=== PATIENT | male | born 1940 | race Caucasian/White ===

== ENCOUNTER → 2017-01-21 | Outpatient (CLI) | payer MEDICARE, OTHER ==
[~2017-01-21] MED LIST: AC325T PO; ASPI-983 PO; ATOR40TA70 PO; AZIT-21 PO; Aspirin PO; Atorvastatin Calcium PO; BUDE10.2 IH; CLOP75TA28 PO; CLPD75T PO; CODE118S2 PO; CYAN10006 PO; ESCI10TA55 PO; FOLI0.4T2 PO; FURO20TA4 PO; GUAI177L2 PO; LISI5TAB14 PO; MAGN1TAB34 PO; MTP25TSR PO; NAPR220C PO; NAPR500T3 PO; NITR0.4T SL; PANT40TA3 PO; PRD20T PO; UMEC62.5 IH
--- NOTE | 2017-01-21 10:38 | Diagnostic Imaging Report ---
PROCEDURE: US right lower extremity venous. TECHNIQUE: Multiple real-time grayscale images were obtained over the right lower extremity in various projections. Additional duplex Doppler and color Doppler images were also obtained. INDICATION: Right leg pain and swelling. COMPARISON: None. TECHNIQUE: The right lower extremity deep venous system was interrogated from the common femoral vein through the popliteal vein. These images were assessed for grayscale appearance, color and spectral Doppler blood flow, compression, and augmentation. FINDINGS: There is no evidence of intraluminal filling defect. Normal compression and augmentation is noted throughout. Soft tissues are unremarkable. IMPRESSION: No sonographic evidence of deep venous thrombosis in the right lower extremity. Dictated by: Dictated on workstation # [id number]
== END ==
LOC: RAD 09:53
PROVIDERS: ATTEND Nurse Practitioner Family
DX: M79.604 Pain in right leg (principal); R22.41 Localized swelling, mass and lump, right lower limb

== ENCOUNTER → 2017-03-25 | Outpatient (CLI) | payer MEDICARE, OTHER ==
--- NOTE | 2017-03-25 13:54 | Diagnostic Imaging Report ---
Three views of the lumbar spine. INDICATION: Back pain. FINDINGS: The alignment of the lumbar spine is satisfactory. The vertebral body heights are preserved. Disc heights also appear preserved. There are sclerotic degenerative changes in the wpt-pe-xthyp lumbar spine facet joints. Minimal osteophyte formation at the L4-L5 and L3-L4 levels seen. There is question of minimal posterior osteophytes at the L4-L5 level. The symphysis pubis demonstrates degenerative sclerotic changes. Calcifications in the right flank are seen which could be vascular or may relate to kidney stones. IMPRESSION: Lower lumbar spine degenerative changes. Dictated by: Dictated on workstation # [id number]
== END ==
LOC: RAD 11:02
PROVIDERS: ATTEND Family Medicine
DX: M47.816 Spondylosis without myelopathy or radiculopathy, lumbar region (principal)
CPT/HCPCS: 72100

== ENCOUNTER 2017-05-08 07:24 | Emergency (ER) | payer MEDICARE, OTHER ==
[~2017-05-08] VITALS: Ht 175.3 cm; Wt 108.9 kg
--- NOTE | 2017-05-08 08:25 | ED Abdominal Pain ---
General Chief Complaint: Abdominal/GI Problems Stated Complaint: PAIN RIGHT SIDE LOWER BACK Nursing Triage Note: c/o pain to lateral right upper abdomen. Onset approx 1000 yesterday. Pt fell in the garden yesterday morning. Mild nausea present. Hx of CABG. Sepsis Screen: No Definite Risk Source of Information: Patient, Spouse Exam Limitations: No Limitations History of Present Illness Time Seen By Provider: 08:20 Initial Comments Patient presents to ER by private conveyance with chief complaint of a nagging aching right middle lower quadrant and right flank abdominal pain that does not radiate for the past 2 days is progressively gotten worse and is worse on sitting but better when he reclines or stands up. It is not colicky. It is constant. It is occasionally brought on with nausea but no vomiting. He has also been belching more. It is not related whether or not he eats or not however he says he's been eating a lot less because of the pain. He has no diarrhea or constipation. He had to balance yesterday were normal and formed. He has vomited. No rash fevers or chills. No shortness of breath or chest pain. He does have a history of CABG and is on Plavix and aspirin. He's had colonoscopy before but has not been told whether he had diverticulosis or not. He's never had a kidney stone before. No history of trauma. Allergies and Home Medications Allergies Coded Allergies: No Known Drug Allergies (Unverified , 09/24/11) Home Medications Aspirin 81 Mg Tablet.dr, 81 MG PO HS, (Reported) Atorvastatin Calcium 40 Mg Tablet, 40 MG PO HS, (Reported) Budesonide/Formoterol Fumarate 10.2 Gm Hfa.aer.ad, 2 PUFF IH HS, (Reported) Clopidogrel Bisulfate 75 Mg Tablet, 75 MG PO DAILY, (Reported) Cyanocobalamin (Vitamin B-12) 1,000 Mcg Tablet, 2,000 MCG PO DAILY, (Reported) TAKES 2 (1000MCG) TABLETS Escitalopram Oxalate 10 Mg Tablet, 10 MG PO DAILY, (Reported) Folic Acid 0.4 Mg Tablet, 0.4 MG PO DAILY, (Reported) Furosemide 20 Mg Tablet, 20 MG PO every other day, (Reported) Naproxen 500 Mg Tablet, 500 MG PO BID PRN for PAIN, (Reported) Pantoprazole Sodium 40 Mg Tablet.dr, 40 MG PO DAILY, (Reported) Umeclidinium [place] 62.5 Mcg Blst.w.dev, 1 PUFF IH DAILY, (Reported) Review of Systems Constitutional: No chills, No diaphoresis Respiratory: Denies Cough, Denies Shortness of Air Cardiovascular: Denies Chest Pain, Denies Lightheadedness, Denies Palpitations Gastrointestinal: See HPI, Abdominal Pain, Denies Blood Streaked Stools, Denies Constipated, Denies Diarrhea, Nausea, Denies Vomiting Genitourinary: Denies Burning, Denies Discharge, Frequency (and hesitancy), Flank Pain (right) Musculoskeletal: back pain (right flank), No joint pain Skin: No pruritus, No rash Psychiatric/Neurological: Denies Numbness, Denies Paresthesia Endocrine: Denies Increased Hunger, Denies Increased Thrist, Denies Increased Urine Hematologic/Lymphatic: Denies Easy Bleeding, Denies Easy Bruising Past Eodnkza-Euooig-Ylodpd Hx Patient Social History Alcohol Use: Occasionally Uses Alcohol Beverage of Choice: Beer Recreational Drug Use: No Recent Foreign Travel: No Contact w/Someone Who Travel: No Recent Infectious Disease Expo: No Immunizations Up To Date Tetanus Booster (TDap): Unknown Date of Pneumonia Vaccine: Mar 29, 2015 Surgeries Surgeries: CABG, Coronary Stent Cardiovascular Cardiac Disorders: Coronary Artery Disease, High Cholesterol Reproductive System Hx Reproductive Disorders: No HIV/AIDS: No Gastrointestinal Gastrointestinal Disorders: Gastroesophageal Reflux Musculoskeletal Musculoskeletal Disorders: Chronic Back Pain HEENT HEENT Disorders: Cataract Blood Transfusions Adverse Reaction to a Blood Tr: No Family Medical History Family Medial History: Abdominal aortic aneurysm 19 FATHER (79 YEARS OLD) Physical Exam Vital Signs VS - Last 72 Hours, by Label 05/08/17 07:52 Temp 96.7 Pulse 55 Resp 16 B/P (MAP) 149/69 Pulse Ox 98 O2 Delivery Room Air Capillary Refill : Less Than 3 Seconds General Appearance: WD/WN, mild distress HEENT: PERRL/EOMI, pharynx normal Neck: non-tender, supple, normal inspection Respiratory: lungs clear, normal breath sounds, no respiratory distress Cardiovascular: normal peripheral pulses, regular rate, rhythm, no edema Peripheral Pulses: 2+ Dorsalis Pedis (R), 2+ Left Dors-Pedis (L) Gastrointestinal: normal bowel sounds, soft, tenderness (right flank mildly tender to palpation) Extremities: non-tender, normal inspection, normal capillary refill Back: normal inspection, no CVA tenderness Neurologic/Psychiatric: alert, oriented x 3 Skin: normal color, warm/dry Progress/Results/Core Measures Results/Orders Lab Results Laboratory Tests Test 05/08/17 08:23 05/08/17 08:45 Range/Units Urine Color YELLOW Urine Clarity VERY CLOUDY H Urine pH 5 5-9 Urine Specific Ingram 1.020 1.016-1.022 Urine Protein 2+ H NEGATIVE Urine Glucose (UA) NEGATIVE NEGATIVE Urine Ketones NEGATIVE NEGATIVE Urine Nitrite NEGATIVE NEGATIVE Urine Bilirubin NEGATIVE NEGATIVE Urine Urobilinogen NORMAL NORMAL MG/DL Urine Leukocyte Esterase 2+ H NEGATIVE Urine RBC (Auto) 5+ H NEGATIVE Urine RBC >100 H /HPF Urine WBC 5-10 H /HPF Urine Crystals PRESENT H /LPF Urine Amorphous Sediment FEW KEVIN URATES H /LPF Urine Bacteria FEW H /HPF Urine Casts NONE /LPF Urine Mucus NEGATIVE /LPF Urine Culture Indicated YES White Blood Count 8.9 4.3-11.0 10^3/uL Red Blood Count 5.10 4.35-5.85 10^6/uL Hemoglobin 14.8 13.3-17.7 G/DL Hematocrit 44 40-54 % Mean Corpuscular Volume 86 80-99 FL Mean Corpuscular Hemoglobin 29 25-34 PG Mean Corpuscular Hemoglobin Concent 34 32-36 G/DL Red Cell Distribution Width 12.9 10.0-14.5 % Platelet Count 168 130-400 10^3/uL Mean Platelet Volume 10.8 H 7.4-10.4 FL Neutrophils (%) (Auto) 81 H 42-75 % Lymphocytes (%) (Auto) 11 L 12-44 % Monocytes (%) (Auto) 8 0-12 % Eosinophils (%) (Auto) 1 0-10 % Basophils (%) (Auto) 0 0-10 % Neutrophils # (Auto) 7.1 1.8-7.8 X 10^3 Lymphocytes # (Auto) 1.0 1.0-4.0 X 10^3 Monocytes # (Auto) 0.7 0.0-1.0 X 10^3 Eosinophils # (Auto) 0.0 0.0-0.3 10^3/uL Basophils # (Auto) 0.0 0.0-0.1 10^3/uL Sodium Level 140 135-145 MMOL/L Potassium Level 3.9 3.6-5.0 MMOL/L Chloride Level 107 98-107 MMOL/L Carbon Dioxide Level 23 21-32 MMOL/L Anion Gap 10 5-14 MMOL/L Blood Urea Nitrogen 30 H 7-18 MG/DL Creatinine 1.48 H 0.60-1.30 MG/DL Estimat Glomerular Filtration Rate 46 BUN/Creatinine Ratio 20 Glucose Level 126 H 70-105 MG/DL Calcium Level 9.2 8.5-10.1 MG/DL Magnesium Level 2.0 1.8-2.4 MG/DL Total Bilirubin 1.7 H 0.1-1.0 MG/DL Aspartate Amino Transf (AST/SGOT) 19 5-34 U/L Alanine Aminotransferase (ALT/SGPT) 20 0-55 U/L Alkaline Phosphatase 97 40-136 U/L Total Protein 7.1 6.4-8.2 GM/DL Albumin 4.1 3.2-4.5 GM/DL My Orders Orders - LUIS M DEE Ct Abdomen/Pelvis Wo (05/08/17 08:22) Cbc With Automated Diff (05/08/17 08:22) Comprehensive Metabolic Panel (05/08/17 08:22) Magnesium (05/08/17 08:22) Ua Culture If Indicated (05/08/17 08:22) Urine Culture (05/08/17 08:23) Vital Signs/I&O Vital Sign - Last 12Hours 05/08/17 07:52 Temp 96.7 Pulse 55 Resp 16 B/P (MAP) 149/69 Pulse Ox 98 O2 Delivery Room Air Blood Pressure Mean: 95 Diagnostic Imaging Diagonstic Imaging: CT Plain Films/CT/US/NM/MRI: abdomen, pelvis Comments NAME: [facility] REC#: [id number] PHYSICIAN: LUIS M DEE MD CC: MUKESH NUNEZ MD; LUIS M DEE Page 2 of 2 RADIOLOGY REPORT VIA [facility]. [place], [place] CC: MUKESH NUNEZ MD; LUIS M DEE Page 1 of 2 RADIOLOGY REPORT NAME: [facility] REC#: [id number] PT STATUS: REG ER : 1940 PHYSICIAN: LUIS M DEE MD ADMIT DATE: 05/08/17/ER Signed Date of Exam: 05/08/17 CT ABDOMEN/PELVIS WO INDICATION: Right-sided abdominal pain. TECHNIQUE: The CT of the abdomen and pelvis was obtained without IV contrast. COMPARISON: There is no prior study for comparison. FINDINGS: The visualized portions of the lung bases are clear. There are no pleural fluid collections. There is no free intraperitoneal air. The liver shows no focal lesion without contrast. There are gallstones in the gallbladder with mild gallbladder distention without significant gallbladder wall thickening. The spleen, adrenals, and pancreas are normal. The left kidney appears unremarkable. The right kidney shows some perinephric edema. There is a cyst in the midpole of the right kidney. There is a stone in the midpole of the right kidney as well in the calyceal region measuring about 5 mm. The right ureter is not appreciably dilated but there is some periureteric edema. There is a tiny calcification along the right posterolateral bladder wall but it is not clear if this has passed into the bladder or is right at the UVJ. This measures less than 2 mm. There are bilateral fat-containing inguinal hernias. IMPRESSION: On the right side, there is perinephric edema without significant hydronephrosis. There is a nonocclusive stone in the midpole of the right kidney. There is a tiny stone or calcification along the right posterolateral bladder wall; however, it is not clear if this is within the bladder or right at the UVJ. There is also a benign-appearing cyst in the right kidney. The left kidney appears unremarkable. There are gallstones in the gallbladder with mild gallbladder distention without wall thickening. Dictated by: Dictated on workstation # [id number] Dict: 05/08/17 1022 Trans: 05/08/17 1101 Interpreted by: MUKESH NUNEZ MD Electronically signed by: MUKESH NUNEZ MD 05/08/17 1101 Reviewed: Reviewed by Me Departure Impression Impression: Primary Impression: Kidney stone Disposition: 01 HOME, SELF-CARE Condition: Stable Departure-Patient Inst. Decision time for Depature: 11:17 Referrals: KASEY MCCLELLAN MD (PCP/Family) Primary Care Physician Patient Instructions: Kidney Stones (DC) Add. Discharge Instructions: Drink lots of fluids including caffeine. If you're having pain you can put a heating pad to the site and use the Percocet one tablet every 6 hours. If you' re on Percocet realizes cause constipation as well as drowsiness and increase her risk of falls so do not mix with alcohol. Take the antibiotic one tablet of Keflex twice a day until completion. Take Flomax every night until you've passed the stone. Strain your urine until you catch the stone or you're no longer having symptoms. If you feel nauseated you can take one tablet of Zofran and allowed to absorb under the tongue. All discharge instructions reviewed with patient and/or family. Voiced understanding. Scripts Oxycodone HCl/Acetaminophen (Percocet 10-325 mg Tablet) 1 Each Tablet 1 EACH PO Q6H Y for BREAKTHROUGH PAIN, #20 TAB 0 Refills Prov: LUIS M DEE 05/08/17 Cephalexin (Keflex) 500 Mg Capsule 500 MG PO BID for 7 Days, #14 CAP 0 Refills Prov: LUIS M DEE 05/08/17 Ondansetron (Zofran Odt) 4 Mg Tab.rapdis 4 MG PO Q4H Y for NAUSEA/VOMITING-1ST LINE for 7 Days, #14 TAB 0 Refills Prov: LUIS M DEE 05/08/17 Tamsulosin HCl (Flomax) 0.4 Mg Cap 0.4 MG PO HS, #7 CAP 0 Refills Prov: LUIS M DEE 05/08/17 Copy Copies To 1: KASEY MCCLELLAN MD, TITUS J May 08, 2017 08:25
[2017-05-08 08:31] LABS: BILIRUBIN,URINE NEGATIVE (NEGATIVE); KETONES,URINE NEGATIVE (NEGATIVE); LEUKOCYTE ESTERASE ,URINE 2+ (NEGATIVE); NITRITE,URINE NEGATIVE (NEGATIVE); PH,URINE 5 (5-9); PROTEIN,URINE 2+ (NEGATIVE); UROBILINOGEN,URINE NORMAL (NORMAL)
[2017-05-08 08:59] LABS: BASOPHILS % (AUTO) 0 % (0-10); EOSINOPHILS % (AUTO) 1 % (0-10); LYMPHOCYTES % (AUTO) 11 % (12-44); MEAN CORPUSCULAR HEMOGLOBIN 29 PG (25-34); MEAN CORPUSCULAR HGB CONC 34 G/DL (32-36); MEAN CORPUSCULAR VOLUME 86 FL (80-99); MEAN PLATELET VOLUME 10.8 FL (7.4-10.4); MONOCYTES # (AUTO) 0.7 X 10^3 (0.0-1.0); MONOCYTES % (AUTO) 8 % (0-12); NEUTROPHILS # (AUTO) 7.1 X 10^3 (1.8-7.8); NEUTROPHILS % (AUTO) 81 % (42-75); PLATELET COUNT 168 10^3/uL (130-400); RED CELL DISTRIBUTION WIDTH 12.9 % (10.0-14.5); WHITE BLOOD COUNT 8.9 10^3/uL (4.3-11.0)
[2017-05-08 09:18] LABS: ALBUMIN 4.1 GM/DL (3.2-4.5); BILIRUBIN,TOTAL 1.7 MG/DL (0.1-1.0); CALCIUM 9.2 MG/DL (8.5-10.1); CREATININE SERUM 1.48 MG/DL (0.60-1.30); POTASSIUM 3.9 MMOL/L (3.6-5.0); TOTAL PROTEIN 7.1 GM/DL (6.4-8.2)
--- NOTE | 2017-05-08 10:35 | Diagnostic Imaging Report ---
INDICATION: Right-sided abdominal pain. TECHNIQUE: The CT of the abdomen and pelvis was obtained without IV contrast. COMPARISON: There is no prior study for comparison. FINDINGS: The visualized portions of the lung bases are clear. There are no pleural fluid collections. There is no free intraperitoneal air. The liver shows no focal lesion without contrast. There are gallstones in the gallbladder with mild gallbladder distention without significant gallbladder wall thickening. The spleen, adrenals, and pancreas are normal. The left kidney appears unremarkable. The right kidney shows some perinephric edema. There is a cyst in the midpole of the right kidney. There is a stone in the midpole of the right kidney as well in the calyceal region measuring about 5 mm. The right ureter is not appreciably dilated but there is some periureteric edema. There is a tiny calcification along the right posterolateral bladder wall but it is not clear if this has passed into the bladder or is right at the UVJ. This measures less than 2 mm. There are bilateral fat-containing inguinal hernias. IMPRESSION: On the right side, there is perinephric edema without significant hydronephrosis. There is a nonocclusive stone in the midpole of the right kidney. There is a tiny stone or calcification along the right posterolateral bladder wall; however, it is not clear if this is within the bladder or right at the UVJ. There is also a benign-appearing cyst in the right kidney. The left kidney appears unremarkable. There are gallstones in the gallbladder with mild gallbladder distention without wall thickening. Dictated by: Dictated on workstation # [id number]
[2017-05-08] MEDS ORDERED: OXYC-202 PO (11:22)
[2017-05-08] MEDS ORDERED: CEPH-507 PO (11:22)
[2017-05-08] MEDS ORDERED: TAMS0.4C98 PO (11:22)
[2017-05-08] MEDS ORDERED: ONDA4TAB8 PO (11:22)
[2017-05-08 11:43] VITALS: BP 142/83
== END 2017-05-08 11:43 | disposition home or self-care (01) ==
LOC: EDUNIT# 07:24 → ER 07:26
DX: N20.0 Calculus of kidney (principal); K21.9 Gastro-esophageal reflux disease without esophagitis; E78.00 Pure hypercholesterolemia, unspecified; I25.10 Atherosclerotic heart disease of native coronary artery without angina pectoris; G89.29 Other chronic pain; M54.9 Dorsalgia, unspecified; Z95.5 Presence of coronary angioplasty implant and graft; Z95.1 Presence of aortocoronary bypass graft; Z79.82 Long term (current) use of aspirin
CPT/HCPCS: 36415; 74176; 80053; 81000; 83735; 85025; 87088

== ENCOUNTER → 2018-02-18 | Outpatient (CLI) | payer MEDICARE, OTHER ==
[~2018-02-18] VITALS: Ht 175.3 cm; Wt 109.3 kg
[~2018-02-18] MED LIST changes: +ASCO100025 PO; +B CO1TAB4 PO; +CATHETER FLUSH 10 ML SYR IV PRN; +CEPH-507 PO; +ESCI20TA45 PO; +METO-352 PO; +NAPR-915 PO; -NAPR500T3 PO; +ONDA4TAB8 PO; +OXYC-202 PO; +REGADENOSON 0.4 MG/5 ML SYR (LEXISCAN) IV ONE; +ROSU10TA26 PO; +TAMS0.4C98 PO
[2018-02-18 08:50] VITALS: BP 176/78
[2018-02-18 09:14] VITALS: BP 149/92
--- NOTE | 2018-02-18 15:29 | STRESS TEST ---
DATE OF SERVICE: 02/18/2018 RESTING AND POST REGADENOSON TECHNETIUM 99M TETROFOSMIN SPECT CT IMAGING ORDERING PHYSICIAN: Rita Ragsdale APRN. PRIMARY PHYSICIAN: Dr. Espinosa. OTHER PHYSICIAN: Dr. Connolly. CLINICAL DIAGNOSES: Coronary artery disease, cardiomyopathy. Baseline images were carried out after injection of 10.64 mCi of technetium-99m Tetrofosmin. This was followed by 0.4 mg regadenoson and 31.2 mCi technetium-99m Tetrofosmin for stress imaging. The electrocardiogram showed sinus rhythm at baseline. Isolated premature ventricular contractions were seen. Electrocardiogram did not change significantly with regadenoson infusion. He tolerated the procedure well and did not report any symptoms. Review of images at rest and following stress indicates a predominantly transient inferolateral perfusion defect. Gated images show normal global left ventricular systolic function and normal regional wall motion. Left ventricular ejection fraction is calculated to be 63%. Left ventricular end diastolic volume is 85 mL. TID is absent (1.08). CONCLUSIONS: 1. The study is indicative of a moderate amount of inferolateral ischemia. 2. Normal global left ventricular systolic function with normal regional wall motion. Left ventricular ejection fraction is calculated to be 63%. Job ID: [id number] DocumentID: [id number] Dictated Date: 02/18/2018 13:09:49 Button Station Worker Date: 02/18/2018 15:28:49 Dictated By: SAMIR CONNOLLY MD, MA, FACP, FACC,
== END ==
LOC: CARD 07:27
PROVIDERS: ATTEND Nurse Practitioner Family
DX: I25.10 Atherosclerotic heart disease of native coronary artery without angina pectoris (principal); I25.5 Ischemic cardiomyopathy
CPT/HCPCS: 78452; 93017

== ENCOUNTER 2018-02-25 08:47 | Day surgery (SDC) | payer MEDICARE, OTHER ==
[~2018-02-25] VITALS: Ht 175.3 cm; Wt 112.0 kg
[2018-02-25] VITALS (10 sets, daily range): BP systolic 119–179; BP diastolic 60–90
[~2018-02-25 08:47] MED LIST changes: -ASCO100025 PO; -B CO1TAB4 PO; -CATHETER FLUSH 10 ML SYR IV PRN; -ESCI20TA45 PO; -METO-352 PO; -REGADENOSON 0.4 MG/5 ML SYR (LEXISCAN) IV ONE; -ROSU10TA26 PO
--- OUTSIDE RECORDS SUMMARY | 2018-02-25 08:55 | XMS REPORT | Continuity of Care Document ---
Author Author [facility] Organization [facility] Address Unknown Phone Unavailable Allergies Active Description Code Type Severity Reaction Onset Reported/Identified Relationship to Patient Clinical Status Yes No Known Drug Allergies [id number] Drug Allergy Unknown N/A 09/24/2011 Medications There is no data. Problems Date Dx Coded Attending Type Code Diagnosis Diagnosed By 09/24/2011 Ot 211.4 BENIGN NEOPL RECTUM/ANUS 09/24/2011 Ot 562.10 DIVERTICULOSIS COLON (W/O MENT OF HEMORR 09/24/2011 Ot V76.51 SCREEN MAL NEOP-COLON 10/26/2011 Ot 079.99 VIRAL INFECTION NOS 10/26/2011 Ot 780.60 FEVER, UNSPECIFIED 03/21/2015 SAMIR CONNOLLY MD, FACC FACP CCDS Ot 272.4 HYPERLIPIDEMIA NEC/NOS 03/21/2015 SAMIR CONNOLLY MD, FACC FACP CCDS Ot 278.00 OBESITY, NOS 03/21/2015 SAMIR CONNOLLY MD, FACC FACP CCDS Ot 338.29 OTHER CHRONIC PAIN 03/21/2015 SAMIR CONNOLLY MD, FACC FACP CCDS Ot 414.01 CORONARY ATHEROSCLEROSIS OF [place] CORON 03/21/2015 SAMIR CONNOLLY MD, FACC FACP CCDS Ot 414.12 DISSECTION OF CORONARY ARTERY 03/21/2015 SAMIR CONNOLLY MD, FACC FACP CCDS Ot 414.2 CHRONIC TOTAL OCCLUSION OF CORONARY [place] 03/21/2015 SAMIR CONNOLLY MD, FACC FACP CCDS Ot 428.0 CONGESTIVE HEART FAILURE NOS 03/21/2015 SAMIR CONNOLLY MD, FACC FACP CCDS Ot 428.31 ACUTE DIASTOLIC HRT FAILURE 03/21/2015 SAMIR CONNOLLY MD, FACC FACP CCDS Ot 447.1 STRICTURE OF ARTERY 03/21/2015 SAMIR CONNOLLY MD, FACC FACP CCDS Ot 593.9 RENAL URETERAL DIS NOS 03/21/2015 SAMIR CONNOLLY MD, FACC FACP CCDS Ot 719.41 JOINT PAIN-SHLDER 03/21/2015 SAMIR CONNOLLY MD, FACC FACP CCDS Ot 724.5 BACKACHE NOS 03/21/2015 CATHLEEN WHITE FACC, SAMIR FACP CCDS Ot E944.4 ADV EFF DIURETICS NEC 03/21/2015 CATHLEEN WHITE FACC, SAMIR FACP CCDS Ot E947.8 ADV EFF MEDICINAL NEC 03/21/2015 CATHLEEN WHITE FACC, SAMIR FACP CCDS Ot V85.36 BODY MASS INDEX 36.0-36.9, ADULT 04/06/2015 TU CLAYTON MD Ot 786.05 04/06/2015 TU CLAYTON MD Ot 786.59 04/28/2015 TU CLAYTON MD Ot 786.05 04/28/2015 TU CLAYTON MD Ot 786.59 05/11/2015 DIMITRI WHITE, JOSE CARLOS [place] Ot 414.00 CORON ATHEROSCLER NOS TYPE VESSEL, NATIV 05/11/2015 JOSE CARLOS MOSLEY MD Ot 724.5 BACKACHE NOS 05/11/2015 JOSE CARLOS MOSLEY MD Ot 782.0 SKIN SENSATION DISTURB 05/11/2015 JOSE CARLOS MOSLEY MD Ot V45.81 AORTOCORONARY BYPASS 05/11/2015 JOSE CARLOS MOSLEY MD Ot V45.82 PERCUTANEOUS TRANSLUM CORON ANGIOPLASTY 05/17/2015 TU CLYATON MD Ot 786.05 05/17/2015 TU CLAYTON MD Ot 786.59 05/17/2015 CATHLEEN WHITE FACC, SAMIR ARAMBULAP CCDS Ot V45.81 05/17/2015 CATHLEEN WHITE FACC, SAMIR FACP CCDS Ot V57.89 06/01/2015 CATHLEEN WHITE FACC, SAMIR FACP CCDS Ot V45.81 06/01/2015 CATHLEEN WHITE FACC, SAMIR FACP CCDS Ot V57.89 06/03/2015 CATHLEEN WHITE FACC, SAMIR FACP CCDS Ot V45.81 06/03/2015 CATHLEEN WHITE FACC, SAMIR FACP CCDS Ot V57.89 06/08/2015 CATHLEEN WHITE FACC, SAMIR FACP CCDS Ot V45.81 AORTOCORONARY BYPASS 06/08/2015 CATHLEEN WHITE FACC, SAMIR ARAMBULAP CCDS Ot V57.89 REHABILITATION PROC NEC 06/11/2015 CATHLEEN MD FACC, ALI FACP CCDS Ot V45.81 06/11/2015 CATHLEEN WHITE FACC, ALI FACP CCDS Ot V57.89 06/14/2015 CATHLEEN WHITE FACC, ALI FACP CCDS Ot V45.81 06/14/2015 CATHLEEN WHITE FACC, ALI FACP CCDS Ot V57.89 06/14/2015 CATHLEEN WHITE FACC, ALI FACP CCDS Ot 272.4 06/14/2015 CATHLEEN WHITE FACC, ALI FACP CCDS Ot 278.00 06/14/2015 CATHLEEN WHITE FACC, ALI FACP CCDS Ot 414.00 06/14/2015 CATHLEEN WHITE FACC, ALI FACP CCDS Ot 414.8 06/14/2015 CATHLEEN WHITE FACC, ALI FACP CCDS Ot V45.81 06/14/2015 CATHLEEN WHITE FACC, ALI FACP CCDS Ot V57.89 06/30/2015 TU CLAYTON MD Ot 786.05 06/30/2015 TU CLAYTON MD Ot 786.59 08/01/2015 KASEY MCCLELLAN MD Ot M50.32 08/09/2015 TU CLAYTON MD Ot 786.05 08/09/2015 TU CLAYTON MD Ot 786.59 08/09/2015 CATHLEEN WHITE FACC, ALI FACP CCDS Ot 272.4 08/09/2015 CATHLEEN WHITE FACC, ALI FACP CCDS Ot 278.00 08/09/2015 CATHLEEN WHITE FACC, ALI FACP CCDS Ot 414.00 08/09/2015 CATHLEEN ARAMBULAC, ALI FACP CCDS Ot 414.8 08/09/2015 CATHLEEN WHITE FACC, ALI FACP CCDS Ot V45.81 08/09/2015 CATHLEEN WHITE FACC, ALI FACP CCDS Ot V57.89 08/09/2015 KASEY MCCLELLAN MD Ot M50.32 08/09/2015 CATHLEEN ARAMBULAC, ALI FACP CCDS Ot E66.9 OBESITY, UNSPECIFIED 08/09/2015 CATHLEEN ARAMBULAC, ALI FACP CCDS Ot I25.10 ATHSCL HEART DISEASE OF [place] CORONARY 08/09/2015 CATHLEEN ARAMBULAC, ALI FACP CCDS Ot I70.0 ATHEROSCLEROSIS OF [place] 08/09/2015 CATHLEEN WIHTE FACC, SAMIR FACP CCDS Ot R07.89 OTHER CHEST PAIN 08/09/2015 CATHLEEN WHITE FACC, SAMIR FACP CCDS Ot R53.83 OTHER FATIGUE 08/09/2015 CATHLEEN WHITE FACC, ALI FACP CCDS Ot Z68.34 BODY MASS INDEX (BMI) 34.0-34.9, ADULT 08/09/2015 CATHLEEN WHITE FACC, ALI FACP CCDS Ot Z79.02 PENITENTIARY (CURRENT) USE OF ANTITHROMBOTI 08/09/2015 CATHLEEN WHITE FACC, SAMIR FACP CCDS Ot Z79.899 OTHER CORRECTION OFFICER (CURRENT) DRUG THERAPY 08/09/2015 CATHLEEN WHITE FACC, SAMIR FACP CCDS Ot Z87.891 PERSONAL HISTORY OF NICOTINE DEPENDENCE 08/09/2015 CATHLEEN WHITE FACC, SAMIR FACP CCDS Ot Z95.1 PRESENCE OF AORTOCORONARY BYPASS GRAFT 08/09/2015 CATHLEEN WHITE FACC, SAMIR FACP CCDS Ot Z98.61 CORONARY ANGIOPLASTY STATUS 08/23/2015 SAMIR CONNOLLY MD, FACC FACP CCDS Ot V45.81 08/23/2015 SAMIR CONNOLLY MD, FACC FACP CCDS Ot V57.89 09/11/2015 SAMIR CONNOLLY MD, FACC FACP CCDS Ot Z48.812 ENCNTR FOR SURGICAL AFTCR FOLLOWING SURG 09/11/2015 CATHLEEN WHITE FACC ALI FACP CCDS Ot Z95.1 PRESENCE OF AORTOCORONARY BYPASS GRAFT 09/14/2015 CATHLEEN WHITE FACC, ALI FACP CCDS Ot Z48.812 09/14/2015 CATHLEEN WHITE FACC, ALI FACP CCDS Ot Z95.1 09/14/2015 CATHLEEN WHITE FACC, ALI FACP CCDS Ot Z48.812 09/14/2015 CATHLEEN WHITE FACC, ALI FACP CCDS Ot Z95.1 09/14/2015 CATHLEEN WHITE FACC, ALI FACP CCDS Ot Z48.812 09/14/2015 CATHLEEN WHITE FACC, ALI FACP CCDS Ot Z95.1 09/14/2015 CATHLEEN WHITE FACC, ALI FACP CCDS Ot Z48.812 09/14/2015 CATHLEEN WHITE FACC, ALI FACP CCDS Ot Z95.1 10/26/2015 CATHLEEN WHITE FAC, ALI FACP CCDS Ot Z48.812 ENCNTR FOR SURGICAL AFTCR FOLLOWING SURG 10/26/2015 CATHLEEN WHITE FAC, ALI FACP CCDS Ot Z95.1 PRESENCE OF AORTOCORONARY BYPASS GRAFT 12/28/2015 YAHIR WHITE, RAMOS S Ot K21.9 GASTRO-ESOPHAGEAL REFLUX DISEASE WITHOUT 12/28/2015 YAHIR WHITE, RAMOS S Ot R06.02 SHORTNESS OF BREATH 12/29/2015 YAHIR WHITE, RAMOS S Ot K21.9 GASTRO-ESOPHAGEAL REFLUX DISEASE WITHOUT 12/29/2015 YAHIR WHITE, RAMOS S Ot R06.02 SHORTNESS OF BREATH 01/02/2016 YAHIR WHITE, RAMOS S Ot K21.9 GASTRO-ESOPHAGEAL REFLUX DISEASE WITHOUT 01/02/2016 YAHIR WHITE, RAMOS S Ot R06.02 SHORTNESS OF BREATH 01/17/2016 YAHIR WHITE, RAMOS S Ot K21.9 GASTRO-ESOPHAGEAL REFLUX DISEASE WITHOUT 01/17/2016 YAHIR WHITE, RAMOS S Ot R06.02 SHORTNESS OF BREATH 01/17/2016 YAHIR WHITE, RAMOS S Ot K21.9 GASTRO-ESOPHAGEAL REFLUX DISEASE WITHOUT 01/17/2016 YAHIR WHITE, RAMOS S Ot R06.02 SHORTNESS OF BREATH 04/03/2016 NABEEL WHITE, ROSITA Ferris Ot K21.9 GASTRO-ESOPHAGEAL REFLUX DISEASE WITHOUT 04/03/2016 NABEEL WHITE, ROSITA Ferris Ot Z01.818 ENCOUNTER FOR OTHER PREPROCEDURAL EXAMIN 04/04/2016 ROSITA LEES MD Ot K21.9 GASTRO-ESOPHAGEAL REFLUX DISEASE WITHOUT 04/04/2016 NABEEL WHITE, ROSITA Ferris Ot Z01.818 ENCOUNTER FOR OTHER PREPROCEDURAL EXAMIN 04/09/2016 NABEEL WHITE, ROSITA Ferris Ot K22.2 ESOPHAGEAL OBSTRUCTION 04/10/2016 ROSITA LEES MD Ot K22.2 ESOPHAGEAL OBSTRUCTION 04/10/2016 ROSITA LEES MD Ot K22.2 ESOPHAGEAL OBSTRUCTION 08/13/2016 TU CLAYTON MD Ot 786.05 SHORTNESS OF BREATH 08/13/2016 TU CLAYTON MD Ot 786.59 CHEST PAIN NEC 08/13/2016 CATHLEEN WHITE FAC, ALI FACP CCDS Ot 272.4 HYPERLIPIDEMIA NEC/NOS 08/13/2016 CATHLEEN WHITE FACC, ALI FACP CCDS Ot 278.00 OBESITY, NOS 08/13/2016 CATHLEEN WHITE FACC, ALI FACP CCDS Ot 414.00 CORON ATHEROSCLER NOS TYPE VESSEL, NATIV 08/13/2016 CATHLEEN WHITE FACC, ALI FACP CCDS Ot 414.8 CHR ISCHEMIC HRT DIS NEC 08/13/2016 VY WHITE, KASEY Gonsalez Ot M50.32 OTHER CERVICAL DISC DEGENERATION, MID-CE 08/13/2016 RAMOS SINCLAIR MD S Ot K21.9 GASTRO-ESOPHAGEAL REFLUX DISEASE WITHOUT 08/13/2016 RAMOS SINCLAIR MD S Ot R06.02 SHORTNESS OF BREATH 08/13/2016 RAMOS SINCLAIR MD S Ot K21.9 GASTRO-ESOPHAGEAL REFLUX DISEASE WITHOUT 08/13/2016 RAMOS SINCLAIR MD S Ot R06.02 SHORTNESS OF BREATH 08/14/2016 CATHLEEN WHITE FACC, SAMIR FACP CCDS Ot E66.09 OTHER OBESITY DUE TO EXCESS CALORIES 08/14/2016 CATHLEEN WHITE FACC, ALI FACP CCDS Ot G47.33 OBSTRUCTIVE SLEEP APNEA (ADULT) (PEDIATR 08/14/2016 CATHLEEN WHITE FACC, ALI FACP CCDS Ot I25.10 ATHSCL HEART DISEASE OF [place] CORONARY 08/14/2016 CATHLEEN WHITE FACC, ALI FACP CCDS Ot I65.23 OCCLUSION AND STENOSIS OF [place] 08/14/2016 CATHLEEN WHITE FACC, ALI FACP CCDS Ot R06.02 SHORTNESS OF BREATH 08/14/2016 CATHLEEN WHITE FACC, ALI FACP CCDS Ot E66.09 OTHER OBESITY DUE TO EXCESS CALORIES 08/14/2016 CATHLEEN WHITE FACC, ALI FACP CCDS Ot G47.33 OBSTRUCTIVE SLEEP APNEA (ADULT) (PEDIATR 08/14/2016 CATHLEEN ARAMBULAC, ALI FACP CCDS Ot I25.10 ATHSCL HEART DISEASE OF [place] CORONARY 08/14/2016 CATHLEEN WHITE FACC, ALI FACP CCDS Ot I65.23 OCCLUSION AND STENOSIS OF [place] 08/14/2016 CATHLEEN WHITE FACC, ALI FACP CCDS Ot R06.02 SHORTNESS OF BREATH 09/06/2016 CATHLEEN WHITE FACC, ALI FACP CCDS Ot E66.09 OTHER OBESITY DUE TO EXCESS CALORIES 09/06/2016 CATHLEEN WHITE FACC, ALI FACP CCDS Ot G47.33 OBSTRUCTIVE SLEEP APNEA (ADULT) (PEDIATR 09/06/2016 CATHLEEN WHITE FACC, SAMIR [facility] CCDS Ot I25.10 ATHSCL HEART DISEASE OF [place] CORONARY 09/06/2016 CATHLEEN WHITE FACC, [facility] CCDS Ot I65.23 OCCLUSION AND STENOSIS OF [place] 09/06/2016 CATHLEEN WHITE FACC, SAMIR [facility] CCDS Ot R06.02 SHORTNESS OF BREATH 01/21/2017 SHEKHAR DAMICO SCROLL MACHINE OPERATOR Ot M79.604 PAIN IN RIGHT LEG 01/21/2017 SHEKHAR DAMICO SCROLL MACHINE OPERATOR Ot M79.604 PAIN IN RIGHT LEG 01/27/2017 SHEKHAR DAMICO SCROLL MACHINE OPERATOR Ot M79.604 PAIN IN RIGHT LEG 01/27/2017 SHEKHAR DAMICO SCROLL MACHINE OPERATOR Ot R22.41 LOCALIZED SWELLING, MASS AND LUMP, RIGHT 02/18/2017 SHEKHAR DAMICO SCROLL MACHINE OPERATOR Ot M79.604 PAIN IN RIGHT LEG 02/18/2017 SHEKHAR DAMICO SCROLL MACHINE OPERATOR Ot R22.41 LOCALIZED SWELLING, MASS AND LUMP, RIGHT 03/26/2017 KASEY MCCLELLAN MD Ot M47.816 SPONDYLOSIS W/O MYELOPATHY OR RADICULOPA 04/17/2017 KASEY MCCLELLAN MD Ot M47.816 SPONDYLOSIS W/O MYELOPATHY OR RADICULOPA 05/08/2017 LUIS M DEE MD Ot E78.00 PURE HYPERCHOLESTEROLEMIA, UNSPECIFIED 05/08/2017 LUIS M DEE MD Ot G89.29 OTHER CHRONIC PAIN 05/08/2017 LUIS M DEE MD Ot I25.10 ATHSCL HEART DISEASE OF [place] CORONARY 05/08/2017 LUIS M DEE MD Ot K21.9 GASTRO-ESOPHAGEAL REFLUX DISEASE WITHOUT 05/08/2017 LUIS M DEE MD Ot M54.5 LOW BACK PAIN 05/08/2017 LUIS M DEE MD Ot M54.9 DORSALGIA, UNSPECIFIED 05/08/2017 LUIS M DEE MD Ot N20.0 CALCULUS OF KIDNEY 05/08/2017 LUIS M DEE MD Ot Z79.82 CORRECTION OFFICER (CURRENT) USE OF ASPIRIN 05/08/2017 LUIS M DEE MD Ot Z95.1 PRESENCE OF AORTOCORONARY BYPASS GRAFT 05/08/2017 LUIS M DEE MD Ot Z95.5 PRESENCE OF CORONARY ANGIOPLASTY IMPLANT 05/10/2017 LUIS M DEE MD Ot E78.00 PURE HYPERCHOLESTEROLEMIA, UNSPECIFIED 05/10/2017 LUIS M DEE MD Ot G89.29 OTHER CHRONIC PAIN 05/10/2017 LUIS M DEE MD Ot I25.10 ATHSCL HEART DISEASE OF [place] CORONARY 05/10/2017 LUIS M DEE MD Ot K21.9 GASTRO-ESOPHAGEAL REFLUX DISEASE WITHOUT 05/10/2017 LUIS M DEE MD Ot M54.5 LOW BACK PAIN 05/10/2017 LUIS M DEE MD Ot M54.9 DORSALGIA, UNSPECIFIED 05/10/2017 LUIS M DEE MD Ot N20.0 CALCULUS OF KIDNEY 05/10/2017 LUIS M DEE MD Ot Z79.82 PENITENTIARY (CURRENT) USE OF ASPIRIN 05/10/2017 LUIS M DEE MD Ot Z95.1 PRESENCE OF AORTOCORONARY BYPASS GRAFT 05/10/2017 LUIS M DEE MD Ot Z95.5 PRESENCE OF CORONARY ANGIOPLASTY IMPLANT 02/13/2018 TU CLAYTON MD Ot 786.05 SHORTNESS OF BREATH 02/13/2018 TU CLAYTON MD Ot 786.59 CHEST PAIN NEC 02/13/2018 CATHLEEN WHITE FACC, ALI FACP CCDS Ot 272.4 HYPERLIPIDEMIA NEC/NOS 02/13/2018 CATHLEEN WHITE FACC, ALI FACP CCDS Ot 278.00 OBESITY, NOS 02/13/2018 CATHLEEN WHITE FACC, ALI FACP CCDS Ot 414.00 CORON ATHEROSCLER NOS TYPE VESSEL, NATIV 02/13/2018 CATHLEEN WHITE FACC, ALI FACP CCDS Ot 414.8 CHR ISCHEMIC HRT DIS NEC 02/13/2018 KASEY MCCLELLAN MD Ot M50.32 OTHER CERVICAL DISC DEGENERATION, MID-CE 02/13/2018 RAMOS SINCLAIR MD Ot K21.9 GASTRO-ESOPHAGEAL REFLUX DISEASE WITHOUT 02/13/2018 RAMOS SINCLAIR MD Ot R06.02 SHORTNESS OF BREATH 02/13/2018 RAMOS SINCLAIR MD Ot K21.9 GASTRO-ESOPHAGEAL REFLUX DISEASE WITHOUT 02/13/2018 YAHIR MD, RAMOS S Ot R06.02 SHORTNESS OF BREATH 02/13/2018 CATHLEEN WHITE FACC, SAMIR FACP CCDS Ot E66.09 OTHER OBESITY DUE TO EXCESS CALORIES 02/13/2018 CATHLEEN WHITE FACC, ALI FACP CCDS Ot G47.33 OBSTRUCTIVE SLEEP APNEA (ADULT) (PEDIATR 02/13/2018 CATHLEEN WHITE FACC, ALI FACP CCDS Ot I25.10 ATHSCL HEART DISEASE OF [place] CORONARY 02/13/2018 CATHLEEN WHITE FACC, ALI FACP CCDS Ot I65.23 OCCLUSION AND STENOSIS OF [place] 02/13/2018 CATHLEEN WHITE FACC, ALI FACP CCDS Ot R06.02 SHORTNESS OF BREATH 02/13/2018 SHEKHAR DAMICO SCROLL MACHINE OPERATOR Ot M79.604 PAIN IN RIGHT LEG 02/13/2018 SHEKHAR DAMICO SCROLL MACHINE OPERATOR Ot R22.41 LOCALIZED SWELLING, MASS AND LUMP, RIGHT 02/13/2018 VY WHITE, KASEY Gonsalez Ot M47.816 SPONDYLOSIS W/O MYELOPATHY OR RADICULOPA Procedures Code Description Performed By Performed On 00.41 PROCEDURE ON TWO VESSELS 03/19/2015 00.48 INSERTION OF FOUR OR MORE VASCULAR STENT 03/19/2015 00.66 PERCUTANEOUS TRANSLUMINAL CORONARY ANGIO 03/19/2015 36.06 CORONARY ARTERY STENT INSERTION NON-DRUG 03/19/2015 88.42 CONTRAST AORTOGRAM 03/19/2015 99.20 INJECT/INFUSE PLATELET INHIBITOR 03/19/2015 Results Test Result Range Whole blood basic metabolic panel - 08/13/16 07:51 Serum or plasma sodium measurement (moles/volume) 142 mmol/L 135-145 Serum or plasma potassium measurement (moles/volume) 4.6 mmol/L 3.6-5.0 Serum or plasma chloride measurement (moles/volume) 106 mmol/L 98-107 Carbon dioxide 27 mmol/L 21-32 Serum or plasma anion gap determination (moles/volume) 9 mmol/L 5-14 Serum or plasma urea nitrogen measurement (mass/volume) 19 mg/dL 7-18 Serum or plasma creatinine measurement (mass/volume) 1.39 mg/dL 0.60-1.30 Serum or plasma urea nitrogen/creatinine mass ratio 14 NRG Serum or plasma creatinine measurement with calculation of estimated glomerular filtration rate 50 NRG Serum or plasma glucose measurement (mass/volume) 120 mg/dL 70-105 Serum or plasma calcium measurement (mass/volume) 9.0 mg/dL 8.5-10.1 Complete urinalysis with reflex to culture - 05/08/17 08:23 Urine color determination YELLOW NRG Urine clarity determination VERY CLOUDY NRG Urine pH measurement by test strip 5 5-9 Specific gravity of urine by test strip 1.020 1.016- 1.022 Urine protein assay by test strip, semi-quantitative 2+ NEGATIVE Urine glucose detection by automated test strip NEGATIVE NEGATIVE Erythrocytes detection in urine sediment by light microscopy 5+ NEGATIVE Urine ketones detection by automated test strip NEGATIVE NEGATIVE Urine nitrite detection by test strip NEGATIVE NEGATIVE Urine total bilirubin detection by test strip NEGATIVE NEGATIVE Urine urobilinogen measurement by automated test strip (mass/volume) NORMAL NORMAL Urine leukocyte esterase detection by dipstick 2+ NEGATIVE Automated urine sediment erythrocyte count by microscopy (number/high power field) > [HPF] NRG Automated urine sediment leukocyte count by microscopy (number/high power field ) [HPF] NRG Bacteria detection in urine sediment by light microscopy FEW NRG Crystals detection in urine sediment by light microscopy PRESENT NRG Casts detection in urine sediment by light microscopy NONE NRG Mucus detection in urine sediment by light microscopy NEGATIVE NRG Complete urinalysis with reflex to culture YES NRG Amorphous sediment detection in urine sediment by light microscopy FEW KEVIN URATES NRG Bacterial urine culture - 05/08/17 08:23 URINE CULTURE RESULTS LOW COLONY COUNT NRG Complete blood count (CBC) with automated white blood cell (WBC) differential - 05/08/17 08:45 Blood leukocytes automated count (number/volume) 8.9 10*3/uL 4.3-11.0 Blood erythrocytes automated count (number/volume) 5.10 10*6/uL 4.35-5.85 Venous blood hemoglobin measurement (mass/volume) 14.8 g/dL 13.3-17.7 Blood hematocrit (volume fraction) 44 % 40-54 Automated erythrocyte mean corpuscular volume 86 [foz_us] 80-99 Automated erythrocyte mean corpuscular hemoglobin (mass per erythrocyte) 29 pg 25-34 Automated erythrocyte mean corpuscular hemoglobin concentration measurement ( mass/volume) 34 g/dL 32-36 Automated erythrocyte distribution width ratio 12.9 % 10.0-14.5 Automated blood platelet count (count/volume) 168 10*3/uL 130-400 Automated blood platelet mean volume measurement 10.8 [foz_us] 7.4-10.4 Automated blood neutrophils/100 leukocytes 81 % 42-75 Automated blood lymphocytes/100 leukocytes 11 % 12-44 Blood monocytes/100 leukocytes 8 % 0-12 Automated blood eosinophils/100 leukocytes 1 % 0-10 Automated blood basophils/100 leukocytes 0 % 0-10 Blood neutrophils automated count (number/volume) 7.1 10*3 1.8-7.8 Blood lymphocytes automated count (number/volume) 1.0 10*3 1.0-4.0 Blood monocytes automated count (number/volume) 0.7 10*3 0.0-1.0 Automated eosinophil count 0.0 10*3/uL 0.0-0.3 Automated blood basophil count (count/volume) 0.0 10*3/uL 0.0-0.1 Comprehensive metabolic panel - 05/08/17 08:45 Serum or plasma sodium measurement (moles/volume) 140 mmol/L 135-145 Serum or plasma potassium measurement (moles/volume) 3.9 mmol/L 3.6-5.0 Serum or plasma chloride measurement (moles/volume) 107 mmol/L 98-107 Carbon dioxide 23 mmol/L 21-32 Serum or plasma anion gap determination (moles/volume) 10 mmol/L 5-14 Serum or plasma urea nitrogen measurement (mass/volume) 30 mg/dL 7-18 Serum or plasma creatinine measurement (mass/volume) 1.48 mg/dL 0.60-1.30 Serum or plasma urea nitrogen/creatinine mass ratio 20 NRG Serum or plasma creatinine measurement with calculation of estimated glomerular filtration rate 46 NRG Serum or plasma glucose measurement (mass/volume) 126 mg/dL 70-105 Serum or plasma calcium measurement (mass/volume) 9.2 mg/dL 8.5-10.1 Serum or plasma total bilirubin measurement (mass/volume) 1.7 mg/dL 0.1-1.0 Serum or plasma alkaline phosphatase measurement (enzymatic activity/volume) 97 U/L 40-136 Serum or plasma aspartate aminotransferase measurement (enzymatic activity/ volume) 19 U/L 5-34 Serum or plasma alanine aminotransferase measurement (enzymatic activity/volume ) 20 U/L 0-55 Serum or plasma protein measurement (mass/volume) 7.1 g/dL 6.4-8.2 Serum or plasma albumin measurement (mass/volume) 4.1 g/dL 3.2-4.5 Magnesium - 05/08/17 08:45 Magnesium 2.0 mg/dL 1.8-2.4 Encounters ACCT No. Visit Date/Time Discharge Status Pt. Type Provider Facility Loc./Unit Complaint [id number] 02/18/2018 07:27:00 02/18/2018 23:59:59 CLS Outpatient JOI PALACIOS [facility] CARD CAD,CARDIOMYOPATHY, ISCHEMIC [id number] 05/08/2017 07:26:00 05/08/2017 11:43:00 DIS Emergency LUIZ WHITE, LUIS M Crenshaw [facility] ER PAIN RIGHT SIDE LOWER BACK [id number] 03/25/2017 11:02:00 03/25/2017 23:59:59 CLS Outpatient KASEY MCCLELLAN MD [facility] RAD BACK PAIN [id number] 01/21/2017 09:53:00 01/21/2017 23:59:59 CLS Outpatient SHEKHAR DAMICO [facility] RAD R LEG PAIN, SWELLING [id number] 08/13/2016 07:43:00 08/13/2016 23:59:59 CLS Outpatient CATHLEEN WHITE FACC, SAMIR STARKS CCDS [facility] RAD OBESITY,BENJAMIN, CAD,SOB [id number] 04/09/2016 08:34:00 04/09/2016 11:45:00 DIS Outpatient ROSITA LEES MD [facility] SDC REFLEX [id number] 04/03/2016 05:38:00 04/03/2016 09:54:00 DIS Outpatient ROSITA LEES MD [facility] PREOP REFLEX [id number] 12/28/2015 16:23:00 12/28/2015 23:59:59 CLS Outpatient RAMOS SINCLAIR MD [facility] RT SOA [id number] 12/27/2015 08:34:00 12/27/2015 23:59:59 CLS Outpatient RAMOS SINCLAIR MD [facility] RAD GERD [id number] 10/24/2015 12:01:00 10/26/2015 13:19:00 DIS Outpatient CATHLEEN WHITE FACC, ALI FACP CCDS [facility] CR STATUS POST ACB [id number] 08/31/2015 08:33:00 09/11/2015 00:01:00 DIS Outpatient CATHLEEN WHITE FACC, ALI FACP CCDS [facility] CR STATUS POST ACB [id number] 08/09/2015 07:30:00 08/09/2015 17:20:00 DIS Outpatient CATHLEEN WHITE FACC, ALI FACP CCDS [facility] CATH CAD,CHEST PAIN,HLP,CARDIO MYOPATHY [id number] 07/07/2015 07:26:00 07/07/2015 23:59:59 CLS Outpatient KASEY MCCLELLAN MD [facility] RAD NECK PAIN [id number] 06/08/2015 11:41:00 06/08/2015 00:01:00 DIS Outpatient CATHLEEN WHITE FACC, ALI FACP CCDS [facility] CR STATUS POST ACB [id number] 05/18/2015 10:01:00 05/18/2015 23:59:59 CLS Outpatient CATHLEEN WHITE FACC, ALI FACP CCDS [facility] CARD CAD,ISCHEMIC CARDIOMOPATHY [id number] 05/11/2015 16:31:00 05/11/2015 18:38:00 DIS Emergency JOSE CARLOS MOSLEY MD [facility] ER L ARM PAIN [id number] 03/18/2015 12:00:00 03/21/2015 15:04:00 DIS Inpatient CATHLEEN WHITE FACC, ALI FACP CCDS [facility] CSD ANGINA,CHF [id number] 03/16/2015 11:08:00 03/16/2015 23:59:59 CLS Outpatient TU CLAYTON MD [facility] RAD SOB,CHEST PRESSURE [id number] 10/26/2011 10:45:00 Document Registration [id number] 09/24/2011 07:53:00 Document Registration
--- OUTSIDE RECORDS SUMMARY | 2018-02-25 08:55 | XMS REPORT | CCD ---
Author Author [facility]osa Organization [facility] Address [address] [place] [address] Phone Care Team Providers Care Senior Web Analyst Name Role Phone PP Unavailable CCM Unavailable Summary Purpose Interface Exchange Insurance Providers Payer name Policy type / Coverage type Covered republican ID Effective Begin Date Effective End Date WPS Medicare Part B Medicare Part B [id number] Unknown Unknown Cigna Medicare Part B [id number] Unknown Unknown Family history Grandfather Diagnosis Age At Onset lung cancer Unknown Runs in the family Diagnosis Age At Onset Cancer Unknown Grandfather Diagnosis Age At Onset Cancer Unknown Social History Social History Element Codes Description Effective Dates Marital status Unknown Nitza 07/05/2015 Number of children Unknown 3 07/05/2015 Employment Unknown Retired 07/05/[address]: 1710178 Quit over 10 years ago 07/05/[address]: 179261 Currently drinks alcohol beer 07/05/2015 Allergies, Adverse Reactions, Alerts Allergies, Adverse Reactions, Alerts data not found Past Medical History Illness Codes Condition Status Onset Date Resolved Date Cervicalgia ICD-9: 723.1 ICD-10: M54.2 Active 10/07/2017 Unknown Essential (primary) hypertension ICD-9: 401.1 ICD-10: I10 Active 07/24/2016 Unknown Myalgia ICD-9: 729.1 ICD-10: M79.1 Active 10/07/2017 Unknown Generalized anxiety disorder ICD-9: 300.02 ICD-10: F41.1 Active 03/21/2016 Unknown Major depressive disorder, recurrent, mild ICD-9: 296.31 ICD-10: F33.0 Active 03/21/2016 Unknown Low back pain ICD-9: 724.2 ICD-10: M54.5 Active 03/19/2017 Unknown Mixed hyperlipidemia ICD-9: 272.2 ICD-10: E78.2 Active 07/24/2016 Unknown Contusion of right lower leg, initial encounter ICD-9: 924.5 ICD-10: S80.11XA Active 08/02/2016 Unknown Localized edema ICD-9 : 782.3 ICD-10: R60.0 Active 01/21/2017 Unknown Pain in right lower leg ICD-9: 729.5 ICD-10: M79.661 Active 01/21/2017 Unknown Major depressive disorder, recurrent, moderate ICD-9: 296.32 ICD-10: F33.1 Active 01/11/2016 Unknown Encounter for general adult medical examination without abnormal findings ICD-9: V70.9 ICD-10: Z00.00 Active 11/16/2016 Unknown Chronic obstructive pulmonary disease with (acute) exacerbation ICD-9: 491.21 ICD-10: J44.1 Active 07/24/2016 Unknown Acute laryngopharyngitis ICD-9: 465.0 ICD-10: J06.0 Active 09/16/2016 Unknown Other allergic rhinitis ICD-9: 477.8 ICD-10: J30.89 Active 09/16/2016 Unknown Acute recurrent maxillary sinusitis ICD-9: 461.0 ICD-10: J01.01 Active 07/24/2016 Unknown Gastro-esophageal reflux disease without esophagitis ICD-9: 530.81 ICD-10: K21.9 Active 03/21/2016 Unknown Coronary angioplasty status ICD-9: V45.82 ICD-10: Z98.61 Active 01/11/2016 Unknown Essential (primary) hypertension ICD-9: 401.9 ICD-10: I10 Active 01/11/2016 Unknown Hyperlipidemia, unspecified ICD-9: 272.4 ICD-10: E78.5 Active 01/11/2016 Unknown Hypertension Unknown Active 09/13/2015 Unknown Hyperlipidemia Unknown Active 07/05/2015 Unknown Osteoarthritis Unknown Active 07/05/2015 Unknown Personal history of other diseases of the circulatory system ICD-9: V12.59 ICD-10: Z86.79 Active 07/04/2015 Unknown Polyneuropathy, unspecified ICD-9: 356.9 ICD-10: G62.9 Active 07/04/2015 Unknown Unspecified osteoarthritis, unspecified site ICD-9: 715.90 ICD-10: M19.90 Active 07/04/2015 Unknown Problems Condition Codes Effective Dates Condition Status Cervicalgia ICD-9: 723.1 ICD-10: M54.2 10/07/2017 Active Essential (primary) hypertension ICD-9: 401.1 ICD-10: I10 07/24/2016 Active Myalgia ICD-9: 729.1 ICD-10: M79.1 10/07/2017 Active Generalized anxiety disorder ICD-9: 300.02 ICD-10: F41.1 03/21/2016 Active Major depressive disorder, recurrent, mild ICD-9: 296.31 ICD-10: F33.0 03/21/2016 Active Low back pain ICD-9: 724.2 ICD-10: M54.5 03/19/2017 Active Mixed hyperlipidemia ICD-9: 272.2 ICD-10: E78.2 07/24/2016 Active Contusion of right lower leg, initial encounter ICD-9: 924.5 ICD-10: S80.11XA 08/02/2016 Active Localized edema ICD-9 : 782.3 ICD-10: R60.0 01/21/2017 Active Pain in right lower leg ICD-9: 729.5 ICD-10: M79.661 01/21/2017 Active Major depressive disorder, recurrent, moderate ICD-9: 296.32 ICD-10: F33.1 01/11/2016 Active Encounter for general adult medical examination without abnormal findings ICD-9: V70.9 ICD-10: Z00.00 11/16/2016 Active Chronic obstructive pulmonary disease with (acute) exacerbation ICD-9: 491.21 ICD-10: J44.1 07/24/2016 Active Acute laryngopharyngitis ICD-9: 465.0 ICD-10: J06.0 09/16/2016 Active Other allergic rhinitis ICD-9: 477.8 ICD-10: J30.89 09/16/2016 Active Acute recurrent maxillary sinusitis ICD-9: 461.0 ICD-10: J01.01 07/24/2016 Active Gastro-esophageal reflux disease without esophagitis ICD-9: 530.81 ICD-10: K21.9 03/21/2016 Active Coronary angioplasty status ICD-9: V45.82 ICD-10: Z98.61 01/11/2016 Active Essential (primary) hypertension ICD-9: 401.9 ICD-10: I10 01/11/2016 Active Hyperlipidemia, unspecified ICD-9: 272.4 ICD-10: E78.5 01/11/2016 Active Hypertension Unknown 09/13/2015 Active Hyperlipidemia Unknown 07/05/2015 Active Osteoarthritis Unknown 07/05/2015 Active Personal history of other diseases of the circulatory system ICD-9: V12.59 ICD-10: Z86.79 07/04/2015 Active Polyneuropathy, unspecified ICD-9: 356.9 ICD-10: G62.9 07/04/2015 Active Unspecified osteoarthritis, unspecified site ICD-9: 715.90 ICD-10: M19.90 07/04/2015 Active Medications Medication Codes Instructions Start Date Stop Date Status Fill Instructions Crestor 10 mg tablet RxNorm: 811893 1 Tablet(s) PO every other day 10/07/2017 06/28/2019 Active naproxen 500 mg tablet RxNorm: 459441 TAKE ONE TABLET BY MOUTH TWICE DAILY NEEDED FOR PAIN 06/27/2017 12/23/2017 Active escitalopram 20 mg tablet RxNorm: 433001 1 Tablet(s) PO QPM 05/28/2018 Active pantoprazole 40 mg tablet,delayed release RxNorm: 763493 1 Tablet(s) PO BID 03/19/2017 05/07/2017 Inactive naproxen 500 mg tablet RxNorm: 097953 TAKE ONE TABLET BY MOUTH TWICE DAILY NEEDED FOR PAIN 02/11/2017 06/10/2017 Inactive naproxen 500 mg tablet RxNorm: 835684 TAKE ONE TABLET BY MOUTH TWICE DAILY NEEDED FOR PAIN 12/14/2016 02/10/2017 Inactive escitalopram 20 mg tablet RxNorm: 840693 1.5 Tablet(s) PO QPM 12/04/2016 06/02/2017 Inactive buspirone 5 mg tablet RxNorm: 053790 1 Tablet(s) PO BID 201612/03/2016 Inactive amoxicillin 500 mg capsule RxNorm: 582546 1 Capsule(s) PO TID 09/17/2016 09/26/2016 Inactive prednisone 20 mg tablet RxNorm: 784885 2 Tablet(s) PO daily 05/201709/21/2016 Inactive escitalopram 20 mg tablet RxNorm: 517048 1 Tablet(s) PO QPM 12/03/2016 Inactive naproxen 500 mg tablet RxNorm: 153464 TAKE ONE TABLET BY MOUTH TWICE DAILY NEEDED FOR PAIN 08/01/2016 11/28/2016 Inactive sulfamethoxazole 800 mg-trimethoprim 160 mg tablet RxNorm: 528545 1 Tablet(s) PO BID 07/25/2016 07/31/2016 Inactive Kenalog 40 mg/mL suspension for injection RxNorm: 4834341 Milliliter(s) Inj 07/25/2016 07/25/2016 Inactive Symbicort 80 mcg-4.5 mcg/actuation HFA aerosol inhaler RxNorm: 1599946 2 INH QHS 07/25/2016 09/11/2016 Inactive escitalopram 20 mg tablet RxNorm: 367078 1 Tablet(s) PO QPM 08/27/2016 Inactive alprazolam 0.5 mg disintegrating tablet RxNorm: 665356 1 Tablet(s) PO TID as needed anxiety 03/22/2016 11/13/2016 Inactive atorvastatin 20 mg tablet RxNorm: 772149 1 Tablet(s) PO daily 01/12/2016 10/06/2017 Inactive Lexapro 10 mg tablet RxNorm: 459874 1 Tablet(s) PO QPM 201503/21/2016 Inactive pantoprazole 40 mg tablet,delayed release RxNorm: 520285 1 Tablet(s) PO daily 10/13/2015 11/11/2015 Inactive pantoprazole 40 mg tablet,delayed release RxNorm: 130207 1 Tablet(s) PO BID 09/13/2015 10/12/2015 Inactive naproxen 500 mg tablet RxNorm: 894460 Tablet(s) PO BID as needed for pain 07/05/2015 07/31/2016 Inactive folic acid 400 mcg tablet RxNorm: 743047 1 Tablet(s) PO daily No Start Date Active Vitamin B12 500 mcg RxNorm: 2000 Microgram(s) PO daily No Start Date Active Tudorza Pressair 400 mcg/actuation breath activated RxNorm: 2968991 1 INH QAM No Start Date Active aspirin 81 mg capsule,delayed release RxNorm: 955762 1 Capsule(s) PO daily No Start Date Active Incruse Ellipta 62.5 mcg/actuation powder for inhalation RxNorm: 0386347 1 INH daily No Start Date Active clopidogrel 75 mg tablet RxNorm: 263328 1 Tablet(s) PO daily No Start Date Active Symbicort 80 mcg-4.5 mcg/actuation HFA aerosol inhaler RxNorm: 3958951 2 INH QHS No Start Date 07/24/2016 Inactive pantoprazole 40 mg tablet,delayed release RxNorm: 377087 1 Tablet(s) PO daily No Start Date 09/12/2015 Inactive atorvastatin 40 mg tablet RxNorm: 134528 1 Tablet(s) PO daily No Start Date 01/11/2016 Inactive furosemide 20 mg tablet RxNorm: 097601 1 Tablet(s) PO daily No Start Date 09/11/2016 Inactive naproxen 500 mg tablet RxNorm: 278291 Tablet(s) PO TID No Start Date 07/04/2015 Inactive Medication Administered Medication Codes Instructions Start Date Status Kenalog 40 mg/mL suspension for injection RxNorm: 3891007 Milliliter 07/25/2016 No longer Active Immunizations Vaccine Codes Date Status Pneumococcal CVX: 33 03/09/2015 completed Assessments Condition Codes Effective Dates Myalgia ICD-10: M79.1 ICD-9: 729.1 10/07/2017 Essential (primary) hypertension ICD-10: I10 ICD-9: 401.1 10/07/2017 Cervicalgia ICD-10: M54.2 ICD-9: 723.1 10/07/2017 Generalized anxiety disorder ICD-10: F41.1 ICD-9: 300.02 06/03/2017 Major depressive disorder, recurrent, mild ICD-10: F33.0 ICD-9: 296.31 06/03/2017 Mixed hyperlipidemia ICD-10: E78.2 ICD-9: 272.2 03/19/2017 Low back pain ICD-10: M54.5 ICD-9: 724.2 03/19/2017 Contusion of right lower leg, initial encounter ICD-10: S80.11XA ICD-9: 924.5 01/21/2017 Pain in right lower leg ICD-10: M79.661 ICD-9: 729.5 01/21/2017 Localized edema ICD-10: R60.0 ICD-9: 782.3 01/21/2017 Major depressive disorder, recurrent, moderate ICD-10: F33.1 ICD-9: 296.32 12/04/2016 Encounter for general adult medical examination without abnormal findings ICD-10: Z00.00 ICD-9: V70.9 11/16/2016 Chronic obstructive pulmonary disease with (acute) exacerbation ICD-10: J44.1 ICD-9: 491.21 11/14/2016 Other allergic rhinitis ICD-10: J30.89 ICD-9: 477.8 09/17/2016 Acute laryngopharyngitis ICD-10: J06.0 ICD-9: 465.0 09/17/2016 Acute recurrent maxillary sinusitis ICD-10: J01.01 ICD-9: 461.0 07/25/2016 Gastro-esophageal reflux disease without esophagitis ICD-10 : K21.9 ICD-9: 530.81 03/22/2016 Essential (primary) hypertension ICD-10: I10 ICD-9: 401.9 01/12/2016 Hyperlipidemia, unspecified ICD-10: E78.5 ICD-9: 272.4 01/12/2016 Coronary angioplasty status ICD-10: Z98.61 ICD-9: V45.82 01/12/2016 Unspecified osteoarthritis, unspecified site ICD-10: M19.90 ICD-9: 715.90 07/05/2015 Polyneuropathy, unspecified ICD-10: G62.9 ICD-9: 356.9 07/05/2015 Personal history of other diseases of the circulatory system ICD-10: Z86.79 ICD-9: V12.59 07/05/2015 Reason For Visit Reason For Visit Effective Dates Notes hypertension 10/07/2017 hypertension 06/03/2017 hypertension 03/19/2017 improved lower leg pain 01/21/2017 hypertension 12/04/2016 Annual Medicare Wellness Exam 11/16/2016 hypertension 11/14/2016 cough 09/17/2016 new lesion 08/03/2016 gastroesophageal reflux 07/25/2016 gastroesophageal reflux 03/22/2016 gastroesophageal reflux 01/12/2016 gastroesophageal reflux 10/13/2015 hyperlipidemia 09/13/2015 hyperlipidemia 07/05/2015 Results Observation Observation Code Item Item Code Result Date Tsh Ord6 hTSH II 1.54 uIU/mL 11/16/2016 Total Psa Ord10 PSA 1.92 ng/mL 11/16/2016 Cbc With Differential Ord2 WBC 4.80 K/ul 11/16/2016 Cbc With Differential Ord2 RBC 4.73 M/ul 11/16/2016 Cbc With Differential Ord2 HGB 14.3 g/dl 11/16/2016 Cbc With Differential Ord2 Neut% 57.5 % 11/16/2016 Cbc With Differential Ord2 HCT 42.5 % 11/16/2016 Cbc With Differential Ord2 Lymph% 30.4 % 11/16/2016 Cbc With Differential Ord2 MCV 89.9 fl 11/16/2016 Cbc With Differential Ord2 Henderson% 10.2 % 11/16/2016 Cbc With Differential Ord2 MCH 30.2 pg 11/16/2016 Cbc With Differential Ord2 Eos% 1.5 % 11/16/2016 Cbc With Differential Ord2 MCHC 33.6 pg 11/16/2016 Cbc With Differential Ord2 Baso% 0.4 % 11/16/2016 Cbc With Differential Ord2 PLT 150 K/ul 11/16/2016 Cbc With Differential Ord2 Neut ABS# 2.76 K/ul 11/16/2016 Cbc With Differential Ord2 RDW 13.5 % 11/16/2016 Cbc With Differential Ord2 Lymph ABS# 1.46 K/ul 11/16/2016 Cbc With Differential Ord2 Henderson ABS# 0.5 K/ul 11/16/2016 Cbc With Differential Ord2 Eos ABS# 0.1 K/ul 11/16/2016 Cbc With Differential Ord2 Baso ABS# 0.0 K/ul 11/16/2016 Comp Metabolic Irv122 NA 141 mEq/L 11/16/2016 Comp Metabolic Mlu957 K 4.2 mEq/L 11/16/2016 Comp Metabolic Tbb556 CL 106 mEq/L 11/16/2016 Comp Metabolic Mqh295 CO2 30.0 mEq/L 11/16/2016 Comp Metabolic Mkh779 ANION GAP 9 11/16/2016 Comp Metabolic Jsm451 GLUCOSE 118 mg/dL 11/16/2016 Comp Metabolic Njv196 Creat 1.2 mg/dL 11/16/2016 Comp Metabolic Gxn838 eGFR 61 ml/min/1.73m2 11/16/2016 Comp Metabolic Wna425 BUN 22 mg/dL 11/16/2016 Comp Metabolic Omh729 B/C Ratio 17.7 Ratio 11/16/2016 Comp Metabolic Yzi726 CALCIUM 9.2 mg/dL 11/16/2016 Comp Metabolic Mog908 ALK PHOS 91 U/L 11/16/2016 Comp Metabolic Iao979 AST(SGOT) 16 U/L 11/16/2016 Comp Metabolic Gtp534 ALT(SGPT) 16 U/L 11/16/2016 Comp Metabolic Mme477 BILI T 0.9 mg/dL 11/16/2016 Comp Metabolic Iad799 ALBUMIN 4.1 g/dL 11/16/2016 Comp Metabolic Lgq215 TPRO 6.4 g/dL 11/16/2016 Comp Metabolic Wds443 GLOB 2.3 g/dL 11/16/2016 Comp Metabolic Xkl351 A/G Ratio 1.8 Ratio 11/16/2016 Comp Metabolic Fkz118 Osmo 286 mOsmo 11/16/2016 Lipid Ord30 CHOL 142 mg/dL 11/16/2016 Lipid Ord30 HDL 33.0 mg/dl 11/16/2016 Lipid Ord30 TRIG 99 mg/dL 11/16/2016 Lipid Ord30 LDL 89 mg/dL 11/16/2016 Lipid Ord30 C/HDL 4.3 Ratio 11/16/2016 Magnesium Ord90 Mag 1.9 mg/dL 11/29/2015 Metabolic Ord15 NA 139 mEq/L 11/29/2015 Metabolic Ord15 K 4.2 mEq/L 11/29/2015 Metabolic Ord15 CL 105 mEq/L 11/29/2015 Metabolic Ord15 CO2 28.0 mEq/L 11/29/2015 Metabolic Ord15 GLUCOSE 120 mg/dL 11/29/2015 Metabolic Ord15 BUN 18 mg/dL 11/29/2015 Metabolic Ord15 Creat 1.2 mg/dL 11/29/2015 Metabolic Ord15 B/C Ratio 15.4 Ratio 11/29/2015 Metabolic Ord15 eGFR 65 ml/min/1.73m2 11/29/2015 Metabolic Ord15 Osmo 281 mOsmo 11/29/2015 Metabolic Ord15 ANION GAP 10 11/29/2015 Metabolic Ord15 CALCIUM 9.1 mg/dL 11/29/2015 Magnesium Ord90 Mag 1.8 mg/dL 08/01/2015 Comp Metabolic Ssq501 NA 138 mEq/L 08/01/2015 Comp Metabolic Reh857 K 4.2 mEq/L 08/01/2015 Comp Metabolic Xvu837 CL 104 mEq/L 08/01/2015 Comp Metabolic Irl840 CO2 27.0 mEq/L 08/01/2015 Comp Metabolic Zqr194 ANION GAP 11 08/01/2015 Comp Metabolic Dik649 GLUCOSE 118 mg/dL 08/01/2015 Comp Metabolic Iwy937 Creat 1.2 mg/dL 08/01/2015 Comp Metabolic Skw910 eGFR 66 ml/min/1.73m2 08/01/2015 Comp Metabolic Nri667 BUN 19 mg/dL 08/01/2015 Comp Metabolic Yaw873 B/C Ratio 16.4 Ratio 08/01/2015 Comp Metabolic Vnx921 CALCIUM 8.7 mg/dL 08/01/2015 Comp Metabolic Ifa715 ALK PHOS 85 U/L 08/01/2015 Comp Metabolic Jjo500 AST(SGOT) 16 U/L 08/01/2015 Comp Metabolic Nze438 ALT(SGPT) 20 U/L 08/01/2015 Comp Metabolic Qcf389 BILI T 0.7 mg/dL 08/01/2015 Comp Metabolic Smn057 ALBUMIN 3.9 g/dL 08/01/2015 Comp Metabolic Mts085 TPRO 6.2 g/dL 08/01/2015 Comp Metabolic Yhf208 GLOB 2.4 g/dL 08/01/2015 Comp Metabolic Zzj867 A/G Ratio 1.6 Ratio 08/01/2015 Comp Metabolic Iio137 Osmo 279 mOsmo 08/01/2015 Cbc With Differential Ord2 WBC 5.2 K/uL 08/01/2015 Cbc With Differential Ord2 LYM 1.8 K/uL 08/01/2015 Cbc With Differential Ord2 LYM% 34.5 % 08/01/2015 Cbc With Differential Ord2 NEUT/GRAN 3.2 K/uL 08/01/2015 Cbc With Differential Ord2 NEUT/GRAN % 60.9 % 08/01/2015 Cbc With Differential Ord2 MID 0.2 K/uL 08/01/2015 Cbc With Differential Ord2 MID% 4.6 % 08/01/2015 Cbc With Differential Ord2 RBC 5.08 M/uL 08/01/2015 Cbc With Differential Ord2 HGB 14.2 g/dL 08/01/2015 Cbc With Differential Ord2 HCT 45.1 % 08/01/2015 Cbc With Differential Ord2 MCV 89 fL 08/01/2015 Cbc With Differential Ord2 MCH 28 pg 08/01/2015 Cbc With Differential Ord2 MCHC 32 g/dL 08/01/2015 Cbc With Differential Ord2 PLT 174 K/uL 08/01/2015 Cbc With Differential Ord2 RDW 14.7 % 08/01/2015 Lipid Ord30 CHOL 188 mg/dL 08/01/2015 Lipid Ord30 HDL 39.0 mg/dl 08/01/2015 Lipid Ord30 TRIG 163 mg/dL 08/01/2015 Lipid Ord30 LDL 116 mg/dL 08/01/2015 Lipid Ord30 C/HDL 4.8 Ratio 08/01/2015 B Type Natriuretic Peptide Obp3237 B-METALIZER 13.10 pg/ml 2014 Tsh Ord6 hTSH II 1.79 uIU/mL 08/01/2015 Sed Rate Ord21 ESR 1 mm/hr 08/01/2015 Tsh Ord6 hTSH II 2.43 uIU/mL 07/07/2015 Folate Ord36 Folate 7.62 ng/mL 07/07/2015 B12 Bhk348 B12 228.00 pg/ml 07/07/2015 Review of Systems System Result Effective Dates Constitutional No recent illness 2017 Constitutional No chills 10/07/2017 Constitutional fatigue 10/07/2017 Constitutional No fever 10/07/2017 Constitutional No insomnia 10/07/2017 Constitutional No malaise 10/07/2017 Eyes No blindness 10/07/2017 Eyes No vision change 10/07/2017 Ears/Nose/Throat/Neck No dental pain Ears/Nose/Throat/Neck No dizziness 2017 Ears/Nose/Throat/Neck No dysphagia 2017 Ears/Nose/Throat/Neck No headache 2017 Ears/Nose/Throat/Neck No hearing loss Ears/Nose/Throat/Neck No nasal allergies 10/07/2017 Ears/Nose/Throat/Neck No sore throat Ears/Nose/Throat/Neck No postnasal drip 10/07/2017 Ears/Nose/Throat/Neck No sinus congestion 10/07/2017 Cardiovascular No chest pain/pressure Cardiovascular No dyspnea 10/07/2017 Cardiovascular No edema 10/07/2017 Cardiovascular exercise intolerance 10/07 Cardiovascular fatigue 10/07/2017 Cardiovascular No near-syncope/dizziness 10/07/2017 Respiratory No chest tightness 2017 Respiratory No cough 10/07/2017 Respiratory No dyspnea 10/07/2017 Respiratory No pedal edema 10/07/2017 Gastrointestinal No abdominal pain 2017 Gastrointestinal No constipation 2017 Gastrointestinal No diarrhea 10/07/2017 Gastrointestinal gastroesophageal reflux 10/07/2017 Gastrointestinal No nausea 10/07/2017 Gastrointestinal No vomiting 10/07/2017 Genitourinary/Nephrology No dysuria 10/07 Genitourinary/Nephrology No nocturia Genitourinary/Nephrology No urinary incontinence 10/07/2017 Musculoskeletal No stiffness 10/07/2017 Musculoskeletal No swelling 10/07/2017 Musculoskeletal back pain 10/07/2017 Musculoskeletal No muscle weakness 2017 Musculoskeletal myalgias 10/07/2017 Dermatologic No rash 10/07/2017 Dermatologic No sores 10/07/2017 Dermatologic No scar 10/07/2017 Neurologic No dizziness 10/07/2017 Neurologic No headache 10/07/2017 Neurologic No neck pain 10/07/2017 Neurologic No syncope 10/07/2017 Psychiatric anxiety 10/07/2017 Psychiatric depression 10/07/2017 Musculoskeletal neck pain 10/07/2017 Constitutional No recent illness 2016 Constitutional No chills 06/03/2017 Constitutional fatigue 06/03/2017 Constitutional No fever 06/03/2017 Constitutional No insomnia 06/03/2017 Constitutional No malaise 06/03/2017 Eyes No blindness 06/03/2017 Eyes No vision change 06/03/2017 Ears/Nose/Throat/Neck No dental pain Ears/Nose/Throat/Neck No dizziness 2016 Ears/Nose/Throat/Neck No dysphagia 2016 Ears/Nose/Throat/Neck No headache 2016 Ears/Nose/Throat/Neck No hearing loss Ears/Nose/Throat/Neck No nasal allergies 06/03/2017 Ears/Nose/Throat/Neck No sore throat Ears/Nose/Throat/Neck No postnasal drip 06/03/2017 Ears/Nose/Throat/Neck No sinus congestion 06/03/2017 Cardiovascular No chest pain/pressure Cardiovascular No dyspnea 06/03/2017 Cardiovascular No edema 06/03/2017 Cardiovascular exercise intolerance 06/03 Cardiovascular fatigue 06/03/2017 Cardiovascular No near-syncope/dizziness 06/03/2017 Respiratory No chest tightness 2016 Respiratory No cough 06/03/2017 Respiratory No dyspnea 06/03/2017 Respiratory No pedal edema 06/03/2017 Gastrointestinal No abdominal pain 2016 Gastrointestinal No constipation 2016 Gastrointestinal No diarrhea 06/03/2017 Gastrointestinal gastroesophageal reflux 06/03/2017 Gastrointestinal No nausea 06/03/2017 Gastrointestinal No vomiting 06/03/2017 Genitourinary/Nephrology No dysuria 06/03 Genitourinary/Nephrology No nocturia Genitourinary/Nephrology No urinary incontinence 06/03/2017 Musculoskeletal No stiffness 06/03/2017 Musculoskeletal No swelling 06/03/2017 Musculoskeletal No muscle weakness 2016 Musculoskeletal No myalgias 06/03/2017 Dermatologic No rash 06/03/2017 Dermatologic No sores 06/03/2017 Dermatologic No scar 06/03/2017 Neurologic No dizziness 06/03/2017 Neurologic No headache 06/03/2017 Neurologic No neck pain 06/03/2017 Neurologic No syncope 06/03/2017 Psychiatric anxiety 06/03/2017 Psychiatric depression 06/03/2017 Musculoskeletal back pain 06/03/2017 Constitutional No recent illness 2016 Constitutional No chills 03/19/2017 Constitutional fatigue 03/19/2017 Constitutional No fever 03/19/2017 Constitutional No insomnia 03/19/2017 Constitutional No malaise 03/19/2017 Eyes No blindness 03/19/2017 Eyes No vision change 03/19/2017 Ears/Nose/Throat/Neck No dental pain 07/2017 Ears/Nose/Throat/Neck No dizziness 2016 Ears/Nose/Throat/Neck No dysphagia 2016 Ears/Nose/Throat/Neck No headache 2016 Ears/Nose/Throat/Neck No hearing loss 07/2017 Ears/Nose/Throat/Neck No nasal allergies 03/19/2017 Ears/Nose/Throat/Neck No sore throat 07/2017 Ears/Nose/Throat/Neck No postnasal drip 03/19/2017 Ears/Nose/Throat/Neck No sinus congestion 03/19/2017 Cardiovascular No chest pain/pressure 07/2017 Cardiovascular No dyspnea 03/19/2017 Cardiovascular No edema 03/19/2017 Cardiovascular exercise intolerance 03/19 Cardiovascular fatigue 03/19/2017 Cardiovascular No near-syncope/dizziness 03/19/2017 Respiratory No chest tightness 2016 Respiratory No cough 03/19/2017 Respiratory No dyspnea 03/19/2017 Respiratory No pedal edema 03/19/2017 Gastrointestinal No abdominal pain 2016 Gastrointestinal No constipation 2016 Gastrointestinal No diarrhea 03/19/2017 Gastrointestinal gastroesophageal reflux 03/19/2017 Gastrointestinal No nausea 03/19/2017 Gastrointestinal No vomiting 03/19/2017 Genitourinary/Nephrology No dysuria 03/19 Genitourinary/Nephrology No nocturia 07/2017 Genitourinary/Nephrology No urinary incontinence 03/19/2017 Musculoskeletal No stiffness 03/19/2017 Musculoskeletal No swelling 03/19/2017 Musculoskeletal No muscle weakness 2016 Musculoskeletal No myalgias 03/19/2017 Dermatologic No rash 03/19/2017 Dermatologic No sores 03/19/2017 Dermatologic No scar 03/19/2017 Neurologic No dizziness 03/19/2017 Neurologic No headache 03/19/2017 Neurologic No neck pain 03/19/2017 Neurologic No syncope 03/19/2017 Psychiatric anxiety 03/19/2017 Psychiatric depression 03/19/2017 Musculoskeletal back pain 03/19/2017 Musculoskeletal joint complaint 2016 Constitutional No recent illness 2016 Constitutional No anorexia 01/21/2017 Constitutional No night sweats 2016 Constitutional No chills 01/21/2017 Constitutional No diaphoresis 01/21/2017 Constitutional No fatigue 01/21/2017 Constitutional No fever 01/21/2017 Constitutional No insomnia 01/21/2017 Constitutional No malaise 01/21/2017 Constitutional No weight loss 01/21/2017 Constitutional No weight gain 01/21/2017 Cardiovascular No chest pain/pressure Cardiovascular edema 01/21/2017 Respiratory dyspnea on exertion 2016 Gastrointestinal No abdominal pain 2016 Gastrointestinal No constipation 2016 Gastrointestinal No diarrhea 01/21/2017 Genitourinary/Nephrology No dysuria 01/21 Dermatologic ecchymosis 01/21/2017 Neurologic No alteration of consciousness 01/21/2017 Constitutional No recent illness 2016 Constitutional No chills 12/04/2016 Constitutional fatigue 12/04/2016 Constitutional No fever 12/04/2016 Constitutional No insomnia 12/04/2016 Constitutional No malaise 12/04/2016 Eyes No blindness 12/04/2016 Eyes No vision change 12/04/2016 Ears/Nose/Throat/Neck No dental pain Ears/Nose/Throat/Neck No dizziness 2016 Ears/Nose/Throat/Neck No dysphagia 2016 Ears/Nose/Throat/Neck No headache 2016 Ears/Nose/Throat/Neck No hearing loss Ears/Nose/Throat/Neck No nasal allergies 12/04/2016 Ears/Nose/Throat/Neck No sore throat Ears/Nose/Throat/Neck No postnasal drip 12/04/2016 Ears/Nose/Throat/Neck No sinus congestion 12/04/2016 Cardiovascular No chest pain/pressure Cardiovascular No dyspnea 12/04/2016 Cardiovascular No edema 12/04/2016 Cardiovascular exercise intolerance 12/04 Cardiovascular fatigue 12/04/2016 Cardiovascular No near-syncope/dizziness 12/04/2016 Respiratory No chest tightness 2016 Respiratory No cough 12/04/2016 Respiratory No dyspnea 12/04/2016 Respiratory No pedal edema 12/04/2016 Gastrointestinal No abdominal pain 2016 Gastrointestinal No constipation 2016 Gastrointestinal No diarrhea 12/04/2016 Gastrointestinal gastroesophageal reflux 12/04/2016 Gastrointestinal No nausea 12/04/2016 Gastrointestinal No vomiting 12/04/2016 Genitourinary/Nephrology No dysuria 12/04 Genitourinary/Nephrology No nocturia Genitourinary/Nephrology No urinary incontinence 12/04/2016 Musculoskeletal No stiffness 12/04/2016 Musculoskeletal No swelling 12/04/2016 Musculoskeletal No muscle weakness 2016 Musculoskeletal No myalgias 12/04/2016 Dermatologic No rash 12/04/2016 Dermatologic No sores 12/04/2016 Dermatologic No scar 12/04/2016 Neurologic No dizziness 12/04/2016 Neurologic No headache 12/04/2016 Neurologic No neck pain 12/04/2016 Neurologic No syncope 12/04/2016 Psychiatric anxiety 12/04/2016 Psychiatric depression 12/04/2016 Constitutional No recent illness 2016 Constitutional No chills 11/16/2016 Constitutional No diaphoresis 11/16/2016 Constitutional No fever 11/16/2016 Eyes No eye erythema 11/16/2016 Ears/Nose/Throat/Neck No nasal allergies 11/16/2016 Ears/Nose/Throat/Neck No nasal discharge 11/16/2016 Cardiovascular No chest pain/pressure 06/2017 Cardiovascular No dyspnea 11/16/2016 Respiratory No dyspnea 11/16/2016 Gastrointestinal No abdominal pain 2016 Gastrointestinal No constipation 2016 Gastrointestinal No diarrhea 11/16/2016 Gastrointestinal No nausea 11/16/2016 Gastrointestinal No vomiting 11/16/2016 Musculoskeletal No joint complaint 2016 Dermatologic No rash 11/16/2016 Neurologic No alteration of consciousness 11/16/2016 Neurologic No mental status change 2016 Constitutional No recent illness 2016 Constitutional No chills 11/14/2016 Constitutional fatigue 11/14/2016 Constitutional No fever 11/14/2016 Constitutional No insomnia 11/14/2016 Constitutional No malaise 11/14/2016 Eyes No blindness 11/14/2016 Eyes No vision change 11/14/2016 Ears/Nose/Throat/Neck No dental pain 04/2017 Ears/Nose/Throat/Neck No dizziness 2016 Ears/Nose/Throat/Neck No dysphagia 2016 Ears/Nose/Throat/Neck No headache 2016 Ears/Nose/Throat/Neck No hearing loss 04/2017 Ears/Nose/Throat/Neck No nasal allergies 11/14/2016 Ears/Nose/Throat/Neck No sore throat 04/2017 Ears/Nose/Throat/Neck No postnasal drip 11/14/2016 Ears/Nose/Throat/Neck No sinus congestion 11/14/2016 Cardiovascular No chest pain/pressure 04/2017 Cardiovascular No dyspnea 11/14/2016 Cardiovascular No edema 11/14/2016 Cardiovascular exercise intolerance 11/14 Cardiovascular fatigue 11/14/2016 Cardiovascular No near-syncope/dizziness 11/14/2016 Respiratory No chest tightness 2016 Respiratory No cough 11/14/2016 Respiratory No dyspnea 11/14/2016 Respiratory No pedal edema 11/14/2016 Gastrointestinal No abdominal pain 2016 Gastrointestinal No constipation 2016 Gastrointestinal No diarrhea 11/14/2016 Gastrointestinal gastroesophageal reflux 11/14/2016 Gastrointestinal No nausea 11/14/2016 Gastrointestinal No vomiting 11/14/2016 Genitourinary/Nephrology No dysuria 11/14 Genitourinary/Nephrology No nocturia 04/2017 Genitourinary/Nephrology No urinary incontinence 11/14/2016 Musculoskeletal No stiffness 11/14/2016 Musculoskeletal No swelling 11/14/2016 Musculoskeletal No muscle weakness 2016 Musculoskeletal No myalgias 11/14/2016 Dermatologic No rash 11/14/2016 Dermatologic No sores 11/14/2016 Dermatologic No scar 11/14/2016 Neurologic No dizziness 11/14/2016 Neurologic No headache 11/14/2016 Neurologic No neck pain 11/14/2016 Neurologic No syncope 11/14/2016 Psychiatric anxiety 11/14/2016 Psychiatric depression 11/14/2016 Constitutional recent illness 09/17/2016 Constitutional chills 09/17/2016 Constitutional No diaphoresis 09/17/2016 Constitutional fever 09/17/2016 Eyes No eye erythema 09/17/2016 Ears/Nose/Throat/Neck nasal allergies 05/2017 Ears/Nose/Throat/Neck nasal discharge 05/2017 Ears/Nose/Throat/Neck postnasal drip 05/2017 Ears/Nose/Throat/Neck sore throat 2016 Cardiovascular No chest pain/pressure 05/2017 Cardiovascular No dyspnea 09/17/2016 Respiratory chest congestion 09/17/2016 Respiratory cough 09/17/2016 Gastrointestinal No constipation 2016 Gastrointestinal No diarrhea 09/17/2016 Gastrointestinal No nausea 09/17/2016 Gastrointestinal No vomiting 09/17/2016 Dermatologic No rash 09/17/2016 Neurologic No alteration of consciousness 09/17/2016 Neurologic No mental status change 2016 Respiratory productive sputum 09/17/2016 Constitutional No recent illness 2015 Constitutional No chills 08/03/2016 Constitutional No fever 08/03/2016 Eyes No eye erythema 08/03/2016 Ears/Nose/Throat/Neck No nasal discharge 08/03/2016 Cardiovascular No chest pain/pressure Cardiovascular No dyspnea 08/03/2016 Respiratory No cough 08/03/2016 Respiratory No dyspnea 08/03/2016 Musculoskeletal joint complaint 2015 Neurologic No alteration of consciousness 08/03/2016 Neurologic No mental status change 2015 Dermatologic ecchymosis 08/03/2016 Constitutional No recent illness 2015 Constitutional No chills 07/25/2016 Constitutional fatigue 07/25/2016 Constitutional No fever 07/25/2016 Constitutional No insomnia 07/25/2016 Constitutional No malaise 07/25/2016 Eyes No blindness 07/25/2016 Eyes No vision change 07/25/2016 Ears/Nose/Throat/Neck No dental pain Ears/Nose/Throat/Neck No dizziness 2015 Ears/Nose/Throat/Neck No dysphagia 2015 Ears/Nose/Throat/Neck No headache 2015 Ears/Nose/Throat/Neck No hearing loss Ears/Nose/Throat/Neck No nasal allergies 07/25/2016 Ears/Nose/Throat/Neck No sore throat Ears/Nose/Throat/Neck No postnasal drip 07/25/2016 Ears/Nose/Throat/Neck No sinus congestion 07/25/2016 Cardiovascular No chest pain/pressure Cardiovascular No dyspnea 07/25/2016 Cardiovascular No edema 07/25/2016 Cardiovascular exercise intolerance 07/25 Cardiovascular fatigue 07/25/2016 Cardiovascular No near-syncope/dizziness 07/25/2016 Respiratory No chest tightness 2015 Respiratory No cough 07/25/2016 Respiratory No dyspnea 07/25/2016 Respiratory No pedal edema 07/25/2016 Gastrointestinal No abdominal pain 2015 Gastrointestinal No constipation 2015 Gastrointestinal No diarrhea 07/25/2016 Gastrointestinal gastroesophageal reflux 07/25/2016 Gastrointestinal No nausea 07/25/2016 Gastrointestinal No vomiting 07/25/2016 Genitourinary/Nephrology No dysuria 07/25 Genitourinary/Nephrology No nocturia Genitourinary/Nephrology No urinary incontinence 07/25/2016 Musculoskeletal No stiffness 07/25/2016 Musculoskeletal No swelling 07/25/2016 Musculoskeletal No muscle weakness 2015 Musculoskeletal No myalgias 07/25/2016 Dermatologic No rash 07/25/2016 Dermatologic No sores 07/25/2016 Dermatologic No scar 07/25/2016 Neurologic No dizziness 07/25/2016 Neurologic No headache 07/25/2016 Neurologic No neck pain 07/25/2016 Neurologic No syncope 07/25/2016 Psychiatric No anxiety 07/25/2016 Psychiatric depression 07/25/2016 Constitutional No recent illness 2015 Constitutional No chills 03/22/2016 Constitutional fatigue 03/22/2016 Constitutional No fever 03/22/2016 Constitutional No insomnia 03/22/2016 Constitutional No malaise 03/22/2016 Eyes No blindness 03/22/2016 Eyes No vision change 03/22/2016 Ears/Nose/Throat/Neck No dental pain Ears/Nose/Throat/Neck No dizziness 2015 Ears/Nose/Throat/Neck No dysphagia 2015 Ears/Nose/Throat/Neck No headache 2015 Ears/Nose/Throat/Neck No hearing loss Ears/Nose/Throat/Neck No nasal allergies 03/22/2016 Ears/Nose/Throat/Neck No sore throat Ears/Nose/Throat/Neck No postnasal drip 03/22/2016 Ears/Nose/Throat/Neck No sinus congestion 03/22/2016 Cardiovascular No chest pain/pressure Cardiovascular No dyspnea 03/22/2016 Cardiovascular No edema 03/22/2016 Cardiovascular exercise intolerance 03/22 Cardiovascular fatigue 03/22/2016 Cardiovascular No near-syncope/dizziness 03/22/2016 Respiratory No chest tightness 2015 Respiratory No cough 03/22/2016 Respiratory No dyspnea 03/22/2016 Respiratory No pedal edema 03/22/2016 Gastrointestinal No abdominal pain 2015 Gastrointestinal No constipation 2015 Gastrointestinal No diarrhea 03/22/2016 Gastrointestinal gastroesophageal reflux 03/22/2016 Gastrointestinal No nausea 03/22/2016 Gastrointestinal No vomiting 03/22/2016 Genitourinary/Nephrology No dysuria 03/22 Genitourinary/Nephrology No nocturia Genitourinary/Nephrology No urinary incontinence 03/22/2016 Musculoskeletal No stiffness 03/22/2016 Musculoskeletal No swelling 03/22/2016 Musculoskeletal No muscle weakness 2015 Musculoskeletal No myalgias 03/22/2016 Dermatologic No rash 03/22/2016 Dermatologic No sores 03/22/2016 Dermatologic No scar 03/22/2016 Neurologic No dizziness 03/22/2016 Neurologic No headache 03/22/2016 Neurologic No neck pain 03/22/2016 Neurologic No syncope 03/22/2016 Psychiatric No anxiety 03/22/2016 Psychiatric depression 03/22/2016 Constitutional No recent illness 2015 Constitutional No chills 01/12/2016 Constitutional fatigue 01/12/2016 Constitutional No fever 01/12/2016 Constitutional No insomnia 01/12/2016 Constitutional No malaise 01/12/2016 Eyes No blindness 01/12/2016 Eyes No vision change 01/12/2016 Ears/Nose/Throat/Neck No dental pain 01/2016 Ears/Nose/Throat/Neck No dizziness 2015 Ears/Nose/Throat/Neck No dysphagia 2015 Ears/Nose/Throat/Neck No headache 2015 Ears/Nose/Throat/Neck No hearing loss 01/2016 Ears/Nose/Throat/Neck No nasal allergies 01/12/2016 Ears/Nose/Throat/Neck No sore throat 01/2016 Ears/Nose/Throat/Neck No postnasal drip 01/12/2016 Ears/Nose/Throat/Neck No sinus congestion 01/12/2016 Cardiovascular No chest pain/pressure 01/2016 Cardiovascular No dyspnea 01/12/2016 Cardiovascular No edema 01/12/2016 Cardiovascular exercise intolerance 01/11 Cardiovascular fatigue 01/12/2016 Cardiovascular No near-syncope/dizziness 01/12/2016 Respiratory No chest tightness 2015 Respiratory No cough 01/12/2016 Respiratory No dyspnea 01/12/2016 Respiratory No pedal edema 01/12/2016 Gastrointestinal No abdominal pain 2015 Gastrointestinal No constipation 2015 Gastrointestinal No diarrhea 01/12/2016 Gastrointestinal gastroesophageal reflux 01/12/2016 Gastrointestinal No nausea 01/12/2016 Gastrointestinal No vomiting 01/12/2016 Genitourinary/Nephrology No dysuria 01/11 Genitourinary/Nephrology No nocturia 01/2016 Genitourinary/Nephrology No urinary incontinence 01/12/2016 Musculoskeletal No stiffness 01/12/2016 Musculoskeletal No swelling 01/12/2016 Musculoskeletal No muscle weakness 2015 Musculoskeletal No myalgias 01/12/2016 Dermatologic No rash 01/12/2016 Dermatologic No sores 01/12/2016 Dermatologic No scar 01/12/2016 Neurologic No dizziness 01/12/2016 Neurologic No headache 01/12/2016 Neurologic No neck pain 01/12/2016 Neurologic No syncope 01/12/2016 Psychiatric No anxiety 01/12/2016 Psychiatric depression 01/12/2016 Constitutional No recent illness 2015 Constitutional No chills 10/13/2015 Constitutional fatigue 10/13/2015 Constitutional No fever 10/13/2015 Constitutional No insomnia 10/13/2015 Constitutional No malaise 10/13/2015 Eyes No blindness 10/13/2015 Eyes No vision change 10/13/2015 Ears/Nose/Throat/Neck No dental pain 12/2015 Ears/Nose/Throat/Neck No dizziness 2015 Ears/Nose/Throat/Neck No dysphagia 2015 Ears/Nose/Throat/Neck No headache 2015 Ears/Nose/Throat/Neck No hearing loss 12/2015 Ears/Nose/Throat/Neck No nasal allergies 10/13/2015 Ears/Nose/Throat/Neck No sore throat 12/2015 Ears/Nose/Throat/Neck No postnasal drip 10/13/2015 Ears/Nose/Throat/Neck No sinus congestion 10/13/2015 Cardiovascular No chest pain/pressure 12/2015 Cardiovascular No dyspnea 10/13/2015 Cardiovascular No edema 10/13/2015 Cardiovascular exercise intolerance 10/13 Cardiovascular fatigue 10/13/2015 Cardiovascular No near-syncope/dizziness 10/13/2015 Respiratory No chest tightness 2015 Respiratory No cough 10/13/2015 Respiratory No dyspnea 10/13/2015 Respiratory No pedal edema 10/13/2015 Gastrointestinal No abdominal pain 2015 Gastrointestinal No constipation 2015 Gastrointestinal No diarrhea 10/13/2015 Gastrointestinal gastroesophageal reflux 10/13/2015 Gastrointestinal No nausea 10/13/2015 Gastrointestinal No vomiting 10/13/2015 Genitourinary/Nephrology No dysuria 10/13 Genitourinary/Nephrology No nocturia 12/2015 Genitourinary/Nephrology No urinary incontinence 10/13/2015 Musculoskeletal No stiffness 10/13/2015 Musculoskeletal No swelling 10/13/2015 Musculoskeletal No muscle weakness 2015 Musculoskeletal No myalgias 10/13/2015 Dermatologic No rash 10/13/2015 Dermatologic No sores 10/13/2015 Dermatologic No scar 10/13/2015 Neurologic No dizziness 10/13/2015 Neurologic No headache 10/13/2015 Neurologic No neck pain 10/13/2015 Neurologic No syncope 10/13/2015 Psychiatric No anxiety 10/13/2015 Psychiatric No depression 10/13/2015 Constitutional No recent illness 2015 Constitutional No chills 09/13/2015 Constitutional fatigue 09/13/2015 Constitutional No fever 09/13/2015 Constitutional No insomnia 09/13/2015 Constitutional No malaise 09/13/2015 Eyes No blindness 09/13/2015 Eyes No vision change 09/13/2015 Ears/Nose/Throat/Neck No dental pain 01/2016 Ears/Nose/Throat/Neck No dizziness 2015 Ears/Nose/Throat/Neck No dysphagia 2015 Ears/Nose/Throat/Neck No headache 2015 Ears/Nose/Throat/Neck No hearing loss 01/2016 Ears/Nose/Throat/Neck No nasal allergies 09/13/2015 Ears/Nose/Throat/Neck No sore throat 01/2016 Ears/Nose/Throat/Neck No postnasal drip 09/13/2015 Ears/Nose/Throat/Neck No sinus congestion 09/13/2015 Cardiovascular No chest pain/pressure 01/2016 Cardiovascular No dyspnea 09/13/2015 Cardiovascular No edema 09/13/2015 Cardiovascular exercise intolerance 09/13 Cardiovascular fatigue 09/13/2015 Cardiovascular No near-syncope/dizziness 09/13/2015 Respiratory No chest tightness 2015 Respiratory No cough 09/13/2015 Respiratory No dyspnea 09/13/2015 Respiratory No pedal edema 09/13/2015 Gastrointestinal No abdominal pain 2015 Gastrointestinal No constipation 2015 Gastrointestinal No diarrhea 09/13/2015 Gastrointestinal gastroesophageal reflux 09/13/2015 Gastrointestinal No nausea 09/13/2015 Gastrointestinal No vomiting 09/13/2015 Genitourinary/Nephrology No dysuria 09/13 Genitourinary/Nephrology No nocturia 01/2016 Genitourinary/Nephrology No urinary incontinence 09/13/2015 Musculoskeletal No stiffness 09/13/2015 Musculoskeletal No swelling 09/13/2015 Musculoskeletal No muscle weakness 2015 Musculoskeletal No myalgias 09/13/2015 Dermatologic No rash 09/13/2015 Dermatologic No sores 09/13/2015 Dermatologic No scar 09/13/2015 Neurologic No dizziness 09/13/2015 Neurologic No headache 09/13/2015 Neurologic No neck pain 09/13/2015 Neurologic No syncope 09/13/2015 Psychiatric No anxiety 09/13/2015 Psychiatric No depression 09/13/2015 Constitutional No recent illness 2014 Constitutional No chills 07/05/2015 Constitutional fatigue 07/05/2015 Constitutional No fever 07/05/2015 Constitutional No insomnia 07/05/2015 Constitutional No malaise 07/05/2015 Eyes No blindness 07/05/2015 Eyes No vision change 07/05/2015 Ears/Nose/Throat/Neck No dental pain Ears/Nose/Throat/Neck No dizziness 2014 Ears/Nose/Throat/Neck No dysphagia 2014 Ears/Nose/Throat/Neck No headache 2014 Ears/Nose/Throat/Neck No hearing loss Ears/Nose/Throat/Neck No nasal allergies 07/05/2015 Ears/Nose/Throat/Neck No sore throat Ears/Nose/Throat/Neck No postnasal drip 07/05/2015 Ears/Nose/Throat/Neck No sinus congestion 07/05/2015 Cardiovascular No chest pain/pressure Cardiovascular No dyspnea 07/05/2015 Cardiovascular No edema 07/05/2015 Cardiovascular No exercise intolerance Cardiovascular No fatigue 07/05/2015 Cardiovascular No near-syncope/dizziness 07/05/2015 Respiratory No chest tightness 2014 Respiratory No cough 07/05/2015 Respiratory No dyspnea 07/05/2015 Respiratory No pedal edema 07/05/2015 Gastrointestinal No abdominal pain 2014 Gastrointestinal No constipation 2014 Gastrointestinal No diarrhea 07/05/2015 Gastrointestinal No gastroesophageal reflux 07/05/2015 Gastrointestinal No nausea 07/05/2015 Gastrointestinal No vomiting 07/05/2015 Genitourinary/Nephrology No dysuria 07/05 Genitourinary/Nephrology No nocturia Genitourinary/Nephrology No urinary incontinence 07/05/2015 Musculoskeletal No stiffness 07/05/2015 Musculoskeletal No swelling 07/05/2015 Musculoskeletal No muscle weakness 2014 Musculoskeletal No myalgias 07/05/2015 Dermatologic No rash 07/05/2015 Dermatologic No sores 07/05/2015 Dermatologic No scar 07/05/2015 Neurologic No dizziness 07/05/2015 Neurologic No headache 07/05/2015 Neurologic No neck pain 07/05/2015 Neurologic No syncope 07/05/2015 Psychiatric No anxiety 07/05/2015 Psychiatric No depression 07/05/2015 Physical Exam Exam Name System Name Item Name Status Result Effective Dates Notes Full Exam - General 1994 Constitutional general appearance Development: well developed 10/07/2017 None Full Exam - General 1994 Constitutional general appearance Development: appears stated age 0110/07/2017 None Full Exam - General 1994 Constitutional general appearance Hygiene/Attention to Grooming: good hygiene 10/07/2017 None Full Exam - General 1994 Eyes conjunctiva /eyelids Overall: conjunctiva clear 10/07/2017 None Full Exam - General 1994 Eyes conjunctiva /eyelids Overall: cornea clear 10/07/2017 None Full Exam - General 1994 Eyes conjunctiva /eyelids Overall: eyelids normal 10/07/2017 None Full Exam - General 1994 Eyes pupils and irises Overall: pupils equal, round, reactive to light and accomodation 10/07/2017 None Full Exam - General 1994 Ears/Nose/Throat otoscopic exam Overall: external auditory canals clear 10/07/2017 None Full Exam - General 1994 Ears/Nose/Throat otoscopic exam Overall: tympanic membranes clear 10/07/2017 None Full Exam - General 1994 Ears/Nose/Throat lips/teeth/gingiva Overall: benign lips 10/07/2017 None Full Exam - General 1994 Ears/Nose/Throat lips/teeth/gingiva Overall: normal dentition 10/07/2017 None Full Exam - General 1994 Ears/Nose/Throat oral cavity/pharynx/larynx Overall: oral mucosa clear 10/07/2017 None Full Exam - General 1994 Ears/Nose/Throat oral cavity/pharynx/larynx Overall: oropharyngeal mucosa clear 10/07/2017 None Full Exam - General 1994 Ears/Nose/Throat oral cavity/pharynx/larynx Overall: hypopharynx benign 10/07/2017 None Full Exam - General 1994 Ears/Nose/Throat oral cavity/pharynx/larynx Overall: no masses 10/07/2017 None Full Exam - General 1994 Respiratory auscultation Overall: breath sounds clear bilaterally 10/07/2017 None Full Exam - General 1994 Respiratory respiratory effort/rhythm Overall: no retractions 10/07/2017 None Full Exam - General 1994 Respiratory respiratory effort/rhythm Overall: normal rate 10/07/2017 None Full Exam - General 1994 Cardiovascular extremities Overall: no clubbing 10/07/2017 None Full Exam - General 1994 Cardiovascular auscultation of heart Overall: regular rate 10/07/2017 None Full Exam - General 1994 Cardiovascular auscultation of heart Overall: normal heart sounds 10/07/2017 None Full Exam - General 1994 Abdomen abdominal exam Overall: no tenderness 10/07/2017 None Full Exam - General 1994 Abdomen abdominal exam Overall: normal bowel sounds 10/07/2017 None Full Exam - General 1994 Musculoskeletal spine, ribs and pelvis Overall: good posture 10/07/2017 None Full Exam - General 1994 Musculoskeletal head and neck Overall: head atraumatic 10/07/2017 None Full Exam - General 1994 Psychiatric orientation/consciousness Overall: oriented to person, place and time 10/07/2017 None Full Exam - General 1994 Psychiatric mood and affect Overall: normal mood and affect 10/07/2017 None Full Exam - General 1994 Musculoskeletal head and neck Cervical Spine: decreased flexion 10/07/2017 None Full Exam - General 1994 Musculoskeletal head and neck Cervical Spine: decreased extension 10/07/2017 None Full Exam - General 1994 Musculoskeletal head and neck Cervical Spine: decreased rotation 10/07/2017 None Full Exam - General 1994 Musculoskeletal head and neck Cervical Spine: decreased left lateral bending 10/07/2017 None Full Exam - General 1994 Musculoskeletal head and neck Cervical Spine: decreased right lateral bending 10/07/2017 None Full Exam - General 1994 Constitutional general appearance Development: well developed 06/03/2017 None Full Exam - General 1994 Constitutional general appearance Development: appears stated age 0906/03/2017 None Full Exam - General 1994 Constitutional general appearance Hygiene/Attention to Grooming: good hygiene 06/03/2017 None Full Exam - General 1994 Eyes conjunctiva /eyelids Overall: conjunctiva clear 06/03/2017 None Full Exam - General 1994 Eyes conjunctiva /eyelids Overall: cornea clear 06/03/2017 None Full Exam - General 1994 Eyes conjunctiva /eyelids Overall: eyelids normal 06/03/2017 None Full Exam - General 1994 Eyes pupils and irises Overall: pupils equal, round, reactive to light and accomodation 06/03/2017 None Full Exam - General 1994 Ears/Nose/Throat otoscopic exam Overall: external auditory canals clear 06/03/2017 None Full Exam - General 1994 Ears/Nose/Throat otoscopic exam Overall: tympanic membranes clear 06/03/2017 None Full Exam - General 1994 Ears/Nose/Throat lips/teeth/gingiva Overall: benign lips 06/03/2017 None Full Exam - General 1994 Ears/Nose/Throat lips/teeth/gingiva Overall: normal dentition 06/03/2017 None Full Exam - General 1994 Ears/Nose/Throat oral cavity/pharynx/larynx Overall: oral mucosa clear 06/03/2017 None Full Exam - General 1994 Ears/Nose/Throat oral cavity/pharynx/larynx Overall: oropharyngeal mucosa clear 06/03/2017 None Full Exam - General 1994 Ears/Nose/Throat oral cavity/pharynx/larynx Overall: hypopharynx benign 06/03/2017 None Full Exam - General 1994 Ears/Nose/Throat oral cavity/pharynx/larynx Overall: no masses 06/03/2017 None Full Exam - General 1994 Respiratory auscultation Overall: breath sounds clear bilaterally 06/03/2017 None Full Exam - General 1994 Respiratory respiratory effort/rhythm Overall: no retractions 06/03/2017 None Full Exam - General 1994 Respiratory respiratory effort/rhythm Overall: normal rate 06/03/2017 None Full Exam - General 1994 Cardiovascular extremities Overall: no clubbing 06/03/2017 None Full Exam - General 1994 Cardiovascular auscultation of heart Overall: regular rate 06/03/2017 None Full Exam - General 1994 Cardiovascular auscultation of heart Overall: normal heart sounds 06/03/2017 None Full Exam - General 1994 Abdomen abdominal exam Overall: no tenderness 06/03/2017 None Full Exam - General 1994 Abdomen abdominal exam Overall: normal bowel sounds 06/03/2017 None Full Exam - General 1994 Musculoskeletal spine, ribs and pelvis Overall: good posture 06/03/2017 None Full Exam - General 1994 Musculoskeletal head and neck Overall: head atraumatic 06/03/2017 None Full Exam - General 1994 Musculoskeletal head and neck Overall: cervical spine benign 06/03/2017 None Full Exam - General 1994 Neurologic deep tendon reflexes Overall: deep tendon reflexes intact 06/03/2017 None Full Exam - General 1994 Neurologic cranial nerves Overall: crainial nerves 2 - 12 grossly intact 06/03/2017 None Full Exam - General 1994 Psychiatric orientation/consciousness Overall: oriented to person, place and time 06/03/2017 None Full Exam - General 1994 Psychiatric mood and affect Overall: normal mood and affect 06/03/2017 None Full Exam - General 1994 Constitutional general appearance Development: well developed 03/19/2017 None Full Exam - General 1994 Constitutional general appearance Development: appears stated age 0703/19/2017 None Full Exam - General 1994 Constitutional general appearance Hygiene/Attention to Grooming: good hygiene 03/19/2017 None Full Exam - General 1994 Eyes conjunctiva /eyelids Overall: conjunctiva clear 03/19/2017 None Full Exam - General 1994 Eyes conjunctiva /eyelids Overall: cornea clear 03/19/2017 None Full Exam - General 1994 Eyes conjunctiva /eyelids Overall: eyelids normal 03/19/2017 None Full Exam - General 1994 Eyes pupils and irises Overall: pupils equal, round, reactive to light and accomodation 03/19/2017 None Full Exam - General 1994 Ears/Nose/Throat otoscopic exam Overall: external auditory canals clear 03/19/2017 None Full Exam - General 1994 Ears/Nose/Throat otoscopic exam Overall: tympanic membranes clear 03/19/2017 None Full Exam - General 1994 Ears/Nose/Throat lips/teeth/gingiva Overall: benign lips 03/19/2017 None Full Exam - General 1994 Ears/Nose/Throat lips/teeth/gingiva Overall: normal dentition 03/19/2017 None Full Exam - General 1994 Ears/Nose/Throat oral cavity/pharynx/larynx Overall: oral mucosa clear 03/19/2017 None Full Exam - General 1994 Ears/Nose/Throat oral cavity/pharynx/larynx Overall: oropharyngeal mucosa clear 03/19/2017 None Full Exam - General 1994 Ears/Nose/Throat oral cavity/pharynx/larynx Overall: hypopharynx benign 03/19/2017 None Full Exam - General 1994 Ears/Nose/Throat oral cavity/pharynx/larynx Overall: no masses 03/19/2017 None Full Exam - General 1994 Respiratory auscultation Overall: breath sounds clear bilaterally 03/19/2017 None Full Exam - General 1994 Respiratory respiratory effort/rhythm Overall: no retractions 03/19/2017 None Full Exam - General 1994 Respiratory respiratory effort/rhythm Overall: normal rate 03/19/2017 None Full Exam - General 1994 Cardiovascular extremities Overall: no clubbing 03/19/2017 None Full Exam - General 1994 Cardiovascular auscultation of heart Overall: regular rate 03/19/2017 None Full Exam - General 1994 Cardiovascular auscultation of heart Overall: normal heart sounds 03/19/2017 None Full Exam - General 1994 Abdomen abdominal exam Overall: no tenderness 03/19/2017 None Full Exam - General 1994 Abdomen abdominal exam Overall: normal bowel sounds 03/19/2017 None Full Exam - General 1994 Musculoskeletal spine, ribs and pelvis Overall: good posture 03/19/2017 None Full Exam - General 1994 Musculoskeletal head and neck Overall: head atraumatic 03/19/2017 None Full Exam - General 1994 Musculoskeletal head and neck Overall: cervical spine benign 03/19/2017 None Full Exam - General 1994 Neurologic deep tendon reflexes Overall: deep tendon reflexes intact 03/19/2017 None Full Exam - General 1994 Neurologic cranial nerves Overall: crainial nerves 2 - 12 grossly intact 03/19/2017 None Full Exam - General 1994 Psychiatric orientation/consciousness Overall: oriented to person, place and time 03/19/2017 None Full Exam - General 1994 Psychiatric mood and affect Overall: normal mood and affect 03/19/2017 None Full Exam - General 1994 Constitutional general appearance Overall: well developed 01/21/2017 None Full Exam - General 1994 Constitutional general appearance Overall: in no acute distress 01/21/2017 None Full Exam - General 1994 Constitutional general appearance Overall: well nourished 01/21/2017 None Full Exam - General 1994 Respiratory auscultation Overall: breath sounds clear bilaterally 01/21/2017 None Full Exam - General 1994 Respiratory respiratory effort/rhythm Overall: no retractions 01/21/2017 None Full Exam - General 1994 Respiratory respiratory effort/rhythm Overall: normal rate 01/21/2017 None Full Exam - General 1994 Cardiovascular auscultation of heart Overall: regular rate 01/21/2017 None Full Exam - General 1994 Cardiovascular auscultation of heart Overall: normal heart sounds 01/21/2017 None Full Exam - General 1994 Cardiovascular auscultation of heart Overall: no murmurs 01/21/2017 None Full Exam - General 1994 Cardiovascular extremities Edema present: pitting 01/21/2017 None Full Exam - General 1994 Cardiovascular extremities Edema present: severity 1+ - 4 +: 1-2+ 01/21/2017 R>L Full Exam - General 1994 Psychiatric orientation/consciousness Overall: oriented to person, place and time 01/21/2017 None Full Exam - General 1994 Neurologic cranial nerves Overall: crainial nerves 2 - 12 grossly intact 01/21/2017 None Full Exam - General 1994 Integument inspection of skin Location: right leg 01/21/2017 hematoma right anterior benites Full Exam - General 1994 Constitutional general appearance Development: well developed 12/04/2016 None Full Exam - General 1994 Constitutional general appearance Development: appears stated age 0312/04/2016 None Full Exam - General 1994 Constitutional general appearance Hygiene/Attention to Grooming: good hygiene 12/04/2016 None Full Exam - General 1994 Eyes conjunctiva /eyelids Overall: conjunctiva clear 12/04/2016 None Full Exam - General 1994 Eyes conjunctiva /eyelids Overall: cornea clear 12/04/2016 None Full Exam - General 1994 Eyes conjunctiva /eyelids Overall: eyelids normal 12/04/2016 None Full Exam - General 1994 Eyes pupils and irises Overall: pupils equal, round, reactive to light and accomodation 12/04/2016 None Full Exam - General 1994 Ears/Nose/Throat otoscopic exam Overall: external auditory canals clear 12/04/2016 None Full Exam - General 1994 Ears/Nose/Throat otoscopic exam Overall: tympanic membranes clear 12/04/2016 None Full Exam - General 1994 Ears/Nose/Throat lips/teeth/gingiva Overall: benign lips 12/04/2016 None Full Exam - General 1994 Ears/Nose/Throat lips/teeth/gingiva Overall: normal dentition 12/04/2016 None Full Exam - General 1995 Ears/Nose/Throat oral cavity/pharynx/larynx Overall: oral mucosa clear 12/04/2016 None Full Exam - General 1994 Ears/Nose/Throat oral cavity/pharynx/larynx Overall: oropharyngeal mucosa clear 12/04/2016 None Full Exam - General 1994 Ears/Nose/Throat oral cavity/pharynx/larynx Overall: hypopharynx benign 12/04/2016 None Full Exam - General 1994 Ears/Nose/Throat oral cavity/pharynx/larynx Overall: no masses 12/04/2016 None Full Exam - General 1994 Respiratory auscultation Overall: breath sounds clear bilaterally 12/04/2016 None Full Exam - General 1994 Respiratory respiratory effort/rhythm Overall: no retractions 12/04/2016 None Full Exam - General 1994 Respiratory respiratory effort/rhythm Overall: normal rate 12/04/2016 None Full Exam - General 1994 Cardiovascular extremities Overall: no clubbing 12/04/2016 None Full Exam - General 1994 Cardiovascular auscultation of heart Overall: regular rate 12/04/2016 None Full Exam - General 1994 Cardiovascular auscultation of heart Overall: normal heart sounds 12/04/2016 None Full Exam - General 1994 Abdomen abdominal exam Overall: no tenderness 12/04/2016 None Full Exam - General 1994 Abdomen abdominal exam Overall: normal bowel sounds 12/04/2016 None Full Exam - General 1994 Musculoskeletal spine, ribs and pelvis Overall: good posture 12/04/2016 None Full Exam - General 1994 Musculoskeletal head and neck Overall: head atraumatic 12/04/2016 None Full Exam - General 1994 Musculoskeletal head and neck Overall: cervical spine benign 12/04/2016 None Full Exam - General 1994 Psychiatric orientation/consciousness Overall: oriented to person, place and time 12/04/2016 None Full Exam - General 1994 Psychiatric mood and affect Overall: normal mood and affect 12/04/2016 None Full Exam - General 1994 Neurologic cranial nerves Overall: crainial nerves 2 - 12 grossly intact 12/04/2016 None Full Exam - General 1994 Neurologic deep tendon reflexes Overall: deep tendon reflexes intact 12/04/2016 None Full Exam - General 1994 Constitutional general appearance Overall: well developed 11/16/2016 None Full Exam - General 1994 Constitutional general appearance Overall: in no acute distress 11/16/2016 None Full Exam - General 1994 Constitutional general appearance Overall: well nourished 11/16/2016 None Full Exam - General 1994 Eyes conjunctiva /eyelids Overall: conjunctiva clear 11/16/2016 None Full Exam - General 1994 Eyes conjunctiva /eyelids Overall: eyelids normal 11/16/2016 None Full Exam - General 1994 Ears/Nose/Throat lips/teeth/gingiva Overall: benign lips 11/16/2016 None Full Exam - General 1994 Ears/Nose/Throat oral cavity/pharynx/larynx Overall: oral mucosa clear 11/16/2016 None Full Exam - General 1994 Respiratory auscultation Overall: breath sounds clear bilaterally 11/16/2016 None Full Exam - General 1994 Respiratory respiratory effort/rhythm Overall: no retractions 11/16/2016 None Full Exam - General 1994 Respiratory respiratory effort/rhythm Overall: normal rate 11/16/2016 None Full Exam - General 1994 Cardiovascular extremities Overall: no clubbing 11/16/2016 None Full Exam - General 1994 Cardiovascular auscultation of heart Overall: regular rate 11/16/2016 None Full Exam - General 1994 Cardiovascular auscultation of heart Overall: normal heart sounds 11/16/2016 None Full Exam - General 1994 Musculoskeletal head and neck Overall: head atraumatic 11/16/2016 None Full Exam - General 1994 Psychiatric orientation/consciousness Overall: oriented to person, place and time 11/16/2016 None Full Exam - General 1994 Psychiatric mood and affect Overall: normal mood and affect 11/16/2016 None Full Exam - General 1994 Psychiatric appearance Overall: well-groomed, good eye contact 11/16/2016 None Full Exam - General 1994 Constitutional general appearance Development: well developed 11/14/2016 None Full Exam - General 1994 Constitutional general appearance Development: appears stated age 0311/14/2016 None Full Exam - General 1994 Constitutional general appearance Hygiene/Attention to Grooming: good hygiene 11/14/2016 None Full Exam - General 1994 Eyes conjunctiva /eyelids Overall: conjunctiva clear 11/14/2016 None Full Exam - General 1994 Eyes conjunctiva /eyelids Overall: cornea clear 11/14/2016 None Full Exam - General 1994 Eyes conjunctiva /eyelids Overall: eyelids normal 11/14/2016 None Full Exam - General 1994 Eyes pupils and irises Overall: pupils equal, round, reactive to light and accomodation 11/14/2016 None Full Exam - General 1994 Ears/Nose/Throat otoscopic exam Overall: external auditory canals clear 11/14/2016 None Full Exam - General 1994 Ears/Nose/Throat otoscopic exam Overall: tympanic membranes clear 11/14/2016 None Full Exam - General 1994 Ears/Nose/Throat lips/teeth/gingiva Overall: benign lips 11/14/2016 None Full Exam - General 1994 Ears/Nose/Throat lips/teeth/gingiva Overall: normal dentition 11/14/2016 None Full Exam - General 1994 Ears/Nose/Throat oral cavity/pharynx/larynx Overall: oral mucosa clear 11/14/2016 None Full Exam - General 1994 Ears/Nose/Throat oral cavity/pharynx/larynx Overall: oropharyngeal mucosa clear 11/14/2016 None Full Exam - General 1994 Ears/Nose/Throat oral cavity/pharynx/larynx Overall: hypopharynx benign 11/14/2016 None Full Exam - General 1994 Ears/Nose/Throat oral cavity/pharynx/larynx Overall: no masses 11/14/2016 None Full Exam - General 1994 Respiratory auscultation Overall: breath sounds clear bilaterally 11/14/2016 None Full Exam - General 1994 Respiratory respiratory effort/rhythm Overall: no retractions 11/14/2016 None Full Exam - General 1994 Respiratory respiratory effort/rhythm Overall: normal rate 11/14/2016 None Full Exam - General 1994 Cardiovascular extremities Overall: no clubbing 11/14/2016 None Full Exam - General 1994 Cardiovascular auscultation of heart Overall: regular rate 11/14/2016 None Full Exam - General 1994 Cardiovascular auscultation of heart Overall: normal heart sounds 11/14/2016 None Full Exam - General 1994 Abdomen abdominal exam Overall: no tenderness 11/14/2016 None Full Exam - General 1994 Abdomen abdominal exam Overall: normal bowel sounds 11/14/2016 None Full Exam - General 1994 Musculoskeletal spine, ribs and pelvis Overall: good posture 11/14/2016 None Full Exam - General 1994 Musculoskeletal head and neck Overall: head atraumatic 11/14/2016 None Full Exam - General 1994 Musculoskeletal head and neck Overall: cervical spine benign 11/14/2016 None Full Exam - General 1994 Psychiatric orientation/consciousness Overall: oriented to person, place and time 11/14/2016 None Full Exam - General 1994 Psychiatric mood and affect Overall: normal mood and affect 11/14/2016 None Full Exam - ENT Constitutional general appearance Overall: well nourished 09/17/2016 None Full Exam - ENT Constitutional general appearance Overall: well developed 09/17/2016 None Full Exam - ENT Constitutional general appearance Overall: in no acute distress 09/17/2016 None Full Exam - ENT Ears/Nose/Throat otoscopic exam Overall: external auditory canals normal 09/17/2016 None Full Exam - ENT Ears/Nose/Throat otoscopic exam Left tympanic membrane: air -fluid level 09/17/2016 None Full Exam - ENT Ears/Nose/Throat otoscopic exam Right tympanic membrane: air-fluid level 09/17/2016 None Full Exam - ENT Ears/Nose/Throat lips/ teeth/gingiva Overall: benign lips 09/17/2016 None Full Exam - ENT Ears/Nose/Throat oropharynx Overall: oral mucosa clear 09/17/2016 None Full Exam - ENT Ears/Nose/Throat oropharynx Posterior Pharynx: clear post nasal drainage 09/17/2016 None Full Exam - ENT Ears/Nose/Throat oropharynx Posterior Pharynx: erythema 09/17/2016 None Full Exam - ENT Respiratory inspection Overall: no retractions 09/17/2016 None Full Exam - ENT Respiratory inspection Overall: normal rate 05/2017 None Full Exam - ENT Cardiovascular auscultation of heart Rate: normal rate 09/17/2016 None Full Exam - ENT Cardiovascular auscultation of heart Rhythm: regular rhythm 09/17/2016 None Full Exam - ENT Lymphatic palpation of lymph nodes Overall: anterior cervical chain benign 09/17/2016 None Full Exam - ENT Lymphatic palpation of lymph nodes Overall: posterior cervical chain benign 09/17/2016 None Full Exam - ENT Neurologic mood and affect Overall: normal mood 09/17/2016 None Full Exam - ENT Neurologic mood and affect Overall: normal affect 09/17/2016 None Full Exam - ENT Neurologic orientation Overall: oriented to person, place and time 09/17/2016 None Full Exam - ENT Respiratory auscultation Right lower lung field: expiratory wheezes 09/17/2016 None Full Exam - ENT Respiratory auscultation Left lower lung field: expiratory wheezes 09/17/2016 None Full Exam - Orthopedics Constitutional general appearance Overall: well nourished 08/03/2016 None Full Exam - Orthopedics Constitutional general appearance Overall: well developed 08/03/2016 None Full Exam - Orthopedics Constitutional general appearance Overall: in no acute distress 08/03/2016 None Full Exam - Orthopedics Eyes conjunctiva/ eyelids Overall: conjunctiva clear 08/03/2016 None Full Exam - Orthopedics Eyes conjunctiva/ eyelids Overall: eyelids normal 08/03/2016 None Full Exam - Orthopedics Ears/Nose/Throat lips/teeth/gingiva Overall: benign lips 08/03/2016 None Full Exam - Orthopedics Ears/Nose/Throat oral cavity/pharynx/larynx Overall: oral mucosa clear 08/03/2016 None Full Exam - Orthopedics Respiratory respiratory effort/rhythm Overall: no retractions 08/03/2016 None Full Exam - Orthopedics Respiratory respiratory effort/rhythm Overall: normal rate 08/03/2016 None Full Exam - Orthopedics Psychiatric orientation/consciousness Overall: oriented to person, place and time 08/03/2016 None Full Exam - Orthopedics Psychiatric mood and affect Overall: normal mood and affect 08/03/2016 None Full Exam - Orthopedics Psychiatric appearance Overall: well-groomed, good eye contact 08/03/2016 None Full Exam - Orthopedics MS: right lower extremity insp & palp - RLE Lower leg: swelling 08/03/2016 anterior - hematoma Full Exam - General 1994 Constitutional general appearance Development: well developed 07/25/2016 None Full Exam - General 1994 Constitutional general appearance Development: appears stated age 1107/25/2016 None Full Exam - General 1994 Constitutional general appearance Hygiene/Attention to Grooming: good hygiene 07/25/2016 None Full Exam - General 1994 Eyes conjunctiva /eyelids Overall: conjunctiva clear 07/25/2016 None Full Exam - General 1994 Eyes conjunctiva /eyelids Overall: cornea clear 07/25/2016 None Full Exam - General 1994 Eyes conjunctiva /eyelids Overall: eyelids normal 07/25/2016 None Full Exam - General 1994 Eyes pupils and irises Overall: pupils equal, round, reactive to light and accomodation 07/25/2016 None Full Exam - General 1994 Ears/Nose/Throat otoscopic exam Overall: external auditory canals clear 07/25/2016 None Full Exam - General 1994 Ears/Nose/Throat otoscopic exam Overall: tympanic membranes clear 07/25/2016 None Full Exam - General 1994 Ears/Nose/Throat lips/teeth/gingiva Overall: benign lips 07/25/2016 None Full Exam - General 1994 Ears/Nose/Throat lips/teeth/gingiva Overall: normal dentition 07/25/2016 None Full Exam - General 1994 Ears/Nose/Throat oral cavity/pharynx/larynx Overall: oral mucosa clear 07/25/2016 None Full Exam - General 1994 Ears/Nose/Throat oral cavity/pharynx/larynx Overall: oropharyngeal mucosa clear 07/25/2016 None Full Exam - General 1994 Ears/Nose/Throat oral cavity/pharynx/larynx Overall: hypopharynx benign 07/25/2016 None Full Exam - General 1994 Ears/Nose/Throat oral cavity/pharynx/larynx Overall: no masses 07/25/2016 None Full Exam - General 1994 Respiratory auscultation Overall: breath sounds clear bilaterally 07/25/2016 None Full Exam - General 1994 Respiratory respiratory effort/rhythm Overall: no retractions 07/25/2016 None Full Exam - General 1994 Respiratory respiratory effort/rhythm Overall: normal rate 07/25/2016 None Full Exam - General 1994 Cardiovascular extremities Overall: no clubbing 07/25/2016 None Full Exam - General 1994 Cardiovascular auscultation of heart Overall: regular rate 07/25/2016 None Full Exam - General 1994 Cardiovascular auscultation of heart Overall: normal heart sounds 07/25/2016 None Full Exam - General 1994 Abdomen abdominal exam Overall: no tenderness 07/25/2016 None Full Exam - General 1994 Abdomen abdominal exam Overall: normal bowel sounds 07/25/2016 None Full Exam - General 1994 Lymphatic neck nodes Overall: anterior cervical chain benign 07/25/2016 None Full Exam - General 1994 Lymphatic neck nodes Overall: posterior cervical chain benign 07/25/2016 None Full Exam - General 1994 Musculoskeletal spine, ribs and pelvis Overall: spine benign 07/25/2016 None Full Exam - General 1994 Musculoskeletal spine, ribs and pelvis Overall: sacroiliac joint benign 07/25/2016 None Full Exam - General 1994 Musculoskeletal spine, ribs and pelvis Overall: good posture 07/25/2016 None Full Exam - General 1994 Musculoskeletal head and neck Overall: head atraumatic 07/25/2016 None Full Exam - General 1994 Musculoskeletal head and neck Overall: cervical spine benign 07/25/2016 None Full Exam - General 1994 Integument inspection of skin Overall: few scattered moles, no gross abnormalities 07/25/2016 None Full Exam - General 1994 Neurologic deep tendon reflexes Overall: deep tendon reflexes intact 07/25/2016 None Full Exam - General 1994 Neurologic cranial nerves Overall: crainial nerves 2 - 12 grossly intact 07/25/2016 None Full Exam - General 1994 Psychiatric orientation/consciousness Overall: oriented to person, place and time 07/25/2016 None Full Exam - General 1994 Psychiatric mood and affect Overall: normal mood and affect 07/25/2016 None Full Exam - General 1994 Constitutional general appearance Development: well developed 03/22/2016 None Full Exam - General 1994 Constitutional general appearance Development: appears stated age 0703/22/2016 None Full Exam - General 1994 Constitutional general appearance Hygiene/Attention to Grooming: good hygiene 03/22/2016 None Full Exam - General 1994 Eyes conjunctiva /eyelids Overall: conjunctiva clear 03/22/2016 None Full Exam - General 1994 Eyes conjunctiva /eyelids Overall: cornea clear 03/22/2016 None Full Exam - General 1994 Eyes conjunctiva /eyelids Overall: eyelids normal 03/22/2016 None Full Exam - General 1994 Eyes pupils and irises Overall: pupils equal, round, reactive to light and accomodation 03/22/2016 None Full Exam - General 1994 Ears/Nose/Throat otoscopic exam Overall: external auditory canals clear 03/22/2016 None Full Exam - General 1994 Ears/Nose/Throat otoscopic exam Overall: tympanic membranes clear 03/22/2016 None Full Exam - General 1994 Ears/Nose/Throat lips/teeth/gingiva Overall: benign lips 03/22/2016 None Full Exam - General 1994 Ears/Nose/Throat lips/teeth/gingiva Overall: normal dentition 03/22/2016 None Full Exam - General 1994 Ears/Nose/Throat oral cavity/pharynx/larynx Overall: oral mucosa clear 03/22/2016 None Full Exam - General 1994 Ears/Nose/Throat oral cavity/pharynx/larynx Overall: oropharyngeal mucosa clear 03/22/2016 None Full Exam - General 1994 Ears/Nose/Throat oral cavity/pharynx/larynx Overall: hypopharynx benign 03/22/2016 None Full Exam - General 1994 Ears/Nose/Throat oral cavity/pharynx/larynx Overall: no masses 03/22/2016 None Full Exam - General 1994 Respiratory auscultation Overall: breath sounds clear bilaterally 03/22/2016 None Full Exam - General 1994 Respiratory respiratory effort/rhythm Overall: no retractions 03/22/2016 None Full Exam - General 1994 Respiratory respiratory effort/rhythm Overall: normal rate 03/22/2016 None Full Exam - General 1994 Cardiovascular extremities Overall: no clubbing 03/22/2016 None Full Exam - General 1994 Cardiovascular auscultation of heart Overall: regular rate 03/22/2016 None Full Exam - General 1994 Cardiovascular auscultation of heart Overall: normal heart sounds 03/22/2016 None Full Exam - General 1994 Abdomen abdominal exam Overall: no tenderness 03/22/2016 None Full Exam - General 1994 Abdomen abdominal exam Overall: normal bowel sounds 03/22/2016 None Full Exam - General 1994 Lymphatic neck nodes Overall: anterior cervical chain benign 03/22/2016 None Full Exam - General 1994 Lymphatic neck nodes Overall: posterior cervical chain benign 03/22/2016 None Full Exam - General 1994 Musculoskeletal spine, ribs and pelvis Overall: spine benign 03/22/2016 None Full Exam - General 1994 Musculoskeletal spine, ribs and pelvis Overall: sacroiliac joint benign 03/22/2016 None Full Exam - General 1994 Musculoskeletal spine, ribs and pelvis Overall: good posture 03/22/2016 None Full Exam - General 1994 Musculoskeletal head and neck Overall: head atraumatic 03/22/2016 None Full Exam - General 1994 Musculoskeletal head and neck Overall: cervical spine benign 03/22/2016 None Full Exam - General 1994 Integument inspection of skin Overall: few scattered moles, no gross abnormalities 03/22/2016 None Full Exam - General 1994 Neurologic deep tendon reflexes Overall: deep tendon reflexes intact 03/22/2016 None Full Exam - General 1994 Neurologic cranial nerves Overall: crainial nerves 2 - 12 grossly intact 03/22/2016 None Full Exam - General 1994 Psychiatric orientation/consciousness Overall: oriented to person, place and time 03/22/2016 None Full Exam - General 1994 Psychiatric mood and affect Overall: normal mood and affect 03/22/2016 None Full Exam - General 1994 Constitutional general appearance Development: well developed 01/12/2016 None Full Exam - General 1994 Constitutional general appearance Development: appears stated age 0501/12/2016 None Full Exam - General 1994 Constitutional general appearance Hygiene/Attention to Grooming: good hygiene 01/12/2016 None Full Exam - General 1994 Eyes conjunctiva /eyelids Overall: conjunctiva clear 01/12/2016 None Full Exam - General 1994 Eyes conjunctiva /eyelids Overall: cornea clear 01/12/2016 None Full Exam - General 1994 Eyes conjunctiva /eyelids Overall: eyelids normal 01/12/2016 None Full Exam - General 1994 Eyes pupils and irises Overall: pupils equal, round, reactive to light and accomodation 01/12/2016 None Full Exam - General 1994 Ears/Nose/Throat otoscopic exam Overall: external auditory canals clear 01/12/2016 None Full Exam - General 1994 Ears/Nose/Throat otoscopic exam Overall: tympanic membranes clear 01/12/2016 None Full Exam - General 1994 Ears/Nose/Throat lips/teeth/gingiva Overall: benign lips 01/12/2016 None Full Exam - General 1994 Ears/Nose/Throat lips/teeth/gingiva Overall: normal dentition 01/12/2016 None Full Exam - General 1994 Ears/Nose/Throat oral cavity/pharynx/larynx Overall: oral mucosa clear 01/12/2016 None Full Exam - General 1994 Ears/Nose/Throat oral cavity/pharynx/larynx Overall: oropharyngeal mucosa clear 01/12/2016 None Full Exam - General 1994 Ears/Nose/Throat oral cavity/pharynx/larynx Overall: hypopharynx benign 01/12/2016 None Full Exam - General 1994 Ears/Nose/Throat oral cavity/pharynx/larynx Overall: no masses 01/12/2016 None Full Exam - General 1994 Respiratory auscultation Overall: breath sounds clear bilaterally 01/12/2016 None Full Exam - General 1994 Respiratory respiratory effort/rhythm Overall: no retractions 01/12/2016 None Full Exam - General 1994 Respiratory respiratory effort/rhythm Overall: normal rate 01/12/2016 None Full Exam - General 1994 Cardiovascular extremities Overall: no clubbing 01/12/2016 None Full Exam - General 1994 Cardiovascular auscultation of heart Overall: regular rate 01/12/2016 None Full Exam - General 1994 Cardiovascular auscultation of heart Overall: normal heart sounds 01/12/2016 None Full Exam - General 1994 Abdomen abdominal exam Overall: no tenderness 01/12/2016 None Full Exam - General 1994 Abdomen abdominal exam Overall: normal bowel sounds 01/12/2016 None Full Exam - General 1994 Lymphatic neck nodes Overall: anterior cervical chain benign 01/12/2016 None Full Exam - General 1994 Lymphatic neck nodes Overall: posterior cervical chain benign 01/12/2016 None Full Exam - General 1994 Musculoskeletal spine, ribs and pelvis Overall: spine benign 01/12/2016 None Full Exam - General 1994 Musculoskeletal spine, ribs and pelvis Overall: sacroiliac joint benign 01/12/2016 None Full Exam - General 1994 Musculoskeletal spine, ribs and pelvis Overall: good posture 01/12/2016 None Full Exam - General 1994 Musculoskeletal head and neck Overall: head atraumatic 01/12/2016 None Full Exam - General 1994 Musculoskeletal head and neck Overall: cervical spine benign 01/12/2016 None Full Exam - General 1994 Integument inspection of skin Overall: few scattered moles, no gross abnormalities 01/12/2016 None Full Exam - General 1994 Neurologic deep tendon reflexes Overall: deep tendon reflexes intact 01/12/2016 None Full Exam - General 1994 Neurologic cranial nerves Overall: crainial nerves 2 - 12 grossly intact 01/12/2016 None Full Exam - General 1994 Psychiatric orientation/consciousness Overall: oriented to person, place and time 01/12/2016 None Full Exam - General 1994 Psychiatric mood and affect Overall: normal mood and affect 01/12/2016 None Full Exam - General 1994 Constitutional general appearance Development: well developed 10/13/2015 None Full Exam - General 1994 Constitutional general appearance Development: appears stated age 0210/13/2015 None Full Exam - General 1994 Constitutional general appearance Hygiene/Attention to Grooming: good hygiene 10/13/2015 None Full Exam - General 1994 Eyes conjunctiva /eyelids Overall: conjunctiva clear 10/13/2015 None Full Exam - General 1994 Eyes conjunctiva /eyelids Overall: cornea clear 10/13/2015 None Full Exam - General 1994 Eyes conjunctiva /eyelids Overall: eyelids normal 10/13/2015 None Full Exam - General 1994 Eyes pupils and irises Overall: pupils equal, round, reactive to light and accomodation 10/13/2015 None Full Exam - General 1994 Ears/Nose/Throat otoscopic exam Overall: external auditory canals clear 10/13/2015 None Full Exam - General 1994 Ears/Nose/Throat otoscopic exam Overall: tympanic membranes clear 10/13/2015 None Full Exam - General 1994 Ears/Nose/Throat lips/teeth/gingiva Overall: benign lips 10/13/2015 None Full Exam - General 1994 Ears/Nose/Throat lips/teeth/gingiva Overall: normal dentition 10/13/2015 None Full Exam - General 1994 Ears/Nose/Throat oral cavity/pharynx/larynx Overall: oral mucosa clear 10/13/2015 None Full Exam - General 1994 Ears/Nose/Throat oral cavity/pharynx/larynx Overall: oropharyngeal mucosa clear 10/13/2015 None Full Exam - General 1994 Ears/Nose/Throat oral cavity/pharynx/larynx Overall: hypopharynx benign 10/13/2015 None Full Exam - General 1994 Ears/Nose/Throat oral cavity/pharynx/larynx Overall: no masses 10/13/2015 None Full Exam - General 1994 Respiratory auscultation Overall: breath sounds clear bilaterally 10/13/2015 None Full Exam - General 1994 Respiratory respiratory effort/rhythm Overall: no retractions 10/13/2015 None Full Exam - General 1994 Respiratory respiratory effort/rhythm Overall: normal rate 10/13/2015 None Full Exam - General 1994 Cardiovascular extremities Overall: no clubbing 10/13/2015 None Full Exam - General 1994 Cardiovascular auscultation of heart Overall: regular rate 10/13/2015 None Full Exam - General 1994 Cardiovascular auscultation of heart Overall: normal heart sounds 10/13/2015 None Full Exam - General 1994 Abdomen abdominal exam Overall: no tenderness 10/13/2015 None Full Exam - General 1994 Abdomen abdominal exam Overall: normal bowel sounds 10/13/2015 None Full Exam - General 1994 Lymphatic neck nodes Overall: anterior cervical chain benign 10/13/2015 None Full Exam - General 1994 Lymphatic neck nodes Overall: posterior cervical chain benign 10/13/2015 None Full Exam - General 1994 Musculoskeletal spine, ribs and pelvis Overall: spine benign 10/13/2015 None Full Exam - General 1994 Musculoskeletal spine, ribs and pelvis Overall: sacroiliac joint benign 10/13/2015 None Full Exam - General 1994 Musculoskeletal spine, ribs and pelvis Overall: good posture 10/13/2015 None Full Exam - General 1994 Musculoskeletal head and neck Overall: head atraumatic 10/13/2015 None Full Exam - General 1994 Musculoskeletal head and neck Overall: cervical spine benign 10/13/2015 None Full Exam - General 1994 Integument inspection of skin Overall: few scattered moles, no gross abnormalities 10/13/2015 None Full Exam - General 1994 Neurologic deep tendon reflexes Overall: deep tendon reflexes intact 10/13/2015 None Full Exam - General 1994 Neurologic cranial nerves Overall: crainial nerves 2 - 12 grossly intact 10/13/2015 None Full Exam - General 1994 Psychiatric orientation/consciousness Overall: oriented to person, place and time 10/13/2015 None Full Exam - General 1994 Psychiatric mood and affect Overall: normal mood and affect 10/13/2015 None Full Exam - General 1994 Constitutional general appearance Development: well developed 09/13/2015 None Full Exam - General 1994 Constitutional general appearance Development: appears stated age 0109/13/2015 None Full Exam - General 1994 Constitutional general appearance Hygiene/Attention to Grooming: good hygiene 09/13/2015 None Full Exam - General 1994 Eyes conjunctiva /eyelids Overall: conjunctiva clear 09/13/2015 None Full Exam - General 1994 Eyes conjunctiva /eyelids Overall: cornea clear 09/13/2015 None Full Exam - General 1994 Eyes conjunctiva /eyelids Overall: eyelids normal 09/13/2015 None Full Exam - General 1994 Eyes pupils and irises Overall: pupils equal, round, reactive to light and accomodation 09/13/2015 None Full Exam - General 1994 Ears/Nose/Throat otoscopic exam Overall: external auditory canals clear 09/13/2015 None Full Exam - General 1994 Ears/Nose/Throat otoscopic exam Overall: tympanic membranes clear 09/13/2015 None Full Exam - General 1994 Ears/Nose/Throat lips/teeth/gingiva Overall: benign lips 09/13/2015 None Full Exam - General 1994 Ears/Nose/Throat lips/teeth/gingiva Overall: normal dentition 09/13/2015 None Full Exam - General 1994 Ears/Nose/Throat oral cavity/pharynx/larynx Overall: oral mucosa clear 09/13/2015 None Full Exam - General 1994 Ears/Nose/Throat oral cavity/pharynx/larynx Overall: oropharyngeal mucosa clear 09/13/2015 None Full Exam - General 1994 Ears/Nose/Throat oral cavity/pharynx/larynx Overall: hypopharynx benign 09/13/2015 None Full Exam - General 1994 Ears/Nose/Throat oral cavity/pharynx/larynx Overall: no masses 09/13/2015 None Full Exam - General 1994 Respiratory auscultation Overall: breath sounds clear bilaterally 09/13/2015 None Full Exam - General 1994 Respiratory respiratory effort/rhythm Overall: no retractions 09/13/2015 None Full Exam - General 1994 Respiratory respiratory effort/rhythm Overall: normal rate 09/13/2015 None Full Exam - General 1994 Cardiovascular extremities Overall: no clubbing 09/13/2015 None Full Exam - General 1994 Cardiovascular auscultation of heart Overall: regular rate 09/13/2015 None Full Exam - General 1994 Cardiovascular auscultation of heart Overall: normal heart sounds 09/13/2015 None Full Exam - General 1994 Abdomen abdominal exam Overall: no tenderness 09/13/2015 None Full Exam - General 1994 Abdomen abdominal exam Overall: normal bowel sounds 09/13/2015 None Full Exam - General 1994 Lymphatic neck nodes Overall: anterior cervical chain benign 09/13/2015 None Full Exam - General 1994 Lymphatic neck nodes Overall: posterior cervical chain benign 09/13/2015 None Full Exam - General 1994 Musculoskeletal spine, ribs and pelvis Overall: spine benign 09/13/2015 None Full Exam - General 1994 Musculoskeletal spine, ribs and pelvis Overall: sacroiliac joint benign 09/13/2015 None Full Exam - General 1994 Musculoskeletal spine, ribs and pelvis Overall: good posture 09/13/2015 None Full Exam - General 1994 Musculoskeletal head and neck Overall: head atraumatic 09/13/2015 None Full Exam - General 1994 Musculoskeletal head and neck Overall: cervical spine benign 09/13/2015 None Full Exam - General 1994 Integument inspection of skin Overall: few scattered moles, no gross abnormalities 09/13/2015 None Full Exam - General 1994 Neurologic deep tendon reflexes Overall: deep tendon reflexes intact 09/13/2015 None Full Exam - General 1994 Neurologic cranial nerves Overall: crainial nerves 2 - 12 grossly intact 09/13/2015 None Full Exam - General 1994 Psychiatric orientation/consciousness Overall: oriented to person, place and time 09/13/2015 None Full Exam - General 1994 Psychiatric mood and affect Overall: normal mood and affect 09/13/2015 None Full Exam - General 1994 Constitutional general appearance Development: well developed 07/05/2015 None Full Exam - General 1994 Constitutional general appearance Development: appears stated age 1007/05/2015 None Full Exam - General 1994 Constitutional general appearance Hygiene/Attention to Grooming: good hygiene 07/05/2015 None Full Exam - General 1994 Eyes conjunctiva /eyelids Overall: conjunctiva clear 07/05/2015 None Full Exam - General 1994 Eyes conjunctiva /eyelids Overall: cornea clear 07/05/2015 None Full Exam - General 1994 Eyes conjunctiva /eyelids Overall: eyelids normal 07/05/2015 None Full Exam - General 1994 Eyes pupils and irises Overall: pupils equal, round, reactive to light and accomodation 07/05/2015 None Full Exam - General 1994 Ears/Nose/Throat otoscopic exam Overall: external auditory canals clear 07/05/2015 None Full Exam - General 1994 Ears/Nose/Throat otoscopic exam Overall: tympanic membranes clear 07/05/2015 None Full Exam - General 1994 Ears/Nose/Throat lips/teeth/gingiva Overall: benign lips 07/05/2015 None Full Exam - General 1994 Ears/Nose/Throat lips/teeth/gingiva Overall: normal dentition 07/05/2015 None Full Exam - General 1994 Ears/Nose/Throat oral cavity/pharynx/larynx Overall: oral mucosa clear 07/05/2015 None Full Exam - General 1994 Ears/Nose/Throat oral cavity/pharynx/larynx Overall: oropharyngeal mucosa clear 07/05/2015 None Full Exam - General 1994 Ears/Nose/Throat oral cavity/pharynx/larynx Overall: hypopharynx benign 07/05/2015 None Full Exam - General 1994 Ears/Nose/Throat oral cavity/pharynx/larynx Overall: no masses 07/05/2015 None Full Exam - General 1994 Respiratory auscultation Overall: breath sounds clear bilaterally 07/05/2015 None Full Exam - General 1994 Respiratory respiratory effort/rhythm Overall: no retractions 07/05/2015 None Full Exam - General 1994 Respiratory respiratory effort/rhythm Overall: normal rate 07/05/2015 None Full Exam - General 1994 Cardiovascular extremities Overall: no clubbing 07/05/2015 None Full Exam - General 1994 Cardiovascular auscultation of heart Overall: regular rate 07/05/2015 None Full Exam - General 1994 Cardiovascular auscultation of heart Overall: normal heart sounds 07/05/2015 None Full Exam - General 1994 Abdomen abdominal exam Overall: no tenderness 07/05/2015 None Full Exam - General 1994 Abdomen abdominal exam Overall: normal bowel sounds 07/05/2015 None Full Exam - General 1994 Lymphatic neck nodes Overall: anterior cervical chain benign 07/05/2015 None Full Exam - General 1994 Lymphatic neck nodes Overall: posterior cervical chain benign 07/05/2015 None Full Exam - General 1994 Musculoskeletal spine, ribs and pelvis Overall: spine benign 07/05/2015 None Full Exam - General 1994 Musculoskeletal spine, ribs and pelvis Overall: sacroiliac joint benign 07/05/2015 None Full Exam - General 1994 Musculoskeletal spine, ribs and pelvis Overall: good posture 07/05/2015 None Full Exam - General 1994 Musculoskeletal head and neck Overall: head atraumatic 07/05/2015 None Full Exam - General 1994 Musculoskeletal head and neck Overall: cervical spine benign 07/05/2015 None Full Exam - General 1994 Integument inspection of skin Overall: few scattered moles, no gross abnormalities 07/05/2015 None Full Exam - General 1994 Neurologic deep tendon reflexes Overall: deep tendon reflexes intact 07/05/2015 None Full Exam - General 1994 Neurologic cranial nerves Overall: crainial nerves 2 - 12 grossly intact 07/05/2015 None Full Exam - General 1994 Psychiatric orientation/consciousness Overall: oriented to person, place and time 07/05/2015 None Full Exam - General 1994 Psychiatric mood and affect Overall: normal mood and affect 07/05/2015 None Procedures Procedure Codes Date PPPS, SUBSEQ VISIT CPT -4: G0439 11/16/2016 THER/PROPH/DIAG INJ SC/IM CPT-4: 00818 07/25/2016 TRIAMCINOLONE ACET INJ NOS CPT-4: J3301 07/25/2016 Vital Signs Date Vital 10/07/2017 Blood Pressure 1: 150/70 Code : 8480-6 BMI: 39.5 Code : 80838-5 Heart Rate 1 : 65 bpm Height: 5'7" SpO2: 97% Weight: 252 lbs 06/03/2017 Blood Pressure 1: 140/70 Code : 8480-6 BMI: 37.9 Code : 81223-5 Heart Rate 1 : 66 bpm Height: 5'7" SpO2: 96% Weight: 242 lbs 03/19/2017 Blood Pressure 1: 136/82 Code : 8480-6 BMI: 38.8 Code : 42301-4 Heart Rate 1 : 58 bpm Height: 5'7" SpO2: 94% Weight: 247 lbs 8 oz 01/21/2017 Blood Pressure 1: 136/74 Code : 8480-6 BMI: 39.1 Code : 97883-4 Heart Rate 1 : 58 bpm Height: 5'7" SpO2: 97% Weight: 249 lbs 8 oz 12/04/2016 Blood Pressure 1: 136/72 Code : 8480-6 Heart Rate 1: 55 bpm Height: 5'7" SpO2: 99% Weight: 11/16/2016 Blood Pressure 1: 124/76 Code : 8480-6 BMI: 39.2 Code : 18262-5 Heart Rate 1 : 62 bpm Height: 5'7" SpO2: 96% Waist Measure (cm): 104 cm Weight: 250 lbs 11/14/2016 Blood Pressure 1: 152/60 Code : 8480-6 BMI: 39.8 Code : 56465-3 Heart Rate 1 : 63 bpm Height: 5'7" SpO2: 94% Weight: 254 lbs 09/17/2016 Blood Pressure 1: 138/70 Code : 8480-6 BMI: 40.3 Code : 37045-0 Heart Rate 1 : 60 bpm Height: 5'7" SpO2: 96% Weight: 257 lbs 08/03/2016 Blood Pressure 1: 148/78 Code : 8480-6 BMI: 39.9 Code : 90444-1 Heart Rate 1 : 50 bpm Height: 5'7" SpO2: 97% Weight: 255 lbs 07/25/2016 Blood Pressure 1: 130/68 Code : 8480-6 BMI: 39.9 Code : 73205-9 Heart Rate 1 : 61 bpm Height: 5'7" SpO2: 95% Weight: 255 lbs 03/22/2016 Blood Pressure 1: 136/76 Code : 8480-6 BMI: 39.0 Code : 37753-8 Heart Rate 1 : 60 bpm Height: 5'7" SpO2: 98% Weight: 249 lbs 01/12/2016 Blood Pressure 1: 146/76 Code : 8480-6 BMI: 37.8 Code : 85955-8 Heart Rate 1 : 59 bpm Height: 5'7" SpO2: 98% Weight: 241 lbs 8 oz 10/13/2015 Blood Pressure 1: 136/72 Code : 8480-6 BMI: 37.6 Code : 52083-2 Heart Rate 1 : 70 bpm Height: 5'7" SpO2: 99% Weight: 240 lbs 09/13/2015 Blood Pressure 1: 140/80 Code : 8480-6 BMI: 37.2 Code : 89962-8 Heart Rate 1 : 64 bpm Height: 5'7" SpO2: 97% Weight: 237 lbs 8 oz 07/05/2015 Blood Pressure 1: 130/70 Code : 8480-6 Blood Pressure 1: 170/84 Code: 8480-6 BMI: 35.9 Code: 17702-6 Heart Rate 1: 67 bpm Height: 5'7" SpO2: 95% Weight: 229 lbs Functional Status No Functional Status data History of Present Illness Symptom Name Status Result Effective Date Notes hypertension Quality primary hypertension 10/07/2017 None hypertension Onset and Resolution ongoing 10/07/2017 None hypertension Onset of Symptom during adulthood 10/07/2017 None hypertension Pertinent Findings Denies dizziness 10/07/2017 None hypertension Pertinent Findings dyspnea 10/07/2017 "some" hypertension Pertinent Findings edema 10/07/2017 if he sits in a chair for too long hypertension Blood Pressure Values patient checking blood pressure at home - did not bring in readings 10/07/2017 -Checks occasionally anxiety Onset and Resolution ongoing 10/07/2017 None anxiety Alleviating Factors medication 10/07/2017 None anxiety Quality chronic 10/07/2017 None hypertension Onset and Resolution ongoing 06/03/2017 None hypertension Onset of Symptom during adulthood 06/03/2017 None hypertension Blood Pressure Values not checking blood pressure at home 06/03/2017 None hypertension Alleviating Factors medication 06/03/2017 None hypertension Pertinent Findings anxiety 06/03/2017 None hypertension Pertinent Findings Denies dizziness 06/03/2017 None hypertension Pertinent Findings Denies dyspnea 06/03/2017 None hypertension Pertinent Findings edema 06/03/2017 if he sits in a chair for too long chest pain/pressure Location in the epigastric area 06/03/2017 None chest pain/pressure Location in the substernal area 06/03/2017 None chest pain/pressure Pertinent Findings anxiety 06/03/2017 None chest pain/pressure Pertinent Findings Denies confusion 06/03/2017 None chest pain/pressure Pertinent Findings Denies dyspnea 06/03/2017 None chest pain/pressure Pertinent Findings Denies lightheadedness 06/03/2017 None hypertension Quality primary hypertension 06/03/2017 None chest pain/pressure Quality pressure 06/03/2017 None chest pain/pressure Quality intermittent 06/03/2017 None hypertension Onset and Resolution ongoing 03/19/2017 None hypertension Onset of Symptom during adulthood 03/19/2017 None hypertension Blood Pressure Values not checking blood pressure at home 03/19/2017 None hypertension Alleviating Factors medication 03/19/2017 None hypertension Pertinent Findings anxiety 03/19/2017 None hypertension Pertinent Findings dizziness 03/19/2017 -mild hypertension Pertinent Findings dyspnea 03/19/2017 -mild hypertension Pertinent Findings edema 03/19/2017 None anxiety Quality intermittent 03/19/2017 None anxiety Onset and Resolution ongoing 03/19/2017 None anxiety Onset of Symptom months ago 03/19/2017 None anxiety Pertinent Findings nightmares 03/19/2017 None chest pain/pressure Location in the substernal area 03/19/2017 None chest pain/pressure Location in the epigastric area 03/19/2017 None chest pain/pressure Quality acute 03/19/2017 None chest pain/pressure Pertinent Findings Denies lightheadedness 03/19/2017 None chest pain/pressure Pertinent Findings anxiety 03/19/2017 None chest pain/pressure Pertinent Findings Denies confusion 03/19/2017 None chest pain/pressure Pertinent Findings Denies dyspnea 03/19/2017 None lower leg pain Location on the right 01/21/2017 None lower leg pain Quality numbness 01/21/2017 None lower leg pain Quality tingling 01/21/2017 None lower leg pain Pertinent Findings numbness 01/21/2017 None lower leg pain Pertinent Findings redness 01/21/2017 None lower leg pain Pertinent Findings stiffness 01/21/2017 None lower leg pain Pertinent Findings swelling 01/21/2017 None lower leg pain Pertinent Findings tingling 01/21/2017 None lower leg pain Pertinent Findings warmth 01/21/2017 None lower leg pain Significant Medical Conditions prior injury 01/21/2017 None lower leg pain Mechanism of injury direct trauma 01/21/2017 None lower leg pain Alleviating Factors elevation 01/21/2017 None lower leg pain Alleviating Factors ice compression 01/21/2017 None lower leg pain Alleviating Factors non weight bearing 01/21/2017 None lower leg pain Alleviating Factors rest 01/21/2017 None lower leg pain Significant Medications NSAID's 01/21/2017 None lower leg pain Onset and Resolution sudden in onset 01/21/2017 None edema Onset and Resolution sudden in onset 01/21/2017 None edema Onset of Symptom 1 weeks ago 01/21/2017 None edema Limitation on Activities does not limit activities 01/21/2017 None edema Pertinent Findings limb pain / tenderness 01/21/2017 None edema Pertinent Findings limb redness 01/21/2017 None edema Location on the right leg 01/21/2017 None edema Quality acute None edema Quality constant 01/21/2017 None edema Quality pitting 01/21/2017 None edema Quality painful 01/21/2017 None edema Exacerbating Factors standing 01/21/2017 None edema Exacerbating Factors activity 01/21/2017 None edema Alleviating Factors rest 01/21/2017 None edema Alleviating Factors recumbency 01/21/2017 None lower leg pain Onset of Symptom 8 days ago 01/21/2017 hit right benites on a trailer 8 days ago hypertension Onset and Resolution ongoing 12/04/2016 None hypertension Onset of Symptom during adulthood 12/04/2016 None hypertension Blood Pressure Values not checking blood pressure at home 12/04/2016 None hypertension Pertinent Findings anxiety 12/04/2016 None hypertension Pertinent Findings dizziness 12/04/2016 -mild hypertension Pertinent Findings dyspnea 12/04/2016 -mild hypertension Pertinent Findings edema 12/04/2016 None anxiety Quality intermittent 12/04/2016 None anxiety Onset and Resolution ongoing 12/04/2016 None anxiety Onset of Symptom months ago 12/04/2016 None anxiety Pertinent Findings nightmares 12/04/2016 None hypertension Alleviating Factors medication 12/04/2016 None Annual Medicare Wellness Exam Alcohol Use drinks 1 drinks per day 11/16/2016 None Annual Medicare Wellness Exam Aspirin Use yes 11/16/2016 None Annual Medicare Wellness Exam Blood Glucose (self reported) don't know 11/16/2016 None Annual Medicare Wellness Exam Blood Pressure (self reported ) borderline (120/80 - 139/89) 11/16/2016 None Annual Medicare Wellness Exam Cholesterol (self reported) don't know 11/16/2016 None Annual Medicare Wellness Exam Depression (last 6 months) some of the time 11/16/2016 None Annual Medicare Wellness Exam Depression or Hopelessness almost never 11/16/2016 None Annual Medicare Wellness Exam Describe Your Health excellent 11/16/2016 None Annual Medicare Wellness Exam Exercise Habits does not exercise 11/16/2016 None Annual Medicare Wellness Exam Handling Stress has problems coping 11/16/2016 None Annual Medicare Wellness Exam Hemaglobin A-1C (self reported ) don't know 11/16/2016 None Annual Medicare Wellness Exam Hours of Sleep 8 11/16/2016 None Annual Medicare Wellness Exam Interaction with Friends yes 11/16/2016 None Annual Medicare Wellness Exam Interests & Pleasure almost all of the time 11/16/2016 None Annual Medicare Wellness Exam Life Satisfaction very satisfied 11/16/2016 None Annual Medicare Wellness Exam Motor Vehicle Safety always fastens seat belt: y 11/16/2016 None Annual Medicare Wellness Exam Motor Vehicle Safety drives after drinking: nn 11/16/2016 None Annual Medicare Wellness Exam Motor Vehicle Safety rides with someone who has been drinking: _ 2016 None Annual Medicare Wellness Exam Nutrition servings of fried food / high fat foods per day: 1 2016 None Annual Medicare Wellness Exam Nutrition servings of high fiber / whole grain per day: 2 11/16/2016 None Annual Medicare Wellness Exam Nutrition servings of vegetables / fruit per day: 4 11/16/2016 None Annual Medicare Wellness Exam Smoking and Tobacco Use non smoker 11/16/2016 None Annual Medicare Wellness Exam Social & Emotional Support always 11/16/2016 None Annual Medicare Wellness Exam Stress daily 11/16/2016 None Annual Medicare Wellness Exam Sun Exposure protects skin when outdoors: n 11/16/2016 None hypertension Onset and Resolution ongoing 11/14/2016 None hypertension Onset of Symptom during adulthood 11/14/2016 None hypertension Blood Pressure Values not checking blood pressure at home 11/14/2016 None hypertension Pertinent Findings anxiety 11/14/2016 None hypertension Pertinent Findings Denies dizziness 11/14/2016 None hypertension Pertinent Findings Denies dyspnea 11/14/2016 None hypertension Pertinent Findings edema 11/14/2016 None hyperlipidemia Onset and Resolution ongoing 11/14/2016 None hyperlipidemia Onset of Symptom during adulthood 11/14/2016 None hyperlipidemia Alleviating Factors medication 11/14/2016 None hyperlipidemia Exacerbating Factors diet 11/14/2016 None anxiety Quality intermittent 11/14/2016 None anxiety Onset and Resolution ongoing 11/14/2016 None anxiety Onset of Symptom months ago 11/14/2016 None anxiety Alleviating Factors medication 11/14/2016 None anxiety Pertinent Findings nightmares 11/14/2016 None cough Location in the lung 09/17/2016 None cough Quality acute None cough Quality productive 09/17/2016 None cough Pertinent Findings Denies dyspnea 09/17/2016 None sore throat Location diffusely 09/17/2016 None sore throat Quality acute 09/17/2016 None sore throat Onset and Resolution sudden in onset 09/17/2016 None sore throat Pertinent Findings Denies fever 09/17/2016 None chest congestion Quality acute 09/17/2016 None chest congestion Pertinent Findings Denies dyspnea 09/17/2016 None chest congestion Pertinent Findings chills 09/17/2016 None chest congestion Pertinent Findings cough 09/17/2016 None new lesion Location-Major on the legs 08/03/2016 None new lesion Location-Extremities on the right leg 08/03/2016 None new lesion Quality constant 08/03/2016 None new lesion Color red 08/03/2016 None new lesion Onset and Resolution sudden in onset 08/03/2016 None new lesion Onset of Symptom 2 weeks ago 08/03/2016 None gastroesophageal reflux Onset and Resolution ongoing 07/25/2016 None gastroesophageal reflux Onset of Symptom months ago 07/25/2016 None gastroesophageal reflux Frequency of Episodes most meals 07/25/2016 None gastroesophageal reflux Alleviating Factors position change 07/25/2016 None gastroesophageal reflux Alleviating Factors medication 07/25/2016 None gastroesophageal reflux Exacerbating Factors eating 07/25/2016 None chest pain/pressure Radiating the right arm 07/25/2016 tingling sensation chest pain/pressure Radiating the left arm 07/25/2016 tingling sensation- more so on this side chest pain/pressure Quality intermittent 07/25/2016 None chest pain/pressure Onset and Resolution ongoing 07/25/2016 None chest pain/pressure Onset of Symptom months ago 07/25/2016 since May chest pain/pressure Pertinent Findings cough 07/25/2016 None chest pain/pressure Pertinent Findings Denies dyspnea 07/25/2016 None chest pain/pressure Pertinent Findings Denies palpitations 07/25/2016 None hypertension Onset and Resolution ongoing 07/25/2016 None hypertension Onset of Symptom during adulthood 07/25/2016 None hypertension Blood Pressure Values not checking blood pressure at home 07/25/2016 None hypertension Pertinent Findings anxiety 07/25/2016 None hypertension Pertinent Findings Denies dizziness 07/25/2016 None hypertension Pertinent Findings Denies dyspnea 07/25/2016 None hypertension Pertinent Findings edema 07/25/2016 None hyperlipidemia Onset and Resolution gradual in onset 07/25/2016 None hyperlipidemia Onset and Resolution ongoing 07/25/2016 None hyperlipidemia Onset of Symptom during adulthood 07/25/2016 None hyperlipidemia Alleviating Factors medication 07/25/2016 None hyperlipidemia Exacerbating Factors diet 07/25/2016 None anxiety Quality intermittent 07/25/2016 None anxiety Onset and Resolution ongoing 07/25/2016 None anxiety Onset of Symptom months ago 07/25/2016 None anxiety Alleviating Factors medication 07/25/2016 None anxiety Pertinent Findings nightmares 07/25/2016 None sinus congestion Onset and Resolution ongoing 07/25/2016 None gastroesophageal reflux Onset and Resolution ongoing 03/22/2016 None gastroesophageal reflux Onset of Symptom months ago 03/22/2016 None gastroesophageal reflux Alleviating Factors position change 03/22/2016 None gastroesophageal reflux Alleviating Factors medication 03/22/2016 None gastroesophageal reflux Exacerbating Factors eating 03/22/2016 None chest pain/pressure Radiating the right arm 03/22/2016 tingling sensation chest pain/pressure Radiating the left arm 03/22/2016 tingling sensation- more so on this side chest pain/pressure Quality intermittent 03/22/2016 None chest pain/pressure Quality pressure 03/22/2016 None chest pain/pressure Onset and Resolution ongoing 03/22/2016 None chest pain/pressure Onset of Symptom months ago 03/22/2016 since May chest pain/pressure Pertinent Findings cough 03/22/2016 None chest pain/pressure Pertinent Findings dyspnea 03/22/2016 None chest pain/pressure Pertinent Findings Denies palpitations 03/22/2016 None hypertension Onset and Resolution ongoing 03/22/2016 None hypertension Onset of Symptom during adulthood 03/22/2016 None hypertension Blood Pressure Values not checking blood pressure at home 03/22/2016 None hypertension Alleviating Factors medication 03/22/2016 None hypertension Pertinent Findings dyspnea 03/22/2016 intermittent hypertension Pertinent Findings Denies dizziness 03/22/2016 None hypertension Pertinent Findings edema 03/22/2016 None hypertension Pertinent Findings anxiety 03/22/2016 None hyperlipidemia Onset and Resolution gradual in onset 03/22/2016 None hyperlipidemia Onset and Resolution ongoing 03/22/2016 None hyperlipidemia Onset of Symptom during adulthood 03/22/2016 None hyperlipidemia Alleviating Factors medication 03/22/2016 None hyperlipidemia Exacerbating Factors diet 03/22/2016 None gastroesophageal reflux Frequency of Episodes most meals 03/22/2016 None gastroesophageal reflux Onset and Resolution ongoing 01/12/2016 None gastroesophageal reflux Onset of Symptom _ months ago 01/12/2016 None gastroesophageal reflux Frequency of Episodes every meal 01/12/2016 None gastroesophageal reflux Alleviating Factors position change 01/12/2016 None gastroesophageal reflux Alleviating Factors medication 01/12/2016 None gastroesophageal reflux Exacerbating Factors eating 01/12/2016 None chest pain/pressure Radiating the right arm 01/12/2016 tingling sensation chest pain/pressure Radiating the left arm 01/12/2016 tingling sensation- more so on this side chest pain/pressure Quality intermittent 01/12/2016 None chest pain/pressure Quality pressure 01/12/2016 None chest pain/pressure Onset and Resolution ongoing 01/12/2016 None chest pain/pressure Onset of Symptom _ months ago 01/12/2016 since May chest pain/pressure Pertinent Findings cough 01/12/2016 None chest pain/pressure Pertinent Findings Denies dyspnea 01/12/2016 None chest pain/pressure Pertinent Findings Denies palpitations 01/12/2016 None cough Quality intermittent 01/12/2016 None cough Onset and Resolution ongoing 01/12/2016 None cough Triggers meals 01/12/2016 None cough Pertinent Findings chest discomfort 01/12/2016 pressure cough Pertinent Findings Denies heartburn 01/12/2016 None gastroesophageal reflux Onset and Resolution ongoing 10/13/2015 None gastroesophageal reflux Onset of Symptom _ months ago 10/13/2015 None gastroesophageal reflux Frequency of Episodes every meal 10/13/2015 None gastroesophageal reflux Alleviating Factors position change 10/13/2015 None gastroesophageal reflux Alleviating Factors medication 10/13/2015 None gastroesophageal reflux Exacerbating Factors eating 10/13/2015 None chest pain/pressure Quality intermittent 10/13/2015 None chest pain/pressure Quality pressure 10/13/2015 None chest pain/pressure Radiating the left arm 10/13/2015 tingling sensation- more so on this side chest pain/pressure Radiating the right arm 10/13/2015 tingling sensation chest pain/pressure Onset and Resolution ongoing 10/13/2015 None chest pain/pressure Onset of Symptom _ months ago 10/13/2015 since May chest pain/pressure Pertinent Findings Denies palpitations 10/13/2015 None chest pain/pressure Pertinent Findings cough 10/13/2015 None chest pain/pressure Pertinent Findings Denies dyspnea 10/13/2015 None cough Quality intermittent 10/13/2015 None cough Onset and Resolution ongoing 10/13/2015 None cough Pertinent Findings chest discomfort 10/13/2015 pressure cough Pertinent Findings Denies heartburn 10/13/2015 None cough Triggers meals 10/13/2015 None hyperlipidemia Onset and Resolution ongoing 09/13/2015 None hyperlipidemia Alleviating Factors medication 09/13/2015 None hyperlipidemia Significant Family History hyperlipidemia 09/13/2015 None hyperlipidemia Exacerbating Factors diet 09/13/2015 None gastroesophageal reflux Onset and Resolution ongoing 09/13/2015 None gastroesophageal reflux Onset of Symptom _ months ago 09/13/2015 None gastroesophageal reflux Frequency of Episodes every meal 09/13/2015 None gastroesophageal reflux Exacerbating Factors eating 09/13/2015 None gastroesophageal reflux Alleviating Factors position change 09/13/2015 None gastroesophageal reflux Alleviating Factors medication 09/13/2015 None hyperlipidemia Onset and Resolution ongoing 07/05/2015 None hyperlipidemia Triggers no known associated factors 07/05/2015 None hyperlipidemia Alleviating Factors medication 07/05/2015 None hyperlipidemia Exacerbating Factors medication 07/05/2015 None hyperlipidemia Significant Family History hyperlipidemia 07/05/2015 None Advance Directives No Advance Directive data Encounters Encounter Performer Location Codes Date [id number]) [id number] EST. PATIENT, LEVEL IV Diagnosis: Essential (primary) hypertension[ICD10: I10] Diagnosis: Cervicalgia[ICD10: M54.2] Diagnosis: Myalgia[ICD10: M79.1] Kathy Espinosa MD, [facility] CPT-4: 13573 10/07/2017 ([id number]) 43680 EST. PATIENT, LEVEL IV Diagnosis: Essential (primary) hypertension[ICD10: I10] Diagnosis: Major depressive disorder, recurrent, mild[ICD10: F33.0] Diagnosis: Generalized anxiety disorder[ICD10: F41.1] Kathy Espinosa MD, [facility] CPT-4: 24925 06/03/2017 ([id number]) 87250 EST. PATIENT, LEVEL IV Diagnosis: Essential (primary) hypertension[ICD10: I10] Diagnosis: Mixed hyperlipidemia[ICD10: E78.2] Diagnosis: Low back pain[ICD10: M54.5] Kathy Espinosa MD, [facility] CPT- 4: 39309 03/19/2017 [id number]) 04670 EST. PATIENT, LEVEL III Diagnosis: Pain in right lower leg[ICD10: M79.661] Diagnosis: Localized edema[ICD10: R60.0] Diagnosis: Contusion of right lower leg, initial encounter[ICD10: S80.11XA] Amanda Espinosa MD, [facility] CPT-4: 28782 01/21/2017 ([id number]) 67201 EST. PATIENT, LEVEL IV Diagnosis: Mixed hyperlipidemia[ICD10: E78.2] Diagnosis: Major depressive disorder, recurrent, moderate[ICD10: F33.1] Kathy Espinosa MD, [facility] CPT-4: 96503 12/04/2016 ([id number]) 08816 EST. 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 PATIENT, LEVEL III Diagnosis: Acute laryngopharyngitis[ICD10: J06.0] Diagnosis: Other allergic rhinitis[ICD10: J30.89] Alba Espinosa MD, [facility] CPT-4: 14249 09/17/2016 56382 EST. PATIENT, LEVEL III Diagnosis: Contusion of right lower leg, initial encounter[ICD10: S80.11XA] Alba Espinosa MD, [facility] CPT-4: 58482 08/03/2016 ([id number]) 74287 EST. PATIENT, LEVEL IV Diagnosis: Essential (primary) hypertension[ICD10: I10] Diagnosis: Mixed hyperlipidemia[ICD10: E78.2] Diagnosis: Acute recurrent maxillary sinusitis[ICD10: J01.01] Diagnosis: Chronic obstructive pulmonary disease with (acute) exacerbation[ICD10 : J44.1] Kathy Espinosa MD, [facility] CPT-4: 20417 2015 ([id number]) 25208 EST. PATIENT, LEVEL IV Diagnosis: Essential (primary) hypertension[ICD10: I10] Diagnosis: Gastro-esophageal reflux disease without esophagitis[ICD10: K21.9] Diagnosis: Generalized anxiety disorder[ICD10: F41.1] Diagnosis: Major depressive disorder, recurrent, mild[ICD10: F33.0] Kathy Espinosa MD [facility] CPT-4: 18845 03/22/2016 ([id number]) 97756 EST. PATIENT, LEVEL IV Diagnosis: Essential (primary) hypertension[ICD10: I10] Diagnosis: Coronary angioplasty status[ICD10: Z98.61] Diagnosis: Hyperlipidemia, unspecified[ICD10: E78.5] Diagnosis: Major depressive disorder, recurrent, moderate[ICD10: F33.1] Kathy Espinosa MD, [facility] CPT-4: 47703 01/12/2016 ([id number]) 80473 EST. PATIENT, LEVEL IV Diagnosis: Essential (primary) hypertension[ICD10: I10] Diagnosis: Gastro-esophageal reflux disease without esophagitis[ICD10: K21.9] [facility] CPT-4: 39569 10/13/2015 ([id number]) 26871 EST. PATIENT, LEVEL IV Diagnosis: Gastro-esophageal reflux disease without esophagitis[ICD10: K21.9] Diagnosis: Essential (primary) hypertension[ICD10: I10] Diagnosis: Coronary angioplasty status[ICD10: Z98.61] [facility] CPT-4: 41527 09/13/2015 ([id number]) OFFICE VISIT, NEW - LEVEL 4 Diagnosis: Hyperlipidemia, unspecified[ICD10: E78.5] Diagnosis: Personal history of other diseases of the circulatory system[ICD10: Z86.79] Diagnosis: Unspecified osteoarthritis, unspecified site[ICD10: M19.90] Diagnosis: Polyneuropathy, unspecified[ICD10: G62.9] [facility] CPT-4: 96020 07/05/2015 Plan of Care Planned Activity Notes Codes Status Date Visit Plan: Hypertension - well controlled - continue with current medications, continue with no added salt diet. Pt has been encouraged to exercise daily. The pt has been advised to call the office if there are any acute concerns about change in blood pressure readings at home. Cervicalgia - continue with stretching of neck at home. Myalgias - lipitor causing pain - stop the lipitor start on crestor after two weeks. 10/07/2017 Patient Education: Patient Medication Summary Completed 10/07/2017 Visit Plan: Hypertension - well controlled - continue with current medications, continue with no added salt diet. Pt has been encouraged to exercise daily. The pt has been advised to call the office if there are any acute concerns about change in blood pressure readings at home. Chronic Anxiety/ Depression - - recommended pt to restart on Lexapro 20mg at bedtime. Pt does not take the flu shots 06/03/2017 Appointment: Kathy Espinosa WPtel: [address] [place], [place] [id number] (15 min) Moderate 06/03/2017 Patient Education: Patient Medication Summary Completed 06/03/2017 Patient Education: Obesity Completed 06/03/2017 Appointment: [phone] [facility] (15 min) Moderate 05/22/2017 Visit Plan: Hypertension - well controlled - continue with current medications, continue with no added salt diet. Pt has been encouraged to exercise daily. The pt has been advised to call the office if there are any acute concerns about change in blood pressure readings at home. Hyperlipidemia - pt has been counseled about appropriate diet, exercise, and need for low fat food choices. I have discussed the need for the patient to take medications as prescribed. If the patient has negative side effects from the medication, they are to CALL the office and not abruptly discontinue the medication without discussion with a practitioner in the office. We will check labs in 3-6 months for follow up on the patient's chronic medical problem and to assure normal liver response to medications. Low back pain - check xray of back 03/19/2017 Appointment: [facility]el[facility] [phone] [facility] (15 min) Moderate 03/19/2017 Patient Education: Patient Medication Summary Completed 03/19/2017 Patient Education: Obesity Completed 03/19/2017 Visit Plan: Contusion-right lower leg-improving but pain and swelling in right lower extremity has worsened-will obtain venous doppler to r/o DVT-continues ice, elevation, anti inflammatories as directed. Instructed patient and his we will call them with the results of the venous doppler. 01/21/2017 Appointment: [facility] [phone] [id number] [place] (15 min) Moderate 01/21/2017 Patient Education: Patient Medication Summary Completed 01/21/2017 Patient Education: Obesity Completed 01/21/2017 Visit Plan: Hyperlipidemia - pt has been counseled about appropriate diet, exercise, and need for low fat food choices. I have discussed the need for the patient to take medications as prescribed. If the patient has negative side effects from the medication, they are to CALL the office and not abruptly discontinue the medication without discussion with a practitioner in the office. We will check labs in 3-6 months for follow up on the patient's chronic medical problem and to assure normal liver response to medications. Arthritis- occasionally uncontrolled symptoms- recommend pt to take antiinflammatory as directed for pain control. Use tylenol for break through pain symptoms. Chronic Depression and anxiety - the pt has symptoms of chronic anxiety and depression that have been fairly well controlled since the last office visit. The pt has expected periods of exacerbation with abatement of the symptoms with change in situational exposure. No change in current medications. 12/04/2016 Appointment: FranciscaKathy WPtel: [phone] [facility] (15 min) Moderate 12/04/2016 Patient Education: Patient Medication Summary Completed 12/04/2016 Visit Plan: Medicare Exam - today we discussed the patients past history, immunizations, preventative exams/evaluations - colonoscopy, fecal occult blood testing, routine labs for renal function, glucose, cholesterol, osteoporosis evaluations, cardiovascular testing and cancer screenings. We have also discussed mental health and the signs/symptoms of depression. The patient was advised of home safety evaluations and the need to make sure that as the aging process continues, we need to be aware of different ways to make the home a safer place to reside. The patient has also been counseled that exercise is necessary - and of utmost importance as we age to help decrease fall risk and to maintain independece in the home. Today we discussed the need for the patient to create paperwork for Advanced directives as well as for the patient to provide this office with a copy of her DOPA paperwork for health care surrogate. 11/16/2016 Appointment: Alba Fajardo WPtel: [phone] [facility] [facility] - Annual Wellness Visit 11/16/2016 Patient Education: Patient Medication Summary Completed 11/16/2016 Visit Plan: Anxiety - the patient has uncontrolled anxiety and will benefit from an SSRI on a daily basis to attempt control of the symptoms of anxiety (tachycardia, overwhelming sensations, stress, insomnia, etc ). I also believe that the patient will benefit from very low dose of prn benzodiazepine. Pt is aware of the risks and benefits of treatment with the above medications. start on buspirone - 5mg one pill twice daily. call the office on SATURDAY to let us know if the medication is helping with your anxiety. Hypertension - uncontrolled - the patient's medications have been modified as documented in the visit note. The patient has been counseled to cut back on salt in diet for a no added salt diet, low fat diet, start an exercise program with low weight bearing exercises and higher aerobic activity for heart health. The patient is to check blood pressure readings as an outpatient and either fax , call, or email the readings to the office next week for practitioner to review. The pt is to call for acute concerns. 11/14/2016 Appointment: Kathy Espinosa WPtel: [phone] [facility] (15 min) Moderate 11/14/2016 Patient Education: Patient Medication Summary Completed 11/14/2016 Patient Education: Obesity Completed 11/14/2016 Appointment: Kathy Espinosa WPtel: [phone] [facility] (15 min) Moderate 10/24/2016 Visit Plan: URI - Pt advised to increase fluids, vitamin C. Discussed natural and expected course of this diagnosis and need to alert me if symptoms do not follow expected course, or if any worse. RX sent to patient' s pharmacy. Allergies - chronic - recommended pt to use allergy medication as prescribed. Pt has been counseled as to the appropriate use of the medication. Pt to call if allergy symptoms are not controlled with the medication. If using nasal spray, instructions as follows: Nasal spray- use twice daily, one spray per nostril twice daily, after 30 minutes, rinse out nose with saline spray.. Use opposite hand per nostril to spray in the nasal steroid allergy spray. 09/17/2016 Patient Education: Patient Medication Summary Completed 09/17/2016 Patient Education: Obesity Completed 09/17/2016 Visit Plan: Hematoma, right lower leg, anterior - Pt is to monitor symptoms if they change or worsen pt is to notify clinic. Notify clinic with any redness, streaking, warmth, edema, shortness of breath or pain. 08/03/2016 Appointment: Amanda Romero WPtel: [phone] [phone] [place] (15 min) Moderate 08/03/2016 Patient Education: Patient Medication Summary Completed 08/03/2016 Patient Education: Obesity Completed 08/03/2016 Visit Plan: Hypertension - well controlled - continue with current medications, continue with no added salt diet. Pt has been encouraged to exercise daily. The pt has been advised to call the office if there are any acute concerns about change in blood pressure readings at home. COPD EXACERBATION - COPD is a chronic problem for this patient, however, the pt is experiencing an acute exacerbation of the COPD. Pt is to receive appropriate treatment as an out patient, but the pt is aware that if symptoms worsen or do not improve, to call [facility] for instructions, or go to the EMERGENCY ROOM if the symptoms are beyond acute control with rescue medications. We have reviewed chronic treatment strategy, symptom control, and plans for acute exacerbations. No changes today to the current treatment plan as the patient is stable, monitor for acute changes. Sinusitis - Pt has acute infection - pain in face, maxillary region, Pt informed to use decongestant, RX given to patient, sinus rinses also recommended. Call if symptoms do not show improvement. 07/25/2016 Appointment: Kathy Espinosa WPtel: [address] [place], [place] [id number] (15 min) Moderate 07/25/2016 Patient Education: Patient Medication Summary Completed 07/25/2016 Patient Education: Obesity Completed 07/25/2016 Visit Plan: Hypertension - well controlled - continue with current medications, continue with no added salt diet. Pt has been encouraged to exercise daily. The pt has been advised to call the office if there are any acute concerns about change in blood pressure readings at home. Esophageal Reflux - the patient has been counseled against excessive intake of caffeine, spicy foods, peppermint, and cinnamon - all of which can exacerbate esophageal reflux. The patient is to take medications as prescribed and call the office if the symptoms are not improving. Chronic Depression and anxiety - the pt has symptoms of chronic anxiety and depression that have been fairly well controlled since the last office visit. The pt has expected periods of exacerbation with abatement of the symptoms with change in situational exposure. No change in current medications. 03/22/2016 Patient Education: Patient Medication Summary Completed 03/22/2016 Patient Education: Obesity Completed 03/22/2016 Visit Plan: Hypertension - well controlled - continue with current medications, continue with no added salt diet. Pt has been encouraged to exercise daily. The pt has been advised to call the office if there are any acute concerns about change in blood pressure readings at home. Hyperlipidemia - pt has been counseled about appropriate diet, exercise, and need for low fat food choices. I have discussed the need for the patient to take medications as prescribed. If the patient has negative side effects from the medication, they are to CALL the office and not abruptly discontinue the medication without discussion with a practitioner in the office. We will check labs in 3-6 months for follow up on the patient's chronic medical problem and to assure normal liver response to medications. Chronic Depression and anxiety - the pt has symptoms of chronic anxiety and depression that have been fairly well controlled since the last office visit. The pt has expected periods of exacerbation with abatement of the symptoms with change in situational exposure. No change in current medications. 01/12/2016 Appointment: Kathy Espinosa WPtel: [facility]3 [facility] (15 min) Moderate 01/12/2016 Patient Education: Patient Medication Summary Completed 01/12/2016 Patient Education: Obesity Completed 01/12/2016 Patient Education: Hypertension Completed 01/12/2016 Appointment: Kathy Espinosa WPtel: [facility]5 [facility] (15 min) Moderate 12/01/2015 Visit Plan: Hypertension - well controlled - continue with current medications, continue with no added salt diet. Pt has been encouraged to exercise daily. The pt has been advised to call the office if there are any acute concerns about change in blood pressure readings at home. Esophageal Reflux - the patient has been counseled against excessive intake of caffeine, spicy foods, peppermint, and cinnamon - all of which can exacerbate esophageal reflux. The patient is to take medications as prescribed and call the office if the symptoms are not improving. 10/13/2015 Appointment: Kathy Espinosa WPtel: [facility]7 [id number] (15 min) Moderate 10/13/2015 Patient Education: Patient Medication Summary Completed 10/13/2015 Patient Education: Hypertension Completed 10/13/2015 Visit Plan: Hypertension - well controlled - continue with current medications, continue with no added salt diet. Pt has been encouraged to exercise daily. The pt has been advised to call the office if there are any acute concerns about change in blood pressure readings at home. Esophageal Reflux - the patient has been counseled against excessive intake of caffeine, spicy foods, peppermint, and cinnamon - all of which can exacerbate esophageal reflux. The patient is to take medications as prescribed and call the office if the symptoms are not improving. INCREASE THE PANTOPRAZOLE TO 40MG TWICE DAILY 09/13/2015 Appointment: Kathy Espinosa WPtel: [facility]1 [facility]66[facility] (15 min) Moderate 09/13/2015 Patient Education: Patient Medication Summary Completed 09/13/2015 Patient Education: Hypertension Completed 09/13/2015 Appointment: Kathy Espinosa WPtel: [facility]0 [facility]66[facility] (15 min) Moderate 08/09/2015 Visit Plan: Hyperlipidemia - pt has been counseled about appropriate diet, exercise, and need for low fat food choices. I have discussed the need for the patient to take medications as prescribed. If the patient has negative side effects from the medication, they are to CALL the office and not abruptly discontinue the medication without discussion with a practitioner in the office. We will check labs in 3-6 months for follow up on the patient's chronic medical problem and to assure normal liver response to medications. Arthritis- occasionally uncontrolled symptoms- recommend pt to take antiinflammatory as directed for pain control. Use tylenol for break through pain symptoms. CAD - continue with ASA, plavix and lipitor. 07/05/2015 Appointment: Kathy Espinosa WPtel: [facility]6 [facility] New Patient 07/05/2015 Patient Education: Patient Medication Summary Completed 07/05/2015 Referral: Heber Almanza Referral Appointment Requested Referral: Heber Almanza Pt's informed that referral paperwork sent. If they do not hear anything back by next Mon/Tues to let me know. Completed Instructions Comment INCREASE THE PANTOPRAZOLE TO 40MG TWICE DAILY . Hypertension - well controlled - continue with current medications, continue with no added salt diet. Pt has been encouraged to exercise daily. The pt has been advised to call the office if there are any acute concerns about change in blood pressure readings at home. Esophageal Reflux - the patient has been counseled against excessive intake of caffeine, spicy foods, peppermint, and cinnamon - all of which can exacerbate esophageal reflux. The patient is to take medications as prescribed and call the office if the symptoms are not improving. INCREASE THE PANTOPRAZOLE TO 40MG TWICE DAILY - books about weight loss - "the wild diet" - author - makayla marks - and "grain brain" - author - Dr. Niko Márquez . Hypertension - well controlled - continue with current medications, continue with no added salt diet. Pt has been encouraged to exercise daily. The pt has been advised to call the office if there are any acute concerns about change in blood pressure readings at home. Hyperlipidemia - pt has been counseled about appropriate diet, exercise, and need for low fat food choices. I have discussed the need for the patient to take medications as prescribed. If the patient has negative side effects from the medication, they are to CALL the office and not abruptly discontinue the medication without discussion with a practitioner in the office. We will check labs in 3-6 months for follow up on the patient's chronic medical problem and to assure normal liver response to medications. Low back pain - check xray of back probiotics - Culturelle, norton colon mitch, or generic . URI - Pt advised to increase fluids, vitamin C. Discussed natural and expected course of this diagnosis and need to alert me if symptoms do not follow expected course, or if any worse. RX sent to patient's pharmacy. Allergies - chronic - recommended pt to use allergy medication as prescribed. Pt has been counseled as to the appropriate use of the medication. Pt to call if allergy symptoms are not controlled with the medication. If using nasal spray, instructions as follows: Nasal spray- use twice daily, one spray per nostril twice daily, after 30 minutes, rinse out nose with saline spray.. Use opposite hand per nostril to spray in the nasal steroid allergy spray. we will send a referral to [facility]'s for physical therapy for your neck . Hypertension - well controlled - continue with current medications, continue with no added salt diet. Pt has been encouraged to exercise daily. The pt has been advised to call the office if there are any acute concerns about change in blood pressure readings at home. Chronic Anxiety/Depression - - recommended pt to restart on Lexapro 20mg at bedtime. Pt does not take the flu shots decrease the pantoprazole to one time daily at night take gas-ex 30 minutes before meals and bedtime. . Hypertension - well controlled - continue with current medications, continue with no added salt diet. Pt has been encouraged to exercise daily. The pt has been advised to call the office if there are any acute concerns about change in blood pressure readings at home. Esophageal Reflux - the patient has been counseled against excessive intake of caffeine, spicy foods, peppermint, and cinnamon - all of which can exacerbate esophageal reflux. The patient is to take medications as prescribed and call the office if the symptoms are not improving. start on buspirone - 5mg one pill twice daily. call the office on SATURDAY to let us know if the medication is helping with your anxiety. . Anxiety - the patient has uncontrolled anxiety and will benefit from an SSRI on a daily basis to attempt control of the symptoms of anxiety (tachycardia, overwhelming sensations, stress, insomnia, etc). I also believe that the patient will benefit from very low dose of prn benzodiazepine. Pt is aware of the risks and benefits of treatment with the above medications. start on buspirone - 5mg one pill twice daily. call the office on SATURDAY to let us know if the medication is helping with your anxiety. Hypertension - uncontrolled - the patient's medications have been modified as documented in the visit note. The patient has been counseled to cut back on salt in diet for a no added salt diet, low fat diet, start an exercise program with low weight bearing exercises and higher aerobic activity for heart health. The patient is to check blood pressure readings as an outpatient and either fax , call, or email the readings to the office next week for practitioner to review. The pt is to call for acute concerns. . Hyperlipidemia - pt has been counseled about appropriate diet, exercise, and need for low fat food choices. I have discussed the need for the patient to take medications as prescribed. If the patient has negative side effects from the medication, they are to CALL the office and not abruptly discontinue the medication without discussion with a practitioner in the office. We will check labs in 3-6 months for follow up on the patient's chronic medical problem and to assure normal liver response to medications. Arthritis- occasionally uncontrolled symptoms- recommend pt to take antiinflammatory as directed for pain control. Use tylenol for break through pain symptoms. Chronic Depression and anxiety - the pt has symptoms of chronic anxiety and depression that have been fairly well controlled since the last office visit. The pt has expected periods of exacerbation with abatement of the symptoms with change in situational exposure. No change in current medications. . Medicare Exam - today we discussed the patients past history, immunizations, preventative exams/evaluations - colonoscopy, fecal occult blood testing, routine labs for renal function, glucose, cholesterol, osteoporosis evaluations, cardiovascular testing and cancer screenings. We have also discussed mental health and the signs/symptoms of depression. The patient was advised of home safety evaluations and the need to make sure that as the aging process continues, we need to be aware of different ways to make the home a safer place to reside. The patient has also been counseled that exercise is necessary - and of utmost importance as we age to help decrease fall risk and to maintain independece in the home. Today we discussed the need for the patient to create paperwork for Advanced directives as well as for the patient to provide this office with a copy of her DOPA paperwork for health care surrogate. . Hypertension - well controlled - continue with current medications, continue with no added salt diet. Pt has been encouraged to exercise daily. The pt has been advised to call the office if there are any acute concerns about change in blood pressure readings at home. COPD EXACERBATION - COPD is a chronic problem for this patient, however, the pt is experiencing an acute exacerbation of the COPD. Pt is to receive appropriate treatment as an out patient, but the pt is aware that if symptoms worsen or do not improve, to call [facility] for instructions, or go to the EMERGENCY ROOM if the symptoms are beyond acute control with rescue medications. We have reviewed chronic treatment strategy, symptom control, and plans for acute exacerbations. No changes today to the current treatment plan as the patient is stable, monitor for acute changes. Sinusitis - Pt has acute infection - pain in face, maxillary region, Pt informed to use decongestant, RX given to patient, sinus rinses also recommended. Call if symptoms do not show improvement. we will check a vitamin b12 level to see if there is any evidence of vitamin b deficiency that is causing nerve pain. we will also check a chest xray . Hyperlipidemia - pt has been counseled about appropriate diet, exercise, and need for low fat food choices. I have discussed the need for the patient to take medications as prescribed. If the patient has negative side effects from the medication, they are to CALL the office and not abruptly discontinue the medication without discussion with a practitioner in the office. We will check labs in 3-6 months for follow up on the patient's chronic medical problem and to assure normal liver response to medications. Arthritis- occasionally uncontrolled symptoms- recommend pt to take antiinflammatory as directed for pain control. Use tylenol for break through pain symptoms. CAD - continue with ASA, plavix and lipitor. venous doppler right lower extremity . Contusion-right lower leg-improving but pain and swelling in right lower extremity has worsened-will obtain venous doppler to r/o DVT-continues ice, elevation, anti inflammatories as directed. Instructed patient and his we will call them with the results of the venous doppler. Qunol - or co-enzyme q10 - -take one pill daily with cholesterol medication. Stop lipitor Wait 14 days before starting the new cholesterol medication - CRESTOR - . Hypertension - well controlled - continue with current medications, continue with no added salt diet. Pt has been encouraged to exercise daily. The pt has been advised to call the office if there are any acute concerns about change in blood pressure readings at home. Cervicalgia - continue with stretching of neck at home. Myalgias - lipitor causing pain - stop the lipitor start on crestor after two weeks. . Hypertension - well controlled - continue with current medications, continue with no added salt diet. Pt has been encouraged to exercise daily. The pt has been advised to call the office if there are any acute concerns about change in blood pressure readings at home. Hyperlipidemia - pt has been counseled about appropriate diet, exercise, and need for low fat food choices. I have discussed the need for the patient to take medications as prescribed. If the patient has negative side effects from the medication, they are to CALL the office and not abruptly discontinue the medication without discussion with a practitioner in the office. We will check labs in 3-6 months for follow up on the patient's chronic medical problem and to assure normal liver response to medications. Chronic Depression and anxiety - the pt has symptoms of chronic anxiety and depression that have been fairly well controlled since the last office visit. The pt has expected periods of exacerbation with abatement of the symptoms with change in situational exposure. No change in current medications. . Hypertension - well controlled - continue with current medications, continue with no added salt diet. Pt has been encouraged to exercise daily. The pt has been advised to call the office if there are any acute concerns about change in blood pressure readings at home. Esophageal Reflux - the patient has been counseled against excessive intake of caffeine, spicy foods, peppermint, and cinnamon - all of which can exacerbate esophageal reflux. The patient is to take medications as prescribed and call the office if the symptoms are not improving. Chronic Depression and anxiety - the pt has symptoms of chronic anxiety and depression that have been fairly well controlled since the last office visit. The pt has expected periods of exacerbation with abatement of the symptoms with change in situational exposure. No change in current medications. . Hematoma, right lower leg, anterior - Pt is to monitor symptoms if they change or worsen pt is to notify clinic. Notify clinic with any redness, streaking, warmth, edema, shortness of breath or pain.
[2018-02-25] MEDS ORDERED: LIDOCAINE 1% INJ 20 ML 20 ML VIAL ONE (09:00)
[2018-02-25] MEDS ORDERED: HEParin (CATH LAB) 2,000 ML IV ONE (09:00)
[2018-02-25] MEDS ORDERED: NS IV 1000 ML 1,000 ML ONE (09:00)
[2018-02-25] MEDS ORDERED: NS IV 1000 ML 1,000 ML IV SCH ×2 (09:15→14:11)
[2018-02-25 09:27] LABS: HEMOGLOBIN 14.6 G/DL (13.3-17.7); MEAN PLATELET VOLUME 10.7 FL (7.4-10.4); RED BLOOD COUNT 4.95 10^6/uL (4.35-5.85); RED CELL DISTRIBUTION WIDTH 13.3 % (10.0-14.5); WHITE BLOOD COUNT 4.9 10^3/uL (4.3-11.0)
[2018-02-25] MEDS ORDERED: ESCI20TA45 PO (09:45)
[2018-02-25] MEDS ORDERED: ASCO100025 PO (09:45)
[2018-02-25] MEDS ORDERED: B CO1TAB4 PO (09:45)
[2018-02-25] MEDS ORDERED: ROSU10TA26 PO (09:45)
[2018-02-25 09:49] LABS: PROTHROMBIN TIME PATIENT 13.3 SEC (12.2-14.7)
[2018-02-25 09:55] LABS: ALANINE AMINOTRANSFERASE 21 U/L (0-55); ALBUMIN 4.1 GM/DL (3.2-4.5); ALKALINE PHOSPHATASE 80 U/L (40-136); BILIRUBIN,TOTAL 0.8 MG/DL (0.1-1.0); BUN/CREATININE RATIO 21; CALCIUM 9.2 MG/DL (8.5-10.1); CARBON DIOXIDE 25 MMOL/L (21-32); CHLORIDE 109 MMOL/L (98-107); CHOLESTEROL 158 MG/DL (< 200); CREATININE SERUM 1.11 MG/DL (0.60-1.30); GFR ESTIMATED > 60; GLUCOSE 124 MG/DL (70-105); HDL CHOLESTEROL 40 MG/DL (40-60); POTASSIUM 4.3 MMOL/L (3.6-5.0); SODIUM 142 MMOL/L (135-145); TOTAL PROTEIN 6.9 GM/DL (6.4-8.2); TRIGLYCERIDES 131 MG/DL (<150); VLDL CHOLESTEROL 26 MG/DL (5-40)
[2018-02-25] MEDS ORDERED: fentaNYL INJECTION 100 MCG/2 ML AMP ONE (12:29)
[2018-02-25] MEDS ORDERED: diphenhydrAMINE 50 MG/ML INJ (BENADRYL) ONE (12:29)
[2018-02-25] MEDS ORDERED: MIDAZOLAM 5 MG/5 ML (VERSED) VIAL ONE (12:29)
--- NOTE | 2018-02-25 12:36 | Cardiac Procedure Note-CS/ASA ---
Pre-Procedure Note Pre-Op Procedure Note H&P Reviewed The H&P was reviewed, patient examined and no changes noted. Date H&P Reviewed: Feb 25, 2018 Time H&P Reviewed: 12:35 Conscious Sedation Pre-Proced Time Reviewed: 12:35 ASA Class: 3 Airway Mallampati Classification: ([place] appropriate class) I. II. III, IV Lungs Heart ASA score ASA 1: a normal healthy patient ASA 2: a patient with a mild systemic disease (mid diabetes, controlled hypertension, obesity ASA 3: a patient with a severe systemic disease that limits activity (angina , COPD, prior Myocardial infarction) ASA 4: a patient with an incapacitating disease that is a constant threat to life (CHF, renal failure) ASA 5: a moribund patient not expected to survive 24 hrs. (ruptured aneurysm) ASA 6: a declared brain patient whose organs are being harvested. For emergent operations, add the letter E after the classification Grade 3 Sedation Plan: Analgesia, Amnesia, Plan communicated to team members, Discussed options with patient/fam, Discussed risks with patient/fam Note The patient is an appropriate candidate to undergo the planned procedure, sedation, and anesthesia. The patient immediately re-assessed prior to indication. SAMIR CONNOLLY MD FACP FACC CCDS Feb 25, 2018 12:36
[2018-02-25] MEDS ORDERED: PATIENT MAY USE OWN MEDS, ALL PO SCH (14:15)
[2018-02-25] MEDS ORDERED: METO-352 PO (14:20)
--- NOTE | 2018-02-25 14:21 | Discharge Inst-Cardiology ---
Discharge Inst-Cardiac Discharge Medications New Medications: Metoprolol Succinate (Toprol Xl) 50 Mg Tab.er.24h 50 MG PO DAILY, #90 TAB 3 Refills Continued Medications: Ascorbic Acid (Vitamin C) 1,000 Mg Tablet.er 1000 MG PO DAILY, TAB Aspirin (Aspirin EC) 81 Mg Tablet.dr 81 MG PO HS B Complex with Vitamin C (B-Complex with Vitamin C) 1 Each Tablet 1 EACH PO DAILY, TAB Clopidogrel Bisulfate (Clopidogrel) 75 Mg Tablet 75 MG PO DAILY Escitalopram Oxalate (Escitalopram Oxalate) 20 Mg Tablet 30 MG PO HS, TAB TAKE 1 AND 1/2 (20MG) TABLETS AT BEDTIME FOR A TOTAL OF 30MG Folic Acid (Folic Acid) 0.4 Mg Tablet 0.4 MG PO DAILY Pantoprazole Sodium (Pantoprazole Sodium) 40 Mg Tablet.dr 40 MG PO DAILY Rosuvastatin Calcium (Rosuvastatin Calcium) 10 Mg Tablet 10 MG PO EVERY OTHER DAY, TAB Discontinued Medications: Naproxen (Naproxen) 500 Mg Tablet 500 MG PO BID PRN for PAIN SAMIR CONNOLLY MD FACP FACC CCDS Feb 25, 2018 14:21
--- NOTE | 2018-02-25 14:22 | Discharge Inst-Post CATH ---
Discharge Inst-CATH Post Cardiac Cath D/C Inst Follow Up/Plan F/u with Dr Romero in 1-2 weeks CARDIAC CATH DISCHARGE INSTRUCTIONS *Hold Metformin for 48 hours post heart cath. ACTIVITY * Go Home directly and rest. * Limit activity of the leg (or wrist if it was used) for 7 days including aerobics, swimming, jogging, bicycling, etc. * Restrict stair-climbing for 7 days if possible, if not, climb up with your non -cath leg, then bring together on the same step. * Avoid lifting, pushing, pulling or excessive movement of the affected extremity for 7 days. * Customary sexual activity may be resumed after 2 days-use caution not to use a position that strains or causes pain to the affected extremity. * No driving for 24 hours. * NO SMOKING. * Avoid straining for bowel movements for 7 days. * Gentle walking on level ground is allowed. * Returning to work will depend on the type of procedure and the results. Your doctor will discuss this with you. CALL YOUR DOCTOR FOR ANY OF THE FOLLOWING: *If bleeding from the puncture site occurs- Apply gentle pressure to site with clean cloth and call your doctor or EMS. * If a knot or lump forms under the skin, increases in size, or causes pain. * If bruising appears to be worsening or moving further down your leg instead of disappearing. * Temperature above 101 F. CARE OF YOUR GROIN INCISION; * Bruising or purple discoloration of the skin near the puncture site is common. * You may shower only, no bathtub bathing for 5 days. Be careful to avoid slipping as your leg may feel stiff. * If a closure device was used on your femoral artery, please see the attached guide regarding care of the device and your leg. * REMOVE the dressing from your groin the next day after your procedure in the shower. CARE OF YOUR WRIST INCISION; * Bruising or purple discoloration of the skin near the puncture site is common. * You may shower. * DO NOT submerge wrist. * Remove dressing in 24 hours. SAMIR ROMERO MD [facility] CCDS Feb 25, 2018 14:22
[2018-02-25] MEDS ORDERED: meTOproloL SUCCINATE 50 MG (TOPROL XL) TAB PO SCH (14:30)
--- NOTE | 2018-02-25 19:14 | CARDIAC CATHETERIZATION ---
DATE OF SERVICE: 02/25/2018 The patient is a 77-year-old gentleman who is known to have coronary artery disease. 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 A recent myocardial perfusion imaging study was indicative of inferolateral ischemia and cardiac catheterization was carried out today after having obtained an informed consent. PROCEDURE: He was brought to the cardiac catheterization laboratory in a fasting state. Right groin was prepared and draped in the usual sterile fashion. Lidocaine 1% used for local anesthesia. Modified Seldinger technique was used to advance a 5-Algerian sheath in the right femoral artery. A 5-Algerian JL4 catheter was used for left coronary angiography. 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 A 5-Algerian JR4 catheter was used for angiography of the aortocoronary grafts, as well. We used a 5-Algerian pigtail catheter to carry out left heart catheterization, left ventricular angiography. The pigtail catheter was pulled back to the aortic root and aortic root angiography was performed. Angiography of the right femoral artery was carried through the sheath. Mynx was used to achieve hemostasis. He tolerated the procedure well. HEMODYNAMICS: Left ventricular end-diastolic pressure following coronary angiography was 18 mmHg. There was no significant pressure gradient on pullback across the aortic valve. Ascending aortic pressure was 141/69 with a mean of 97 mmHg. LEFT VENTRICULAR ANGIOGRAPHY: Left ventricular angiography was carried out in the right anterior oblique projection. Global left ventricular systolic function is normal. No regional wall motion abnormality was seen in this view. Left ventricular ejection fraction is approximately 60-65%. There does not appear to be significant mitral regurgitation. CORONARY ANGIOGRAPHY: A single left coronary artery is seen which is the left anterior descending artery. In the mid vessel, there is approximately 40% stenosis that also involves the origin of the second diagonal branch. 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 This artery is occluded in its ostial/proximal portion. The right coronary artery is occluded in its mid portion. SAPHENOUS VEIN GRAFT ANGIOGRAPHY: The most caudal graft is a saphenous vein graft to a diagonal branch of the left anterior descending artery. This is patent and free of significant disease. The more cephalic grafts are aortocoronary grafts to the right coronary artery. One graft is stated to be sequential to the distal left circumflex artery and to the distal posterolateral branch of the right coronary artery. This graft is patent with a good runoff, but the limb to the left circumflex artery appears occluded because flow is not seen in the distal left circumflex artery. Retrograde to the insertion of this graft in RCA posterolateral, there is considerable disease in the distal right coronary artery, but this does not appear amenable to percutaneous intervention because the vessels are tortuous and are of a small caliber. The other aortocoronary graft is to the posterior descending branch of right coronary artery. This was also patent with good flow. Again, retrograde to the insertion of this graft, the right coronary artery does exhibit considerable disease, but does not appear amenable to intervention because of small vessel caliber and tortuosity. CONCLUSIONS: 1. 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 The right coronary artery is occluded in its mid portion. The left anterior descending artery has moderate mid vessel disease. 2. Patent saphenous vein graft to a high diagonal branch of the left anterior descending artery. 3. Patent saphenous vein graft to the posterior descending branch of the right coronary artery. 4. Sequential saphenous vein graft that appears occluded to the distal left circumflex, but is patent to the distal posterolateral branch of the right coronary artery. 5. Well preserved global left ventricular systolic function with ejection fraction 60-65%. 6. Mild to moderate elevation of left ventricular end-diastolic pressure. 7. No significant mitral regurgitation. DISCUSSION AND RECOMMENDATIONS: Based on the results of the study, it appears appropriate to continue a conservative approach with focus on risk factor modification. Outpatient followup is advised. Job ID: [id number] DocumentID: [id number] Dictated Date: 02/25/2018 13:48:16 Television News Reporter Date: 02/25/2018 19:13:29 Dictated By: SAMIR CONNOLLY MD, MA, FACP, FACC, MTDD
== END 2018-02-25 17:50 | disposition home or self-care (01) ==
LOC: CATH 08:47 → SURG 14:04 → CATH 17:50
PROVIDERS: ATTEND Internal Medicine Cardiovascular Disease
DX: I25.10 Atherosclerotic heart disease of native coronary artery without angina pectoris (principal); I25.5 Ischemic cardiomyopathy; E78.5 Hyperlipidemia, unspecified; R73.01 Impaired fasting glucose; K21.9 Gastro-esophageal reflux disease without esophagitis; G47.33 Obstructive sleep apnea (adult) (pediatric); E66.9 Obesity, unspecified; Z68.36 Body mass index [BMI] 36.0-36.9, adult; Z79.02 Long term (current) use of antithrombotics/antiplatelets; Z79.82 Long term (current) use of aspirin; Z79.899 Other long term (current) drug therapy; Z95.1 Presence of aortocoronary bypass graft; Z95.5 Presence of coronary angioplasty implant and graft; Z87.891 Personal history of nicotine dependence
CPT/HCPCS: 36415; 80053; 80061; 85027; 85610; 85730; 87081; 93459

== ENCOUNTER → 2018-09-22 | Outpatient (CLI) | payer MEDICARE, OTHER ==
[~2018-09-22] MED LIST changes: +ASCO100025 PO; +B CO1TAB4 PO; +ESCI20TA45 PO; +METO-352 PO; -OXYC-202 PO; +OXYC1TAB12 PO; +ROSU10TA27 PO
--- NOTE | 2018-09-22 13:01 | Diagnostic Imaging Report ---
CLINICAL INDICATION: Patient with cervical spine stenosis or repair. Patient has left arm pain with tingling. EXAM: Axial CT scan of the cervical spine performed without IV contrast. Sagittal and coronal reformatted images are created. COMPARISON: CT angiogram of the neck dated 08/13/2016. FINDINGS: There are interval postop changes to the cervical spine with placement of C5 through C7 anterior cervical disc fusion with interbody metallic spacers. There is associated streak artifact and patient body habitus, which slightly limits evaluation of anatomical detail. There is no significant lucency adjacent to the hardware or hardware complication. There appears to be some degree of intervertebral bony development at the C6-C7 level and posteriorly involving the C5-C6 level. Again seen straightening of the cervical spine posture. C1-C2: There is slight progression of hypertrophic spurs involving the atlantoodontoid interval anteriorly. There is no significant central canal narrowing. C2-C3: Again seen left-sided uncinate spurs and moderate left facet arthropathy/hypertrophy which causes [id number] left neural foramen narrowing, which is stable. There is no significant right neural foramen narrowing or central canal narrowing. There is mild right facet arthropathy. C3-C4: There is interval development of a 2 mm of grade 1 anterolisthesis of C3 on C4. There is ikjqckuc-gk-mlohau left facet arthropathy and vipz-kk-cduhzmsz right facet arthropathy which has progressed. There is at least moderate left neural foramen narrowing and mild right neural foramen narrowing which has progressed. C4-C5: Again seen moderate right facet arthropathy/hypertrophy with stable moderate right neural foramen narrowing. There is no significant central canal or left neural foramen narrowing. C5-C6: There is interval correction of the previously seen diffuse disc bulge with improved intervertebral disc height. There are persistent hypertrophic bilateral uncinate spurs and posterior spurs. There is stable mild central canal narrowing, mild left neural foramen narrowing and moderate right neural foramen narrowing. C6-C7: There is interval correction of previously seen diffuse disc bulge with improved intervertebral disc height. There is persistent small bilateral uncinate spurs and posterior vertebral body spurs. There is no significant central canal narrowing. There is stable mild right neural foramen narrowing and no significant left neural foramen narrowing. There is no significant central canal narrowing. C7-T1: Unremarkable. IMPRESSION: 1: There is no interval acute cervical spine fracture. 2: There is interval postop changes with C5 through C7 anterior cervical disc fusion with no gross hardware complications. 3: There is interval development of grade 1 anterolisthesis of C2 on C3 with progression of bilateral facet arthropathy. There is now moderate- to-severe left neural foramen narrowing which has progressed. Dictated by: Dictated on workstation # [id number]
== END ==
LOC: RAD 11:36
PROVIDERS: ATTEND Orthopaedic Surgery Orthopaedic Surgery of the Spine
DX: M48.02 Spinal stenosis, cervical region (principal); M43.12 Spondylolisthesis, cervical region; M46.82 Other specified inflammatory spondylopathies, cervical region; M54.12 Radiculopathy, cervical region; Z98.1 Arthrodesis status
CPT/HCPCS: 72125

== ENCOUNTER → 2019-08-25 | Outpatient (CLI) | payer MEDICARE, OTHER ==
[~2019-08-25] MED LIST changes: +CYAN-41 PO; -CYAN10006 PO; -ROSU10TA27 PO; +ROSU10TA28 PO
--- NOTE | 2019-08-25 15:10 | Diagnostic Imaging Report ---
INDICATION: Cough and dyspnea. TIME OF EXAM: 2:22 p.m. COMPARISON: Correlation is made with prior chest from 05/11/2015. FINDINGS: Changes of median sternotomy and CABG are noted. Heart size is normal. Lungs are clear. The pulmonary vascularity is normal. No infiltrate, effusion, or pneumothorax is detected. There are postop changes in the lower cervical spine. IMPRESSION: No acute cardiopulmonary process is identified. Dictated by: Dictated on workstation # [id number]
== END ==
LOC: RAD 14:07
PROVIDERS: ATTEND Nurse Practitioner Family
DX: R05 Cough (principal); R06.00 Dyspnea, unspecified; Z98.890 Other specified postprocedural states
CPT/HCPCS: 71046

== ENCOUNTER 2020-04-12 20:11 | Emergency (ER) | payer MEDICARE, OTHER ==
[~2020-04-12] VITALS: Ht 69 cm; Wt 116.0 kg
[~2020-04-12 20:11] MED LIST changes: -TAMS0.4C98 PO; +TMSL.4C PO
[2020-04-12] MEDS ORDERED: NITROGLYCERIN 0.4 MG SL TABS BTL 25'S SL PRN (20:30)
[2020-04-12] MEDS ORDERED: ASPIRIN 81 MG CHEW (CHILDREN'S ASA) PO ONE (20:30)
[2020-04-12 20:33] LABS: BASOPHILS % (AUTO) 0 % (0-10); EOSINOPHILS # (AUTO) 0.1 10^3/uL (0.0-0.3); EOSINOPHILS % (AUTO) 2 % (0-10); HEMATOCRIT 46 % (40-54); HEMOGLOBIN 15.2 G/DL (13.3-17.7); LYMPHOCYTES # (AUTO) 2.1 X 10^3 (1.0-4.0); LYMPHOCYTES % (AUTO) 34 % (12-44); MEAN CORPUSCULAR HEMOGLOBIN 29 PG (25-34); MEAN CORPUSCULAR HGB CONC 33 G/DL (32-36); MEAN CORPUSCULAR VOLUME 87 FL (80-99); MEAN PLATELET VOLUME 11.3 FL (7.4-10.4); MONOCYTES # (AUTO) 0.5 X 10^3 (0.0-1.0); MONOCYTES % (AUTO) 8 % (0-12); NEUTROPHILS # (AUTO) 3.5 X 10^3 (1.8-7.8); NEUTROPHILS % (AUTO) 57 % (42-75); PLATELET COUNT 179 10^3/uL (130-400); RED CELL DISTRIBUTION WIDTH 13.6 % (10.0-14.5); WHITE BLOOD COUNT 6.1 10^3/uL (4.3-11.0)
--- NOTE | 2020-04-12 20:49 | NUR ---
pt was in excruciating pain while sitting up in be. He was holding his chest and unable to lift his legs up on the bed. Once we got the patient lying supine on the bed and he relaxed he states his pain is nearly gone. Pt refused nitro at this time.
[2020-04-12 20:51] LABS: INR 0.9 (0.8-1.4); PROTHROMBIN TIME PATIENT 12.5 SEC (12.2-14.7)
[2020-04-12 20:58] LABS: ALANINE AMINOTRANSFERASE 22 U/L (0-55); ALBUMIN 4.4 GM/DL (3.2-4.5); ALKALINE PHOSPHATASE 100 U/L (40-136); AMYLASE 56 U/L (25-125); BILIRUBIN,TOTAL 0.9 MG/DL (0.1-1.0); BUN/CREATININE RATIO 13; CALCIUM 9.3 MG/DL (8.5-10.1); CARBON DIOXIDE 23 MMOL/L (21-32); CHLORIDE 107 MMOL/L (98-107); CREATINE KINASE 156 U/L (30-200); GFR ESTIMATED 49; GLUCOSE 129 MG/DL (70-105); LIPASE 33 U/L (8-78); POTASSIUM 4.2 MMOL/L (3.6-5.0); SODIUM 143 MMOL/L (135-145); TOTAL PROTEIN 7.6 GM/DL (6.4-8.2)
[2020-04-12] MEDS ORDERED: NS IV 1000 ML 1,000 ML IV SCH (20:59)
[2020-04-12 21:05] LABS: CREATINE KINASE MB 2.1 NG/ML (<6.6)
[2020-04-12] MEDS ORDERED: HOLD METFORMIN - RECEIVED CONTRAST 20 ML VIAL IV SCH (21:15)
[2020-04-12] MEDS ORDERED: NS 100 ML (IVPB) BAG IV ONE (21:15)
[2020-04-12] MEDS ORDERED: IOHEXOL 350 MG/ML 100 ML (OMNIPAQUE 350) VIAL IV ONE (21:15)
--- NOTE | 2020-04-12 21:16 | Diagnostic Imaging Report ---
INDICATION: Chest pain Frontal chest obtained at 08:41 p.m. and compared to 08/25/2019. There is cardiomegaly and poststernotomy change. There is no focal infiltrate or pneumothorax or pleural fluid. IMPRESSION: Cardiomegaly with no acute process in the chest. Evidence of previous sternotomy. Dictated by: Dictated on workstation # [id number]
--- NOTE | 2020-04-12 21:54 | Diagnostic Imaging Report ---
INDICATION: Fall with chest and abdominal pain TECHNIQUE: Multiple contiguous axial images were obtained through the chest, abdomen, and pelvis after the administration of intravenous contrast. Auto Exposure Controls were utilized during the CT exam to meet ALARA standards for radiation dose reduction. CT chest findings: Patient has had previous sternotomy. The heart is mildly enlarged. There is no mediastinal hematoma or mass. There is no adenopathy in the rupinder. Axillary regions show no adenopathy. There is no pleural or pericardial fluid. There is no pneumothorax. There is some minimal dependent atelectatic change in the left lung base. There is no pulmonary parenchymal consolidation or focal mass. There are chronic changes throughout the thoracic spine with no overt acute bone abnormality. CT abdomen and pelvis findings: The liver shows mild diffuse low-density change compatible with fatty infiltration. There are numerous gallstones in contracted gallbladder. There is no biliary dilatation. The spleen, adrenals, and pancreas appear normal. Kidneys bilaterally show no hydronephrosis. There are benign-appearing cysts in the right kidney. There is no retroperitoneal mass or adenopathy. There is no ascites or hemoperitoneum. There are uncomplicated sigmoid diverticuli. There is no pelvic mass. There is no overt acute bony abnormality in the pelvis. There are diffuse degenerative findings in the lumbar spine. IMPRESSION: CT chest demonstrates evidence of previous sternotomy with cardiomegaly and no acute process in the chest. CT abdomen and pelvis demonstrates mild fatty infiltration of the liver. There are benign-appearing cysts in the right kidney. There are multiple gallstones in contracted gallbladder. There is no acute traumatic abnormality. There are degenerative findings in the thoracolumbar spine. Dictated by: Dictated on workstation # [id number]
--- OUTSIDE RECORDS SUMMARY | 2020-04-12 22:06 | XMS REPORT | CCD ---
Author Author Joaquín Espinosa Organization [facility] Address [address] [place] [address] Phone Care Team Providers Care Tree Topper Name Role Phone PP Unavailable CCM Unavailable Summary Purpose Interface Exchange Insurance Providers Payer name Policy type / Coverage type Covered republican ID Effective Begin Date Effective End Date WPS Medicare Part B Medicare Part B [id number] Unknown Cigna Medicare Part B 36 [id number] Unknown Family history Grandfather Diagnosis Age At Onset lung cancer Unknown Runs in the family Diagnosis Age At Onset Cancer Unknown Grandfather Diagnosis Age At Onset Cancer Unknown Social History Social History Element Codes Description Effective Dates Marital status Unknown M arried Nitza 07/05/2015 Number of children Unknown 3 07/05/2015 Employment Unknown Retir ed 07/05/[address]: 0074682 Quit over 10 years ago 07/05/[address]: 769258 Currently drinks alcohol beer 07/05/2015 Allergies, Adverse Reactions, Alerts Substance Reaction Codes Entered Date Inactivated Date Status * NO KNOWN DRUG MEIR RGIES Unknown 07/05/2015 No Inactive Date Active Past Medical History Illness Codes Condition Status Onset Date Resolved Date Essential (primary) hypertension ICD-9: 401.1 ICD-10: I10 Active 07/24/2016 Unknown Generalized anxiety disorder ICD-9: 300.02 ICD-10: F41.1 Active 03/21/2016 Unknown Mixed hyperlipidemia ICD-9: 272.2 ICD-10: E78.2 Active 07/24/2016 Unknown Gastro-esophageal re flux disease without esophagitis ICD-9: 530.81 ICD-10: K21.9 Active 03/21/2016 Unknown Impaired fasting glu cose ICD-9: 790.21 ICD-10: R73.01 Active 11/20/2017 Unknown Acute upper respirat ory infection, unspecified ICD-9: 465.9 ICD-10: J06.9 Active 10/03/2018 Unknown Cough ICD-9: 786.2 ICD-10: R05 Active 10/03/2018 Unknown Acute recurrent maxi llary sinusitis ICD-9: 461.0 ICD-10: J01.01 Active 07/24/2016 Unknown Other allergic rhinitis ICD-9: 477.8 ICD-10: J30.89 Active 09/16/2016 Unknown Allergic contact silvia matitis due to plants, except food ICD-9: 692.6 ICD-10: L23.7 Active 06/16/2018 Unknown Other pruritus ICD-9: 698.8 ICD-10: L29.8 Active 06/16/2018 Unknown Allergic dermatitis of left upper eyelid ICD-9: 373.32 ICD-10: H01.114 Active 04/24/2018 Unknown Allergic rhinitis du e to pollen ICD-9: 477.9 ICD-10: J30.1 Active 04/24/2018 Unknown Encounter for genera l adult medical examination without abnormal findings ICD-9: V70.9 ICD-10: Z00.00 Active 11/16/2016 Unknown Actinic keratosis ICD-9: 702.0 ICD-10: L57.0 Active 11/04/2017 Unknown Cervicalgia ICD-9: 723.1 ICD-10: M54.2 Active 10/07/2017 Unknown Myalgia ICD-9: 729.1 ICD-10: M79.1 Active 10/07/2017 Unknown Major depressive dis order, recurrent, mild ICD-9: 296.31 ICD-10: F33.0 Active 03/21/2016 Unknown Low back pain ICD-9: 724.2 ICD-10: M54.5 Active 03/19/2017 Unknown Contusion of right l ower leg, initial encounter ICD-9: 924.5 ICD-10: S80.11XA Active 08/02/2016 Unknown Localized edema ICD-9: 782.3 ICD-10: R60.0 Active 01/21/2017 Unknown Pain in right lower leg ICD-9: 729.5 ICD-10: M79.661 Active 01/21/2017 Unknown Major depressive dis order, recurrent, moderate ICD-9: 296.32 ICD-10: F33.1 Active 01/11/2016 Unknown Chronic obstructive pulmonary disease with (acute) exacerbation ICD-9: 491.21 ICD-10: J44.1 Active 07/24/2016 Unknown Acute laryngopharyng itis ICD-9: 465.0 ICD-10: J06.0 Active 09/16/2016 Unknown Coronary angioplasty status ICD-9: V45.82 ICD-10: Z98.61 Active 01/11/2016 Unknown Essential (primary) hypertension ICD-9: 401.9 ICD-10: I10 Active 01/11/2016 Unknown Hyperlipidemia, unsp ecified ICD-9: 272.4 ICD-10: E78.5 Active 01/11/2016 Unknown Hypertension Unknown Active 09/13/2015 Unknow n Hyperlipidemia Unknown Active 07/05/2015 Unknow n Osteoarthritis Unknown Active 07/05/2015 Unknow n Personal history of other diseases of the circulatory system ICD-9: V12.59 ICD-10: Z86.79 Active 07/04/2015 Unknown Polyneuropathy, unsp ecified ICD-9: 356.9 ICD-10: G62.9 Active 07/04/2015 Unknown Unspecified osteoart hritis, unspecified site ICD-9: 715.90 ICD-10: M19.90 Active 07/04/2015 Unknown Problems Condition Codes Effectiv e Dates Condition Status Essential (primary) hypertension ICD-9: 401.1 ICD-10: I10 07/24/2016 Active Generalized anxiety disorder ICD-9: 300.02 ICD-10: F41.1 03/21/2016 Active Mixed hyperlipidemia ICD-9: 272.2 ICD-10: E78.2 07/24/2016 Active Gastro-esophageal re flux disease without esophagitis ICD-9: 530.81 ICD-10: K21.9 03/21/2016 Active Impaired fasting glu cose ICD-9: 790.21 ICD-10: R73.01 11/20/2017 Active Acute upper respirat ory infection, unspecified ICD-9: 465.9 ICD-10: J06.9 10/03/2018 Active Cough ICD-9: 786.2 ICD-10: R05 10/03/2018 Active Acute recurrent maxi llary sinusitis ICD-9: 461.0 ICD-10: J01.01 07/24/2016 Active Other allergic rhinitis ICD-9: 477.8 ICD-10: J30.89 09/16/2016 Active Allergic contact silvia matitis due to plants, except food ICD-9: 692.6 ICD-10: L23.7 06/16/2018 Active Other pruritus ICD-9: 698.8 ICD-10: L29.8 06/16/2018 Active Allergic dermatitis of left upper eyelid ICD-9: 373.32 ICD-10: H01.114 04/24/2018 Active Allergic rhinitis du e to pollen ICD-9: 477.9 ICD-10: J30.1 04/24/2018 Active Encounter for genera l adult medical examination without abnormal findings ICD-9: V70.9 ICD-10: Z00.00 11/16/2016 Active Actinic keratosis ICD-9: 702.0 ICD-10: L57.0 11/04/2017 Active Cervicalgia ICD-9: 723.1 ICD-10: M54.2 10/07/2017 Active Myalgia ICD-9: 729.1 ICD-10: M79.1 10/07/2017 Active Major depressive dis order, recurrent, mild ICD-9: 296.31 ICD-10: F33.0 03/21/2016 Active Low back pain ICD-9: 724.2 ICD-10: M54.5 03/19/2017 Active Contusion of right l ower leg, initial encounter ICD-9: 924.5 ICD-10: S80.11XA 08/02/2016 Active Localized edema ICD-9: 782.3 ICD-10: R60.0 01/21/2017 Active Pain in right lower leg ICD-9: 729.5 ICD-10: M79.661 01/21/2017 Active Major depressive dis order, recurrent, moderate ICD-9: 296.32 ICD-10: F33.1 01/11/2016 Active Chronic obstructive pulmonary disease with (acute) exacerbation ICD-9: 491.21 ICD-10: J44.1 07/24/2016 Active Acute laryngopharyng itis ICD-9: 465.0 ICD-10: J06.0 09/16/2016 Active Coronary angioplasty status ICD-9: V45.82 ICD-10: Z98.61 01/11/2016 Active Essential (primary) hypertension ICD-9: 401.9 ICD-10: I10 01/11/2016 Active Hyperlipidemia, unsp ecified ICD-9: 272.4 ICD-10: E78.5 01/11/2016 Active Hypertension Unknown 09/13/2015 Active Hyperlipidemia Unknown 07/05/2015 Active Osteoarthritis Unknown 07/05/2015 Active Personal history of other diseases of the circulatory system ICD-9: V12.59 ICD-10: Z86.79 07/04/2015 Active Polyneuropathy, unsp ecified ICD-9: 356.9 ICD-10: G62.9 07/04/2015 Active Unspecified osteoart hritis, unspecified site ICD-9: 715.90 ICD-10: M19.90 07/04/2015 Active Medications Medication Codes Instruc tions Start Date Stop Date Sta tus Fill Instructions naproxen 500 mg tablet RxNorm: 110776 Tablet(s) 1 TABLET(S) BID NEEDED FOR PAIN 05/28/2019 09/24/2019 Ac tive potassium chloride E R 10 mEq tablet,extended release RxNorm: 055728 1 TABLET(S) PO DAILY NEEDED 04/30/2019 06/28/2019 Active furosemide 20 mg tablet RxNorm: 721653 1 TABLET(S) PO DAILY NEEDED 04/30/2019 06/28/2019 Ac tive furosemide 20 mg tablet RxNorm: 666384 1 TABLET(S) PO DAILY NEEDED 03/19/2019 04/27/2019 In active potassium chloride E R 10 mEq tablet,extended release RxNorm: 837651 1 TABLET(S) PO DAILY NEEDED 03/19/2019 04/27/2019 Inactive escitalopram 20 mg t ablet RxNorm: 130594 TABLET(S) TAKE ONE & ONE-HALF TABLETS BY MOUTH IN THE EVENING 03/16/2019 No Stop Date Active furosemide 20 mg tablet RxNorm: 424237 1 TABLET(S) PO DAILY NEEDED 02/27/2019 03/18/2019 In active Patient requests 90 days supply potassium chloride E R 10 mEq tablet,extended release RxNorm: 567828 1 TABLET(S) PO DAILY NEEDED 02/27/2019 06/26/2019 Active Patient requests 90 days s upply potassium chloride E R 10 mEq tablet,extended release RxNorm: 131836 1 Tablet(s) PO daily as needed 02/27/2019 02/26/2019 Inactive furosemide 20 mg tablet RxNorm: 518771 1 Tablet(s) PO daily as needed 02/27/2019 02/26/2019 In active potassium chloride E R 10 mEq tablet,extended release RxNorm: 579856 1 Tablet(s) PO daily as needed 02/27/2019 02/26/2019 Inactive naproxen 500 mg tablet RxNorm: 393006 1 TABLET(S) BID NEEDED FOR PAIN 01/26/2019 05/27/2019 In active Crestor 10 mg tablet RxNorm: 890511 1 Tablet(s) PO every other day 11/03/2018 01/26/2020 Ac tive Zithromax Z-Ralph 250 mg tablet RxNorm: 376593 1 Tablet(s) PO UD 10/13/2018 10/12/2018 Inactive Zithromax Z-Ralhp 250 mg tablet RxNorm: 166592 1 Tablet(s) PO UD 10/13/2018 10/17/2018 Inactive escitalopram 20 mg t ablet RxNorm: 040813 Tablet(s) TAKE ONE & ONE-HALF TABLETS BY MOUTH IN THE EVENING 10/07/2018 03/15/2019 Inactive Keflex 500 mg capsule RxNorm: 409210 1 Capsule(s) PO TID 10/03/2018 10/09/2018 Inactive Kenalog 40 mg/mL jenni pension for injection RxNorm: 6651878 Milliliter(s) Inj 10/03/2018 10/03/2018 In active pantoprazole 40 mg t ablet,delayed release RxNorm: 620605 1 Tablet(s) BID 09/24/2018 12/17/2019 Ac tive naproxen 500 mg tablet RxNorm: 472688 1 Tablet(s) BID as needed for pain 09/24/2018 01/25/2019 In active Kenalog 40 mg/mL jenni pension for injection RxNorm: 5416564 1 Milliliter(s) Inj 08/25/2018 08/25/2018 In active pantoprazole 40 mg t ablet,delayed release RxNorm: 537081 TAKE 1 TABLET BY MOUT H TWICE DAILY 06/24/2018 09/23/2018 Inactive betamethasone diprop ionate 0.05 % topical cream RxNorm: 935918 1 Application TOP BID as needed 06/16/2018 No Stop Date Active prednisone 20 mg tablet RxNorm: 958319 2 Tablet(s) PO daily 06/16/2018 06/20/2018 Inactive Kenalog 40 mg/mL jenni pension for injection RxNorm: 1134851 1 Milliliter(s) Inj 06/16/2018 06/16/2018 In active naproxen 500 mg tablet RxNorm: 106974 TAKE 1 TABLET BY MOUTH TWICE DAILY NE EDED FOR PAIN 05/13/2018 09/23/2018 Inactive naproxen 500 mg tablet RxNorm: 969227 TAKE ONE TABLET BY MOUTH TWICE DAILY NEEDED FOR PAIN 01/07/2018 05/12/2018 Inactive escitalopram 20 mg t ablet RxNorm: 453221 TAKE ONE & ONE-HALF T ABLETS BY MOUTH IN THE EVENING 12/16/2017 10/06/2018 Inactive pantoprazole 40 mg t ablet,delayed release RxNorm: 246419 1 Tablet(s) PO BID 11/21/2017 03/20/2018 In active Crestor 10 mg tablet RxNorm: 858359 1 Tablet(s) PO every other day 10/07/2017 11/02/2018 In active naproxen 500 mg tablet RxNorm: 898476 TAKE ONE TABLET BY MOUTH TWICE DAILY NEEDED FOR PAIN 06/27/2017 12/23/2017 Inactive escitalopram 20 mg t ablet RxNorm: 108040 1 Tablet(s) PO QPM 06/03/2017 05/28/2018 Inactive pantoprazole 40 mg t ablet,delayed release RxNorm: 227461 1 Tablet(s) PO BID 03/19/2017 05/07/2017 In active naproxen 500 mg tablet RxNorm: 615196 TAKE ONE TABLET BY MOUTH TWICE DAILY NEEDED FOR PAIN 02/11/2017 06/10/2017 Inactive naproxen 500 mg tablet RxNorm: 934592 TAKE ONE TABLET BY MOUTH TWICE DAILY NEEDED FOR PAIN 12/14/2016 02/10/2017 Inactive escitalopram 20 mg t ablet RxNorm: 429353 1.5 Tablet(s) PO QPM 12/04/2016 06/02/2017 Inactive buspirone 5 mg tablet RxNorm: 547691 1 Tablet(s) PO BID 11/14/2016 12/03/2016 Inactive amoxicillin 500 mg c apsule RxNorm: 213182 1 Capsule(s) PO TID 09/17/2016 09/26/2016 Inactive prednisone 20 mg tablet RxNorm: 737134 2 Tablet(s) PO daily 09/17/2016 09/21/2016 Inactive escitalopram 20 mg t ablet RxNorm: 090692 1 Tablet(s) PO QPM 08/28/2016 12/03/2016 Inactive naproxen 500 mg tablet RxNorm: 309896 TAKE ONE TABLET BY MOUTH TWICE DAILY NEEDED FOR PAIN 08/01/2016 11/28/2016 Inactive sulfamethoxazole 800 mg-trimethoprim 160 mg tablet RxNorm: 122291 1 Tablet(s) PO BID 07/25/2016 07/31/2016 Inactive Kenalog 40 mg/mL jenni pension for injection RxNorm: 7216517 Milliliter(s) Inj 07/25/2016 07/25/2016 In active Symbicort 80 mcg-4.5 mcg/actuation HFA aerosol inhaler RxNorm: 8772190 2 INH QHS 07/25/2016 09/11/2016 In active escitalopram 20 mg t ablet RxNorm: 120997 1 Tablet(s) PO QPM 03/22/2016 08/27/2016 Inactive alprazolam 0.5 mg di sintegrating tablet RxNorm: 556165 1 Tablet(s) PO TID as needed anxiety 03/22/2016 11/13/2016 Inactive atorvastatin 20 mg t ablet RxNorm: 366126 1 Tablet(s) PO daily 01/12/2016 10/06/2017 Inactive Lexapro 10 mg tablet RxNorm: 559315 1 Tablet(s) PO QPM 01/12/2016 03/21/2016 Inactive pantoprazole 40 mg t ablet,delayed release RxNorm: 052954 1 Tablet(s) PO daily 10/13/2015 11/11/2015 In active pantoprazole 40 mg t ablet,delayed release RxNorm: 722967 1 Tablet(s) PO BID 09/13/2015 10/12/2015 In active naproxen 500 mg tablet RxNorm: 200876 Tablet(s) PO BID as needed for pain 07/05/2015 07/31/2016 In active folic acid 400 mcg t ablet RxNorm: 037176 1 Tablet(s) PO daily No Start Date Active Vitamin B12 500 mcg RxNorm: 2000 Microgram(s) PO daily No Start Date Active Toprol XL 50 mg tabl et,extended release RxNorm: 985267 1 Tablet(s) PO daily No Start Date Active Tudorza Pressair 400 mcg/actuation breath activated RxNorm: 5104343 1 INH QAM No Start Date Active aspirin 81 mg capsul e,delayed release RxNorm: 414662 1 Capsule(s) PO daily No Start Date Active Incruse Ellipta 62.5 mcg/actuation powder for inhalation RxNorm: 5915542 1 INH daily No Start Date Active clopidogrel 75 mg ta blet RxNorm: 476882 1 Tablet(s) PO daily No Start Date Active Symbicort 80 mcg-4.5 mcg/actuation HFA aerosol inhaler RxNorm: 1035361 2 INH QHS No Start Date 07/24/2016 Inactive pantoprazole 40 mg t ablet,delayed release RxNorm: 814988 1 Tablet(s) PO daily No Start Date 09/12/2015 Inactive atorvastatin 40 mg t ablet RxNorm: 055185 1 Tablet(s) PO daily No Start Date 01/11/2016 Inactive furosemide 20 mg tablet RxNorm: 620571 1 Tablet(s) PO daily No Start Date 09/11/2016 Inactive naproxen 500 mg tablet RxNorm: 273642 Tablet(s) PO TID No Start Date 07/04/2015 Inactive Medication Administered Medication Codes Instruc tions Start Date Status Kenalog 40 mg/mL suspension for injection RxNorm: 0309156 Milliliter 10/03/2018 No longer Active Kenalog 40 mg/mL suspension for injection RxNorm: 6687202 1Milliliter 08/25/2018 N o longer Active Kenalog 40 mg/mL suspension for injection RxNorm: 2728981 1Milliliter 06/16/2018 N o longer Active Kenalog 40 mg/mL suspension for injection RxNorm: 8745153 Milliliter 07/25/2016 No longer Active Immunizations Vaccine Codes Date Status Pneumococcal CVX: 33 09/2014 completed Assessments Condition Codes Effectiv e Dates Generalized anxiety disorder ICD-10: F41.1 ICD-9: 300.02 05/14/2019 Essential (primary) hypertension ICD -10: I10 ICD-9: 401.1 05/14/2019 Mixed hyperlipidemia ICD-10: E78.2 ICD-9: 272.2 05/14/2019 Gastro-esophageal reflux disease without esophagitis ICD-10: K21.9 ICD-9: 530.81 02/23/2019 Impaired fasting glucose ICD-10: R73 .01 ICD-9: 790.21 02/23/2019 Cough ICD-10: R05 ICD-9: 786.2 10/03/2018 Acute upper respiratory infection, unspecified ICD-10: J06.9 ICD-9: 465.9 10/03/2018 Other allergic rhinitis ICD-10: J30. 89 ICD-9: 477.8 08/25/2018 Other pruritus ICD-10: L29.8 ICD-9: 698.8 06/16/2018 Allergic contact dermatitis due to plants, except food ICD-10: L23.7 ICD-9: 692.6 06/16/2018 Allergic rhinitis due to pollen ICD- 10: J30.1 ICD-9: 477.9 04/24/2018 Allergic dermatitis of left upper eyelid ICD-10: H01.114 ICD-9: 373.32 04/24/2018 Encounter for general adult medical exam ination without abnormal findings ICD-10: Z00.00 ICD-9: V70.9 11/19/2017 Actinic keratosis ICD-10: L57.0 ICD-9: 702.0 11/04/2017 Myalgia ICD-10: M79.1 ICD-9: 729.1 10/07/2017 Cervicalgia ICD-10: M54.2 ICD-9: 723.1 10/07/2017 Major depressive disorder, recurrent, mild ICD-10: F33.0 ICD-9: 296.31 06/03/2017 Low back pain ICD-10: M54.5 ICD-9: 724.2 03/19/2017 Contusion of right lower leg, initial encounter ICD-10: S80.11XA ICD-9: 924.5 01/21/2017 Pain in right lower leg ICD-10: M79. 661 ICD-9: 729.5 01/21/2017 Localized edema ICD-10: R60.0 ICD-9: 782.3 01/21/2017 Major depressive disorder, recurrent, moderate ICD-10: F33.1 ICD-9: 296.32 12/04/2016 Chronic obstructive pulmonary disease wi th (acute) exacerbation ICD-10: J44.1 ICD-9: 491.21 11/14/2016 Acute laryngopharyngitis ICD-10: J06 .0 ICD-9: 465.0 09/17/2016 Acute recurrent maxillary sinusitis ICD-10: J01.01 ICD-9: 461.0 07/25/2016 Essential (primary) hypertension ICD -10: I10 ICD-9: 401.9 01/12/2016 Hyperlipidemia, unspecified ICD-10: E78.5 ICD-9: 272.4 01/12/2016 Coronary angioplasty status ICD-10: Z98.61 ICD-9: V45.82 01/12/2016 Unspecified osteoarthritis, unspecified site ICD-10: M19.90 ICD-9: 715.90 07/05/2015 Polyneuropathy, unspecified ICD-10: G62.9 ICD-9: 356.9 07/05/2015 Personal history of other diseases of the circulatory system ICD-10: Z86.79 ICD-9: V12.59 07/05/2015 Reason For Visit Reason For Visit Effective Dates Notes hypertension 05/14/2019 hypertension 02/23/2019 sinus congestion 10/03/2018 hypertension 08/25/2018 rash 06/16/2018 neck pain 04/24/2018 Annual Medicare Wellness Exam 11/19/2017 hypertension 11/04/2017 hypertension 10/07/2017 hypertension 06/03/2017 hypertension 03/19/2017 improved lower leg pain 01/21/2017 hypertension 12/04/2016 Annual Medicare Wellness Exam 11/16/2016 hypertension 11/14/2016 cough 09/17/2016 new lesion 08/03/2016 gastroesophageal reflux 07/25/2016 gastroesophageal reflux 03/22/2016 gastroesophageal reflux 01/12/2016 gastroesophageal reflux 10/13/2015 hyperlipidemia 09/13/2015 hyperlipidemia 07/05/2015 Results Observation Observation Code Item Item Code Result Date Cbc With Differential Ord2 WBC 4.91 K/ul 02/23/2019 Cbc With Differential Ord2 RBC 4.94 M/ul 02/23/2019 Cbc With Differential Ord2 HGB 14.5 g/dl 02/23/2019 Cbc With Differential Ord2 HCT 43.8 % 02/23/2019 Cbc With Differential Ord2 Neut% 65.0 % 02/23/2019 Cbc With Differential Ord2 MCV 88.7 fl 02/23/2019 Cbc With Differential Ord2 Lymph% 26.9 % 02/23/2019 Cbc With Differential Ord2 [place]% 6.9 % 02/23/2019 Cbc With Differential Ord2 MCH 29.4 pg 02/23/2019 Cbc With Differential Ord2 Eos% 0.8 % 02/23/2019 Cbc With Differential Ord2 MCHC 33.1 pg 02/23/2019 Cbc With Differential Ord2 Baso% 0.4 % 02/23/2019 Cbc With Differential Ord2 PLT 159 K/ul 02/23/2019 Cbc With Differential Ord2 Neut ABS# 3.19 K/ul 02/23/2019 Cbc With Differential Ord2 RDW 13.2 % 02/23/2019 Cbc With Differential Ord2 Lymph ABS# 1.32 K/ul 02/23/2019 Cbc With Differential Ord2 [place] ABS# 0.3 K/ul 02/23/2019 Cbc With Differential Ord2 Eos ABS# 0.0 K/ul 02/23/2019 Cbc With Differential Ord2 Baso ABS# 0.0 K/ul 02/23/2019 %Hba1C Fdr418 % HbA1c 59471-0 6.1 % 02/23/2019 %Hba1C Cmc415 Gluc Ave 128 mg/dL 02/23/2019 Lipid Ord30 CHOL 129 mg/dL 02/23/2019 Lipid Ord30 HDL 36.0 mg/dl 02/23/2019 Lipid Ord30 TRIG 133 mg/dL 02/23/2019 Lipid Ord30 LDL 66 mg/dL 02/23/2019 Lipid Ord30 C/HDL 3.6 Ratio 02/23/2019 Comp Metabolic Cwx286 NA 140 mEq/L 02/23/2019 Comp Metabolic Dxi046 K 4.3 mEq/L 02/23/2019 Comp Metabolic Gfs241 CL 104 mEq/L 02/23/2019 Comp Metabolic Oei567 CO2 28.0 mEq/L 02/23/2019 Comp Metabolic Dnq459 AN ION GAP 12 02/23/2019 Comp Metabolic Ahr476 GL UCOSE 115 mg/dL 02/23/2019 Comp Metabolic Bjh908 Cr eat 1.2 mg/dL 02/23/2019 Comp Metabolic Lpb365 eG FR 62 ml/min/1.73m2 02/23 Comp Metabolic Iva846 BUN 17 mg/dL 02/23/2019 Comp Metabolic Xui282 B/ C Ratio 14.0 Ratio 02/23/2019 Comp Metabolic Owo006 CA LCIUM 9.2 mg/dL 02/23/2019 Comp Metabolic Unk197 AL K PHOS 80 U/L 02/23/2019 Comp Metabolic Ebq844 T(SGOT) 16 U/L 02/23/2019 Comp Metabolic Roo895 AL T(SGPT) 15 U/L 02/23/2019 Comp Metabolic Vxy327 BI LI T 1.0 mg/dL 02/23/2019 Comp Metabolic Zvn147 AL BUMIN 4.1 g/dL 02/23/2019 Comp Metabolic Mpu472 TP RO 6.5 g/dL 02/23/2019 Comp Metabolic Qls763 GL OB 2.4 g/dL 02/23/2019 Comp Metabolic Gac510 A/ G Ratio 1.7 Ratio 02/23/2019 Comp Metabolic Yku387 Os mo 282 mOsmo 02/23/2019 Total Psa Ord10 PSA 1.86 ng/mL 02/23/2019 Tsh Ord6 TSH (3rd IS) 1.68 uIU/mL 02/23/2019 Lipid Ord30 CHOL 144 mg/dL 08/20/2018 Lipid Ord30 HDL 40.0 mg/dl 08/20/2018 Lipid Ord30 TRIG 120 mg/dL 08/20/2018 Lipid Ord30 LDL 80 mg/dL 08/20/2018 Lipid Ord30 C/HDL 3.6 Ratio 08/20/2018 Cbc With Differential Ord2 WBC 4.85 K/ul 08/20/2018 Cbc With Differential Ord2 RBC 4.89 M/ul 08/20/2018 Cbc With Differential Ord2 HGB 14.7 g/dl 08/20/2018 Cbc With Differential Ord2 HCT 43.6 % 08/20/2018 Cbc With Differential Ord2 Neut% 60.6 % 08/20/2018 Cbc With Differential Ord2 MCV 89.2 fl 08/20/2018 Cbc With Differential Ord2 Lymph% 29.1 % 08/20/2018 Cbc With Differential Ord2 MCH 30.1 pg 08/20/2018 Cbc With Differential Ord2 [place]% 8.0 % 08/20/2018 Cbc With Differential Ord2 MCHC 33.7 pg 08/20/2018 Cbc With Differential Ord2 Eos% 1.9 % 08/20/2018 Cbc With Differential Ord2 PLT 159 K/ul 08/20/2018 Cbc With Differential Ord2 Baso% 0.4 % 08/20/2018 Cbc With Differential Ord2 RDW 13.0 % 08/20/2018 Cbc With Differential Ord2 Neut ABS# 2.94 K/ul 08/20/2018 Cbc With Differential Ord2 Lymph ABS# 1.41 K/ul 08/20/2018 Cbc With Differential Ord2 [place] ABS# 0.4 K/ul 08/20/2018 Cbc With Differential Ord2 Eos ABS# 0.1 K/ul 08/20/2018 Cbc With Differential Ord2 Baso ABS# 0.0 K/ul 08/20/2018 Tsh Ord6 TSH (3rd IS) 2.07 uIU/mL 08/20/2018 %Hba1C Vpr642 % HbA1c 56911-5 6.0 % 08/20/2018 %Hba1C Mmf035 Gluc Ave 126 mg/dL 08/20/2018 Comp Metabolic Bne836 NA 142 mEq/L 08/20/2018 Comp Metabolic Ngr511 K 4.2 mEq/L 08/20/2018 Comp Metabolic Pvq889 CL 105 mEq/L 08/20/2018 Comp Metabolic Opl160 CO2 30.0 mEq/L 08/20/2018 Comp Metabolic Qjs983 AN ION GAP 11 08/20/2018 Comp Metabolic Fud844 GL UCOSE 132 mg/dL 08/20/2018 Comp Metabolic Jlt388 Cr eat 1.3 mg/dL 08/20/2018 Comp Metabolic Ugi210 eG FR 58 ml/min/1.73m2 08/20 Comp Metabolic Eba526 BUN 19 mg/dL 08/20/2018 Comp Metabolic Ilw693 B/ C Ratio 14.8 Ratio 08/20/2018 Comp Metabolic Bbh373 CA LCIUM 9.2 mg/dL 08/20/2018 Comp Metabolic Jxt406 AL K PHOS 72 U/L 08/20/2018 Comp Metabolic Rzx007 T(SGOT) 21 U/L 08/20/2018 Comp Metabolic Kxl908 AL T(SGPT) 20 U/L 08/20/2018 Comp Metabolic Faz204 BI LI T 1.1 mg/dL 08/20/2018 Comp Metabolic Hbs001 AL BUMIN 4.3 g/dL 08/20/2018 Comp Metabolic Hmn806 TP RO 6.6 g/dL 08/20/2018 Comp Metabolic Ujt251 GL OB 2.3 g/dL 08/20/2018 Comp Metabolic Tlp975 A/ G Ratio 1.9 Ratio 08/20/2018 Comp Metabolic Dno682 Os mo 287 mOsmo 08/20/2018 %Hba1C Yov922 % HbA1c 46833-8 5.9 % 11/20/2017 %Hba1C Jof053 Gluc Ave 123 mg/dL 11/20/2017 B12 Auo964 B12 1130.00 pg/ml 11/19/2017 Total Psa Ord10 PSA 2.89 ng/mL 11/19/2017 Tsh Ord6 TSH (3rd IS) 1.60 uIU/mL 11/19/2017 Lipid Ord30 CHOL 176 mg/dL 11/19/2017 Lipid Ord30 HDL 39.0 mg/dl 11/19/2017 Lipid Ord30 TRIG 184 mg/dL 11/19/2017 Lipid Ord30 LDL 100 mg/dL 11/19/2017 Lipid Ord30 C/HDL 4.5 Ratio 11/19/2017 Cbc With Differential Ord2 WBC 4.91 K/ul 11/19/2017 Cbc With Differential Ord2 RBC 5.14 M/ul 11/19/2017 Cbc With Differential Ord2 HGB 15.0 g/dl 11/19/2017 Cbc With Differential Ord2 HCT 44.6 % 11/19/2017 Cbc With Differential Ord2 Neut% 62.3 % 11/19/2017 Cbc With Differential Ord2 MCV 86.8 fl 11/19/2017 Cbc With Differential Ord2 Lymph% 27.9 % 11/19/2017 Cbc With Differential Ord2 MCH 29.2 pg 11/19/2017 Cbc With Differential Ord2 [place]% 8.6 % 11/19/2017 Cbc With Differential Ord2 MCHC 33.6 pg 11/19/2017 Cbc With Differential Ord2 Eos% 0.8 % 11/19/2017 Cbc With Differential Ord2 PLT 159 K/ul 11/19/2017 Cbc With Differential Ord2 Baso% 0.4 % 11/19/2017 Cbc With Differential Ord2 RDW 13.3 % 11/19/2017 Cbc With Differential Ord2 Neut ABS# 3.06 K/ul 11/19/2017 Cbc With Differential Ord2 Lymph ABS# 1.37 K/ul 11/19/2017 Cbc With Differential Ord2 [place] ABS# 0.4 K/ul 11/19/2017 Cbc With Differential Ord2 Eos ABS# 0.0 K/ul 11/19/2017 Cbc With Differential Ord2 Baso ABS# 0.0 K/ul 11/19/2017 Comp Metabolic Zop251 NA 142 mEq/L 11/19/2017 Comp Metabolic Jwr259 K 4.3 mEq/L 11/19/2017 Comp Metabolic Axg462 CL 104 mEq/L 11/19/2017 Comp Metabolic Pio933 CO2 29.0 mEq/L 11/19/2017 Comp Metabolic Pma145 AN ION GAP 13 11/19/2017 Comp Metabolic Tee120 GL UCOSE 132 mg/dL 11/19/2017 Comp Metabolic Aye075 Cr eat 1.2 mg/dL 11/19/2017 Comp Metabolic Hvn182 eG FR 63 ml/min/1.73m2 11/19 Comp Metabolic Mia788 BUN 20 mg/dL 11/19/2017 Comp Metabolic Sch709 B/ C Ratio 16.8 Ratio 11/19/2017 Comp Metabolic Hwi427 CA LCIUM 9.3 mg/dL 11/19/2017 Comp Metabolic Tik234 AL K PHOS 74 U/L 11/19/2017 Comp Metabolic Xjd522 T(SGOT) 15 U/L 11/19/2017 Comp Metabolic Svg547 AL T(SGPT) 15 U/L 11/19/2017 Comp Metabolic Xcc691 BI LI T 0.9 mg/dL 11/19/2017 Comp Metabolic Ipl879 AL BUMIN 4.3 g/dL 11/19/2017 Comp Metabolic Fke018 TP RO 6.6 g/dL 11/19/2017 Comp Metabolic Qux261 GL OB 2.3 g/dL 11/19/2017 Comp Metabolic Mag948 A/ G Ratio 1.9 Ratio 11/19/2017 Comp Metabolic Rye910 Os mo 288 mOsmo 11/19/2017 Tsh Ord6 hTSH II 1.54 uIU/mL 11/16/2016 Total Psa Ord10 PSA 1.92 ng/mL 11/16/2016 Cbc With Differential Ord2 WBC 4.80 K/ul 11/16/2016 Cbc With Differential Ord2 RBC 4.73 M/ul 11/16/2016 Cbc With Differential Ord2 HGB 14.3 g/dl 11/16/2016 Cbc With Differential Ord2 HCT 42.5 % 11/16/2016 Cbc With Differential Ord2 Neut% 57.5 % 11/16/2016 Cbc With Differential Ord2 Lymph% 30.4 % 11/16/2016 Cbc With Differential Ord2 MCV 89.9 fl 11/16/2016 Cbc With Differential Ord2 MCH 30.2 pg 11/16/2016 Cbc With Differential Ord2 [place]% 10.2 % 11/16/2016 Cbc With Differential Ord2 MCHC 33.6 pg 11/16/2016 Cbc With Differential Ord2 Eos% 1.5 % 11/16/2016 Cbc With Differential Ord2 PLT 150 K/ul 11/16/2016 Cbc With Differential Ord2 Baso% 0.4 % 11/16/2016 Cbc With Differential Ord2 RDW 13.5 % 11/16/2016 Cbc With Differential Ord2 Neut ABS# 2.76 K/ul 11/16/2016 Cbc With Differential Ord2 Lymph ABS# 1.46 K/ul 11/16/2016 Cbc With Differential Ord2 [place] ABS# 0.5 K/ul 11/16/2016 Cbc With Differential Ord2 Eos ABS# 0.1 K/ul 11/16/2016 Cbc With Differential Ord2 Baso ABS# 0.0 K/ul 11/16/2016 Comp Metabolic Hac858 NA 141 mEq/L 11/16/2016 Comp Metabolic Xjv979 K 4.2 mEq/L 11/16/2016 Comp Metabolic Wxa363 CL 106 mEq/L 11/16/2016 Comp Metabolic Qgr484 CO2 30.0 mEq/L 11/16/2016 Comp Metabolic Zsv480 AN ION GAP 9 11/16/2016 Comp Metabolic Ldt026 GL UCOSE 118 mg/dL 11/16/2016 Comp Metabolic Mjw715 Cr eat 1.2 mg/dL 11/16/2016 Comp Metabolic Cit983 eG FR 61 ml/min/1.73m2 11/16 Comp Metabolic Buy042 BUN 22 mg/dL 11/16/2016 Comp Metabolic Ggt129 B/ C Ratio 17.7 Ratio 11/16/2016 Comp Metabolic Xos422 CA LCIUM 9.2 mg/dL 11/16/2016 Comp Metabolic Bnu413 AL K PHOS 91 U/L 11/16/2016 Comp Metabolic Ggg723 T(SGOT) 16 U/L 11/16/2016 Comp Metabolic Vva302 AL T(SGPT) 16 U/L 11/16/2016 Comp Metabolic Ais665 BI LI T 0.9 mg/dL 11/16/2016 Comp Metabolic Tmw847 AL BUMIN 4.1 g/dL 11/16/2016 Comp Metabolic Mqt185 TP RO 6.4 g/dL 11/16/2016 Comp Metabolic Cil392 GL OB 2.3 g/dL 11/16/2016 Comp Metabolic Zym793 A/ G Ratio 1.8 Ratio 11/16/2016 Comp Metabolic Vgf822 Os mo 286 mOsmo 11/16/2016 Lipid Ord30 CHOL 142 [...] 11/29/2015 Magnesium Ord90 Mag 1.8 mg/dL 08/01/2015 B Type Natriuretic Peptide Mjr7231 B-ON [employer] PERSONALITY 13.10 pg/ml 08/01/2015 Lipid Ord30 CHOL 188 mg/dL 08/01/2015 Lipid Ord30 HDL 39.0 mg/dl 08/01/2015 Lipid Ord30 TRIG 163 mg/dL 08/01/2015 Lipid Ord30 LDL 116 mg/dL 08/01/2015 Lipid Ord30 C/HDL 4.8 Ratio 08/01/2015 Cbc With Differential Ord2 WBC 5.2 [...] With Differential Ord2 RDW 14.7 % 08/01/2015 Comp Metabolic Cud278 NA 138 mEq/L 08/01/2015 Comp Metabolic Bvo973 K 4.2 mEq/L 08/01/2015 Comp Metabolic Ipr586 CL 104 mEq/L 08/01/2015 Comp Metabolic Psa214 CO2 27.0 mEq/L 08/01/2015 Comp Metabolic Lyh304 AN ION GAP 11 08/01/2015 Comp Metabolic Stv078 GL UCOSE 118 mg/dL 08/01/2015 Comp Metabolic Spr124 Cr eat 1.2 mg/dL 08/01/2015 Comp Metabolic Eip190 eG FR 66 ml/min/1.73m2 08/01 Comp Metabolic Gmj942 BUN 19 mg/dL 08/01/2015 Comp Metabolic Rwv006 B/ C Ratio 16.4 Ratio 08/01/2015 Comp Metabolic Ooz356 CA LCIUM 8.7 mg/dL 08/01/2015 Comp Metabolic Oqp904 AL K PHOS 85 U/L 08/01/2015 Comp Metabolic Jzq667 T(SGOT) 16 U/L 08/01/2015 Comp Metabolic Opq211 AL T(SGPT) 20 U/L 08/01/2015 Comp Metabolic Fku141 BI LI T 0.7 mg/dL 08/01/2015 Comp Metabolic Zbp943 AL BUMIN 3.9 g/dL 08/01/2015 Comp Metabolic Lvn399 TP RO 6.2 g/dL 08/01/2015 Comp Metabolic Lqx972 GL OB 2.4 g/dL 08/01/2015 Comp Metabolic Fzo664 A/ G Ratio 1.6 Ratio 08/01/2015 Comp Metabolic Xci776 Os mo 279 mOsmo 08/01/2015 Tsh Ord6 hTSH II 1.79 uIU/mL 08/01/2015 Sed Rate Ord21 ESR 1 mm/hr 08/01/2015 Tsh Ord6 hTSH II 2.43 uIU/mL 07/07/2015 Folate Ord36 Folate 7.62 ng/mL 07/07/2015 B12 Ltx427 B12 228.00 pg/ml 07/07/2015 Review of Systems System Result Effective Dates Constitutional No recent illness 05/14/2019 Constitutional No chills 05/14/2019 Constitutional fatigue 0 05/14/2019 Constitutional No fever 05/14/2019 Constitutional No insomnia 05/14/2019 Constitutional No malaise 05/14/2019 Eyes No blindness 2018 Eyes No eye discharge Eyes No eye erythema 01/2019 Eyes No eye pain 019 Eyes No eye tearing 01/2019 Eyes No eye trauma 05/14 Eyes eyelid edema 2018 Eyes eyelid erythema 01/2019 Eyes No vision change Ears/Nose/Throat/Neck No dental pain 05/14/2019 Ears/Nose/Throat/Neck No dizziness 05/14/2019 Ears/Nose/Throat/Neck No dysphagia 05/14/2019 Ears/Nose/Throat/Neck No headache 05/14/2019 Ears/Nose/Throat/Neck No hearing loss 05/14/2019 Ears/Nose/Throat/Neck No nasal allergies 05/14/2019 Ears/Nose/Throat/Neck No sore throat 05/14/2019 Ears/Nose/Throat/Neck No postnasal drip 05/14/2019 Ears/Nose/Throat/Neck No sinus congestion 05/14/2019 Cardiovascular No dyspnea 05/14/2019 Cardiovascular No edema 05/14/2019 Cardiovascular exercise intolerance 05/14/2019 Cardiovascular fatigue 0 05/14/2019 Cardiovascular No near-syncope/dizziness 05/14/2019 Respiratory No chest tightness 05/14/2019 Respiratory No cough 01/2019 Respiratory No dyspnea 0 05/14/2019 Respiratory No pedal edema 05/14/2019 Gastrointestinal No abdominal pain 05/14/2019 Gastrointestinal No constipation 05/14/2019 Gastrointestinal No diarrhea 05/14/2019 Gastrointestinal gastroesophageal reflux 05/14/2019 Gastrointestinal No nausea 05/14/2019 Gastrointestinal No vomiting 05/14/2019 Musculoskeletal No stiffness 05/14/2019 Musculoskeletal No swelling 05/14/2019 Musculoskeletal back pain 05/14/2019 Musculoskeletal No muscle weakness 05/14/2019 Musculoskeletal No myalgias 05/14/2019 Dermatologic No rash 01/2019 Dermatologic No sores Neurologic No dizziness 05/14/2019 Neurologic No headache 0 05/14/2019 Neurologic No neck pain 05/14/2019 Neurologic No syncope Psychiatric anxiety 09/0 01/2019 Psychiatric depression 0 05/14/2019 Constitutional recent illness 02/23/2019 Constitutional No chills 02/23/2019 Constitutional fatigue 0 02/23/2019 Constitutional No fever 02/23/2019 Constitutional No insomnia 02/23/2019 Constitutional No malaise 02/23/2019 Eyes No blindness 2018 Eyes No vision change Ears/Nose/Throat/Neck No dental pain 02/23/2019 Ears/Nose/Throat/Neck No dizziness 02/23/2019 Ears/Nose/Throat/Neck No dysphagia 02/23/2019 Ears/Nose/Throat/Neck No headache 02/23/2019 Ears/Nose/Throat/Neck No hearing loss 02/23/2019 Ears/Nose/Throat/Neck nasal allergies 02/23/2019 Ears/Nose/Throat/Neck nasal discharge 02/23/2019 Ears/Nose/Throat/Neck No sore throat 02/23/2019 Ears/Nose/Throat/Neck postnasal drip 02/23/2019 Ears/Nose/Throat/Neck sinus congestion 02/23/2019 Cardiovascular No chest pain/pressure 02/23/2019 Cardiovascular No dyspnea 02/23/2019 Cardiovascular No edema 02/23/2019 Cardiovascular exercise intolerance 02/23/2019 Cardiovascular fatigue 0 02/23/2019 Cardiovascular No near-syncope/dizziness 02/23/2019 Respiratory No chest tightness 02/23/2019 Respiratory No cough Respiratory dyspnea 02/07 Respiratory No pedal edema 02/23/2019 Gastrointestinal No abdominal pain 02/23/2019 Gastrointestinal No constipation 02/23/2019 Gastrointestinal No diarrhea 02/23/2019 Gastrointestinal gastroesophageal reflux 02/23/2019 Gastrointestinal No nausea 02/23/2019 Gastrointestinal No vomiting 02/23/2019 Genitourinary/Nephrology No dysuria 02/23/2019 Genitourinary/Nephrology No nocturia 02/23/2019 Genitourinary/Nephrology No urinary incontinence 02/23/2019 Musculoskeletal No stiffness 02/23/2019 Musculoskeletal No swelling 02/23/2019 Musculoskeletal back pain 02/23/2019 Musculoskeletal No muscle weakness 02/23/2019 Musculoskeletal No myalgias 02/23/2019 Dermatologic No rash Dermatologic sores 02/23 Neurologic No dizziness 02/23/2019 Neurologic No headache 0 02/23/2019 Neurologic No neck pain 02/23/2019 Neurologic No syncope Psychiatric anxiety 02/07 Psychiatric depression 0 02/23/2019 Respiratory dyspnea on exertion 02/23/2019 Constitutional recent illness 10/03/2018 Constitutional No anorexia 10/03/2018 Constitutional No night sweats 10/03/2018 Constitutional No chills 10/03/2018 Constitutional No diaphoresis 10/03/2018 Constitutional No fatigue 10/03/2018 Constitutional No fever 10/03/2018 Constitutional No insomnia 10/03/2018 Constitutional No malaise 10/03/2018 Constitutional No weight loss 10/03/2018 Constitutional No weight gain 10/03/2018 Eyes No eye erythema Eyes No eye discharge Ears/Nose/Throat/Neck No dizziness 10/03/2018 Ears/Nose/Throat/Neck No headache 10/03/2018 Ears/Nose/Throat/Neck nasal allergies 10/03/2018 Ears/Nose/Throat/Neck nasal discharge 10/03/2018 Ears/Nose/Throat/Neck otalgia 10/03/2018 Ears/Nose/Throat/Neck sinus congestion 10/03/2018 Ears/Nose/Throat/Neck sore throat 10/03/2018 Cardiovascular No chest pain/pressure 10/03/2018 Cardiovascular No dyspnea 10/03/2018 Cardiovascular No edema 10/03/2018 Respiratory productive sputum 10/03/2018 Respiratory cough 2018 Gastrointestinal No vomiting 10/03/2018 Gastrointestinal No nausea 10/03/2018 Gastrointestinal No diarrhea 10/03/2018 Genitourinary/Nephrology No dysuria 10/03/2018 Musculoskeletal No joint complaint 10/03/2018 Dermatologic No rash Dermatologic No sores Neurologic No alteration of consciousness 10/03/2018 Constitutional recent illness 08/25/2018 Constitutional No chills 08/25/2018 Constitutional fatigue 1 10/26/2017 Constitutional No fever 08/25/2018 Constitutional No insomnia 08/25/2018 Constitutional No malaise 08/25/2018 Eyes No blindness 2017 Eyes No vision change Ears/Nose/Throat/Neck No dental pain 08/25/2018 Ears/Nose/Throat/Neck No dizziness 08/25/2018 Ears/Nose/Throat/Neck No dysphagia 08/25/2018 Ears/Nose/Throat/Neck No headache 08/25/2018 Ears/Nose/Throat/Neck No hearing loss 08/25/2018 Ears/Nose/Throat/Neck nasal allergies 08/25/2018 Ears/Nose/Throat/Neck No sore throat 08/25/2018 Ears/Nose/Throat/Neck postnasal drip 08/25/2018 Ears/Nose/Throat/Neck sinus congestion 08/25/2018 Cardiovascular No chest pain/pressure 08/25/2018 Cardiovascular No dyspnea 08/25/2018 Cardiovascular No edema 08/25/2018 Cardiovascular exercise intolerance 08/25/2018 Cardiovascular fatigue 1 10/26/2017 Cardiovascular No near-syncope/dizziness 08/25/2018 Respiratory No chest tightness 08/25/2018 Respiratory No cough Respiratory No dyspnea 1 10/26/2017 Respiratory No pedal edema 08/25/2018 Gastrointestinal No abdominal pain 08/25/2018 Gastrointestinal No constipation 08/25/2018 Gastrointestinal No diarrhea 08/25/2018 Gastrointestinal gastroesophageal reflux 08/25/2018 Gastrointestinal No nausea 08/25/2018 Gastrointestinal No vomiting 08/25/2018 Genitourinary/Nephrology No dysuria 08/25/2018 Genitourinary/Nephrology No nocturia 08/25/2018 Genitourinary/Nephrology No urinary incontinence 08/25/2018 Musculoskeletal No stiffness 08/25/2018 Musculoskeletal No swelling 08/25/2018 Musculoskeletal back pain 08/25/2018 Musculoskeletal No muscle weakness 08/25/2018 Musculoskeletal No myalgias 08/25/2018 Dermatologic No rash Dermatologic sores 08/25 Neurologic No dizziness 08/25/2018 Neurologic No headache 1 10/26/2017 Neurologic No neck pain 08/25/2018 Neurologic No syncope Psychiatric anxiety 08/09 Psychiatric depression 1 10/26/2017 Ears/Nose/Throat/Neck nasal discharge 08/25/2018 Constitutional No recent illness 06/16/2018 Constitutional No fever 06/16/2018 Eyes No eye erythema 04/2018 Ears/Nose/Throat/Neck No nasal discharge 06/16/2018 Cardiovascular No chest pain/pressure 06/16/2018 Respiratory No cough 04/2018 Cardiovascular No dyspnea 06/16/2018 Dermatologic rash 2017 Neurologic No alteration of consciousness 06/16/2018 Neurologic No mental status change 06/16/2018 Constitutional No recent illness 04/24/2018 Constitutional No chills 04/24/2018 Constitutional fatigue 0 04/24/2018 Constitutional No fever 04/24/2018 Constitutional No insomnia 04/24/2018 Constitutional No malaise 04/24/2018 Eyes No blindness 2017 Eyes No vision change Ears/Nose/Throat/Neck No dental pain 04/24/2018 Ears/Nose/Throat/Neck No dizziness 04/24/2018 Ears/Nose/Throat/Neck No dysphagia 04/24/2018 Ears/Nose/Throat/Neck No headache 04/24/2018 Ears/Nose/Throat/Neck No hearing loss 04/24/2018 Ears/Nose/Throat/Neck No nasal allergies 04/24/2018 Ears/Nose/Throat/Neck No sore throat 04/24/2018 Ears/Nose/Throat/Neck No postnasal drip 04/24/2018 Ears/Nose/Throat/Neck No sinus congestion 04/24/2018 Cardiovascular No chest pain/pressure 04/24/2018 Cardiovascular No dyspnea 04/24/2018 Cardiovascular No edema 04/24/2018 Cardiovascular exercise intolerance 04/24/2018 Cardiovascular fatigue 0 04/24/2018 Cardiovascular No near-syncope/dizziness 04/24/2018 Respiratory No chest tightness 04/24/2018 Respiratory No cough Respiratory No dyspnea 0 04/24/2018 Respiratory No pedal edema 04/24/2018 Gastrointestinal No abdominal pain 04/24/2018 Gastrointestinal No constipation 04/24/2018 Gastrointestinal No diarrhea 04/24/2018 Gastrointestinal gastroesophageal reflux 04/24/2018 Gastrointestinal No nausea 04/24/2018 Gastrointestinal No vomiting 04/24/2018 Musculoskeletal No stiffness 04/24/2018 Musculoskeletal No swelling 04/24/2018 Musculoskeletal back pain 04/24/2018 Musculoskeletal No muscle weakness 04/24/2018 Musculoskeletal No myalgias 04/24/2018 Dermatologic No rash Dermatologic No sores Neurologic No dizziness 04/24/2018 Neurologic No headache 0 04/24/2018 Neurologic No neck pain 04/24/2018 Neurologic No syncope Psychiatric anxiety 04/09 Psychiatric depression 0 04/24/2018 Eyes eyelid erythema Eyes No eye discharge Eyes No eye erythema Eyes No eye pain 018 Eyes No eye tearing 04/09 Eyes No eye trauma 04/24 Eyes eyelid edema 2017 Constitutional No recent illness 11/19/2017 Constitutional No chills 11/19/2017 Constitutional No diaphoresis 11/19/2017 Constitutional No fever 11/19/2017 Eyes No blindness 2017 Ears/Nose/Throat/Neck No nasal allergies 11/19/2017 Ears/Nose/Throat/Neck No nasal discharge 11/19/2017 Cardiovascular chest pain/pressure 11/19/2017 Cardiovascular dyspnea 0 11/19/2017 Respiratory No dyspnea 0 11/19/2017 Gastrointestinal No abdominal pain 11/19/2017 Gastrointestinal No constipation 11/19/2017 Gastrointestinal No diarrhea 11/19/2017 Gastrointestinal No nausea 11/19/2017 Gastrointestinal No vomiting 11/19/2017 Musculoskeletal joint complaint 11/19/2017 Dermatologic No rash Neurologic No alteration of consciousness 11/19/2017 Neurologic No mental status change 11/19/2017 Constitutional No anorexia 11/19/2017 Constitutional No night sweats 11/19/2017 Constitutional fatigue 0 11/19/2017 Constitutional No insomnia 11/19/2017 Constitutional No malaise 11/19/2017 Constitutional weight loss 11/19/2017 Ears/Nose/Throat/Neck No dizziness 11/19/2017 Ears/Nose/Throat/Neck No headache 11/19/2017 Psychiatric depression 0 11/19/2017 Psychiatric anxiety 11/07 Genitourinary/Nephrology No dysuria 11/19/2017 Musculoskeletal myalgias 11/19/2017 Constitutional No recent illness 11/04/2017 Constitutional No chills 11/04/2017 Constitutional fatigue 0 11/04/2017 Constitutional No fever 11/04/2017 Constitutional No insomnia 11/04/2017 Constitutional No malaise 11/04/2017 Eyes No blindness 2017 Eyes No vision change Ears/Nose/Throat/Neck No dental pain 11/04/2017 Ears/Nose/Throat/Neck No dizziness 11/04/2017 Ears/Nose/Throat/Neck No dysphagia 11/04/2017 Ears/Nose/Throat/Neck No headache 11/04/2017 Ears/Nose/Throat/Neck No hearing loss 11/04/2017 Ears/Nose/Throat/Neck No nasal allergies 11/04/2017 Ears/Nose/Throat/Neck No sore throat 11/04/2017 Ears/Nose/Throat/Neck No postnasal drip 11/04/2017 Ears/Nose/Throat/Neck No sinus congestion 11/04/2017 Cardiovascular No chest pain/pressure 11/04/2017 Cardiovascular No dyspnea 11/04/2017 Cardiovascular No edema 11/04/2017 Cardiovascular exercise intolerance 11/04/2017 Cardiovascular fatigue 0 11/04/2017 Cardiovascular No near-syncope/dizziness 11/04/2017 Respiratory No chest tightness 11/04/2017 Respiratory No cough Respiratory No dyspnea 0 11/04/2017 Respiratory No pedal edema 11/04/2017 Gastrointestinal No abdominal pain 11/04/2017 Gastrointestinal No constipation 11/04/2017 Gastrointestinal No diarrhea 11/04/2017 Gastrointestinal gastroesophageal reflux 11/04/2017 Gastrointestinal No nausea 11/04/2017 Gastrointestinal No vomiting 11/04/2017 Genitourinary/Nephrology No dysuria 11/04/2017 Genitourinary/Nephrology No nocturia 11/04/2017 Genitourinary/Nephrology No urinary incontinence 11/04/2017 Musculoskeletal No stiffness 11/04/2017 Musculoskeletal No swelling 11/04/2017 Musculoskeletal back pain 11/04/2017 Musculoskeletal No muscle weakness 11/04/2017 Musculoskeletal No myalgias 11/04/2017 Dermatologic No rash Dermatologic sores 11/04 Neurologic No dizziness 11/04/2017 Neurologic No headache 0 11/04/2017 Neurologic No neck pain 11/04/2017 Neurologic No syncope Psychiatric anxiety 10/11 Psychiatric depression 0 11/04/2017 Constitutional No recent illness 10/07/2017 Constitutional No chills 10/07/2017 Constitutional fatigue 0 10/07/2017 Constitutional No fever 10/07/2017 Constitutional No insomnia 10/07/2017 Constitutional No malaise 10/07/2017 Eyes No blindness 2017 Eyes No vision change Ears/Nose/Throat/Neck No dental pain 10/07/2017 Ears/Nose/Throat/Neck No dizziness 10/07/2017 Ears/Nose/Throat/Neck No dysphagia 10/07/2017 Ears/Nose/Throat/Neck No headache 10/07/2017 Ears/Nose/Throat/Neck No hearing loss 10/07/2017 Ears/Nose/Throat/Neck No nasal allergies 10/07/2017 Ears/Nose/Throat/Neck No sore throat 10/07/2017 Ears/Nose/Throat/Neck No postnasal drip 10/07/2017 Ears/Nose/Throat/Neck No sinus congestion 10/07/2017 Cardiovascular No chest pain/pressure 10/07/2017 Cardiovascular No dyspnea 10/07/2017 Cardiovascular No edema 10/07/2017 Cardiovascular exercise intolerance 10/07/2017 Cardiovascular fatigue 0 10/07/2017 Cardiovascular No near-syncope/dizziness 10/07/2017 Respiratory No chest tightness 10/07/2017 Respiratory No cough Respiratory No dyspnea 0 10/07/2017 Respiratory No pedal edema 10/07/2017 Gastrointestinal No abdominal pain 10/07/2017 Gastrointestinal No constipation 10/07/2017 Gastrointestinal No diarrhea 10/07/2017 Gastrointestinal gastroesophageal reflux 10/07/2017 Gastrointestinal No nausea 10/07/2017 Gastrointestinal No vomiting 10/07/2017 Genitourinary/Nephrology No dysuria 10/07/2017 Genitourinary/Nephrology No nocturia 10/07/2017 Genitourinary/Nephrology No urinary incontinence 10/07/2017 Musculoskeletal No stiffness 10/07/2017 Musculoskeletal No swelling 10/07/2017 Musculoskeletal back pain 10/07/2017 Musculoskeletal No muscle weakness 10/07/2017 Musculoskeletal myalgias 10/07/2017 Dermatologic No rash Dermatologic No sores Dermatologic No scar Neurologic No dizziness 10/07/2017 Neurologic No headache 0 10/07/2017 Neurologic No neck pain 10/07/2017 Neurologic No syncope Psychiatric anxiety 09/10 Psychiatric depression 0 10/07/2017 Musculoskeletal neck pain 10/07/2017 Constitutional No recent illness 06/03/2017 Constitutional No chills 06/03/2017 Constitutional fatigue 0 06/03/2017 Constitutional No fever 06/03/2017 Constitutional No insomnia 06/03/2017 Constitutional No malaise 06/03/2017 Eyes No blindness 2016 Eyes No vision change Ears/Nose/Throat/Neck No dental pain 06/03/2017 Ears/Nose/Throat/Neck No dizziness 06/03/2017 Ears/Nose/Throat/Neck No dysphagia 06/03/2017 Ears/Nose/Throat/Neck No headache 06/03/2017 Ears/Nose/Throat/Neck No hearing loss 06/03/2017 Ears/Nose/Throat/Neck No nasal allergies 06/03/2017 Ears/Nose/Throat/Neck No sore throat 06/03/2017 Ears/Nose/Throat/Neck No postnasal drip 06/03/2017 Ears/Nose/Throat/Neck No sinus congestion 06/03/2017 Cardiovascular No chest pain/pressure 06/03/2017 Cardiovascular No dyspnea 06/03/2017 Cardiovascular No edema 06/03/2017 Cardiovascular exercise intolerance 06/03/2017 Cardiovascular fatigue 0 06/03/2017 Cardiovascular No near-syncope/dizziness 06/03/2017 Respiratory No chest tightness 06/03/2017 Respiratory No cough Respiratory No dyspnea 0 06/03/2017 Respiratory No pedal edema 06/03/2017 Gastrointestinal No abdominal pain 06/03/2017 Gastrointestinal No constipation 06/03/2017 Gastrointestinal No diarrhea 06/03/2017 Gastrointestinal gastroesophageal reflux 06/03/2017 Gastrointestinal No nausea 06/03/2017 Gastrointestinal No vomiting 06/03/2017 Genitourinary/Nephrology No dysuria 06/03/2017 Genitourinary/Nephrology No nocturia 06/03/2017 Genitourinary/Nephrology No urinary incontinence 06/03/2017 Musculoskeletal No stiffness 06/03/2017 Musculoskeletal No swelling 06/03/2017 Musculoskeletal No muscle weakness 06/03/2017 Musculoskeletal No myalgias 06/03/2017 Dermatologic No rash Dermatologic No sores Dermatologic No scar Neurologic No dizziness 06/03/2017 Neurologic No headache 0 06/03/2017 Neurologic No neck pain 06/03/2017 Neurologic No syncope Psychiatric anxiety 05/11 Psychiatric depression 0 06/03/2017 Musculoskeletal back pain 06/03/2017 Constitutional No recent illness 03/19/2017 Constitutional No chills 03/19/2017 Constitutional fatigue 0 03/19/2017 Constitutional No fever 03/19/2017 Constitutional No insomnia 03/19/2017 Constitutional No malaise 03/19/2017 Eyes No blindness 2016 Eyes No vision change Ears/Nose/Throat/Neck No dental pain 03/19/2017 Ears/Nose/Throat/Neck No dizziness 03/19/2017 Ears/Nose/Throat/Neck No dysphagia 03/19/2017 Ears/Nose/Throat/Neck No headache 03/19/2017 Ears/Nose/Throat/Neck No hearing loss 03/19/2017 Ears/Nose/Throat/Neck No nasal allergies 03/19/2017 Ears/Nose/Throat/Neck No sore throat 03/19/2017 Ears/Nose/Throat/Neck No postnasal drip 03/19/2017 Ears/Nose/Throat/Neck No sinus congestion 03/19/2017 Cardiovascular No chest pain/pressure 03/19/2017 Cardiovascular No dyspnea 03/19/2017 Cardiovascular No edema 03/19/2017 Cardiovascular exercise intolerance 03/19/2017 Cardiovascular fatigue 0 03/19/2017 Cardiovascular No near-syncope/dizziness 03/19/2017 Respiratory No chest tightness 03/19/2017 Respiratory No cough 07/2017 Respiratory No dyspnea 0 03/19/2017 Respiratory No pedal edema 03/19/2017 Gastrointestinal No abdominal pain 03/19/2017 Gastrointestinal No constipation 03/19/2017 Gastrointestinal No diarrhea 03/19/2017 Gastrointestinal gastroesophageal reflux 03/19/2017 Gastrointestinal No nausea 03/19/2017 Gastrointestinal No vomiting 03/19/2017 Genitourinary/Nephrology No dysuria 03/19/2017 Genitourinary/Nephrology No nocturia 03/19/2017 Genitourinary/Nephrology No urinary incontinence 03/19/2017 Musculoskeletal No stiffness 03/19/2017 Musculoskeletal No swelling 03/19/2017 Musculoskeletal No muscle weakness 03/19/2017 Musculoskeletal No myalgias 03/19/2017 Dermatologic No rash 07/2017 Dermatologic No sores Dermatologic No scar 07/2017 Neurologic No dizziness 03/19/2017 Neurologic No headache 0 03/19/2017 Neurologic No neck pain 03/19/2017 Neurologic No syncope Psychiatric anxiety 03/09 Psychiatric depression 0 03/19/2017 Musculoskeletal back pain 03/19/2017 Musculoskeletal joint complaint 01/21/2017 Constitutional No recent illness 01/21/2017 Constitutional No anorexia 01/21/2017 Constitutional No night sweats 01/21/2017 Constitutional No chills 01/21/2017 Constitutional No diaphoresis 01/21/2017 Constitutional No fatigue 01/21/2017 Constitutional No fever 01/21/2017 Constitutional No insomnia 01/21/2017 Constitutional No malaise 01/21/2017 Constitutional No weight loss 01/21/2017 Constitutional No weight gain 01/21/2017 Cardiovascular No chest pain/pressure 01/21/2017 Cardiovascular edema Respiratory dyspnea on exertion 01/21/2017 Gastrointestinal No abdominal pain 01/21/2017 Gastrointestinal No constipation 01/21/2017 Gastrointestinal No diarrhea 01/21/2017 Genitourinary/Nephrology No dysuria 01/21/2017 Dermatologic ecchymosis 01/21/2017 Neurologic No alteration of consciousness 01/21/2017 Constitutional No recent illness 12/04/2016 Constitutional No chills 12/04/2016 Constitutional fatigue 0 12/04/2016 Constitutional No fever 12/04/2016 Constitutional No insomnia 12/04/2016 Constitutional No malaise 12/04/2016 Eyes No blindness 2016 Eyes No vision change Ears/Nose/Throat/Neck No dental pain 12/04/2016 Ears/Nose/Throat/Neck No dizziness 12/04/2016 Ears/Nose/Throat/Neck No dysphagia 12/04/2016 Ears/Nose/Throat/Neck No headache 12/04/2016 Ears/Nose/Throat/Neck No hearing loss 12/04/2016 Ears/Nose/Throat/Neck No nasal allergies 12/04/2016 Ears/Nose/Throat/Neck No sore throat 12/04/2016 Ears/Nose/Throat/Neck No postnasal drip 12/04/2016 Ears/Nose/Throat/Neck No sinus congestion 12/04/2016 Cardiovascular No chest pain/pressure 12/04/2016 Cardiovascular No dyspnea 12/04/2016 Cardiovascular No edema 12/04/2016 Cardiovascular exercise intolerance 12/04/2016 Cardiovascular fatigue 0 12/04/2016 Cardiovascular No near-syncope/dizziness 12/04/2016 Respiratory No chest tightness 12/04/2016 Respiratory No cough Respiratory No dyspnea 0 12/04/2016 Respiratory No pedal edema 12/04/2016 Gastrointestinal No abdominal pain 12/04/2016 Gastrointestinal No constipation 12/04/2016 Gastrointestinal No diarrhea 12/04/2016 Gastrointestinal gastroesophageal reflux 12/04/2016 Gastrointestinal No nausea 12/04/2016 Gastrointestinal No vomiting 12/04/2016 Genitourinary/Nephrology No dysuria 12/04/2016 Genitourinary/Nephrology No nocturia 12/04/2016 Genitourinary/Nephrology No urinary incontinence 12/04/2016 Musculoskeletal No stiffness 12/04/2016 Musculoskeletal No swelling 12/04/2016 Musculoskeletal No muscle weakness 12/04/2016 Musculoskeletal No myalgias 12/04/2016 Dermatologic No rash Dermatologic No sores Dermatologic No scar Neurologic No dizziness 12/04/2016 Neurologic No headache 0 12/04/2016 Neurologic No neck pain 12/04/2016 Neurologic No syncope Psychiatric anxiety 11/08 Psychiatric depression 0 12/04/2016 Constitutional No recent illness 11/16/2016 Constitutional No chills 11/16/2016 Constitutional No diaphoresis 11/16/2016 Constitutional No fever 11/16/2016 Eyes No eye erythema 06/2017 Ears/Nose/Throat/Neck No nasal allergies 11/16/2016 Ears/Nose/Throat/Neck No nasal discharge 11/16/2016 Cardiovascular No chest pain/pressure 11/16/2016 Cardiovascular No dyspnea 11/16/2016 Respiratory No dyspnea 0 11/16/2016 Gastrointestinal No abdominal pain 11/16/2016 Gastrointestinal No constipation 11/16/2016 Gastrointestinal No diarrhea 11/16/2016 Gastrointestinal No nausea 11/16/2016 Gastrointestinal No vomiting 11/16/2016 Musculoskeletal No joint complaint 11/16/2016 Dermatologic No rash 06/2017 Neurologic No alteration of consciousness 11/16/2016 Neurologic No mental status change 11/16/2016 Constitutional No recent illness 11/14/2016 Constitutional No chills 11/14/2016 Constitutional fatigue 0 11/14/2016 Constitutional No fever 11/14/2016 Constitutional No insomnia 11/14/2016 Constitutional No malaise 11/14/2016 Eyes No blindness 2016 Eyes No vision change Ears/Nose/Throat/Neck No dental pain 11/14/2016 Ears/Nose/Throat/Neck No dizziness 11/14/2016 Ears/Nose/Throat/Neck No dysphagia 11/14/2016 Ears/Nose/Throat/Neck No headache 11/14/2016 Ears/Nose/Throat/Neck No hearing loss 11/14/2016 Ears/Nose/Throat/Neck No nasal allergies 11/14/2016 Ears/Nose/Throat/Neck No sore throat 11/14/2016 Ears/Nose/Throat/Neck No postnasal drip 11/14/2016 Ears/Nose/Throat/Neck No sinus congestion 11/14/2016 Cardiovascular No chest pain/pressure 11/14/2016 Cardiovascular No dyspnea 11/14/2016 Cardiovascular No edema 11/14/2016 Cardiovascular exercise intolerance 11/14/2016 Cardiovascular fatigue 0 11/14/2016 Cardiovascular No near-syncope/dizziness 11/14/2016 Respiratory No chest tightness 11/14/2016 Respiratory No cough 04/2017 Respiratory No dyspnea 0 11/14/2016 Respiratory No pedal edema 11/14/2016 Gastrointestinal No abdominal pain 11/14/2016 Gastrointestinal No constipation 11/14/2016 Gastrointestinal No diarrhea 11/14/2016 Gastrointestinal gastroesophageal reflux 11/14/2016 Gastrointestinal No nausea 11/14/2016 Gastrointestinal No vomiting 11/14/2016 Genitourinary/Nephrology No dysuria 11/14/2016 Genitourinary/Nephrology No nocturia 11/14/2016 Genitourinary/Nephrology No urinary incontinence 11/14/2016 Musculoskeletal No stiffness 11/14/2016 Musculoskeletal No swelling 11/14/2016 Musculoskeletal No muscle weakness 11/14/2016 Musculoskeletal No myalgias 11/14/2016 Dermatologic No rash 04/2017 Dermatologic No sores Dermatologic No scar 04/2017 Neurologic No dizziness 11/14/2016 Neurologic No headache 0 11/14/2016 Neurologic No neck pain 11/14/2016 Neurologic No syncope Psychiatric anxiety 03/04/2017 Psychiatric depression 0 11/14/2016 Constitutional recent illness 09/17/2016 Constitutional chills Constitutional No diaphoresis 09/17/2016 Constitutional fever 05/2017 Eyes No eye erythema 05/2017 Ears/Nose/Throat/Neck nasal allergies 09/17/2016 Ears/Nose/Throat/Neck nasal discharge 09/17/2016 Ears/Nose/Throat/Neck postnasal drip 09/17/2016 Ears/Nose/Throat/Neck sore throat 09/17/2016 Cardiovascular No chest pain/pressure 09/17/2016 Cardiovascular No dyspnea 09/17/2016 Respiratory chest congestion 09/17/2016 Respiratory cough 2016 Gastrointestinal No constipation 09/17/2016 Gastrointestinal No diarrhea 09/17/2016 Gastrointestinal No nausea 09/17/2016 Gastrointestinal No vomiting 09/17/2016 Dermatologic No rash 05/2017 Neurologic No alteration of consciousness 09/17/2016 Neurologic No mental status change 09/17/2016 Respiratory productive sputum 09/17/2016 Constitutional No recent illness 08/03/2016 Constitutional No chills 08/03/2016 Constitutional No fever 08/03/2016 Eyes No eye erythema Ears/Nose/Throat/Neck No nasal discharge 08/03/2016 Cardiovascular No chest pain/pressure 08/03/2016 Cardiovascular No dyspnea 08/03/2016 Respiratory No cough Respiratory No dyspnea 1 10/03/2015 Musculoskeletal joint complaint 08/03/2016 Neurologic No alteration of consciousness 08/03/2016 Neurologic No mental status change 08/03/2016 Dermatologic ecchymosis 08/03/2016 Constitutional No recent illness 07/25/2016 Constitutional No chills 07/25/2016 Constitutional fatigue 1 09/24/2015 Constitutional No fever 07/25/2016 Constitutional No insomnia 07/25/2016 Constitutional No malaise 07/25/2016 Eyes No blindness 2015 Eyes No vision change Ears/Nose/Throat/Neck No dental pain 07/25/2016 Ears/Nose/Throat/Neck No dizziness 07/25/2016 Ears/Nose/Throat/Neck No dysphagia 07/25/2016 Ears/Nose/Throat/Neck No headache 07/25/2016 Ears/Nose/Throat/Neck No hearing loss 07/25/2016 Ears/Nose/Throat/Neck No nasal allergies 07/25/2016 Ears/Nose/Throat/Neck No sore throat 07/25/2016 Ears/Nose/Throat/Neck No postnasal drip 07/25/2016 Ears/Nose/Throat/Neck No sinus congestion 07/25/2016 Cardiovascular No chest pain/pressure 07/25/2016 Cardiovascular No dyspnea 07/25/2016 Cardiovascular No edema 07/25/2016 Cardiovascular exercise intolerance 07/25/2016 Cardiovascular fatigue 1 09/24/2015 Cardiovascular No near-syncope/dizziness 07/25/2016 Respiratory No chest tightness 07/25/2016 Respiratory No cough Respiratory No dyspnea 1 09/24/2015 Respiratory No pedal edema 07/25/2016 Gastrointestinal No abdominal pain 07/25/2016 Gastrointestinal No constipation 07/25/2016 Gastrointestinal No diarrhea 07/25/2016 Gastrointestinal gastroesophageal reflux 07/25/2016 Gastrointestinal No nausea 07/25/2016 Gastrointestinal No vomiting 07/25/2016 Genitourinary/Nephrology No dysuria 07/25/2016 Genitourinary/Nephrology No nocturia 07/25/2016 Genitourinary/Nephrology No urinary incontinence 07/25/2016 Musculoskeletal No stiffness 07/25/2016 Musculoskeletal No swelling 07/25/2016 Musculoskeletal No muscle weakness 07/25/2016 Musculoskeletal No myalgias 07/25/2016 Dermatologic No rash Dermatologic No sores Dermatologic No scar Neurologic No dizziness 07/25/2016 Neurologic No headache 1 09/24/2015 Neurologic No neck pain 07/25/2016 Neurologic No syncope Psychiatric No anxiety 1 09/24/2015 Psychiatric depression 1 09/24/2015 Constitutional No recent illness 03/22/2016 Constitutional No chills 03/22/2016 Constitutional fatigue 0 03/22/2016 Constitutional No fever 03/22/2016 Constitutional No insomnia 03/22/2016 Constitutional No malaise 03/22/2016 Eyes No blindness 2015 Eyes No vision change Ears/Nose/Throat/Neck No dental pain 03/22/2016 Ears/Nose/Throat/Neck No dizziness 03/22/2016 Ears/Nose/Throat/Neck No dysphagia 03/22/2016 Ears/Nose/Throat/Neck No headache 03/22/2016 Ears/Nose/Throat/Neck No hearing loss 03/22/2016 Ears/Nose/Throat/Neck No nasal allergies 03/22/2016 Ears/Nose/Throat/Neck No sore throat 03/22/2016 Ears/Nose/Throat/Neck No postnasal drip 03/22/2016 Ears/Nose/Throat/Neck No sinus congestion 03/22/2016 Cardiovascular No chest pain/pressure 03/22/2016 Cardiovascular No dyspnea 03/22/2016 Cardiovascular No edema 03/22/2016 Cardiovascular exercise intolerance 03/22/2016 Cardiovascular fatigue 0 03/22/2016 Cardiovascular No near-syncope/dizziness 03/22/2016 Respiratory No chest tightness 03/22/2016 Respiratory No cough Respiratory No dyspnea 0 03/22/2016 Respiratory No pedal edema 03/22/2016 Gastrointestinal No abdominal pain 03/22/2016 Gastrointestinal No constipation 03/22/2016 Gastrointestinal No diarrhea 03/22/2016 Gastrointestinal gastroesophageal reflux 03/22/2016 Gastrointestinal No nausea 03/22/2016 Gastrointestinal No vomiting 03/22/2016 Genitourinary/Nephrology No dysuria 03/22/2016 Genitourinary/Nephrology No nocturia 03/22/2016 Genitourinary/Nephrology No urinary incontinence 03/22/2016 Musculoskeletal No stiffness 03/22/2016 Musculoskeletal No swelling 03/22/2016 Musculoskeletal No muscle weakness 03/22/2016 Musculoskeletal No myalgias 03/22/2016 Dermatologic No rash Dermatologic No sores Dermatologic No scar Neurologic No dizziness 03/22/2016 Neurologic No headache 0 03/22/2016 Neurologic No neck pain 03/22/2016 Neurologic No syncope Psychiatric No anxiety 0 03/22/2016 Psychiatric depression 0 03/22/2016 Constitutional No recent illness 01/12/2016 Constitutional No chills 01/12/2016 Constitutional fatigue 0 01/12/2016 Constitutional No fever 01/12/2016 Constitutional No insomnia 01/12/2016 Constitutional No malaise 01/12/2016 Eyes No blindness 2015 Eyes No vision change Ears/Nose/Throat/Neck No dental pain 01/12/2016 Ears/Nose/Throat/Neck No dizziness 01/12/2016 Ears/Nose/Throat/Neck No dysphagia 01/12/2016 Ears/Nose/Throat/Neck No headache 01/12/2016 Ears/Nose/Throat/Neck No hearing loss 01/12/2016 Ears/Nose/Throat/Neck No nasal allergies 01/12/2016 Ears/Nose/Throat/Neck No sore throat 01/12/2016 Ears/Nose/Throat/Neck No postnasal drip 01/12/2016 Ears/Nose/Throat/Neck No sinus congestion 01/12/2016 Cardiovascular No chest pain/pressure 01/12/2016 Cardiovascular No dyspnea 01/12/2016 Cardiovascular No edema 01/12/2016 Cardiovascular exercise intolerance 01/12/2016 Cardiovascular fatigue 0 01/12/2016 Cardiovascular No near-syncope/dizziness 01/12/2016 Respiratory No chest tightness 01/12/2016 Respiratory No cough 01/2016 Respiratory No dyspnea 0 01/12/2016 Respiratory No pedal edema 01/12/2016 Gastrointestinal No abdominal pain 01/12/2016 Gastrointestinal No constipation 01/12/2016 Gastrointestinal No diarrhea 01/12/2016 Gastrointestinal gastroesophageal reflux 01/12/2016 Gastrointestinal No nausea 01/12/2016 Gastrointestinal No vomiting 01/12/2016 Genitourinary/Nephrology No dysuria 01/12/2016 Genitourinary/Nephrology No nocturia 01/12/2016 Genitourinary/Nephrology No urinary incontinence 01/12/2016 Musculoskeletal No stiffness 01/12/2016 Musculoskeletal No swelling 01/12/2016 Musculoskeletal No muscle weakness 01/12/2016 Musculoskeletal No myalgias 01/12/2016 Dermatologic No rash 01/2016 Dermatologic No sores Dermatologic No scar 01/2016 Neurologic No dizziness 01/12/2016 Neurologic No headache 0 01/12/2016 Neurologic No neck pain 01/12/2016 Neurologic No syncope Psychiatric No anxiety 0 01/12/2016 Psychiatric depression 0 01/12/2016 Constitutional No recent illness 10/13/2015 Constitutional No chills 10/13/2015 Constitutional fatigue 0 10/13/2015 Constitutional No fever 10/13/2015 Constitutional No insomnia 10/13/2015 Constitutional No malaise 10/13/2015 Eyes No blindness 2015 Eyes No vision change Ears/Nose/Throat/Neck No dental pain 10/13/2015 Ears/Nose/Throat/Neck No dizziness 10/13/2015 Ears/Nose/Throat/Neck No dysphagia 10/13/2015 Ears/Nose/Throat/Neck No headache 10/13/2015 Ears/Nose/Throat/Neck No hearing loss 10/13/2015 Ears/Nose/Throat/Neck No nasal allergies 10/13/2015 Ears/Nose/Throat/Neck No sore throat 10/13/2015 Ears/Nose/Throat/Neck No postnasal drip 10/13/2015 Ears/Nose/Throat/Neck No sinus congestion 10/13/2015 Cardiovascular No chest pain/pressure 10/13/2015 Cardiovascular No dyspnea 10/13/2015 Cardiovascular No edema 10/13/2015 Cardiovascular exercise intolerance 10/13/2015 Cardiovascular fatigue 0 10/13/2015 Cardiovascular No near-syncope/dizziness 10/13/2015 Respiratory No chest tightness 10/13/2015 Respiratory No cough 12/2015 Respiratory No dyspnea 0 10/13/2015 Respiratory No pedal edema 10/13/2015 Gastrointestinal No abdominal pain 10/13/2015 Gastrointestinal No constipation 10/13/2015 Gastrointestinal No diarrhea 10/13/2015 Gastrointestinal gastroesophageal reflux 10/13/2015 Gastrointestinal No nausea 10/13/2015 Gastrointestinal No vomiting 10/13/2015 Genitourinary/Nephrology No dysuria 10/13/2015 Genitourinary/Nephrology No nocturia 10/13/2015 Genitourinary/Nephrology No urinary incontinence 10/13/2015 Musculoskeletal No stiffness 10/13/2015 Musculoskeletal No swelling 10/13/2015 Musculoskeletal No muscle weakness 10/13/2015 Musculoskeletal No myalgias 10/13/2015 Dermatologic No rash 12/2015 Dermatologic No sores Dermatologic No scar 12/2015 Neurologic No dizziness 10/13/2015 Neurologic No headache 0 10/13/2015 Neurologic No neck pain 10/13/2015 Neurologic No syncope Psychiatric No anxiety 0 10/13/2015 Psychiatric No depression 10/13/2015 Constitutional No recent illness 09/13/2015 Constitutional No chills 09/13/2015 Constitutional fatigue 0 09/13/2015 Constitutional No fever 09/13/2015 Constitutional No insomnia 09/13/2015 Constitutional No malaise 09/13/2015 Eyes No blindness 2015 Eyes No vision change Ears/Nose/Throat/Neck No dental pain 09/13/2015 Ears/Nose/Throat/Neck No dizziness 09/13/2015 Ears/Nose/Throat/Neck No dysphagia 09/13/2015 Ears/Nose/Throat/Neck No headache 09/13/2015 Ears/Nose/Throat/Neck No hearing loss 09/13/2015 Ears/Nose/Throat/Neck No nasal allergies 09/13/2015 Ears/Nose/Throat/Neck No sore throat 09/13/2015 Ears/Nose/Throat/Neck No postnasal drip 09/13/2015 Ears/Nose/Throat/Neck No sinus congestion 09/13/2015 Cardiovascular No chest pain/pressure 09/13/2015 Cardiovascular No dyspnea 09/13/2015 Cardiovascular No edema 09/13/2015 Cardiovascular exercise intolerance 09/13/2015 Cardiovascular fatigue 0 09/13/2015 Cardiovascular No near-syncope/dizziness 09/13/2015 Respiratory No chest tightness 09/13/2015 Respiratory No cough 01/2016 Respiratory No dyspnea 0 09/13/2015 Respiratory No pedal edema 09/13/2015 Gastrointestinal No abdominal pain 09/13/2015 Gastrointestinal No constipation 09/13/2015 Gastrointestinal No diarrhea 09/13/2015 Gastrointestinal gastroesophageal reflux 09/13/2015 Gastrointestinal No nausea 09/13/2015 Gastrointestinal No vomiting 09/13/2015 Genitourinary/Nephrology No dysuria 09/13/2015 Genitourinary/Nephrology No nocturia 09/13/2015 Genitourinary/Nephrology No urinary incontinence 09/13/2015 Musculoskeletal No stiffness 09/13/2015 Musculoskeletal No swelling 09/13/2015 Musculoskeletal No muscle weakness 09/13/2015 Musculoskeletal No myalgias 09/13/2015 Dermatologic No rash 01/2016 Dermatologic No sores Dermatologic No scar 01/2016 Neurologic No dizziness 09/13/2015 Neurologic No headache 0 09/13/2015 Neurologic No neck pain 09/13/2015 Neurologic No syncope Psychiatric No anxiety 0 09/13/2015 Psychiatric No depression 09/13/2015 Constitutional No recent illness 07/05/2015 Constitutional No chills 07/05/2015 Constitutional fatigue 1 Constitutional No fever 07/05/2015 Constitutional No insomnia 07/05/2015 Constitutional No malaise 07/05/2015 Eyes No blindness 2014 Eyes No vision change Ears/Nose/Throat/Neck No dental pain 07/05/2015 Ears/Nose/Throat/Neck No dizziness 07/05/2015 Ears/Nose/Throat/Neck No dysphagia 07/05/2015 Ears/Nose/Throat/Neck No headache 07/05/2015 Ears/Nose/Throat/Neck No hearing loss 07/05/2015 Ears/Nose/Throat/Neck No nasal allergies 07/05/2015 Ears/Nose/Throat/Neck No sore throat 07/05/2015 Ears/Nose/Throat/Neck No postnasal drip 07/05/2015 Ears/Nose/Throat/Neck No sinus congestion 07/05/2015 Cardiovascular No chest pain/pressure 07/05/2015 Cardiovascular No dyspnea 07/05/2015 Cardiovascular No edema 07/05/2015 Cardiovascular No exercise intolerance 07/05/2015 Cardiovascular No fatigue 07/05/2015 Cardiovascular No near-syncope/dizziness 07/05/2015 Respiratory No chest tightness 07/05/2015 Respiratory No cough Respiratory No dyspnea 1 Respiratory No pedal edema 07/05/2015 Gastrointestinal No abdominal pain 07/05/2015 Gastrointestinal No constipation 07/05/2015 Gastrointestinal No diarrhea 07/05/2015 Gastrointestinal No gastroesophageal reflu x 07/05/2015 Gastrointestinal No nausea 07/05/2015 Gastrointestinal No vomiting 07/05/2015 Genitourinary/Nephrology No dysuria 07/05/2015 Genitourinary/Nephrology No nocturia 07/05/2015 Genitourinary/Nephrology No urinary incontinence 07/05/2015 Musculoskeletal No stiffness 07/05/2015 Musculoskeletal No swelling 07/05/2015 Musculoskeletal No muscle weakness 07/05/2015 Musculoskeletal No myalgias 07/05/2015 Dermatologic No rash Dermatologic No sores Dermatologic No scar Neurologic No dizziness 07/05/2015 Neurologic No headache 1 Neurologic No neck pain 07/05/2015 Neurologic No syncope Psychiatric No anxiety 1 Psychiatric No depression 07/05/2015 Physical Exam Exam Name System Name It em Name Status Result Effective Dates Notes Full Exam - General 1994 Constitutional general appearance Development: well developed 05/14/2019 None Full Exam - General 1994 Constitutional general appearance Development: appears stated age 0905/14/2019 None Full Exam - General 1994 Constitutional general appearance Hygiene/Attention to Grooming: good hygiene 05/14/2019 None Full Exam - General 1994 Eyes conjunctiva/eyelids Overall: conjunctiva clear 05/14/2019 None Full Exam - General 1994 Eyes conjunctiva/eyelids Overall: cornea clear 05/14/2019 None Full Exam - General 1994 Eyes conjunctiva/eyelids Eyelid: rash 05/14/2019 None Full Exam - General 1994 Eyes conjunctiva/eyelids Eyelid: erythema 05/14/2019 None Full Exam - General 1994 Eyes pupils and irises Overall: pupils equal, round, reactive to light and accomodation 05/14/2019 None Full Exam - General 1994 Ears/Nose/Throat otoscopic exam Overall: external auditory canals clear 05/14/2019 None Full Exam - General 1995 Ears/Nose/Throat otoscopic exam Overall: tympanic membranes clear 05/14/2019 None Full Exam - General 1995 Ears/Nose/Throat lips/teeth/gingiva Overall: benign lips 05/14/2019 None Full Exam - General 1995 Ears/Nose/Throat lips/teeth/gingiva Overall: normal dentition 05/14/2019 None Full Exam - General 1995 Ears/Nose/Throat oral cavity/pharynx/larynx Overall: oral mucosa clear 05/14/2019 None Full Exam - General 1994 Ears/Nose/Throat oral cavity/pharynx/larynx Overall: oropharyngeal mucosa clear 05/14/2019 None Full Exam - General 1995 Ears/Nose/Throat oral cavity/pharynx/larynx Overall: hypopharynx benign 05/14/2019 None Full Exam - General 1994 Ears/Nose/Throat oral cavity/pharynx/larynx Overall: no masses 05/14/2019 None Full Exam - General 1994 Respiratory auscultation Overall: breath sounds clear bilaterally 05/14/2019 None Full Exam - General 1994 Respiratory respiratory effort/rhythm Overall: no retractions 05/14/2019 None Full Exam - General 1994 Respiratory respiratory effort/rhythm Overall: normal rate 05/14/2019 None Full Exam - General 1994 Cardiovascular extremities Overall: no clubbing 05/14/2019 None Full Exam - General 1994 Cardiovascular auscultation of heart Overall: regular rate 05/14/2019 None Full Exam - General 1994 Cardiovascular auscultation of heart Overall: normal heart sounds 05/14/2019 None Full Exam - General 1994 Abdomen abdominal exam Overall: no tenderness 05/14/2019 None Full Exam - General 1994 Abdomen abdominal exam Overall: normal bowel sounds 05/14/2019 None Full Exam - General 1994 Musculoskeletal spine, ribs and pelvis Overall: good posture 05/14/2019 None Full Exam - General 1994 Musculoskeletal head and neck Overall: head atraumatic 05/14/2019 None Full Exam - General 1994 Musculoskeletal head and neck Overall: cervical spine benign 05/14/2019 None Full Exam - General 1994 Neurologic cranial nerves Overall: crainial nerves 2 - 12 grossly intact 05/14/2019 None Full Exam - General 1994 Psychiatric orientation/consciousness Overall: oriented to person, place and time 05/14/2019 None Full Exam - General 1994 Psychiatric mood and affect Overall: normal mood and affect 05/14/2019 None Full Exam - General 1994 Constitutional general appearance Development: well developed 02/23/2019 None Full Exam - General 1994 Constitutional general appearance Development: appears stated age 0602/23/2019 None Full Exam - General 1994 Constitutional general appearance Hygiene/Attention to Grooming: good hygiene 02/23/2019 None Full Exam - General 1994 Eyes conjunctiva/eyelids Overall: conjunctiva clear 02/23/2019 None Full Exam - General 1994 Eyes conjunctiva/eyelids Overall: cornea clear 02/23/2019 None Full Exam - General 1994 Eyes conjunctiva/eyelids Overall: eyelids normal 02/23/2019 None Full Exam - General 1994 Eyes pupils and irises Overall: pupils equal, round, reactive to light and accomodation 02/23/2019 None Full Exam - General 1994 Ears/Nose/Throat otoscopic exam Overall: external auditory canals clear 02/23/2019 None Full Exam - General 1994 Ears/Nose/Throat otoscopic exam Overall: tympanic membranes clear 02/23/2019 None Full Exam - General 1995 Ears/Nose/Throat lips/teeth/gingiva Overall: benign lips 02/23/2019 None Full Exam - General 1995 Ears/Nose/Throat lips/teeth/gingiva Overall: normal dentition 02/23/2019 None Full Exam - General 1994 Ears/Nose/Throat oral cavity/pharynx/larynx Overall: oral mucosa clear 02/23/2019 None Full Exam - General 1994 Ears/Nose/Throat oral cavity/pharynx/larynx Overall: oropharyngeal mucosa clear 02/23/2019 None Full Exam - General 1994 Ears/Nose/Throat oral cavity/pharynx/larynx Overall: hypopharynx benign 02/23/2019 None Full Exam - General 1994 Ears/Nose/Throat oral cavity/pharynx/larynx Overall: no masses 02/23/2019 None Full Exam - General 1994 Respiratory auscultation Overall: breath sounds clear bilaterally 02/23/2019 None Full Exam - General 1994 Respiratory respiratory effort/rhythm Overall: no retractions 02/23/2019 None Full Exam - General 1994 Respiratory respiratory effort/rhythm Overall: normal rate 02/23/2019 None Full Exam - General 1994 Cardiovascular extremities Overall: no clubbing 02/23/2019 None Full Exam - General 1994 Cardiovascular auscultation of heart Overall: regular rate 02/23/2019 None Full Exam - General 1994 Cardiovascular auscultation of heart Overall: normal heart sounds 02/23/2019 None Full Exam - General 1994 Abdomen abdominal exam Overall: no tenderness 02/23/2019 None Full Exam - General 1994 Abdomen abdominal exam Overall: normal bowel sounds 02/23/2019 None Full Exam - General 1994 Musculoskeletal spine, ribs and pelvis Overall: good posture 02/23/2019 None Full Exam - General 1994 Musculoskeletal head and neck Overall: head atraumatic 02/23/2019 None Full Exam - General 1994 Musculoskeletal head and neck Overall: cervical spine benign 02/23/2019 None Full Exam - General 1994 Integument inspection of skin Location: face 02/23/2019 on 3 on left spiritism, 2 on right spiritism and 1 each on dorsum of hands bilaterally Full Exam - General 1994 Neurologic deep tendon reflexes Overall: deep tendon reflexes intact 02/23/2019 None Full Exam - General 1994 Neurologic cranial nerves Overall: crainial nerves 2 - 12 grossly intact 02/23/2019 None Full Exam - General 1994 Psychiatric orientation/consciousness Overall: oriented to person, place and time 02/23/2019 None Full Exam - General 1994 Psychiatric mood and affect Overall: normal mood and affect 02/23/2019 None Full Exam - General 1994 Constitutional general appearance Development: well developed 10/03/2018 None Full Exam - General 1994 Constitutional general appearance Development: appears stated age 0110/03/2018 None Full Exam - General 1994 Constitutional general appearance Hygiene/Attention to Grooming: good hygiene 10/03/2018 None Full Exam - General 1994 Eyes conjunctiva/eyelids Overall: conjunctiva clear 10/03/2018 None Full Exam - General 1994 Eyes conjunctiva/eyelids Overall: cornea clear 10/03/2018 None Full Exam - General 1994 Eyes conjunctiva/eyelids Overall: eyelids normal 10/03/2018 None Full Exam - General 1994 Eyes pupils and irises Overall: pupils equal, round, reactive to light and accomodation 10/03/2018 None Full Exam - General 1994 Ears/Nose/Throat otoscopic exam Overall: external auditory canals clear 10/03/2018 None Full Exam - General 1994 Ears/Nose/Throat otoscopic exam Overall: tympanic membranes clear 10/03/2018 None Full Exam - General 1994 Ears/Nose/Throat lips/teeth/gingiva Overall: benign lips 10/03/2018 None Full Exam - General 1994 Ears/Nose/Throat lips/teeth/gingiva Overall: normal dentition 10/03/2018 None Full Exam - General 1994 Ears/Nose/Throat oral cavity/pharynx/larynx Overall: oral mucosa clear 10/03/2018 None Full Exam - General 1995 Ears/Nose/Throat oral cavity/pharynx/larynx Overall: oropharyngeal mucosa clear 10/03/2018 None Full Exam - General 1994 Ears/Nose/Throat oral cavity/pharynx/larynx Overall: hypopharynx benign 10/03/2018 None Full Exam - General 1994 Ears/Nose/Throat oral cavity/pharynx/larynx Overall: no masses 10/03/2018 None Full Exam - General 1994 Respiratory auscultation Overall: breath sounds clear bilaterally 10/03/2018 None Full Exam - General 1994 Respiratory respiratory effort/rhythm Overall: no retractions 10/03/2018 None Full Exam - General 1994 Respiratory respiratory effort/rhythm Overall: normal rate 10/03/2018 None Full Exam - General 1994 Cardiovascular extremities Overall: no clubbing 10/03/2018 None Full Exam - General 1994 Cardiovascular auscultation of heart Overall: regular rate 10/03/2018 None Full Exam - General 1994 Cardiovascular auscultation of heart Overall: normal heart sounds 10/03/2018 None Full Exam - General 1994 Abdomen abdominal exam Overall: no tenderness 10/03/2018 None Full Exam - General 1994 Abdomen abdominal exam Overall: normal bowel sounds 10/03/2018 None Full Exam - General 1994 Musculoskeletal spine, ribs and pelvis Overall: good posture 10/03/2018 None Full Exam - General 1994 Musculoskeletal head and neck Overall: head atraumatic 10/03/2018 None Full Exam - General 1994 Musculoskeletal head and neck Overall: cervical spine benign 10/03/2018 None Full Exam - General 1994 Neurologic deep tendon reflexes Overall: deep tendon reflexes intact 10/03/2018 None Full Exam - General 1994 Neurologic cranial nerves Overall: crainial nerves 2 - 12 grossly intact 10/03/2018 None Full Exam - General 1994 Psychiatric orientation/consciousness Overall: oriented to person, place and time 10/03/2018 None Full Exam - General 1994 Psychiatric mood and affect Overall: normal mood and affect 10/03/2018 None Full Exam - General 1994 Constitutional general appearance Development: well developed 08/25/2018 None Full Exam - General 1994 Constitutional general appearance Development: appears stated age 1208/25/2018 None Full Exam - General 1994 Constitutional general appearance Hygiene/Attention to Grooming: good hygiene 08/25/2018 None Full Exam - General 1994 Eyes conjunctiva/eyelids Overall: conjunctiva clear 08/25/2018 None Full Exam - General 1994 Eyes conjunctiva/eyelids Overall: cornea clear 08/25/2018 None Full Exam - General 1994 Eyes conjunctiva/eyelids Overall: eyelids normal 08/25/2018 None Full Exam - General 1994 Eyes pupils and irises Overall: pupils equal, round, reactive to light and accomodation 08/25/2018 None Full Exam - General 1994 Ears/Nose/Throat otoscopic exam Overall: external auditory canals clear 08/25/2018 None Full Exam - General 1994 Ears/Nose/Throat otoscopic exam Overall: tympanic membranes clear 08/25/2018 None Full Exam - General 1994 Ears/Nose/Throat lips/teeth/gingiva Overall: benign lips 08/25/2018 None Full Exam - General 1994 Ears/Nose/Throat lips/teeth/gingiva Overall: normal dentition 08/25/2018 None Full Exam - General 1994 Ears/Nose/Throat oral cavity/pharynx/larynx Overall: oral mucosa clear 08/25/2018 None Full Exam - General 1994 Ears/Nose/Throat oral cavity/pharynx/larynx Overall: oropharyngeal mucosa clear 08/25/2018 None Full Exam - General 1994 Ears/Nose/Throat oral cavity/pharynx/larynx Overall: hypopharynx benign 08/25/2018 None Full Exam - General 1994 Ears/Nose/Throat oral cavity/pharynx/larynx Overall: no masses 08/25/2018 None Full Exam - General 1994 Respiratory auscultation Overall: breath sounds clear bilaterally 08/25/2018 None Full Exam - General 1994 Respiratory respiratory effort/rhythm Overall: no retractions 08/25/2018 None Full Exam - General 1994 Respiratory respiratory effort/rhythm Overall: normal rate 08/25/2018 None Full Exam - General 1994 Cardiovascular extremities Overall: no clubbing 08/25/2018 None Full Exam - General 1994 Cardiovascular auscultation of heart Overall: regular rate 08/25/2018 None Full Exam - General 1994 Cardiovascular auscultation of heart Overall: normal heart sounds 08/25/2018 None Full Exam - General 1994 Abdomen abdominal exam Overall: no tenderness 08/25/2018 None Full Exam - General 1994 Abdomen abdominal exam Overall: normal bowel sounds 08/25/2018 None Full Exam - General 1994 Musculoskeletal spine, ribs and pelvis Overall: good posture 08/25/2018 None Full Exam - General 1994 Musculoskeletal head and neck Overall: head atraumatic 08/25/2018 None Full Exam - General 1994 Musculoskeletal head and neck Overall: cervical spine benign 08/25/2018 None Full Exam - General 1994 Integument inspection of skin Location: face 08/25/2018 on 3 on left spiritism, 2 on right spiritism and 1 each on dorsum of hands bilaterally Full Exam - General 1994 Neurologic deep tendon reflexes Overall: deep tendon reflexes intact 08/25/2018 None Full Exam - General 1994 Neurologic cranial nerves Overall: crainial nerves 2 - 12 grossly intact 08/25/2018 None Full Exam - General 1994 Psychiatric orientation/consciousness Overall: oriented to person, place and time 08/25/2018 None Full Exam - General 1994 Psychiatric mood and affect Overall: normal mood and affect 08/25/2018 None Full Exam - Dermatology Constitutional general appearance Overall: well nourished 06/16/2018 None Full Exam - Dermatology Constitutional general appearance Overall: in no acute distress 06/16/2018 None Full Exam - Dermatology Constitutional general appearance Overall: well developed 06/16/2018 None Full Exam - Dermatology Eyes conjunctiva/eyelids Overall: clear conjunctiva bilaterally 06/16/2018 None Full Exam - Dermatology Eyes conjunctiva/eyelids Overall: clear corneas 06/16/2018 None Full Exam - Dermatology Eyes conjunctiva/eyelids Overall: normal eyelids 06/16/2018 None Full Exam - Dermatology Ears/Nose/Throat lips/teeth/gingiva Overall: benign lips 06/16/2018 None Full Exam - Dermatology Respiratory respiratory effort/rhythm Overall: normal rate 06/16/2018 None Full Exam - Dermatology Respiratory respiratory effort/rhythm Overall: no retractions 06/16/2018 None Full Exam - Dermatology Musculoskeletal gait and station Overall: normal gait 06/16/2018 None Full Exam - Dermatology Musculoskeletal gait and station Overall: normal station 06/16/2018 None Full Exam - Dermatology Musculoskeletal head and neck Overall: head atraumatic 06/16/2018 None Full Exam - Dermatology Integument insp & palp - left upper extremity Lesion: vesicle 06/16/2018 None Full Exam - Dermatology Integument insp & palp - left upper extremity Location: on the forearm 06/16/2018 None Full Exam - Dermatology Integument insp & palp - left upper extremity Location: in the antecubital fossa 06/16/2018 None Full Exam - Dermatology Integument insp & palp - left upper extremity Color: erythematous 06/16/2018 None Full Exam - Dermatology Integument insp & palp - right upper extremity Lesion: vesicle 06/16/2018 None Full Exam - Dermatology Integument insp & palp - right upper extremity Location: on the forearm 06/16/2018 None Full Exam - Dermatology Integument insp & palp - right upper extremity Location: in the antecubital fossa 06/16/2018 None Full Exam - Dermatology Integument insp & palp - right upper extremity Color: erythematous 06/16/2018 None Full Exam - Dermatology Psychiatric orientation Overall: oriented to person, place and time 06/16/2018 None Full Exam - Dermatology Psychiatric mood and affect Overall: normal mood and affect 06/16/2018 None Full Exam - General 1994 Constitutional general appearance Development: well developed 04/24/2018 None Full Exam - General 1994 Constitutional general appearance Development: appears stated age 0804/24/2018 None Full Exam - General 1994 Constitutional general appearance Hygiene/Attention to Grooming: good hygiene 04/24/2018 None Full Exam - General 1994 Eyes conjunctiva/eyelids Overall: conjunctiva clear 04/24/2018 None Full Exam - General 1994 Eyes conjunctiva/eyelids Overall: cornea clear 04/24/2018 None Full Exam - General 1994 Eyes pupils and irises Overall: pupils equal, round, reactive to light and accomodation 04/24/2018 None Full Exam - General 1994 Ears/Nose/Throat otoscopic exam Overall: external auditory canals clear 04/24/2018 None Full Exam - General 1994 Ears/Nose/Throat otoscopic exam Overall: tympanic membranes clear 04/24/2018 None Full Exam - General 1994 Ears/Nose/Throat lips/teeth/gingiva Overall: benign lips 04/24/2018 None Full Exam - General 1994 Ears/Nose/Throat lips/teeth/gingiva Overall: normal dentition 04/24/2018 None Full Exam - General 1994 Ears/Nose/Throat oral cavity/pharynx/larynx Overall: oral mucosa clear 04/24/2018 None Full Exam - General 1994 Ears/Nose/Throat oral cavity/pharynx/larynx Overall: oropharyngeal mucosa clear 04/24/2018 None Full Exam - General 1994 Ears/Nose/Throat oral cavity/pharynx/larynx Overall: hypopharynx benign 04/24/2018 None Full Exam - General 1994 Ears/Nose/Throat oral cavity/pharynx/larynx Overall: no masses 04/24/2018 None Full Exam - General 1994 Respiratory auscultation Overall: breath sounds clear bilaterally 04/24/2018 None Full Exam - General 1994 Respiratory respiratory effort/rhythm Overall: no retractions 04/24/2018 None Full Exam - General 1994 Respiratory respiratory effort/rhythm Overall: normal rate 04/24/2018 None Full Exam - General 1994 Cardiovascular extremities Overall: no clubbing 04/24/2018 None Full Exam - General 1994 Cardiovascular auscultation of heart Overall: regular rate 04/24/2018 None Full Exam - General 1994 Cardiovascular auscultation of heart Overall: normal heart sounds 04/24/2018 None Full Exam - General 1994 Abdomen abdominal exam Overall: no tenderness 04/24/2018 None Full Exam - General 1994 Abdomen abdominal exam Overall: normal bowel sounds 04/24/2018 None Full Exam - General 1994 Musculoskeletal spine, ribs and pelvis Overall: good posture 04/24/2018 None Full Exam - General 1994 Musculoskeletal head and neck Overall: head atraumatic 04/24/2018 None Full Exam - General 1994 Musculoskeletal head and neck Overall: cervical spine benign 04/24/2018 None Full Exam - General 1994 Neurologic cranial nerves Overall: crainial nerves 2 - 12 grossly intact 04/24/2018 None Full Exam - General 1994 Psychiatric orientation/consciousness Overall: oriented to person, place and time 04/24/2018 None Full Exam - General 1994 Psychiatric mood and affect Overall: normal mood and affect 04/24/2018 None Full Exam - General 1994 Eyes conjunctiva/eyelids Eyelid: rash 04/24/2018 None Full Exam - General 1994 Eyes conjunctiva/eyelids Eyelid: erythema 04/24/2018 None Full Exam - General 1994 Constitutional general appearance Development: well developed 11/19/2017 None Full Exam - General 1994 Constitutional general appearance Development: appears stated age 0311/19/2017 None Full Exam - General 1994 Constitutional general appearance Hygiene/Attention to Grooming: good hygiene 11/19/2017 None Full Exam - General 1994 Eyes conjunctiva/eyelids Overall: conjunctiva clear 11/19/2017 None Full Exam - General 1994 Eyes conjunctiva/eyelids Overall: cornea clear 11/19/2017 None Full Exam - General 1994 Eyes conjunctiva/eyelids Overall: eyelids normal 11/19/2017 None Full Exam - General 1994 Eyes pupils and irises Overall: pupils equal, round, reactive to light and accomodation 11/19/2017 None Full Exam - General 1994 Ears/Nose/Throat otoscopic exam Overall: external auditory canals clear 11/19/2017 None Full Exam - General 1994 Ears/Nose/Throat otoscopic exam Overall: tympanic membranes clear 11/19/2017 None Full Exam - General 1994 Ears/Nose/Throat lips/teeth/gingiva Overall: benign lips 11/19/2017 None Full Exam - General 1994 Ears/Nose/Throat lips/teeth/gingiva Overall: normal dentition 11/19/2017 None Full Exam - General 1994 Ears/Nose/Throat oral cavity/pharynx/larynx Overall: oral mucosa clear 11/19/2017 None Full Exam - General 1994 Ears/Nose/Throat oral cavity/pharynx/larynx Overall: oropharyngeal mucosa clear 11/19/2017 None Full Exam - General 1994 Ears/Nose/Throat oral cavity/pharynx/larynx Overall: hypopharynx benign 11/19/2017 None Full Exam - General 1994 Ears/Nose/Throat oral cavity/pharynx/larynx Overall: no masses 11/19/2017 None Full Exam - General 1994 Respiratory auscultation Overall: breath sounds clear bilaterally 11/19/2017 None Full Exam - General 1994 Respiratory respiratory effort/rhythm Overall: no retractions 11/19/2017 None Full Exam - General 1994 Respiratory respiratory effort/rhythm Overall: normal rate 11/19/2017 None Full Exam - General 1994 Cardiovascular extremities Overall: no clubbing 11/19/2017 None Full Exam - General 1994 Cardiovascular auscultation of heart Overall: regular rate 11/19/2017 None Full Exam - General 1994 Cardiovascular auscultation of heart Overall: normal heart sounds 11/19/2017 None Full Exam - General 1994 Abdomen abdominal exam Overall: no tenderness 11/19/2017 None Full Exam - General 1994 Abdomen abdominal exam Overall: normal bowel sounds 11/19/2017 None Full Exam - General 1994 Musculoskeletal spine, ribs and pelvis Overall: good posture 11/19/2017 None Full Exam - General 1994 Musculoskeletal head and neck Overall: head atraumatic 11/19/2017 None Full Exam - General 1994 Musculoskeletal head and neck Overall: cervical spine benign 11/19/2017 None Full Exam - General 1994 Neurologic deep tendon reflexes Overall: deep tendon reflexes intact 11/19/2017 None Full Exam - General 1994 Neurologic cranial nerves Overall: crainial nerves 2 - 12 grossly intact 11/19/2017 None Full Exam - General 1994 Psychiatric orientation/consciousness Overall: oriented to person, place and time 11/19/2017 None Full Exam - General 1994 Psychiatric mood and affect Overall: normal mood and affect 11/19/2017 None Full Exam - General 1994 Constitutional general appearance Development: well developed 11/04/2017 None Full Exam - General 1994 Constitutional general appearance Development: appears stated age 0211/04/2017 None Full Exam - General 1994 Constitutional general appearance Hygiene/Attention to Grooming: good hygiene 11/04/2017 None Full Exam - General 1994 Eyes conjunctiva/eyelids Overall: conjunctiva clear 11/04/2017 None Full Exam - General 1994 Eyes conjunctiva/eyelids Overall: cornea clear 11/04/2017 None Full Exam - General 1994 Eyes conjunctiva/eyelids Overall: eyelids normal 11/04/2017 None Full Exam - General 1994 Eyes pupils and irises Overall: pupils equal, round, reactive to light and accomodation 11/04/2017 None Full Exam - General 1994 Ears/Nose/Throat otoscopic exam Overall: external auditory canals clear 11/04/2017 None Full Exam - General 1994 Ears/Nose/Throat otoscopic exam Overall: tympanic membranes clear 11/04/2017 None Full Exam - General 1994 Ears/Nose/Throat lips/teeth/gingiva Overall: benign lips 11/04/2017 None Full Exam - General 1994 Ears/Nose/Throat lips/teeth/gingiva Overall: normal dentition 11/04/2017 None Full Exam - General 1994 Ears/Nose/Throat oral cavity/pharynx/larynx Overall: oral mucosa clear 11/04/2017 None Full Exam - General 1994 Ears/Nose/Throat oral cavity/pharynx/larynx Overall: oropharyngeal mucosa clear 11/04/2017 None Full Exam - General 1995 Ears/Nose/Throat oral cavity/pharynx/larynx Overall: hypopharynx benign 11/04/2017 None Full Exam - General 1994 Ears/Nose/Throat oral cavity/pharynx/larynx Overall: no masses 11/04/2017 None Full Exam - General 1994 Respiratory auscultation Overall: breath sounds clear bilaterally 11/04/2017 None Full Exam - General 1994 Respiratory respiratory effort/rhythm Overall: no retractions 11/04/2017 None Full Exam - General 1994 Respiratory respiratory effort/rhythm Overall: normal rate 11/04/2017 None Full Exam - General 1994 Cardiovascular extremities Overall: no clubbing 11/04/2017 None Full Exam - General 1994 Cardiovascular auscultation of heart Overall: regular rate 11/04/2017 None Full Exam - General 1994 Cardiovascular auscultation of heart Overall: normal heart sounds 11/04/2017 None Full Exam - General 1994 Abdomen abdominal exam Overall: no tenderness 11/04/2017 None Full Exam - General 1994 Abdomen abdominal exam Overall: normal bowel sounds 11/04/2017 None Full Exam - General 1994 Musculoskeletal spine, ribs and pelvis Overall: good posture 11/04/2017 None Full Exam - General 1994 Musculoskeletal head and neck Overall: head atraumatic 11/04/2017 None Full Exam - General 1994 Musculoskeletal head and neck Overall: cervical spine benign 11/04/2017 None Full Exam - General 1994 Neurologic deep tendon reflexes Overall: deep tendon reflexes intact 11/04/2017 None Full Exam - General 1994 Neurologic cranial nerves Overall: crainial nerves 2 - 12 grossly intact 11/04/2017 None Full Exam - General 1994 Psychiatric orientation/consciousness Overall: oriented to person, place and time 11/04/2017 None Full Exam - General 1994 Psychiatric mood and affect Overall: normal mood and affect 11/04/2017 None Full Exam - General 1994 Integument inspection of skin Location: face 11/04/2017 on 3 on left spiritism, 2 on right spiritism and 1 each on dorsum of hands bilaterally Full Exam - General 1994 Constitutional general appearance Development: well developed 10/07/2017 None Full Exam - General 1994 Constitutional general appearance Development: appears stated age 0110/07/2017 None Full Exam - General 1994 Constitutional general appearance Hygiene/Attention to Grooming: good hygiene 10/07/2017 None Full Exam - General 1994 Eyes conjunctiva/eyelids Overall: conjunctiva clear 10/07/2017 None Full Exam - General 1994 Eyes conjunctiva/eyelids Overall: cornea clear 10/07/2017 None Full Exam - General 1994 Eyes conjunctiva/eyelids Overall: eyelids normal 10/07/2017 None Full Exam [...] None Full Exam - General 1994 Eyes conjunctiva/eyelids Overall: conjunctiva clear 06/03/2017 None Full Exam - General 1994 Eyes conjunctiva/eyelids Overall: cornea clear 06/03/2017 None Full Exam - General 1994 Eyes conjunctiva/eyelids Overall: eyelids normal 06/03/2017 None Full Exam [...] None Full Exam - General 1994 Eyes conjunctiva/eyelids Overall: conjunctiva clear 03/19/2017 None Full Exam - General 1994 Eyes conjunctiva/eyelids Overall: cornea clear 03/19/2017 None Full Exam - General 1994 Eyes conjunctiva/eyelids Overall: eyelids normal 03/19/2017 None Full Exam [...] Cardiovascular extremities Edema present: severity 1+ - 4+: 1-2+ 01/21/2017 R>L Full Exam - General 1994 Psychiatric orientation/consciousness Overall: oriented to person, place and time 01/21/2017 None Full Exam - General 1994 Neurologic cranial nerves Overall: crainial nerves 2 - 12 grossly intact 01/21/2017 None Full Exam - General 1994 Integument inspection of skin Location: right leg 01/21/2017 hematoma right anterior s hin Full Exam - General 1994 Constitutional general appearance Development: well developed 12/04/2016 None Full Exam - General 1994 Constitutional general appearance Development: appears stated age 0312/04/2016 None Full Exam - General 1994 Constitutional general appearance Hygiene/Attention to Grooming: good hygiene 12/04/2016 None Full Exam - General 1994 Eyes conjunctiva/eyelids Overall: conjunctiva clear 12/04/2016 None Full Exam - General 1994 Eyes conjunctiva/eyelids Overall: cornea clear 12/04/2016 None Full Exam - General 1994 Eyes conjunctiva/eyelids Overall: eyelids normal 12/04/2016 None Full Exam [...] dentition 12/04/2016 None Full Exam - General 1994 [...] None Full Exam - General 1994 Eyes conjunctiva/eyelids Overall: conjunctiva clear 11/16/2016 None Full Exam - General 1994 Eyes conjunctiva/eyelids Overall: eyelids normal 11/16/2016 None Full Exam [...] None Full Exam - General 1994 Eyes conjunctiva/eyelids Overall: conjunctiva clear 11/14/2016 None Full Exam - General 1994 Eyes conjunctiva/eyelids Overall: cornea clear 11/14/2016 None Full Exam - General 1994 Eyes conjunctiva/eyelids Overall: eyelids normal 11/14/2016 None Full Exam [...] ENT Ears/Nose/Throat otoscopic exam Left tympanic membrane: air-fluid le jeanne 09/17/2016 None Full Exam - ENT Ears/Nose/Throat otoscopic exam Right tympanic membrane: air-fluid level 09/17/2016 None Full Exam - ENT Ears/Nose/Throat lips/teeth/gingiva Overall: benign lips 09/17/2016 None Full Exam [...] Neurologic orientation Overall: oriented to person, place a nd time 09/17/2016 None Full Exam - ENT Respiratory auscultation Right lower lung field: expiratory w heezes 09/17/2016 None Full Exam - ENT Respiratory auscultation Left lower lung field: expiratory wh eezes 09/17/2016 None Full Exam - Orthopedics Constitutional general appearance Overall: well nourished 08/03/2016 None Full Exam - Orthopedics Constitutional general appearance Overall: well developed 08/03/2016 None Full Exam - Orthopedics Constitutional general appearance Overall: in no acute distress 08/03/2016 None Full Exam - Orthopedics Eyes conjunctiva/eyelids Overall: conjunctiva clear 08/03/2016 None Full Exam - Orthopedics Eyes conjunctiva/eyelids Overall: eyelids normal 08/03/2016 None Full Exam [...] None Full Exam - Orthopedics MS: right lo wer extremity insp & palp - RLE Lower leg: swelling 08/03/2016 anterior - hematoma Full Exam - General 1994 Constitutional general appearance Development: well developed 07/25/2016 None Full Exam - General 1994 Constitutional general appearance Development: appears stated age 1107/25/2016 None Full Exam - General 1994 Constitutional general appearance Hygiene/Attention to Grooming: good hygiene 07/25/2016 None Full Exam - General 1994 Eyes conjunctiva/eyelids Overall: conjunctiva clear 07/25/2016 None Full Exam - General 1994 Eyes conjunctiva/eyelids Overall: cornea clear 07/25/2016 None Full Exam - General 1994 Eyes conjunctiva/eyelids Overall: eyelids normal 07/25/2016 None Full Exam [...] None Full Exam - General 1994 Eyes conjunctiva/eyelids Overall: conjunctiva clear 03/22/2016 None Full Exam - General 1994 Eyes conjunctiva/eyelids Overall: cornea clear 03/22/2016 None Full Exam - General 1994 Eyes conjunctiva/eyelids Overall: eyelids normal 03/22/2016 None Full Exam [...] None Full Exam - General 1994 Eyes conjunctiva/eyelids Overall: conjunctiva clear 01/12/2016 None Full Exam - General 1994 Eyes conjunctiva/eyelids Overall: cornea clear 01/12/2016 None Full Exam - General 1994 Eyes conjunctiva/eyelids Overall: eyelids normal 01/12/2016 None Full Exam [...] None Full Exam - General 1994 Eyes conjunctiva/eyelids Overall: conjunctiva clear 10/13/2015 None Full Exam - General 1994 Eyes conjunctiva/eyelids Overall: cornea clear 10/13/2015 None Full Exam - General 1994 Eyes conjunctiva/eyelids Overall: eyelids normal 10/13/2015 None Full Exam [...] None Full Exam - General 1994 Eyes conjunctiva/eyelids Overall: conjunctiva clear 09/13/2015 None Full Exam - General 1994 Eyes conjunctiva/eyelids Overall: cornea clear 09/13/2015 None Full Exam - General 1994 Eyes conjunctiva/eyelids Overall: eyelids normal 09/13/2015 None Full Exam [...] None Full Exam - General 1994 Eyes conjunctiva/eyelids Overall: conjunctiva clear 07/05/2015 None Full Exam - General 1994 Eyes conjunctiva/eyelids Overall: cornea clear 07/05/2015 None Full Exam - General 1994 Eyes conjunctiva/eyelids Overall: eyelids normal 07/05/2015 None Full Exam [...] affect 07/05/2015 None Procedures Procedure Codes Date TRIAMCINOLONE ACET I [place] NOS CPT-4: J3301 10/03/2018 TRIAMCINOLONE ACET I [place] NOS CPT-4: J3301 08/25/2018 THER/PROPH/DIAG INJ SC/IM CPT-4: 43572 06/16/2018 TRIAMCINOLONE ACET I [place] NOS CPT-4: J3301 06/16/2018 PPPS, SUBSEQ VISIT CPT- 4: G0439 11/19/2017 DESTRUCT PREMALG LESION CPT-4: 99509 11/04/2017 DESTRUCT PREMALG LES 2-14 CPT-4: 76292 11/04/2017 PPPS, SUBSEQ VISIT CPT- 4: G0439 11/16/2016 THER/PROPH/DIAG INJ SC/IM CPT-4: 13094 07/25/2016 TRIAMCINOLONE ACET I [place] NOS CPT-4: J3301 07/25/2016 Vital Signs Date Vital 05/14/2019 Blood Pressure 1: 132/68 Code: 8480-6 BMI: 39.6 Code: 35833-4 Heart Rate 1: 53 bpm Height: 5'7" SpO2: 95% Weight: 253 lbs 02/23/2019 Blood Pressure 1: 164/72 Code: 8480-6 BMI: 41.0 Code: 44650-5 Heart Rate 1: 46 bpm Height: 5'7" SpO2: 95% Weight: 262 lbs 10/03/2018 Blood Pressure 1: 134/74 Code: 8480-6 BMI: 40.1 Code: 50584-3 Heart Rate 1: 55 bpm Height: 5'7" SpO2: 97% Temperature: 36.7 (C ) / 98.1 (F) Weight: 256 lbs 08/25/2018 Blood Pressure 1: 128/68 Code: 8480-6 BMI: 39.8 Code: 56899-9 Heart Rate 1: 55 bpm Height: 5'7" SpO2: 97% Weight: 254 lbs 06/16/2018 Blood Pressure 1: 120/67 Code: 8480-6 BMI: 40.1 Code: 87640-7 Heart Rate 1: 83 bpm Height: 5'7" SpO2: 95% Weight: 256 lbs 04/24/2018 Blood Pressure 1: 134/76 Code: 8480-6 BMI: 39.3 Code: 97819-5 Heart Rate 1: 55 bpm Height: 5'7" SpO2: 95% Weight: 251 lbs 11/19/2017 Blood Pressure 1: 130/62 Code: 8480-6 BMI: 38.1 Code: 65463-4 Heart Rate 1: 73 bpm Height: 5'7" SpO2: 93% Waist Measure (cm): 99 cm Weight: 243 lbs 11/04/2017 Blood Pressure 1: 136/68 Code: 8480-6 BMI: 38.2 Code: 28670-6 Heart Rate 1: 61 bpm Height: 5'7" SpO2: 98% Weight: 244 lbs 10/07/2017 Blood Pressure 1: 150/70 Code: 8480-6 BMI: 39.5 Code: 67297-0 Heart Rate 1: 65 bpm Height: 5'7" SpO2: 97% Weight: 252 lbs 06/03/2017 Blood Pressure 1: 140/70 Code: 8480-6 BMI: 37.9 Code: 20204-2 Heart Rate 1: 66 bpm Height: 5'7" SpO2: 96% Weight: 242 lbs 03/19/2017 Blood Pressure 1: 136/82 Code: 8480-6 BMI: 38.8 Code: 67859-5 Heart Rate 1: 58 bpm Height: 5'7" SpO2: 94% Weight: 247 lbs 8 oz 01/21/2017 Blood Pressure 1: 136/74 Code: 8480-6 BMI: 39.1 Code: 77072-8 Heart Rate 1: 58 bpm Height: 5'7" SpO2: 97% Weight: 249 lbs 8 oz 12/04/2016 Blood Pressure 1: 136/72 Code: 8480-6 Heart Rate 1: 55 bpm Height: 5'7" SpO2: 99% Weight: 11/16/2016 Blood Pressure 1: 124/76 Code: 8480-6 BMI: 39.2 Code: 43633-8 Heart Rate 1: 62 bpm Height: 5'7" SpO2: 96% Waist Measure (cm): 104 cm Weight: 250 lbs 11/14/2016 Blood Pressure 1: 152/60 Code: 8480-6 BMI: 39.8 Code: 60461-3 Heart Rate 1: 63 bpm Height: 5'7" SpO2: 94% Weight: 254 lbs 09/17/2016 Blood Pressure 1: 138/70 Code: 8480-6 BMI: 40.3 Code: 96466-3 Heart Rate 1: 60 bpm Height: 5'7" SpO2: 96% Weight: 257 lbs 08/03/2016 Blood Pressure 1: 148/78 Code: 8480-6 BMI: 39.9 Code: 01017-9 Heart Rate 1: 50 bpm Height: 5'7" SpO2: 97% Weight: 255 lbs 07/25/2016 Blood Pressure 1: 130/68 Code: 8480-6 BMI: 39.9 Code: 62480-4 Heart Rate 1: 61 bpm Height: 5'7" SpO2: 95% Weight: 255 lbs 03/22/2016 Blood Pressure 1: 136/76 Code: 8480-6 BMI: 39.0 Code: 80458-6 Heart Rate 1: 60 bpm Height: 5'7" SpO2: 98% Weight: 249 lbs 01/12/2016 Blood Pressure 1: 146/76 Code: 8480-6 BMI: 37.8 Code: 75585-5 Heart Rate 1: 59 bpm Height: 5'7" SpO2: 98% Weight: 241 lbs 8 oz 10/13/2015 Blood Pressure 1: 136/72 Code: 8480-6 BMI: 37.6 Code: 79504-1 Heart Rate 1: 70 bpm Height: 5'7" SpO2: 99% Weight: 240 lbs 09/13/2015 Blood Pressure 1: 140/80 Code: 8480-6 BMI: 37.2 Code: 62041-3 Heart Rate 1: 64 bpm Height: 5'7" SpO2: 97% Weight: 237 lbs 8 oz 07/05/2015 Blood Pressure 1: 170/84 Code: 8480-6 Blood Pressure 1: 130/70 Code: 8480-6 BMI: 35.9 Code: 12216-3 Heart Rate 1: 67 bpm Height: 5'7" SpO2: 95% Weight: 229 lbs Functional Status No Functional Status data History of Present Illness Symptom Name Status Resu lt Effective Date Notes Quality chronic 05/14/2019 None Quality primary hypert ension 05/14/2019 None Onset and Resolution o ngoing 05/14/2019 None Onset of Symptom durin g adulthood 05/14/2019 None Blood Pressure Values patient checking blood pressure at home - did not bring in readings 05/14/2019 -Checks occasionally Alleviating Factors De nies medication 05/14/2019 None Pertinent Findings Den ies dizziness 05/14/2019 None Pertinent Findings dys pnea 05/14/2019 with activity Pertinent Findings edema 05/14/2019 if he sits for too long Onset and Resolution g radual in onset 05/14/2019 None Onset of Symptom durin g adulthood 05/14/2019 None Significant Medications statin 05/14/2019 None Alleviating Factors me dication 05/14/2019 None Exacerbating Factors d iet 05/14/2019 None Pertinent Findings obe sity 05/14/2019 None Quality chronic 05/14/2019 None Quality chronic 02/23/2019 None Quality primary hypert ension 02/23/2019 None Onset and Resolution o ngoing 02/23/2019 None Onset of Symptom durin g adulthood 02/23/2019 None Blood Pressure Values patient checking blood pressure at home - did not bring in readings 02/23/2019 -Checks occasionally Pertinent Findings Den ies dizziness 02/23/2019 None Pertinent Findings dys pnea 02/23/2019 with activity Pertinent Findings edema 02/23/2019 if he sits for too long Onset and Resolution g radual in onset 02/23/2019 None Onset of Symptom durin g adulthood 02/23/2019 None Alleviating Factors me dication 02/23/2019 None Exacerbating Factors d iet 02/23/2019 None Significant Medications statin 02/23/2019 None Quality intermittent 02/23/2019 None Quality chest tightness 02/23/2019 None Quality breathlessness 02/23/2019 None Onset and Resolution o ngoing 02/23/2019 None Frequency of Episodes increasing 02/23/2019 None Alleviating Factors rest 02/23/2019 None Exacerbating Factors e xertion 02/23/2019 None Pertinent Findings obe sity 02/23/2019 None Quality chronic 02/23/2019 None Alleviating Factors De nies medication 02/23/2019 None Onset and Resolution s udden in onset 10/03/2018 None Onset of Symptom 3 day s ago 10/03/2018 None Pertinent Findings cough 10/03/2018 None Pertinent Findings dec reased energy level 10/03/2018 None Quality fullness 10/03/2018 None Quality pressure 10/03/2018 None Location Denies diffus solomon 10/03/2018 None Quality aching 10/03/2018 None Quality scratchy 10/03/2018 None Onset and Resolution s udden in onset 10/03/2018 None Onset of Symptom Denie s 3 days ago 10/03/2018 None Severity mild 10/03/2018 None Frequency of Episodes increasing 10/03/2018 None Significant Medical Conditions allergic rhinitis 10/03/2018 None Triggers allergens 10/03/2018 None Location on both sides 10/03/2018 None Quality primary hypert ension 08/25/2018 None Onset and Resolution o ngoing 08/25/2018 None Onset of Symptom durin g adulthood 08/25/2018 None Blood Pressure Values patient checking blood pressure at home - did not bring in readings 08/25/2018 -Checks occasionally Pertinent Findings diz ziness 08/25/2018 "minimal if any" Pertinent Findings dys pnea 08/25/2018 after he eats Pertinent Findings edema 08/25/2018 if he sits in a chair for too long Quality chronic 08/25/2018 None Quality stable 08/25/2018 None rash Location-Major on t he upper body 06/16/2018 None rash Color red 06/16/2018 None rash Onset and Resolution sudden in onset 06/16/2018 None rash Onset of Symptom 5 days ago 06/16/2018 None rash Pertinent Findings itching 06/16/2018 None neck pain Location in th e cervical spine 04/24/2018 None neck pain Quality interm ittent 04/24/2018 None neck pain Onset and Resolution gradual in onset 04/24/2018 None neck pain Pertinent Findings Denies cough 04/24/2018 None neck pain Pertinent Findings Denies weakness 04/24/2018 None neck pain Onset and Resolution resolved 04/24/2018 None eyelid edema Location on the right eyelid 04/24/2018 None eyelid edema Quality int ermittent 04/24/2018 None eyelid edema Onset and Resolution sudden in onset 04/24/2018 None eyelid edema Onset of Symptom 1 weeks ago 04/24/2018 None eyelid edema Pertinent Findings Denies fever 04/24/2018 None eyelid edema Pertinent Findings eye swelling 04/24/2018 None eyelid edema Pertinent Findings eye discharge 04/24/2018 None Annual Medicare Wellness Exam Alcohol Use drinks 2 days per week 11/19/2017 None Annual Medicare Wellness Exam Alcohol Use drinks 2 drinks per day 11/19/2017 None Annual Medicare Wellness Exam Aspirin Use yes 11/19/2017 None Annual Medicare Wellness Exam Blood Glucose (self reported) don't know 11/19/2017 No ne Annual Medicare Wellness Exam Blood Pressure (self reported) borderline (120/80 - 139/89) 018 None Annual Medicare Wellness Exam Choles terol (self reported) desireable (below 200) 11/19/2017 None Annual Medicare Wellness Exam Depres krystle (last 6 months) some of the time 11/19/2017 None Annual Medicare Wellness Exam Depres krystle or Hopelessness almost never 11/19/2017 None Annual Medicare Wellness Exam Descri be Your Health very good 11/19/2017 Non e Annual Medicare Wellness Exam Exerci se Habits does not exercise 11/19/2017 None Annual Medicare Wellness Exam Jamie velasquez Stress usually neha effectively 11/19/2017 None Annual Medicare Wellness Exam Hemagl obin A-1C (self reported) don't know 11/19/2017 No ne Annual Medicare Wellness Exam Hours of Sleep 8 11/19/2017 None Annual Medicare Wellness Exam Intera ction with Friends yes 11/19/2017 None Annual Medicare Wellness Exam Intere sts & Pleasure some of the time 11/19/2017 None Annual Medicare Wellness Exam Life S atisfaction very satisfied 11/19/2017 None Annual Medicare Wellness Exam Motor Vehicle Safety always fastens seat belt: y 11/20/19 18 None Annual Medicare Wellness Exam Motor Vehicle Safety drives after drinking: n 11/19/2017 None Annual Medicare Wellness Exam Motor Vehicle Safety rides with someone who has been drinking: n 11/19/2017 None Annual Medicare Wellness Exam Nutrition servings of fried food / high fat foods per day: 0 11/19/2017 None Annual Medicare Wellness Exam Nutrition servings of high fiber / whole grain per day: 2 11/19/2017 None Annual Medicare Wellness Exam Nutrition servings of vegetables / fruit per day: 4 11/19/2017 None Annual Medicare Wellness Exam Smokin g and Tobacco Use non smoker 11/19/2017 No ne Annual Medicare Wellness Exam Social & Emotional Support always 11/19/2017 None Annual Medicare Wellness Exam Stress some of the time 11/19/2017 None Annual Medicare Wellness Exam Sun Exposure protects skin when outdoors: y 11/19/2017 None hypertension Quality richard nina hypertension 11/04/2017 None hypertension Onset and Resolution ongoing 11/04/2017 None hypertension Onset of Symptom during adulthood 11/04/2017 None hypertension Blood Pressure Values patient checking blood pressure at home - did not bring in readings 11/04/2017 -Checks occasionally hypertension Pertinent Findings Denies dizziness 11/04/2017 None hypertension Pertinent Findings dyspnea 11/04/2017 "some" hypertension Pertinent Findings edema 11/04/2017 if he sits in a chair for too long myalgias Location diffus solomon 11/04/2017 on the left side myalgias Quality aching 11/04/2017 None myalgias Quality improvi ng 11/04/2017 None myalgias Onset and Resolution ongoing 11/04/2017 None myalgias Exacerbating Factors medication 11/04/2017 None skin lesion Location on the forehead 11/04/2017 None skin lesion Quality scab bed 11/04/2017 None skin lesion Onset and Resolution ongoing 11/04/2017 None hypertension Quality richard wood hypertension 10/07/2017 None hypertension Onset and Resolution [...] Findings Denies lightheadedness 06/03/2017 None hypertension Quality richard wood hypertension 06/03/2017 None chest pain/pressure Quality pressure [...] Pertinent Findings edema 03/19/2017 None anxiety Quality intermit tent 03/19/2017 None anxiety Onset and Resolution ongoing [...] right 01/21/2017 None lower leg pain Quality n umbness 01/21/2017 None lower leg pain Quality t ingling 01/21/2017 None lower leg pain Pertinent Findings numbness 01/21/2017 None lower leg pain Pertinent Findings redness 01/21/2017 None lower leg pain Pertinent Findings stiffness 01/21/2017 None lower leg pain Pertinent Findings swelling 01/21/2017 None lower leg pain Pertinent Findings tingling 01/21/2017 None lower leg pain Pertinent Findings warmth 01/21/2017 None lower leg pain Significant Medical C onditions prior injury 01/21/2017 None lower leg pain [...] redness 01/21/2017 None edema Location on the ri ght leg 01/21/2017 None edema Quality acute 01/21/2017 None edema Quality constant 01/21/2017 None edema Quality pitting 01/21/2017 None edema Quality painful 01/21/2017 None edema Exacerbating Factors standing 01/21/2017 None edema Exacerbating Factors activity 01/21/2017 None edema Alleviating Factors rest 01/21/2017 None edema Alleviating Factors recumbency 01/21/2017 None lower leg pain Onset of Symptom 8 days ago 01/21/2017 hit right benites on a trail er 8 days ago hypertension Onset and Resolution ongoing 12/04/2016 None hypertension Onset of Symptom during adulthood 12/04/2016 None hypertension Blood Pressure Values not checking blood pressure at home 12/04/2016 None hypertension Pertinent Findings anxiety 12/04/2016 None hypertension Pertinent Findings dizziness 12/04/2016 -mild hypertension Pertinent Findings dyspnea 12/04/2016 -mild hypertension Pertinent Findings edema 12/04/2016 None anxiety Quality intermit tent 12/04/2016 None anxiety Onset and Resolution ongoing 12/04/2016 None anxiety Onset of Symptom months ago 12/04/2016 None anxiety Pertinent Findings nightmares 12/04/2016 None hypertension Alleviating Factors medication 12/04/2016 None Annual Medicare Wellness Exam Alcohol Use drinks 1 drinks per day 11/16/2016 None Annual Medicare Wellness Exam Aspirin Use yes 11/16/2016 None Annual Medicare Wellness Exam Blood Glucose (self reported) don't know 11/16/2016 No ne Annual Medicare Wellness Exam Blood Pressure (self reported) borderline (120/80 - 139/89) 017 None Annual Medicare Wellness Exam Choles terol (self reported) don't know 11/16/2016 No ne Annual Medicare Wellness Exam Depres krystle (last 6 months) some of the time 11/16/2016 None Annual Medicare Wellness Exam Depres krystle or Hopelessness almost never 11/16/2016 None Annual Medicare Wellness Exam Descri be Your Health excellent 11/16/2016 Non e Annual Medicare Wellness Exam Exerci se Habits does not exercise 11/16/2016 None Annual Medicare Wellness Exam Handli ng Stress has problems coping 11/16/2016 None Annual Medicare Wellness Exam Hemagl obin A-1C (self reported) don't know 11/16/2016 No ne Annual Medicare Wellness Exam Hours of Sleep 8 11/16/2016 None Annual Medicare Wellness Exam Intera ction with Friends yes 11/16/2016 None Annual Medicare Wellness Exam Intere sts & Pleasure almost all of the time 11/16/2016 None Annual Medicare Wellness Exam Life S atisfaction very satisfied 11/16/2016 None Annual Medicare Wellness Exam Motor Vehicle Safety always fastens seat belt: y 11/17/19 17 None Annual Medicare Wellness Exam Motor Vehicle Safety drives after drinking: nn 11/16/2016 None Annual Medicare Wellness Exam Motor Vehicle Safety rides with someone who has been drinking: _ 11/16/2016 None Annual Medicare Wellness Exam Nutrition servings of fried food / high fat foods per day: 1 11/16/2016 None Annual Medicare Wellness Exam Nutrition servings of high fiber / whole grain per day: 2 11/16/2016 None Annual Medicare Wellness Exam Nutrition servings of vegetables / fruit per day: 4 11/16/2016 None Annual Medicare Wellness Exam Smokin g and Tobacco Use non smoker 11/16/2016 No ne Annual Medicare Wellness Exam Social & Emotional [...] Exacerbating Factors diet 11/14/2016 None anxiety Quality intermit tent 11/14/2016 None anxiety Onset and Resolution ongoing 11/14/2016 None anxiety Onset of Symptom months ago 11/14/2016 None anxiety Alleviating Factors medication 11/14/2016 None anxiety Pertinent Findings nightmares 11/14/2016 None cough Location in the alcira ng 09/17/2016 None cough Quality acute 09/17/2016 None cough Quality productive 09/17/2016 None cough Pertinent Findings Denies dyspnea 09/17/2016 None sore throat Location dif fusely 09/17/2016 None sore throat Quality acute 09/17/2016 [...] right leg 08/03/2016 None new lesion Quality const ant 08/03/2016 None new lesion Color red 08/03/2016 None new lesion Onset and Resolution sudden in onset 08/03/2016 None new lesion Onset of Symptom 2 weeks ago 08/03/2016 None gastroesophageal reflux Onset and Re solution ongoing 07/25/2016 None gastroesophageal reflux Onset of Symptom months ago 07/25/2016 None gastroesophageal reflux Frequency of Episodes most meals 07/25/2016 No ne gastroesophageal reflux Alleviating Factor s position change 07/25/2016 None gastroesophageal reflux Alleviating Factor s medication 07/25/2016 None gastroesophageal reflux Exacerbating Factors eating 07/25/2016 None chest pain/pressure Radiating the right arm 07/25/2016 tingling sensation chest pain/pressure Radiating the left arm 07/25/2016 tingling sensation- more so on this side chest pain/pressure Quality intermittent 07/25/2016 None chest pain/pressure Onset and Resolution ongoing 07/25/2016 None chest pain/pressure Onset of Symptom months ago 07/25/2016 since chest pain/pressure Pertinent Findings cough 07/25/2016 None [...] Exacerbating Factors diet 07/25/2016 None anxiety Quality intermit tent 07/25/2016 None anxiety Onset and Resolution ongoing 07/25/2016 None anxiety Onset of Symptom months ago 07/25/2016 None anxiety Alleviating Factors medication 07/25/2016 None anxiety Pertinent Findings nightmares 07/25/2016 None sinus congestion Onset and Resolution ongoing 07/25/2016 None gastroesophageal reflux Onset and Re solution ongoing 03/22/2016 None gastroesophageal reflux Onset of Symptom months ago 03/22/2016 None gastroesophageal reflux Alleviating Factor s position change 03/22/2016 None gastroesophageal reflux Alleviating Factor s medication 03/22/2016 None gastroesophageal reflux Exacerbating Factors eating 03/22/2016 None chest pain/pressure Radiating the right arm 03/22/2016 tingling sensation chest pain/pressure Radiating the left arm 03/22/2016 tingling sensation- more so on this side chest pain/pressure Quality intermittent 03/22/2016 None chest pain/pressure Quality pressure 03/22/2016 None chest pain/pressure Onset and Resolution ongoing 03/22/2016 None chest pain/pressure Onset of Symptom months ago 03/22/2016 since chest pain/pressure Pertinent Findings cough 03/22/2016 None [...] reflux Frequency of Episodes most meals 03/22/2016 No ne gastroesophageal reflux Onset and Re solution ongoing 01/12/2016 None gastroesophageal reflux Onset of Symptom _ months ago 01/12/2016 None gastroesophageal reflux Frequency of Episodes every meal 01/12/2016 No ne gastroesophageal reflux Alleviating Factor s position change 01/12/2016 None gastroesophageal reflux Alleviating Factor s medication 01/12/2016 None gastroesophageal reflux Exacerbating Factors eating 01/12/2016 None chest pain/pressure Radiating the right arm 01/12/2016 tingling sensation chest pain/pressure Radiating the left arm 01/12/2016 tingling sensation- more so on this side chest pain/pressure Quality intermittent 01/12/2016 None chest pain/pressure Quality pressure 01/12/2016 None chest pain/pressure Onset and Resolution ongoing 01/12/2016 None chest pain/pressure Onset of Symptom _ months ago 01/12/2016 since chest pain/pressure Pertinent Findings cough 01/12/2016 None chest pain/pressure Pertinent Findings Denies dyspnea 01/12/2016 None chest pain/pressure Pertinent Findings Denies palpitations 01/12/2016 None cough Quality intermitte nt 01/12/2016 None cough Onset and Resolution ongoing 01/12/2016 None cough Triggers meals 01/12/2016 None cough Pertinent Findings chest discomfort 01/12/2016 pressure cough Pertinent Findings Denies heartburn 01/12/2016 None gastroesophageal reflux Onset and Re solution ongoing 10/13/2015 None gastroesophageal reflux Onset of Symptom _ months ago 10/13/2015 None gastroesophageal reflux Frequency of Episodes every meal 10/13/2015 No ne gastroesophageal reflux Alleviating Factor s position change 10/13/2015 None gastroesophageal reflux Alleviating Factor s medication 10/13/2015 None gastroesophageal reflux Exacerbating Factors eating 10/13/2015 None chest pain/pressure Quality intermittent 10/13/2015 None chest pain/pressure Quality pressure 10/13/2015 None chest pain/pressure Radiating the left arm 10/13/2015 tingling sensation- more so on this side chest pain/pressure Radiating the right arm 10/13/2015 tingling sensation chest pain/pressure Onset and Resolution ongoing 10/13/2015 None chest pain/pressure Onset of Symptom _ months ago 10/13/2015 since chest pain/pressure Pertinent Findings Denies palpitations 10/13/2015 None chest pain/pressure Pertinent Findings cough 10/13/2015 None chest pain/pressure Pertinent Findings Denies dyspnea 10/13/2015 None cough Quality intermitte nt 10/13/2015 None cough Onset and Resolution ongoing 10/13/2015 None cough Pertinent Findings chest discomfort 10/13/2015 pressure cough Pertinent Findings Denies heartburn 10/13/2015 None cough Triggers meals 10/13/2015 None hyperlipidemia Onset and Resolution ongoing 09/13/2015 None hyperlipidemia Alleviating Factors medication 09/13/2015 None hyperlipidemia Significant Family History hyperlipidemia 09/13/2015 None hyperlipidemia Exacerbating Factors diet 09/13/2015 None gastroesophageal reflux Onset and Re solution ongoing 09/13/2015 None gastroesophageal reflux Onset of Symptom _ months ago 09/13/2015 None gastroesophageal reflux Frequency of Episodes every meal 09/13/2015 No ne gastroesophageal reflux Exacerbating Factors eating 09/13/2015 None gastroesophageal reflux Alleviating Factor s position change 09/13/2015 None gastroesophageal reflux Alleviating Factor s medication 09/13/2015 None hyperlipidemia Onset and Resolution ongoing 07/05/2015 None hyperlipidemia Triggers no known associated factors 07/05/2015 None hyperlipidemia Alleviating Factors medication 07/05/2015 None hyperlipidemia Exacerbating Factors medication 07/05/2015 None hyperlipidemia Significant Family History hyperlipidemia 07/05/2015 None Advance Directives No Advance Directive data Encounters Encounter Performer Loca tion Codes Date ([id number]) [id number] EST. P ATIENT, LEVEL IV Diagnosis: Essential (primary) hypertension[ICD10: I10] Diagnosis: Mixed hyperlipidemia[ICD10: E78.2] Diagnosis: Generalized anxiety disorder[ICD10: F41.1] Kathy Espinosa MD, [facility] CPT-4: 04202 05/14/2019 ([id number]) [id number] EST. P ATIENT, LEVEL IV Diagnosis: Essential (primary) hypertension[ICD10: I10] Diagnosis: Gastro-esophageal reflux disease without esophagitis[ICD10: K21.9] Diagnosis: Mixed hyperlipidemia[ICD10: E78.2] Diagnosis: Impaired fasting glucose[ICD10: R73.01] Kathy Espinosa MD, [facility] CPT-4: 29182 02/23/2019 ([id number]) 52129 EST. P ATIENT, LEVEL III Diagnosis: Cough[ICD10: R05] Diagnosis: Acute upper respiratory infection, unspecified[ICD10: J06.9] Amanda Espinosa MD, [facility] CPT-4: 75575 10/03/2018 ([id number]) 09237 EST. P ATIENT, LEVEL IV Diagnosis: Essential (primary) hypertension[ICD10: I10] Diagnosis: Mixed hyperlipidemia[ICD10: E78.2] Diagnosis: Other allergic rhinitis[ICD10: J30.89] Kathy Espinosa MD, [facility] CPT-4: 67276 08/25/2018 [id number] EST. PATIENT, LEVEL III Diagnosis: Other pruritus[ICD10: L29.8] Diagnosis: Allergic contact dermatitis due to plants, except food[ICD10: L23.7] Alba Espinosa MD, [facility] CPT-4: 48400 06/16/2018 ([id number]) 29487 EST. P ATIENT, LEVEL IV Diagnosis: Essential (primary) hypertension[ICD10: I10] Diagnosis: Allergic dermatitis of left upper eyelid[ICD10: H01.114] Diagnosis: Allergic rhinitis due to pollen[ICD10: J30.1] Kathy Espinosa MD, [facility] CPT-4: 49347 04/24/2018 ([id number]) [id number] EST. P ATIENT, LEVEL IV Diagnosis: Essential (primary) hypertension[ICD10: I10] Diagnosis: Mixed hyperlipidemia[ICD10: E78.2] Diagnosis: Actinic keratosis[ICD10: L57.0] Kathy Espinosa MD, [facility] CPT-4: 09226 11/04/2017 ([id number]) 03021 EST. P ATIENT, LEVEL IV Diagnosis: Essential (primary) hypertension[ICD10: I10] Diagnosis: Cervicalgia[ICD10: M54.2] Diagnosis: Myalgia[ICD10: M79.1] Kathy Espinosa MD, [facility] CPT-4: 92991 10/07/2017 ([id number]) 55895 EST. P ATIENT, LEVEL IV Diagnosis: Essential (primary) hypertension[ICD10: I10] Diagnosis: Major depressive disorder, recurrent, mild[ICD10: F33.0] Diagnosis: Generalized anxiety disorder[ICD10: F41.1] Kathy Espinosa MD, [facility] CPT-4: 01757 06/03/2017 ([id number]) 79350 EST. P ATIENT, LEVEL IV Diagnosis: Essential (primary) hypertension[ICD10: I10] Diagnosis: Mixed hyperlipidemia[ICD10: E78.2] Diagnosis: Low back pain[ICD10: M54.5] Kathy Espinosa MD, [facility] CPT-4: 68272 03/19/2017 ([id number]) 11378 EST. P ATIENT, LEVEL III Diagnosis: Pain in right lower leg[ICD10: M79.661] Diagnosis: Localized edema[ICD10: R60.0] Diagnosis: Contusion of right lower leg, initial encounter[ICD10: S80.11XA] Amanda Espinosa MD, [facility] CPT-4: 06382 01/21/2017 ([id number]) 72293 EST. P ATIENT, LEVEL IV Diagnosis: Mixed hyperlipidemia[ICD10: E78.2] Diagnosis: Major depressive disorder, recurrent, moderate[ICD10: F33.1] Kathy Espinosa MD, [facility] CPT-4: 90156 12/04/2016 ([id number]) 45017 EST. P ATIENT, LEVEL IV Diagnosis: Mixed hyperlipidemia[ICD10: E78.2] Diagnosis: Major depressive disorder, recurrent, mild[ICD10: F33.0] Diagnosis: Generalized anxiety disorder[ICD10: F41.1] Diagnosis: Essential (primary) hypertension[ICD10: I10] Diagnosis: Chronic obstructive pulmonary disease with (acute) exacerbation[ICD10: J44.1] Kathy Espinosa MD, [facility] CPT-4: 20594 11/14/2016 17110 EST. PATIENT, LEVEL III Diagnosis: Acute laryngopharyngitis[ICD10: J06.0] Diagnosis: Other allergic rhinitis[ICD10: J30.89] Alba Espinosa MD, [facility] CPT-4: 38531 09/17/2016 28041 EST. PATIENT, LEVEL III Diagnosis: Contusion of right lower leg, initial encounter[ICD10: S80.11XA] Alba Espinosa MD, [facility] CPT-4: 51631 08/03/2016 ([id number]) 92132 EST. P ATIENT, LEVEL IV Diagnosis: Essential (primary) hypertension[ICD10: I10] Diagnosis: Mixed hyperlipidemia[ICD10: E78.2] Diagnosis: Acute recurrent maxillary sinusitis[ICD10: J01.01] Diagnosis: Chronic obstructive pulmonary disease with (acute) exacerbation[ICD10: J44.1] Kathy Espinosa MD, [facility] CPT-4: 42568 07/25/2016 ([id number]) 71711 EST. P ATIENT, LEVEL IV Diagnosis: Essential (primary) hypertension[ICD10: I10] Diagnosis: Gastro-esophageal reflux disease without esophagitis[ICD10: K21.9] Diagnosis: Generalized anxiety disorder[ICD10: F41.1] Diagnosis: Major depressive disorder, recurrent, mild[ICD10: F33.0] Kathy Espinosa MD, [facility] CPT-4: 22908 03/22/2016 ([id number]) 72342 EST. P ATIENT, LEVEL IV Diagnosis: Essential (primary) hypertension[ICD10: I10] Diagnosis: Coronary angioplasty status[ICD10: Z98.61] Diagnosis: Hyperlipidemia, unspecified[ICD10: E78.5] Diagnosis: Major depressive disorder, recurrent, moderate[ICD10: F33.1] Kathy Espinosa MD, [facility] CPT-4: 45960 01/12/2016 ([id number]) 16327 EST. P ATIENT, LEVEL IV Diagnosis: Essential (primary) hypertension[ICD10: I10] Diagnosis: Gastro-esophageal reflux disease without esophagitis[ICD10: K21.9] Kathy Espinosa MD, [facility] CPT-4: 67029 10/13/2015 ([id number]) 26294 EST. P ATIENT, LEVEL IV Diagnosis: Gastro-esophageal reflux disease without esophagitis[ICD10: K21.9] Diagnosis: Essential (primary) hypertension[ICD10: I10] Diagnosis: Coronary angioplasty status[ICD10: Z98.61] Kathy Espinosa MD, C CPT-4: 27965 09/13/2015 ([id number]) OFFICE VISI T, NEW - LEVEL 4 Diagnosis: Hyperlipidemia, unspecified[ICD10: E78.5] Diagnosis: Personal history of other diseases of the circulatory system[ICD10: Z86.79] Diagnosis: Unspecified osteoarthritis, unspecified site[ICD10: M19.90] Diagnosis: Polyneuropathy, unspecified[ICD10: G62.9] Kathy Espinoas MD, C CPT-4: 30224 07/05/2015 Plan of Care Planned Activity Notes C odes Status Date Visit Plan: Hypertension - well con trolled - continue with current medications, continue with [...] situational exposure. No change in current medications. 05/14/2019 Appointment: Kathy Espinosa WPtel: [phone] [facility] (15 min) Moderate 05/14/2019 Patient Education: Patient Medication Summary Completed 05/14/2019 Patient Education: Cholesterol Management Completed 05/14/2019 Appointment: Kathy Espinosa WPtel: [phone] [facility] (15 min) Moderate 04/27/2019 Visit Plan: Hypertension - well con trolled - continue with current medications, continue with [...] to assure normal liver response to medications. Esophageal Reflux - the patient has been counseled against excessive intake of caffeine, spicy foods, peppermint, and cinnamon - all of which can exacerbate esophageal reflux. The patient is to take medications as prescribed and call the office if the symptoms are not improving. Dyspnea on exertion - due to obesity and exercise intolerance due to lack of activity - start walking or riding your bike at least 1 mile a day - break it up into two 1/2 mile walks/rides. 02/23/2019 Appointment: Kathy Espinosa WPtel: [phone] [facility]66[facility] (15 min) Moderate 02/23/2019 Patient Education: Patient Medication Summary Completed 02/23/2019 Patient Education: Cholesterol Management Completed 02/23/2019 Appointment: Amanda Romero WPtel: [facility]1 [phone] (15 min) Moderate 02/06/2019 Visit Plan: URI - Pt advised to inc rease fluids, vitamin C. Discussed natural and expected course of this diagnosis and need to alert me if symptoms do not follow expected course, or if any worse. RX sent to patient's pharmacy. 10/03/2018 Appointment: Amanda Romero WPtel: [facility]7 [phone] (30 min) Complex 10/03/2018 Patient Education: Patient Medication Summary Completed 10/03/2018 Visit Plan: Hypertension - well con trolled - continue with current medications, continue with no added salt diet. Pt has been encouraged to exercise daily. The pt has been advised to call the office if there are any acute concerns about change in blood pressure readings at home. cut the metoprolol xl (toprol xl) pill in half and take half of a pill daily. Hyperlipidemia - pt has been counseled about [...] to assure normal liver response to medications. Seasonal allergies - flonase Nasal spray- use twice daily, one spray per nostril twice daily, after 30 minutes, rinse out nose with saline spray.. Use opposite hand per nostril to spray in the nasal steroid allergy spray. restart the mucinex dm for the drainage and cough Kenalog injection given today in clinic 08/25/2018 Appointment: Kathy Espinosa WPtel: [phone] [place] [phone] (15 min) Moderate 08/25/2018 Patient Education: Patient Medication Summary Completed 08/25/2018 Patient Education: Cholesterol Management Completed 08/25/2018 Patient Education: Patient Medication Summary Completed 08/19/2018 Visit Plan: Rash vs Poison Ashley - pt is to use topical treatments as directed. Pt is cleanse clothing in hot water with soap, and call if symptoms do not improve or if they worsen. 06/16/2018 Appointment: Alba Fajardo WPtel: [facility]5 [facility] (15 min) Moderate 06/16/2018 Patient Education: Patient Medication Summary Completed 06/16/2018 Patient Education: Poison Ashley Completed 06/16/2018 Appointment: Amanda Romero WPtel: [phone] [phone] [place] (15 min) Moderate 05/23/2018 Appointment: Kathy Espinosa WPtel: [facility] [place] (15 min) Moderate 05/15/2018 Visit Plan: Hypertension - well con trolled - continue with current medications, continue with no added salt diet. Pt has been encouraged to exercise daily. The pt has been advised to call the office if there are any acute concerns about change in blood pressure readings at home. Eye allergy - milagros 180mg daily x 2 weeks zatador eye drops - use twice daily. if no improvement in a week - call the office if the swelling or itching acutely worsens - call the office 04/24/2018 Appointment: Kathy Espinosa WPtel: [facility] [place] (15 min) Moderate 04/24/2018 Patient Education: Patient Medication Summary Completed 04/24/2018 Appointment: Kathy Espinosa WPtel: [phone] [place] (15 min) Moderate 02/25/2018 Appointment: Kathy Espinosa WPtel: [facility]5 [facility] [place] (15 min) Moderate 02/20/2018 Appointment: Kathy Espinosa [facility]Ptel: [phone] (15 min) Moderate 02/13/2018 Patient Education: Patient Medication Summary Completed 11/20/2017 Visit Plan: Medicare Exam - today w e discussed the patients past history, immunizations, preventative [...] her DOPA paperwork for health care surrogate. 11/19/2017 Visit Plan: Medicare Exam - today w e discussed the patients past history, immunizations, preventative [...] her DOPA paperwork for health care surrogate. 11/19/2017 Appointment: [phone] [facility] - Annual Wellness Visit 11/19/2017 Patient Education: Patient Medication Summary Completed 11/19/2017 Visit Plan: Hypertension - well con trolled - continue with current medications, continue with [...] to assure normal liver response to medications. Actinic keratosis - cryotherapy bilateral hands, forehead/face - one lesion each hand and on spiritism x 3 lesions and 2 lesions right spiritism 11/04/2017 Appointment: Kathy Espinosa WPtel: [phone] [facility] (15 min) Moderate 11/04/2017 Patient Education: Patient Medication Summary Completed 11/04/2017 Visit Plan: Hypertension - well con trolled - continue with current medications, continue with [...] start on crestor after two weeks. 10/07/2017 Appointment: Kathy Espinosa WPtel: [phone] [facility] (15 min) Moderate 10/07/2017 Patient Education: Patient Medication Summary Completed 10/07/2017 Visit Plan: Hypertension - well con trolled - continue with current medications, continue with [...] flu shots 06/03/2017 Appointment: Kathy Espinosa WPtel: [phone] [facility] (15 min) Moderate 06/03/2017 Patient Education: Patient Medication Summary Completed 06/03/2017 Patient Education: Obesity Completed 06/03/2017 Appointment: Kathy Espinosa WPtel: [facility]5 [facility] (15 min) Moderate 05/22/2017 Visit Plan: Hypertension - well michelle akins - continue with current medications, continue with [...] of back 03/19/2017 Appointment: Kathy Espinosa WPtel: [facility]3 [facility] (15 min) Moderate 03/19/2017 Patient Education: Patient Medication Summary Completed 03/19/2017 Patient Education: Obesity Completed 03/19/2017 Visit Plan: Contusion-right lower l eg-improving but pain and swelling in right lower extremity has worsened-will obtain venous doppler to r/o DVT-continues ice, elevation, anti inflammatories as directed. Instructed patient and his we will call them with the results of the venous doppler. 01/21/2017 Appointment: Amanda Romero [facility]Ptel: [phone] [place] (15 min) Moderate 01/21/2017 Patient Education: [...] No change in current medications. 12/04/2016 Appointment: Kathy Espinosa WPtel: [phone] (15 min) Moderate 12/04/2016 Patient Education: Patient Medication Summary Completed 12/04/2016 Visit Plan: Medicare Exam - today w e discussed the patients past history, immunizations, preventative [...] care surrogate. 11/16/2016 Appointment: Alba Fajardo [facility]Ptel: [phone] [facility] [facility] - Annual Wellness Visit 11/16/2016 Patient Education: Patient Medication Summary Completed 11/16/2016 Visit Plan: Anxiety - the patient h as uncontrolled anxiety and will benefit from an SSRI on a daily basis to attempt control of the symptoms of anxiety (tachycardia, overwhelming sensations, stress, insomnia, et c). I also believe that the patient will [...] pressure readings as an outpatient and either fax, call, or email the readings to the office next week for practitioner to review. The pt is to call for acute concerns. 11/14/2016 Appointment: Kathy Espinosa WPtel: [phone] [facility] [place] (15 min) Moderate 11/14/2016 Patient Education: Patient Medication Summary Completed 11/14/2016 Patient Education: Obesity Completed 11/14/2016 Appointment: Kathy Espinosa WPtel: [phone] [facility] [place] (15 min) Moderate 10/24/2016 Visit Plan: URI - Pt advised to inc rease fluids, vitamin C. Discussed natural and expected [...] Completed 09/17/2016 Visit Plan: Hematoma, right lower l eg, anterior - Pt is to monitor symptoms if they change or worsen pt is to notify clinic. Notify clinic with any redness, streaking, warmth, edema, shortness of breath or pain. 08/03/2016 Appointment: Amanda Romero WPtel: [phone] [phone] [place] (15 min) Moderate 08/03/2016 Patient Education: Patient Medication Summary Completed 08/03/2016 Patient Education: Obesity Completed 08/03/2016 Visit Plan: Hypertension - well con trolled - continue with current medications, continue with [...] show improvement. 07/25/2016 Appointment: Kathy Espinosa WPtel: [address] [place], [place] [address] (15 min) Moderate 07/25/2016 Patient Education: Patient Medication Summary Completed 07/25/2016 Patient Education: Obesity Completed 07/25/2016 Visit Plan: Hypertension - well con trolled - continue with current medications, continue with [...] Completed 03/22/2016 Visit Plan: Hypertension - well con trolled - continue with current medications, continue with [...] current medications. 01/12/2016 Appointment: Kathy Espinosa WPtel: [facility] [address] (15 min) Moderate 01/12/2016 Patient Education: Patient Medication Summary Completed 01/12/2016 Patient Education: Obesity Completed 01/12/2016 Patient Education: Hypertension Completed 01/12/2016 Appointment: Kathy Espinosa WPtel: [facility]3 [facility]6[address] (15 min) Moderate 12/01/2015 Visit Plan: Hypertension - well con emilied - continue with current medications, continue with [...] not improving. 10/13/2015 Appointment: Kathy Espinosa WPtel: [facility]0 [facility]6[address] (15 min) Moderate 10/13/2015 Patient Education: Patient Medication Summary Completed 10/13/2015 Patient Education: Hypertension Completed 10/13/2015 Visit Plan: Hypertension - well con trolled - continue with current medications, continue with [...] TWICE DAILY 09/13/2015 Appointment: Kathy Espinosa WPtel: [facility]7 [facility] (15 min) Moderate 09/13/2015 Patient Education: Patient Medication Summary Completed 09/13/2015 Patient Education: Hypertension Completed 09/13/2015 Appointment: Kathy Espinosa WPtel: [facility]3 [facility] (15 min) Moderate 08/09/2015 Visit Plan: Hyperlipidemia [...] and lipitor. 07/05/2015 Appointment: Kathy Espinosa WPtel: [facility] New Patient 07/05/2015 Patient Education: Patient Medication Summary Completed 07/05/2015 Referral: Heber Almanza Referral Appointment Requested Referral: Heber Almanza Pt's informed that referral paperwork sent. If they do not hear anything back by next Mon/Tues to let me know. Completed Instructions Comment INCREASE THE PANTOPR AZOLE TO 40MG TWICE DAILY . Hypertension - well controlled - alexander nue with current medications, continue with no added [...] INCREASE THE PANTOPRAZOLE TO 40MG TWICE DAILY cut the metoprolol x l (toprol xl) pill in half and take half of a pill daily. flonase Nasal spray- use twice daily, one spray per nostril twice daily, after 30 minutes, rinse out nose with saline spray.. Use opposite hand per nostril to spray in the nasal steroid allergy spray. restart the mucinex dm for the drainage and cough . Hypertension - well controlled - alexander nue with current medications, continue with no added salt diet. Pt has been encouraged to exercise daily. The pt has been advised to call the office if there are any acute concerns about change in blood pressure readings at home. cut the metoprolol xl (toprol xl) pill in half and take half of a pill daily. Hyperlipidemia - pt has been counseled about [...] to assure normal liver response to medications. Seasonal allergies - flonase Nasal spray- use twice daily, one spray per nostril twice daily, after 30 minutes, rinse out nose with saline spray.. Use opposite hand per nostril to spray in the nasal steroid allergy spray. restart the mucinex dm for the drainage and cough Kenalog injection given today in clinic - books about weigh t loss - "the wild diet" - author - makayla marks - and "grain brain" - author - Dr. Niko Márquez . Hypertension - well controlled - alexander nue with current medications, continue with no added [...] - check xray of back probiotics - Culture lle, [employer] mitch, or generic . URI - Pt advised to increase fluids, v itamin C. Discussed natural and expected course of [...] spray in the nasal steroid allergy spray. steroid shot today steroid pills that you can start tomorrow if you need it - if it is better then you dont have to start them betamethasone cream as needed for itching - do not use on face. . Rash vs Poison Ashley - pt is to use topi ofelia treatments as directed. Pt is cleanse clothing in hot water with soap, and call if symptoms do not improve or if they worsen. restart riding your bike once the temperature is consistently below 78F. Hypertension - well controlled - continue with [...] situational exposure. No change in current medications. we will send a refer ral to [facility] for physical therapy for your neck . Hypertension - well controlled - alexander nue with current medications, continue with no added salt diet. Pt has been encouraged to exercise daily. The pt has been advised to call the office if there are any acute concerns about change in blood pressure readings at home. Chronic Anxiety/Depression - - recommended pt to restart on Lexapro 20mg at bedtime. Pt does not take the flu shots decrease the pantopr azole to one time daily at night take gas-ex 30 minutes before meals and bedtime. . Hypertension - well controlled - alexander nue with current medications, continue with no added [...] if the symptoms are not improving. start walking or rid ing your bike at least 1 mile a day - break it up into two 1/2 mile walks/rides. . Hypertension - well controlled - alexander nue with current medications, continue with no added [...] to assure normal liver response to medications. Esophageal Reflux - the patient has been counseled against excessive intake of caffeine, spicy foods, peppermint, and cinnamon - all of which can exacerbate esophageal reflux. The patient is to take medications as prescribed and call the office if the symptoms are not improving. Dyspnea on exertion - due to obesity and exercise intolerance due to lack of activity - start walking or riding your bike at least 1 mile a day - break it up into two 1/2 mile walks/rides. start on buspirone - 5mg one pill [...] pressure readings as an outpatient and either fax, call, or email the readings to the [...] situational exposure. No change in current medications. kenalog continue flonase twice daily . URI - Pt advised to increase fluids, v itamin C. Discussed natural and expected course of this diagnosis and need to alert me if symptoms do not follow expected course, or if any worse. RX sent to patient's pharmacy. . Medicare Exam - to day we discussed the patients past history, immunizations, [...] for health care surrogate. . Hypertension - wel l controlled - continue with current medications, continue [...] not show improvement. we will check a danielle min b12 level to see if there is any evidence of vitamin b deficiency that is causing nerve pain. we will also check a chest xray . Hyperlipidemia - pt has been counsele d about appropriate diet, exercise, and need for [...] right lower extremity . Contusion-right lower leg-improving bu t pain and swelling in right lower extremity [...] - . Hypertension - well controlled - alexander nue with current medications, continue with no added [...] start on crestor after two weeks. . Medicare Exam - to day we discussed the patients past history, immunizations, [...] DOPA paperwork for health care surrogate. . Medicare Exam - to day we discussed the patients past history, immunizations, [...] for health care surrogate. . Hypertension - wel l controlled - continue with current medications, continue [...] change in current medications. . Hypertension - wel l controlled - continue with current medications, continue [...] change in current medications. . Hematoma, right lo wer leg, anterior - Pt is to monitor symptoms if they change or worsen pt is to notify clinic. Notify clinic with any redness, streaking, warmth, edema, shortness of breath or pain. milagros 180mg daily x 2 weeks zatador eye drops - use twice daily. if no improvement in a week - call the office if the swelling or itching acutely worsens - call the office . Hypertension - well controlled - alexander nue with current medications, continue with no added salt diet. Pt has been encouraged to exercise daily. The pt has been advised to call the office if there are any acute concerns about change in blood pressure readings at home. Eye allergy - milagros 180mg daily x 2 weeks zatador eye drops - use twice daily. if no improvement in a week - call the office if the swelling or itching acutely worsens - call the office . Hypertension - wel l controlled - continue with current medications, continue [...] to assure normal liver response to medications. Actinic keratosis - cryotherapy bilateral hands, forehead/face - one lesion each hand and on spiritism x 3 lesions and 2 lesions right spiritism
--- OUTSIDE RECORDS SUMMARY | 2020-04-12 22:08 | XMS REPORT | CCD ---
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 Name Role Phone PP Unavailable CCM Unavailable Summary Purpose Interface Exchange Insurance Providers Payer name Policy type / Coverage type Covered democrat ID Effective Begin Date Effective End Date WPS Medicare Part B Medicare Part B [id number] Unknown Cigna Medicare Part B 36 [id number] Unknown Family history Grandfather Diagnosis Age At Onset lung cancer Unknown Runs in the family Diagnosis Age At Onset Cancer Unknown Grandfather Diagnosis Age At Onset Cancer Unknown Social History Social History Element Codes Description Effective Dates Marital status Unknown M arried Nitza 07/05/2015 Number of children Unknown 3 07/05/2015 Employment Unknown Retir ed 07/05/[address]: 6603028 Quit over 10 years ago 07/05/[address]: 272539 Currently drinks alcohol beer 07/05/2015 Allergies, Adverse [...] Date Stop Date Sta tus Fill Instructions potassium chloride E R 10 mEq tablet,extended release RxNorm: 051142 1 TABLET(S) PO DAILY NEEDED 04/30/2019 06/28/2019 Active furosemide 20 mg tablet RxNorm: 073696 1 TABLET(S) PO DAILY NEEDED 04/30/2019 06/28/2019 Ac tive furosemide 20 mg tablet RxNorm: 780529 1 TABLET(S) PO DAILY NEEDED 03/19/2019 04/27/2019 In active potassium chloride E R 10 mEq tablet,extended release RxNorm: 786688 1 TABLET(S) PO DAILY NEEDED 03/19/2019 04/27/2019 Inactive escitalopram 20 mg t ablet RxNorm: 133881 TABLET(S) TAKE ONE & ONE-HALF TABLETS BY MOUTH IN THE EVENING 03/16/2019 No Stop Date Active furosemide 20 mg tablet RxNorm: 829340 1 TABLET(S) PO DAILY NEEDED 02/27/2019 03/18/2019 In active Patient requests 90 days supply potassium chloride E R 10 mEq tablet,extended release RxNorm: 569011 1 TABLET(S) PO DAILY NEEDED 02/27/2019 06/26/2019 Active Patient requests 90 days s upply potassium chloride E R 10 mEq tablet,extended release RxNorm: 698489 1 Tablet(s) PO daily as needed 02/27/2019 02/26/2019 Inactive furosemide 20 mg tablet RxNorm: 644500 1 Tablet(s) PO daily as needed 02/27/2019 02/26/2019 In active potassium chloride E R 10 mEq tablet,extended release RxNorm: 725312 1 Tablet(s) PO daily as needed 02/27/2019 02/26/2019 Inactive naproxen 500 mg tablet RxNorm: 586004 1 TABLET(S) BID NEEDED FOR PAIN 01/26/2019 07/24/2019 Ac tive Crestor 10 mg tablet RxNorm: 683407 1 Tablet(s) PO every other day 11/03/2018 01/26/2020 Ac tive Zithromax Z-Ralph 250 mg tablet RxNorm: 185764 1 Tablet(s) PO UD 10/13/2018 10/12/2018 Inactive Zithromax Z-Ralph 250 mg tablet RxNorm: 897283 1 Tablet(s) PO UD 10/13/2018 10/17/2018 Inactive escitalopram 20 mg t ablet RxNorm: 291859 Tablet(s) TAKE ONE & ONE-HALF TABLETS BY MOUTH IN THE EVENING 10/07/2018 03/15/2019 Inactive Keflex 500 mg capsule RxNorm: 266262 1 Capsule(s) PO TID 10/03/2018 10/09/2018 Inactive Kenalog 40 mg/mL jenni pension for injection RxNorm: 1088400 Milliliter(s) Inj 10/03/2018 10/03/2018 In active pantoprazole 40 mg t ablet,delayed release RxNorm: 736040 1 Tablet(s) BID 09/24/2018 12/17/2019 Ac tive naproxen 500 mg tablet RxNorm: 211555 1 Tablet(s) BID as needed for pain 09/24/2018 01/25/2019 In active Kenalog 40 mg/mL jenni pension for injection RxNorm: 4696322 1 Milliliter(s) Inj 08/25/2018 08/25/2018 In active pantoprazole 40 mg t ablet,delayed release RxNorm: 159420 TAKE 1 TABLET BY MOUT H TWICE DAILY 06/24/2018 09/23/2018 Inactive betamethasone diprop ionate 0.05 % topical cream RxNorm: 926281 1 Application TOP BID as needed 06/16/2018 No Stop Date Active prednisone 20 mg tablet RxNorm: 292729 2 Tablet(s) PO daily 06/16/2018 06/20/2018 Inactive Kenalog 40 mg/mL jenni pension for injection RxNorm: 4437923 1 Milliliter(s) Inj 06/16/2018 06/16/2018 In active naproxen 500 mg tablet RxNorm: 052841 TAKE 1 TABLET BY MOUTH TWICE DAILY NE EDED FOR PAIN 05/13/2018 09/23/2018 Inactive naproxen 500 mg tablet RxNorm: 552815 TAKE ONE TABLET BY MOUTH TWICE DAILY NEEDED FOR PAIN 01/07/2018 05/12/2018 Inactive escitalopram 20 mg t ablet RxNorm: 549524 TAKE ONE & ONE-HALF T ABLETS BY MOUTH IN THE EVENING 12/16/2017 10/06/2018 Inactive pantoprazole 40 mg t ablet,delayed release RxNorm: 415919 1 Tablet(s) PO BID 11/21/2017 03/20/2018 In active Crestor 10 mg tablet RxNorm: 399392 1 Tablet(s) PO every other day 10/07/2017 11/02/2018 In active naproxen 500 mg tablet RxNorm: 491978 TAKE ONE TABLET BY MOUTH TWICE DAILY NEEDED FOR PAIN 06/27/2017 12/23/2017 Inactive escitalopram 20 mg t ablet RxNorm: 117244 1 Tablet(s) PO QPM 06/03/2017 05/28/2018 Inactive pantoprazole 40 mg t ablet,delayed release RxNorm: 347966 1 Tablet(s) PO BID 03/19/2017 05/07/2017 In active naproxen 500 mg tablet RxNorm: 268988 TAKE ONE TABLET BY MOUTH TWICE DAILY NEEDED FOR PAIN 02/11/2017 06/10/2017 Inactive naproxen 500 mg tablet RxNorm: 794730 TAKE ONE TABLET BY MOUTH TWICE DAILY NEEDED FOR PAIN 12/14/2016 02/10/2017 Inactive escitalopram 20 mg t ablet RxNorm: 567952 1.5 Tablet(s) PO QPM 12/04/2016 06/02/2017 Inactive buspirone 5 mg tablet RxNorm: 401151 1 Tablet(s) PO BID 11/14/2016 12/03/2016 Inactive amoxicillin 500 mg c apsule RxNorm: 026081 1 Capsule(s) PO TID 09/17/2016 09/26/2016 Inactive prednisone 20 mg tablet RxNorm: 562409 2 Tablet(s) PO daily 09/17/2016 09/21/2016 Inactive escitalopram 20 mg t ablet RxNorm: 465148 1 Tablet(s) PO QPM 08/28/2016 12/03/2016 Inactive naproxen 500 mg tablet RxNorm: 029187 TAKE ONE TABLET BY MOUTH TWICE DAILY NEEDED FOR PAIN 08/01/2016 11/28/2016 Inactive sulfamethoxazole 800 mg-trimethoprim 160 mg tablet RxNorm: 155990 1 Tablet(s) PO BID 07/25/2016 07/31/2016 Inactive Kenalog 40 mg/mL jenni pension for injection RxNorm: 3616007 Milliliter(s) Inj 07/25/2016 07/25/2016 In active Symbicort 80 mcg-4.5 mcg/actuation HFA aerosol inhaler RxNorm: 0592413 2 INH QHS 07/25/2016 09/11/2016 In active escitalopram 20 mg t ablet RxNorm: 556794 1 Tablet(s) PO QPM 03/22/2016 08/27/2016 Inactive alprazolam 0.5 mg di sintegrating tablet RxNorm: 775490 1 Tablet(s) PO TID as needed anxiety 03/22/2016 11/13/2016 Inactive atorvastatin 20 mg t ablet RxNorm: 478143 1 Tablet(s) PO daily 01/12/2016 10/06/2017 Inactive Lexapro 10 mg tablet RxNorm: 122688 1 Tablet(s) PO QPM 01/12/2016 03/21/2016 Inactive pantoprazole 40 mg t ablet,delayed release RxNorm: 537777 1 Tablet(s) PO daily 10/13/2015 11/11/2015 In active pantoprazole 40 mg t ablet,delayed release RxNorm: 467910 1 Tablet(s) PO BID 09/13/2015 10/12/2015 In active naproxen 500 mg tablet RxNorm: 282764 Tablet(s) PO BID as needed for pain 07/05/2015 07/31/2016 In active folic acid 400 mcg t ablet RxNorm: 864111 1 Tablet(s) PO daily No Start Date Active Vitamin B12 500 mcg RxNorm: 2000 Microgram(s) PO daily No Start Date Active Toprol XL 50 mg tabl et,extended release RxNorm: 568195 1 Tablet(s) PO daily No Start Date Active Tudorza Pressair 400 mcg/actuation breath activated RxNorm: 5682198 1 INH QAM No Start Date Active aspirin 81 mg capsul e,delayed release RxNorm: 178095 1 Capsule(s) PO daily No Start Date Active Incruse Ellipta 62.5 mcg/actuation powder for inhalation RxNorm: 7532519 1 INH daily No Start Date Active clopidogrel 75 mg ta blet RxNorm: 704667 1 Tablet(s) PO daily No Start Date Active Symbicort 80 mcg-4.5 mcg/actuation HFA aerosol inhaler RxNorm: 3874691 2 INH QHS No Start Date 07/24/2016 Inactive pantoprazole 40 mg t ablet,delayed release RxNorm: 346937 1 Tablet(s) PO daily No Start Date 09/12/2015 Inactive atorvastatin 40 mg t ablet RxNorm: 047354 1 Tablet(s) PO daily No Start Date 01/11/2016 Inactive furosemide 20 mg tablet RxNorm: 197626 1 Tablet(s) PO daily No Start Date 09/11/2016 Inactive naproxen 500 mg tablet RxNorm: 536319 Tablet(s) PO TID No Start Date 07/04/2015 Inactive Medication Administered Medication Codes Instruc tions Start Date Status Kenalog 40 mg/mL suspension for injection RxNorm: 2255059 Milliliter 10/03/2018 No longer Active Kenalog 40 mg/mL suspension for injection RxNorm: 4544903 1Milliliter 08/25/2018 N o longer Active Kenalog 40 mg/mL suspension for injection RxNorm: 7831271 1Milliliter 06/16/2018 N o longer Active Kenalog 40 mg/mL suspension for injection RxNorm: 5968899 Milliliter 07/25/2016 No longer Active Immunizations Vaccine [...] 26.9 % 02/23/2019 Cbc With Differential Ord2 [place]% 6.9 % 02/23/2019 Cbc With Differential Ord2 [...] 1.32 K/ul 02/23/2019 Cbc With Differential Ord2 [place] ABS# 0.3 K/ul 02/23/2019 Cbc With Differential Ord2 Eos ABS# 0.0 K/ul 02/23/2019 Cbc With Differential Ord2 Baso ABS# 0.0 K/ul 02/23/2019 %Hba1C Vbb834 % HbA1c 19059-2 6.1 % 02/23/2019 %Hba1C Ruh496 Gluc Ave 128 mg/dL 02/23/2019 Lipid Ord30 CHOL 129 mg/dL 02/23/2019 Lipid Ord30 HDL 36.0 mg/dl 02/23/2019 Lipid Ord30 TRIG 133 mg/dL 02/23/2019 Lipid Ord30 LDL 66 mg/dL 02/23/2019 Lipid Ord30 C/HDL 3.6 Ratio 02/23/2019 Comp Metabolic Vta954 NA 140 mEq/L 02/23/2019 Comp Metabolic Vja745 K 4.3 mEq/L 02/23/2019 Comp Metabolic Ppo943 CL 104 mEq/L 02/23/2019 Comp Metabolic Hfq711 CO2 28.0 mEq/L 02/23/2019 Comp Metabolic Szx990 AN ION GAP 12 02/23/2019 Comp Metabolic Krl567 GL UCOSE 115 mg/dL 02/23/2019 Comp Metabolic Nvu313 Cr eat 1.2 mg/dL 02/23/2019 Comp Metabolic Whj262 eG FR 62 ml/min/1.73m2 02/23 Comp Metabolic Lcg469 BUN 17 mg/dL 02/23/2019 Comp Metabolic Xxt187 B/ C Ratio 14.0 Ratio 02/23/2019 Comp Metabolic Liv998 CA LCIUM 9.2 mg/dL 02/23/2019 Comp Metabolic Ufb367 AL K PHOS 80 U/L 02/23/2019 Comp Metabolic Xio957 T(SGOT) 16 U/L 02/23/2019 Comp Metabolic Kyg087 AL T(SGPT) 15 U/L 02/23/2019 Comp Metabolic Daj106 BI LI T 1.0 mg/dL 02/23/2019 Comp Metabolic Rtc971 AL BUMIN 4.1 g/dL 02/23/2019 Comp Metabolic Ehl647 TP RO 6.5 g/dL 02/23/2019 Comp Metabolic Wie875 GL OB 2.4 g/dL 02/23/2019 Comp Metabolic Vou408 A/ G Ratio 1.7 Ratio 02/23/2019 Comp Metabolic Ffm272 Os mo 282 mOsmo 02/23/2019 Total Psa [...] 30.1 pg 08/20/2018 Cbc With Differential Ord2 [place]% 8.0 % 08/20/2018 Cbc With Differential Ord2 [...] 1.41 K/ul 08/20/2018 Cbc With Differential Ord2 [place] ABS# 0.4 K/ul 08/20/2018 Cbc With Differential Ord2 Eos ABS# 0.1 K/ul 08/20/2018 Cbc With Differential Ord2 Baso ABS# 0.0 K/ul 08/20/2018 Tsh Ord6 TSH (3rd IS) 2.07 uIU/mL 08/20/2018 %Hba1C Wbj452 % HbA1c 09161-4 6.0 % 08/20/2018 %Hba1C Fzt323 Gluc Ave 126 mg/dL 08/20/2018 Comp Metabolic Kix598 NA 142 mEq/L 08/20/2018 Comp Metabolic Jiq039 K 4.2 mEq/L 08/20/2018 Comp Metabolic Hfj555 CL 105 mEq/L 08/20/2018 Comp Metabolic Srr271 CO2 30.0 mEq/L 08/20/2018 Comp Metabolic Nve508 AN ION GAP 11 08/20/2018 Comp Metabolic Yab450 GL UCOSE 132 mg/dL 08/20/2018 Comp Metabolic Rxr725 Cr eat 1.3 mg/dL 08/20/2018 Comp Metabolic Apw454 eG FR 58 ml/min/1.73m2 08/20 Comp Metabolic Gfp005 BUN 19 mg/dL 08/20/2018 Comp Metabolic Trs476 B/ C Ratio 14.8 Ratio 08/20/2018 Comp Metabolic Hpc606 CA LCIUM 9.2 mg/dL 08/20/2018 Comp Metabolic Vfa008 AL K PHOS 72 U/L 08/20/2018 Comp Metabolic Juq561 T(SGOT) 21 U/L 08/20/2018 Comp Metabolic Rxz234 AL T(SGPT) 20 U/L 08/20/2018 Comp Metabolic Ypo061 BI LI T 1.1 mg/dL 08/20/2018 Comp Metabolic Tmt944 AL BUMIN 4.3 g/dL 08/20/2018 Comp Metabolic Pql296 TP RO 6.6 g/dL 08/20/2018 Comp Metabolic Uja624 GL OB 2.3 g/dL 08/20/2018 Comp Metabolic Nkn022 A/ G Ratio 1.9 Ratio 08/20/2018 Comp Metabolic Ukb848 Os mo 287 mOsmo 08/20/2018 %Hba1C Uzr198 % HbA1c 02366-7 5.9 % 11/20/2017 %Hba1C Lbq800 Gluc Ave 123 mg/dL 11/20/2017 B12 Tro000 B12 1130.00 pg/ml 11/19/2017 Total Psa Ord10 [...] 29.2 pg 11/19/2017 Cbc With Differential Ord2 [place]% 8.6 % 11/19/2017 Cbc With Differential Ord2 [...] 1.37 K/ul 11/19/2017 Cbc With Differential Ord2 [place] ABS# 0.4 K/ul 11/19/2017 Cbc With Differential Ord2 Eos ABS# 0.0 K/ul 11/19/2017 Cbc With Differential Ord2 Baso ABS# 0.0 K/ul 11/19/2017 Comp Metabolic Ccn923 NA 142 mEq/L 11/19/2017 Comp Metabolic Rha256 K 4.3 mEq/L 11/19/2017 Comp Metabolic Ngp981 CL 104 mEq/L 11/19/2017 Comp Metabolic Cic791 CO2 29.0 mEq/L 11/19/2017 Comp Metabolic Jrw027 AN ION GAP 13 11/19/2017 Comp Metabolic Szv246 GL UCOSE 132 mg/dL 11/19/2017 Comp Metabolic Pwi302 Cr eat 1.2 mg/dL 11/19/2017 Comp Metabolic Daz273 eG FR 63 ml/min/1.73m2 11/19 Comp Metabolic Ncy329 BUN 20 mg/dL 11/19/2017 Comp Metabolic Sjt230 B/ C Ratio 16.8 Ratio 11/19/2017 Comp Metabolic Vrx167 CA LCIUM 9.3 mg/dL 11/19/2017 Comp Metabolic Lze539 AL K PHOS 74 U/L 11/19/2017 Comp Metabolic Itn722 T(SGOT) 15 U/L 11/19/2017 Comp Metabolic Civ955 AL T(SGPT) 15 U/L 11/19/2017 Comp Metabolic Ert214 BI LI T 0.9 mg/dL 11/19/2017 Comp Metabolic Vyw814 AL BUMIN 4.3 g/dL 11/19/2017 Comp Metabolic Pyv421 TP RO 6.6 g/dL 11/19/2017 Comp Metabolic Aza506 GL OB 2.3 g/dL 11/19/2017 Comp Metabolic Yyi902 A/ G Ratio 1.9 Ratio 11/19/2017 Comp Metabolic Dft959 Os mo 288 mOsmo 11/19/2017 Tsh Ord6 hTSH II 1.54 uIU/mL 11/16/2016 Total Psa Ord10 PSA 1.92 ng/mL 11/16/2016 Cbc With Differential Ord2 WBC 4.80 K/ul 11/16/2016 Cbc With Differential Ord2 RBC 4.73 M/ul 11/16/2016 Cbc With Differential Ord2 HGB 14.3 g/dl 11/16/2016 Cbc With Differential Ord2 HCT 42.5 % 11/16/2016 Cbc With Differential Ord2 Neut% 57.5 % 11/16/2016 Cbc With Differential Ord2 MCV 89.9 fl 11/16/2016 Cbc With Differential Ord2 Lymph% 30.4 % 11/16/2016 Cbc With Differential Ord2 MCH 30.2 pg 11/16/2016 Cbc With Differential Ord2 [place]% 10.2 % 11/16/2016 Cbc With Differential Ord2 [...] 1.46 K/ul 11/16/2016 Cbc With Differential Ord2 [place] ABS# 0.5 K/ul 11/16/2016 Cbc With Differential Ord2 Eos ABS# 0.1 K/ul 11/16/2016 Cbc With Differential Ord2 Baso ABS# 0.0 K/ul 11/16/2016 Comp Metabolic Gxk543 NA 141 mEq/L 11/16/2016 Comp Metabolic Wjy244 K 4.2 mEq/L 11/16/2016 Comp Metabolic Ipv760 CL 106 mEq/L 11/16/2016 Comp Metabolic Wjy791 CO2 30.0 mEq/L 11/16/2016 Comp Metabolic Bpc626 AN ION GAP 9 11/16/2016 Comp Metabolic Sjv084 GL UCOSE 118 mg/dL 11/16/2016 Comp Metabolic Tyn157 Cr eat 1.2 mg/dL 11/16/2016 Comp Metabolic Wqf176 eG FR 61 ml/min/1.73m2 11/16 Comp Metabolic Mgq215 BUN 22 mg/dL 11/16/2016 Comp Metabolic Lwq025 B/ C Ratio 17.7 Ratio 11/16/2016 Comp Metabolic Ywy139 CA LCIUM 9.2 mg/dL 11/16/2016 Comp Metabolic Ihc026 AL K PHOS 91 U/L 11/16/2016 Comp Metabolic Wsy520 T(SGOT) 16 U/L 11/16/2016 Comp Metabolic Coj539 AL T(SGPT) 16 U/L 11/16/2016 Comp Metabolic Mrh489 BI LI T 0.9 mg/dL 11/16/2016 Comp Metabolic Xxj879 AL BUMIN 4.1 g/dL 11/16/2016 Comp Metabolic Dbh320 TP RO 6.4 g/dL 11/16/2016 Comp Metabolic Uvx716 GL OB 2.3 g/dL 11/16/2016 Comp Metabolic Qiy616 A/ G Ratio 1.8 Ratio 11/16/2016 Comp Metabolic Wvo028 Os mo 286 mOsmo 11/16/2016 Lipid Ord30 [...] 1.8 mg/dL 08/01/2015 B Type Natriuretic Peptide Ely8351 B-DISTRICT ADMINISTRATOR 13.10 pg/ml 08/01/2015 Lipid Ord30 CHOL 188 [...] Ord2 RDW 14.7 % 08/01/2015 Comp Metabolic Dys938 NA 138 mEq/L 08/01/2015 Comp Metabolic Oqk332 K 4.2 mEq/L 08/01/2015 Comp Metabolic Mca474 CL 104 mEq/L 08/01/2015 Comp Metabolic Wnw672 CO2 27.0 mEq/L 08/01/2015 Comp Metabolic Nwf401 AN ION GAP 11 08/01/2015 Comp Metabolic Nwq115 GL UCOSE 118 mg/dL 08/01/2015 Comp Metabolic Qvs218 Cr eat 1.2 mg/dL 08/01/2015 Comp Metabolic Qak858 eG FR 66 ml/min/1.73m2 08/01 Comp Metabolic Kmg759 BUN 19 mg/dL 08/01/2015 Comp Metabolic Zag861 B/ C Ratio 16.4 Ratio 08/01/2015 Comp Metabolic Alh518 CA LCIUM 8.7 mg/dL 08/01/2015 Comp Metabolic Vos125 AL K PHOS 85 U/L 08/01/2015 Comp Metabolic Nic932 T(SGOT) 16 U/L 08/01/2015 Comp Metabolic Gkd407 AL T(SGPT) 20 U/L 08/01/2015 Comp Metabolic Pyj517 BI LI T 0.7 mg/dL 08/01/2015 Comp Metabolic Lnu678 AL BUMIN 3.9 g/dL 08/01/2015 Comp Metabolic Srg089 TP RO 6.2 g/dL 08/01/2015 Comp Metabolic Okn037 GL OB 2.4 g/dL 08/01/2015 Comp Metabolic Cer977 A/ G Ratio 1.6 Ratio 08/01/2015 Comp Metabolic Rcm943 Os mo 279 mOsmo 08/01/2015 Tsh Ord6 hTSH II 1.79 uIU/mL 08/01/2015 Sed Rate Ord21 ESR 1 mm/hr 08/01/2015 Tsh Ord6 hTSH II 2.43 uIU/mL 07/07/2015 Folate Ord36 Folate 7.62 ng/mL 07/07/2015 B12 Dkj947 B12 228.00 pg/ml 07/07/2015 Review of Systems [...] pain 05/14/2019 Neurologic No syncope Psychiatric anxiety 0901/2019 Psychiatric depression 0 05/14/2019 Constitutional recent illness [...] pain 11/14/2016 Neurologic No syncope Psychiatric anxiety 03/0 04/2017 Psychiatric depression 0 11/14/2016 Constitutional recent illness [...] General 1994 Ears/Nose/Throat lips/teeth/gingiva Overall: benign lips 05/14/2019 None Full Exam - General 1995 Ears/Nose/Throat lips/teeth/gingiva Overall: normal dentition 05/14/2019 None Full Exam - General 1995 Ears/Nose/Throat oral cavity/pharynx/larynx Overall: oral mucosa clear 05/14/2019 None Full Exam - General 1995 Ears/Nose/Throat oral cavity/pharynx/larynx Overall: oropharyngeal mucosa clear 05/14/2019 None Full Exam - General 1994 Ears/Nose/Throat oral cavity/pharynx/larynx Overall: hypopharynx benign 05/14/2019 [...] General 1994 Ears/Nose/Throat lips/teeth/gingiva Overall: benign lips 02/23/2019 None Full Exam - General 1994 Ears/Nose/Throat lips/teeth/gingiva Overall: normal dentition 02/23/2019 None [...] Location: face 02/23/2019 on 3 on left faith, 2 on right faith and 1 each on dorsum of hands [...] Location: face 08/25/2018 on 3 on left faith, 2 on right faith and 1 each on dorsum of hands bilaterally Full Exam - General 1994 Neurologic deep tendon reflexes Overall: deep tendon reflexes intact 08/25/2018 None Full Exam - General 1994 Neurologic cranial nerves Overall: crainial nerves 2 - 12 grossly intact 08/25/2018 None Full Exam - General 1994 Psychiatric orientation/consciousness Overall: oriented to person, place and time 08/25/2018 None Full Exam - General [facility] Psychiatric mood and affect Overall: normal mood [...] 1994 Ears/Nose/Throat oral cavity/pharynx/larynx Overall: hypopharynx benign 11/04/2017 [...] Location: face 11/04/2017 on 3 on left faith, 2 on right faith and 1 each on dorsum of hands [...] clear 10/07/2017 None Full Exam - General 1995 Ears/Nose/Throat oral cavity/pharynx/larynx Overall: hypopharynx benign 10/07/2017 [...] CPT-4: J3301 08/25/2018 THER/PROPH/DIAG INJ SC/IM CPT-4: 40549 06/16/2018 TRIAMCINOLONE ACET I [place] NOS CPT-4: J3301 06/16/2018 PPPS, SUBSEQ VISIT CPT- 4: G0439 11/19/2017 DESTRUCT PREMALG LESION CPT-4: 73325 11/04/2017 DESTRUCT PREMALG LES 2-14 CPT-4: 96439 11/04/2017 PPPS, SUBSEQ VISIT CPT- 4: G0439 11/16/2016 THER/PROPH/DIAG INJ SC/IM CPT-4: 82996 07/25/2016 TRIAMCINOLONE ACET I [place] NOS CPT-4: J3301 07/25/2016 Vital Signs Date Vital 05/14/2019 Blood Pressure 1: 132/68 Code: 8480-6 BMI: 39.6 Code: 39370-6 Heart Rate 1: 53 bpm Height: 5'7" SpO2: 95% Weight: 253 lbs 02/23/2019 Blood Pressure 1: 164/72 Code: 8480-6 BMI: 41.0 Code: 44508-2 Heart Rate 1: 46 bpm Height: 5'7" SpO2: 95% Weight: 262 lbs 10/03/2018 Blood Pressure 1: 134/74 Code: 8480-6 BMI: 40.1 Code: 28176-5 Heart Rate 1: 55 bpm Height: 5'7" SpO2: 97% Temperature: 36.7 (C ) / 98.1 (F) Weight: 256 lbs 08/25/2018 Blood Pressure 1: 128/68 Code: 8480-6 BMI: 39.8 Code: 99859-8 Heart Rate 1: 55 bpm Height: 5'7" SpO2: 97% Weight: 254 lbs 06/16/2018 Blood Pressure 1: 120/67 Code: 8480-6 BMI: 40.1 Code: 35083-9 Heart Rate 1: 83 bpm Height: 5'7" SpO2: 95% Weight: 256 lbs 04/24/2018 Blood Pressure 1: 134/76 Code: 8480-6 BMI: 39.3 Code: 53736-7 Heart Rate 1: 55 bpm Height: 5'7" SpO2: 95% Weight: 251 lbs 11/19/2017 Blood Pressure 1: 130/62 Code: 8480-6 BMI: 38.1 Code: 31624-9 Heart Rate 1: 73 bpm Height: 5'7" SpO2: 93% Waist Measure (cm): 99 cm Weight: 243 lbs 11/04/2017 Blood Pressure 1: 136/68 Code: 8480-6 BMI: 38.2 Code: 23522-9 Heart Rate 1: 61 bpm Height: 5'7" SpO2: 98% Weight: 244 lbs 10/07/2017 Blood Pressure 1: 150/70 Code: 8480-6 BMI: 39.5 Code: 74474-4 Heart Rate 1: 65 bpm Height: 5'7" SpO2: 97% Weight: 252 lbs 06/03/2017 Blood Pressure 1: 140/70 Code: 8480-6 BMI: 37.9 Code: 67274-9 Heart Rate 1: 66 bpm Height: 5'7" SpO2: 96% Weight: 242 lbs 03/19/2017 Blood Pressure 1: 136/82 Code: 8480-6 BMI: 38.8 Code: 93873-4 Heart Rate 1: 58 bpm Height: 5'7" SpO2: 94% Weight: 247 lbs 8 oz 01/21/2017 Blood Pressure 1: 136/74 Code: 8480-6 BMI: 39.1 Code: 78369-6 Heart Rate 1: 58 bpm Height: 5'7" SpO2: 97% Weight: 249 lbs 8 oz 12/04/2016 Blood Pressure 1: 136/72 Code: 8480-6 Heart Rate 1: 55 bpm Height: 5'7" SpO2: 99% Weight: 11/16/2016 Blood Pressure 1: 124/76 Code: 8480-6 BMI: 39.2 Code: 91099-9 Heart Rate 1: 62 bpm Height: 5'7" SpO2: 96% Waist Measure (cm): 104 cm Weight: 250 lbs 11/14/2016 Blood Pressure 1: 152/60 Code: 8480-6 BMI: 39.8 Code: 10161-1 Heart Rate 1: 63 bpm Height: 5'7" SpO2: 94% Weight: 254 lbs 09/17/2016 Blood Pressure 1: 138/70 Code: 8480-6 BMI: 40.3 Code: 10381-1 Heart Rate 1: 60 bpm Height: 5'7" SpO2: 96% Weight: 257 lbs 08/03/2016 Blood Pressure 1: 148/78 Code: 8480-6 BMI: 39.9 Code: 23760-9 Heart Rate 1: 50 bpm Height: 5'7" SpO2: 97% Weight: 255 lbs 07/25/2016 Blood Pressure 1: 130/68 Code: 8480-6 BMI: 39.9 Code: 61323-4 Heart Rate 1: 61 bpm Height: 5'7" SpO2: 95% Weight: 255 lbs 03/22/2016 Blood Pressure 1: 136/76 Code: 8480-6 BMI: 39.0 Code: 77730-8 Heart Rate 1: 60 bpm Height: 5'7" SpO2: 98% Weight: 249 lbs 01/12/2016 Blood Pressure 1: 146/76 Code: 8480-6 BMI: 37.8 Code: 03014-5 Heart Rate 1: 59 bpm Height: 5'7" SpO2: 98% Weight: 241 lbs 8 oz 10/13/2015 Blood Pressure 1: 136/72 Code: 8480-6 BMI: 37.6 Code: 06496-0 Heart Rate 1: 70 bpm Height: 5'7" SpO2: 99% Weight: 240 lbs 09/13/2015 Blood Pressure 1: 140/80 Code: 8480-6 BMI: 37.2 Code: 08667-6 Heart Rate 1: 64 bpm Height: 5'7" SpO2: 97% Weight: 237 lbs 8 oz 07/05/2015 Blood Pressure 1: 170/84 Code: 8480-6 Blood Pressure 1: 130/70 Code: 8480-6 BMI: 35.9 Code: 35204-1 Heart Rate 1: 67 bpm Height: 5'7" [...] exercise 11/19/2017 None Annual Medicare Wellness Exam Handli ng Stress usually neha effectively 11/19/2017 None Annual [...] 11/16/2016 None Annual Medicare Wellness Exam Handli ron Stress has problems coping 11/16/2016 None Annual [...] Encounters Encounter Performer Loca tion Codes Date () [id number] EST. P ATIENT, LEVEL IV Diagnosis: Essential (primary) hypertension[ICD10: I10] Diagnosis: Mixed hyperlipidemia[ICD10: E78.2] Diagnosis: Generalized anxiety disorder[ICD10: F41.1] Kathy Espinosa MD, [facility] CPT-4: 73177 05/14/2019 ([id number]) [id number] EST. P ATIENT, LEVEL IV Diagnosis: Essential (primary) hypertension[ICD10: I10] Diagnosis: Gastro-esophageal reflux disease without esophagitis[ICD10: K21.9] Diagnosis: Mixed hyperlipidemia[ICD10: E78.2] Diagnosis: Impaired fasting glucose[ICD10: R73.01] Kathy Espinosa MD, [facility] CPT-4: 81582 02/23/2019 ([id number]) [id number] EST. P ATIENT, LEVEL III Diagnosis: Cough[ICD10: R05] Diagnosis: Acute upper respiratory infection, unspecified[ICD10: J06.9] Amanda Espinosa MD, [facility] CPT-4: 33859 10/03/2018 ([id number]) 45975 EST. P ATIENT, LEVEL IV Diagnosis: Essential (primary) hypertension[ICD10: I10] Diagnosis: Mixed hyperlipidemia[ICD10: E78.2] Diagnosis: Other allergic rhinitis[ICD10: J30.89] Kathy Espinosa MD, [facility] CPT-4: 75260 08/25/2018 [id number] EST. PATIENT, LEVEL III Diagnosis: Other pruritus[ICD10: L29.8] Diagnosis: Allergic contact dermatitis due to plants, except food[ICD10: L23.7] Alba Espinosa MD, [facility] CPT-4: 70302 06/16/2018 ([id number]) 40053 EST. P ATIENT, LEVEL IV Diagnosis: Essential (primary) hypertension[ICD10: I10] Diagnosis: Allergic dermatitis of left upper eyelid[ICD10: H01.114] Diagnosis: Allergic rhinitis due to pollen[ICD10: J30.1] Kathy Espinosa MD, [facility] CPT-4: 08689 04/24/2018 ([id number]) [id number] EST. P ATIENT, LEVEL IV Diagnosis: Essential (primary) hypertension[ICD10: I10] Diagnosis: Mixed hyperlipidemia[ICD10: E78.2] Diagnosis: Actinic keratosis[ICD10: L57.0] Kathy Espinosa MD, [facility] CPT-4: 43164 11/04/2017 ([id number]) 44113 EST. P ATIENT, LEVEL IV Diagnosis: Essential (primary) hypertension[ICD10: I10] Diagnosis: Cervicalgia[ICD10: M54.2] Diagnosis: Myalgia[ICD10: M79.1] Kathy Espinosa MD, [facility] CPT-4: 92051 10/07/2017 ([id number]) 47032 EST. P ATIENT, LEVEL IV Diagnosis: Essential (primary) hypertension[ICD10: I10] Diagnosis: Major depressive disorder, recurrent, mild[ICD10: F33.0] Diagnosis: Generalized anxiety disorder[ICD10: F41.1] Kathy Espinosa MD, [facility] CPT-4: 83086 06/03/2017 ([id number]) 22336 EST. P ATIENT, LEVEL IV Diagnosis: Essential (primary) hypertension[ICD10: I10] Diagnosis: Mixed hyperlipidemia[ICD10: E78.2] Diagnosis: Low back pain[ICD10: M54.5] Kathy Espinosa MD, [facility] CPT-4: 17212 03/19/2017 ([id number]) 43024 EST. P ATIENT, LEVEL III Diagnosis: Pain in right lower leg[ICD10: M79.661] Diagnosis: Localized edema[ICD10: R60.0] Diagnosis: Contusion of right lower leg, initial encounter[ICD10: S80.11XA] Amanda Espinosa MD, [facility] CPT-4: 62976 01/21/2017 ([id number]) 51804 EST. P ATIENT, LEVEL IV Diagnosis: Mixed hyperlipidemia[ICD10: E78.2] Diagnosis: Major depressive disorder, recurrent, moderate[ICD10: F33.1] Kathy Espinosa MD, [facility] CPT-4: 86122 12/04/2016 ([id number]) 35483 EST. P ATIENT, LEVEL IV Diagnosis: Mixed hyperlipidemia[ICD10: E78.2] Diagnosis: Major depressive disorder, recurrent, mild[ICD10: F33.0] Diagnosis: Generalized anxiety disorder[ICD10: F41.1] Diagnosis: Essential (primary) hypertension[ICD10: I10] Diagnosis: Chronic obstructive pulmonary disease with (acute) exacerbation[ICD10: J44.1] Kathy Espinosa MD, [facility] CPT-4: 48015 11/14/2016 82839 EST. PATIENT, LEVEL III Diagnosis: Acute laryngopharyngitis[ICD10: J06.0] Diagnosis: Other allergic rhinitis[ICD10: J30.89] Alba Espinosa MD, [facility] CPT-4: 72293 09/17/2016 58786 EST. PATIENT, LEVEL III Diagnosis: Contusion of right lower leg, initial encounter[ICD10: S80.11XA] Alba Espinosa MD, [facility] CPT-4: 89724 08/03/2016 ([id number]) 25574 EST. P ATIENT, LEVEL IV Diagnosis: Essential (primary) hypertension[ICD10: I10] Diagnosis: Mixed hyperlipidemia[ICD10: E78.2] Diagnosis: Acute recurrent maxillary sinusitis[ICD10: J01.01] Diagnosis: Chronic obstructive pulmonary disease with (acute) exacerbation[ICD10: J44.1] Kathy Espinosa MD, [facility] CPT-4: 86315 07/25/2016 ([id number]) 85981 EST. P ATIENT, LEVEL IV Diagnosis: Essential (primary) hypertension[ICD10: I10] Diagnosis: Gastro-esophageal reflux disease without esophagitis[ICD10: K21.9] Diagnosis: Generalized anxiety disorder[ICD10: F41.1] Diagnosis: Major depressive disorder, recurrent, mild[ICD10: F33.0] Kathy Espinosa MD, [facility] CPT-4: 03026 03/22/2016 ([id number]) 43748 EST. P ATIENT, LEVEL IV Diagnosis: Essential (primary) hypertension[ICD10: I10] Diagnosis: Coronary angioplasty status[ICD10: Z98.61] Diagnosis: Hyperlipidemia, unspecified[ICD10: E78.5] Diagnosis: Major depressive disorder, recurrent, moderate[ICD10: F33.1] Kathy Espinosa MD, [facility] CPT-4: 56125 01/12/2016 ([id number]) 50090 EST. P ATIENT, LEVEL IV Diagnosis: Essential (primary) hypertension[ICD10: I10] Diagnosis: Gastro-esophageal reflux disease without esophagitis[ICD10: K21.9] Kathy Espinosa MD, [facility] CPT-4: 97154 10/13/2015 ([id number]) 65202 EST. P ATIENT, LEVEL IV Diagnosis: Gastro-esophageal reflux disease without esophagitis[ICD10: K21.9] Diagnosis: Essential (primary) hypertension[ICD10: I10] Diagnosis: Coronary angioplasty status[ICD10: Z98.61] Kathy Espinosa MD, C CPT-4: 52246 09/13/2015 ([id number]) OFFICE [facility], [facility] - LEVEL 4 Diagnosis: Hyperlipidemia, unspecified[ICD10: E78.5] Diagnosis: Personal history of other diseases of the circulatory system[ICD10: Z86.79] Diagnosis: Unspecified osteoarthritis, unspecified site[ICD10: M19.90] Diagnosis: Polyneuropathy, unspecified[ICD10: G62.9] Kathy Espinosa MD, C CPT-4: 38562 07/05/2015 Plan of Care Planned Activity Notes [...] exposure. No change in current medications. 05/14/2019 Patient Education: Patient Medication Summary Completed 05/14/2019 Patient Education: Cholesterol Management Completed 05/14/2019 Appointment: Kathy Espinosa WPtel: [facility]5 [facility]66[facility] (15 min) Moderate 04/27/2019 Visit Plan: Hypertension [...] mile walks/rides. 02/23/2019 Appointment: Kathy Espinosa WPtel: [facility]1 [facility] (15 min) Moderate 02/23/2019 Patient Education: Patient Medication Summary Completed 02/23/2019 Patient Education: Cholesterol Management Completed 02/23/2019 Appointment: Amanda Romero WPtel: [phone] [phone] (15 min) Moderate 02/06/2019 Visit Plan: URI - Pt advised to inc rease fluids, vitamin C. Discussed natural and expected course of this diagnosis and need to alert me if symptoms do not follow expected course, or if any worse. RX sent to patient's pharmacy. 10/03/2018 Appointment: Amanda Romero WPtel: [phone] [phone] (30 min) Complex 10/03/2018 Patient Education: Patient [...] clinic 08/25/2018 Appointment: Kathy Espinosa WPtel: [phone] [facility] (15 min) Moderate 08/25/2018 Patient Education: Patient [...] they worsen. 06/16/2018 Appointment: Alba Fajardo WPtel: [facility]5 [facility] (15 min) Moderate 06/16/2018 Patient Education: Patient Medication Summary Completed 06/16/2018 Patient Education: Poison Ashley Completed 06/16/2018 Appointment: Amanda Romero WPtel: [address] [place], [place] [phone] [place] (15 min) Moderate 05/23/2018 Appointment: Kathy Espinosa WPtel: [address] [place], [place] [phone] (15 min) Moderate 05/15/2018 Visit Plan: Hypertension [...] the office 04/24/2018 Appointment: Kathy Espinosa WPtel: [address] [place], [place] [phone] (15 min) Moderate 04/24/2018 Patient Education: Patient Medication Summary Completed 04/24/2018 Appointment: Kathy Espinosa WPtel: [address] [place], [place] [phone] [place] (15 min) Moderate 02/25/2018 Appointment: Kathy Espinosa WPtel: [address] [place], [place] [phone] (15 min) Moderate 02/20/2018 Appointment: Kathy Espinosa WPtel: [address] [place], [place] [phone] (15 min) Moderate 02/13/2018 Patient Education: Patient Medication Summary Completed 11/20/2017 Visit Plan: Medicare Exam - today w bar discussed the patients past history, immunizations, preventative [...] care surrogate. 11/19/2017 Appointment: Amanda Romero WPtel: [phone] [facility] - Annual Wellness Visit 11/19/2017 Patient Education: [...] - one lesion each hand and on faith x 3 lesions and 2 lesions right faith 11/04/2017 Appointment: Kathy Espinosa WPtel: [facility] [place] (15 min) Moderate 11/04/2017 Patient Education: Patient [...] two weeks. 10/07/2017 Appointment: Kathy Espinosa WPtel: [facility] [place] (15 min) Moderate 10/07/2017 Patient Education: Patient [...] flu shots 06/03/2017 Appointment: Kathy Espinosa WPtel: [facility] [place] (15 min) Moderate 06/03/2017 Patient Education: Patient Medication Summary Completed 06/03/2017 Patient Education: Obesity Completed 06/03/2017 Appointment: [facility]Ptel[phone] [place] (15 min) Moderate 05/22/2017 Visit Plan: Hypertension - well con trolled [...] of back 03/19/2017 Appointment: Kathy Espinosa WPtel: [phone] [facility] [place] (15 min) Moderate 03/19/2017 Patient Education: Patient [...] venous doppler. 01/21/2017 Appointment: Amanda Romero [facility]Ptel: [phone] [place] (15 min) Moderate 01/21/2017 Patient Education: [...] current medications. 12/04/2016 Appointment: Kathy Espinosa WPtel: [phone] [facility] (15 min) Moderate 12/04/2016 Patient Education: [...] care surrogate. 11/16/2016 Appointment: Alba Fajardo WPtel: [phone] [facility] - Annual Wellness Visit 11/16/2016 Patient Education: [...] acute concerns. 11/14/2016 Appointment: Kathy Espinosa WPtel: [phone] [facility] [place] (15 min) Moderate 11/14/2016 Patient Education: Patient Medication Summary Completed 11/14/2016 Patient Education: Obesity Completed 11/14/2016 Appointment: Kathy Espinosa WPtel: [phone] [facility] [place] (15 min) Moderate 10/24/2016 Visit [...] pain. 08/03/2016 Appointment: Amanda Romero WPtel: [phone] [place] (15 min) Moderate 08/03/2016 Patient Education: [...] show improvement. 07/25/2016 Appointment: Kathy Espinosa WPtel: [address] [place], [place] [address] (15 min) Moderate 07/25/2016 Patient Education: Patient [...] current medications. 01/12/2016 Appointment: Kathy Espinosa WPtel: [phone] [facility]66[facility] (15 min) Moderate 01/12/2016 Patient Education: Patient Medication Summary Completed 01/12/2016 Patient Education: Obesity Completed 01/12/2016 Patient Education: Hypertension Completed 01/12/2016 Appointment: Kathy Espinosa WPtel: [phone] [facility]6[address] (15 min) Moderate 12/01/2015 Visit Plan: Hypertension - well con trolled [...] not improving. 10/13/2015 Appointment: Kathy Espinosa WPtel: [facility] (15 min) Moderate 10/13/2015 Patient Education: [...] TWICE DAILY 09/13/2015 Appointment: Kathy Espinosa WPtel: [address] [place] [address] (15 min) Moderate 09/13/2015 Patient Education: Patient Medication Summary Completed 09/13/2015 Patient Education: Hypertension Completed 09/13/2015 Appointment: Kathy Espinosa WPtel: [address] [place] [address] (15 min) Moderate 08/09/2015 Visit Plan: Hyperlipidemia [...] and lipitor. 07/05/2015 Appointment: Kathy Espinosa WPtel: [address] [place] [address] New Patient 07/05/2015 Patient Education: Patient Medication [...] of back probiotics - Culture lle, norton colon mitch, or generic . URI [...] will send a refer ral to [facility] for physical therapy for your neck . [...] - one lesion each hand and on faith x 3 lesions and 2 lesions right faith
[2020-04-12] MEDS ORDERED: TRAM-42 PO (22:10)
[2020-04-12] MEDS ORDERED: MELO15TA14 PO (22:10)
--- NOTE | 2020-04-12 22:10 | ED Chest Pain ---
General Chief Complaint: Chest Pain Stated Complaint: CHEST PAIN Nursing Triage Note: pt states he fell two days ago and is very sore from the fall. He has been very sore. Tonight he sneezed and he felt something pop midsternal and feels severe midsternal CP. Denies all other symptoms Nursing Sepsis Screen: No Definite Risk Allergies and Home Medications Allergies Coded Allergies: atorvastatin (Verified Allergy, Unknown, 02/25/18) Home Medications Ascorbic Acid 1,000 Mg Tablet.er, 1,000 MG PO DAILY, (Reported) Aspirin 81 Mg Tablet.dr, 81 MG PO HS, (Reported) B Complex with Vitamin C 1 Each Tablet, 1 EACH PO DAILY, (Reported) Clopidogrel Bisulfate 75 Mg Tablet, 75 MG PO DAILY, (Reported) Escitalopram Oxalate 20 Mg Tablet, 30 MG PO HS, (Reported) TAKE 1 AND 1/2 (20MG) TABLETS AT BEDTIME FOR A TOTAL OF 30MG Folic Acid 0.4 Mg Tablet, 0.4 MG PO DAILY, (Reported) Metoprolol Succinate 50 Mg Tab.er.24h, 50 MG PO DAILY Prescribed by: SAMIR CONNOLLY on 02/25/18 1420 Pantoprazole Sodium 40 Mg Tablet.dr, 40 MG PO DAILY, (Reported) Rosuvastatin Calcium 10 Mg Tablet, 10 MG PO EVERY OTHER DAY, (Reported) Past Iaulwyo-Duoyeu-Nxeqdo Hx Patient Social History Alcohol Beverage of Choice: Beer Type Used: Cigarettes Former Smoker, Quit: Feb 25, 1998 Recent Foreign Travel: No Contact w/Someone Who Travel: No Recent Infectious Disease Expo: No Immunizations Up To Date Tetanus Booster (TDap): Unknown Date of Pneumonia Vaccine: Mar 29, 2015 Past Medical History Surgeries: Yes (ROTATOR CUFF CALLY. CALLY. KNEE SCOPES, quad bypass) CABG, Coronary Stent, Orthopedic Respiratory: No Cardiac: Yes (quad bypass-03/16/15) Coronary Artery Disease, High Cholesterol Neurological: No Reproductive Disorders: No HIV/AIDS: No Gastrointestinal: Yes Gastroesophageal Reflux Musculoskeletal: Yes (CALLY. ROTATOR CUFF SURGERY. knees scoped .) Chronic Back Pain Endocrine: No Cataract Cancer: No Psychosocial: No Integumentary: No Blood Disorders: No Adverse Reaction/Blood Tranf: No Family Medical History Abdominal aortic aneurysm 19 FATHER (79 YEARS OLD) Physical Exam Vital Signs Vital Signs - First Documented 04/12/20 20:17 Temp 37.6 Pulse 58 Resp 24 B/P (MAP) 148/66 (93) Pulse Ox 97 O2 Delivery Room Air Capillary Refill : Less Than 3 Seconds Height, Weight, BMI Height: 5'9.00" Weight: 247lbs. 0.0oz. 112.541352ar; 243.00 BMI Method:Stated Progress/Results/Core Measures Results/Orders Lab Results Laboratory Tests Test 04/12/20 20:20 Range/Units White Blood Count 6.1 4.3-11.0 10^3/uL Red Blood Count 5.31 4.35-5.85 10^6/uL Hemoglobin 15.2 13.3-17.7 G/DL Hematocrit 46 40-54 % Mean Corpuscular Volume 87 80-99 FL Mean Corpuscular Hemoglobin 29 25-34 PG Mean Corpuscular Hemoglobin Concent 33 32-36 G/DL Red Cell Distribution Width 13.6 10.0-14.5 % Platelet Count 179 130-400 10^3/uL Mean Platelet Volume 11.3 H 7.4-10.4 FL Neutrophils (%) (Auto) 57 42-75 % Lymphocytes (%) (Auto) 34 12-44 % Monocytes (%) (Auto) 8 0-12 % Eosinophils (%) (Auto) 2 0-10 % Basophils (%) (Auto) 0 0-10 % Neutrophils # (Auto) 3.5 1.8-7.8 X 10^3 Lymphocytes # (Auto) 2.1 1.0-4.0 X 10^3 Monocytes # (Auto) 0.5 0.0-1.0 X 10^3 Eosinophils # (Auto) 0.1 0.0-0.3 10^3/uL Basophils # (Auto) 0.0 0.0-0.1 10^3/uL Prothrombin Time 12.5 12.2-14.7 SEC INR Comment 0.9 0.8-1.4 Activated Partial Thromboplast Time 26 24-35 SEC Sodium Level 143 135-145 MMOL/L Potassium Level 4.2 3.6-5.0 MMOL/L Chloride Level 107 98-107 MMOL/L Carbon Dioxide Level 23 21-32 MMOL/L Anion Gap 13 5-14 MMOL/L Blood Urea Nitrogen 18 7-18 MG/DL Creatinine 1.40 H 0.60-1.30 MG/DL Estimat Glomerular Filtration Rate 49 BUN/Creatinine Ratio 13 Glucose Level 129 H 70-105 MG/DL Calcium Level 9.3 8.5-10.1 MG/DL Corrected Calcium 9.0 8.5-10.1 MG/DL Magnesium Level 2.0 1.6-2.4 MG/DL Total Bilirubin 0.9 0.1-1.0 MG/DL Aspartate Amino Transf (AST/SGOT) 18 5-34 U/L Alanine Aminotransferase (ALT/SGPT) 22 0-55 U/L Alkaline Phosphatase 100 40-136 U/L Total Creatine Kinase 156 30-200 U/L Creatine Kinase MB 2.1 <6.6 NG/ML Myoglobin 84.4 10.0-92.0 NG/ML Troponin I < 0.028 <0.028 NG/ML B-Type Natriuretic Peptide 68.2 <100.0 PG/ML Total Protein 7.6 6.4-8.2 GM/DL Albumin 4.4 3.2-4.5 GM/DL Amylase Level 56 25-125 U/L Lipase 33 8-78 U/L My Orders Orders - MODESTO BENDER DO Cbc With Automated Diff (04/12/20 20:20) Magnesium (04/12/20 20:20) Chest 1 View, Ap/Pa Only (04/12/20 20:20) Ekg Tracing (04/12/20 20:20) Comprehensive Metabolic Panel (04/12/20 20:20) Myoglobin Serum (04/12/20 20:20) Protime With Inr (04/12/20 20:20) Partial Thromboplastin Time (04/12/20 20:20) O2 (04/12/20 20:20) Monitor-Rhythm Ecg Trace Only (04/12/20 20:20) Ed Iv/Invasive Line Start (04/12/20 20:20) Creatine Kinase (04/12/20 20:20) Creatine Kinase Mb (04/12/20 20:20) Lipase (04/12/20 20:20) Amylase (04/12/20 20:20) BNP (04/12/20 20:20) Nitroglycerin 0.4 Mg Btl 25's (Nitrostat (04/12/20 20:30) Aspirin Chewable Tablet (Baby Aspirin Ch (04/12/20 20:30) Troponin I (04/12/20 20:20) Ed Iv/Invasive Line Start (04/12/20 20:59) Ns Iv 1000 Ml (Sodium Chloride 0.9%) (04/12/20 20:59) Ct Chest/Abdomen/Pelvis W (04/12/20 20:59) Iohexol Injection (Omnipaque 350 Mg/Ml 1 (04/12/20 21:15) Received Contrast (Hold Metformin- Contr (04/12/20 21:15) Ns (Ivpb) (Sodium Chloride 0.9% Ivpb Bag (04/12/20 21:15) Ketorolac Injection (Toradol Injection) (04/12/20 22:15) Medications Given in ED Current Medications Medications Dose Ordered Sig/Trinity Route Start Time Stop Time Status Last Admin Dose Admin Aspirin 324 mg ONCE ONCE PO 04/12/20 20:30 04/12/20 20:31 DC 04/12/20 20:38 324 MG Vital Signs/I&O 04/12/20 20:17 Temp 37.6 Pulse 58 Resp 24 B/P (MAP) 148/66 (93) Pulse Ox 97 O2 Delivery Room Air Blood Pressure Mean: 93 Departure Impression Primary Impression: Chest wall pain Additional Impressions: Chest wall contusion Status post fall Disposition: 01 HOME, SELF-CARE Condition: Stable Departure-Patient Inst. Referrals: KASEY MCCLELLAN MD (PCP/Family) Primary Care Physician Patient Instructions: Blunt Chest Trauma (DC) Add. Discharge Instructions: HOME, REST SLOW POSITION CHANGES FOLLOW UP WITH YOUR DR IN 4-5 DAYS IF NO BETTER, RETURN TO WORSE All discharge instructions reviewed with patient and/or family. Voiced understanding. Scripts Tramadol HCl (Ultram) 50 Mg Tablet 50 MG PO Q4H for Pain, #20 TAB Prov: YULIA,MODESTO K DO 04/12/20 Meloxicam (Mobic) 15 Mg Tablet 15 MG PO DAILY, #10 TAB Prov: YULIA,MODESTO K DO 04/12/20 YULIA,MODESTO K DO Apr 12, 2020 22:10
--- OUTSIDE RECORDS SUMMARY | 2020-04-12 22:10 | XMS REPORT | CCD ---
Author Author Joaquín Espinosa Organization [facility] Address [address] [place] [address] Phone Care Team Providers Care Cafeteria Manager Name Role Phone PP Unavailable CCM Unavailable Summary Purpose Interface Exchange Insurance Providers Payer name Policy type / Coverage type Covered democrat ID Effective Begin Date Effective End Date WPS Medicare Part B Medicare Part B [id number] Unknown Cigna Medicare Part B 36 [id number] Unknown Family history Grandfather Diagnosis Age At Onset lung cancer Unknown Runs in the family Diagnosis Age At Onset Cancer Unknown Grandfather Diagnosis Age At Onset Cancer Unknown Social History Social History Element Codes Description Effective Dates Marital status Unknown M arried Nitza 07/05/2015 Number of children Unknown 3 07/05/2015 Employment Unknown Retir ed 07/05/[address]: 0853308 Quit over 10 years ago 07/05/[address]: 889011 Currently drinks alcohol beer 07/05/2015 Allergies, Adverse Reactions, Alerts Substance Reaction Codes Entered Date Inactivated Date Status * NO KNOWN DRUG MEIR RGIES Unknown 07/05/2015 No Inactive Date Active Past Medical History Illness Codes Condition Status Onset Date Resolved Date Essential (primary) hypertension ICD-9: 401.1 ICD-10: I10 Active 07/24/2016 Unknown Gastro-esophageal re flux disease without esophagitis ICD-9: 530.81 ICD-10: K21.9 Active 03/21/2016 Unknown Impaired fasting glu cose ICD-9: 790.21 ICD-10: R73.01 Active 11/20/2017 Unknown Mixed hyperlipidemia ICD-9: 272.2 ICD-10: E78.2 Active 07/24/2016 Unknown Acute upper respirat ory infection, unspecified [...] ICD-10: J30.1 Active 04/24/2018 Unknown Encounter for [facility] adult medical examination without abnormal findings ICD-9: V70.9 ICD-10: Z00.00 Active 11/16/2016 Unknown Actinic keratosis ICD-9: 702.0 ICD-10: L57.0 Active 11/04/2017 Unknown Cervicalgia ICD-9: 723.1 ICD-10: M54.2 Active 10/07/2017 Unknown Myalgia ICD-9: 729.1 ICD-10: M79.1 Active 10/07/2017 Unknown Generalized anxiety disorder ICD-9: 300.02 ICD-10: F41.1 Active 03/21/2016 Unknown Major depressive dis order, recurrent, mild [...] hypertension ICD-9: 401.1 ICD-10: I10 07/24/2016 Active Gastro-esophageal re flux disease without esophagitis ICD-9: 530.81 ICD-10: K21.9 03/21/2016 Active Impaired fasting glu cose ICD-9: 790.21 ICD-10: R73.01 11/20/2017 Active Mixed hyperlipidemia ICD-9: 272.2 ICD-10: E78.2 07/24/2016 Active Acute upper respirat ory infection, unspecified [...] 300.02 ICD-10: F41.1 03/21/2016 Active Major depressive dis order, recurrent, mild [...] E R 10 mEq tablet,extended release RxNorm: 543966 1 TABLET(S) PO DAILY NEEDED 04/30/2019 06/28/2019 Active furosemide 20 mg tablet RxNorm: 078226 1 TABLET(S) PO DAILY NEEDED 04/30/2019 06/28/2019 Ac tive furosemide 20 mg tablet RxNorm: 513657 1 TABLET(S) PO DAILY NEEDED 03/19/2019 04/27/2019 In active potassium chloride E R 10 mEq tablet,extended release RxNorm: 125775 1 TABLET(S) PO DAILY NEEDED 03/19/2019 04/27/2019 Inactive escitalopram 20 mg t ablet RxNorm: 457007 TABLET(S) TAKE ONE & ONE-HALF TABLETS BY MOUTH IN THE EVENING 03/16/2019 No Stop Date Active furosemide 20 mg tablet RxNorm: 110803 1 TABLET(S) PO DAILY NEEDED 02/27/2019 03/18/2019 In active Patient requests 90 days supply potassium chloride E R 10 mEq tablet,extended release RxNorm: 920345 1 TABLET(S) PO DAILY NEEDED 02/27/2019 06/26/2019 Active Patient requests 90 days s upply potassium chloride E R 10 mEq tablet,extended release RxNorm: 877144 1 Tablet(s) PO daily as needed 02/27/2019 02/26/2019 Inactive furosemide 20 mg tablet RxNorm: 302187 1 Tablet(s) PO daily as needed 02/27/2019 02/26/2019 In active potassium chloride E R 10 mEq tablet,extended release RxNorm: 164843 1 Tablet(s) PO daily as needed 02/27/2019 02/26/2019 Inactive naproxen 500 mg tablet RxNorm: 663648 1 TABLET(S) BID NEEDED FOR PAIN 01/26/2019 07/24/2019 Ac tive Crestor 10 mg tablet RxNorm: 456534 1 Tablet(s) PO every other day 11/03/2018 01/26/2020 Ac tive Zithromax Z-Ralph 250 mg tablet RxNorm: 948600 1 Tablet(s) PO UD 10/13/2018 10/12/2018 Inactive Zithromax Z-Ralph 250 mg tablet RxNorm: 233675 1 Tablet(s) PO UD 10/13/2018 10/17/2018 Inactive escitalopram 20 mg t ablet RxNorm: 972459 Tablet(s) TAKE ONE & ONE-HALF TABLETS BY MOUTH IN THE EVENING 10/07/2018 03/15/2019 Inactive Keflex 500 mg capsule RxNorm: 721333 1 Capsule(s) PO TID 10/03/2018 10/09/2018 Inactive Kenalog 40 mg/mL jenni pension for injection RxNorm: 8704802 Milliliter(s) Inj 10/03/2018 10/03/2018 In active pantoprazole 40 mg t ablet,delayed release RxNorm: 202692 1 Tablet(s) BID 09/24/2018 12/17/2019 Ac tive naproxen 500 mg tablet RxNorm: 642079 1 Tablet(s) BID as needed for pain 09/24/2018 01/25/2019 In active Kenalog 40 mg/mL jenni pension for injection RxNorm: 6165650 1 Milliliter(s) Inj 08/25/2018 08/25/2018 In active pantoprazole 40 mg t ablet,delayed release RxNorm: 284868 TAKE 1 TABLET BY MOUT H TWICE DAILY 06/24/2018 09/23/2018 Inactive betamethasone diprop ionate 0.05 % topical cream RxNorm: 596888 1 Application TOP BID as needed 06/16/2018 No Stop Date Active prednisone 20 mg tablet RxNorm: 269966 2 Tablet(s) PO daily 06/16/2018 06/20/2018 Inactive Kenalog 40 mg/mL jenni pension for injection RxNorm: 6282162 1 Milliliter(s) Inj 06/16/2018 06/16/2018 In active naproxen 500 mg tablet RxNorm: 431701 TAKE 1 TABLET BY MOUTH TWICE DAILY NE EDED FOR PAIN 05/13/2018 09/23/2018 Inactive naproxen 500 mg tablet RxNorm: 729090 TAKE ONE TABLET BY MOUTH TWICE DAILY NEEDED FOR PAIN 01/07/2018 05/12/2018 Inactive escitalopram 20 mg t ablet RxNorm: 692678 TAKE ONE & ONE-HALF T ABLETS BY MOUTH IN THE EVENING 12/16/2017 10/06/2018 Inactive pantoprazole 40 mg t ablet,delayed release RxNorm: 075400 1 Tablet(s) PO BID 11/21/2017 03/20/2018 In active Crestor 10 mg tablet RxNorm: 718856 1 Tablet(s) PO every other day 10/07/2017 11/02/2018 In active naproxen 500 mg tablet RxNorm: 359436 TAKE ONE TABLET BY MOUTH TWICE DAILY NEEDED FOR PAIN 06/27/2017 12/23/2017 Inactive escitalopram 20 mg t ablet RxNorm: 417083 1 Tablet(s) PO QPM 06/03/2017 05/28/2018 Inactive pantoprazole 40 mg t ablet,delayed release RxNorm: 777512 1 Tablet(s) PO BID 03/19/2017 05/07/2017 In active naproxen 500 mg tablet RxNorm: 342349 TAKE ONE TABLET BY MOUTH TWICE DAILY NEEDED FOR PAIN 02/11/2017 06/10/2017 Inactive naproxen 500 mg tablet RxNorm: 209336 TAKE ONE TABLET BY MOUTH TWICE DAILY NEEDED FOR PAIN 12/14/2016 02/10/2017 Inactive escitalopram 20 mg t ablet RxNorm: 846274 1.5 Tablet(s) PO QPM 12/04/2016 06/02/2017 Inactive buspirone 5 mg tablet RxNorm: 785002 1 Tablet(s) PO BID 11/14/2016 12/03/2016 Inactive amoxicillin 500 mg c apsule RxNorm: 124219 1 Capsule(s) PO TID 09/17/2016 09/26/2016 Inactive prednisone 20 mg tablet RxNorm: 137786 2 Tablet(s) PO daily 09/17/2016 09/21/2016 Inactive escitalopram 20 mg t ablet RxNorm: 014556 1 Tablet(s) PO QPM 08/28/2016 12/03/2016 Inactive naproxen 500 mg tablet RxNorm: 698812 TAKE ONE TABLET BY MOUTH TWICE DAILY NEEDED FOR PAIN 08/01/2016 11/28/2016 Inactive sulfamethoxazole 800 mg-trimethoprim 160 mg tablet RxNorm: 850161 1 Tablet(s) PO BID 07/25/2016 07/31/2016 Inactive Kenalog 40 mg/mL jenni pension for injection RxNorm: 9163718 Milliliter(s) Inj 07/25/2016 07/25/2016 In active Symbicort 80 mcg-4.5 mcg/actuation HFA aerosol inhaler RxNorm: 8316690 2 INH QHS 07/25/2016 09/11/2016 In active escitalopram 20 mg t ablet RxNorm: 370106 1 Tablet(s) PO QPM 03/22/2016 08/27/2016 Inactive alprazolam 0.5 mg di sintegrating tablet RxNorm: 773249 1 Tablet(s) PO TID as needed anxiety 03/22/2016 11/13/2016 Inactive atorvastatin 20 mg t ablet RxNorm: 856215 1 Tablet(s) PO daily 01/12/2016 10/06/2017 Inactive Lexapro 10 mg tablet RxNorm: 404386 1 Tablet(s) PO QPM 01/12/2016 03/21/2016 Inactive pantoprazole 40 mg t ablet,delayed release RxNorm: 886034 1 Tablet(s) PO daily 10/13/2015 11/11/2015 In active pantoprazole 40 mg t ablet,delayed release RxNorm: 173246 1 Tablet(s) PO BID 09/13/2015 10/12/2015 In active naproxen 500 mg tablet RxNorm: 965307 Tablet(s) PO BID as needed for pain 07/05/2015 07/31/2016 In active folic acid 400 mcg t ablet RxNorm: 424751 1 Tablet(s) PO daily No Start Date Active Vitamin B12 500 mcg RxNorm: 2000 Microgram(s) PO daily No Start Date Active Toprol XL 50 mg tabl et,extended release RxNorm: 360283 1 Tablet(s) PO daily No Start Date Active Tudorza Pressair 400 mcg/actuation breath activated RxNorm: 4244426 1 INH QAM No Start Date Active aspirin 81 mg capsul e,delayed release RxNorm: 015973 1 Capsule(s) PO daily No Start Date Active Incruse Ellipta 62.5 mcg/actuation powder for inhalation RxNorm: 3324636 1 INH daily No Start Date Active clopidogrel 75 mg ta blet RxNorm: 986887 1 Tablet(s) PO daily No Start Date Active Symbicort 80 mcg-4.5 mcg/actuation HFA aerosol inhaler RxNorm: 5377908 2 INH QHS No Start Date 07/24/2016 Inactive pantoprazole 40 mg t ablet,delayed release RxNorm: 856855 1 Tablet(s) PO daily No Start Date 09/12/2015 Inactive atorvastatin 40 mg t ablet RxNorm: 308743 1 Tablet(s) PO daily No Start Date 01/11/2016 Inactive furosemide 20 mg tablet RxNorm: 445325 1 Tablet(s) PO daily No Start Date 09/11/2016 Inactive naproxen 500 mg tablet RxNorm: 087985 Tablet(s) PO TID No Start Date 07/04/2015 Inactive Medication Administered Medication Codes Instruc tions Start Date Status Kenalog 40 mg/mL suspension for injection RxNorm: 1301147 Milliliter 10/03/2018 No longer Active Kenalog 40 mg/mL suspension for injection RxNorm: 8350274 1Milliliter 08/25/2018 N o longer Active Kenalog 40 mg/mL suspension for injection RxNorm: 8926366 1Milliliter 06/16/2018 N o longer Active Kenalog 40 mg/mL suspension for injection RxNorm: 1030651 Milliliter 07/25/2016 No longer Active Immunizations Vaccine Codes Date Status Pneumococcal CVX: 33 09/2014 completed Assessments Condition Codes Effectiv e Dates Gastro-esophageal reflux disease without esophagitis ICD-10: K21.9 ICD-9: 530.81 02/23/2019 Essential (primary) hypertension ICD -10: I10 ICD-9: 401.1 02/23/2019 Mixed hyperlipidemia ICD-10: E78.2 ICD-9: 272.2 02/23/2019 Impaired fasting glucose ICD-10: R73 .01 [...] Reason For Visit Effective Dates Notes hypertension 02/23/2019 sinus congestion 10/03/2018 hypertension 08/25/2018 [...] 26.9 % 02/23/2019 Cbc With Differential Ord2 [place]% 6.9 % 02/23/2019 Cbc With Differential Ord2 [...] 1.32 K/ul 02/23/2019 Cbc With Differential Ord2 [place] ABS# 0.3 K/ul 02/23/2019 Cbc With Differential Ord2 Eos ABS# 0.0 K/ul 02/23/2019 Cbc With Differential Ord2 Baso ABS# 0.0 K/ul 02/23/2019 %Hba1C Pkf107 % HbA1c 03061-2 6.1 % 02/23/2019 %Hba1C Pfp822 Gluc Ave 128 mg/dL 02/23/2019 Lipid Ord30 CHOL 129 mg/dL 02/23/2019 Lipid Ord30 HDL 36.0 mg/dl 02/23/2019 Lipid Ord30 TRIG 133 mg/dL 02/23/2019 Lipid Ord30 LDL 66 mg/dL 02/23/2019 Lipid Ord30 C/HDL 3.6 Ratio 02/23/2019 Comp Metabolic Fxj516 NA 140 mEq/L 02/23/2019 Comp Metabolic Udm265 K 4.3 mEq/L 02/23/2019 Comp Metabolic Qat355 CL 104 mEq/L 02/23/2019 Comp Metabolic Ers458 CO2 28.0 mEq/L 02/23/2019 Comp Metabolic Tww352 AN ION GAP 12 02/23/2019 Comp Metabolic Pnz860 GL UCOSE 115 mg/dL 02/23/2019 Comp Metabolic Yen713 Cr eat 1.2 mg/dL 02/23/2019 Comp Metabolic Ytl014 eG FR 62 ml/min/1.73m2 02/23 Comp Metabolic Iio309 BUN 17 mg/dL 02/23/2019 Comp Metabolic Evw296 B/ C Ratio 14.0 Ratio 02/23/2019 Comp Metabolic Xbh267 CA LCIUM 9.2 mg/dL 02/23/2019 Comp Metabolic Brc698 AL K PHOS 80 U/L 02/23/2019 Comp Metabolic Rdy621 T(SGOT) 16 U/L 02/23/2019 Comp Metabolic Mio445 AL T(SGPT) 15 U/L 02/23/2019 Comp Metabolic Bcf799 BI LI T 1.0 mg/dL 02/23/2019 Comp Metabolic Xwa804 AL BUMIN 4.1 g/dL 02/23/2019 Comp Metabolic Yyv033 TP RO 6.5 g/dL 02/23/2019 Comp Metabolic Mul651 GL OB 2.4 g/dL 02/23/2019 Comp Metabolic Vph672 A/ G Ratio 1.7 Ratio 02/23/2019 Comp Metabolic Kio623 Os mo 282 mOsmo 02/23/2019 Total Psa [...] 30.1 pg 08/20/2018 Cbc With Differential Ord2 [place]% 8.0 % 08/20/2018 Cbc With Differential Ord2 [...] 1.41 K/ul 08/20/2018 Cbc With Differential Ord2 [place] ABS# 0.4 K/ul 08/20/2018 Cbc With Differential Ord2 Eos ABS# 0.1 K/ul 08/20/2018 Cbc With Differential Ord2 Baso ABS# 0.0 K/ul 08/20/2018 Tsh Ord6 TSH (3rd IS) 2.07 uIU/mL 08/20/2018 %Hba1C Esm687 % HbA1c 78011-8 6.0 % 08/20/2018 %Hba1C Oza883 Gluc Ave 126 mg/dL 08/20/2018 Comp Metabolic Ndr805 NA 142 mEq/L 08/20/2018 Comp Metabolic Icd864 K 4.2 mEq/L 08/20/2018 Comp Metabolic Iab641 CL 105 mEq/L 08/20/2018 Comp Metabolic Ndc464 CO2 30.0 mEq/L 08/20/2018 Comp Metabolic Ifz957 AN ION GAP 11 08/20/2018 Comp Metabolic Jth273 GL UCOSE 132 mg/dL 08/20/2018 Comp Metabolic Utw983 Cr eat 1.3 mg/dL 08/20/2018 Comp Metabolic Njs008 eG FR 58 ml/min/1.73m2 08/20 Comp Metabolic Hkj052 BUN 19 mg/dL 08/20/2018 Comp Metabolic Kad255 B/ C Ratio 14.8 Ratio 08/20/2018 Comp Metabolic Ogc279 CA LCIUM 9.2 mg/dL 08/20/2018 Comp Metabolic Vdw362 AL K PHOS 72 U/L 08/20/2018 Comp Metabolic Ufb150 T(SGOT) 21 U/L 08/20/2018 Comp Metabolic Uhl185 AL T(SGPT) 20 U/L 08/20/2018 Comp Metabolic Dst946 BI LI T 1.1 mg/dL 08/20/2018 Comp Metabolic Wxp241 AL BUMIN 4.3 g/dL 08/20/2018 Comp Metabolic Nas610 TP RO 6.6 g/dL 08/20/2018 Comp Metabolic Bmx676 GL OB 2.3 g/dL 08/20/2018 Comp Metabolic Fgz347 A/ G Ratio 1.9 Ratio 08/20/2018 Comp Metabolic Jfo393 Os mo 287 mOsmo 08/20/2018 %Hba1C Omi890 % HbA1c 13719-3 5.9 % 11/20/2017 %Hba1C Nfk331 Gluc Ave 123 mg/dL 11/20/2017 B12 Wzm298 B12 1130.00 pg/ml 11/19/2017 Total Psa Ord10 [...] 29.2 pg 11/19/2017 Cbc With Differential Ord2 [place]% 8.6 % 11/19/2017 Cbc With Differential Ord2 [...] 1.37 K/ul 11/19/2017 Cbc With Differential Ord2 [place] ABS# 0.4 K/ul 11/19/2017 Cbc With Differential Ord2 Eos ABS# 0.0 K/ul 11/19/2017 Cbc With Differential Ord2 Baso ABS# 0.0 K/ul 11/19/2017 Comp Metabolic Qko160 NA 142 mEq/L 11/19/2017 Comp Metabolic Sav781 K 4.3 mEq/L 11/19/2017 Comp Metabolic Xxl801 CL 104 mEq/L 11/19/2017 Comp Metabolic Qaw904 CO2 29.0 mEq/L 11/19/2017 Comp Metabolic Pcl689 AN ION GAP 13 11/19/2017 Comp Metabolic Ltz807 GL UCOSE 132 mg/dL 11/19/2017 Comp Metabolic Axs597 Cr eat 1.2 mg/dL 11/19/2017 Comp Metabolic Rkt546 eG FR 63 ml/min/1.73m2 11/19 Comp Metabolic Rxw798 BUN 20 mg/dL 11/19/2017 Comp Metabolic Knr869 B/ C Ratio 16.8 Ratio 11/19/2017 Comp Metabolic Trq844 CA LCIUM 9.3 mg/dL 11/19/2017 Comp Metabolic Egc900 AL K PHOS 74 U/L 11/19/2017 Comp Metabolic Vew534 T(SGOT) 15 U/L 11/19/2017 Comp Metabolic Hfs085 AL T(SGPT) 15 U/L 11/19/2017 Comp Metabolic Abm172 BI LI T 0.9 mg/dL 11/19/2017 Comp Metabolic Qas545 AL BUMIN 4.3 g/dL 11/19/2017 Comp Metabolic Lvt171 TP RO 6.6 g/dL 11/19/2017 Comp Metabolic Yzo385 GL OB 2.3 g/dL 11/19/2017 Comp Metabolic Tzz819 A/ G Ratio 1.9 Ratio 11/19/2017 Comp Metabolic Uur954 Os mo 288 mOsmo 11/19/2017 Tsh Ord6 [...] 30.2 pg 11/16/2016 Cbc With Differential Ord2 [place]% 10.2 % 11/16/2016 Cbc With Differential Ord2 [...] 1.46 K/ul 11/16/2016 Cbc With Differential Ord2 [place] ABS# 0.5 K/ul 11/16/2016 Cbc With Differential Ord2 Eos ABS# 0.1 K/ul 11/16/2016 Cbc With Differential Ord2 Baso ABS# 0.0 K/ul 11/16/2016 Comp Metabolic Qjs862 NA 141 mEq/L 11/16/2016 Comp Metabolic Lig634 K 4.2 mEq/L 11/16/2016 Comp Metabolic Xgp585 CL 106 mEq/L 11/16/2016 Comp Metabolic Jod341 CO2 30.0 mEq/L 11/16/2016 Comp Metabolic Guk910 AN ION GAP 9 11/16/2016 Comp Metabolic Cik465 GL UCOSE 118 mg/dL 11/16/2016 Comp Metabolic Wyb107 Cr eat 1.2 mg/dL 11/16/2016 Comp Metabolic Scz679 eG FR 61 ml/min/1.73m2 11/16 Comp Metabolic Boh571 BUN 22 mg/dL 11/16/2016 Comp Metabolic Gsv486 B/ C Ratio 17.7 Ratio 11/16/2016 Comp Metabolic Cxx566 CA LCIUM 9.2 mg/dL 11/16/2016 Comp Metabolic Chi136 AL K PHOS 91 U/L 11/16/2016 Comp Metabolic Wvf860 T(SGOT) 16 U/L 11/16/2016 Comp Metabolic Qjn769 AL T(SGPT) 16 U/L 11/16/2016 Comp Metabolic Puy119 BI LI T 0.9 mg/dL 11/16/2016 Comp Metabolic Dms849 AL BUMIN 4.1 g/dL 11/16/2016 Comp Metabolic Vfr033 TP RO 6.4 g/dL 11/16/2016 Comp Metabolic Sha877 GL OB 2.3 g/dL 11/16/2016 Comp Metabolic Uqe096 A/ G Ratio 1.8 Ratio 11/16/2016 Comp Metabolic Esd867 Os mo 286 mOsmo 11/16/2016 Lipid Ord30 [...] 1.8 mg/dL 08/01/2015 B Type Natriuretic Peptide Nxb2767 B-DIGITAL SOLUTION ARCHITECT 13.10 pg/ml 08/01/2015 Lipid Ord30 CHOL 188 [...] Ord2 RDW 14.7 % 08/01/2015 Comp Metabolic Iva564 NA 138 mEq/L 08/01/2015 Comp Metabolic Gyk493 K 4.2 mEq/L 08/01/2015 Comp Metabolic Cst373 CL 104 mEq/L 08/01/2015 Comp Metabolic Enc087 CO2 27.0 mEq/L 08/01/2015 Comp Metabolic Lnv910 AN ION GAP 11 08/01/2015 Comp Metabolic Crh734 GL UCOSE 118 mg/dL 08/01/2015 Comp Metabolic Jsi114 Cr eat 1.2 mg/dL 08/01/2015 Comp Metabolic Tmu245 eG FR 66 ml/min/1.73m2 08/01 Comp Metabolic Iqz088 BUN 19 mg/dL 08/01/2015 Comp Metabolic Exy768 B/ C Ratio 16.4 Ratio 08/01/2015 Comp Metabolic Wlo436 CA LCIUM 8.7 mg/dL 08/01/2015 Comp Metabolic Oil733 AL K PHOS 85 U/L 08/01/2015 Comp Metabolic Ynx405 T(SGOT) 16 U/L 08/01/2015 Comp Metabolic Xsn341 AL T(SGPT) 20 U/L 08/01/2015 Comp Metabolic Zri326 BI LI T 0.7 mg/dL 08/01/2015 Comp Metabolic Mxb341 AL BUMIN 3.9 g/dL 08/01/2015 Comp Metabolic Nqc573 TP RO 6.2 g/dL 08/01/2015 Comp Metabolic Ipt048 GL OB 2.4 g/dL 08/01/2015 Comp Metabolic Qcp905 A/ G Ratio 1.6 Ratio 08/01/2015 Comp Metabolic Gqw848 Os mo 279 mOsmo 08/01/2015 Tsh Ord6 hTSH II 1.79 uIU/mL 08/01/2015 Sed Rate Ord21 ESR 1 mm/hr 08/01/2015 Tsh Ord6 hTSH II 2.43 uIU/mL 07/07/2015 Folate Ord36 Folate 7.62 ng/mL 07/07/2015 B12 Lap251 B12 228.00 pg/ml 07/07/2015 Review of Systems System Result Effective Dates Constitutional recent illness 02/23/2019 Constitutional No chills [...] pain 11/14/2016 Neurologic No syncope Psychiatric anxiety 04/2017 Psychiatric depression 0 11/14/2016 Constitutional recent [...] Location: face 02/23/2019 on 3 on left gnosticism, 2 on right gnosticism and 1 each on dorsum of hands [...] Location: face 08/25/2018 on 3 on left gnosticism, 2 on right gnosticism and 1 each on dorsum of hands [...] lips 11/04/2017 None Full Exam - General 1995 Ears/Nose/Throat lips/teeth/gingiva Overall: normal dentition 11/04/2017 None Full Exam - General 1995 [...] Location: face 11/04/2017 on 3 on left gnosticism, 2 on right gnosticism and 1 each on dorsum of hands [...] clear 12/04/2016 None Full Exam - General 1995 Ears/Nose/Throat lips/teeth/gingiva Overall: benign lips 12/04/2016 None [...] lips 11/14/2016 None Full Exam - General 1995 Ears/Nose/Throat lips/teeth/gingiva Overall: normal dentition 11/14/2016 None [...] CPT-4: J3301 08/25/2018 THER/PROPH/DIAG INJ SC/IM CPT-4: 56026 06/16/2018 TRIAMCINOLONE ACET I [place] NOS CPT-4: J3301 06/16/2018 PPPS, SUBSEQ VISIT CPT- 4: G0439 11/19/2017 DESTRUCT PREMALG LESION CPT-4: 16306 11/04/2017 DESTRUCT PREMALG LES 2-14 CPT-4: 30182 11/04/2017 PPPS, SUBSEQ VISIT CPT- 4: G0439 11/16/2016 THER/PROPH/DIAG INJ SC/IM CPT-4: 88837 07/25/2016 TRIAMCINOLONE ACET I [place] NOS CPT-4: J3301 07/25/2016 Vital Signs Date Vital 02/23/2019 Blood Pressure 1: 164/72 Code: 8480-6 BMI: 41.0 Code: 31567-2 Heart Rate 1: 46 bpm Height: 5'7" SpO2: 95% Weight: 262 lbs 10/03/2018 Blood Pressure 1: 134/74 Code: 8480-6 BMI: 40.1 Code: 35837-8 Heart Rate 1: 55 bpm Height: 5'7" SpO2: 97% Temperature: 36.7 (C ) / 98.1 (F) Weight: 256 lbs 08/25/2018 Blood Pressure 1: 128/68 Code: 8480-6 BMI: 39.8 Code: 90313-7 Heart Rate 1: 55 bpm Height: 5'7" SpO2: 97% Weight: 254 lbs 06/16/2018 Blood Pressure 1: 120/67 Code: 8480-6 BMI: 40.1 Code: 38882-2 Heart Rate 1: 83 bpm Height: 5'7" SpO2: 95% Weight: 256 lbs 04/24/2018 Blood Pressure 1: 134/76 Code: 8480-6 BMI: 39.3 Code: 73494-3 Heart Rate 1: 55 bpm Height: 5'7" SpO2: 95% Weight: 251 lbs 11/19/2017 Blood Pressure 1: 130/62 Code: 8480-6 BMI: 38.1 Code: 67501-7 Heart Rate 1: 73 bpm Height: 5'7" SpO2: 93% Waist Measure (cm): 99 cm Weight: 243 lbs 11/04/2017 Blood Pressure 1: 136/68 Code: 8480-6 BMI: 38.2 Code: 93991-2 Heart Rate 1: 61 bpm Height: 5'7" SpO2: 98% Weight: 244 lbs 10/07/2017 Blood Pressure 1: 150/70 Code: 8480-6 BMI: 39.5 Code: 42335-3 Heart Rate 1: 65 bpm Height: 5'7" SpO2: 97% Weight: 252 lbs 06/03/2017 Blood Pressure 1: 140/70 Code: 8480-6 BMI: 37.9 Code: 09510-9 Heart Rate 1: 66 bpm Height: 5'7" SpO2: 96% Weight: 242 lbs 03/19/2017 Blood Pressure 1: 136/82 Code: 8480-6 BMI: 38.8 Code: 70238-8 Heart Rate 1: 58 bpm Height: 5'7" SpO2: 94% Weight: 247 lbs 8 oz 01/21/2017 Blood Pressure 1: 136/74 Code: 8480-6 BMI: 39.1 Code: 03920-7 Heart Rate 1: 58 bpm Height: 5'7" SpO2: 97% Weight: 249 lbs 8 oz 12/04/2016 Blood Pressure 1: 136/72 Code: 8480-6 Heart Rate 1: 55 bpm Height: 5'7" SpO2: 99% Weight: 11/16/2016 Blood Pressure 1: 124/76 Code: 8480-6 BMI: 39.2 Code: 44239-9 Heart Rate 1: 62 bpm Height: 5'7" SpO2: 96% Waist Measure (cm): 104 cm Weight: 250 lbs 11/14/2016 Blood Pressure 1: 152/60 Code: 8480-6 BMI: 39.8 Code: 18224-1 Heart Rate 1: 63 bpm Height: 5'7" SpO2: 94% Weight: 254 lbs 09/17/2016 Blood Pressure 1: 138/70 Code: 8480-6 BMI: 40.3 Code: 83349-6 Heart Rate 1: 60 bpm Height: 5'7" SpO2: 96% Weight: 257 lbs 08/03/2016 Blood Pressure 1: 148/78 Code: 8480-6 BMI: 39.9 Code: 39716-9 Heart Rate 1: 50 bpm Height: 5'7" SpO2: 97% Weight: 255 lbs 07/25/2016 Blood Pressure 1: 130/68 Code: 8480-6 BMI: 39.9 Code: 26412-1 Heart Rate 1: 61 bpm Height: 5'7" SpO2: 95% Weight: 255 lbs 03/22/2016 Blood Pressure 1: 136/76 Code: 8480-6 BMI: 39.0 Code: 15252-4 Heart Rate 1: 60 bpm Height: 5'7" SpO2: 98% Weight: 249 lbs 01/12/2016 Blood Pressure 1: 146/76 Code: 8480-6 BMI: 37.8 Code: 60809-4 Heart Rate 1: 59 bpm Height: 5'7" SpO2: 98% Weight: 241 lbs 8 oz 10/13/2015 Blood Pressure 1: 136/72 Code: 8480-6 BMI: 37.6 Code: 45640-2 Heart Rate 1: 70 bpm Height: 5'7" SpO2: 99% Weight: 240 lbs 09/13/2015 Blood Pressure 1: 140/80 Code: 8480-6 BMI: 37.2 Code: 94695-4 Heart Rate 1: 64 bpm Height: 5'7" SpO2: 97% Weight: 237 lbs 8 oz 07/05/2015 Blood Pressure 1: 170/84 Code: 8480-6 Blood Pressure 1: 130/70 Code: 8480-6 BMI: 35.9 Code: 12970-3 Heart Rate 1: 67 bpm Height: 5'7" SpO2: 95% Weight: 229 lbs Functional Status No Functional Status data History of Present Illness Symptom Name Status Resu lt Effective Date Notes Quality chronic 02/23/2019 None Quality primary hypert [...] 11/19/2017 None Annual Medicare Wellness Exam Jamie ng Stress usually neha effectively 11/19/2017 None [...] Encounters Encounter Performer Loca tion Codes Date ([id number]) [id number] EST. P ATIENT, LEVEL IV Diagnosis: Essential (primary) hypertension[ICD10: I10] Diagnosis: Gastro-esophageal reflux disease without esophagitis[ICD10: K21.9] Diagnosis: Mixed hyperlipidemia[ICD10: E78.2] Diagnosis: Impaired fasting glucose[ICD10: R73.01] Kathy Espinosa MD, [facility] CPT-4: 73748 02/23/2019 ([id number]) [id number] EST. P ATIENT, LEVEL III Diagnosis: Cough[ICD10: R05] Diagnosis: Acute upper respiratory infection, unspecified[ICD10: J06.9] Amanda Espinosa MD, [facility] CPT-4: 88244 10/03/2018 ([id number]) [id number] EST. P ATIENT, LEVEL IV Diagnosis: Essential (primary) hypertension[ICD10: I10] Diagnosis: Mixed hyperlipidemia[ICD10: E78.2] Diagnosis: Other allergic rhinitis[ICD10: J30.89] Kathy Espinosa MD, [facility] CPT-4: 89614 08/25/2018 [id number] EST. PATIENT, LEVEL III Diagnosis: Other pruritus[ICD10: L29.8] Diagnosis: Allergic contact dermatitis due to plants, except food[ICD10: L23.7] Alba Espinosa MD, [facility] CPT-4: 09597 06/16/2018 ([id number]) [id number] EST. P ATIENT, LEVEL IV Diagnosis: Essential (primary) hypertension[ICD10: I10] Diagnosis: Allergic dermatitis of left upper eyelid[ICD10: H01.114] Diagnosis: Allergic rhinitis due to pollen[ICD10: J30.1] Kathy Espinosa MD, [facility] CPT-4: 60038 04/24/2018 ([id number]) [id number] EST. P ATIENT, LEVEL IV Diagnosis: Essential (primary) hypertension[ICD10: I10] Diagnosis: Mixed hyperlipidemia[ICD10: E78.2] Diagnosis: Actinic keratosis[ICD10: L57.0] Kathy Espinosa MD, [facility] CPT-4: 10053 11/04/2017 ([id number]) [id number] EST. P ATIENT, LEVEL IV Diagnosis: Essential (primary) hypertension[ICD10: I10] Diagnosis: Cervicalgia[ICD10: M54.2] Diagnosis: Myalgia[ICD10: M79.1] Kathy Espinosa MD, [facility] CPT-4: [address] 10/07/2017 ([id number]) 06747 EST. P ATIENT, LEVEL IV Diagnosis: Essential (primary) hypertension[ICD10: I10] Diagnosis: Major depressive disorder, recurrent, mild[ICD10: F33.0] Diagnosis: Generalized anxiety disorder[ICD10: F41.1] Kathy Espinosa MD, [facility] CPT-4: 40820 06/03/2017 ([id number]) 50505 EST. P ATIENT, LEVEL IV Diagnosis: Essential (primary) hypertension[ICD10: I10] Diagnosis: Mixed hyperlipidemia[ICD10: E78.2] Diagnosis: Low back pain[ICD10: M54.5] Kathy Espinosa MD, [facility] CPT-4: 79332 03/19/2017 ([id number]) 82968 EST. P ATIENT, LEVEL III Diagnosis: Pain in right lower leg[ICD10: M79.661] Diagnosis: Localized edema[ICD10: R60.0] Diagnosis: Contusion of right lower leg, initial encounter[ICD10: S80.11XA] Amanda Espinosa MD, [facility] CPT-4: 92450 01/21/2017 ([id number]) 70087 EST. P ATIENT, LEVEL IV Diagnosis: Mixed hyperlipidemia[ICD10: E78.2] Diagnosis: Major depressive disorder, recurrent, moderate[ICD10: F33.1] Kathy Espinosa MD, [facility] CPT-4: 28488 12/04/2016 ([id number]) 54948 EST. P ATIENT, LEVEL IV Diagnosis: Mixed hyperlipidemia[ICD10: E78.2] Diagnosis: Major depressive disorder, recurrent, mild[ICD10: F33.0] Diagnosis: Generalized anxiety disorder[ICD10: F41.1] Diagnosis: Essential (primary) hypertension[ICD10: I10] Diagnosis: Chronic obstructive pulmonary disease with (acute) exacerbation[ICD10: J44.1] Kathy Espinosa MD, [facility] CPT-4: 28315 11/14/2016 41961 EST. PATIENT, LEVEL III Diagnosis: Acute laryngopharyngitis[ICD10: J06.0] Diagnosis: Other allergic rhinitis[ICD10: J30.89] Alba Espinosa MD, [facility] CPT-4: 51851 09/17/2016 29764 EST. PATIENT, LEVEL III Diagnosis: Contusion of right lower leg, initial encounter[ICD10: S80.11XA] Alba Espinosa MD, [facility] CPT-4: 08205 08/03/2016 ([id number]) 02056 EST. P ATIENT, LEVEL IV Diagnosis: Essential (primary) hypertension[ICD10: I10] Diagnosis: Mixed hyperlipidemia[ICD10: E78.2] Diagnosis: Acute recurrent maxillary sinusitis[ICD10: J01.01] Diagnosis: Chronic obstructive pulmonary disease with (acute) exacerbation[ICD10: J44.1] Kathy Espinosa MD, [facility] CPT-4: 25854 07/25/2016 ([id number]) 26742 EST. P ATIENT, LEVEL IV Diagnosis: Essential (primary) hypertension[ICD10: I10] Diagnosis: Gastro-esophageal reflux disease without esophagitis[ICD10: K21.9] Diagnosis: Generalized anxiety disorder[ICD10: F41.1] Diagnosis: Major depressive disorder, recurrent, mild[ICD10: F33.0] Kathy Espinosa MD, [facility] CPT-4: 73587 03/22/2016 ([id number]) 25216 EST. P ATIENT, LEVEL IV Diagnosis: Essential (primary) hypertension[ICD10: I10] Diagnosis: Coronary angioplasty status[ICD10: Z98.61] Diagnosis: Hyperlipidemia, unspecified[ICD10: E78.5] Diagnosis: Major depressive disorder, recurrent, moderate[ICD10: F33.1] Kathy Espinosa MD, [facility] CPT-4: 77732 01/12/2016 ([id number]) 96290 EST. P ATIENT, LEVEL IV Diagnosis: Essential (primary) hypertension[ICD10: I10] Diagnosis: Gastro-esophageal reflux disease without esophagitis[ICD10: K21.9] Kathy Espinosa MD, [facility] CPT-4: 30598 10/13/2015 ([id number]) 29536 EST. P ATIENT, LEVEL IV Diagnosis: Gastro-esophageal reflux disease without esophagitis[ICD10: K21.9] Diagnosis: Essential (primary) hypertension[ICD10: I10] Diagnosis: Coronary angioplasty status[ICD10: Z98.61] Kathy Espinosa MD, C CPT-4: 69038 09/13/2015 ([id number]) [facility] - LEVEL 4 Diagnosis: Hyperlipidemia, unspecified[ICD10: E78.5] Diagnosis: Personal history of other diseases of the circulatory system[ICD10: Z86.79] Diagnosis: Unspecified osteoarthritis, unspecified site[ICD10: M19.90] Diagnosis: Polyneuropathy, unspecified[ICD10: G62.9] Kathy Espinosa MD, C CPT-4: 27461 07/05/2015 Plan of Care Planned Activity Notes C odes Status Date Appointment: Kathy Espinosa WPtel: [address] [place], [place] [id number] (15 min) Moderate 04/27/2019 Visit Plan: Hypertension [...] mile walks/rides. 02/23/2019 Appointment: Kathy Espinosa WPtel: [facility] (15 min) Moderate 02/23/2019 Patient Education: Patient Medication Summary Completed 02/23/2019 Patient Education: Cholesterol Management Completed 02/23/2019 Appointment: Amanda Romero WPtel: [address] [place], [place] [phone] (15 min) Moderate 02/06/2019 Visit Plan: URI - Pt advised to inc rease fluids, vitamin C. Discussed natural and expected course of this diagnosis and need to alert me if symptoms do not follow expected course, or if any worse. RX sent to patient's pharmacy. 10/03/2018 Appointment: Amanda Romero WPtel: [facility]5 [phone] (30 min) Complex 10/03/2018 Patient Education: [...] in clinic 08/25/2018 Appointment: Kathy Espinosa WPtel: [facility]8 [facility] (15 min) Moderate 08/25/2018 Patient Education: Patient [...] they worsen. 06/16/2018 Appointment: Alba Fajardo WPtel: [facility]3 [facility] (15 min) Moderate 06/16/2018 Patient Education: Patient Medication Summary Completed 06/16/2018 Patient Education: Poison Ashley Completed 06/16/2018 Appointment: Amanda Romero WPtel: [facility]0 [phone] [place] (15 min) Moderate 05/23/2018 Appointment: Kathy Espinosa WPtel: [facility]7 [facility] (15 min) Moderate 05/15/2018 Visit Plan: Hypertension [...] the office 04/24/2018 Appointment: [phone] [facility] [place] (15 min) Moderate 04/24/2018 Patient Education: Patient Medication Summary Completed 04/24/2018 Appointment: [facility] [phone] [facility] [place] (15 min) Moderate 02/25/2018 Appointment: [facility] [phone] [facility] [place] (15 min) Moderate 02/20/2018 Appointment: [facility] [phone] [facility] [place] (15 min) Moderate 02/13/2018 Patient Education: Patient [...] care surrogate. 11/19/2017 Appointment: Amanda [phone] [facility] - Annual Wellness Visit 11/19/2017 Patient Education: [...] - one lesion each hand and on gnosticism x 3 lesions and 2 lesions right gnosticism 11/04/2017 Appointment: Kathy [facility]spinosa [facility]Ptel[facility] [phone] [facility] (15 min) Moderate 11/04/2017 Patient Education: Patient [...] weeks. 10/07/2017 Appointment: [facility]el[facility] [phone] [facility] (15 min) Moderate 10/07/2017 Patient Education: Patient [...] flu shots 06/03/2017 Appointment: Kathy Espinosa WPtel: [phone] [facility] (15 min) Moderate 06/03/2017 Patient Education: Patient Medication Summary Completed 06/03/2017 Patient Education: Obesity Completed 06/03/2017 Appointment: Kathy Espinosa WPtel: [phone] [facility] (15 min) Moderate 05/22/2017 Visit Plan: Hypertension [...] of back 03/19/2017 Appointment: Kathy Espinosa WPtel: [phone] [facility] [place] (15 min) Moderate 03/19/2017 Patient Education: [...] doppler. 01/21/2017 Appointment: Amanda Romero [facility]Ptel[phone] (15 min) Moderate 01/21/2017 Patient Education: Patient [...] current medications. 12/04/2016 Appointment: [facility]el[facility] [phone] [facility] [place] (15 min) Moderate 12/04/2016 Patient Education: Patient [...] surrogate. 11/16/2016 Appointment: Alba Fajardo [facility]Ptel: [phone] [facility] [facility] - Annual Wellness Visit 11/16/2016 Patient [...] acute concerns. 11/14/2016 Appointment: Kathy Espinosa WPtel: [facility]5 [facility] (15 min) Moderate 11/14/2016 Patient Education: Patient Medication Summary Completed 11/14/2016 Patient Education: Obesity Completed 11/14/2016 Appointment: Kathy Espinosa WPtel: [facility]5 [facility] (15 min) Moderate 10/24/2016 Visit Plan: URI [...] or pain. 08/03/2016 Appointment: Amanda Romero WPtel: [address] [phone] (15 min) Moderate 08/03/2016 Patient Education: Patient [...] show improvement. 07/25/2016 Appointment: Kathy Espinosa WPtel: [phone] [facility] (15 min) Moderate 07/25/2016 Patient Education: Patient [...] current medications. 01/12/2016 Appointment: Kathy Espinosa WPtel: [address] [place], [place] [phone] (15 min) Moderate 01/12/2016 Patient Education: Patient Medication Summary Completed 01/12/2016 Patient Education: Obesity Completed 01/12/2016 Patient Education: Hypertension Completed 01/12/2016 Appointment: Kathy Espinosa WPtel: [address] [place], [place] [phone] (15 min) Moderate 12/01/2015 Visit Plan: Hypertension [...] not improving. 10/13/2015 Appointment: Kathy Espinosa WPtel: [facility]5 [facility] (15 min) Moderate 10/13/2015 [...] TWICE DAILY 09/13/2015 Appointment: Kathy Espinosa WPtel: [facility]5 [facility] (15 min) Moderate 09/13/2015 Patient Education: Patient Medication Summary Completed 09/13/2015 Patient Education: Hypertension Completed 09/13/2015 Appointment: Kathy Espinosa WPtel: [facility]5 [facility] (15 min) Moderate 08/09/2015 Visit Plan: Hyperlipidemia [...] and lipitor. 07/05/2015 Appointment: Kathy Espinosa WPtel: [facility]5 [facility] [place] New Patient 07/05/2015 Patient Education: Patient Medication Summary Completed 07/05/2015 Referral: Heber Almanza Referral Appointment Requested Referral: Heber Almanza Pt's informed that referral paperwork sent. If they do not hear anything back by next Mon/Tu to let me know. Completed Instructions Comment steroid shot today steroid pills that you [...] do not improve or if they worsen. . Medicare Exam - to day we [...] her DOPA paperwork for health care surrogate. milagros 180mg daily x 2 weeks zatador [...] in current medications. . Medicare Exam - to day we [...] her DOPA paperwork for health care surrogate. Qunol - or co-enzyme q10 - -take [...] lipitor start on crestor after two weeks. venous doppler right lower extremity . Contusion-right lower leg-improving bu t pain and swelling in right lower extremity has worsened-will obtain venous doppler to r/o DVT-continues ice, elevation, anti inflammatories as directed. Instructed patient and his we will call them with the results of the venous doppler. we will check a danielle min b12 [...] - continue with ASA, plavix and lipitor. . Hypertension - wel l controlled - [...] Call if symptoms do not show improvement. kenalog continue flonase twice daily . URI - Pt advised to increase fluids, v itamin C. Discussed natural and expected course of this diagnosis and need to alert me if symptoms do not follow expected course, or if any worse. RX sent to patient's pharmacy. . Hyperlipidemia - pt has been counseled [...] situational exposure. No change in current medications. start on buspirone - 5mg one [...] pt is to call for acute concerns. start walking or rid ing your bike [...] it up into two 1/2 mile walks/rides. decrease the pantopr azole to one time [...] office if the symptoms are not improving. we will send a refer ral to [facility] for physical therapy for your neck . [...] Pt does not take the flu shots probiotics - Culture lle, norton colon mitch, [...] spray in the nasal steroid allergy spray. - books about weigh t loss - [...] back pain - check xray of back cut the metoprolol x l (toprol xl) [...] cough Kenalog injection given today in clinic INCREASE THE PANTOPR AZOLE TO 40MG TWICE [...] TO 40MG TWICE DAILY . Hypertension - wel l controlled - [...] - one lesion each hand and on gnosticism x 3 lesions and 2 lesions right gnosticism . Hematoma, right lo wer leg, anterior - Pt is to monitor symptoms if they change or worsen pt is to notify clinic. Notify clinic with any redness, streaking, warmth, edema, shortness of breath or pain.
--- OUTSIDE RECORDS SUMMARY | 2020-04-12 22:12 | XMS REPORT | CCD ---
Author Author Joaquín Espinosa Organization [facility] Address [address] [place] [address] Phone Care Team Providers Care Scowman Name Role Phone PP Unavailable CCM Unavailable Summary Purpose Interface Exchange Insurance Providers Payer name Policy type / Coverage type Covered green party ID Effective Begin Date Effective End Date WPS Medicare Part B Medicare Part B [id number] Unknown Cigna Medicare Part B 36 [id number] Unknown Family history Grandfather Diagnosis Age At Onset lung cancer Unknown Runs in the family Diagnosis Age At Onset Cancer Unknown Grandfather Diagnosis Age At Onset Cancer Unknown Social History Social History Element Codes Description Effective Dates Marital status Unknown M arried Nitza 07/05/2015 Number of children Unknown 3 07/05/2015 Employment Unknown Retir ed 07/05/[address]: 8700045 Quit over 10 years ago 07/05/[address]: 915592 Currently drinks alcohol beer 07/05/2015 Allergies, Adverse [...] ICD-10: J30.1 Active 04/24/2018 Unknown Encounter for [facility] adult medical examination without abnormal findings ICD-9: [...] Date Stop Date Sta tus Fill Instructions escitalopram 20 mg t ablet RxNorm: 801004 TABLET(S) TAKE ONE & ONE-HALF TABLETS BY MOUTH IN THE EVENING 03/16/2019 No Stop Date Active furosemide 20 mg tablet RxNorm: 379606 1 TABLET(S) PO DAILY NEEDED 02/27/2019 03/18/2019 Ac tive Patient requests 90 days supply potassium chloride E R 10 mEq tablet,extended release RxNorm: 752907 1 TABLET(S) PO DAILY NEEDED 02/27/2019 06/26/2019 Active Patient requests 90 days s upply potassium chloride E R 10 mEq tablet,extended release RxNorm: 634256 1 Tablet(s) PO daily as needed 02/27/2019 02/26/2019 Inactive furosemide 20 mg tablet RxNorm: 122732 1 Tablet(s) PO daily as needed 02/27/2019 02/26/2019 In active potassium chloride E R 10 mEq tablet,extended release RxNorm: 113887 1 Tablet(s) PO daily as needed 02/27/2019 02/26/2019 Inactive naproxen 500 mg tablet RxNorm: 018532 1 TABLET(S) BID NEEDED FOR PAIN 01/26/2019 07/24/2019 Ac tive Crestor 10 mg tablet RxNorm: 126823 1 Tablet(s) PO every other day 11/03/2018 01/26/2020 Ac tive Zithromax Z-Ralph 250 mg tablet RxNorm: 804152 1 Tablet(s) PO UD 10/13/2018 10/12/2018 Inactive Zithromax Z-Ralph 250 mg tablet RxNorm: 580191 1 Tablet(s) PO UD 10/13/2018 10/17/2018 Inactive escitalopram 20 mg t ablet RxNorm: 361472 Tablet(s) TAKE ONE & ONE-HALF TABLETS BY MOUTH IN THE EVENING 10/07/2018 03/15/2019 Inactive Keflex 500 mg capsule RxNorm: 569457 1 Capsule(s) PO TID 10/03/2018 10/09/2018 Inactive Kenalog 40 mg/mL jenni pension for injection RxNorm: 4493464 Milliliter(s) Inj 10/03/2018 10/03/2018 In active pantoprazole 40 mg t ablet,delayed release RxNorm: 848085 1 Tablet(s) BID 09/24/2018 12/17/2019 Ac tive naproxen 500 mg tablet RxNorm: 455771 1 Tablet(s) BID as needed for pain 09/24/2018 01/25/2019 In active Kenalog 40 mg/mL jenni pension for injection RxNorm: 5415190 1 Milliliter(s) Inj 08/25/2018 08/25/2018 In active pantoprazole 40 mg t ablet,delayed release RxNorm: 326292 TAKE 1 TABLET BY MOUT H TWICE DAILY 06/24/2018 09/23/2018 Inactive betamethasone diprop ionate 0.05 % topical cream RxNorm: 539133 1 Application TOP BID as needed 06/16/2018 No Stop Date Active prednisone 20 mg tablet RxNorm: 677368 2 Tablet(s) PO daily 06/16/2018 06/20/2018 Inactive Kenalog 40 mg/mL jenni pension for injection RxNorm: 7507072 1 Milliliter(s) Inj 06/16/2018 06/16/2018 In active naproxen 500 mg tablet RxNorm: 484594 TAKE 1 TABLET BY MOUTH TWICE DAILY NE EDED FOR PAIN 05/13/2018 09/23/2018 Inactive naproxen 500 mg tablet RxNorm: 490454 TAKE ONE TABLET BY MOUTH TWICE DAILY NEEDED FOR PAIN 01/07/2018 05/12/2018 Inactive escitalopram 20 mg t ablet RxNorm: 439279 TAKE ONE & ONE-HALF T ABLETS BY MOUTH IN THE EVENING 12/16/2017 10/06/2018 Inactive pantoprazole 40 mg t ablet,delayed release RxNorm: 475145 1 Tablet(s) PO BID 11/21/2017 03/20/2018 In active Crestor 10 mg tablet RxNorm: 331385 1 Tablet(s) PO every other day 10/07/2017 11/02/2018 In active naproxen 500 mg tablet RxNorm: 296211 TAKE ONE TABLET BY MOUTH TWICE DAILY NEEDED FOR PAIN 06/27/2017 12/23/2017 Inactive escitalopram 20 mg t ablet RxNorm: 943798 1 Tablet(s) PO QPM 06/03/2017 05/28/2018 Inactive pantoprazole 40 mg t ablet,delayed release RxNorm: 368695 1 Tablet(s) PO BID 03/19/2017 05/07/2017 In active naproxen 500 mg tablet RxNorm: 912348 TAKE ONE TABLET BY MOUTH TWICE DAILY NEEDED FOR PAIN 02/11/2017 06/10/2017 Inactive naproxen 500 mg tablet RxNorm: 049361 TAKE ONE TABLET BY MOUTH TWICE DAILY NEEDED FOR PAIN 12/14/2016 02/10/2017 Inactive escitalopram 20 mg t ablet RxNorm: 868558 1.5 Tablet(s) PO QPM 12/04/2016 06/02/2017 Inactive buspirone 5 mg tablet RxNorm: 401570 1 Tablet(s) PO BID 11/14/2016 12/03/2016 Inactive amoxicillin 500 mg c apsule RxNorm: 098988 1 Capsule(s) PO TID 09/17/2016 09/26/2016 Inactive prednisone 20 mg tablet RxNorm: 533123 2 Tablet(s) PO daily 09/17/2016 09/21/2016 Inactive escitalopram 20 mg t ablet RxNorm: 959626 1 Tablet(s) PO QPM 08/28/2016 12/03/2016 Inactive naproxen 500 mg tablet RxNorm: 408228 TAKE ONE TABLET BY MOUTH TWICE DAILY NEEDED FOR PAIN 08/01/2016 11/28/2016 Inactive sulfamethoxazole 800 mg-trimethoprim 160 mg tablet RxNorm: 719493 1 Tablet(s) PO BID 07/25/2016 07/31/2016 Inactive Kenalog 40 mg/mL jenni pension for injection RxNorm: 1781667 Milliliter(s) Inj 07/25/2016 07/25/2016 In active Symbicort 80 mcg-4.5 mcg/actuation HFA aerosol inhaler RxNorm: 5580833 2 INH QHS 07/25/2016 09/11/2016 In active escitalopram 20 mg t ablet RxNorm: 160155 1 Tablet(s) PO QPM 03/22/2016 08/27/2016 Inactive alprazolam 0.5 mg di sintegrating tablet RxNorm: 177966 1 Tablet(s) PO TID as needed anxiety 03/22/2016 11/13/2016 Inactive atorvastatin 20 mg t ablet RxNorm: 572247 1 Tablet(s) PO daily 01/12/2016 10/06/2017 Inactive Lexapro 10 mg tablet RxNorm: 975092 1 Tablet(s) PO QPM 01/12/2016 03/21/2016 Inactive pantoprazole 40 mg t ablet,delayed release RxNorm: 433324 1 Tablet(s) PO daily 10/13/2015 11/11/2015 In active pantoprazole 40 mg t ablet,delayed release RxNorm: 884639 1 Tablet(s) PO BID 09/13/2015 10/12/2015 In active naproxen 500 mg tablet RxNorm: 741450 Tablet(s) PO BID as needed for pain 07/05/2015 07/31/2016 In active folic acid 400 mcg t ablet RxNorm: 790414 1 Tablet(s) PO daily No Start Date Active Vitamin B12 500 mcg RxNorm: 2000 Microgram(s) PO daily No Start Date Active Toprol XL 50 mg tabl et,extended release RxNorm: 246108 1 Tablet(s) PO daily No Start Date Active Tudorza Pressair 400 mcg/actuation breath activated RxNorm: 7640849 1 INH QAM No Start Date Active aspirin 81 mg capsul e,delayed release RxNorm: 716866 1 Capsule(s) PO daily No Start Date Active Incruse Ellipta 62.5 mcg/actuation powder for inhalation RxNorm: 4135953 1 INH daily No Start Date Active clopidogrel 75 mg ta blet RxNorm: 131753 1 Tablet(s) PO daily No Start Date Active Symbicort 80 mcg-4.5 mcg/actuation HFA aerosol inhaler RxNorm: 5230522 2 INH QHS No Start Date 07/24/2016 Inactive pantoprazole 40 mg t ablet,delayed release RxNorm: 051975 1 Tablet(s) PO daily No Start Date 09/12/2015 Inactive atorvastatin 40 mg t ablet RxNorm: 559010 1 Tablet(s) PO daily No Start Date 01/11/2016 Inactive furosemide 20 mg tablet RxNorm: 326345 1 Tablet(s) PO daily No Start Date 09/11/2016 Inactive naproxen 500 mg tablet RxNorm: 526908 Tablet(s) PO TID No Start Date 07/04/2015 Inactive Medication Administered Medication Codes Instruc tions Start Date Status Kenalog 40 mg/mL suspension for injection RxNorm: 4193160 Milliliter 10/03/2018 No longer Active Kenalog 40 mg/mL suspension for injection RxNorm: 7960325 1Milliliter 08/25/2018 N o longer Active Kenalog 40 mg/mL suspension for injection RxNorm: 5234165 1Milliliter 06/16/2018 N o longer Active Kenalog 40 mg/mL suspension for injection RxNorm: 5264916 Milliliter 07/25/2016 No longer Active Immunizations Vaccine Codes Date Status Pneumococcal CVX: 33 09/2014 completed Assessments Condition Codes Effectiv e Dates Impaired fasting glucose ICD-10: R73 .01 ICD-9: 790.21 02/23/2019 Mixed hyperlipidemia ICD-10: E78.2 ICD-9: 272.2 02/23/2019 Essential (primary) hypertension ICD -10: I10 ICD-9: 401.1 02/23/2019 Gastro-esophageal reflux disease without esophagitis ICD-10: K21.9 ICD-9: 530.81 02/23/2019 Acute upper respiratory infection, unspecified ICD-10: J06.9 ICD-9: 465.9 10/03/2018 Cough ICD-10: R05 ICD-9: 786.2 10/03/2018 Other allergic rhinitis ICD-10: J30. 89 [...] recurrent, mild ICD-10: F33.0 ICD-9: 296.31 06/03/2017 Generalized anxiety disorder ICD-10: F41.1 ICD-9: 300.02 06/03/2017 Low back pain ICD-10: M54.5 ICD-9: 724.2 03/19/2017 Localized edema ICD-10: R60.0 ICD-9: 782.3 01/21/2017 Contusion of right lower leg, initial encounter ICD-10: S80.11XA ICD-9: 924.5 01/21/2017 Pain in right lower leg ICD-10: M79. 661 ICD-9: 729.5 01/21/2017 Major depressive disorder, recurrent, moderate ICD-10: [...] 26.9 % 02/23/2019 Cbc With Differential Ord2 Lyon% 6.9 % 02/23/2019 Cbc With Differential Ord2 [...] 1.32 K/ul 02/23/2019 Cbc With Differential Ord2 Lyon ABS# 0.3 K/ul 02/23/2019 Cbc With Differential Ord2 Eos ABS# 0.0 K/ul 02/23/2019 Cbc With Differential Ord2 Baso ABS# 0.0 K/ul 02/23/2019 %Hba1C Rjg890 % HbA1c 30046-6 6.1 % 02/23/2019 %Hba1C Quj120 Gluc Ave 128 mg/dL 02/23/2019 Lipid Ord30 CHOL 129 mg/dL 02/23/2019 Lipid Ord30 HDL 36.0 mg/dl 02/23/2019 Lipid Ord30 TRIG 133 mg/dL 02/23/2019 Lipid Ord30 LDL 66 mg/dL 02/23/2019 Lipid Ord30 C/HDL 3.6 Ratio 02/23/2019 Comp Metabolic Eru837 NA 140 mEq/L 02/23/2019 Comp Metabolic Bdv965 K 4.3 mEq/L 02/23/2019 Comp Metabolic Kpg550 CL 104 mEq/L 02/23/2019 Comp Metabolic Bew620 CO2 28.0 mEq/L 02/23/2019 Comp Metabolic Jwm769 AN ION GAP 12 02/23/2019 Comp Metabolic Scb472 GL UCOSE 115 mg/dL 02/23/2019 Comp Metabolic Kmz832 Cr eat 1.2 mg/dL 02/23/2019 Comp Metabolic Fjf945 eG FR 62 ml/min/1.73m2 02/23 Comp Metabolic Zen924 BUN 17 mg/dL 02/23/2019 Comp Metabolic Jpg676 B/ C Ratio 14.0 Ratio 02/23/2019 Comp Metabolic Igz514 CA LCIUM 9.2 mg/dL 02/23/2019 Comp Metabolic Ljx734 AL K PHOS 80 U/L 02/23/2019 Comp Metabolic Jfg182 T(SGOT) 16 U/L 02/23/2019 Comp Metabolic Vjs132 AL T(SGPT) 15 U/L 02/23/2019 Comp Metabolic Jki814 BI LI T 1.0 mg/dL 02/23/2019 Comp Metabolic Aiu112 AL BUMIN 4.1 g/dL 02/23/2019 Comp Metabolic Pok422 TP RO 6.5 g/dL 02/23/2019 Comp Metabolic Wib498 GL OB 2.4 g/dL 02/23/2019 Comp Metabolic Vgk266 A/ G Ratio 1.7 Ratio 02/23/2019 Comp Metabolic Jtv350 Os mo 282 mOsmo 02/23/2019 Total Psa [...] 30.1 pg 08/20/2018 Cbc With Differential Ord2 Lyon% 8.0 % 08/20/2018 Cbc With Differential Ord2 [...] 1.41 K/ul 08/20/2018 Cbc With Differential Ord2 Lyon ABS# 0.4 K/ul 08/20/2018 Cbc With Differential Ord2 Eos ABS# 0.1 K/ul 08/20/2018 Cbc With Differential Ord2 Baso ABS# 0.0 K/ul 08/20/2018 Tsh Ord6 TSH (3rd IS) 2.07 uIU/mL 08/20/2018 %Hba1C Hmy924 % HbA1c 43301-7 6.0 % 08/20/2018 %Hba1C Onu711 Gluc Ave 126 mg/dL 08/20/2018 Comp Metabolic Baa465 NA 142 mEq/L 08/20/2018 Comp Metabolic Grf308 K 4.2 mEq/L 08/20/2018 Comp Metabolic Low799 CL 105 mEq/L 08/20/2018 Comp Metabolic Mng454 CO2 30.0 mEq/L 08/20/2018 Comp Metabolic Yvc057 AN ION GAP 11 08/20/2018 Comp Metabolic Zzm256 GL UCOSE 132 mg/dL 08/20/2018 Comp Metabolic Vfg164 Cr eat 1.3 mg/dL 08/20/2018 Comp Metabolic Myt040 eG FR 58 ml/min/1.73m2 08/20 Comp Metabolic Tea222 BUN 19 mg/dL 08/20/2018 Comp Metabolic Nhg467 B/ C Ratio 14.8 Ratio 08/20/2018 Comp Metabolic Buq922 CA LCIUM 9.2 mg/dL 08/20/2018 Comp Metabolic Ila687 AL K PHOS 72 U/L 08/20/2018 Comp Metabolic Mem567 T(SGOT) 21 U/L 08/20/2018 Comp Metabolic Fyy573 AL T(SGPT) 20 U/L 08/20/2018 Comp Metabolic Lpg302 BI LI T 1.1 mg/dL 08/20/2018 Comp Metabolic Riu077 AL BUMIN 4.3 g/dL 08/20/2018 Comp Metabolic Wro018 TP RO 6.6 g/dL 08/20/2018 Comp Metabolic Kbg386 GL OB 2.3 g/dL 08/20/2018 Comp Metabolic Hbo187 A/ G Ratio 1.9 Ratio 08/20/2018 Comp Metabolic Ujf367 Os mo 287 mOsmo 08/20/2018 %Hba1C Mxw979 % HbA1c 78118-8 5.9 % 11/20/2017 %Hba1C Ixt193 Gluc Ave 123 mg/dL 11/20/2017 B12 Chg588 B12 1130.00 pg/ml 11/19/2017 Total Psa Ord10 [...] 29.2 pg 11/19/2017 Cbc With Differential Ord2 Lyon% 8.6 % 11/19/2017 Cbc With Differential Ord2 MCHC 33.6 pg 11/19/2017 Cbc With Differential Ord2 Eos% 0.8 % 11/19/2017 Cbc With Differential Ord2 Baso% 0.4 % 11/19/2017 Cbc With Differential Ord2 PLT 159 K/ul 11/19/2017 Cbc With Differential Ord2 RDW 13.3 % 11/19/2017 Cbc With Differential Ord2 Neut ABS# 3.06 K/ul 11/19/2017 Cbc With Differential Ord2 Lymph ABS# 1.37 K/ul 11/19/2017 Cbc With Differential Ord2 Lyon ABS# 0.4 K/ul 11/19/2017 Cbc With Differential Ord2 Eos ABS# 0.0 K/ul 11/19/2017 Cbc With Differential Ord2 Baso ABS# 0.0 K/ul 11/19/2017 Comp Metabolic Cer737 NA 142 mEq/L 11/19/2017 Comp Metabolic Mnt494 K 4.3 mEq/L 11/19/2017 Comp Metabolic Kyl702 CL 104 mEq/L 11/19/2017 Comp Metabolic Nhr097 CO2 29.0 mEq/L 11/19/2017 Comp Metabolic Waq397 AN ION GAP 13 11/19/2017 Comp Metabolic Csp837 GL UCOSE 132 mg/dL 11/19/2017 Comp Metabolic Doa319 Cr eat 1.2 mg/dL 11/19/2017 Comp Metabolic Vvn015 eG FR 63 ml/min/1.73m2 11/19 Comp Metabolic Hmm440 BUN 20 mg/dL 11/19/2017 Comp Metabolic Qrb336 B/ C Ratio 16.8 Ratio 11/19/2017 Comp Metabolic Vta444 CA LCIUM 9.3 mg/dL 11/19/2017 Comp Metabolic Txg855 AL K PHOS 74 U/L 11/19/2017 Comp Metabolic Rns760 T(SGOT) 15 U/L 11/19/2017 Comp Metabolic Tuw279 AL T(SGPT) 15 U/L 11/19/2017 Comp Metabolic Bpw653 BI LI T 0.9 mg/dL 11/19/2017 Comp Metabolic Cie443 AL BUMIN 4.3 g/dL 11/19/2017 Comp Metabolic Mjp601 TP RO 6.6 g/dL 11/19/2017 Comp Metabolic Bmr308 GL OB 2.3 g/dL 11/19/2017 Comp Metabolic Ozt375 A/ G Ratio 1.9 Ratio 11/19/2017 Comp Metabolic Kwm662 Os mo 288 mOsmo 11/19/2017 Tsh Ord6 [...] 30.2 pg 11/16/2016 Cbc With Differential Ord2 Lyon% 10.2 % 11/16/2016 Cbc With Differential Ord2 Eos% 1.5 % 11/16/2016 Cbc With Differential Ord2 MCHC 33.6 pg 11/16/2016 Cbc With Differential Ord2 PLT 150 K/ul 11/16/2016 Cbc With Differential Ord2 Baso% 0.4 % 11/16/2016 Cbc With Differential Ord2 Neut ABS# 2.76 K/ul 11/16/2016 Cbc With Differential Ord2 RDW 13.5 % 11/16/2016 Cbc With Differential Ord2 Lymph ABS# 1.46 K/ul 11/16/2016 Cbc With Differential Ord2 Lyon ABS# 0.5 K/ul 11/16/2016 Cbc With Differential Ord2 Eos ABS# 0.1 K/ul 11/16/2016 Cbc With Differential Ord2 Baso ABS# 0.0 K/ul 11/16/2016 Comp Metabolic Oep540 NA 141 mEq/L 11/16/2016 Comp Metabolic Zfn083 K 4.2 mEq/L 11/16/2016 Comp Metabolic Yiv382 CL 106 mEq/L 11/16/2016 Comp Metabolic Xpz897 CO2 30.0 mEq/L 11/16/2016 Comp Metabolic Bwg687 AN ION GAP 9 11/16/2016 Comp Metabolic Dzo640 GL UCOSE 118 mg/dL 11/16/2016 Comp Metabolic Qqj940 Cr eat 1.2 mg/dL 11/16/2016 Comp Metabolic Ita924 eG FR 61 ml/min/1.73m2 11/16 Comp Metabolic Cij263 BUN 22 mg/dL 11/16/2016 Comp Metabolic Pse910 B/ C Ratio 17.7 Ratio 11/16/2016 Comp Metabolic Atj721 CA LCIUM 9.2 mg/dL 11/16/2016 Comp Metabolic Jee816 AL K PHOS 91 U/L 11/16/2016 Comp Metabolic Xkq852 T(SGOT) 16 U/L 11/16/2016 Comp Metabolic Xgw729 AL T(SGPT) 16 U/L 11/16/2016 Comp Metabolic Cnh464 BI LI T 0.9 mg/dL 11/16/2016 Comp Metabolic Zft728 AL BUMIN 4.1 g/dL 11/16/2016 Comp Metabolic Tpk895 TP RO 6.4 g/dL 11/16/2016 Comp Metabolic Ftj698 GL OB 2.3 g/dL 11/16/2016 Comp Metabolic Wqi631 A/ G Ratio 1.8 Ratio 11/16/2016 Comp Metabolic Vuf238 Os mo 286 mOsmo 11/16/2016 Lipid Ord30 [...] 1.8 mg/dL 08/01/2015 B Type Natriuretic Peptide Eoh9875 B-[employer] 13.10 pg/ml 08/01/2015 Lipid Ord30 CHOL 188 [...] Ord2 RDW 14.7 % 08/01/2015 Comp Metabolic Spe742 NA 138 mEq/L 08/01/2015 Comp Metabolic Eyt407 K 4.2 mEq/L 08/01/2015 Comp Metabolic Xhb541 CL 104 mEq/L 08/01/2015 Comp Metabolic Tkm958 CO2 27.0 mEq/L 08/01/2015 Comp Metabolic Ztg636 AN ION GAP 11 08/01/2015 Comp Metabolic Upy534 GL UCOSE 118 mg/dL 08/01/2015 Comp Metabolic Fdw093 Cr eat 1.2 mg/dL 08/01/2015 Comp Metabolic Ndh821 eG FR 66 ml/min/1.73m2 08/01 Comp Metabolic Ouf305 BUN 19 mg/dL 08/01/2015 Comp Metabolic Vri440 B/ C Ratio 16.4 Ratio 08/01/2015 Comp Metabolic Szi621 CA LCIUM 8.7 mg/dL 08/01/2015 Comp Metabolic Cql389 AL K PHOS 85 U/L 08/01/2015 Comp Metabolic Zbr006 T(SGOT) 16 U/L 08/01/2015 Comp Metabolic Qgv078 AL T(SGPT) 20 U/L 08/01/2015 Comp Metabolic Jcp458 BI LI T 0.7 mg/dL 08/01/2015 Comp Metabolic Awi160 AL BUMIN 3.9 g/dL 08/01/2015 Comp Metabolic Ple695 TP RO 6.2 g/dL 08/01/2015 Comp Metabolic Cpp158 GL OB 2.4 g/dL 08/01/2015 Comp Metabolic Zzz457 A/ G Ratio 1.6 Ratio 08/01/2015 Comp Metabolic Peq021 Os mo 279 mOsmo 08/01/2015 Tsh Ord6 hTSH II 1.79 uIU/mL 08/01/2015 Sed Rate Ord21 ESR 1 mm/hr 08/01/2015 Tsh Ord6 hTSH II 2.43 uIU/mL 07/07/2015 Folate Ord36 Folate 7.62 ng/mL 07/07/2015 B12 Srw639 B12 228.00 pg/ml 07/07/2015 Review of Systems [...] Location: face 02/23/2019 on 3 on left islam, 2 on right islam and 1 each on dorsum of hands [...] Location: face 08/25/2018 on 3 on left islam, 2 on right islam and 1 each on dorsum of hands [...] Location: face 11/04/2017 on 3 on left islam, 2 on right islam and 1 each on dorsum of hands [...] CPT-4: J3301 08/25/2018 THER/PROPH/DIAG INJ SC/IM CPT-4: 53399 06/16/2018 TRIAMCINOLONE ACET I [place] NOS CPT-4: J3301 06/16/2018 PPPS, SUBSEQ VISIT CPT- 4: G0439 11/19/2017 DESTRUCT PREMALG LESION CPT-4: 13496 11/04/2017 DESTRUCT PREMALG LES 2-14 CPT-4: 70260 11/04/2017 PPPS, SUBSEQ VISIT CPT- 4: G0439 11/16/2016 THER/PROPH/DIAG INJ SC/IM CPT-4: 03160 07/25/2016 TRIAMCINOLONE ACET I [place] NOS CPT-4: J3301 07/25/2016 Vital Signs Date Vital 02/23/2019 Blood Pressure 1: 164/72 Code: 8480-6 BMI: 41.0 Code: 18165-7 Heart Rate 1: 46 bpm Height: 5'7" SpO2: 95% Weight: 262 lbs 10/03/2018 Blood Pressure 1: 134/74 Code: 8480-6 BMI: 40.1 Code: 74970-1 Heart Rate 1: 55 bpm Height: 5'7" SpO2: 97% Temperature: 36.7 (C ) / 98.1 (F) Weight: 256 lbs 08/25/2018 Blood Pressure 1: 128/68 Code: 8480-6 BMI: 39.8 Code: 22018-5 Heart Rate 1: 55 bpm Height: 5'7" SpO2: 97% Weight: 254 lbs 06/16/2018 Blood Pressure 1: 120/67 Code: 8480-6 BMI: 40.1 Code: 96639-2 Heart Rate 1: 83 bpm Height: 5'7" SpO2: 95% Weight: 256 lbs 04/24/2018 Blood Pressure 1: 134/76 Code: 8480-6 BMI: 39.3 Code: 62672-7 Heart Rate 1: 55 bpm Height: 5'7" SpO2: 95% Weight: 251 lbs 11/19/2017 Blood Pressure 1: 130/62 Code: 8480-6 BMI: 38.1 Code: 62851-8 Heart Rate 1: 73 bpm Height: 5'7" SpO2: 93% Waist Measure (cm): 99 cm Weight: 243 lbs 11/04/2017 Blood Pressure 1: 136/68 Code: 8480-6 BMI: 38.2 Code: 88049-6 Heart Rate 1: 61 bpm Height: 5'7" SpO2: 98% Weight: 244 lbs 10/07/2017 Blood Pressure 1: 150/70 Code: 8480-6 BMI: 39.5 Code: 14816-8 Heart Rate 1: 65 bpm Height: 5'7" SpO2: 97% Weight: 252 lbs 06/03/2017 Blood Pressure 1: 140/70 Code: 8480-6 BMI: 37.9 Code: 13657-8 Heart Rate 1: 66 bpm Height: 5'7" SpO2: 96% Weight: 242 lbs 03/19/2017 Blood Pressure 1: 136/82 Code: 8480-6 BMI: 38.8 Code: 74725-9 Heart Rate 1: 58 bpm Height: 5'7" SpO2: 94% Weight: 247 lbs 8 oz 01/21/2017 Blood Pressure 1: 136/74 Code: 8480-6 BMI: 39.1 Code: 19490-1 Heart Rate 1: 58 bpm Height: 5'7" SpO2: 97% Weight: 249 lbs 8 oz 12/04/2016 Blood Pressure 1: 136/72 Code: 8480-6 Heart Rate 1: 55 bpm Height: 5'7" SpO2: 99% Weight: 11/16/2016 Blood Pressure 1: 124/76 Code: 8480-6 BMI: 39.2 Code: 00811-2 Heart Rate 1: 62 bpm Height: 5'7" SpO2: 96% Waist Measure (cm): 104 cm Weight: 250 lbs 11/14/2016 Blood Pressure 1: 152/60 Code: 8480-6 BMI: 39.8 Code: 98277-6 Heart Rate 1: 63 bpm Height: 5'7" SpO2: 94% Weight: 254 lbs 09/17/2016 Blood Pressure 1: 138/70 Code: 8480-6 BMI: 40.3 Code: 43717-4 Heart Rate 1: 60 bpm Height: 5'7" SpO2: 96% Weight: 257 lbs 08/03/2016 Blood Pressure 1: 148/78 Code: 8480-6 BMI: 39.9 Code: 33992-9 Heart Rate 1: 50 bpm Height: 5'7" SpO2: 97% Weight: 255 lbs 07/25/2016 Blood Pressure 1: 130/68 Code: 8480-6 BMI: 39.9 Code: 79110-6 Heart Rate 1: 61 bpm Height: 5'7" SpO2: 95% Weight: 255 lbs 03/22/2016 Blood Pressure 1: 136/76 Code: 8480-6 BMI: 39.0 Code: 67414-0 Heart Rate 1: 60 bpm Height: 5'7" SpO2: 98% Weight: 249 lbs 01/12/2016 Blood Pressure 1: 146/76 Code: 8480-6 BMI: 37.8 Code: 44794-2 Heart Rate 1: 59 bpm Height: 5'7" SpO2: 98% Weight: 241 lbs 8 oz 10/13/2015 Blood Pressure 1: 136/72 Code: 8480-6 BMI: 37.6 Code: 32052-9 Heart Rate 1: 70 bpm Height: 5'7" SpO2: 99% Weight: 240 lbs 09/13/2015 Blood Pressure 1: 140/80 Code: 8480-6 BMI: 37.2 Code: 04105-0 Heart Rate 1: 64 bpm Height: 5'7" SpO2: 97% Weight: 237 lbs 8 oz 07/05/2015 Blood Pressure 1: 170/84 Code: 8480-6 Blood Pressure 1: 130/70 Code: 8480-6 BMI: 35.9 Code: 05642-4 Heart Rate 1: 67 bpm Height: 5'7" [...] outdoors: y 11/19/2017 None hypertension Quality richard wood hypertension 11/04/2017 None hypertension Onset and Resolution [...] Denies lightheadedness 06/03/2017 None hypertension Quality richard nina hypertension 06/03/2017 None chest pain/pressure Quality pressure [...] Encounters Encounter Performer Loca tion Codes Date ([id number]) [id number] EST. P ATIENT, LEVEL IV Diagnosis: Essential (primary) hypertension[ICD10: I10] Diagnosis: Gastro-esophageal reflux disease without esophagitis[ICD10: K21.9] Diagnosis: Mixed hyperlipidemia[ICD10: E78.2] Diagnosis: Impaired fasting glucose[ICD10: R73.01] Kathy Espinosa MD, [facility] CPT-4: 29952 02/23/2019 ([id number]) [id number] EST. P ATIENT, LEVEL III Diagnosis: Cough[ICD10: R05] Diagnosis: Acute upper respiratory infection, unspecified[ICD10: J06.9] Amanda Espinosa MD, [facility] CPT-4: 79169 10/03/2018 ([id number]) 85042 EST. P ATIENT, LEVEL IV Diagnosis: Essential (primary) hypertension[ICD10: I10] Diagnosis: Mixed hyperlipidemia[ICD10: E78.2] Diagnosis: Other allergic rhinitis[ICD10: J30.89] Kathy Espinosa MD, [facility] CPT-4: 16930 08/25/2018 [id number] EST. PATIENT, LEVEL III Diagnosis: Other pruritus[ICD10: L29.8] Diagnosis: Allergic contact dermatitis due to plants, except food[ICD10: L23.7] Alba Espinosa MD, [facility] CPT-4: 49895 06/16/2018 ([id number]) [id number] EST. P ATIENT, LEVEL IV Diagnosis: Essential (primary) hypertension[ICD10: I10] Diagnosis: Allergic dermatitis of left upper eyelid[ICD10: H01.114] Diagnosis: Allergic rhinitis due to pollen[ICD10: J30.1] Kathy Espinosa MD, [facility] CPT-4: 43829 04/24/2018 ([id number]) 95501 EST. P ATIENT, LEVEL IV Diagnosis: Essential (primary) hypertension[ICD10: I10] Diagnosis: Mixed hyperlipidemia[ICD10: E78.2] Diagnosis: Actinic keratosis[ICD10: L57.0] Kathy Espinosa MD, [facility] CPT-4: 30077 11/04/2017 ([id number]) 19406 EST. P ATIENT, LEVEL IV Diagnosis: Essential (primary) hypertension[ICD10: I10] Diagnosis: Cervicalgia[ICD10: M54.2] Diagnosis: Myalgia[ICD10: M79.1] Kathy Espinosa MD, [facility] CPT-4: 30194 10/07/2017 ([id number]) 97446 EST. P ATIENT, LEVEL IV Diagnosis: Essential (primary) hypertension[ICD10: I10] Diagnosis: Major depressive disorder, recurrent, mild[ICD10: F33.0] Diagnosis: Generalized anxiety disorder[ICD10: F41.1] Kathy Espinosa MD, [facility] CPT-4: 42422 06/03/2017 ([id number]) 67437 EST. P ATIENT, LEVEL IV Diagnosis: Essential (primary) hypertension[ICD10: I10] Diagnosis: Mixed hyperlipidemia[ICD10: E78.2] Diagnosis: Low back pain[ICD10: M54.5] Kathy Espinosa MD, [facility] CPT-4: 85869 03/19/2017 ([id number]) 88774 EST. P ATIENT, LEVEL III Diagnosis: Pain in right lower leg[ICD10: M79.661] Diagnosis: Localized edema[ICD10: R60.0] Diagnosis: Contusion of right lower leg, initial encounter[ICD10: S80.11XA] Amanda Espinosa MD, [facility] CPT-4: 22202 01/21/2017 ([id number]) 46760 EST. P ATIENT, LEVEL IV Diagnosis: Mixed hyperlipidemia[ICD10: E78.2] Diagnosis: Major depressive disorder, recurrent, moderate[ICD10: F33.1] Kathy Espinosa MD, [facility] CPT-4: 15741 12/04/2016 ([id number]) 78370 EST. P ATIENT, LEVEL IV Diagnosis: Mixed hyperlipidemia[ICD10: E78.2] Diagnosis: Major depressive disorder, recurrent, mild[ICD10: F33.0] Diagnosis: Generalized anxiety disorder[ICD10: F41.1] Diagnosis: Essential (primary) hypertension[ICD10: I10] Diagnosis: Chronic obstructive pulmonary disease with (acute) exacerbation[ICD10: J44.1] Kathy Espinosa MD, [facility] CPT-4: 02826 11/14/2016 91660 EST. PATIENT, LEVEL III Diagnosis: Acute laryngopharyngitis[ICD10: J06.0] Diagnosis: Other allergic rhinitis[ICD10: J30.89] Alba Espinosa MD, [facility] CPT-4: 06211 09/17/2016 79073 EST. PATIENT, LEVEL III Diagnosis: Contusion of right lower leg, initial encounter[ICD10: S80.11XA] Alba Espinosa MD, [facility] CPT-4: 72363 08/03/2016 ([id number]) 64434 EST. P ATIENT, LEVEL IV Diagnosis: Essential (primary) hypertension[ICD10: I10] Diagnosis: Mixed hyperlipidemia[ICD10: E78.2] Diagnosis: Acute recurrent maxillary sinusitis[ICD10: J01.01] Diagnosis: Chronic obstructive pulmonary disease with (acute) exacerbation[ICD10: J44.1] Kathy Espinosa MD, [facility] CPT-4: 60495 07/25/2016 ([id number]) 82350 EST. P ATIENT, LEVEL IV Diagnosis: Essential (primary) hypertension[ICD10: I10] Diagnosis: Gastro-esophageal reflux disease without esophagitis[ICD10: K21.9] Diagnosis: Generalized anxiety disorder[ICD10: F41.1] Diagnosis: Major depressive disorder, recurrent, mild[ICD10: F33.0] Kathy Espinosa MD, [facility] CPT-4: 14666 03/22/2016 ([id number]) 72588 EST. P ATIENT, LEVEL IV Diagnosis: Essential (primary) hypertension[ICD10: I10] Diagnosis: Coronary angioplasty status[ICD10: Z98.61] Diagnosis: Hyperlipidemia, unspecified[ICD10: E78.5] Diagnosis: Major depressive disorder, recurrent, moderate[ICD10: F33.1] Kathy Espinosa MD, [facility] CPT-4: 01169 01/12/2016 ([id number]) 22463 EST. P ATIENT, LEVEL IV Diagnosis: Essential (primary) hypertension[ICD10: I10] Diagnosis: Gastro-esophageal reflux disease without esophagitis[ICD10: K21.9] Kathy Espinosa MD, [facility] CPT-4: 69960 10/13/2015 ([id number]) 66026 EST. [facility]: Gastro-esophageal reflux disease without esophagitis[ICD10: K21.9] Diagnosis: Essential (primary) hypertension[ICD10: I10] Diagnosis: Coronary angioplasty status[ICD10: Z98.61] Kathy Espinosa MD, [facility] CPT-4: 04073 09/13/2015 ([id number]) OFFICE VISI T, NEW - LEVEL 4 Diagnosis: Hyperlipidemia, unspecified[ICD10: E78.5] Diagnosis: Personal history of other diseases of the circulatory system[ICD10: Z86.79] Diagnosis: Unspecified osteoarthritis, unspecified site[ICD10: M19.90] Diagnosis: Polyneuropathy, unspecified[ICD10: G62.9] Kathy Espinosa MD, [facility] CPT-4: 96896 07/05/2015 Plan of Care Planned Activity Notes [...] mile walks/rides. 02/23/2019 Appointment: Kathy Espinosa WPtel: [address] [place], [place] [phone] (15 min) Moderate 02/23/2019 Patient Education: Patient Medication Summary Completed 02/23/2019 Patient Education: Cholesterol Management Completed 02/23/2019 Appointment: Amanda Romero WPtel: [phone] [phone] (15 min) Moderate 02/06/2019 Visit Plan: URI - Pt advised to inc rease fluids, vitamin C. Discussed natural and expected course of this diagnosis and need to alert me if symptoms do not follow expected course, or if any worse. RX sent to patient's pharmacy. 10/03/2018 Appointment: Amanda Romero WPtel: [phone] [phone] (30 min) Complex 10/03/2018 Patient Education: Patient [...] clinic 08/25/2018 Appointment: Kathy Espinosa WPtel: [phone] [facility] (15 min) Moderate 08/25/2018 Patient Education: [...] they worsen. 06/16/2018 Appointment[phone] [facility] ([facility] min) Moderate 06/16/2018 Patient Education: Patient Medication Summary Completed 06/16/2018 Patient Education: Poison Ashley Completed 06/16/2018 Appointment: Amanda Romero WPtel: [phone] [phone] [place] (15 min) Moderate 05/23/2018 Appointment: Kathy Espinosa WPtel: [phone] [facility] [place] (15 min) Moderate 05/15/2018 Visit Plan: [...] office 04/24/2018 Appointment: [phone] [facility] [place] (15 min) Moderate 04/24/2018 Patient Education: Patient Medication Summary Completed 04/24/2018 Appointment: [facility]el[phone] [facility] [place] (15 min) Moderate 02/25/2018 Appointment: Kathy Espinosa WPtel: [phone] [facility] [place] (15 min) Moderate 02/20/2018 Appointment: Kathy Espinosa WPtel: [phone] [facility] [place] (15 min) Moderate 02/13/2018 Patient Education: [...] care surrogate. 11/19/2017 Appointment: Amanda Romero WPtel: [address] [place], [place] [phone] [facility] - Annual Wellness Visit 11/19/2017 [...] - one lesion each hand and on islam x 3 lesions and 2 lesions right islam 11/04/2017 Appointment: Kathy Espinosa WPtel: [facility] (15 min) Moderate 11/04/2017 Patient Education: [...] two weeks. 10/07/2017 Appointment: Kathy Espinosa WPtel: [address] [place], [place] [phone] (15 min) Moderate 10/07/2017 Patient Education: Patient [...] flu shots 06/03/2017 Appointment: Kathy Espinosa WPtel: [facility] [place] (15 min) Moderate 06/03/2017 Patient Education: Patient Medication Summary Completed 06/03/2017 Patient Education: Obesity Completed 06/03/2017 Appointment: Kathy Espinosa WPtel: [facility] (15 min) Moderate 05/22/2017 Visit Plan: [...] of back 03/19/2017 Appointment: Kathy Espinosa WPtel: [phone] [facility] (15 min) Moderate 03/19/2017 Patient Education: [...] venous doppler. 01/21/2017 Appointment: Amanda Romero WPtel: [phone] [phone] [place] (15 min) Moderate 01/21/2017 Patient Education: [...] No change in current medications. 12/04/2016 [place] [phone] [facility] (15 min) Moderate 12/04/2016 Patient Education: [...] surrogate. 11/16/2016 Appointment: Alba Fajardo [facility]Ptel[phone] [facility] [facility] - Annual Wellness Visit 11/16/2016 [...] concerns. 11/14/2016 Appointment: Kathy Espinosa WPtel: [phone] [facility] (15 min) Moderate 11/14/2016 Patient Education: Patient Medication Summary Completed 11/14/2016 Patient Education: Obesity Completed 11/14/2016 Appointment: Kathy Espinosa WPtel: [phone] [facility] (15 min) Moderate 10/24/2016 Visit Plan: URI [...] pain. 08/03/2016 Appointment: Amanda Romero WPtel: [phone] [phone] [place] (15 min) Moderate 08/03/2016 Patient Education: [...] show improvement. 07/25/2016 Appointment: Kathy Espinosa WPtel: [address] [place], [place] [address] (15 min) Moderate 07/25/2016 Patient Education: Patient [...] current medications. 01/12/2016 Appointment: Kathy Espinosa WPtel: [facility] [address] (15 min) Moderate 01/12/2016 Patient Education: Patient Medication Summary Completed 01/12/2016 Patient Education: Obesity Completed 01/12/2016 Patient Education: Hypertension Completed 01/12/2016 Appointment: Kathy Espinosa WPtel: [facility] [address] (15 min) Moderate 12/01/2015 Visit Plan: Hypertension [...] not improving. 10/13/2015 Appointment: Kathy Espinosa WPtel: [facility] [address] (15 min) Moderate 10/13/2015 Patient Education: Patient [...] TWICE DAILY 09/13/2015 Appointment: Kathy Espinosa WPtel: [facility] (15 min) Moderate 09/13/2015 Patient Education: Patient Medication Summary Completed 09/13/2015 Patient Education: Hypertension Completed 09/13/2015 Appointment: Kathy Espinosa WPtel: [facility] (15 min) Moderate 08/09/2015 Visit Plan: [...] and lipitor. 07/05/2015 Appointment: Kathy Espinosa WPtel: [facility] New Patient 07/05/2015 Patient Education: Patient Medication Summary Completed 07/05/2015 Referral: Heber Almanza Referral Appointment Requested Referral: Heber Almanza Pt's informed that referral paperwork sent. If they do not hear anything back by next Mon/Tues to let me know. Completed Instructions Comment . Hypertension - wel l controlled - [...] Call if symptoms do not show improvement. . Medicare Exam - to day we [...] her DOPA paperwork for health care surrogate. kenalog continue flonase twice daily . URI [...] we will send a refer ral to [facility] for physical therapy for your neck [...] Pt does not take the flu shots steroid shot today steroid pills that you [...] do not improve or if they worsen. probiotics - Culture lle, norton colon mitch, [...] continue with ASA, plavix and lipitor. . Hematoma, right lo wer leg, anterior [...] - one lesion each hand and on islam x 3 lesions and 2 lesions right islam
[2020-04-12] MEDS ORDERED: RX-TRAMADOL 50 MG (ULTRAM) TAB PPK#4 PO STA (22:14)
--- OUTSIDE RECORDS SUMMARY | 2020-04-12 22:14 | XMS REPORT | CCD ---
Author Author Joaquín Espinosa Organization [facility] Address [address] [place] [address] Phone Care Team Providers Care Pre Press Proofer Name Role Phone PP Unavailable CCM Unavailable Summary Purpose Interface Exchange Insurance Providers Payer name Policy type / Coverage type Covered alliance party ID Effective Begin Date Effective End Date WPS Medicare Part B Medicare Part B [id number] Unknown Cigna Medicare Part B [id number] Unknown Family history Grandfather Diagnosis Age At Onset lung cancer Unknown Runs in the family Diagnosis Age At Onset Cancer Unknown Grandfather Diagnosis Age At Onset Cancer Unknown Social History Social History Element Codes Description Effective Dates Marital status Unknown M arried Nitza 07/05/2015 Number of children Unknown 3 07/05/2015 Employment Unknown Retir ed 07/05/[address]: 1588182 Quit over 10 years ago 07/05/[address]: 728127 Currently drinks alcohol beer 07/05/2015 Allergies, Adverse [...] ICD-10: J30.1 Active 04/24/2018 Unknown Encounter for [facility] adult medical examination without abnormal findings ICD-9: [...] Date Stop Date Sta tus Fill Instructions furosemide 20 mg tablet RxNorm: 566544 1 TABLET(S) PO DAILY NEEDED 02/27/2019 03/18/2019 Ac tive Patient requests 90 days supply potassium chloride E R 10 mEq tablet,extended release RxNorm: 350131 1 TABLET(S) PO DAILY NEEDED 02/27/2019 06/26/2019 Active Patient requests 90 days s upply potassium chloride E R 10 mEq tablet,extended release RxNorm: 280304 1 Tablet(s) PO daily as needed 02/27/2019 02/26/2019 Inactive furosemide 20 mg tablet RxNorm: 973538 1 Tablet(s) PO daily as needed 02/27/2019 02/26/2019 In active potassium chloride E R 10 mEq tablet,extended release RxNorm: 617386 1 Tablet(s) PO daily as needed 02/27/2019 02/26/2019 Inactive naproxen 500 mg tablet RxNorm: 561416 1 TABLET(S) BID NEEDED FOR PAIN 01/26/2019 07/24/2019 Ac tive Crestor 10 mg tablet RxNorm: 048744 1 Tablet(s) PO every other day 11/03/2018 01/26/2020 Ac tive Zithromax Z-Ralph 250 mg tablet RxNorm: 755063 1 Tablet(s) PO UD 10/13/2018 10/12/2018 Inactive Zithromax Z-Ralph 250 mg tablet RxNorm: 438652 1 Tablet(s) PO UD 10/13/2018 10/17/2018 Inactive escitalopram 20 mg t ablet RxNorm: 334188 Tablet(s) TAKE ONE & ONE-HALF TABLETS BY MOUTH IN THE EVENING 10/07/2018 No Stop Date Active Keflex 500 mg capsule RxNorm: 932047 1 Capsule(s) PO TID 10/03/2018 10/09/2018 Inactive Kenalog 40 mg/mL jenni pension for injection RxNorm: 5129527 Milliliter(s) Inj 10/03/2018 10/03/2018 In active pantoprazole 40 mg t ablet,delayed release RxNorm: 762504 1 Tablet(s) BID 09/24/2018 12/17/2019 Ac tive naproxen 500 mg tablet RxNorm: 898613 1 Tablet(s) BID as needed for pain 09/24/2018 01/25/2019 In active Kenalog 40 mg/mL jenni pension for injection RxNorm: 6628883 1 Milliliter(s) Inj 08/25/2018 08/25/2018 In active pantoprazole 40 mg t ablet,delayed release RxNorm: 674912 TAKE 1 TABLET BY MOUT H TWICE DAILY 06/24/2018 09/23/2018 Inactive betamethasone diprop ionate 0.05 % topical cream RxNorm: 647951 1 Application TOP BID as needed 06/16/2018 No Stop Date Active prednisone 20 mg tablet RxNorm: 312069 2 Tablet(s) PO daily 06/16/2018 06/20/2018 Inactive Kenalog 40 mg/mL jenni pension for injection RxNorm: 8309954 1 Milliliter(s) Inj 06/16/2018 06/16/2018 In active naproxen 500 mg tablet RxNorm: 624884 TAKE 1 TABLET BY MOUTH TWICE DAILY NE EDED FOR PAIN 05/13/2018 09/23/2018 Inactive naproxen 500 mg tablet RxNorm: 438388 TAKE ONE TABLET BY MOUTH TWICE DAILY NEEDED FOR PAIN 01/07/2018 05/12/2018 Inactive escitalopram 20 mg t ablet RxNorm: 282669 TAKE ONE & ONE-HALF T ABLETS BY MOUTH IN THE EVENING 12/16/2017 10/06/2018 Inactive pantoprazole 40 mg t ablet,delayed release RxNorm: 180280 1 Tablet(s) PO BID 11/21/2017 03/20/2018 In active Crestor 10 mg tablet RxNorm: 426731 1 Tablet(s) PO every other day 10/07/2017 11/02/2018 In active naproxen 500 mg tablet RxNorm: 026902 TAKE ONE TABLET BY MOUTH TWICE DAILY NEEDED FOR PAIN 06/27/2017 12/23/2017 Inactive escitalopram 20 mg t ablet RxNorm: 903773 1 Tablet(s) PO QPM 06/03/2017 05/28/2018 Inactive pantoprazole 40 mg t ablet,delayed release RxNorm: 868668 1 Tablet(s) PO BID 03/19/2017 05/07/2017 In active naproxen 500 mg tablet RxNorm: 348879 TAKE ONE TABLET BY MOUTH TWICE DAILY NEEDED FOR PAIN 02/11/2017 06/10/2017 Inactive naproxen 500 mg tablet RxNorm: 401327 TAKE ONE TABLET BY MOUTH TWICE DAILY NEEDED FOR PAIN 12/14/2016 02/10/2017 Inactive escitalopram 20 mg t ablet RxNorm: 410960 1.5 Tablet(s) PO QPM 12/04/2016 06/02/2017 Inactive buspirone 5 mg tablet RxNorm: 536492 1 Tablet(s) PO BID 11/14/2016 12/03/2016 Inactive amoxicillin 500 mg c apsule RxNorm: 477759 1 Capsule(s) PO TID 09/17/2016 09/26/2016 Inactive prednisone 20 mg tablet RxNorm: 787970 2 Tablet(s) PO daily 09/17/2016 09/21/2016 Inactive escitalopram 20 mg t ablet RxNorm: 162366 1 Tablet(s) PO QPM 08/28/2016 12/03/2016 Inactive naproxen 500 mg tablet RxNorm: 169074 TAKE ONE TABLET BY MOUTH TWICE DAILY NEEDED FOR PAIN 08/01/2016 11/28/2016 Inactive sulfamethoxazole 800 mg-trimethoprim 160 mg tablet RxNorm: 933647 1 Tablet(s) PO BID 07/25/2016 07/31/2016 Inactive Kenalog 40 mg/mL jenni pension for injection RxNorm: 9334641 Milliliter(s) Inj 07/25/2016 07/25/2016 In active Symbicort 80 mcg-4.5 mcg/actuation HFA aerosol inhaler RxNorm: 3744121 2 INH QHS 07/25/2016 09/11/2016 In active escitalopram 20 mg t ablet RxNorm: 877268 1 Tablet(s) PO QPM 03/22/2016 08/27/2016 Inactive alprazolam 0.5 mg di sintegrating tablet RxNorm: 070860 1 Tablet(s) PO TID as needed anxiety 03/22/2016 11/13/2016 Inactive atorvastatin 20 mg t ablet RxNorm: 592935 1 Tablet(s) PO daily 01/12/2016 10/06/2017 Inactive Lexapro 10 mg tablet RxNorm: 684655 1 Tablet(s) PO QPM 01/12/2016 03/21/2016 Inactive pantoprazole 40 mg t ablet,delayed release RxNorm: 199957 1 Tablet(s) PO daily 10/13/2015 11/11/2015 In active pantoprazole 40 mg t ablet,delayed release RxNorm: 796515 1 Tablet(s) PO BID 09/13/2015 10/12/2015 In active naproxen 500 mg tablet RxNorm: 274514 Tablet(s) PO BID as needed for pain 07/05/2015 07/31/2016 In active folic acid 400 mcg t ablet RxNorm: 823728 1 Tablet(s) PO daily No Start Date Active Vitamin B12 500 mcg RxNorm: 2000 Microgram(s) PO daily No Start Date Active Toprol XL 50 mg tabl et,extended release RxNorm: 986631 1 Tablet(s) PO daily No Start Date Active Tudorza Pressair 400 mcg/actuation breath activated RxNorm: 7029643 1 INH QAM No Start Date Active aspirin 81 mg capsul e,delayed release RxNorm: 453209 1 Capsule(s) PO daily No Start Date Active Incruse Ellipta 62.5 mcg/actuation powder for inhalation RxNorm: 1355938 1 INH daily No Start Date Active clopidogrel 75 mg ta blet RxNorm: 142146 1 Tablet(s) PO daily No Start Date Active Symbicort 80 mcg-4.5 mcg/actuation HFA aerosol inhaler RxNorm: 5676619 2 INH QHS No Start Date 07/24/2016 Inactive pantoprazole 40 mg t ablet,delayed release RxNorm: 317122 1 Tablet(s) PO daily No Start Date 09/12/2015 Inactive atorvastatin 40 mg t ablet RxNorm: 285670 1 Tablet(s) PO daily No Start Date 01/11/2016 Inactive furosemide 20 mg tablet RxNorm: 646510 1 Tablet(s) PO daily No Start Date 09/11/2016 Inactive naproxen 500 mg tablet RxNorm: 420707 Tablet(s) PO TID No Start Date 07/04/2015 Inactive Medication Administered Medication Codes Instruc tions Start Date Status Kenalog 40 mg/mL suspension for injection RxNorm: 7976309 Milliliter 10/03/2018 No longer Active Kenalog 40 mg/mL suspension for injection RxNorm: 9589199 1Milliliter 08/25/2018 N o longer Active Kenalog 40 mg/mL suspension for injection RxNorm: 2550854 1Milliliter 06/16/2018 N o longer Active Kenalog 40 mg/mL suspension for injection RxNorm: 5878883 Milliliter 07/25/2016 No longer Active Immunizations Vaccine [...] 26.9 % 02/23/2019 Cbc With Differential Ord2 MCH 29.4 pg 02/23/2019 Cbc With Differential Ord2 Ellis% 6.9 % 02/23/2019 Cbc With Differential Ord2 MCHC 33.1 pg 02/23/2019 Cbc With Differential Ord2 Eos% 0.8 % 02/23/2019 Cbc With Differential Ord2 PLT 159 K/ul 02/23/2019 Cbc With Differential Ord2 Baso% 0.4 % 02/23/2019 Cbc With Differential Ord2 RDW 13.2 % 02/23/2019 Cbc With Differential Ord2 Neut ABS# 3.19 K/ul 02/23/2019 Cbc With Differential Ord2 Lymph ABS# 1.32 K/ul 02/23/2019 Cbc With Differential Ord2 Ellis ABS# 0.3 K/ul 02/23/2019 Cbc With Differential Ord2 Eos ABS# 0.0 K/ul 02/23/2019 Cbc With Differential Ord2 Baso ABS# 0.0 K/ul 02/23/2019 %Hba1C Cjc407 % HbA1c 87950-2 6.1 % 02/23/2019 %Hba1C Uka908 Gluc Ave 128 mg/dL 02/23/2019 Lipid Ord30 CHOL 129 mg/dL 02/23/2019 Lipid Ord30 HDL 36.0 mg/dl 02/23/2019 Lipid Ord30 TRIG 133 mg/dL 02/23/2019 Lipid Ord30 LDL 66 mg/dL 02/23/2019 Lipid Ord30 C/HDL 3.6 Ratio 02/23/2019 Comp Metabolic Alz413 NA 140 mEq/L 02/23/2019 Comp Metabolic Kgv100 K 4.3 mEq/L 02/23/2019 Comp Metabolic Bvq771 CL 104 mEq/L 02/23/2019 Comp Metabolic Dnk356 CO2 28.0 mEq/L 02/23/2019 Comp Metabolic Oyv191 AN ION GAP 12 02/23/2019 Comp Metabolic Opq641 GL UCOSE 115 mg/dL 02/23/2019 Comp Metabolic Mvp795 Cr eat 1.2 mg/dL 02/23/2019 Comp Metabolic Kwv241 eG FR 62 ml/min/1.73m2 02/23 Comp Metabolic Kld875 BUN 17 mg/dL 02/23/2019 Comp Metabolic Iol293 B/ C Ratio 14.0 Ratio 02/23/2019 Comp Metabolic Xxj884 CA LCIUM 9.2 mg/dL 02/23/2019 Comp Metabolic Igd324 AL K PHOS 80 U/L 02/23/2019 Comp Metabolic Dcd900 T(SGOT) 16 U/L 02/23/2019 Comp Metabolic Uzd586 AL T(SGPT) 15 U/L 02/23/2019 Comp Metabolic Kvv315 BI LI T 1.0 mg/dL 02/23/2019 Comp Metabolic Kpo292 AL BUMIN 4.1 g/dL 02/23/2019 Comp Metabolic Xzo730 TP RO 6.5 g/dL 02/23/2019 Comp Metabolic Mjl378 GL OB 2.4 g/dL 02/23/2019 Comp Metabolic Xti701 A/ G Ratio 1.7 Ratio 02/23/2019 Comp Metabolic Uvp778 Os mo 282 mOsmo 02/23/2019 Total Psa [...] 30.1 pg 08/20/2018 Cbc With Differential Ord2 Ellis% 8.0 % 08/20/2018 Cbc With Differential Ord2 [...] 1.41 K/ul 08/20/2018 Cbc With Differential Ord2 Ellis ABS# 0.4 K/ul 08/20/2018 Cbc With Differential Ord2 Eos ABS# 0.1 K/ul 08/20/2018 Cbc With Differential Ord2 Baso ABS# 0.0 K/ul 08/20/2018 Tsh Ord6 TSH (3rd IS) 2.07 uIU/mL 08/20/2018 %Hba1C Kpy665 % HbA1c 20937-1 6.0 % 08/20/2018 %Hba1C Zbs551 Gluc Ave 126 mg/dL 08/20/2018 Comp Metabolic Rld153 NA 142 mEq/L 08/20/2018 Comp Metabolic Veo040 K 4.2 mEq/L 08/20/2018 Comp Metabolic Qmf910 CL 105 mEq/L 08/20/2018 Comp Metabolic Fuu567 CO2 30.0 mEq/L 08/20/2018 Comp Metabolic Eii305 AN ION GAP 11 08/20/2018 Comp Metabolic Stc601 GL UCOSE 132 mg/dL 08/20/2018 Comp Metabolic Nia550 Cr eat 1.3 mg/dL 08/20/2018 Comp Metabolic Zqg856 eG FR 58 ml/min/1.73m2 08/20 Comp Metabolic Dke378 BUN 19 mg/dL 08/20/2018 Comp Metabolic Zbv023 B/ C Ratio 14.8 Ratio 08/20/2018 Comp Metabolic Oep510 CA LCIUM 9.2 mg/dL 08/20/2018 Comp Metabolic Dak257 AL K PHOS 72 U/L 08/20/2018 Comp Metabolic Asd650 T(SGOT) 21 U/L 08/20/2018 Comp Metabolic Fev175 AL T(SGPT) 20 U/L 08/20/2018 Comp Metabolic Fjs313 BI LI T 1.1 mg/dL 08/20/2018 Comp Metabolic Tqa904 AL BUMIN 4.3 g/dL 08/20/2018 Comp Metabolic Beg289 TP RO 6.6 g/dL 08/20/2018 Comp Metabolic Flv235 GL OB 2.3 g/dL 08/20/2018 Comp Metabolic Lea359 A/ G Ratio 1.9 Ratio 08/20/2018 Comp Metabolic Ydr996 Os mo 287 mOsmo 08/20/2018 %Hba1C Zrm731 % HbA1c 79669-5 5.9 % 11/20/2017 %Hba1C Euf719 Gluc Ave 123 mg/dL 11/20/2017 B12 Cyu263 B12 1130.00 pg/ml 11/19/2017 Total Psa Ord10 [...] 29.2 pg 11/19/2017 Cbc With Differential Ord2 Ellis% 8.6 % 11/19/2017 Cbc With Differential Ord2 [...] 1.37 K/ul 11/19/2017 Cbc With Differential Ord2 Ellis ABS# 0.4 K/ul 11/19/2017 Cbc With Differential Ord2 Eos ABS# 0.0 K/ul 11/19/2017 Cbc With Differential Ord2 Baso ABS# 0.0 K/ul 11/19/2017 Comp Metabolic Seb093 NA 142 mEq/L 11/19/2017 Comp Metabolic Kgc938 K 4.3 mEq/L 11/19/2017 Comp Metabolic Zqv802 CL 104 mEq/L 11/19/2017 Comp Metabolic Juf936 CO2 29.0 mEq/L 11/19/2017 Comp Metabolic Osw993 AN ION GAP 13 11/19/2017 Comp Metabolic Hpj321 GL UCOSE 132 mg/dL 11/19/2017 Comp Metabolic Rkk078 Cr eat 1.2 mg/dL 11/19/2017 Comp Metabolic Bcf323 eG FR 63 ml/min/1.73m2 11/19 Comp Metabolic Fxh721 BUN 20 mg/dL 11/19/2017 Comp Metabolic Bjr740 B/ C Ratio 16.8 Ratio 11/19/2017 Comp Metabolic Ldw647 CA LCIUM 9.3 mg/dL 11/19/2017 Comp Metabolic Url830 AL K PHOS 74 U/L 11/19/2017 Comp Metabolic Zjk526 T(SGOT) 15 U/L 11/19/2017 Comp Metabolic Xtx399 AL T(SGPT) 15 U/L 11/19/2017 Comp Metabolic Zhu608 BI LI T 0.9 mg/dL 11/19/2017 Comp Metabolic Egd941 AL BUMIN 4.3 g/dL 11/19/2017 Comp Metabolic Cgr039 TP RO 6.6 g/dL 11/19/2017 Comp Metabolic Fbq394 GL OB 2.3 g/dL 11/19/2017 Comp Metabolic Ilp953 A/ G Ratio 1.9 Ratio 11/19/2017 Comp Metabolic Wta019 Os mo 288 mOsmo 11/19/2017 Tsh Ord6 [...] 30.2 pg 11/16/2016 Cbc With Differential Ord2 Ellis% 10.2 % 11/16/2016 Cbc With Differential Ord2 [...] 1.46 K/ul 11/16/2016 Cbc With Differential Ord2 Ellis ABS# 0.5 K/ul 11/16/2016 Cbc With Differential Ord2 Eos ABS# 0.1 K/ul 11/16/2016 Cbc With Differential Ord2 Baso ABS# 0.0 K/ul 11/16/2016 Comp Metabolic Kyx145 NA 141 mEq/L 11/16/2016 Comp Metabolic Ooy488 K 4.2 mEq/L 11/16/2016 Comp Metabolic Kst594 CL 106 mEq/L 11/16/2016 Comp Metabolic Qxl318 CO2 30.0 mEq/L 11/16/2016 Comp Metabolic Umv849 AN ION GAP 9 11/16/2016 Comp Metabolic Utq224 GL UCOSE 118 mg/dL 11/16/2016 Comp Metabolic Gzp896 Cr eat 1.2 mg/dL 11/16/2016 Comp Metabolic Nja023 eG FR 61 ml/min/1.73m2 11/16 Comp Metabolic Bkc861 BUN 22 mg/dL 11/16/2016 Comp Metabolic Ysi867 B/ C Ratio 17.7 Ratio 11/16/2016 Comp Metabolic Uvw539 CA LCIUM 9.2 mg/dL 11/16/2016 Comp Metabolic Lfo176 AL K PHOS 91 U/L 11/16/2016 Comp Metabolic Zwf380 T(SGOT) 16 U/L 11/16/2016 Comp Metabolic Pea278 AL T(SGPT) 16 U/L 11/16/2016 Comp Metabolic Vdx693 BI LI T 0.9 mg/dL 11/16/2016 Comp Metabolic Bym233 AL BUMIN 4.1 g/dL 11/16/2016 Comp Metabolic Cfa573 TP RO 6.4 g/dL 11/16/2016 Comp Metabolic Lrb081 GL OB 2.3 g/dL 11/16/2016 Comp Metabolic Exl605 A/ G Ratio 1.8 Ratio 11/16/2016 Comp Metabolic Xnb116 Os mo 286 mOsmo 11/16/2016 Lipid Ord30 [...] 1.8 mg/dL 08/01/2015 B Type Natriuretic Peptide Cqd0131 B-PIANO MAKER 13.10 pg/ml 08/01/2015 Lipid Ord30 CHOL 188 [...] Ord2 RDW 14.7 % 08/01/2015 Comp Metabolic Rkj555 NA 138 mEq/L 08/01/2015 Comp Metabolic Wmx533 K 4.2 mEq/L 08/01/2015 Comp Metabolic Tih110 CL 104 mEq/L 08/01/2015 Comp Metabolic Xqp113 CO2 27.0 mEq/L 08/01/2015 Comp Metabolic Tlq350 AN ION GAP 11 08/01/2015 Comp Metabolic Pih446 GL UCOSE 118 mg/dL 08/01/2015 Comp Metabolic Pcy070 Cr eat 1.2 mg/dL 08/01/2015 Comp Metabolic Zxg044 eG FR 66 ml/min/1.73m2 08/01 Comp Metabolic Mhh630 BUN 19 mg/dL 08/01/2015 Comp Metabolic Yqs776 B/ C Ratio 16.4 Ratio 08/01/2015 Comp Metabolic Eqg444 CA LCIUM 8.7 mg/dL 08/01/2015 Comp Metabolic Hpu072 AL K PHOS 85 U/L 08/01/2015 Comp Metabolic Sjt647 T(SGOT) 16 U/L 08/01/2015 Comp Metabolic Qfd811 AL T(SGPT) 20 U/L 08/01/2015 Comp Metabolic Nzz157 BI LI T 0.7 mg/dL 08/01/2015 Comp Metabolic Bwi236 AL BUMIN 3.9 g/dL 08/01/2015 Comp Metabolic Uyy095 TP RO 6.2 g/dL 08/01/2015 Comp Metabolic Rkw848 GL OB 2.4 g/dL 08/01/2015 Comp Metabolic Fox771 A/ G Ratio 1.6 Ratio 08/01/2015 Comp Metabolic Qja211 Os mo 279 mOsmo 08/01/2015 Tsh Ord6 hTSH II 1.79 uIU/mL 08/01/2015 Sed Rate Ord21 ESR 1 mm/hr 08/01/2015 Tsh Ord6 hTSH II 2.43 uIU/mL 07/07/2015 Folate Ord36 Folate 7.62 ng/mL 07/07/2015 B12 Rcl998 B12 228.00 pg/ml 07/07/2015 Review of Systems [...] Location: face 02/23/2019 on 3 on left hindu, 2 on right hindu and 1 each on dorsum of hands [...] Location: face 08/25/2018 on 3 on left hindu, 2 on right hindu and 1 each on dorsum of hands [...] Location: face 11/04/2017 on 3 on left hindu, 2 on right hindu and 1 each on dorsum of hands [...] CPT-4: J3301 08/25/2018 THER/PROPH/DIAG INJ SC/IM CPT-4: 76915 06/16/2018 TRIAMCINOLONE ACET I [place] NOS CPT-4: J3301 06/16/2018 PPPS, SUBSEQ VISIT CPT- 4: G0439 11/19/2017 DESTRUCT PREMALG LESION CPT-4: 73494 11/04/2017 DESTRUCT PREMALG LES 2-14 CPT-4: 57024 11/04/2017 PPPS, SUBSEQ VISIT CPT- 4: G0439 11/16/2016 THER/PROPH/DIAG INJ SC/IM CPT-4: 41321 07/25/2016 TRIAMCINOLONE ACET I [place] NOS CPT-4: J3301 07/25/2016 Vital Signs Date Vital 02/23/2019 Blood Pressure 1: 164/72 Code: 8480-6 BMI: 41.0 Code: 84882-0 Heart Rate 1: 46 bpm Height: 5'7" SpO2: 95% Weight: 262 lbs 10/03/2018 Blood Pressure 1: 134/74 Code: 8480-6 BMI: 40.1 Code: 07870-1 Heart Rate 1: 55 bpm Height: 5'7" SpO2: 97% Temperature: 36.7 (C ) / 98.1 (F) Weight: 256 lbs 08/25/2018 Blood Pressure 1: 128/68 Code: 8480-6 BMI: 39.8 Code: 04221-0 Heart Rate 1: 55 bpm Height: 5'7" SpO2: 97% Weight: 254 lbs 06/16/2018 Blood Pressure 1: 120/67 Code: 8480-6 BMI: 40.1 Code: 23502-0 Heart Rate 1: 83 bpm Height: 5'7" SpO2: 95% Weight: 256 lbs 04/24/2018 Blood Pressure 1: 134/76 Code: 8480-6 BMI: 39.3 Code: 02267-3 Heart Rate 1: 55 bpm Height: 5'7" SpO2: 95% Weight: 251 lbs 11/19/2017 Blood Pressure 1: 130/62 Code: 8480-6 BMI: 38.1 Code: 29434-2 Heart Rate 1: 73 bpm Height: 5'7" SpO2: 93% Waist Measure (cm): 99 cm Weight: 243 lbs 11/04/2017 Blood Pressure 1: 136/68 Code: 8480-6 BMI: 38.2 Code: 36136-8 Heart Rate 1: 61 bpm Height: 5'7" SpO2: 98% Weight: 244 lbs 10/07/2017 Blood Pressure 1: 150/70 Code: 8480-6 BMI: 39.5 Code: 77656-8 Heart Rate 1: 65 bpm Height: 5'7" SpO2: 97% Weight: 252 lbs 06/03/2017 Blood Pressure 1: 140/70 Code: 8480-6 BMI: 37.9 Code: 48682-4 Heart Rate 1: 66 bpm Height: 5'7" SpO2: 96% Weight: 242 lbs 03/19/2017 Blood Pressure 1: 136/82 Code: 8480-6 BMI: 38.8 Code: 85960-3 Heart Rate 1: 58 bpm Height: 5'7" SpO2: 94% Weight: 247 lbs 8 oz 01/21/2017 Blood Pressure 1: 136/74 Code: 8480-6 BMI: 39.1 Code: 61703-7 Heart Rate 1: 58 bpm Height: 5'7" SpO2: 97% Weight: 249 lbs 8 oz 12/04/2016 Blood Pressure 1: 136/72 Code: 8480-6 Heart Rate 1: 55 bpm Height: 5'7" SpO2: 99% Weight: 11/16/2016 Blood Pressure 1: 124/76 Code: 8480-6 BMI: 39.2 Code: 62968-1 Heart Rate 1: 62 bpm Height: 5'7" SpO2: 96% Waist Measure (cm): 104 cm Weight: 250 lbs 11/14/2016 Blood Pressure 1: 152/60 Code: 8480-6 BMI: 39.8 Code: 13612-2 Heart Rate 1: 63 bpm Height: 5'7" SpO2: 94% Weight: 254 lbs 09/17/2016 Blood Pressure 1: 138/70 Code: 8480-6 BMI: 40.3 Code: 48536-2 Heart Rate 1: 60 bpm Height: 5'7" SpO2: 96% Weight: 257 lbs 08/03/2016 Blood Pressure 1: 148/78 Code: 8480-6 BMI: 39.9 Code: 20193-8 Heart Rate 1: 50 bpm Height: 5'7" SpO2: 97% Weight: 255 lbs 07/25/2016 Blood Pressure 1: 130/68 Code: 8480-6 BMI: 39.9 Code: 88397-5 Heart Rate 1: 61 bpm Height: 5'7" SpO2: 95% Weight: 255 lbs 03/22/2016 Blood Pressure 1: 136/76 Code: 8480-6 BMI: 39.0 Code: 91320-3 Heart Rate 1: 60 bpm Height: 5'7" SpO2: 98% Weight: 249 lbs 01/12/2016 Blood Pressure 1: 146/76 Code: 8480-6 BMI: 37.8 Code: 57493-9 Heart Rate 1: 59 bpm Height: 5'7" SpO2: 98% Weight: 241 lbs 8 oz 10/13/2015 Blood Pressure 1: 136/72 Code: 8480-6 BMI: 37.6 Code: 19736-7 Heart Rate 1: 70 bpm Height: 5'7" SpO2: 99% Weight: 240 lbs 09/13/2015 Blood Pressure 1: 140/80 Code: 8480-6 BMI: 37.2 Code: 58596-0 Heart Rate 1: 64 bpm Height: 5'7" SpO2: 97% Weight: 237 lbs 8 oz 07/05/2015 Blood Pressure 1: 170/84 Code: 8480-6 Blood Pressure 1: 130/70 Code: 8480-6 BMI: 35.9 Code: 01222-4 Heart Rate 1: 67 bpm Height: 5'7" [...] Encounters Encounter Performer Loca tion Codes Date ([id number]) [id number] EST. [facility] Diagnosis: Essential (primary) hypertension[ICD10: I10] Diagnosis: Gastro-esophageal reflux disease without esophagitis[ICD10: K21.9] Diagnosis: Mixed hyperlipidemia[ICD10: E78.2] Diagnosis: Impaired fasting glucose[ICD10: R73.01] Kathy Espinosa MD, [facility] CPT-4: 47541 02/23/2019 ([id number]) 93790 EST. P ATIENT, LEVEL III Diagnosis: Cough[ICD10: R05] Diagnosis: Acute upper respiratory infection, unspecified[ICD10: J06.9] Amanda Espinosa MD, [facility] CPT-4: 15800 10/03/2018 ([id number]) 34529 EST. P ATIENT, LEVEL IV Diagnosis: Essential (primary) hypertension[ICD10: I10] Diagnosis: Mixed hyperlipidemia[ICD10: E78.2] Diagnosis: Other allergic rhinitis[ICD10: J30.89] Kathy Espinosa MD, [facility] CPT-4: 67513 08/25/2018 [id number] EST. PATIENT, LEVEL III Diagnosis: Other pruritus[ICD10: L29.8] Diagnosis: Allergic contact dermatitis due to plants, except food[ICD10: L23.7] Alba Espinosa MD, [facility] CPT-4: 20577 06/16/2018 ([id number]) 06326 EST. P ATIENT, LEVEL IV Diagnosis: Essential (primary) hypertension[ICD10: I10] Diagnosis: Allergic dermatitis of left upper eyelid[ICD10: H01.114] Diagnosis: Allergic rhinitis due to pollen[ICD10: J30.1] Kathy Espinosa MD, [facility] CPT-4: 08350 04/24/2018 ([id number]) [id number] EST. P ATIENT, LEVEL IV Diagnosis: Essential (primary) hypertension[ICD10: I10] Diagnosis: Mixed hyperlipidemia[ICD10: E78.2] Diagnosis: Actinic keratosis[ICD10: L57.0] Kathy Espinosa MD, [facility] CPT-4: 75587 11/04/2017 ([id number]) 85060 EST. P ATIENT, LEVEL IV Diagnosis: Essential (primary) hypertension[ICD10: I10] Diagnosis: Cervicalgia[ICD10: M54.2] Diagnosis: Myalgia[ICD10: M79.1] Kathy Espinosa MD, [facility] CPT-4: 06418 10/07/2017 ([id number]) 52105 EST. P ATIENT, LEVEL IV Diagnosis: Essential (primary) hypertension[ICD10: I10] Diagnosis: Major depressive disorder, recurrent, mild[ICD10: F33.0] Diagnosis: Generalized anxiety disorder[ICD10: F41.1] Kathy Espinosa MD, [facility] CPT-4: 62801 06/03/2017 ([id number]) 61603 EST. P ATIENT, LEVEL IV Diagnosis: Essential (primary) hypertension[ICD10: I10] Diagnosis: Mixed hyperlipidemia[ICD10: E78.2] Diagnosis: Low back pain[ICD10: M54.5] Kathy Espinosa MD, [facility] CPT-4: 79750 03/19/2017 ([id number]) 44720 EST. P ATIENT, LEVEL III Diagnosis: Pain in right lower leg[ICD10: M79.661] Diagnosis: Localized edema[ICD10: R60.0] Diagnosis: Contusion of right lower leg, initial encounter[ICD10: S80.11XA] Amanda Espinosa MD, [facility] CPT-4: 64591 01/21/2017 ([id number]) 75986 EST. P ATIENT, LEVEL IV Diagnosis: Mixed hyperlipidemia[ICD10: E78.2] Diagnosis: Major depressive disorder, recurrent, moderate[ICD10: F33.1] Kathy Espinosa MD, [facility] CPT-4: 47576 12/04/2016 ([id number]) 08385 EST. P ATIENT, LEVEL IV Diagnosis: Mixed hyperlipidemia[ICD10: E78.2] Diagnosis: Major depressive disorder, recurrent, mild[ICD10: F33.0] Diagnosis: Generalized anxiety disorder[ICD10: F41.1] Diagnosis: Essential (primary) hypertension[ICD10: I10] Diagnosis: Chronic obstructive pulmonary disease with (acute) exacerbation[ICD10: J44.1] Kathy Espinosa MD, [facility] CPT-4: 45067 11/14/2016 [id number] EST. PATIENT, LEVEL III Diagnosis: Acute laryngopharyngitis[ICD10: J06.0] Diagnosis: Other allergic rhinitis[ICD10: J30.89] Alba Espinosa MD, [facility] CPT-4: 72611 09/17/2016 [id number] EST. PATIENT, LEVEL III Diagnosis: Contusion of right lower leg, initial encounter[ICD10: S80.11XA] Alba Espinosa MD, [facility] CPT-4: 68887 08/03/2016 ([id number]) [id number] EST. P ATIENT, LEVEL IV Diagnosis: Essential (primary) hypertension[ICD10: I10] Diagnosis: Mixed hyperlipidemia[ICD10: E78.2] Diagnosis: Acute recurrent maxillary sinusitis[ICD10: J01.01] Diagnosis: Chronic obstructive pulmonary disease with (acute) exacerbation[ICD10: J44.1] Kathy Espinosa MD, [facility] CPT-4: 47195 07/25/2016 ([id number]) [id number] EST. P ATIENT, LEVEL IV Diagnosis: Essential (primary) hypertension[ICD10: I10] Diagnosis: Gastro-esophageal reflux disease without esophagitis[ICD10: K21.9] Diagnosis: Generalized anxiety disorder[ICD10: F41.1] Diagnosis: Major depressive disorder, recurrent, mild[ICD10: F33.0] Kathy Espinosa MD, [facility] CPT-4: 46485 03/22/2016 ([id number]) [id number] EST. P ATIENT, LEVEL IV Diagnosis: Essential (primary) hypertension[ICD10: I10] Diagnosis: Coronary angioplasty status[ICD10: Z98.61] Diagnosis: Hyperlipidemia, unspecified[ICD10: E78.5] Diagnosis: Major depressive disorder, recurrent, moderate[ICD10: F33.1] Kathy Espinosa MD, [facility] CPT-4: 53343 01/12/2016 ([id number]) [id number] EST. P ATIENT, LEVEL IV Diagnosis: Essential (primary) hypertension[ICD10: I10] Diagnosis: Gastro-esophageal reflux disease without esophagitis[ICD10: K21.9] Kathy Espinosa MD, [facility] CPT-4: 14883 10/13/2015 ([id number]) [id number] EST. P ATIENT, LEVEL IV Diagnosis: Gastro-esophageal reflux disease without esophagitis[ICD10: K21.9] Diagnosis: Essential (primary) hypertension[ICD10: I10] Diagnosis: Coronary angioplasty status[ICD10: Z98.61] Kathy Espinosa MD, LL C CPT-4: 52082 09/13/2015 ([id number]) OFFICE STE[place] [facility] LEVEL 4 Diagnosis: Hyperlipidemia, unspecified[ICD10: E78.5] Diagnosis: Personal history of other diseases of the circulatory system[ICD10: Z86.79] Diagnosis: Unspecified osteoarthritis, unspecified site[ICD10: M19.90] Diagnosis: Polyneuropathy, unspecified[ICD10: G62.9] Kathy Espinosa MD, CONNIE C CPT-4: 49223 07/05/2015 Plan of Care Planned Activity Notes [...] mile walks/rides. 02/23/2019 Appointment: Kathy Espinosa WPtel: [phone] [facility] (15 min) Moderate 02/23/2019 Patient Education: Patient Medication Summary Completed 02/23/2019 Patient Education: Cholesterol Management Completed 02/23/2019 Appointment: Amanda Romero WPtel: [phone] [phone] (15 min) Moderate 02/06/2019 Visit Plan: URI - Pt advised to inc rease fluids, vitamin C. Discussed natural and expected course of this diagnosis and need to alert me if symptoms do not follow expected course, or if any worse. RX sent to patient's pharmacy. 10/03/2018 Appointment: Amanda Romero WPtel: [phone] [phone] (30 min) Complex 10/03/2018 Patient Education: Patient [...] clinic 08/25/2018 Appointment: Kathy Espinosa WPtel: [phone] [facility] (15 min) Moderate 08/25/2018 Patient Education: Patient [...] they worsen. 06/16/2018 Appointment: Alba Fajardo WPtel: [facility]5 [facility] (15 min) Moderate 06/16/2018 Patient Education: Patient Medication Summary Completed 06/16/2018 Patient Education: Poison Ashley Completed 06/16/2018 Appointment: Amanda Romero WPtel: [address] [place], [place] [phone] [place] (15 min) Moderate 05/23/2018 Appointment: Kathy Espinosa WPtel: [address] [place], [place] [phone] (15 min) Moderate 05/15/2018 Visit Plan: Hypertension [...] the office 04/24/2018 Appointment: Kathy Espinosa WPtel: [address] [place], [place] [phone] (15 min) Moderate 04/24/2018 Patient Education: Patient Medication Summary Completed 04/24/2018 Appointment: Kathy Espinosa WPtel: [address] [place], [place] [phone] [place] (15 min) Moderate 02/25/2018 Appointment: Kathy Espinosa WPtel: [address] [place], [place] [phone] (15 min) Moderate 02/20/2018 Appointment: Kathy Espinosa WPtel: [address] [place], [place] [phone] (15 min) Moderate 02/13/2018 Patient Education: Patient [...] care surrogate. 11/19/2017 Appointment: Amanda Romero WPtel: [facility] [phone] [facility] - Annual Wellness Visit 11/19/2017 Patient [...] - one lesion each hand and on hindu x 3 lesions and 2 lesions right hindu 11/04/2017 Appointment: Kathy Espinosa WPtel[facility] [place] (15 min) Moderate 11/04/2017 Patient [...] two weeks. 10/07/2017 Appointment: Kathy Espinosa WPtel: [facility] [place] (15 min) Moderate 10/07/2017 Patient [...] flu shots 06/03/2017 Appointment: Kathy Espinosa WPtel: [facility] [place] (15 min) Moderate 06/03/2017 Patient Education: Patient Medication Summary Completed 06/03/2017 Patient Education: Obesity Completed 06/03/2017 Appointment: [phone] [place] (15 min) Moderate 05/22/2017 Visit [...] of back 03/19/2017 Appointment: Kathy Espinosa WPtel: [phone] [facility] [place] (15 min) Moderate 03/19/2017 Patient Education: [...] doppler. 01/21/2017 Appointment: Amanda Romero [facility]Ptel[phone] [phone] [place] (15 min) Moderate 01/21/2017 Patient Education: [...] medications. 12/04/2016 Appointment: Kathy Espinosa WPtel: [phone] [phone] (15 min) Moderate 12/04/2016 Patient Education: Patient [...] surrogate. 11/16/2016 Appointment: Alba Fajardo WPtel: [phone] [place] [facility] - Annual Wellness Visit 11/16/2016 Patient [...] acute concerns. 11/14/2016 Appointment: Kathy Espinosa WPtel: [phone] [facility] [place] (15 min) Moderate 11/14/2016 Patient Education: Patient Medication Summary Completed 11/14/2016 Patient Education: Obesity Completed 11/14/2016 Appointment: Kathy Espinosa WPtel: [phone] [facility] [place] (15 min) Moderate 10/24/2016 Visit Plan: [...] 08/03/2016 Appointment: Amanda Romero [facility]Ptel: [phone] [phone] [place] (15 min) Moderate 08/03/2016 Patient Education: [...] show improvement. 07/25/2016 Appointment: Kathy Espinosa WPtel: [address] [place], [place] [phone] (15 min) Moderate 07/25/2016 Patient Education: Patient [...] medications. 01/12/2016 Appointment: Kathy Espinosa WPtel: [phone] [facility]66[facility] (15 min) Moderate 01/12/2016 Patient Education: Patient Medication Summary Completed 01/12/2016 Patient Education: Obesity Completed 01/12/2016 Patient Education: Hypertension Completed 01/12/2016 Appointment: Kathy Espinosa WPtel: [phone] [facility] (15 min) Moderate 12/01/2015 Visit [...] not improving. 10/13/2015 Appointment: Kathy Espinosa WPtel: [facility] (15 min) Moderate 10/13/2015 Patient Education: Patient [...] TWICE DAILY 09/13/2015 Appointment: Kathy Espinosa WPtel: [address] [place] [phone] (15 min) Moderate 09/13/2015 Patient Education: Patient Medication Summary Completed 09/13/2015 Patient Education: Hypertension Completed 09/13/2015 Appointment: Kathy Espinosa WPtel: [address] [place] [address] (15 min) Moderate 08/09/2015 Visit Plan: Hyperlipidemia [...] and lipitor. 07/05/2015 Appointment: Kathy Espinosa WPtel: [address] [place] [address] New Patient 07/05/2015 Patient Education: Patient Medication [...] check xray of back probiotics - Culture sheba, errol carrillo mitch, or generic . URI - Pt [...] do not improve or if they worsen. we will send a refer ral to [facility] for physical therapy for your neck . [...] - one lesion each hand and on hindu x 3 lesions and 2 lesions right hindu
[2020-04-12] MEDS ORDERED: KETOROLAC 30 MG/ML VIAL IVP ONE (22:15)
--- OUTSIDE RECORDS SUMMARY | 2020-04-12 22:16 | XMS REPORT | CCD ---
Author Author Joaquín Espinosa Organization [facility] Address [address] [place] [address] Phone Care Team Providers Care Customs Agent Name Role Phone PP Unavailable CCM Unavailable Summary Purpose Interface Exchange Insurance Providers Payer name Policy type / Coverage type Covered alliance party ID Effective Begin Date Effective End Date WPS Medicare Part B Medicare Part B [id number] Unknown Cigna Medicare Part B 36 [id number] Unknown Family history Grandfather Diagnosis Age At Onset lung cancer Unknown Runs in the family Diagnosis Age At Onset Cancer Unknown Grandfather Diagnosis Age At Onset Cancer Unknown Social History Social History Element Codes Description Effective Dates Marital status Unknown M arried Nitza 07/05/2015 Number of children Unknown 3 07/05/2015 Employment Unknown Retir ed 07/05/[address]: 8515334 Quit over 10 years ago 07/05/[address]: 165684 Currently drinks alcohol beer 07/05/2015 Allergies, Adverse [...] ICD-10: J30.1 Active 04/24/2018 Unknown Encounter for [facility] adult medical examination without abnormal findings [...] E R 10 mEq tablet,extended release RxNorm: 805935 1 Tablet(s) PO daily as needed 02/27/2019 03/18/2019 Active furosemide 20 mg tablet RxNorm: 386514 1 Tablet(s) PO daily as needed 02/27/2019 03/18/2019 Ac tive potassium chloride E R 10 mEq tablet,extended release RxNorm: 347538 1 Tablet(s) PO daily as needed 02/27/2019 02/26/2019 Inactive naproxen 500 mg tablet RxNorm: 579773 1 TABLET(S) BID NEEDED FOR PAIN 01/26/2019 07/24/2019 Ac tive Crestor 10 mg tablet RxNorm: 274341 1 Tablet(s) PO every other day 11/03/2018 01/26/2020 Ac tive Zithromax Z-Ralph 250 mg tablet RxNorm: 501578 1 Tablet(s) PO UD 10/13/2018 10/12/2018 Inactive Zithromax Z-Ralph 250 mg tablet RxNorm: 698284 1 Tablet(s) PO UD 10/13/2018 10/17/2018 Inactive escitalopram 20 mg t ablet RxNorm: 525483 Tablet(s) TAKE ONE & ONE-HALF TABLETS BY MOUTH IN THE EVENING 10/07/2018 No Stop Date Active Keflex 500 mg capsule RxNorm: 212070 1 Capsule(s) PO TID 10/03/2018 10/09/2018 Inactive Kenalog 40 mg/mL jenni pension for injection RxNorm: 5474615 Milliliter(s) Inj 10/03/2018 10/03/2018 In active pantoprazole 40 mg t ablet,delayed release RxNorm: 567234 1 Tablet(s) BID 09/24/2018 12/17/2019 Ac tive naproxen 500 mg tablet RxNorm: 273102 1 Tablet(s) BID as needed for pain 09/24/2018 01/25/2019 In active Kenalog 40 mg/mL jenni pension for injection RxNorm: 1253503 1 Milliliter(s) Inj 08/25/2018 08/25/2018 In active pantoprazole 40 mg t ablet,delayed release RxNorm: 844717 TAKE 1 TABLET BY MOUT H TWICE DAILY 06/24/2018 09/23/2018 Inactive betamethasone diprop ionate 0.05 % topical cream RxNorm: 625506 1 Application TOP BID as needed 06/16/2018 No Stop Date Active prednisone 20 mg tablet RxNorm: 663206 2 Tablet(s) PO daily 06/16/2018 06/20/2018 Inactive Kenalog 40 mg/mL jenni pension for injection RxNorm: 4498613 1 Milliliter(s) Inj 06/16/2018 06/16/2018 In active naproxen 500 mg tablet RxNorm: 375197 TAKE 1 TABLET BY MOUTH TWICE DAILY NE EDED FOR PAIN 05/13/2018 09/23/2018 Inactive naproxen 500 mg tablet RxNorm: 170310 TAKE ONE TABLET BY MOUTH TWICE DAILY NEEDED FOR PAIN 01/07/2018 05/12/2018 Inactive escitalopram 20 mg t ablet RxNorm: 599895 TAKE ONE & ONE-HALF T ABLETS BY MOUTH IN THE EVENING 12/16/2017 10/06/2018 Inactive pantoprazole 40 mg t ablet,delayed release RxNorm: 913997 1 Tablet(s) PO BID 11/21/2017 03/20/2018 In active Crestor 10 mg tablet RxNorm: 809085 1 Tablet(s) PO every other day 10/07/2017 11/02/2018 In active naproxen 500 mg tablet RxNorm: 649052 TAKE ONE TABLET BY MOUTH TWICE DAILY NEEDED FOR PAIN 06/27/2017 12/23/2017 Inactive escitalopram 20 mg t ablet RxNorm: 778199 1 Tablet(s) PO QPM 06/03/2017 05/28/2018 Inactive pantoprazole 40 mg t ablet,delayed release RxNorm: 741312 1 Tablet(s) PO BID 03/19/2017 05/07/2017 In active naproxen 500 mg tablet RxNorm: 188080 TAKE ONE TABLET BY MOUTH TWICE DAILY NEEDED FOR PAIN 02/11/2017 06/10/2017 Inactive naproxen 500 mg tablet RxNorm: 439528 TAKE ONE TABLET BY MOUTH TWICE DAILY NEEDED FOR PAIN 12/14/2016 02/10/2017 Inactive escitalopram 20 mg t ablet RxNorm: 963475 1.5 Tablet(s) PO QPM 12/04/2016 06/02/2017 Inactive buspirone 5 mg tablet RxNorm: 906497 1 Tablet(s) PO BID 11/14/2016 12/03/2016 Inactive amoxicillin 500 mg c apsule RxNorm: 022368 1 Capsule(s) PO TID 09/17/2016 09/26/2016 Inactive prednisone 20 mg tablet RxNorm: 472782 2 Tablet(s) PO daily 09/17/2016 09/21/2016 Inactive escitalopram 20 mg t ablet RxNorm: 347145 1 Tablet(s) PO QPM 08/28/2016 12/03/2016 Inactive naproxen 500 mg tablet RxNorm: 080682 TAKE ONE TABLET BY MOUTH TWICE DAILY NEEDED FOR PAIN 08/01/2016 11/28/2016 Inactive sulfamethoxazole 800 mg-trimethoprim 160 mg tablet RxNorm: 055202 1 Tablet(s) PO BID 07/25/2016 07/31/2016 Inactive Kenalog 40 mg/mL jenni pension for injection RxNorm: 6231402 Milliliter(s) Inj 07/25/2016 07/25/2016 In active Symbicort 80 mcg-4.5 mcg/actuation HFA aerosol inhaler RxNorm: 2985207 2 INH QHS 07/25/2016 09/11/2016 In active escitalopram 20 mg t ablet RxNorm: 303855 1 Tablet(s) PO QPM 03/22/2016 08/27/2016 Inactive alprazolam 0.5 mg di sintegrating tablet RxNorm: 588931 1 Tablet(s) PO TID as needed anxiety 03/22/2016 11/13/2016 Inactive atorvastatin 20 mg t ablet RxNorm: 658261 1 Tablet(s) PO daily 01/12/2016 10/06/2017 Inactive Lexapro 10 mg tablet RxNorm: 058705 1 Tablet(s) PO QPM 01/12/2016 03/21/2016 Inactive pantoprazole 40 mg t ablet,delayed release RxNorm: 962588 1 Tablet(s) PO daily 10/13/2015 11/11/2015 In active pantoprazole 40 mg t ablet,delayed release RxNorm: 741718 1 Tablet(s) PO BID 09/13/2015 10/12/2015 In active naproxen 500 mg tablet RxNorm: 789867 Tablet(s) PO BID as needed for pain 07/05/2015 07/31/2016 In active folic acid 400 mcg t ablet RxNorm: 847265 1 Tablet(s) PO daily No Start Date Active Vitamin B12 500 mcg RxNorm: 2000 Microgram(s) PO daily No Start Date Active Toprol XL 50 mg tabl et,extended release RxNorm: 319718 1 Tablet(s) PO daily No Start Date Active Tudorza Pressair 400 mcg/actuation breath activated RxNorm: 2876564 1 INH QAM No Start Date Active aspirin 81 mg capsul e,delayed release RxNorm: 250768 1 Capsule(s) PO daily No Start Date Active Incruse Ellipta 62.5 mcg/actuation powder for inhalation RxNorm: 7151234 1 INH daily No Start Date Active clopidogrel 75 mg ta blet RxNorm: 439032 1 Tablet(s) PO daily No Start Date Active Symbicort 80 mcg-4.5 mcg/actuation HFA aerosol inhaler RxNorm: 4306649 2 INH QHS No Start Date 07/24/2016 Inactive pantoprazole 40 mg t ablet,delayed release RxNorm: 776449 1 Tablet(s) PO daily No Start Date 09/12/2015 Inactive atorvastatin 40 mg t ablet RxNorm: 354955 1 Tablet(s) PO daily No Start Date 01/11/2016 Inactive furosemide 20 mg tablet RxNorm: 801383 1 Tablet(s) PO daily No Start Date 09/11/2016 Inactive naproxen 500 mg tablet RxNorm: 391969 Tablet(s) PO TID No Start Date 07/04/2015 Inactive Medication Administered Medication Codes Instruc tions Start Date Status Kenalog 40 mg/mL suspension for injection RxNorm: 4851199 Milliliter 10/03/2018 No longer Active Kenalog 40 mg/mL suspension for injection RxNorm: 6485144 1Milliliter 08/25/2018 N o longer Active Kenalog 40 mg/mL suspension for injection RxNorm: 0958635 1Milliliter 06/16/2018 N o longer Active Kenalog 40 mg/mL suspension for injection RxNorm: 5513168 Milliliter 07/25/2016 No longer Active Immunizations Vaccine [...] 29.4 pg 02/23/2019 Cbc With Differential Ord2 Knox% 6.9 % 02/23/2019 Cbc With Differential Ord2 [...] 1.32 K/ul 02/23/2019 Cbc With Differential Ord2 Knox ABS# 0.3 K/ul 02/23/2019 Cbc With Differential Ord2 Eos ABS# 0.0 K/ul 02/23/2019 Cbc With Differential Ord2 Baso ABS# 0.0 K/ul 02/23/2019 %Hba1C Ggm882 % HbA1c 99216-6 6.1 % 02/23/2019 %Hba1C Wsu076 Gluc Ave 128 mg/dL 02/23/2019 Lipid Ord30 CHOL 129 mg/dL 02/23/2019 Lipid Ord30 HDL 36.0 mg/dl 02/23/2019 Lipid Ord30 TRIG 133 mg/dL 02/23/2019 Lipid Ord30 LDL 66 mg/dL 02/23/2019 Lipid Ord30 C/HDL 3.6 Ratio 02/23/2019 Comp Metabolic Jdk923 NA 140 mEq/L 02/23/2019 Comp Metabolic Kle547 K 4.3 mEq/L 02/23/2019 Comp Metabolic Rmv791 CL 104 mEq/L 02/23/2019 Comp Metabolic Oez309 CO2 28.0 mEq/L 02/23/2019 Comp Metabolic Yqu438 AN ION GAP 12 02/23/2019 Comp Metabolic Dgn551 GL UCOSE 115 mg/dL 02/23/2019 Comp Metabolic Sbt841 Cr eat 1.2 mg/dL 02/23/2019 Comp Metabolic Iar845 eG FR 62 ml/min/1.73m2 02/23 Comp Metabolic Xlg195 BUN 17 mg/dL 02/23/2019 Comp Metabolic Mrt721 B/ C Ratio 14.0 Ratio 02/23/2019 Comp Metabolic Xey947 CA LCIUM 9.2 mg/dL 02/23/2019 Comp Metabolic Oex932 AL K PHOS 80 U/L 02/23/2019 Comp Metabolic Qzs457 T(SGOT) 16 U/L 02/23/2019 Comp Metabolic Vcb192 AL T(SGPT) 15 U/L 02/23/2019 Comp Metabolic Awo987 BI LI T 1.0 mg/dL 02/23/2019 Comp Metabolic Cxq825 AL BUMIN 4.1 g/dL 02/23/2019 Comp Metabolic Aev717 TP RO 6.5 g/dL 02/23/2019 Comp Metabolic Yay025 GL OB 2.4 g/dL 02/23/2019 Comp Metabolic Rnn131 A/ G Ratio 1.7 Ratio 02/23/2019 Comp Metabolic Jbv609 Os mo 282 mOsmo 02/23/2019 Total Psa [...] 30.1 pg 08/20/2018 Cbc With Differential Ord2 Knox% 8.0 % 08/20/2018 Cbc With Differential Ord2 [...] 1.41 K/ul 08/20/2018 Cbc With Differential Ord2 Knox ABS# 0.4 K/ul 08/20/2018 Cbc With Differential Ord2 Eos ABS# 0.1 K/ul 08/20/2018 Cbc With Differential Ord2 Baso ABS# 0.0 K/ul 08/20/2018 Tsh Ord6 TSH (3rd IS) 2.07 uIU/mL 08/20/2018 %Hba1C Djr910 % HbA1c 73834-9 6.0 % 08/20/2018 %Hba1C Rrg956 Gluc Ave 126 mg/dL 08/20/2018 Comp Metabolic Hka633 NA 142 mEq/L 08/20/2018 Comp Metabolic Gqe379 K 4.2 mEq/L 08/20/2018 Comp Metabolic Ztz986 CL 105 mEq/L 08/20/2018 Comp Metabolic Ydd917 CO2 30.0 mEq/L 08/20/2018 Comp Metabolic Ovy965 AN ION GAP 11 08/20/2018 Comp Metabolic Nhi748 GL UCOSE 132 mg/dL 08/20/2018 Comp Metabolic Ujt155 Cr eat 1.3 mg/dL 08/20/2018 Comp Metabolic Cgc590 eG FR 58 ml/min/1.73m2 08/20 Comp Metabolic Vcl146 BUN 19 mg/dL 08/20/2018 Comp Metabolic Vlv586 B/ C Ratio 14.8 Ratio 08/20/2018 Comp Metabolic Tdj833 CA LCIUM 9.2 mg/dL 08/20/2018 Comp Metabolic Whd431 AL K PHOS 72 U/L 08/20/2018 Comp Metabolic Gof933 T(SGOT) 21 U/L 08/20/2018 Comp Metabolic Ltk192 AL T(SGPT) 20 U/L 08/20/2018 Comp Metabolic Vqv158 BI LI T 1.1 mg/dL 08/20/2018 Comp Metabolic Bwb528 AL BUMIN 4.3 g/dL 08/20/2018 Comp Metabolic Srb561 TP RO 6.6 g/dL 08/20/2018 Comp Metabolic Akv813 GL OB 2.3 g/dL 08/20/2018 Comp Metabolic Fxq828 A/ G Ratio 1.9 Ratio 08/20/2018 Comp Metabolic Ieb195 Os mo 287 mOsmo 08/20/2018 %Hba1C Dov988 % HbA1c 81019-8 5.9 % 11/20/2017 %Hba1C Kmu918 Gluc Ave 123 mg/dL 11/20/2017 B12 Nvt808 B12 1130.00 pg/ml 11/19/2017 Total Psa Ord10 [...] 29.2 pg 11/19/2017 Cbc With Differential Ord2 Knox% 8.6 % 11/19/2017 Cbc With Differential Ord2 [...] 1.37 K/ul 11/19/2017 Cbc With Differential Ord2 Knox ABS# 0.4 K/ul 11/19/2017 Cbc With Differential Ord2 Eos ABS# 0.0 K/ul 11/19/2017 Cbc With Differential Ord2 Baso ABS# 0.0 K/ul 11/19/2017 Comp Metabolic Hsh515 NA 142 mEq/L 11/19/2017 Comp Metabolic Mnl804 K 4.3 mEq/L 11/19/2017 Comp Metabolic Hrf143 CL 104 mEq/L 11/19/2017 Comp Metabolic Ufc429 CO2 29.0 mEq/L 11/19/2017 Comp Metabolic Ocv361 AN ION GAP 13 11/19/2017 Comp Metabolic Eqg020 GL UCOSE 132 mg/dL 11/19/2017 Comp Metabolic Ukx231 Cr eat 1.2 mg/dL 11/19/2017 Comp Metabolic Fuq054 eG FR 63 ml/min/1.73m2 11/19 Comp Metabolic Sed982 BUN 20 mg/dL 11/19/2017 Comp Metabolic Hus228 B/ C Ratio 16.8 Ratio 11/19/2017 Comp Metabolic Gew348 CA LCIUM 9.3 mg/dL 11/19/2017 Comp Metabolic Yig273 AL K PHOS 74 U/L 11/19/2017 Comp Metabolic Iab418 T(SGOT) 15 U/L 11/19/2017 Comp Metabolic Tfm772 AL T(SGPT) 15 U/L 11/19/2017 Comp Metabolic Fzb635 BI LI T 0.9 mg/dL 11/19/2017 Comp Metabolic Ioi762 AL BUMIN 4.3 g/dL 11/19/2017 Comp Metabolic Iwf014 TP RO 6.6 g/dL 11/19/2017 Comp Metabolic Xrt157 GL OB 2.3 g/dL 11/19/2017 Comp Metabolic Wjt121 A/ G Ratio 1.9 Ratio 11/19/2017 Comp Metabolic Pzy055 Os mo 288 mOsmo 11/19/2017 Tsh Ord6 [...] 30.2 pg 11/16/2016 Cbc With Differential Ord2 Knox% 10.2 % 11/16/2016 Cbc With Differential Ord2 [...] 1.46 K/ul 11/16/2016 Cbc With Differential Ord2 Knox ABS# 0.5 K/ul 11/16/2016 Cbc With Differential Ord2 Eos ABS# 0.1 K/ul 11/16/2016 Cbc With Differential Ord2 Baso ABS# 0.0 K/ul 11/16/2016 Comp Metabolic Vpm394 NA 141 mEq/L 11/16/2016 Comp Metabolic Czu000 K 4.2 mEq/L 11/16/2016 Comp Metabolic Nwv908 CL 106 mEq/L 11/16/2016 Comp Metabolic Pce700 CO2 30.0 mEq/L 11/16/2016 Comp Metabolic Crp661 AN ION GAP 9 11/16/2016 Comp Metabolic Ezn760 GL UCOSE 118 mg/dL 11/16/2016 Comp Metabolic Tea719 Cr eat 1.2 mg/dL 11/16/2016 Comp Metabolic Ffi524 eG FR 61 ml/min/1.73m2 11/16 Comp Metabolic Wct771 BUN 22 mg/dL 11/16/2016 Comp Metabolic Qiw184 B/ C Ratio 17.7 Ratio 11/16/2016 Comp Metabolic Zxe107 CA LCIUM 9.2 mg/dL 11/16/2016 Comp Metabolic Ikr135 AL K PHOS 91 U/L 11/16/2016 Comp Metabolic Ayf614 T(SGOT) 16 U/L 11/16/2016 Comp Metabolic Bgv325 AL T(SGPT) 16 U/L 11/16/2016 Comp Metabolic Qeg672 BI LI T 0.9 mg/dL 11/16/2016 Comp Metabolic Pzy280 AL BUMIN 4.1 g/dL 11/16/2016 Comp Metabolic Txx323 TP RO 6.4 g/dL 11/16/2016 Comp Metabolic Pcf869 GL OB 2.3 g/dL 11/16/2016 Comp Metabolic Xkq011 A/ G Ratio 1.8 Ratio 11/16/2016 Comp Metabolic Qfr798 Os mo 286 mOsmo 11/16/2016 Lipid Ord30 [...] 1.8 mg/dL 08/01/2015 B Type Natriuretic Peptide Qmg6515 B-[employer] 13.10 pg/ml 08/01/2015 Lipid Ord30 CHOL 188 [...] Ord2 RDW 14.7 % 08/01/2015 Comp Metabolic Pdl651 NA 138 mEq/L 08/01/2015 Comp Metabolic Pqm867 K 4.2 mEq/L 08/01/2015 Comp Metabolic Vcj122 CL 104 mEq/L 08/01/2015 Comp Metabolic Zdy941 CO2 27.0 mEq/L 08/01/2015 Comp Metabolic Knh331 AN ION GAP 11 08/01/2015 Comp Metabolic Zst826 GL UCOSE 118 mg/dL 08/01/2015 Comp Metabolic Qjt846 Cr eat 1.2 mg/dL 08/01/2015 Comp Metabolic Ybu479 eG FR 66 ml/min/1.73m2 08/01 Comp Metabolic Oso120 BUN 19 mg/dL 08/01/2015 Comp Metabolic Kgi115 B/ C Ratio 16.4 Ratio 08/01/2015 Comp Metabolic Qny557 CA LCIUM 8.7 mg/dL 08/01/2015 Comp Metabolic Bvk606 AL K PHOS 85 U/L 08/01/2015 Comp Metabolic Yhk475 T(SGOT) 16 U/L 08/01/2015 Comp Metabolic Sus971 AL T(SGPT) 20 U/L 08/01/2015 Comp Metabolic Akh979 BI LI T 0.7 mg/dL 08/01/2015 Comp Metabolic Kyx738 AL BUMIN 3.9 g/dL 08/01/2015 Comp Metabolic Kfx232 TP RO 6.2 g/dL 08/01/2015 Comp Metabolic Qsv447 GL OB 2.4 g/dL 08/01/2015 Comp Metabolic Vil838 A/ G Ratio 1.6 Ratio 08/01/2015 Comp Metabolic Hhr766 Os mo 279 mOsmo 08/01/2015 Tsh Ord6 hTSH II 1.79 uIU/mL 08/01/2015 Sed Rate Ord21 ESR 1 mm/hr 08/01/2015 Tsh Ord6 hTSH II 2.43 uIU/mL 07/07/2015 Folate Ord36 Folate 7.62 ng/mL 07/07/2015 B12 Ldo539 B12 228.00 pg/ml 07/07/2015 Review of Systems [...] tightness 02/23/2019 Respiratory No cough Respiratory dyspnea /03/2019 Respiratory No pedal edema 02/23/2019 Gastrointestinal No [...] Location: face 02/23/2019 on 3 on left sabianist, 2 on right sabianist and 1 each on dorsum of hands [...] Location: face 08/25/2018 on 3 on left sabianist, 2 on right sabianist and 1 each on dorsum of hands [...] General 1995 Ears/Nose/Throat lips/teeth/gingiva Overall: benign lips 11/04/2017 None [...] Location: face 11/04/2017 on 3 on left sabianist, 2 on right sabianist and 1 each on dorsum of hands [...] CPT-4: J3301 08/25/2018 THER/PROPH/DIAG INJ SC/IM CPT-4: 12569 06/16/2018 TRIAMCINOLONE ACET I [place] NOS CPT-4: J3301 06/16/2018 PPPS, SUBSEQ VISIT CPT- 4: G0439 11/19/2017 DESTRUCT PREMALG LESION CPT-4: 36857 11/04/2017 DESTRUCT PREMALG LES 2-14 CPT-4: 63782 11/04/2017 PPPS, SUBSEQ VISIT CPT- 4: G0439 11/16/2016 THER/PROPH/DIAG INJ SC/IM CPT-4: 03299 07/25/2016 TRIAMCINOLONE ACET I [place] NOS CPT-4: J3301 07/25/2016 Vital Signs Date Vital 02/23/2019 Blood Pressure 1: 164/72 Code: 8480-6 BMI: 41.0 Code: 16933-0 Heart Rate 1: 46 bpm Height: 5'7" SpO2: 95% Weight: 262 lbs 10/03/2018 Blood Pressure 1: 134/74 Code: 8480-6 BMI: 40.1 Code: 62513-5 Heart Rate 1: 55 bpm Height: 5'7" SpO2: 97% Temperature: 36.7 (C ) / 98.1 (F) Weight: 256 lbs 08/25/2018 Blood Pressure 1: 128/68 Code: 8480-6 BMI: 39.8 Code: 88406-1 Heart Rate 1: 55 bpm Height: 5'7" SpO2: 97% Weight: 254 lbs 06/16/2018 Blood Pressure 1: 120/67 Code: 8480-6 BMI: 40.1 Code: 63247-5 Heart Rate 1: 83 bpm Height: 5'7" SpO2: 95% Weight: 256 lbs 04/24/2018 Blood Pressure 1: 134/76 Code: 8480-6 BMI: 39.3 Code: 34301-8 Heart Rate 1: 55 bpm Height: 5'7" SpO2: 95% Weight: 251 lbs 11/19/2017 Blood Pressure 1: 130/62 Code: 8480-6 BMI: 38.1 Code: 06321-9 Heart Rate 1: 73 bpm Height: 5'7" SpO2: 93% Waist Measure (cm): 99 cm Weight: 243 lbs 11/04/2017 Blood Pressure 1: 136/68 Code: 8480-6 BMI: 38.2 Code: 07040-0 Heart Rate 1: 61 bpm Height: 5'7" SpO2: 98% Weight: 244 lbs 10/07/2017 Blood Pressure 1: 150/70 Code: 8480-6 BMI: 39.5 Code: 73100-8 Heart Rate 1: 65 bpm Height: 5'7" SpO2: 97% Weight: 252 lbs 06/03/2017 Blood Pressure 1: 140/70 Code: 8480-6 BMI: 37.9 Code: 75397-7 Heart Rate 1: 66 bpm Height: 5'7" SpO2: 96% Weight: 242 lbs 03/19/2017 Blood Pressure 1: 136/82 Code: 8480-6 BMI: 38.8 Code: 77493-7 Heart Rate 1: 58 bpm Height: 5'7" SpO2: 94% Weight: 247 lbs 8 oz 01/21/2017 Blood Pressure 1: 136/74 Code: 8480-6 BMI: 39.1 Code: 72559-8 Heart Rate 1: 58 bpm Height: 5'7" SpO2: 97% Weight: 249 lbs 8 oz 12/04/2016 Blood Pressure 1: 136/72 Code: 8480-6 Heart Rate 1: 55 bpm Height: 5'7" SpO2: 99% Weight: 11/16/2016 Blood Pressure 1: 124/76 Code: 8480-6 BMI: 39.2 Code: 28156-3 Heart Rate 1: 62 bpm Height: 5'7" SpO2: 96% Waist Measure (cm): 104 cm Weight: 250 lbs 11/14/2016 Blood Pressure 1: 152/60 Code: 8480-6 BMI: 39.8 Code: 04211-6 Heart Rate 1: 63 bpm Height: 5'7" SpO2: 94% Weight: 254 lbs 09/17/2016 Blood Pressure 1: 138/70 Code: 8480-6 BMI: 40.3 Code: 84726-1 Heart Rate 1: 60 bpm Height: 5'7" SpO2: 96% Weight: 257 lbs 08/03/2016 Blood Pressure 1: 148/78 Code: 8480-6 BMI: 39.9 Code: 80965-9 Heart Rate 1: 50 bpm Height: 5'7" SpO2: 97% Weight: 255 lbs 07/25/2016 Blood Pressure 1: 130/68 Code: 8480-6 BMI: 39.9 Code: 94087-4 Heart Rate 1: 61 bpm Height: 5'7" SpO2: 95% Weight: 255 lbs 03/22/2016 Blood Pressure 1: 136/76 Code: 8480-6 BMI: 39.0 Code: 65828-1 Heart Rate 1: 60 bpm Height: 5'7" SpO2: 98% Weight: 249 lbs 01/12/2016 Blood Pressure 1: 146/76 Code: 8480-6 BMI: 37.8 Code: 77083-9 Heart Rate 1: 59 bpm Height: 5'7" SpO2: 98% Weight: 241 lbs 8 oz 10/13/2015 Blood Pressure 1: 136/72 Code: 8480-6 BMI: 37.6 Code: 73973-4 Heart Rate 1: 70 bpm Height: 5'7" SpO2: 99% Weight: 240 lbs 09/13/2015 Blood Pressure 1: 140/80 Code: 8480-6 BMI: 37.2 Code: 97032-2 Heart Rate 1: 64 bpm Height: 5'7" SpO2: 97% Weight: 237 lbs 8 oz 07/05/2015 Blood Pressure 1: 170/84 Code: 8480-6 Blood Pressure 1: 130/70 Code: 8480-6 BMI: 35.9 Code: 87412-8 Heart Rate 1: 67 bpm Height: 5'7" [...] No ne Annual Medicare Wellness Exam Depres rkystle (last 6 months) some of the time 11/16/2016 None Annual Medicare Wellness Exam Depres krystle or Hopelessness almost never 11/16/2016 None Annual Medicare Wellness Exam Descri be Your Health excellent 11/16/2016 Non e Annual Medicare Wellness Exam Exerci se Habits does not exercise 11/16/2016 None Annual Medicare Wellness Exam Jamie velasquez Stress has problems coping 11/16/2016 None Annual [...] Encounters Encounter Performer Loca tion Codes Date ([id number]) [id number] EST. P ATIENT, LEVEL IV Diagnosis: Essential (primary) hypertension[ICD10: I10] Diagnosis: Gastro-esophageal reflux disease without esophagitis[ICD10: K21.9] Diagnosis: Mixed hyperlipidemia[ICD10: E78.2] Diagnosis: Impaired fasting glucose[ICD10: R73.01] [facility] CPT-4: 40548 02/23/2019 ([id number]) 16357 EST. P ATIENT, LEVEL III Diagnosis: Cough[ICD10: R05] Diagnosis: Acute upper respiratory infection, unspecified[ICD10: J06.9] Amanda Espinosa MD, [facility] CPT-4: 22235 10/03/2018 ([id number]) 94661 EST. P ATIENT, LEVEL IV Diagnosis: Essential (primary) hypertension[ICD10: I10] Diagnosis: Mixed hyperlipidemia[ICD10: E78.2] Diagnosis: Other allergic rhinitis[ICD10: J30.89] Kathy [facility] MD, [facility] CPT-4: 26950 08/25/2018 [id number] EST. PATIENT, LEVEL III Diagnosis: Other pruritus[ICD10: L29.8] Diagnosis: Allergic contact dermatitis due to plants, except food[ICD10: L23.7] Alba Espinosa MD, [facility] CPT-4: 66788 06/16/2018 ([id number]) 70822 EST. P ATIENT, LEVEL IV Diagnosis: Essential (primary) hypertension[ICD10: I10] Diagnosis: Allergic dermatitis of left upper eyelid[ICD10: H01.114] Diagnosis: Allergic rhinitis due to pollen[ICD10: J30.1] [facility] CPT-4: 26545 04/24/2018 ([id number]) 04295 EST. P ATIENT, LEVEL IV Diagnosis: Essential (primary) hypertension[ICD10: I10] Diagnosis: Mixed hyperlipidemia[ICD10: E78.2] Diagnosis: Actinic keratosis[ICD10: L57.0] Kathy [facility]osa MD, [facility] CPT-4: 75184 11/04/2017 ([id number]) 59788 EST. P ATIENT, LEVEL IV Diagnosis: Essential (primary) hypertension[ICD10: I10] Diagnosis: Cervicalgia[ICD10: M54.2] Diagnosis: Myalgia[ICD10: M79.1] Kathy Espinosa MD, [facility] CPT-4: 06900 10/07/2017 ([id number]) 82529 EST. P ATIENT, LEVEL IV Diagnosis: Essential (primary) hypertension[ICD10: I10] Diagnosis: Major depressive disorder, recurrent, mild[ICD10: F33.0] Diagnosis: Generalized anxiety disorder[ICD10: F41.1] [facility] CPT-4: 99435 06/03/2017 ([id number]) 18797 EST. P ATIENT, LEVEL IV Diagnosis: Essential (primary) hypertension[ICD10: I10] Diagnosis: Mixed hyperlipidemia[ICD10: E78.2] Diagnosis: Low back pain[ICD10: M54.5] Kathy Espinosa MD, [facility] CPT-4: 20521 03/19/2017 ([id number]) 50138 EST. P ATIENT, LEVEL III Diagnosis: Pain in right lower leg[ICD10: M79.661] Diagnosis: Localized edema[ICD10: R60.0] Diagnosis: Contusion of right lower leg, initial encounter[ICD10: S80.11XA] Amanda Espinosa MD, [facility] CPT-4: 98549 01/21/2017 ([id number]) 30615 EST. P ATIENT, LEVEL IV Diagnosis: Mixed hyperlipidemia[ICD10: E78.2] Diagnosis: Major depressive disorder, recurrent, moderate[ICD10: F33.1] Kathy [facility] MD, [facility] CPT-4: 65164 12/04/2016 ([id number]) 33106 EST. P ATIENT, LEVEL IV Diagnosis: Mixed hyperlipidemia[ICD10: E78.2] Diagnosis: Major depressive disorder, recurrent, mild[ICD10: F33.0] Diagnosis: Generalized anxiety disorder[ICD10: F41.1] Diagnosis: Essential (primary) hypertension[ICD10: I10] Diagnosis: Chronic obstructive pulmonary disease with (acute) exacerbation[ICD10: J44.1] Kathy [facility]osa MD, [facility] CPT-4: 85828 11/14/2016 [id number] EST. PATIENT, LEVEL III Diagnosis: Acute laryngopharyngitis[ICD10: J06.0] Diagnosis: Other allergic rhinitis[ICD10: J30.89] Alba Espinosa MD, [facility] CPT-4: 48094 09/17/2016 [id number] EST. PATIENT, LEVEL III Diagnosis: Contusion of right lower leg, initial encounter[ICD10: S80.11XA] Alba Espinosa MD, [facility] CPT-4: 44844 08/03/2016 ([id number]) 80546 EST. P ATIENT, LEVEL IV Diagnosis: Essential (primary) hypertension[ICD10: I10] Diagnosis: Mixed hyperlipidemia[ICD10: E78.2] Diagnosis: Acute recurrent maxillary sinusitis[ICD10: J01.01] Diagnosis: Chronic obstructive pulmonary disease with (acute) exacerbation[ICD10: J44.1] Kathy Espinosa MD, [facility] CPT-4: 23844 07/25/2016 ([id number]) 42939 EST. P ATIENT, LEVEL IV Diagnosis: Essential (primary) hypertension[ICD10: I10] Diagnosis: Gastro-esophageal reflux disease without esophagitis[ICD10: K21.9] Diagnosis: Generalized anxiety disorder[ICD10: F41.1] Diagnosis: Major depressive disorder, recurrent, mild[ICD10: F33.0] Kathy Espinosa MD, [facility] CPT-4: 21833 03/22/2016 ([id number]) [id number] EST. P ATIENT, LEVEL IV Diagnosis: Essential (primary) hypertension[ICD10: I10] Diagnosis: Coronary angioplasty status[ICD10: Z98.61] Diagnosis: Hyperlipidemia, unspecified[ICD10: E78.5] Diagnosis: Major depressive disorder, recurrent, moderate[ICD10: F33.1] Kathy Esipnosa MD, [facility] CPT-4: 32191 01/12/2016 ([id number]) 28393 EST. P ATIENT, LEVEL IV Diagnosis: Essential (primary) hypertension[ICD10: I10] Diagnosis: Gastro-esophageal reflux disease without esophagitis[ICD10: K21.9] Kathy Espinosa MD, [facility] CPT-4: 16160 10/13/2015 ([id number]) 68965 EST. P ATIENT, LEVEL IV Diagnosis: Gastro-esophageal reflux disease without esophagitis[ICD10: K21.9] Diagnosis: Essential (primary) hypertension[ICD10: I10] Diagnosis: Coronary angioplasty status[ICD10: Z98.61] Kathy Espinosa MD, [facility] CPT-4: 26949 09/13/2015 ([id number]) [facility] , [facility] - LEVEL 4 Diagnosis: Hyperlipidemia, unspecified[ICD10: E78.5] Diagnosis: Personal history of other diseases of the circulatory system[ICD10: Z86.79] Diagnosis: Unspecified osteoarthritis, unspecified site[ICD10: M19.90] Diagnosis: Polyneuropathy, unspecified[ICD10: G62.9] Kathy Espinosa MD, C CPT-4: 46542 07/05/2015 Plan of Care Planned Activity Notes [...] walks/rides. 02/23/2019 Appointment: [phone] [facility] [place] (15 min) Moderate 02/23/2019 Patient Education: Patient Medication Summary Completed 02/23/2019 Patient Education: Cholesterol Management Completed 02/23/2019 Appointment: [phone] [place] (15 min) Moderate 02/06/2019 Visit Plan: URI - Pt advised to inc rease fluids, vitamin C. Discussed natural and expected course of this diagnosis and need to alert me if symptoms do not follow expected course, or if any worse. RX sent to patient's pharmacy. 10/03/2018 Appointment: Amanda Romerol: [facility]9 [phone] (30 min) Complex 10/03/2018 Patient Education: Patient Medication Summary Completed 10/03/2018 Visit Plan: Hypertension - nehal akins - continue with current medications, continue [...] clinic 08/25/2018 Appointment: Kathy Espinosa WPtel: [phone] [facility] (15 min) Moderate 08/25/2018 Patient Education: Patient [...] worsen. 06/16/2018 Appointment: Alba Fajardo WPtel: [phone] [phone] (15 min) Moderate 06/16/2018 Patient Education: Patient Medication Summary Completed 06/16/2018 Patient Education: Poison Ashley Completed 06/16/2018 Appointment: Amanda Romero WPtel: [phone] [phone] [place] (15 min) Moderate 05/23/2018 Appointment: Kathy Espinosa WPtel: [phone] [facility] [place] (15 min) Moderate 05/15/2018 Visit Plan: [...] office 04/24/2018 Appointment: Kathy Espinosa WPtel: [phone] [phone] [place] (15 min) Moderate 04/24/2018 Patient Education: Patient Medication Summary Completed 04/24/2018 Appointment: Kathy Espinosa WPtel: [phone] [phone] [place] (15 min) Moderate 02/25/2018 Appointment: Kathy Espinosa WPtel: [facility]5 [facility] [place] (15 min) Moderate 02/20/2018 Appointment: Kathy Espinosa WPtel: [facility]5 [facility] [place] (15 min) Moderate 02/13/2018 Patient Education: [...] care surrogate. 11/19/2017 Appointment: Amanda Romero WPtel: [address] [place], [place] [phone] [facility] - Annual Wellness Visit 11/19/2017 Patient Education: Patient Medication Summary Completed 11/19/2017 Visit Plan: Hypertension - well con emilied [...] - one lesion each hand and on sabianist x 3 lesions and 2 lesions right sabianist 11/04/2017 Appointment: Kathy Espinosa WPtel: [facility]5 [facility] (15 min) Moderate 11/04/2017 Patient Education: Patient [...] two weeks. 10/07/2017 Appointment: Kathy Espinosa WPtel: [address] [place], [place] [phone] (15 min) Moderate 10/07/2017 Patient Education: Patient [...] flu shots 06/03/2017 Appointment: Kathy Espinosa WPtel: [address] [place], [place] [phone] (15 min) Moderate 06/03/2017 Patient Education: Patient Medication Summary Completed 06/03/2017 Patient Education: Obesity Completed 06/03/2017 Appointment: Kathy Espinosa WPtel: [facility] (15 min) Moderate 05/22/2017 Visit Plan: Hypertension [...] back 03/19/2017 Appointment: Kathy Espinosa WPtel: [phone] [phone] [place] (15 min) Moderate 03/19/2017 Patient Education: [...] doppler. 01/21/2017 Appointment: Amanda [facility]ero [facility]Ptel: [phone] [place] (15 min) Moderate 01/21/2017 Patient Education: [...] medications. 12/04/2016 Appointment: [facility]el[phone] [facility] [place] (15 min) Moderate 12/04/2016 Patient [...] [facility] [facility] - Annual Wellness Visit 11/16/2016 Patient [...] concerns. 11/14/2016 Appointment: [facility]Ptel[facility] [phone] [facility] (15 min) Moderate 11/14/2016 Patient Education: Patient Medication Summary Completed 11/14/2016 Patient Education: Obesity Completed 11/14/2016 Appointment: Kathy Espinosa WPtel: [phone] [phone] (15 min) Moderate 10/24/2016 Visit Plan: URI [...] or pain. 08/03/2016 Appointment: Amanda Romero WPtel: [phone] [phone] (15 min) Moderate 08/03/2016 Patient Education: Patient [...] symptoms do not show improvement. 07/25/2016 Appointment: FranciscaKathy WPtel: [facility] (15 min) Moderate 07/25/2016 Patient Education: Patient [...] current medications. 01/12/2016 Appointment: Kathy Espinosa WPtel: [phone] [phone] (15 min) Moderate 01/12/2016 Patient Education: Patient Medication Summary Completed 01/12/2016 Patient Education: Obesity Completed 01/12/2016 Patient Education: Hypertension Completed 01/12/2016 Appointment: Kathy Espinosa WPtel: [facility]0 [phone] (15 min) Moderate 12/01/2015 Visit Plan: Hypertension [...] improving. 10/13/2015 Appointment: Kathy Espinosa WPtel: [facility]4 [phone] (15 min) Moderate 10/13/2015 Patient Education: Patient [...] TWICE DAILY 09/13/2015 Appointment: Kathy Espinosa WPtel: [phone] [phone] [place] (15 min) Moderate 09/13/2015 Patient Education: Patient Medication Summary Completed 09/13/2015 Patient Education: Hypertension Completed 09/13/2015 Appointment: Kathy Espinosa WPtel: [address] (15 min) Moderate 08/09/2015 Visit Plan: Hyperlipidemia [...] and lipitor. 07/05/2015 Appointment: Kathy Espinosa WPtel: [phone] [facility] New Patient 07/05/2015 Patient Education: Patient Medication [...] we will send a refer ral to [facility] for physical therapy for your neck [...] - one lesion each hand and on sabianist x 3 lesions and 2 lesions right sabianist
--- OUTSIDE RECORDS SUMMARY | 2020-04-12 22:18 | XMS REPORT | CCD ---
Author Author Joaquín Espinosa Organization [facility] Address [address] [place] [address] Phone Care Team Providers Care Contract Specialist Name Role Phone PP Unavailable CCM Unavailable Summary Purpose Interface Exchange Insurance Providers Payer name Policy type / Coverage type Covered democrat ID Effective Begin Date Effective End Date WPS Medicare Part B Medicare Part B [id number] Unknown Cigna Medicare Part B 36 [id number] Unknown Family history Grandfather Diagnosis Age At Onset lung cancer Unknown Runs in the family Diagnosis Age At Onset Cancer Unknown Grandfather Diagnosis Age At Onset Cancer Unknown Social History Social History Element Codes Description Effective Dates Marital status Unknown M arried Nitza 07/05/2015 Number of children Unknown 3 07/05/2015 Employment Unknown Retir ed 07/05/[address]: 0890186 Quit over 10 years ago 07/05/[address]: 714789 Currently drinks alcohol beer 07/05/2015 Allergies, Adverse [...] ICD-10: J30.1 Active 04/24/2018 Unknown Encounter for [facility] adult medical examination without abnormal findings [...] Fill Instructions naproxen 500 mg tablet RxNorm: 865071 1 TABLET(S) BID NEEDED FOR PAIN 01/26/2019 07/24/2019 Ac tive Crestor 10 mg tablet RxNorm: 394139 1 Tablet(s) PO every other day 11/03/2018 01/26/2020 Ac tive Zithromax Z-Ralph 250 mg tablet RxNorm: 143098 1 Tablet(s) PO UD 10/13/2018 10/12/2018 Inactive Zithromax Z-Ralph 250 mg tablet RxNorm: 444582 1 Tablet(s) PO UD 10/13/2018 10/17/2018 Inactive escitalopram 20 mg t ablet RxNorm: 658966 Tablet(s) TAKE ONE & ONE-HALF TABLETS BY MOUTH IN THE EVENING 10/07/2018 No Stop Date Active Keflex 500 mg capsule RxNorm: 038421 1 Capsule(s) PO TID 10/03/2018 10/09/2018 Inactive Kenalog 40 mg/mL jenni pension for injection RxNorm: 2483845 Milliliter(s) Inj 10/03/2018 10/03/2018 In active pantoprazole 40 mg t ablet,delayed release RxNorm: 539154 1 Tablet(s) BID 09/24/2018 12/17/2019 Ac tive naproxen 500 mg tablet RxNorm: 403742 1 Tablet(s) BID as needed for pain 09/24/2018 01/25/2019 In active Kenalog 40 mg/mL jenni pension for injection RxNorm: 9965432 1 Milliliter(s) Inj 08/25/2018 08/25/2018 In active pantoprazole 40 mg t ablet,delayed release RxNorm: 640251 TAKE 1 TABLET BY MOUT H TWICE DAILY 06/24/2018 09/23/2018 Inactive betamethasone diprop ionate 0.05 % topical cream RxNorm: 302500 1 Application TOP BID as needed 06/16/2018 No Stop Date Active prednisone 20 mg tablet RxNorm: 078184 2 Tablet(s) PO daily 06/16/2018 06/20/2018 Inactive Kenalog 40 mg/mL jenni pension for injection RxNorm: 3077519 1 Milliliter(s) Inj 06/16/2018 06/16/2018 In active naproxen 500 mg tablet RxNorm: 377739 TAKE 1 TABLET BY MOUTH TWICE DAILY NE EDED FOR PAIN 05/13/2018 09/23/2018 Inactive naproxen 500 mg tablet RxNorm: 761488 TAKE ONE TABLET BY MOUTH TWICE DAILY NEEDED FOR PAIN 01/07/2018 05/12/2018 Inactive escitalopram 20 mg t ablet RxNorm: 050079 TAKE ONE & ONE-HALF T ABLETS BY MOUTH IN THE EVENING 12/16/2017 10/06/2018 Inactive pantoprazole 40 mg t ablet,delayed release RxNorm: 583146 1 Tablet(s) PO BID 11/21/2017 03/20/2018 In active Crestor 10 mg tablet RxNorm: 664973 1 Tablet(s) PO every other day 10/07/2017 11/02/2018 In active naproxen 500 mg tablet RxNorm: 760601 TAKE ONE TABLET BY MOUTH TWICE DAILY NEEDED FOR PAIN 06/27/2017 12/23/2017 Inactive escitalopram 20 mg t ablet RxNorm: 116603 1 Tablet(s) PO QPM 06/03/2017 05/28/2018 Inactive pantoprazole 40 mg t ablet,delayed release RxNorm: 559866 1 Tablet(s) PO BID 03/19/2017 05/07/2017 In active naproxen 500 mg tablet RxNorm: 908179 TAKE ONE TABLET BY MOUTH TWICE DAILY NEEDED FOR PAIN 02/11/2017 06/10/2017 Inactive naproxen 500 mg tablet RxNorm: 994245 TAKE ONE TABLET BY MOUTH TWICE DAILY NEEDED FOR PAIN 12/14/2016 02/10/2017 Inactive escitalopram 20 mg t ablet RxNorm: 264604 1.5 Tablet(s) PO QPM 12/04/2016 06/02/2017 Inactive buspirone 5 mg tablet RxNorm: 300090 1 Tablet(s) PO BID 11/14/2016 12/03/2016 Inactive amoxicillin 500 mg c apsule RxNorm: 403338 1 Capsule(s) PO TID 09/17/2016 09/26/2016 Inactive prednisone 20 mg tablet RxNorm: 440155 2 Tablet(s) PO daily 09/17/2016 09/21/2016 Inactive escitalopram 20 mg t ablet RxNorm: 890141 1 Tablet(s) PO QPM 08/28/2016 12/03/2016 Inactive naproxen 500 mg tablet RxNorm: 244201 TAKE ONE TABLET BY MOUTH TWICE DAILY NEEDED FOR PAIN 08/01/2016 11/28/2016 Inactive sulfamethoxazole 800 mg-trimethoprim 160 mg tablet RxNorm: 973480 1 Tablet(s) PO BID 07/25/2016 07/31/2016 Inactive Kenalog 40 mg/mL jenni pension for injection RxNorm: 1977519 Milliliter(s) Inj 07/25/2016 07/25/2016 In active Symbicort 80 mcg-4.5 mcg/actuation HFA aerosol inhaler RxNorm: 1546649 2 INH QHS 07/25/2016 09/11/2016 In active escitalopram 20 mg t ablet RxNorm: 070859 1 Tablet(s) PO QPM 03/22/2016 08/27/2016 Inactive alprazolam 0.5 mg di sintegrating tablet RxNorm: 651815 1 Tablet(s) PO TID as needed anxiety 03/22/2016 11/13/2016 Inactive atorvastatin 20 mg t ablet RxNorm: 524842 1 Tablet(s) PO daily 01/12/2016 10/06/2017 Inactive Lexapro 10 mg tablet RxNorm: 746507 1 Tablet(s) PO QPM 01/12/2016 03/21/2016 Inactive pantoprazole 40 mg t ablet,delayed release RxNorm: 609727 1 Tablet(s) PO daily 10/13/2015 11/11/2015 In active pantoprazole 40 mg t ablet,delayed release RxNorm: 494297 1 Tablet(s) PO BID 09/13/2015 10/12/2015 In active naproxen 500 mg tablet RxNorm: 846716 Tablet(s) PO BID as needed for pain 07/05/2015 07/31/2016 In active folic acid 400 mcg t ablet RxNorm: 024299 1 Tablet(s) PO daily No Start Date Active Vitamin B12 500 mcg RxNorm: 2000 Microgram(s) PO daily No Start Date Active Toprol XL 50 mg tabl et,extended release RxNorm: 210265 1 Tablet(s) PO daily No Start Date Active Tudorza Pressair 400 mcg/actuation breath activated RxNorm: 5029543 1 INH QAM No Start Date Active aspirin 81 mg capsul e,delayed release RxNorm: 299430 1 Capsule(s) PO daily No Start Date Active Incruse Ellipta 62.5 mcg/actuation powder for inhalation RxNorm: 7860194 1 INH daily No Start Date Active clopidogrel 75 mg ta blet RxNorm: 002010 1 Tablet(s) PO daily No Start Date Active Symbicort 80 mcg-4.5 mcg/actuation HFA aerosol inhaler RxNorm: 7561155 2 INH QHS No Start Date 07/24/2016 Inactive pantoprazole 40 mg t ablet,delayed release RxNorm: 091936 1 Tablet(s) PO daily No Start Date 09/12/2015 Inactive atorvastatin 40 mg t ablet RxNorm: 851078 1 Tablet(s) PO daily No Start Date 01/11/2016 Inactive furosemide 20 mg tablet RxNorm: 419134 1 Tablet(s) PO daily No Start Date 09/11/2016 Inactive naproxen 500 mg tablet RxNorm: 917181 Tablet(s) PO TID No Start Date 07/04/2015 Inactive Medication Administered Medication Codes Instruc tions Start Date Status Kenalog 40 mg/mL suspension for injection RxNorm: 5698832 Milliliter 10/03/2018 No longer Active Kenalog 40 mg/mL suspension for injection RxNorm: 1167243 1Milliliter 08/25/2018 N o longer Active Kenalog 40 mg/mL suspension for injection RxNorm: 1839234 1Milliliter 06/16/2018 N o longer Active Kenalog 40 mg/mL suspension for injection RxNorm: 6733189 Milliliter 07/25/2016 No longer Active Immunizations Vaccine [...] 29.4 pg 02/23/2019 Cbc With Differential Ord2 [place]% 6.9 % 02/23/2019 Cbc With Differential Ord2 [...] 1.32 K/ul 02/23/2019 Cbc With Differential Ord2 [place] ABS# 0.3 K/ul 02/23/2019 Cbc With Differential Ord2 Eos ABS# 0.0 K/ul 02/23/2019 Cbc With Differential Ord2 Baso ABS# 0.0 K/ul 02/23/2019 %Hba1C Svn319 % HbA1c 22019-3 6.1 % 02/23/2019 %Hba1C Tqk787 Gluc Ave 128 mg/dL 02/23/2019 Lipid Ord30 CHOL 129 mg/dL 02/23/2019 Lipid Ord30 HDL 36.0 mg/dl 02/23/2019 Lipid Ord30 TRIG 133 mg/dL 02/23/2019 Lipid Ord30 LDL 66 mg/dL 02/23/2019 Lipid Ord30 C/HDL 3.6 Ratio 02/23/2019 Comp Metabolic Dfg834 NA 140 mEq/L 02/23/2019 Comp Metabolic Bdp581 K 4.3 mEq/L 02/23/2019 Comp Metabolic Qis741 CL 104 mEq/L 02/23/2019 Comp Metabolic Ixh659 CO2 28.0 mEq/L 02/23/2019 Comp Metabolic Gyf381 AN ION GAP 12 02/23/2019 Comp Metabolic Lco666 GL UCOSE 115 mg/dL 02/23/2019 Comp Metabolic Sts548 Cr eat 1.2 mg/dL 02/23/2019 Comp Metabolic Sai212 eG FR 62 ml/min/1.73m2 02/23 Comp Metabolic Jfu213 BUN 17 mg/dL 02/23/2019 Comp Metabolic Qnp661 B/ C Ratio 14.0 Ratio 02/23/2019 Comp Metabolic Kvh860 CA LCIUM 9.2 mg/dL 02/23/2019 Comp Metabolic Kxb284 AL K PHOS 80 U/L 02/23/2019 Comp Metabolic Kab434 T(SGOT) 16 U/L 02/23/2019 Comp Metabolic Hml428 AL T(SGPT) 15 U/L 02/23/2019 Comp Metabolic Vfx327 BI LI T 1.0 mg/dL 02/23/2019 Comp Metabolic Apl261 AL BUMIN 4.1 g/dL 02/23/2019 Comp Metabolic Jom765 TP RO 6.5 g/dL 02/23/2019 Comp Metabolic Mef066 GL OB 2.4 g/dL 02/23/2019 Comp Metabolic Zia524 A/ G Ratio 1.7 Ratio 02/23/2019 Comp Metabolic Rmr536 Os mo 282 mOsmo 02/23/2019 Total Psa [...] 30.1 pg 08/20/2018 Cbc With Differential Ord2 [place]% 8.0 % 08/20/2018 Cbc With Differential Ord2 [...] 1.41 K/ul 08/20/2018 Cbc With Differential Ord2 [place] ABS# 0.4 K/ul 08/20/2018 Cbc With Differential Ord2 Eos ABS# 0.1 K/ul 08/20/2018 Cbc With Differential Ord2 Baso ABS# 0.0 K/ul 08/20/2018 Tsh Ord6 TSH (3rd IS) 2.07 uIU/mL 08/20/2018 %Hba1C Uhw001 % HbA1c 15790-1 6.0 % 08/20/2018 %Hba1C Kwy127 Gluc Ave 126 mg/dL 08/20/2018 Comp Metabolic Dfi979 NA 142 mEq/L 08/20/2018 Comp Metabolic Imv928 K 4.2 mEq/L 08/20/2018 Comp Metabolic Dqa948 CL 105 mEq/L 08/20/2018 Comp Metabolic Iyl370 CO2 30.0 mEq/L 08/20/2018 Comp Metabolic Pzq003 AN ION GAP 11 08/20/2018 Comp Metabolic Gyz047 GL UCOSE 132 mg/dL 08/20/2018 Comp Metabolic Rmj771 Cr eat 1.3 mg/dL 08/20/2018 Comp Metabolic Fmk345 eG FR 58 ml/min/1.73m2 08/20 Comp Metabolic Rqz932 BUN 19 mg/dL 08/20/2018 Comp Metabolic Fxs868 B/ C Ratio 14.8 Ratio 08/20/2018 Comp Metabolic Yrn609 CA LCIUM 9.2 mg/dL 08/20/2018 Comp Metabolic Uio945 AL K PHOS 72 U/L 08/20/2018 Comp Metabolic Wqa213 T(SGOT) 21 U/L 08/20/2018 Comp Metabolic Jrp457 AL T(SGPT) 20 U/L 08/20/2018 Comp Metabolic Lkl790 BI LI T 1.1 mg/dL 08/20/2018 Comp Metabolic Gpi295 AL BUMIN 4.3 g/dL 08/20/2018 Comp Metabolic Dfs362 TP RO 6.6 g/dL 08/20/2018 Comp Metabolic Qhp588 GL OB 2.3 g/dL 08/20/2018 Comp Metabolic Odt770 A/ G Ratio 1.9 Ratio 08/20/2018 Comp Metabolic Azm857 Os mo 287 mOsmo 08/20/2018 %Hba1C Bmh958 % HbA1c 14072-3 5.9 % 11/20/2017 %Hba1C Rrj062 Gluc Ave 123 mg/dL 11/20/2017 B12 Zcy325 B12 1130.00 pg/ml 11/19/2017 Total Psa Ord10 [...] 29.2 pg 11/19/2017 Cbc With Differential Ord2 [place]% 8.6 % 11/19/2017 Cbc With Differential Ord2 [...] 1.37 K/ul 11/19/2017 Cbc With Differential Ord2 [place] ABS# 0.4 K/ul 11/19/2017 Cbc With Differential Ord2 Eos ABS# 0.0 K/ul 11/19/2017 Cbc With Differential Ord2 Baso ABS# 0.0 K/ul 11/19/2017 Comp Metabolic Wvj828 NA 142 mEq/L 11/19/2017 Comp Metabolic Oqk479 K 4.3 mEq/L 11/19/2017 Comp Metabolic Nle222 CL 104 mEq/L 11/19/2017 Comp Metabolic Fhl515 CO2 29.0 mEq/L 11/19/2017 Comp Metabolic Ixo773 AN ION GAP 13 11/19/2017 Comp Metabolic Gca119 GL UCOSE 132 mg/dL 11/19/2017 Comp Metabolic Wca041 Cr eat 1.2 mg/dL 11/19/2017 Comp Metabolic Yos274 eG FR 63 ml/min/1.73m2 11/19 Comp Metabolic Wui770 BUN 20 mg/dL 11/19/2017 Comp Metabolic Nwq659 B/ C Ratio 16.8 Ratio 11/19/2017 Comp Metabolic Qum237 CA LCIUM 9.3 mg/dL 11/19/2017 Comp Metabolic Mkw106 AL K PHOS 74 U/L 11/19/2017 Comp Metabolic Rsf983 T(SGOT) 15 U/L 11/19/2017 Comp Metabolic Scp096 AL T(SGPT) 15 U/L 11/19/2017 Comp Metabolic Iwr195 BI LI T 0.9 mg/dL 11/19/2017 Comp Metabolic Rni294 AL BUMIN 4.3 g/dL 11/19/2017 Comp Metabolic Egf224 TP RO 6.6 g/dL 11/19/2017 Comp Metabolic Ije017 GL OB 2.3 g/dL 11/19/2017 Comp Metabolic Kcq004 A/ G Ratio 1.9 Ratio 11/19/2017 Comp Metabolic Qcx514 Os mo 288 mOsmo 11/19/2017 Tsh Ord6 [...] 30.2 pg 11/16/2016 Cbc With Differential Ord2 [place]% 10.2 % 11/16/2016 Cbc With Differential Ord2 [...] 1.46 K/ul 11/16/2016 Cbc With Differential Ord2 [place] ABS# 0.5 K/ul 11/16/2016 Cbc With Differential Ord2 Eos ABS# 0.1 K/ul 11/16/2016 Cbc With Differential Ord2 Baso ABS# 0.0 K/ul 11/16/2016 Comp Metabolic Szc193 NA 141 mEq/L 11/16/2016 Comp Metabolic Oxn189 K 4.2 mEq/L 11/16/2016 Comp Metabolic Zda566 CL 106 mEq/L 11/16/2016 Comp Metabolic Odp748 CO2 30.0 mEq/L 11/16/2016 Comp Metabolic Evc108 AN ION GAP 9 11/16/2016 Comp Metabolic Ogg382 GL UCOSE 118 mg/dL 11/16/2016 Comp Metabolic Ihf698 Cr eat 1.2 mg/dL 11/16/2016 Comp Metabolic Btv884 eG FR 61 ml/min/1.73m2 11/16 Comp Metabolic Pws418 BUN 22 mg/dL 11/16/2016 Comp Metabolic Niw461 B/ C Ratio 17.7 Ratio 11/16/2016 Comp Metabolic Yrd580 CA LCIUM 9.2 mg/dL 11/16/2016 Comp Metabolic Zgf291 AL K PHOS 91 U/L 11/16/2016 Comp Metabolic Hbq341 T(SGOT) 16 U/L 11/16/2016 Comp Metabolic Utu053 AL T(SGPT) 16 U/L 11/16/2016 Comp Metabolic Pam211 BI LI T 0.9 mg/dL 11/16/2016 Comp Metabolic Sgq988 AL BUMIN 4.1 g/dL 11/16/2016 Comp Metabolic Kqa169 TP RO 6.4 g/dL 11/16/2016 Comp Metabolic Mci281 GL OB 2.3 g/dL 11/16/2016 Comp Metabolic Fqt757 A/ G Ratio 1.8 Ratio 11/16/2016 Comp Metabolic Cin134 Os mo 286 mOsmo 11/16/2016 Lipid Ord30 [...] 1.8 mg/dL 08/01/2015 B Type Natriuretic Peptide Nin4944 B-LABOR AND DELIVERY NURSE 13.10 pg/ml 08/01/2015 Lipid Ord30 CHOL 188 [...] Ord2 RDW 14.7 % 08/01/2015 Comp Metabolic Bhs038 NA 138 mEq/L 08/01/2015 Comp Metabolic Hfl273 K 4.2 mEq/L 08/01/2015 Comp Metabolic Nfv345 CL 104 mEq/L 08/01/2015 Comp Metabolic Owa003 CO2 27.0 mEq/L 08/01/2015 Comp Metabolic Usq195 AN ION GAP 11 08/01/2015 Comp Metabolic Rku859 GL UCOSE 118 mg/dL 08/01/2015 Comp Metabolic Cga232 Cr eat 1.2 mg/dL 08/01/2015 Comp Metabolic Sqg934 eG FR 66 ml/min/1.73m2 08/01 Comp Metabolic Mvk465 BUN 19 mg/dL 08/01/2015 Comp Metabolic Ioi686 B/ C Ratio 16.4 Ratio 08/01/2015 Comp Metabolic Ava105 CA LCIUM 8.7 mg/dL 08/01/2015 Comp Metabolic Tkm782 AL K PHOS 85 U/L 08/01/2015 Comp Metabolic Bft797 T(SGOT) 16 U/L 08/01/2015 Comp Metabolic Rhq327 AL T(SGPT) 20 U/L 08/01/2015 Comp Metabolic Wrg708 BI LI T 0.7 mg/dL 08/01/2015 Comp Metabolic Qry005 AL BUMIN 3.9 g/dL 08/01/2015 Comp Metabolic Uby711 TP RO 6.2 g/dL 08/01/2015 Comp Metabolic Tmb477 GL OB 2.4 g/dL 08/01/2015 Comp Metabolic Mzx446 A/ G Ratio 1.6 Ratio 08/01/2015 Comp Metabolic Lir381 Os mo 279 mOsmo 08/01/2015 Tsh Ord6 hTSH II 1.79 uIU/mL 08/01/2015 Sed Rate Ord21 ESR 1 mm/hr 08/01/2015 Tsh Ord6 hTSH II 2.43 uIU/mL 07/07/2015 Folate Ord36 Folate 7.62 ng/mL 07/07/2015 B12 Aub779 B12 228.00 pg/ml 07/07/2015 Review of Systems [...] Location: face 02/23/2019 on 3 on left baptist, 2 on right baptist and 1 each on dorsum of hands [...] Location: face 08/25/2018 on 3 on left baptist, 2 on right baptist and 1 each on dorsum of hands [...] Location: face 11/04/2017 on 3 on left baptist, 2 on right baptist and 1 each on dorsum of hands [...] CPT-4: J3301 08/25/2018 THER/PROPH/DIAG INJ SC/IM CPT-4: 32501 06/16/2018 TRIAMCINOLONE ACET I [place] NOS CPT-4: J3301 06/16/2018 PPPS, SUBSEQ VISIT CPT- 4: G0439 11/19/2017 DESTRUCT PREMALG LESION CPT-4: 28771 11/04/2017 DESTRUCT PREMALG LES 2-14 CPT-4: 03291 11/04/2017 PPPS, SUBSEQ VISIT CPT- 4: G0439 11/16/2016 THER/PROPH/DIAG INJ SC/IM CPT-4: 08096 07/25/2016 TRIAMCINOLONE ACET I [place] NOS CPT-4: J3301 07/25/2016 Vital Signs Date Vital 02/23/2019 Blood Pressure 1: 164/72 Code: 8480-6 BMI: 41.0 Code: 26855-2 Heart Rate 1: 46 bpm Height: 5'7" SpO2: 95% Weight: 262 lbs 10/03/2018 Blood Pressure 1: 134/74 Code: 8480-6 BMI: 40.1 Code: 62248-7 Heart Rate 1: 55 bpm Height: 5'7" SpO2: 97% Temperature: 36.7 (C ) / 98.1 (F) Weight: 256 lbs 08/25/2018 Blood Pressure 1: 128/68 Code: 8480-6 BMI: 39.8 Code: 91666-5 Heart Rate 1: 55 bpm Height: 5'7" SpO2: 97% Weight: 254 lbs 06/16/2018 Blood Pressure 1: 120/67 Code: 8480-6 BMI: 40.1 Code: 35623-2 Heart Rate 1: 83 bpm Height: 5'7" SpO2: 95% Weight: 256 lbs 04/24/2018 Blood Pressure 1: 134/76 Code: 8480-6 BMI: 39.3 Code: 81817-4 Heart Rate 1: 55 bpm Height: 5'7" SpO2: 95% Weight: 251 lbs 11/19/2017 Blood Pressure 1: 130/62 Code: 8480-6 BMI: 38.1 Code: 67300-6 Heart Rate 1: 73 bpm Height: 5'7" SpO2: 93% Waist Measure (cm): 99 cm Weight: 243 lbs 11/04/2017 Blood Pressure 1: 136/68 Code: 8480-6 BMI: 38.2 Code: 85012-1 Heart Rate 1: 61 bpm Height: 5'7" SpO2: 98% Weight: 244 lbs 10/07/2017 Blood Pressure 1: 150/70 Code: 8480-6 BMI: 39.5 Code: 30236-4 Heart Rate 1: 65 bpm Height: 5'7" SpO2: 97% Weight: 252 lbs 06/03/2017 Blood Pressure 1: 140/70 Code: 8480-6 BMI: 37.9 Code: 91774-8 Heart Rate 1: 66 bpm Height: 5'7" SpO2: 96% Weight: 242 lbs 03/19/2017 Blood Pressure 1: 136/82 Code: 8480-6 BMI: 38.8 Code: 52639-8 Heart Rate 1: 58 bpm Height: 5'7" SpO2: 94% Weight: 247 lbs 8 oz 01/21/2017 Blood Pressure 1: 136/74 Code: 8480-6 BMI: 39.1 Code: 54849-4 Heart Rate 1: 58 bpm Height: 5'7" SpO2: 97% Weight: 249 lbs 8 oz 12/04/2016 Blood Pressure 1: 136/72 Code: 8480-6 Heart Rate 1: 55 bpm Height: 5'7" SpO2: 99% Weight: 11/16/2016 Blood Pressure 1: 124/76 Code: 8480-6 BMI: 39.2 Code: 90582-6 Heart Rate 1: 62 bpm Height: 5'7" SpO2: 96% Waist Measure (cm): 104 cm Weight: 250 lbs 11/14/2016 Blood Pressure 1: 152/60 Code: 8480-6 BMI: 39.8 Code: 29748-2 Heart Rate 1: 63 bpm Height: 5'7" SpO2: 94% Weight: 254 lbs 09/17/2016 Blood Pressure 1: 138/70 Code: 8480-6 BMI: 40.3 Code: 61349-0 Heart Rate 1: 60 bpm Height: 5'7" SpO2: 96% Weight: 257 lbs 08/03/2016 Blood Pressure 1: 148/78 Code: 8480-6 BMI: 39.9 Code: 11170-4 Heart Rate 1: 50 bpm Height: 5'7" SpO2: 97% Weight: 255 lbs 07/25/2016 Blood Pressure 1: 130/68 Code: 8480-6 BMI: 39.9 Code: 50971-5 Heart Rate 1: 61 bpm Height: 5'7" SpO2: 95% Weight: 255 lbs 03/22/2016 Blood Pressure 1: 136/76 Code: 8480-6 BMI: 39.0 Code: 42156-4 Heart Rate 1: 60 bpm Height: 5'7" SpO2: 98% Weight: 249 lbs 01/12/2016 Blood Pressure 1: 146/76 Code: 8480-6 BMI: 37.8 Code: 01515-9 Heart Rate 1: 59 bpm Height: 5'7" SpO2: 98% Weight: 241 lbs 8 oz 10/13/2015 Blood Pressure 1: 136/72 Code: 8480-6 BMI: 37.6 Code: 85180-1 Heart Rate 1: 70 bpm Height: 5'7" SpO2: 99% Weight: 240 lbs 09/13/2015 Blood Pressure 1: 140/80 Code: 8480-6 BMI: 37.2 Code: 72441-0 Heart Rate 1: 64 bpm Height: 5'7" SpO2: 97% Weight: 237 lbs 8 oz 07/05/2015 Blood Pressure 1: 170/84 Code: 8480-6 Blood Pressure 1: 130/70 Code: 8480-6 BMI: 35.9 Code: 40814-2 Heart Rate 1: 67 bpm Height: 5'7" [...] Encounters Encounter Performer Loca tion Codes Date ([id number]) 85540 EST. P ATIENT, LEVEL IV Diagnosis: Essential (primary) hypertension[ICD10: I10] Diagnosis: Gastro-esophageal reflux disease without esophagitis[ICD10: K21.9] Diagnosis: Mixed hyperlipidemia[ICD10: E78.2] Diagnosis: Impaired fasting glucose[ICD10: R73.01] Kathy sEpinosa MD, [facility] CPT-4: 14353 02/23/2019 ([phone] [id number] EST. P ATIENT, LEVEL III Diagnosis: Cough[ICD10: R05] Diagnosis: Acute upper respiratory infection, unspecified[ICD10: J06.9] [facility] CPT-4: 56198 10/03/2018 [id number] [id number] EST. P ATIENT, LEVEL IV Diagnosis: Essential (primary) hypertension[ICD10: I10] Diagnosis: Mixed hyperlipidemia[ICD10: E78.2] Diagnosis: Other allergic rhinitis[ICD10: J30.89] [facility]: 30008 08/25/2018 98432 EST. PATIENT, LEVEL III Diagnosis: Other pruritus[ICD10: L29.8] Diagnosis: Allergic contact dermatitis due to plants, except food[ICD10: L23.7] Alba Espinosa MD, [facility] CPT-4: 68687 06/16/2018 ([id number]) 52179 EST. P ATIENT, LEVEL IV Diagnosis: Essential (primary) hypertension[ICD10: I10] Diagnosis: Allergic dermatitis of left upper eyelid[ICD10: H01.114] Diagnosis: Allergic rhinitis due to pollen[ICD10: J30.1] Kathy Espinosa MD, [facility] CPT-4: 13384 04/24/2018 ([id number]) 20954 EST. P ATIENT, LEVEL IV Diagnosis: Essential (primary) hypertension[ICD10: I10] Diagnosis: Mixed hyperlipidemia[ICD10: E78.2] Diagnosis: Actinic keratosis[ICD10: L57.0] Kathy Espinosa MD, [facility] CPT-4: 16043 11/04/2017 ([id number]) 75009 EST. P ATIENT, LEVEL IV Diagnosis: Essential (primary) hypertension[ICD10: I10] Diagnosis: Cervicalgia[ICD10: M54.2] Diagnosis: Myalgia[ICD10: M79.1] Kathy Espinosa MD, [facility] CPT-4: 55789 10/07/2017 ([id number]) 96878 EST. P ATIENT, LEVEL IV Diagnosis: Essential (primary) hypertension[ICD10: I10] Diagnosis: Major depressive disorder, recurrent, mild[ICD10: F33.0] Diagnosis: Generalized anxiety disorder[ICD10: F41.1] Kathy Espinosa MD, [facility] CPT-4: 08266 06/03/2017 ([id number]) 95252 EST. P ATIENT, LEVEL IV Diagnosis: Essential (primary) hypertension[ICD10: I10] Diagnosis: Mixed hyperlipidemia[ICD10: E78.2] Diagnosis: Low back pain[ICD10: M54.5] Kathy Espinosa MD, [facility] CPT-4: 51889 03/19/2017 ([id number]) 84599 EST. P ATIENT, LEVEL III Diagnosis: Pain in right lower leg[ICD10: M79.661] Diagnosis: Localized edema[ICD10: R60.0] Diagnosis: Contusion of right lower leg, initial encounter[ICD10: S80.11XA] Amanda Espinosa MD, [facility] CPT-4: 82862 01/21/2017 ([id number]) 85705 EST. P ATIENT, LEVEL IV Diagnosis: Mixed hyperlipidemia[ICD10: E78.2] Diagnosis: Major depressive disorder, recurrent, moderate[ICD10: F33.1] Kathy Espinosa MD, [facility] CPT-4: 80334 12/04/2016 ([id number]) 76688 EST. P ATIENT, LEVEL IV Diagnosis: Mixed hyperlipidemia[ICD10: E78.2] Diagnosis: Major depressive disorder, recurrent, mild[ICD10: F33.0] Diagnosis: Generalized anxiety disorder[ICD10: F41.1] Diagnosis: Essential (primary) hypertension[ICD10: I10] Diagnosis: Chronic obstructive pulmonary disease with (acute) exacerbation[ICD10: J44.1] Kahty Espinosa MD, [facility] CPT-4: 76813 11/14/2016 [id number] EST. PATIENT, LEVEL III Diagnosis: Acute laryngopharyngitis[ICD10: J06.0] Diagnosis: Other allergic rhinitis[ICD10: J30.89] Alba Espinosa MD, [facility] CPT-4: 72474 09/17/2016 15098 EST. PATIENT, LEVEL III Diagnosis: Contusion of right lower leg, initial encounter[ICD10: S80.11XA] Alba Espinosa MD, [facility] CPT-4: 86706 08/03/2016 ([id number]) 06739 EST. P ATIENT, LEVEL IV Diagnosis: Essential (primary) hypertension[ICD10: I10] Diagnosis: Mixed hyperlipidemia[ICD10: E78.2] Diagnosis: Acute recurrent maxillary sinusitis[ICD10: J01.01] Diagnosis: Chronic obstructive pulmonary disease with (acute) exacerbation[ICD10: J44.1] Kathy Espinosa MD, [facility] CPT-4: 16037 07/25/2016 ([id number]) 89642 EST. P ATIENT, LEVEL IV Diagnosis: Essential (primary) hypertension[ICD10: I10] Diagnosis: Gastro-esophageal reflux disease without esophagitis[ICD10: K21.9] Diagnosis: Generalized anxiety disorder[ICD10: F41.1] Diagnosis: Major depressive disorder, recurrent, mild[ICD10: F33.0] Kathy Espinosa MD, C CPT-4: 38579 03/22/2016 ([id number]) [id number] EST. P ATIENT, LEVEL IV Diagnosis: Essential (primary) hypertension[ICD10: I10] Diagnosis: Coronary angioplasty status[ICD10: Z98.61] Diagnosis: Hyperlipidemia, unspecified[ICD10: E78.5] Diagnosis: Major depressive disorder, recurrent, moderate[ICD10: F33.1] Kathy Espinosa MD, [facility] CPT-4: 63722 01/12/2016 ([id number]) [id number] EST. P ATIENT, LEVEL IV Diagnosis: Essential (primary) hypertension[ICD10: I10] Diagnosis: Gastro-esophageal reflux disease without esophagitis[ICD10: K21.9] Kathy Espinosa MD, [facility] CPT-4: 36184 10/13/2015 ([id number]) [id number] EST. P ATIENT, LEVEL IV Diagnosis: Gastro-esophageal reflux disease without esophagitis[ICD10: K21.9] Diagnosis: Essential (primary) hypertension[ICD10: I10] Diagnosis: Coronary angioplasty status[ICD10: Z98.61] Kathy Espinosa MD, C CPT-4: 52696 09/13/2015 ([id number]) OFFICE VISI T, [facility] - LEVEL 4 Diagnosis: Hyperlipidemia, unspecified[ICD10: E78.5] Diagnosis: Personal history of other diseases of the circulatory system[ICD10: Z86.79] Diagnosis: Unspecified osteoarthritis, unspecified site[ICD10: M19.90] Diagnosis: Polyneuropathy, unspecified[ICD10: G62.9] Kathy Espinosa MD, C CPT-4: 77884 07/05/2015 Plan of Care Planned Activity Notes [...] up into two 1/2 mile walks/rides. 02/23/2019 Patient Education: Patient Medication Summary Completed 02/23/2019 Patient Education: Cholesterol Management Completed 02/23/2019 Appointment: Amanda Romero WPtel: [address] [place] [address] (15 min) Moderate 02/06/2019 Visit Plan: URI - Pt advised to inc rease fluids, vitamin C. Discussed natural and expected course of this diagnosis and need to alert me if symptoms do not follow expected course, or if any worse. RX sent to patient's pharmacy. 10/03/2018 Appointment: Amanda Romero WPtel: [phone] (30 min) Complex 10/03/2018 Patient Education: [...] in clinic 08/25/2018 Appointment: Kathy Espinosa WPtel: [facility] (15 min) Moderate 08/25/2018 Patient Education: [...] they worsen. 06/16/2018 Appointment: Alba Fajardo WPtel: [facility] (15 min) Moderate 06/16/2018 Patient Education: Patient Medication Summary Completed 06/16/2018 Patient Education: Poison Ashley Completed 06/16/2018 Appointment: Amanda Romero WPtel: [phone] (15 min) Moderate 05/23/2018 Appointment: Kathy Espinosa WPtel: [facility] (15 min) Moderate 05/15/2018 Visit Plan: Hypertension [...] office 04/24/2018 Appointment: Kathy Espinosa WPtel: [phone] [facility] [place] (15 min) Moderate 04/24/2018 Patient Education: Patient Medication Summary Completed 04/24/2018 App[phone] [place] (15 min) Moderate 02/25/2018 Appointment: Kathy Espinosa WPtel: [phone] [facility] [place] (15 min) Moderate 02/20/2018 Appointment: Kathy Espinosa WPtel: [phone] [facility] [place] (15 min) Moderate 02/13/2018 Patient Education: [...] surrogate. 11/19/2017 Appointment: [phone] [facility] - Annual Wellness Visit [...] - one lesion each hand and on [facility] x 3 lesions and 2 lesions right [facility] 11/04/2017 App[facility]ment: [phone] ([facility] min) Moderate 11/04/2017 Patient [...] weeks. 10/07/2017 Appointment: [phone] (15 min) Moderate 10/07/2017 Patient [...] shots 06/03/2017 Appointment: Kathy Espinosa WPtel: [phone] [facility] (15 min) Moderate 06/03/2017 Patient Education: Patient Medication Summary Completed 06/03/2017 Patient Education: Obesity Completed 06/03/2017 Appointment: Kathy Espinosa WPtel: [phone] [facility] (15 min) Moderate 05/22/2017 Visit Plan: Hypertension [...] back 03/19/2017 Appointment: [phone] (15 min) Moderate 03/19/2017 Patient Education: Patient [...] venous doppler. 01/21/2017 Appointment: Amanda Romero WPtel: [phone] [phone] [place] (15 min) Moderate 01/21/2017 Patient Education: [...] current medications. 12/04/2016 Appointment: [phone] [place] (15 min) Moderate 12/04/2016 [...] care surrogate. 11/16/2016 Appointment: Alba Fajardo WPtel: [phone] [facility] - Annual Wellness Visit [...] acute concerns. 11/14/2016 Appointment: Kathy Espinosa WPtel: [facility] (15 min) Moderate 11/14/2016 Patient Education: Patient Medication Summary Completed 11/14/2016 Patient Education: Obesity Completed 11/14/2016 Appointment: Kathy Espinosa WPtel: [address] [place], [place] [phone] (15 min) Moderate 10/24/2016 Visit Plan: URI [...] pain. 08/03/2016 Appointment: Amanda Romero WPtel: [phone] [phone] (15 min) Moderate 08/03/2016 Patient Education: Patient [...] show improvement. 07/25/2016 Appointment: Kathy Espinosa [facility]Ptel[facility] ([facility] min) Moderate 07/25/2016 Patient Education: [...] medications. 01/12/2016 Appointment: [phone] [place] (15 min) Moderate 01/12/2016 Patient Education: Patient Medication Summary Completed 01/12/2016 Patient Education: Obesity Completed 01/12/2016 Patient Education: Hypertension Completed 01/12/2016 Appointment: [phone] [place] (15 min) Moderate 12/01/2015 Visit Plan: Hypertension - well con marthalled - continue with current medications, continue with [...] symptoms are not improving. 10/13/2015 Appointment: Kathy sEpinosa WPtel: [address] [place], [place] [phone] (15 min) Moderate 10/13/2015 Patient [...] TWICE DAILY 09/13/2015 Appointment: Kathy Espinosa WPtel: [address] [place], [place] [phone] (15 min) Moderate 09/13/2015 Patient Education: Patient Medication Summary Completed 09/13/2015 Patient Education: Hypertension Completed 09/13/2015 Appointment: Kathy Espinosa WPtel: [address] [place], [place] [phone] (15 min) Moderate 08/09/2015 Visit Plan: Hyperlipidemia [...] and lipitor. 07/05/2015 Appointment: [phone] [facility] [place] New Patient 07/05/2015 Patient [...] we will send a refer ral to [place] for physical therapy for your neck . [...] - one lesion each hand and on [facility] x 3 lesions and 2 lesions right [facility]
--- OUTSIDE RECORDS SUMMARY | 2020-04-12 22:19 | XMS REPORT | CCD ---
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 Name Role Phone PP Unavailable CCM Unavailable Summary Purpose Interface Exchange Insurance Providers Payer name Policy type / Coverage type Covered libertarian ID Effective Begin Date Effective End Date WPS Medicare Part B Medicare Part B [id number] Unknown Cigna Medicare Part B 36 [id number] Unknown Family history Grandfather Diagnosis Age At Onset lung cancer Unknown Runs in the family Diagnosis Age At Onset Cancer Unknown Grandfather Diagnosis Age At Onset Cancer Unknown Social History Social History Element Codes Description Effective Dates Marital status Unknown M arried Nitza 07/05/2015 Number of children Unknown 3 07/05/2015 Employment Unknown Retir ed 07/05/[address]: 6937005 Quit over 10 years ago 07/05/[address]: 219112 Currently drinks alcohol beer 07/05/2015 Allergies, Adverse Reactions, Alerts Substance Reaction Codes Entered Date Inactivated Date Status * NO KNOWN DRUG MEIR RGIES Unknown 07/05/2015 No Inactive Date Active Past Medical History Illness Codes Condition Status Onset Date Resolved Date Acute upper respirat ory infection, unspecified ICD-9: 465.9 ICD-10: J06.9 Active 10/03/2018 Unknown Cough ICD-9: 786.2 ICD-10: R05 Active 10/03/2018 Unknown Acute recurrent maxi llary sinusitis ICD-9: 461.0 ICD-10: J01.01 Active 07/24/2016 Unknown Essential (primary) hypertension ICD-9: 401.1 ICD-10: I10 Active 07/24/2016 Unknown Mixed hyperlipidemia ICD-9: 272.2 ICD-10: E78.2 Active 07/24/2016 Unknown Other allergic rhinitis ICD-9: 477.8 ICD-10: J30.89 Active 09/16/2016 Unknown Impaired fasting glu cose ICD-9: 790.21 ICD-10: R73.01 Active 11/20/2017 Unknown Allergic contact silvia matitis due to [...] ICD-9: 465.0 ICD-10: J06.0 Active 09/16/2016 Unknown Gastro-esophageal re flux disease without esophagitis [...] Condition Codes Effectiv e Dates Condition Status Acute upper respirat ory infection, unspecified ICD-9: 465.9 ICD-10: J06.9 10/03/2018 Active Cough ICD-9: 786.2 ICD-10: R05 10/03/2018 Active Acute recurrent maxi llary sinusitis ICD-9: 461.0 ICD-10: J01.01 07/24/2016 Active Essential (primary) hypertension ICD-9: 401.1 ICD-10: I10 07/24/2016 Active Mixed hyperlipidemia ICD-9: 272.2 ICD-10: E78.2 07/24/2016 Active Other allergic rhinitis ICD-9: 477.8 ICD-10: J30.89 09/16/2016 Active Impaired fasting glu cose ICD-9: 790.21 ICD-10: R73.01 11/20/2017 Active Allergic contact silvia matitis due to [...] itis ICD-9: 465.0 ICD-10: J06.0 09/16/2016 Active Gastro-esophageal re flux disease without esophagitis [...] Fill Instructions naproxen 500 mg tablet RxNorm: 028108 1 TABLET(S) BID NEEDED FOR PAIN 01/26/2019 07/24/2019 Ac tive Crestor 10 mg tablet RxNorm: 683991 1 Tablet(s) PO every other day 11/03/2018 01/26/2020 Ac tive Zithromax Z-Ralph 250 mg tablet RxNorm: 657040 1 Tablet(s) PO UD 10/13/2018 10/12/2018 Inactive Zithromax Z-Ralph 250 mg tablet RxNorm: 010085 1 Tablet(s) PO UD 10/13/2018 10/17/2018 Inactive escitalopram 20 mg t ablet RxNorm: 769974 Tablet(s) TAKE ONE & ONE-HALF TABLETS BY MOUTH IN THE EVENING 10/07/2018 No Stop Date Active Keflex 500 mg capsule RxNorm: 445850 1 Capsule(s) PO TID 10/03/2018 10/09/2018 Inactive Kenalog 40 mg/mL jenni pension for injection RxNorm: 6422927 Milliliter(s) Inj 10/03/2018 10/03/2018 In active pantoprazole 40 mg t ablet,delayed release RxNorm: 922943 1 Tablet(s) BID 09/24/2018 12/17/2019 Ac tive naproxen 500 mg tablet RxNorm: 142796 1 Tablet(s) BID as needed for pain 09/24/2018 01/25/2019 In active Kenalog 40 mg/mL jenni pension for injection RxNorm: 2916484 1 Milliliter(s) Inj 08/25/2018 08/25/2018 In active pantoprazole 40 mg t ablet,delayed release RxNorm: 057275 TAKE 1 TABLET BY MOUT H TWICE DAILY 06/24/2018 09/23/2018 Inactive betamethasone diprop ionate 0.05 % topical cream RxNorm: 141576 1 Application TOP BID as needed 06/16/2018 No Stop Date Active prednisone 20 mg tablet RxNorm: 594751 2 Tablet(s) PO daily 06/16/2018 06/20/2018 Inactive Kenalog 40 mg/mL jenni pension for injection RxNorm: 9418905 1 Milliliter(s) Inj 06/16/2018 06/16/2018 In active naproxen 500 mg tablet RxNorm: 206076 TAKE 1 TABLET BY MOUTH TWICE DAILY NE EDED FOR PAIN 05/13/2018 09/23/2018 Inactive naproxen 500 mg tablet RxNorm: 049843 TAKE ONE TABLET BY MOUTH TWICE DAILY NEEDED FOR PAIN 01/07/2018 05/12/2018 Inactive escitalopram 20 mg t ablet RxNorm: 640660 TAKE ONE & ONE-HALF T ABLETS BY MOUTH IN THE EVENING 12/16/2017 10/06/2018 Inactive pantoprazole 40 mg t ablet,delayed release RxNorm: 676590 1 Tablet(s) PO BID 11/21/2017 03/20/2018 In active Crestor 10 mg tablet RxNorm: 738412 1 Tablet(s) PO every other day 10/07/2017 11/02/2018 In active naproxen 500 mg tablet RxNorm: 192318 TAKE ONE TABLET BY MOUTH TWICE DAILY NEEDED FOR PAIN 06/27/2017 12/23/2017 Inactive escitalopram 20 mg t ablet RxNorm: 023332 1 Tablet(s) PO QPM 06/03/2017 05/28/2018 Inactive pantoprazole 40 mg t ablet,delayed release RxNorm: 616056 1 Tablet(s) PO BID 03/19/2017 05/07/2017 In active naproxen 500 mg tablet RxNorm: 227233 TAKE ONE TABLET BY MOUTH TWICE DAILY NEEDED FOR PAIN 02/11/2017 06/10/2017 Inactive naproxen 500 mg tablet RxNorm: 181878 TAKE ONE TABLET BY MOUTH TWICE DAILY NEEDED FOR PAIN 12/14/2016 02/10/2017 Inactive escitalopram 20 mg t ablet RxNorm: 059920 1.5 Tablet(s) PO QPM 12/04/2016 06/02/2017 Inactive buspirone 5 mg tablet RxNorm: 464161 1 Tablet(s) PO BID 11/14/2016 12/03/2016 Inactive amoxicillin 500 mg c apsule RxNorm: 709729 1 Capsule(s) PO TID 09/17/2016 09/26/2016 Inactive prednisone 20 mg tablet RxNorm: 723283 2 Tablet(s) PO daily 09/17/2016 09/21/2016 Inactive escitalopram 20 mg t ablet RxNorm: 984345 1 Tablet(s) PO QPM 08/28/2016 12/03/2016 Inactive naproxen 500 mg tablet RxNorm: 020815 TAKE ONE TABLET BY MOUTH TWICE DAILY NEEDED FOR PAIN 08/01/2016 11/28/2016 Inactive sulfamethoxazole 800 mg-trimethoprim 160 mg tablet RxNorm: 800756 1 Tablet(s) PO BID 07/25/2016 07/31/2016 Inactive Kenalog 40 mg/mL jenni pension for injection RxNorm: 5382070 Milliliter(s) Inj 07/25/2016 07/25/2016 In active Symbicort 80 mcg-4.5 mcg/actuation HFA aerosol inhaler RxNorm: 9715318 2 INH QHS 07/25/2016 09/11/2016 In active escitalopram 20 mg t ablet RxNorm: 820691 1 Tablet(s) PO QPM 03/22/2016 08/27/2016 Inactive alprazolam 0.5 mg di sintegrating tablet RxNorm: 515104 1 Tablet(s) PO TID as needed anxiety 03/22/2016 11/13/2016 Inactive atorvastatin 20 mg t ablet RxNorm: 876070 1 Tablet(s) PO daily 01/12/2016 10/06/2017 Inactive Lexapro 10 mg tablet RxNorm: 791627 1 Tablet(s) PO QPM 01/12/2016 03/21/2016 Inactive pantoprazole 40 mg t ablet,delayed release RxNorm: 444366 1 Tablet(s) PO daily 10/13/2015 11/11/2015 In active pantoprazole 40 mg t ablet,delayed release RxNorm: 229051 1 Tablet(s) PO BID 09/13/2015 10/12/2015 In active naproxen 500 mg tablet RxNorm: 086198 Tablet(s) PO BID as needed for pain 07/05/2015 07/31/2016 In active folic acid 400 mcg t ablet RxNorm: 824929 1 Tablet(s) PO daily No Start Date Active Vitamin B12 500 mcg RxNorm: 2000 Microgram(s) PO daily No Start Date Active Toprol XL 50 mg tabl et,extended release RxNorm: 925921 1 Tablet(s) PO daily No Start Date Active Tudorza Pressair 400 mcg/actuation breath activated RxNorm: 6192741 1 INH QAM No Start Date Active aspirin 81 mg capsul e,delayed release RxNorm: 431628 1 Capsule(s) PO daily No Start Date Active Incruse Ellipta 62.5 mcg/actuation powder for inhalation RxNorm: 5651112 1 INH daily No Start Date Active clopidogrel 75 mg ta blet RxNorm: 271435 1 Tablet(s) PO daily No Start Date Active Symbicort 80 mcg-4.5 mcg/actuation HFA aerosol inhaler RxNorm: 0264609 2 INH QHS No Start Date 07/24/2016 Inactive pantoprazole 40 mg t ablet,delayed release RxNorm: 213131 1 Tablet(s) PO daily No Start Date 09/12/2015 Inactive atorvastatin 40 mg t ablet RxNorm: 270236 1 Tablet(s) PO daily No Start Date 01/11/2016 Inactive furosemide 20 mg tablet RxNorm: 316713 1 Tablet(s) PO daily No Start Date 09/11/2016 Inactive naproxen 500 mg tablet RxNorm: 168788 Tablet(s) PO TID No Start Date 07/04/2015 Inactive Medication Administered Medication Codes Instruc tions Start Date Status Kenalog 40 mg/mL suspension for injection RxNorm: 7842263 Milliliter 10/03/2018 No longer Active Kenalog 40 mg/mL suspension for injection RxNorm: 0065093 1Milliliter 08/25/2018 N o longer Active Kenalog 40 mg/mL suspension for injection RxNorm: 4134463 1Milliliter 06/16/2018 N o longer Active Kenalog 40 mg/mL suspension for injection RxNorm: 6787050 Milliliter 07/25/2016 No longer Active Immunizations Vaccine Codes Date Status Pneumococcal CVX: 33 09/2014 completed Assessments Condition Codes Effectiv e Dates Cough ICD-10: R05 ICD-9: 786.2 10/03/2018 Acute upper respiratory infection, unspecified ICD-10: J06.9 ICD-9: 465.9 10/03/2018 Essential (primary) hypertension ICD -10: I10 ICD-9: 401.1 08/25/2018 Mixed hyperlipidemia ICD-10: E78.2 ICD-9: 272.2 08/25/2018 Other allergic rhinitis ICD-10: J30. 89 ICD-9: 477.8 08/25/2018 Impaired fasting glucose ICD-10: R73 .01 ICD-9: 790.21 08/19/2018 Other pruritus ICD-10: L29.8 ICD-9: 698.8 06/16/2018 [...] 461.0 07/25/2016 Gastro-esophageal reflux disease without esophagitis ICD-10: K21.9 ICD-9: 530.81 03/22/2016 Essential (primary) hypertension ICD -10: I10 ICD-9: 401.9 01/12/2016 Hyperlipidemia, unspecified ICD-10: E78.5 ICD-9: 272.4 01/12/2016 Coronary angioplasty status ICD-10: Z98.61 ICD-9: V45.82 01/12/2016 Unspecified osteoarthritis, unspecified site ICD-10: M19.90 ICD-9: 715.90 07/05/2015 Polyneuropathy, unspecified ICD-10: G62.9 ICD-9: 356.9 07/05/2015 Personal history of other diseases of the circulatory system ICD-10: Z86.79 ICD-9: V12.59 07/05/2015 Reason For Visit Reason For Visit Effective Dates Notes sinus congestion 10/03/2018 hypertension 08/25/2018 rash 06/16/2018 [...] Observation Code Item Item Code Result Date Lipid Ord30 CHOL 144 mg/dL 08/20/2018 Lipid [...] 30.1 pg 08/20/2018 Cbc With Differential Ord2 [place]% 8.0 % 08/20/2018 Cbc With Differential Ord2 [...] 1.41 K/ul 08/20/2018 Cbc With Differential Ord2 [place] ABS# 0.4 K/ul 08/20/2018 Cbc With Differential Ord2 Eos ABS# 0.1 K/ul 08/20/2018 Cbc With Differential Ord2 Baso ABS# 0.0 K/ul 08/20/2018 Tsh Ord6 TSH (3rd IS) 2.07 uIU/mL 08/20/2018 %Hba1C Ltt070 % HbA1c 18182-9 6.0 % 08/20/2018 %Hba1C Pxm119 Gluc Ave 126 mg/dL 08/20/2018 Comp Metabolic Mkn412 NA 142 mEq/L 08/20/2018 Comp Metabolic Leg548 K 4.2 mEq/L 08/20/2018 Comp Metabolic Xrf950 CL 105 mEq/L 08/20/2018 Comp Metabolic Uqt263 CO2 30.0 mEq/L 08/20/2018 Comp Metabolic Gru647 AN ION GAP 11 08/20/2018 Comp Metabolic Hzf895 GL UCOSE 132 mg/dL 08/20/2018 Comp Metabolic Jez661 Cr eat 1.3 mg/dL 08/20/2018 Comp Metabolic Cgq397 eG FR 58 ml/min/1.73m2 08/20 Comp Metabolic Nqk105 BUN 19 mg/dL 08/20/2018 Comp Metabolic Iql792 B/ C Ratio 14.8 Ratio 08/20/2018 Comp Metabolic Otq521 CA LCIUM 9.2 mg/dL 08/20/2018 Comp Metabolic Lfb460 AL K PHOS 72 U/L 08/20/2018 Comp Metabolic Krp566 T(SGOT) 21 U/L 08/20/2018 Comp Metabolic Bqe488 AL T(SGPT) 20 U/L 08/20/2018 Comp Metabolic Wby028 BI LI T 1.1 mg/dL 08/20/2018 Comp Metabolic Grk338 AL BUMIN 4.3 g/dL 08/20/2018 Comp Metabolic Zfp118 TP RO 6.6 g/dL 08/20/2018 Comp Metabolic Mmy148 GL OB 2.3 g/dL 08/20/2018 Comp Metabolic Ocv653 A/ G Ratio 1.9 Ratio 08/20/2018 Comp Metabolic Zan753 Os mo 287 mOsmo 08/20/2018 %Hba1C Mky485 % HbA1c 41971-6 5.9 % 11/20/2017 %Hba1C Qcx561 Gluc Ave 123 mg/dL 11/20/2017 B12 Uvd760 B12 1130.00 pg/ml 11/19/2017 Total Psa Ord10 [...] 29.2 pg 11/19/2017 Cbc With Differential Ord2 [place]% 8.6 % 11/19/2017 Cbc With Differential Ord2 [...] 1.37 K/ul 11/19/2017 Cbc With Differential Ord2 [place] ABS# 0.4 K/ul 11/19/2017 Cbc With Differential Ord2 Eos ABS# 0.0 K/ul 11/19/2017 Cbc With Differential Ord2 Baso ABS# 0.0 K/ul 11/19/2017 Comp Metabolic Vzb363 NA 142 mEq/L 11/19/2017 Comp Metabolic Gxh687 K 4.3 mEq/L 11/19/2017 Comp Metabolic Izn133 CL 104 mEq/L 11/19/2017 Comp Metabolic Wqn982 CO2 29.0 mEq/L 11/19/2017 Comp Metabolic Uqd121 AN ION GAP 13 11/19/2017 Comp Metabolic Tqw601 GL UCOSE 132 mg/dL 11/19/2017 Comp Metabolic Ryd434 Cr eat 1.2 mg/dL 11/19/2017 Comp Metabolic Lvt355 eG FR 63 ml/min/1.73m2 11/19 Comp Metabolic Ifl677 BUN 20 mg/dL 11/19/2017 Comp Metabolic Tbo002 B/ C Ratio 16.8 Ratio 11/19/2017 Comp Metabolic Wrs684 CA LCIUM 9.3 mg/dL 11/19/2017 Comp Metabolic Eod707 AL K PHOS 74 U/L 11/19/2017 Comp Metabolic Ttg674 T(SGOT) 15 U/L 11/19/2017 Comp Metabolic Jjr556 AL T(SGPT) 15 U/L 11/19/2017 Comp Metabolic Jvn530 BI LI T 0.9 mg/dL 11/19/2017 Comp Metabolic Aym394 AL BUMIN 4.3 g/dL 11/19/2017 Comp Metabolic Qhg798 TP RO 6.6 g/dL 11/19/2017 Comp Metabolic Bhq139 GL OB 2.3 g/dL 11/19/2017 Comp Metabolic Yoo599 A/ G Ratio 1.9 Ratio 11/19/2017 Comp Metabolic Dei896 Os mo 288 mOsmo 11/19/2017 Tsh Ord6 [...] 30.2 pg 11/16/2016 Cbc With Differential Ord2 [place]% 10.2 % 11/16/2016 Cbc With Differential Ord2 [...] 1.46 K/ul 11/16/2016 Cbc With Differential Ord2 [place] ABS# 0.5 K/ul 11/16/2016 Cbc With Differential Ord2 Eos ABS# 0.1 K/ul 11/16/2016 Cbc With Differential Ord2 Baso ABS# 0.0 K/ul 11/16/2016 Comp Metabolic Gqg932 NA 141 mEq/L 11/16/2016 Comp Metabolic Igk334 K 4.2 mEq/L 11/16/2016 Comp Metabolic Fen143 CL 106 mEq/L 11/16/2016 Comp Metabolic Vba894 CO2 30.0 mEq/L 11/16/2016 Comp Metabolic Ywu199 AN ION GAP 9 11/16/2016 Comp Metabolic Gvw553 GL UCOSE 118 mg/dL 11/16/2016 Comp Metabolic Cfu581 Cr eat 1.2 mg/dL 11/16/2016 Comp Metabolic Nqs002 eG FR 61 ml/min/1.73m2 11/16 Comp Metabolic Qkw564 BUN 22 mg/dL 11/16/2016 Comp Metabolic Klg440 B/ C Ratio 17.7 Ratio 11/16/2016 Comp Metabolic Elj201 CA LCIUM 9.2 mg/dL 11/16/2016 Comp Metabolic Baj503 AL K PHOS 91 U/L 11/16/2016 Comp Metabolic Flo700 T(SGOT) 16 U/L 11/16/2016 Comp Metabolic Oxa958 AL T(SGPT) 16 U/L 11/16/2016 Comp Metabolic Alm426 BI LI T 0.9 mg/dL 11/16/2016 Comp Metabolic Cch137 AL BUMIN 4.1 g/dL 11/16/2016 Comp Metabolic Pwn583 TP RO 6.4 g/dL 11/16/2016 Comp Metabolic Epn989 GL OB 2.3 g/dL 11/16/2016 Comp Metabolic Ixs562 A/ G Ratio 1.8 Ratio 11/16/2016 Comp Metabolic Pup519 Os mo 286 mOsmo 11/16/2016 Lipid Ord30 [...] 1.8 mg/dL 08/01/2015 B Type Natriuretic Peptide Pyg3978 B-[employer]IDE [employer] 13.10 pg/ml 08/01/2015 Lipid Ord30 CHOL 188 [...] Ord2 RDW 14.7 % 08/01/2015 Comp Metabolic Eyf363 NA 138 mEq/L 08/01/2015 Comp Metabolic Nsa156 K 4.2 mEq/L 08/01/2015 Comp Metabolic Pyc505 CL 104 mEq/L 08/01/2015 Comp Metabolic Cvt778 CO2 27.0 mEq/L 08/01/2015 Comp Metabolic Nxf053 AN ION GAP 11 08/01/2015 Comp Metabolic Tsn839 GL UCOSE 118 mg/dL 08/01/2015 Comp Metabolic Zzo137 Cr eat 1.2 mg/dL 08/01/2015 Comp Metabolic Cyx192 eG FR 66 ml/min/1.73m2 08/01 Comp Metabolic Rsj597 BUN 19 mg/dL 08/01/2015 Comp Metabolic Tqr238 B/ C Ratio 16.4 Ratio 08/01/2015 Comp Metabolic Kcu693 CA LCIUM 8.7 mg/dL 08/01/2015 Comp Metabolic Wgr710 AL K PHOS 85 U/L 08/01/2015 Comp Metabolic Uog078 T(SGOT) 16 U/L 08/01/2015 Comp Metabolic Ucr668 AL T(SGPT) 20 U/L 08/01/2015 Comp Metabolic Kiu796 BI LI T 0.7 mg/dL 08/01/2015 Comp Metabolic Meq868 AL BUMIN 3.9 g/dL 08/01/2015 Comp Metabolic Nns068 TP RO 6.2 g/dL 08/01/2015 Comp Metabolic Kkf376 GL OB 2.4 g/dL 08/01/2015 Comp Metabolic Dym346 A/ G Ratio 1.6 Ratio 08/01/2015 Comp Metabolic Mrw676 Os mo 279 mOsmo 08/01/2015 Tsh Ord6 hTSH II 1.79 uIU/mL 08/01/2015 Sed Rate Ord21 ESR 1 mm/hr 08/01/2015 Tsh Ord6 hTSH II 2.43 uIU/mL 07/07/2015 Folate Ord36 Folate 7.62 ng/mL 07/07/2015 B12 Qql515 B12 228.00 pg/ml 07/07/2015 Review of Systems System Result Effective Dates Constitutional recent illness 10/03/2018 Constitutional No anorexia [...] Location: face 08/25/2018 on 3 on left mu-ism, 2 on right mu-ism and 1 each on dorsum of hands [...] Location: face 11/04/2017 on 3 on left mu-ism, 2 on right mu-ism and 1 each on dorsum of hands [...] lips 12/04/2016 None Full Exam - General 1995 Ears/Nose/Throat lips/teeth/gingiva Overall: normal dentition 12/04/2016 None [...] CPT-4: J3301 08/25/2018 THER/PROPH/DIAG INJ SC/IM CPT-4: 30737 06/16/2018 TRIAMCINOLONE ACET I [place] NOS CPT-4: J3301 06/16/2018 PPPS, SUBSEQ VISIT CPT- 4: G0439 11/19/2017 DESTRUCT PREMALG LESION CPT-4: 64266 11/04/2017 DESTRUCT PREMALG LES 2-14 CPT-4: 93992 11/04/2017 PPPS, SUBSEQ VISIT CPT- 4: G0439 11/16/2016 THER/PROPH/DIAG INJ SC/IM CPT-4: 03543 07/25/2016 TRIAMCINOLONE ACET I [place] NOS CPT-4: J3301 07/25/2016 Vital Signs Date Vital 10/03/2018 Blood Pressure 1: 134/74 Code: 8480-6 BMI: 40.1 Code: 51099-8 Heart Rate 1: 55 bpm Height: 5'7" SpO2: 97% Temperature: 36.7 (C ) / 98.1 (F) Weight: 256 lbs 08/25/2018 Blood Pressure 1: 128/68 Code: 8480-6 BMI: 39.8 Code: 40096-4 Heart Rate 1: 55 bpm Height: 5'7" SpO2: 97% Weight: 254 lbs 06/16/2018 Blood Pressure 1: 120/67 Code: 8480-6 BMI: 40.1 Code: 52961-5 Heart Rate 1: 83 bpm Height: 5'7" SpO2: 95% Weight: 256 lbs 04/24/2018 Blood Pressure 1: 134/76 Code: 8480-6 BMI: 39.3 Code: 19605-5 Heart Rate 1: 55 bpm Height: 5'7" SpO2: 95% Weight: 251 lbs 11/19/2017 Blood Pressure 1: 130/62 Code: 8480-6 BMI: 38.1 Code: 35130-7 Heart Rate 1: 73 bpm Height: 5'7" SpO2: 93% Waist Measure (cm): 99 cm Weight: 243 lbs 11/04/2017 Blood Pressure 1: 136/68 Code: 8480-6 BMI: 38.2 Code: 55257-1 Heart Rate 1: 61 bpm Height: 5'7" SpO2: 98% Weight: 244 lbs 10/07/2017 Blood Pressure 1: 150/70 Code: 8480-6 BMI: 39.5 Code: 88826-1 Heart Rate 1: 65 bpm Height: 5'7" SpO2: 97% Weight: 252 lbs 06/03/2017 Blood Pressure 1: 140/70 Code: 8480-6 BMI: 37.9 Code: 93756-9 Heart Rate 1: 66 bpm Height: 5'7" SpO2: 96% Weight: 242 lbs 03/19/2017 Blood Pressure 1: 136/82 Code: 8480-6 BMI: 38.8 Code: 10904-0 Heart Rate 1: 58 bpm Height: 5'7" SpO2: 94% Weight: 247 lbs 8 oz 01/21/2017 Blood Pressure 1: 136/74 Code: 8480-6 BMI: 39.1 Code: 52122-0 Heart Rate 1: 58 bpm Height: 5'7" SpO2: 97% Weight: 249 lbs 8 oz 12/04/2016 Blood Pressure 1: 136/72 Code: 8480-6 Heart Rate 1: 55 bpm Height: 5'7" SpO2: 99% Weight: 11/16/2016 Blood Pressure 1: 124/76 Code: 8480-6 BMI: 39.2 Code: 96482-6 Heart Rate 1: 62 bpm Height: 5'7" SpO2: 96% Waist Measure (cm): 104 cm Weight: 250 lbs 11/14/2016 Blood Pressure 1: 152/60 Code: 8480-6 BMI: 39.8 Code: 13915-8 Heart Rate 1: 63 bpm Height: 5'7" SpO2: 94% Weight: 254 lbs 09/17/2016 Blood Pressure 1: 138/70 Code: 8480-6 BMI: 40.3 Code: 08501-9 Heart Rate 1: 60 bpm Height: 5'7" SpO2: 96% Weight: 257 lbs 08/03/2016 Blood Pressure 1: 148/78 Code: 8480-6 BMI: 39.9 Code: 76887-8 Heart Rate 1: 50 bpm Height: 5'7" SpO2: 97% Weight: 255 lbs 07/25/2016 Blood Pressure 1: 130/68 Code: 8480-6 BMI: 39.9 Code: 14359-3 Heart Rate 1: 61 bpm Height: 5'7" SpO2: 95% Weight: 255 lbs 03/22/2016 Blood Pressure 1: 136/76 Code: 8480-6 BMI: 39.0 Code: 83922-9 Heart Rate 1: 60 bpm Height: 5'7" SpO2: 98% Weight: 249 lbs 01/12/2016 Blood Pressure 1: 146/76 Code: 8480-6 BMI: 37.8 Code: 04769-2 Heart Rate 1: 59 bpm Height: 5'7" SpO2: 98% Weight: 241 lbs 8 oz 10/13/2015 Blood Pressure 1: 136/72 Code: 8480-6 BMI: 37.6 Code: 09850-4 Heart Rate 1: 70 bpm Height: 5'7" SpO2: 99% Weight: 240 lbs 09/13/2015 Blood Pressure 1: 140/80 Code: 8480-6 BMI: 37.2 Code: 26940-2 Heart Rate 1: 64 bpm Height: 5'7" SpO2: 97% Weight: 237 lbs 8 oz 07/05/2015 Blood Pressure 1: 170/84 Code: 8480-6 Blood Pressure 1: 130/70 Code: 8480-6 BMI: 35.9 Code: 68083-4 Heart Rate 1: 67 bpm Height: 5'7" SpO2: 95% Weight: 229 lbs Functional Status No Functional Status data History of Present Illness Symptom Name Status Resu lt Effective Date Notes Onset and Resolution s udden in onset [...] exercise 11/16/2016 None Annual Medicare Wellness Exam Handmildred ng Stress has problems coping 11/16/2016 None [...] nightmares 11/14/2016 None cough Location in the lacira ng 09/17/2016 None cough Quality acute 09/17/2016 [...] Encounters Encounter Performer Loca tion Codes Date ([id number]) [id number] EST. P ATIENT, LEVEL III Diagnosis: Cough[ICD10: R05] Diagnosis: Acute upper respiratory infection, unspecified[ICD10: J06.9] Amanda Espinosa MD, [facility] CPT-4: 75465 10/03/2018 ([id number]) 18949 EST. P ATIENT, LEVEL IV Diagnosis: Essential (primary) hypertension[ICD10: I10] Diagnosis: Mixed hyperlipidemia[ICD10: E78.2] Diagnosis: Other allergic rhinitis[ICD10: J30.89] Kathy Espinosa MD, [facility] CPT-4: 28693 08/25/2018 [id number] EST. PATIENT, LEVEL III Diagnosis: Other pruritus[ICD10: L29.8] Diagnosis: Allergic contact dermatitis due to plants, except food[ICD10: L23.7] Alba Espinosa MD, [facility] CPT-4: 62466 06/16/2018 ([id number]) 91788 EST. P ATIENT, LEVEL IV Diagnosis: Essential (primary) hypertension[ICD10: I10] Diagnosis: Allergic dermatitis of left upper eyelid[ICD10: H01.114] Diagnosis: Allergic rhinitis due to pollen[ICD10: J30.1] Kathy Espinosa MD, [facility] CPT-4: 80211 04/24/2018 ([id number]) 17077 EST. P ATIENT, LEVEL IV Diagnosis: Essential (primary) hypertension[ICD10: I10] Diagnosis: Mixed hyperlipidemia[ICD10: E78.2] Diagnosis: Actinic keratosis[ICD10: L57.0] Kathy Espinosa MD, [facility] CPT-4: 21697 11/04/2017 ([id number]) 50376 EST. P ATIENT, LEVEL IV Diagnosis: Essential (primary) hypertension[ICD10: I10] Diagnosis: Cervicalgia[ICD10: M54.2] Diagnosis: Myalgia[ICD10: M79.1] Kathy Espinosa MD, [facility] CPT-4: 31044 10/07/2017 ([id number]) 31140 EST. P ATIENT, LEVEL IV Diagnosis: Essential (primary) hypertension[ICD10: I10] Diagnosis: Major depressive disorder, recurrent, mild[ICD10: F33.0] Diagnosis: Generalized anxiety disorder[ICD10: F41.1] Kathy Espinosa MD, [facility] CPT-4: 91197 06/03/2017 ([id number]) 48390 EST. P ATIENT, LEVEL IV Diagnosis: Essential (primary) hypertension[ICD10: I10] Diagnosis: Mixed hyperlipidemia[ICD10: E78.2] Diagnosis: Low back pain[ICD10: M54.5] Kathy Espinosa MD, [facility] CPT-4: 91127 03/19/2017 ([id number]) 27080 EST. P ATIENT, LEVEL III Diagnosis: Pain in right lower leg[ICD10: M79.661] Diagnosis: Localized edema[ICD10: R60.0] Diagnosis: Contusion of right lower leg, initial encounter[ICD10: S80.11XA] Amanda Espinosa MD, [facility] CPT-4: 35290 01/21/2017 ([id number]) 30598 EST. P ATIENT, LEVEL IV Diagnosis: Mixed hyperlipidemia[ICD10: E78.2] Diagnosis: Major depressive disorder, recurrent, moderate[ICD10: F33.1] Kathy Espinosa MD, [facility] CPT-4: 59525 12/04/2016 ([id number]) 04167 EST. P ATIENT, LEVEL IV Diagnosis: Mixed hyperlipidemia[ICD10: E78.2] Diagnosis: Major depressive disorder, recurrent, mild[ICD10: F33.0] Diagnosis: Generalized anxiety disorder[ICD10: F41.1] Diagnosis: Essential (primary) hypertension[ICD10: I10] Diagnosis: Chronic obstructive pulmonary disease with (acute) exacerbation[ICD10: J44.1] Kathy Espinosa MD, [facility] CPT-4: 10411 11/14/2016 [id number] EST. PATIENT, LEVEL III Diagnosis: Acute laryngopharyngitis[ICD10: J06.0] Diagnosis: Other allergic rhinitis[ICD10: J30.89] Alba Espinosa MD, [facility] CPT-4: 71655 09/17/2016 06554 EST. PATIENT, LEVEL III Diagnosis: Contusion of right lower leg, initial encounter[ICD10: S80.11XA] Alba Espinosa MD, [facility] CPT-4: 26393 08/03/2016 ([id number]) [id number] EST. P ATIENT, LEVEL IV Diagnosis: Essential (primary) hypertension[ICD10: I10] Diagnosis: Mixed hyperlipidemia[ICD10: E78.2] Diagnosis: Acute recurrent maxillary sinusitis[ICD10: J01.01] Diagnosis: Chronic obstructive pulmonary disease with (acute) exacerbation[ICD10: J44.1] Kathy Espinosa MD, [facility] CPT-4: 91068 07/25/2016 ([id number]) 69552 EST. P ATIENT, LEVEL IV Diagnosis: Essential (primary) hypertension[ICD10: I10] Diagnosis: Gastro-esophageal reflux disease without esophagitis[ICD10: K21.9] Diagnosis: Generalized anxiety disorder[ICD10: F41.1] Diagnosis: Major depressive disorder, recurrent, mild[ICD10: F33.0] Kathy Espinosa MD, C CPT-4: 73348 03/22/2016 ([id number]) 07627 EST. P ATIENT, LEVEL IV Diagnosis: Essential (primary) hypertension[ICD10: I10] Diagnosis: Coronary angioplasty status[ICD10: Z98.61] Diagnosis: Hyperlipidemia, unspecified[ICD10: E78.5] Diagnosis: Major depressive disorder, recurrent, moderate[ICD10: F33.1] Kathy Espinosa MD, [facility] CPT-4: 12674 01/12/2016 ([id number]) 17415 EST. P ATIENT, LEVEL IV Diagnosis: Essential (primary) hypertension[ICD10: I10] Diagnosis: Gastro-esophageal reflux disease without esophagitis[ICD10: K21.9] Kathy Espinosa MD, [facility] CPT-4: 86849 10/13/2015 ([id number]) [id number] EST. P ATIENT, LEVEL IV Diagnosis: Gastro-esophageal reflux disease without esophagitis[ICD10: K21.9] Diagnosis: Essential (primary) hypertension[ICD10: I10] Diagnosis: Coronary angioplasty status[ICD10: Z98.61] Kathy Espinosa MD, C CPT-4: 29801 09/13/2015 ([id number]) OFFICE VISI , [facility] - LEVEL 4 Diagnosis: Hyperlipidemia, unspecified[ICD10: E78.5] Diagnosis: Personal history of other diseases of the circulatory system[ICD10: Z86.79] Diagnosis: Unspecified osteoarthritis, unspecified site[ICD10: M19.90] Diagnosis: Polyneuropathy, unspecified[ICD10: G62.9] Kathy Espinosa MD, C CPT-4: 32716 07/05/2015 Plan of Care Planned Activity Notes C odes Status Date Visit Plan: URI - Pt advised to inc rease fluids, vitamin C. Discussed natural and expected course of this diagnosis and need to alert me if symptoms do not follow expected course, or if any worse. RX sent to patient's pharmacy. 10/03/2018 Appointment: Amanda Romero WPtel: [phone] [phone] (30 min) Complex 10/03/2018 Patient Education: Patient [...] clinic 08/25/2018 Appointment: [phone] [place] (15 min) Moderate 08/25/2018 Patient Education: Patient [...] worsen. 06/16/2018 Appointment: Alba Fajardo WPtel: [phone] [facility] [place] (15 min) Moderate 06/16/2018 Patient Education: Patient Medication Summary Completed 06/16/2018 Patient Education: Poison Ashley Completed 06/16/2018 Appointment: Amanda Romero WPtel: [facility]5 [phone] [place] (15 min) Moderate 05/23/2018 Appointment: Kathy Espinosa WPtel: [facility]5 [facility] [place] (15 min) Moderate 05/15/2018 Visit [...] the office 04/24/2018 Appointment: Kathy Espinosa WPtel: [facility] [place] (15 min) Moderate 04/24/2018 Patient Education: Patient Medication Summary Completed 04/24/2018 Appointment: Kathy Espinosa WPtel: [facility] [place] (15 min) Moderate 02/25/2018 Appointment: Kathy Espinosa WPtel: [facility]5 [facility] [place] (15 min) Moderate 02/20/2018 Appointment: Kathy Espinosa WPtel: [facility] [place] (15 min) Moderate 02/13/2018 Patient Education: [...] care surrogate. 11/19/2017 Appointment: [facility]Ptel[phone] [facility] - Annual Wellness Visit 11/19/2017 Patient [...] - one lesion each hand and on mu-ism x 3 lesions and 2 lesions right mu-ism 11/04/2017 Appointment: Kathy Espinosa WPtel: [address] [place], [place] [phone] (15 min) Moderate 11/04/2017 Patient Education: Patient [...] two weeks. 10/07/2017 Appointment: Kathy Espinosa WPtel: [address] [place], [place] [phone] (15 min) Moderate 10/07/2017 Patient Education: Patient [...] flu shots 06/03/2017 Appointment: Kathy Espinosa WPtel: [address] [place], [place] [phone] (15 min) Moderate 06/03/2017 Patient Education: Patient Medication Summary Completed 06/03/2017 Patient Education: Obesity Completed 06/03/2017 Appointment: Kathy Espinosa WPtel: [address] [place], [place] [phone] (15 min) Moderate 05/22/2017 Visit Plan: Hypertension [...] of back 03/19/2017 Appointment: Kathy Espinosa WPtel: [phone] [facility] [place] (15 min) Moderate 03/19/2017 Patient [...] venous doppler. 01/21/2017 Appointment: [phone] [place] (15 min) Moderate 01/21/2017 Patient [...] current medications. 12/04/2016 Appointment: [facility]Ptel[facility] [phone] [facility] (15 min) Moderate 12/04/2016 Patient Education: Patient [...] care surrogate. 11/16/2016 App[facility]ment: [phone] [facility] - Annual Wellness Visit 11/16/2016 Patient [...] acute concerns. 11/14/2016 Appointment: Kathy Espinosa WPtel: [facility]5 [facility] (15 min) Moderate 11/14/2016 Patient Education: Patient Medication Summary Completed 11/14/2016 Patient Education: Obesity Completed 11/14/2016 Appointment: Kathy Espinosa WPtel: [phone] [facility] (15 min) Moderate 10/24/2016 Visit Plan: [...] or pain. 08/03/2016 Appointment: Amanda Romero WPtel: [facility]5 [phone] [place] (15 min) Moderate 08/03/2016 Patient Education: [...] show improvement. 07/25/2016 Appointment: [facility]spinosa [facility]Ptel[phone] [facility] (15 min) Moderate 07/25/2016 Patient Education: Patient [...] current medications. 01/12/2016 Appointment: Kathy Espinosa WPtel: [facility]1 [address] (15 min) Moderate 01/12/2016 Patient Education: Patient Medication Summary Completed 01/12/2016 Patient Education: Obesity Completed 01/12/2016 Patient Education: Hypertension Completed 01/12/2016 Appointment: Kathy Espinosa WPtel: [facility]3 [address] (15 min) Moderate 12/01/2015 Visit Plan: [...] not improving. 10/13/2015 Appointment: Kathy Espinosa WPtel: [facility] (15 min) Moderate 10/13/2015 Patient Education: [...] DAILY 09/13/2015 Appointment: Kathy Espinosa WPtel: [phone] [facility] (15 min) Moderate 09/13/2015 Patient Education: Patient Medication Summary Completed 09/13/2015 Patient Education: Hypertension Completed 09/13/2015 Appointment: Kathy Espinosa WPtel: [phone] [facility] (15 min) Moderate 08/09/2015 Visit [...] and lipitor. 07/05/2015 Appointment: Kathy Espinosa WPtel: [facility]5 [facility] New Patient 07/05/2015 Patient Education: Patient Medication Summary Completed 07/05/2015 Referral: Heber Almanza Referral Appointment Requested Referral: Heber Almanza Pt's informed that referral paperwork sent. If they do not hear anything back by next Mon/Tues to let me know. Completed Instructions Comment . Medicare Exam - to day we [...] acutely worsens - call the office . Medicare Exam - to day we [...] pt is to call for acute concerns. decrease the pantopr azole to one time [...] we will send a refer ral to [facility] for physical therapy for your neck [...] or if they worsen. probiotics - Culture llbar, norton gerardo mitch, or generic . URI - Pt [...] THE PANTOPRAZOLE TO 40MG TWICE DAILY . Hematoma, right lo wer leg, anterior - Pt is to monitor symptoms if they change or worsen pt is to notify clinic. Notify clinic with any redness, streaking, warmth, edema, shortness of breath or pain. . Hypertension - wel l controlled - [...] - one lesion each hand and on mu-ism x 3 lesions and 2 lesions right mu-ism
--- OUTSIDE RECORDS SUMMARY | 2020-04-12 22:20 | XMS REPORT | CCD ---
Author Author Joaquín Espinosa Organization [facility] Address [address] [place] [address] Phone Care Team Providers Care Transportation Superintendent Name Role Phone PP Unavailable CCM Unavailable Summary Purpose Interface Exchange Insurance Providers Payer name Policy type / Coverage type Covered alliance party ID Effective Begin Date Effective End Date WPS Medicare Part B Medicare Part B [id number] Unknown Unknown Cigna Medicare Part B [id number] Unknown Unknown Family history Grandfather Diagnosis Age At Onset lung cancer Unknown Runs in the family Diagnosis Age At Onset Cancer Unknown Grandfather Diagnosis Age At Onset Cancer Unknown Social History Social History Element Codes Description Effective Dates Marital status Unknown M arried Nitza 07/05/2015 Number of children Unknown 3 07/05/2015 Employment Unknown Retir ed 07/05/[address]: 4673110 Quit over 10 years ago 07/05/[address]: 822477 Currently drinks alcohol beer 07/05/2015 Allergies, Adverse Reactions, Alerts Allergies, Adverse Reactions, Alerts data not found Past Medical History Illness Codes Condition Status Onset Date Resolved Date Essential (primary) hypertension ICD-9: 401.1 ICD-10: I10 Active 07/24/2016 Unknown Low back pain ICD-9: 724.2 ICD-10: M54.5 Active 03/19/2017 Unknown Mixed hyperlipidemia ICD-9: 272.2 ICD-10: E78.2 Active 07/24/2016 Unknown Contusion of right l ower leg, initial encounter ICD-9: 924.5 ICD-10: S80.11XA Active 08/02/2016 Unknown Localized edema ICD-9: 782.3 ICD-10: R60.0 Active 01/21/2017 Unknown Pain in right lower leg ICD-9: 729.5 ICD-10: M79.661 Active 01/21/2017 Unknown Major depressive dis order, recurrent, moderate ICD-9: 296.32 ICD-10: F33.1 Active 01/11/2016 Unknown Encounter for genera l adult medical examination without abnormal findings ICD-9: V70.9 ICD-10: Z00.00 Active 11/16/2016 Unknown Chronic obstructive pulmonary disease with (acute) exacerbation ICD-9: 491.21 ICD-10: J44.1 Active 07/24/2016 Unknown Generalized anxiety disorder ICD-9: 300.02 ICD-10: F41.1 Active 03/21/2016 Unknown Major depressive dis order, recurrent, mild ICD-9: 296.31 ICD-10: F33.0 Active 03/21/2016 Unknown Acute laryngopharyng itis ICD-9: 465.0 ICD-10: J06.0 Active 09/16/2016 Unknown Other allergic rhinitis ICD-9: 477.8 ICD-10: J30.89 Active 09/16/2016 Unknown Acute recurrent maxi llary sinusitis ICD-9: 461.0 ICD-10: J01.01 Active 07/24/2016 Unknown Gastro-esophageal re flux disease [...] hypertension ICD-9: 401.1 ICD-10: I10 07/24/2016 Active Low back pain ICD-9: 724.2 ICD-10: M54.5 03/19/2017 Active Mixed hyperlipidemia ICD-9: 272.2 ICD-10: E78.2 07/24/2016 Active Contusion of right l ower leg, initial encounter ICD-9: 924.5 ICD-10: S80.11XA 08/02/2016 Active Localized edema ICD-9: 782.3 ICD-10: R60.0 01/21/2017 Active Pain in right lower leg ICD-9: 729.5 ICD-10: M79.661 01/21/2017 Active Major depressive dis order, recurrent, moderate ICD-9: 296.32 ICD-10: F33.1 01/11/2016 Active Encounter for genera l adult medical examination without abnormal findings ICD-9: V70.9 ICD-10: Z00.00 11/16/2016 Active Chronic obstructive pulmonary disease with (acute) exacerbation ICD-9: 491.21 ICD-10: J44.1 07/24/2016 Active Generalized anxiety disorder ICD-9: 300.02 ICD-10: F41.1 03/21/2016 Active Major depressive dis order, recurrent, mild ICD-9: 296.31 ICD-10: F33.0 03/21/2016 Active Acute laryngopharyng itis ICD-9: 465.0 ICD-10: J06.0 09/16/2016 Active Other allergic rhinitis ICD-9: 477.8 ICD-10: J30.89 09/16/2016 Active Acute recurrent maxi llary sinusitis ICD-9: 461.0 ICD-10: J01.01 07/24/2016 Active Gastro-esophageal re flux disease without [...] Date Stop Date Sta tus Fill Instructions pantoprazole 40 mg t ablet,delayed release RxNorm: 744595 1 Tablet(s) PO BID 03/19/2017 07/16/2017 Ac tive naproxen 500 mg tablet RxNorm: 692897 TAKE ONE TABLET BY MOUTH TWICE DAILY NEEDED FOR PAIN 02/11/2017 06/10/2017 Active naproxen 500 mg tablet RxNorm: 240773 TAKE ONE TABLET BY MOUTH TWICE DAILY NEEDED FOR PAIN 12/14/2016 02/10/2017 Inactive escitalopram 20 mg t ablet RxNorm: 935278 1.5 Tablet(s) PO QPM 12/04/2016 07/01/2017 Active buspirone 5 mg tablet RxNorm: 312512 1 Tablet(s) PO BID 11/14/2016 12/03/2016 Inactive amoxicillin 500 mg c apsule RxNorm: 393543 1 Capsule(s) PO TID 09/17/2016 09/26/2016 Inactive prednisone 20 mg tablet RxNorm: 163467 2 Tablet(s) PO daily 09/17/2016 09/21/2016 Inactive escitalopram 20 mg t ablet RxNorm: 955154 1 Tablet(s) PO QPM 08/28/2016 12/03/2016 Inactive naproxen 500 mg tablet RxNorm: 721981 TAKE ONE TABLET BY MOUTH TWICE DAILY NEEDED FOR PAIN 08/01/2016 11/28/2016 Inactive sulfamethoxazole 800 mg-trimethoprim 160 mg tablet RxNorm: 821191 1 Tablet(s) PO BID 07/25/2016 07/31/2016 Inactive Kenalog 40 mg/mL jenni pension for injection RxNorm: 1674530 Milliliter(s) Inj 07/25/2016 07/25/2016 In active Symbicort 80 mcg-4.5 mcg/actuation HFA aerosol inhaler RxNorm: 2507431 2 INH QHS 07/25/2016 09/11/2016 In active escitalopram 20 mg t ablet RxNorm: 514382 1 Tablet(s) PO QPM 03/22/2016 08/27/2016 Inactive alprazolam 0.5 mg di sintegrating tablet RxNorm: 460581 1 Tablet(s) PO TID as needed anxiety 03/22/2016 11/13/2016 Inactive atorvastatin 20 mg t ablet RxNorm: 498567 1 Tablet(s) PO daily 01/12/2016 No Stop Date Active Lexapro 10 mg tablet RxNorm: 929757 1 Tablet(s) PO QPM 01/12/2016 03/21/2016 Inactive pantoprazole 40 mg t ablet,delayed release RxNorm: 210046 1 Tablet(s) PO daily 10/13/2015 11/11/2015 In active pantoprazole 40 mg t ablet,delayed release RxNorm: 704244 1 Tablet(s) PO BID 09/13/2015 10/12/2015 In active naproxen 500 mg tablet RxNorm: 427046 Tablet(s) PO BID as needed for pain 07/05/2015 07/31/2016 In active folic acid 400 mcg t ablet RxNorm: 050508 1 Tablet(s) PO daily No Start Date Active Vitamin B12 500 mcg RxNorm: 2000 Microgram(s) PO daily No Start Date Active Tudorza Pressair 400 mcg/actuation breath activated RxNorm: 7554677 1 INH QAM No Start Date Active aspirin 81 mg capsul e,delayed release RxNorm: 025553 1 Capsule(s) PO daily No Start Date Active Incruse Ellipta 62.5 mcg/actuation powder for inhalation RxNorm: 3293689 1 INH daily No Start Date Active clopidogrel 75 mg ta blet RxNorm: 923465 1 Tablet(s) PO daily No Start Date Active Symbicort 80 mcg-4.5 mcg/actuation HFA aerosol inhaler RxNorm: 3195077 2 INH QHS No Start Date 07/24/2016 Inactive pantoprazole 40 mg t ablet,delayed release RxNorm: 660977 1 Tablet(s) PO daily No Start Date 09/12/2015 Inactive atorvastatin 40 mg t ablet RxNorm: 256252 1 Tablet(s) PO daily No Start Date 01/11/2016 Inactive furosemide 20 mg tablet RxNorm: 286398 1 Tablet(s) PO daily No Start Date 09/11/2016 Inactive naproxen 500 mg tablet RxNorm: 376368 Tablet(s) PO TID No Start Date 07/04/2015 Inactive Medication Administered Medication Codes Instruc tions Start Date Status Kenalog 40 mg/mL suspension for injection RxNorm: 9074342 Milliliter 07/25/2016 No longer Active Immunizations Vaccine Codes Date Status Pneumococcal CVX: 33 09/2014 completed Assessments Condition Codes Effectiv e Dates Mixed hyperlipidemia ICD-10: E78.2 ICD-9: 272.2 03/19/2017 Essential (primary) hypertension ICD -10: I10 ICD-9: 401.1 03/19/2017 Low back pain ICD-10: M54.5 ICD-9: 724.2 03/19/2017 Contusion of right lower leg, initial encounter ICD-10: S80.11XA ICD-9: 924.5 01/21/2017 Pain in right lower leg ICD-10: M79. 661 ICD-9: 729.5 01/21/2017 Localized edema ICD-10: R60.0 ICD-9: 782.3 01/21/2017 Major depressive disorder, recurrent, moderate ICD-10: F33.1 ICD-9: 296.32 12/04/2016 Encounter for general adult medical exam ination without abnormal findings ICD-10: Z00.00 ICD-9: V70.9 11/16/2016 Major depressive disorder, recurrent, mild ICD-10: F33.0 ICD-9: 296.31 11/14/2016 Chronic obstructive pulmonary disease wi th (acute) exacerbation ICD-10: J44.1 ICD-9: 491.21 11/14/2016 Generalized anxiety disorder ICD-10: F41.1 ICD-9: 300.02 11/14/2016 Other allergic rhinitis ICD-10: J30. 89 ICD-9: 477.8 09/17/2016 Acute laryngopharyngitis ICD-10: J06 .0 ICD-9: 465.0 [...] Reason For Visit Effective Dates Notes hypertension 03/19/2017 improved lower leg pain 01/21/2017 [...] 89.9 fl 11/16/2016 Cbc With Differential Ord2 [place]% 10.2 % 11/16/2016 Cbc With Differential Ord2 [...] 1.46 K/ul 11/16/2016 Cbc With Differential Ord2 [place] ABS# 0.5 K/ul 11/16/2016 Cbc With Differential Ord2 Eos ABS# 0.1 K/ul 11/16/2016 Cbc With Differential Ord2 Baso ABS# 0.0 K/ul 11/16/2016 Comp Metabolic Oty667 NA 141 mEq/L 11/16/2016 Comp Metabolic Tue176 K 4.2 mEq/L 11/16/2016 Comp Metabolic Zhh716 CL 106 mEq/L 11/16/2016 Comp Metabolic Kql659 CO2 30.0 mEq/L 11/16/2016 Comp Metabolic Aeo820 AN ION GAP 9 11/16/2016 Comp Metabolic Tjp098 GL UCOSE 118 mg/dL 11/16/2016 Comp Metabolic Zpj099 Cr eat 1.2 mg/dL 11/16/2016 Comp Metabolic Hdl798 eG FR 61 ml/min/1.73m2 11/16 Comp Metabolic Aej486 BUN 22 mg/dL 11/16/2016 Comp Metabolic Omi172 B/ C Ratio 17.7 Ratio 11/16/2016 Comp Metabolic Znb879 CA LCIUM 9.2 mg/dL 11/16/2016 Comp Metabolic Kxv809 AL K PHOS 91 U/L 11/16/2016 Comp Metabolic Dgy697 T(SGOT) 16 U/L 11/16/2016 Comp Metabolic Vrp691 AL T(SGPT) 16 U/L 11/16/2016 Comp Metabolic Ecb017 BI LI T 0.9 mg/dL 11/16/2016 Comp Metabolic Vhw352 AL BUMIN 4.1 g/dL 11/16/2016 Comp Metabolic Jlc207 TP RO 6.4 g/dL 11/16/2016 Comp Metabolic Xgx287 GL OB 2.3 g/dL 11/16/2016 Comp Metabolic Zgk104 A/ G Ratio 1.8 Ratio 11/16/2016 Comp Metabolic Rqj639 Os mo 286 mOsmo 11/16/2016 Lipid Ord30 [...] Ord90 Mag 1.8 mg/dL 08/01/2015 Comp Metabolic Pug572 NA 138 mEq/L 08/01/2015 Comp Metabolic Wfj242 K 4.2 mEq/L 08/01/2015 Comp Metabolic Tse927 CL 104 mEq/L 08/01/2015 Comp Metabolic Ikv423 CO2 27.0 mEq/L 08/01/2015 Comp Metabolic Yhx891 AN ION GAP 11 08/01/2015 Comp Metabolic Cnx872 GL UCOSE 118 mg/dL 08/01/2015 Comp Metabolic Wsl164 Cr eat 1.2 mg/dL 08/01/2015 Comp Metabolic Vtg003 eG FR 66 ml/min/1.73m2 08/01 Comp Metabolic Piu066 BUN 19 mg/dL 08/01/2015 Comp Metabolic Ftk779 B/ C Ratio 16.4 Ratio 08/01/2015 Comp Metabolic Hvz002 CA LCIUM 8.7 mg/dL 08/01/2015 Comp Metabolic Cih155 AL K PHOS 85 U/L 08/01/2015 Comp Metabolic Kkl124 T(SGOT) 16 U/L 08/01/2015 Comp Metabolic Omp276 AL T(SGPT) 20 U/L 08/01/2015 Comp Metabolic Pno697 BI LI T 0.7 mg/dL 08/01/2015 Comp Metabolic Qes996 AL BUMIN 3.9 g/dL 08/01/2015 Comp Metabolic Tss102 TP RO 6.2 g/dL 08/01/2015 Comp Metabolic Pyi628 GL OB 2.4 g/dL 08/01/2015 Comp Metabolic Jwo932 A/ G Ratio 1.6 Ratio 08/01/2015 Comp Metabolic Jle890 Os mo 279 mOsmo 08/01/2015 Cbc With Differential Ord2 [...] 4.8 Ratio 08/01/2015 B Type Natriuretic Peptide Tom5922 B-ATMOSPHERIC PHYSICS PROFESSOR 13.10 pg/ml 08/01/2015 Tsh Ord6 hTSH II 1.79 uIU/mL 08/01/2015 Sed Rate Ord21 ESR 1 mm/hr 08/01/2015 Tsh Ord6 hTSH II 2.43 uIU/mL 07/07/2015 Folate Ord36 Folate 7.62 ng/mL 07/07/2015 B12 Pxm495 B12 228.00 pg/ml 07/07/2015 Review of Systems System Result Effective Dates Constitutional No recent illness 03/19/2017 Constitutional No [...] Procedures Procedure Codes Date PPPS, SUBSEQ VISIT CPT-4: E8012Ayesnpy 11/16/2016 THER/PROPH/DIAG INJ SC/IM CPT-4: 85003Dwaiaap 07/25/2016 TRIAMCINOLONE ACET I [place] NOS CPT-4: F5032Jlukgud 07/25/2016 Vital Signs Date Vital 03/19/2017 Blood Pressure 1: 136/82 Code: 8480-6 BMI: 38.8 Code: 99359-5 Heart Rate 1: 58 bpm Height: 5'7" SpO2: 94% Weight: 247 lbs 8 oz 01/21/2017 Blood Pressure 1: 136/74 Code: 8480-6 BMI: 39.1 Code: 90019-4 Heart Rate 1: 58 bpm Height: 5'7" SpO2: 97% Weight: 249 lbs 8 oz 12/04/2016 Blood Pressure 1: 136/72 Code: 8480-6 Heart Rate 1: 55 bpm Height: 5'7" SpO2: 99% Weight: 11/16/2016 Blood Pressure 1: 124/76 Code: 8480-6 BMI: 39.2 Code: 03480-3 Heart Rate 1: 62 bpm Height: 5'7" SpO2: 96% Waist Measure (cm): 104 cm Weight: 250 lbs 11/14/2016 Blood Pressure 1: 152/60 Code: 8480-6 BMI: 39.8 Code: 79790-7 Heart Rate 1: 63 bpm Height: 5'7" SpO2: 94% Weight: 254 lbs 09/17/2016 Blood Pressure 1: 138/70 Code: 8480-6 BMI: 40.3 Code: 24978-2 Heart Rate 1: 60 bpm Height: 5'7" SpO2: 96% Weight: 257 lbs 08/03/2016 Blood Pressure 1: 148/78 Code: 8480-6 BMI: 39.9 Code: 55480-5 Heart Rate 1: 50 bpm Height: 5'7" SpO2: 97% Weight: 255 lbs 07/25/2016 Blood Pressure 1: 130/68 Code: 8480-6 BMI: 39.9 Code: 35397-3 Heart Rate 1: 61 bpm Height: 5'7" SpO2: 95% Weight: 255 lbs 03/22/2016 Blood Pressure 1: 136/76 Code: 8480-6 BMI: 39.0 Code: 71905-4 Heart Rate 1: 60 bpm Height: 5'7" SpO2: 98% Weight: 249 lbs 01/12/2016 Blood Pressure 1: 146/76 Code: 8480-6 BMI: 37.8 Code: 19644-3 Heart Rate 1: 59 bpm Height: 5'7" SpO2: 98% Weight: 241 lbs 8 oz 10/13/2015 Blood Pressure 1: 136/72 Code: 8480-6 BMI: 37.6 Code: 93775-3 Heart Rate 1: 70 bpm Height: 5'7" SpO2: 99% Weight: 240 lbs 09/13/2015 Blood Pressure 1: 140/80 Code: 8480-6 BMI: 37.2 Code: 80054-2 Heart Rate 1: 64 bpm Height: 5'7" SpO2: 97% Weight: 237 lbs 8 oz 07/05/2015 Blood Pressure 1: 130/70 Code: 8480-6 Blood Pressure 1: 170/84 Code: 8480-6 BMI: 35.9 Code: 32606-3 Heart Rate 1: 67 bpm Height: 5'7" SpO2: 95% Weight: 229 lbs Functional Status No Functional Status data History of Present Illness Symptom Name Status Resu lt Effective Date Notes hypertension Onset and Resolution ongoing 03/19/2017 None [...] Encounters Encounter Performer Loca tion Codes Date ([id number]) 76926 EST. P ATIENT, LEVEL IV Diagnosis: Essential (primary) hypertension[ICD10: I10] Diagnosis: Mixed hyperlipidemia[ICD10: E78.2] Diagnosis: Low back pain[ICD10: M54.5] [facility] MD, [facility] CPT-4: 03639 03/19/2017 ([id number]) 72850 EST. P ATIENT, LEVEL III Diagnosis: Pain in right lower leg[ICD10: M79.661] Diagnosis: Localized edema[ICD10: R60.0] Diagnosis: Contusion of right lower leg, initial encounter[ICD10: S80.11XA] Amanda E[facility]osa MD, [facility] CPT-4: 41619 01/21/2017 ([id number]) 32293 EST. P ATIENT, LEVEL IV Diagnosis: Mixed hyperlipidemia[ICD10: E78.2] Diagnosis: Major depressive disorder, recurrent, moderate[ICD10: F33.1] [facility] MD, [facility] CPT-4: 49310 12/04/2016 ([id number] 56022 EST. P ATIENT, LEVEL IV Diagnosis: Mixed hyperlipidemia[ICD10: E78.2] Diagnosis: Major depressive disorder, recurrent, mild[ICD10: F33.0] Diagnosis: Generalized anxiety disorder[ICD10: F41.1] Diagnosis: Essential (primary) hypertension[ICD10: I10] Diagnosis: Chronic obstructive pulmonary disease with (acute) exacerbation[ICD10: J44.1] [facility] MD, [facility] CPT-4: 23962 11/14/2016 01840 EST. PATIENT, LEVEL III Diagnosis: Acute laryngopharyngitis[ICD10: J06.0] Diagnosis: Other allergic rhinitis[ICD10: J30.89] Alba Espinosa MD, [facility] CPT-4: 97618 09/17/2016 71894 EST. PATIENT, LEVEL III Diagnosis: Contusion of right lower leg, initial encounter[ICD10: S80.11XA] Alba Espinosa MD, [facility] CPT-4: 79814 08/03/2016 ([id number]) 40413 EST. P ATIENT, LEVEL IV Diagnosis: Essential (primary) hypertension[ICD10: I10] Diagnosis: Mixed hyperlipidemia[ICD10: E78.2] Diagnosis: Acute recurrent maxillary sinusitis[ICD10: J01.01] Diagnosis: Chronic obstructive pulmonary disease with (acute) exacerbation[ICD10: J44.1] [facility] MD, [facility] CPT-4: 05584 07/25/2016 ([id number]) 74850 EST. P ATIENT, LEVEL IV Diagnosis: Essential (primary) hypertension[ICD10: I10] Diagnosis: Gastro-esophageal reflux disease without esophagitis[ICD10: K21.9] Diagnosis: Generalized anxiety disorder[ICD10: F41.1] Diagnosis: Major depressive disorder, recurrent, mild[ICD10: F33.0] [facility] MD, [facility] CPT-4: 00945 03/22/2016 ([id number]) 91571 EST. P ATIENT, LEVEL IV Diagnosis: Essential (primary) hypertension[ICD10: I10] Diagnosis: Coronary angioplasty status[ICD10: Z98.61] Diagnosis: Hyperlipidemia, unspecified[ICD10: E78.5] Diagnosis: Major depressive disorder, recurrent, moderate[ICD10: F33.1] Kathy [facility] MD, [facility] CPT-4: 89352 01/12/2016 ([id number]) 82572 EST. P ATIENT, LEVEL IV Diagnosis: Essential (primary) hypertension[ICD10: I10] Diagnosis: Gastro-esophageal reflux disease without esophagitis[ICD10: K21.9] Kathy [facility] MD, [facility] CPT-4: 30141 10/13/2015 ([id number]) 09410 EST. P ATIENT, LEVEL IV Diagnosis: Gastro-esophageal reflux disease without esophagitis[ICD10: K21.9] Diagnosis: Essential (primary) hypertension[ICD10: I10] Diagnosis: Coronary angioplasty status[ICD10: Z98.61] [facility] CPT-4: 62460 09/13/2015 ([id number]) OFFICE VISI T, NEW - LEVEL 4 Diagnosis: Hyperlipidemia, unspecified[ICD10: E78.5] Diagnosis: Personal history of other diseases of the circulatory system[ICD10: Z86.79] Diagnosis: Unspecified osteoarthritis, unspecified site[ICD10: M19.90] Diagnosis: Polyneuropathy, unspecified[ICD10: G62.9] [facility] CPT-4: 53652 07/05/2015 Plan of Care Planned Activity Notes C odes Status Date Visit Plan: Hypertension - well controll ed - continue with current medications, continue with no added salt diet. Pt has been encouraged to exercise daily.The pt has been advised to call the office if there are any acute concerns about change in blood pressure readings at home.Hyperlipidemia - pt has been counseled about appropriate [...] and to assure normal liver response to medications.Low back pain - check xray of back 03/19/2017 Patient Education: Patient Medication Summary Completed 03/19/2017 Patient Education: Obesity Completed 03/19/2017 Care Plan: X-RAY EXAM L-S SPINE 2/3 VWS LOINC : 99617-2 Pending 03/19/2017 Visit Plan: Contusion-right lower leg-im proving but pain and swelling in right lower extremity has worsened-will obtain venous doppler to r/o DVT-continues ice, elevation, anti inflammatories as directed. Instructed patient and his we will call them with the results of the venous doppler. 01/21/2017 [facility] [phone] [phone] (15 min) Moderate 01/21/2017 Patient Education: Patient Medication Summary Completed 01/21/2017 Patient Education: Obesity Completed 01/21/2017 Visit Plan: Hyperlipidemia - pt has bee n counseled about appropriate diet, exercise, and need [...] and to assure normal liver response to medications.Arthritis- occasionally uncontrolled symptoms- recommend pt to take antiinflammatory as directed for pain control.Use tylenol for break through pain symptoms.Chronic Depression and anxiety - the pt has symptoms of chronic anxiety and depression that have been fairly well controlled since the last office visit. The pt has expected periods of exacerbation with abatement of the symptoms with change in situational exposure. No change in current medications. 12/04/2016 [facility]: [facility] [phone] [id number] (15 min) Moderate 12/04/2016 Patient Education: Patient Medication Summary Completed 12/04/2016 Visit Plan: Medicare Exam - today we dis cussed the patients past history, immunizations, preventative exams/evaluations [...] risk and to maintain independece in the home.Today we discussed the need for the patient to create paperwork for Advanced directives as well as for the patient to provide this office with a copy of her DOPA paperwork for health care surrogate. 2016 Appointment: [facility] Fajardo [facility] [phone] [id number] [facility] - Annual Wellness Visit 11/16/2016 Patient Education: Patient Medication Summary Completed 11/16/2016 Visit Plan: Anxiety - the patient has un controlled anxiety and will benefit from an SSRI on a daily basis to attempt control of the symptoms of anxiety (tachycardia, overwhelming sensations, stress, insomnia, etc). I also believe that the patient will benefit from very low dose of prn benzodiazepine. Pt is aware of the risks and benefits of treatment with the above medications.start on buspirone - 5mg one pill twice daily.call the office on SATURDAY to let us know if the medication is helping with your anxiety.Hypertension - uncontrolled - the patient's medications have [...] the office next week for practitioner to review.The pt is to call for acute concerns. 11/14/2016 Appointment: [facility] [phone] [id number] (15 min) Moderate 11/14/2016 Patient Education: Patient Medication Summary Completed 11/14/2016 Patient Education: Obesity Completed 11/14/2016 Appointment: [facility] [phone] [id number] (15 min) Moderate 10/24/2016 Visit Plan: URI - Pt advised to increase fluids, vitamin C. Discussed natural and expected course of this diagnosis and need to alert me if symptoms do not follow expected course, or if any worse. RX sent to patient's pharmacy.Allergies - chronic - recommended pt to use allergy medication as prescribed. Pt has been counseled as to the appropriate use of the medication. Pt to call if allergy symptoms are not controlled with the medication.If using nasal spray, instructions as follows: Nasal spray- use twice daily, one spray per nostril twice daily, after 30 minutes, rinse out nose with saline spray.. Use opposite hand per nostril to spray in the nasal steroid allergy spray. 09/17/2016 Patient Education: Patient Medication Summary Completed 09/17/2016 Patient Education: Obesity Completed 09/17/2016 Visit Plan: Hematoma, right lower leg, a nterior - Pt is to monitor symptoms if they change or worsen pt is to notify clinic. Notify clinic with any redness, streaking, warmth, edema, shortness of breath or pain. 08/03/2016 Appointment: Amanda Romero WPtel: [phone] [id number] [place] (15 min) Moderate 08/03/2016 Patient Education: Patient Medication Summary Completed 08/03/2016 Patient Education: Obesity Completed 08/03/2016 Visit Plan: Hypertension - well controll ed - continue with current medications, continue with no added salt diet. Pt has been encouraged to exercise daily.The pt has been advised to call the office if there are any acute concerns about change in blood pressure readings at home.COPD EXACERBATION - COPD is a chronic problem [...] symptoms are beyond acute control with rescue medications.We have reviewed chronic treatment strategy, symptom control, and plans for acute exacerbations. No changes today to the current treatment plan as the patient is stable, monitor for acute changes.Sinusitis - Pt has acute infection - pain in face, maxillary region, Pt informed to use decongestant, RX given to patient, sinus rinses also recommended. Call if symptoms do not show improvement. 07/25/2016 Appointment: [facility]el[facility] [phone] [id number] [place] (15 min) Moderate 07/25/2016 Patient Education: Patient Medication Summary Completed 07/25/2016 Patient Education: Obesity Completed 07/25/2016 Visit Plan: Hypertension - well controll ed - continue with current medications, continue with no added salt diet. Pt has been encouraged to exercise daily.The pt has been advised to call the office if there are any acute concerns about change in blood pressure readings at home.Esophageal Reflux - the patient has been counseled against excessive intake of caffeine, spicy foods, peppermint, and cinnamon - all of which can exacerbate esophageal reflux.The patient is to take medications as prescribed and call the office if the symptoms are not improving.Chronic Depression and anxiety - the pt has [...] Completed 03/22/2016 Visit Plan: Hypertension - well controll ed - continue with current medications, continue with no added salt diet. Pt has been encouraged to exercise daily.The pt has been advised to call the office if there are any acute concerns about change in blood pressure readings at home.Hyperlipidemia - pt has been counseled about appropriate [...] and to assure normal liver response to medications.Chronic Depression and anxiety - the pt has symptoms of chronic anxiety and depression that have been fairly well controlled since the last office visit. The pt has expected periods of exacerbation with abatement of the symptoms with change in situational exposure. No change in current medications. 01/12/2016 Appointment: Kathy Espinosa WPtel: [facility] [place] (15 min) Moderate 01/12/2016 Patient Education: Patient Medication Summary Completed 01/12/2016 Patient Education: Obesity Completed 01/12/2016 Patient Education: Hypertension Completed 01/12/2016 Appointment: Kathy Espinosa WPtel: [facility] [place] (15 min) Moderate 12/01/2015 Visit Plan: Hypertension - well controll ed - continue with current medications, continue with no added salt diet. Pt has been encouraged to exercise daily.The pt has been advised to call the office if there are any acute concerns about change in blood pressure readings at home.Esophageal Reflux - the patient has been counseled against excessive intake of caffeine, spicy foods, peppermint, and cinnamon - all of which can exacerbate esophageal reflux.The patient is to take medications as prescribed and call the office if the symptoms are not improving. 10/13/2015 Appointment: Kathy Espinosa WPtel: [address] [place], [place] [phone] (15 min) Moderate 10/13/2015 Patient Education: Patient Medication Summary Completed 10/13/2015 Patient Education: Hypertension Completed 10/13/2015 Visit Plan: Hypertension - well controll ed - continue with current medications, continue with no added salt diet. Pt has been encouraged to exercise daily.The pt has been advised to call the office if there are any acute concerns about change in blood pressure readings at home.Esophageal Reflux - the patient has been counseled against excessive intake of caffeine, spicy foods, peppermint, and cinnamon - all of which can exacerbate esophageal reflux.The patient is to take medications as prescribed and call the office if the symptoms are not improving.INCREASE THE PANTOPRAZOLE TO 40MG TWICE DAILY 09/13/2015 Appointment: Kathy Espinosa WPtel: [address] [place], [place] [phone] (15 min) Moderate 09/13/2015 Patient Education: Patient Medication Summary Completed 09/13/2015 Patient Education: Hypertension Completed 09/13/2015 Appointment: Kathy Espinosa WPtel: [address] [place], [place] [phone] (15 min) Moderate 08/09/2015 Visit Plan: Hyperlipidemia - pt has bee n counseled about appropriate diet, exercise, and need [...] and to assure normal liver response to medications.Arthritis- occasionally uncontrolled symptoms- recommend pt to take antiinflammatory as directed for pain control.Use tylenol for break through pain symptoms.CAD - continue with ASA, plavix and lipitor. 07/05/2015 Appointment: Kathy Espinosa [facility]el[phone] [place] New Patient 07/05/2015 Patient Education: Patient Medication Summary Completed 07/05/2015 Referral: Heber Almanza Referral Appointment Requested Referral: Archie Heber Pt's informed that referral paperwork sent. If [...] TO 40MG TWICE DAILY - books about weigh t loss - [...] check xray of back probiotics - Culture llbar, errol carr[place] mitch, or generic . URI [...] spray in the nasal steroid allergy spray. decrease the pantopr azole to one time [...] with the results of the venous doppler. . Hypertension - wel l controlled - [...]
--- OUTSIDE RECORDS SUMMARY | 2020-04-12 22:21 | XMS REPORT | CCD ---
Author Author Joaquín Espinosa Organization [facility] Address [address] [place] [address] Phone Care Team Providers Care Vamp Presser Name Role Phone PP Unavailable CCM Unavailable Summary Purpose Interface Exchange Insurance Providers Payer name Policy type / Coverage type Covered alliance party ID Effective Begin Date Effective End Date WPS Medicare Part B Medicare Part B [id number] Unknown Unknown Cigna Medicare Part B [id number] Unknown Unknown Family history Grandfather Diagnosis Age At Onset lung cancer Unknown Runs in the family Diagnosis Age At Onset Cancer Unknown Grandfather Diagnosis Age At Onset Cancer Unknown Social History Social History Element Codes Description Effective Dates Marital status Unknown M arried Nitza 07/05/2015 Number of children Unknown 3 07/05/2015 Employment Unknown Retir ed 07/05/[address]: 3159871 Quit over 10 years ago 07/05/[address]: 609696 Currently drinks alcohol beer 07/05/2015 Allergies, Adverse Reactions, Alerts Allergies, Adverse Reactions, Alerts data not found Past Medical History Illness Codes Condition Status Onset Date Resolved Date Contusion of right l ower leg, initial encounter ICD-9: 924.5 ICD-10: S80.11XA Active 08/02/2016 Unknown Localized edema ICD-9: 782.3 ICD-10: R60.0 Active 01/21/2017 Unknown Pain in right lower leg ICD-9: 729.5 ICD-10: M79.661 Active 01/21/2017 Unknown Major depressive dis order, recurrent, moderate ICD-9: 296.32 ICD-10: F33.1 Active 01/11/2016 Unknown Mixed hyperlipidemia ICD-9: 272.2 ICD-10: E78.2 Active 07/24/2016 Unknown Encounter for genera l adult medical examination without abnormal findings ICD-9: V70.9 ICD-10: Z00.00 Active 11/16/2016 Unknown Chronic obstructive pulmonary disease with (acute) exacerbation ICD-9: 491.21 ICD-10: J44.1 Active 07/24/2016 Unknown Essential (primary) hypertension ICD-9: [...] Condition Codes Effectiv e Dates Condition Status Contusion of right l ower leg, initial encounter ICD-9: 924.5 ICD-10: S80.11XA 08/02/2016 Active Localized edema ICD-9: 782.3 ICD-10: R60.0 01/21/2017 Active Pain in right lower leg ICD-9: 729.5 ICD-10: M79.661 01/21/2017 Active Major depressive dis order, recurrent, moderate ICD-9: 296.32 ICD-10: F33.1 01/11/2016 Active Mixed hyperlipidemia ICD-9: 272.2 ICD-10: E78.2 07/24/2016 Active Encounter for genera l adult medical examination without abnormal findings ICD-9: V70.9 ICD-10: Z00.00 11/16/2016 Active Chronic obstructive pulmonary disease with (acute) exacerbation ICD-9: 491.21 ICD-10: J44.1 07/24/2016 Active Essential (primary) hypertension ICD-9: 401.1 [...] Fill Instructions naproxen 500 mg tablet RxNorm: 002134 TAKE ONE TABLET BY MOUTH TWICE DAILY NEEDED FOR PAIN 02/11/2017 06/10/2017 Active naproxen 500 mg tablet RxNorm: 548765 TAKE ONE TABLET BY MOUTH TWICE DAILY NEEDED FOR PAIN 12/14/2016 02/10/2017 Inactive escitalopram 20 mg t ablet RxNorm: 226114 1.5 Tablet(s) PO QPM 12/04/2016 07/01/2017 Active buspirone 5 mg tablet RxNorm: 822043 1 Tablet(s) PO BID 11/14/2016 12/03/2016 Inactive amoxicillin 500 mg c apsule RxNorm: 520190 1 Capsule(s) PO TID 09/17/2016 09/26/2016 Inactive prednisone 20 mg tablet RxNorm: 684048 2 Tablet(s) PO daily 09/17/2016 09/21/2016 Inactive escitalopram 20 mg t ablet RxNorm: 254152 1 Tablet(s) PO QPM 08/28/2016 12/03/2016 Inactive naproxen 500 mg tablet RxNorm: 274836 TAKE ONE TABLET BY MOUTH TWICE DAILY NEEDED FOR PAIN 08/01/2016 11/28/2016 Inactive sulfamethoxazole 800 mg-trimethoprim 160 mg tablet RxNorm: 053241 1 Tablet(s) PO BID 07/25/2016 07/31/2016 Inactive Kenalog 40 mg/mL jenni pension for injection RxNorm: 4887001 Milliliter(s) Inj 07/25/2016 07/25/2016 In active Symbicort 80 mcg-4.5 mcg/actuation HFA aerosol inhaler RxNorm: 9904257 2 INH QHS 07/25/2016 09/11/2016 In active escitalopram 20 mg t ablet RxNorm: 168211 1 Tablet(s) PO QPM 03/22/2016 08/27/2016 Inactive alprazolam 0.5 mg di sintegrating tablet RxNorm: 012224 1 Tablet(s) PO TID as needed anxiety 03/22/2016 11/13/2016 Inactive atorvastatin 20 mg t ablet RxNorm: 208507 1 Tablet(s) PO daily 01/12/2016 No Stop Date Active Lexapro 10 mg tablet RxNorm: 155288 1 Tablet(s) PO QPM 01/12/2016 03/21/2016 Inactive pantoprazole 40 mg t ablet,delayed release RxNorm: 137356 1 Tablet(s) PO daily 10/13/2015 11/11/2015 In active pantoprazole 40 mg t ablet,delayed release RxNorm: 240456 1 Tablet(s) PO BID 09/13/2015 10/12/2015 In active naproxen 500 mg tablet RxNorm: 500370 Tablet(s) PO BID as needed for pain 07/05/2015 07/31/2016 In active folic acid 400 mcg t ablet RxNorm: 513221 1 Tablet(s) PO daily No Start Date Active Vitamin B12 500 mcg RxNorm: 2000 Microgram(s) PO daily No Start Date Active Tudorza Pressair 400 mcg/actuation breath activated RxNorm: 7517480 1 INH QAM No Start Date Active aspirin 81 mg capsul e,delayed release RxNorm: 457702 1 Capsule(s) PO daily No Start Date Active Incruse Ellipta 62.5 mcg/actuation powder for inhalation RxNorm: 5885982 1 INH daily No Start Date Active clopidogrel 75 mg ta blet RxNorm: 403075 1 Tablet(s) PO daily No Start Date Active Symbicort 80 mcg-4.5 mcg/actuation HFA aerosol inhaler RxNorm: 1848830 2 INH QHS No Start Date 07/24/2016 Inactive pantoprazole 40 mg t ablet,delayed release RxNorm: 818611 1 Tablet(s) PO daily No Start Date 09/12/2015 Inactive atorvastatin 40 mg t ablet RxNorm: 535921 1 Tablet(s) PO daily No Start Date 01/11/2016 Inactive furosemide 20 mg tablet RxNorm: 995772 1 Tablet(s) PO daily No Start Date 09/11/2016 Inactive naproxen 500 mg tablet RxNorm: 321927 Tablet(s) PO TID No Start Date 07/04/2015 Inactive Medication Administered Medication Codes Instruc tions Start Date Status Kenalog 40 mg/mL suspension for injection RxNorm: 4859862 Milliliter 07/25/2016 No longer Active Immunizations Vaccine Codes Date Status Pneumococcal CVX: 33 09/2014 completed Assessments Condition Codes Effectiv e Dates Contusion of right lower leg, initial encounter ICD-10: S80.11XA ICD-9: 924.5 01/21/2017 Pain in right lower leg ICD-10: M79. 661 ICD-9: 729.5 01/21/2017 Localized edema ICD-10: R60.0 ICD-9: 782.3 01/21/2017 Mixed hyperlipidemia ICD-10: E78.2 ICD-9: 272.2 12/04/2016 Major depressive disorder, recurrent, moderate ICD-10: F33.1 ICD-9: 296.32 12/04/2016 Encounter for general adult medical exam ination without abnormal findings ICD-10: Z00.00 ICD-9: V70.9 11/16/2016 Major depressive disorder, recurrent, mild ICD-10: F33.0 ICD-9: 296.31 11/14/2016 Chronic obstructive pulmonary disease wi th (acute) exacerbation ICD-10: J44.1 ICD-9: 491.21 11/14/2016 Essential (primary) hypertension ICD -10: I10 ICD-9: 401.1 11/14/2016 Generalized anxiety disorder ICD-10: F41.1 ICD-9: [...] Visit Reason For Visit Effective Dates Notes lower leg pain 01/21/2017 hypertension 12/04/2016 Annual [...] 30.2 pg 11/16/2016 Cbc With Differential Ord2 [place]% 10.2 % 11/16/2016 Cbc With Differential Ord2 [...] 1.46 K/ul 11/16/2016 Cbc With Differential Ord2 [place] ABS# 0.5 K/ul 11/16/2016 Cbc With Differential Ord2 Eos ABS# 0.1 K/ul 11/16/2016 Cbc With Differential Ord2 Baso ABS# 0.0 K/ul 11/16/2016 Comp Metabolic Wpf616 NA 141 mEq/L 11/16/2016 Comp Metabolic Qjk460 K 4.2 mEq/L 11/16/2016 Comp Metabolic Esa076 CL 106 mEq/L 11/16/2016 Comp Metabolic Dfv984 CO2 30.0 mEq/L 11/16/2016 Comp Metabolic Chd511 AN ION GAP 9 11/16/2016 Comp Metabolic Xic124 GL UCOSE 118 mg/dL 11/16/2016 Comp Metabolic Lqe309 Cr eat 1.2 mg/dL 11/16/2016 Comp Metabolic Qyz866 eG FR 61 ml/min/1.73m2 11/16 Comp Metabolic Wmx642 BUN 22 mg/dL 11/16/2016 Comp Metabolic Dvd275 B/ C Ratio 17.7 Ratio 11/16/2016 Comp Metabolic Dpt200 CA LCIUM 9.2 mg/dL 11/16/2016 Comp Metabolic Tou911 AL K PHOS 91 U/L 11/16/2016 Comp Metabolic Mwa380 T(SGOT) 16 U/L 11/16/2016 Comp Metabolic Fvf450 AL T(SGPT) 16 U/L 11/16/2016 Comp Metabolic Ine002 BI LI T 0.9 mg/dL 11/16/2016 Comp Metabolic Odj343 AL BUMIN 4.1 g/dL 11/16/2016 Comp Metabolic Cfi904 TP RO 6.4 g/dL 11/16/2016 Comp Metabolic Wbk436 GL OB 2.3 g/dL 11/16/2016 Comp Metabolic Dew582 A/ G Ratio 1.8 Ratio 11/16/2016 Comp Metabolic Lwx634 Os mo 286 mOsmo 11/16/2016 Lipid Ord30 [...] Ord90 Mag 1.8 mg/dL 08/01/2015 Comp Metabolic Ejr181 NA 138 mEq/L 08/01/2015 Comp Metabolic Vse487 K 4.2 mEq/L 08/01/2015 Comp Metabolic Yxd616 CL 104 mEq/L 08/01/2015 Comp Metabolic Qed889 CO2 27.0 mEq/L 08/01/2015 Comp Metabolic Gov265 AN ION GAP 11 08/01/2015 Comp Metabolic Bxc715 GL UCOSE 118 mg/dL 08/01/2015 Comp Metabolic Jnz154 Cr eat 1.2 mg/dL 08/01/2015 Comp Metabolic Fwf004 eG FR 66 ml/min/1.73m2 08/01 Comp Metabolic Krx303 BUN 19 mg/dL 08/01/2015 Comp Metabolic Xmn281 B/ C Ratio 16.4 Ratio 08/01/2015 Comp Metabolic Mgf778 CA LCIUM 8.7 mg/dL 08/01/2015 Comp Metabolic Ytq818 AL K PHOS 85 U/L 08/01/2015 Comp Metabolic Qfq702 T(SGOT) 16 U/L 08/01/2015 Comp Metabolic Cjk577 AL T(SGPT) 20 U/L 08/01/2015 Comp Metabolic Ypk804 BI LI T 0.7 mg/dL 08/01/2015 Comp Metabolic Wdg738 AL BUMIN 3.9 g/dL 08/01/2015 Comp Metabolic Sgy580 TP RO 6.2 g/dL 08/01/2015 Comp Metabolic Juh052 GL OB 2.4 g/dL 08/01/2015 Comp Metabolic Biw968 A/ G Ratio 1.6 Ratio 08/01/2015 Comp Metabolic Bka502 Os mo 279 mOsmo 08/01/2015 Cbc With [...] 4.8 Ratio 08/01/2015 B Type Natriuretic Peptide Cym5749 B-RN TRANSITIONAL CARE 13.10 pg/ml 08/01/2015 Tsh Ord6 hTSH II 1.79 uIU/mL 08/01/2015 Sed Rate Ord21 ESR 1 mm/hr 08/01/2015 Tsh Ord6 hTSH II 2.43 uIU/mL 07/07/2015 Folate Ord36 Folate 7.62 ng/mL 07/07/2015 B12 Mfo272 B12 228.00 pg/ml 07/07/2015 Review of Systems System Result Effective Dates Musculoskeletal joint complaint 01/21/2017 Constitutional No recent [...] Procedure Codes Date PPPS, SUBSEQ VISIT CPT-4: [id number] 11/16/2016 THER/PROPH/DIAG INJ SC/IM CPT-4: 49122Qmrgshx 07/25/2016 TRIAMCINOLONE ACET I [place] NOS CPT-4: F2483Kzormhi 07/25/2016 Vital Signs Date Vital 01/21/2017 Blood Pressure 1: 136/74 Code: 8480-6 BMI: 39.1 Code: 45614-1 Heart Rate 1: 58 bpm Height: 5'7" SpO2: 97% Weight: 249 lbs 8 oz 12/04/2016 Blood Pressure 1: 136/72 Code: 8480-6 Heart Rate 1: 55 bpm Height: 5'7" SpO2: 99% Weight: 11/16/2016 Blood Pressure 1: 124/76 Code: 8480-6 BMI: 39.2 Code: 05174-3 Heart Rate 1: 62 bpm Height: 5'7" SpO2: 96% Waist Measure (cm): 104 cm Weight: 250 lbs 11/14/2016 Blood Pressure 1: 152/60 Code: 8480-6 BMI: 39.8 Code: 55907-6 Heart Rate 1: 63 bpm Height: 5'7" SpO2: 94% Weight: 254 lbs 09/17/2016 Blood Pressure 1: 138/70 Code: 8480-6 BMI: 40.3 Code: 98754-1 Heart Rate 1: 60 bpm Height: 5'7" SpO2: 96% Weight: 257 lbs 08/03/2016 Blood Pressure 1: 148/78 Code: 8480-6 BMI: 39.9 Code: 95402-4 Heart Rate 1: 50 bpm Height: 5'7" SpO2: 97% Weight: 255 lbs 07/25/2016 Blood Pressure 1: 130/68 Code: 8480-6 BMI: 39.9 Code: 36198-8 Heart Rate 1: 61 bpm Height: 5'7" SpO2: 95% Weight: 255 lbs 03/22/2016 Blood Pressure 1: 136/76 Code: 8480-6 BMI: 39.0 Code: 62375-7 Heart Rate 1: 60 bpm Height: 5'7" SpO2: 98% Weight: 249 lbs 01/12/2016 Blood Pressure 1: 146/76 Code: 8480-6 BMI: 37.8 Code: 43918-7 Heart Rate 1: 59 bpm Height: 5'7" SpO2: 98% Weight: 241 lbs 8 oz 10/13/2015 Blood Pressure 1: 136/72 Code: 8480-6 BMI: 37.6 Code: 24417-7 Heart Rate 1: 70 bpm Height: 5'7" SpO2: 99% Weight: 240 lbs 09/13/2015 Blood Pressure 1: 140/80 Code: 8480-6 BMI: 37.2 Code: 28754-8 Heart Rate 1: 64 bpm Height: 5'7" SpO2: 97% Weight: 237 lbs 8 oz 07/05/2015 Blood Pressure 1: 130/70 Code: 8480-6 Blood Pressure 1: 170/84 Code: 8480-6 BMI: 35.9 Code: 69063-4 Heart Rate 1: 67 bpm Height: 5'7" SpO2: 95% Weight: 229 lbs Functional Status No Functional Status data History of Present Illness Symptom Name Status Resu lt Effective Date Notes lower leg pain Location on the right [...] Encounters Encounter Performer Loca tion Codes Date ([id number]) [id number] EST. P ATIENT, LEVEL III Diagnosis: Pain in right lower leg[ICD10: M79.661] Diagnosis: Localized edema[ICD10: R60.0] Diagnosis: Contusion of right lower leg, initial encounter[ICD10: S80.11XA] Amanda Espinosa MD, [facility] CPT-4: 38991 01/21/2017 ([id number]) 56216 EST. P ATIENT, LEVEL IV Diagnosis: Mixed hyperlipidemia[ICD10: E78.2] Diagnosis: Major depressive disorder, recurrent, moderate[ICD10: F33.1] Kathy Espinosa MD, [facility] CPT-4: 16580 12/04/2016 ([id number]) 49600 EST. P ATIENT, LEVEL IV Diagnosis: Mixed hyperlipidemia[ICD10: E78.2] Diagnosis: Major depressive disorder, recurrent, mild[ICD10: F33.0] Diagnosis: Generalized anxiety disorder[ICD10: F41.1] Diagnosis: Essential (primary) hypertension[ICD10: I10] Diagnosis: Chronic obstructive pulmonary disease with (acute) exacerbation[ICD10: J44.1] Kathy Espinosa MD, [facility] CPT-4: 63344 11/14/2016 [id number] EST. PATIENT, LEVEL III Diagnosis: Acute laryngopharyngitis[ICD10: J06.0] Diagnosis: Other allergic rhinitis[ICD10: J30.89] Alba Espinosa MD, [facility] CPT-4: 72374 09/17/2016 [id number] EST. PATIENT, LEVEL III Diagnosis: Contusion of right lower leg, initial encounter[ICD10: S80.11XA] Alba Espinosa MD, [facility] CPT-4: 59264 08/03/2016 ([id number]) 64452 EST. P ATIENT, LEVEL IV Diagnosis: Essential (primary) hypertension[ICD10: I10] Diagnosis: Mixed hyperlipidemia[ICD10: E78.2] Diagnosis: Acute recurrent maxillary sinusitis[ICD10: J01.01] Diagnosis: Chronic obstructive pulmonary disease with (acute) exacerbation[ICD10: J44.1] Kathy Espinosa MD, [facility] CPT-4: 84979 07/25/2016 ([id number]) 59475 EST. P ATIENT, LEVEL IV Diagnosis: Essential (primary) hypertension[ICD10: I10] Diagnosis: Gastro-esophageal reflux disease without esophagitis[ICD10: K21.9] Diagnosis: Generalized anxiety disorder[ICD10: F41.1] Diagnosis: Major depressive disorder, recurrent, mild[ICD10: F33.0] [facility] CPT-4: 92817 03/22/2016 ([id number]) 68553 EST. P ATIENT, LEVEL IV Diagnosis: Essential (primary) hypertension[ICD10: I10] Diagnosis: Coronary angioplasty status[ICD10: Z98.61] Diagnosis: Hyperlipidemia, unspecified[ICD10: E78.5] Diagnosis: Major depressive disorder, recurrent, moderate[ICD10: F33.1] Kathy Espinosa MD, [facility] CPT-4: 26169 01/12/2016 ([id number]) 28998 EST. P ATIENT, LEVEL IV Diagnosis: Essential (primary) hypertension[ICD10: I10] Diagnosis: Gastro-esophageal reflux disease without esophagitis[ICD10: K21.9] Kathy Espinosa MD, [facility] CPT-4: 27334 10/13/2015 ([id number]) 84136 EST. P ATIENT, LEVEL IV Diagnosis: Gastro-esophageal reflux disease without esophagitis[ICD10: K21.9] Diagnosis: Essential (primary) hypertension[ICD10: I10] Diagnosis: Coronary angioplasty status[ICD10: Z98.61] [facility], [facility] CPT-4: 15426 09/13/2015 ([id number]) OFFICE [facility] - LEVEL 4 Diagnosis: Hyperlipidemia, unspecified[ICD10: E78.5] Diagnosis: Personal history of other diseases of the circulatory system[ICD10: Z86.79] Diagnosis: Unspecified osteoarthritis, unspecified site[ICD10: M19.90] Diagnosis: Polyneuropathy, unspecified[ICD10: G62.9] [facility], [facility] CPT-4: 83642 07/05/2015 Plan of Care Planned Activity Notes C odes Status Date Visit Plan: Contusion-right lower leg-im proving but pain and swelling in right lower extremity has worsened-will obtain venous doppler to r/o DVT-continues ice, elevation, anti inflammatories as directed. Instructed patient and his we will call them with the results of the venous doppler. 01/21/2017 Appointment: [phone] [facility] [place] (15 min) Moderate 01/21/2017 Patient Education: [...] current medications. 12/04/2016 [facility]ment[facility] [place] (15 min) Moderate 12/04/2016 Patient Education: [...] care surrogate. 2016 Appointment: Alba Fajardo [facility]Ptel: [phone] [facility] [facility] - Annual Wellness Visit 11/16/2016 Patient [...] acute concerns. 11/14/2016 Appointment: [phone] [facility] (15 min) Moderate 11/14/2016 Patient Education: Patient Medication Summary Completed 11/14/2016 Patient Education: Obesity Completed 11/14/2016 Appointment: [facility] [facility] (15 min) Moderate 10/24/2016 Visit Plan: URI [...] pain. 08/03/2016 Appointment: Amanda Romero WPtel: [phone] [phone] (15 min) Moderate 08/03/2016 Patient Education: Patient [...] show improvement. 07/25/2016 Appointment: [facility] [facility] (15 min) Moderate 07/25/2016 Patient Education: Patient [...] Completed 03/22/2016 Visit Plan: Hypertension - well control ed - continue with current medications, continue [...] current medications. 01/12/2016 Appointment: Kathy Espinosa WPtel: [facility] (15 min) Moderate 01/12/2016 Patient Education: Patient Medication Summary Completed 01/12/2016 Patient Education: Obesity Completed 01/12/2016 Patient Education: Hypertension Completed 01/12/2016 Appointment: Kathy Espinosa WPtel: [facility]note 3[facility] [place] (15 min) Moderate 12/01/2015 Visit Plan: [...] not improving. 10/13/2015 Appointment: Kathy Espinosa WPtel: [facility][note 3]5 [facility] (15 min) Moderate 10/13/2015 Patient Education: Patient Medication Summary Completed 10/13/2015 Patient Education: Hypertension Completed 10/13/2015 Visit Plan: Hypertension - well control ed - continue with current medications, continue [...] TWICE DAILY 09/13/2015 Appointment: Kathy Espinosa WPtel: [facility][note 3]5 [facility] (15 min) Moderate 09/13/2015 Patient Education: Patient Medication Summary Completed 09/13/2015 Patient Education: Hypertension Completed 09/13/2015 Appointment: Kathy Espinosa WPtel: [facility]note 3[facility] [place] (15 min) Moderate 08/09/2015 Visit Plan: Hyperlipidemia [...] and lipitor. 07/05/2015 Appointment: Kathy Espinosa WPtel: [facility] 3[facility] [facility] 07/05/2015 Patient Education: Patient Medication [...] INCREASE THE PANTOPRAZOLE TO 40MG TWICE DAILY probiotics - Culture lle, [place] gerardo jaimesh, or generic . URI - Pt advised [...]
--- OUTSIDE RECORDS SUMMARY | 2020-04-12 22:23 | XMS REPORT | CCD ---
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 Name Role Phone PP Unavailable CCM Unavailable Summary Purpose Interface Exchange Insurance Providers Payer name Policy type / Coverage type Covered republican ID Effective Begin Date Effective End Date WPS Medicare Part B Medicare Part B [id number] Unknown Cigna Medicare Part B 36 [id number] Unknown Family history Grandfather Diagnosis Age At Onset lung cancer Unknown Runs in the family Diagnosis Age At Onset Cancer Unknown Grandfather Diagnosis Age At Onset Cancer Unknown Social History Social History Element Codes Description Effective Dates Marital status Unknown M arried Nitza 07/05/2015 Number of children Unknown 3 07/05/2015 Employment Unknown Retir ed 07/05/[address]: 0905833 Quit over 10 years ago 07/05/[address]: 192671 Currently drinks alcohol beer 07/05/2015 Allergies, Adverse [...] Date Stop Date Sta tus Fill Instructions Crestor 10 mg tablet RxNorm: 432493 1 Tablet(s) PO every other day 11/03/2018 01/26/2020 Ac tive Zithromax Z-Ralph 250 mg tablet RxNorm: 152856 1 Tablet(s) PO UD 10/13/2018 10/12/2018 Inactive Zithromax Z-Ralph 250 mg tablet RxNorm: 161319 1 Tablet(s) PO UD 10/13/2018 10/17/2018 Inactive escitalopram 20 mg t ablet RxNorm: 725645 Tablet(s) TAKE ONE & ONE-HALF TABLETS BY MOUTH IN THE EVENING 10/07/2018 No Stop Date Active Keflex 500 mg capsule RxNorm: 935655 1 Capsule(s) PO TID 10/03/2018 10/09/2018 Inactive Kenalog 40 mg/mL jenni pension for injection RxNorm: 6404258 Milliliter(s) Inj 10/03/2018 10/03/2018 In active naproxen 500 mg tablet RxNorm: 614964 1 Tablet(s) BID as needed for pain 09/24/2018 03/22/2019 Ac tive pantoprazole 40 mg t ablet,delayed release RxNorm: 696184 1 Tablet(s) BID 09/24/2018 12/17/2019 Ac tive Kenalog 40 mg/mL jenni pension for injection RxNorm: 9543308 1 Milliliter(s) Inj 08/25/2018 08/25/2018 In active pantoprazole 40 mg t ablet,delayed release RxNorm: 747999 TAKE 1 TABLET BY MOUT H TWICE DAILY 06/24/2018 09/23/2018 Inactive betamethasone diprop ionate 0.05 % topical cream RxNorm: 654897 1 Application TOP BID as needed 06/16/2018 No Stop Date Active prednisone 20 mg tablet RxNorm: 901117 2 Tablet(s) PO daily 06/16/2018 06/20/2018 Inactive Kenalog 40 mg/mL jenni pension for injection RxNorm: 5186145 1 Milliliter(s) Inj 06/16/2018 06/16/2018 In active naproxen 500 mg tablet RxNorm: 865148 TAKE 1 TABLET BY MOUTH TWICE DAILY NE EDED FOR PAIN 05/13/2018 09/23/2018 Inactive naproxen 500 mg tablet RxNorm: 292527 TAKE ONE TABLET BY MOUTH TWICE DAILY NEEDED FOR PAIN 01/07/2018 05/12/2018 Inactive escitalopram 20 mg t ablet RxNorm: 339387 TAKE ONE & ONE-HALF T ABLETS BY MOUTH IN THE EVENING 12/16/2017 10/06/2018 Inactive pantoprazole 40 mg t ablet,delayed release RxNorm: 962765 1 Tablet(s) PO BID 11/21/2017 03/20/2018 In active Crestor 10 mg tablet RxNorm: 707923 1 Tablet(s) PO every other day 10/07/2017 11/02/2018 In active naproxen 500 mg tablet RxNorm: 857198 TAKE ONE TABLET BY MOUTH TWICE DAILY NEEDED FOR PAIN 06/27/2017 12/23/2017 Inactive escitalopram 20 mg t ablet RxNorm: 374363 1 Tablet(s) PO QPM 06/03/2017 05/28/2018 Inactive pantoprazole 40 mg t ablet,delayed release RxNorm: 963539 1 Tablet(s) PO BID 03/19/2017 05/07/2017 In active naproxen 500 mg tablet RxNorm: 826481 TAKE ONE TABLET BY MOUTH TWICE DAILY NEEDED FOR PAIN 02/11/2017 06/10/2017 Inactive naproxen 500 mg tablet RxNorm: 301834 TAKE ONE TABLET BY MOUTH TWICE DAILY NEEDED FOR PAIN 12/14/2016 02/10/2017 Inactive escitalopram 20 mg t ablet RxNorm: 755082 1.5 Tablet(s) PO QPM 12/04/2016 06/02/2017 Inactive buspirone 5 mg tablet RxNorm: 099213 1 Tablet(s) PO BID 11/14/2016 12/03/2016 Inactive amoxicillin 500 mg c apsule RxNorm: 215953 1 Capsule(s) PO TID 09/17/2016 09/26/2016 Inactive prednisone 20 mg tablet RxNorm: 555117 2 Tablet(s) PO daily 09/17/2016 09/21/2016 Inactive escitalopram 20 mg t ablet RxNorm: 012705 1 Tablet(s) PO QPM 08/28/2016 12/03/2016 Inactive naproxen 500 mg tablet RxNorm: 961652 TAKE ONE TABLET BY MOUTH TWICE DAILY NEEDED FOR PAIN 08/01/2016 11/28/2016 Inactive sulfamethoxazole 800 mg-trimethoprim 160 mg tablet RxNorm: 742402 1 Tablet(s) PO BID 07/25/2016 07/31/2016 Inactive Kenalog 40 mg/mL jenni pension for injection RxNorm: 1977008 Milliliter(s) Inj 07/25/2016 07/25/2016 In active Symbicort 80 mcg-4.5 mcg/actuation HFA aerosol inhaler RxNorm: 5128731 2 INH QHS 07/25/2016 09/11/2016 In active escitalopram 20 mg t ablet RxNorm: 236001 1 Tablet(s) PO QPM 03/22/2016 08/27/2016 Inactive alprazolam 0.5 mg di sintegrating tablet RxNorm: 491133 1 Tablet(s) PO TID as needed anxiety 03/22/2016 11/13/2016 Inactive atorvastatin 20 mg t ablet RxNorm: 154102 1 Tablet(s) PO daily 01/12/2016 10/06/2017 Inactive Lexapro 10 mg tablet RxNorm: 161703 1 Tablet(s) PO QPM 01/12/2016 03/21/2016 Inactive pantoprazole 40 mg t ablet,delayed release RxNorm: 403379 1 Tablet(s) PO daily 10/13/2015 11/11/2015 In active pantoprazole 40 mg t ablet,delayed release RxNorm: 087787 1 Tablet(s) PO BID 09/13/2015 10/12/2015 In active naproxen 500 mg tablet RxNorm: 279775 Tablet(s) PO BID as needed for pain 07/05/2015 07/31/2016 In active folic acid 400 mcg t ablet RxNorm: 145018 1 Tablet(s) PO daily No Start Date Active Vitamin B12 500 mcg RxNorm: 2000 Microgram(s) PO daily No Start Date Active Toprol XL 50 mg tabl et,extended release RxNorm: 060215 1 Tablet(s) PO daily No Start Date Active Tudorza Pressair 400 mcg/actuation breath activated RxNorm: 2757543 1 INH QAM No Start Date Active aspirin 81 mg capsul e,delayed release RxNorm: 350206 1 Capsule(s) PO daily No Start Date Active Incruse Ellipta 62.5 mcg/actuation powder for inhalation RxNorm: 5286594 1 INH daily No Start Date Active clopidogrel 75 mg ta blet RxNorm: 728502 1 Tablet(s) PO daily No Start Date Active Symbicort 80 mcg-4.5 mcg/actuation HFA aerosol inhaler RxNorm: 7960939 2 INH QHS No Start Date 07/24/2016 Inactive pantoprazole 40 mg t ablet,delayed release RxNorm: 191813 1 Tablet(s) PO daily No Start Date 09/12/2015 Inactive atorvastatin 40 mg t ablet RxNorm: 857950 1 Tablet(s) PO daily No Start Date 01/11/2016 Inactive furosemide 20 mg tablet RxNorm: 006389 1 Tablet(s) PO daily No Start Date 09/11/2016 Inactive naproxen 500 mg tablet RxNorm: 848709 Tablet(s) PO TID No Start Date 07/04/2015 Inactive Medication Administered Medication Codes Instruc tions Start Date Status Kenalog 40 mg/mL suspension for injection RxNorm: 5110910 Milliliter 10/03/2018 No longer Active Kenalog 40 mg/mL suspension for injection RxNorm: 3726699 1Milliliter 08/25/2018 N o longer Active Kenalog 40 mg/mL suspension for injection RxNorm: 7770408 1Milliliter 06/16/2018 N o longer Active Kenalog 40 mg/mL suspension for injection RxNorm: 8041402 Milliliter 07/25/2016 No longer Active Immunizations Vaccine [...] 29.1 % 08/20/2018 Cbc With Differential Ord2 Nicollet% 8.0 % 08/20/2018 Cbc With Differential Ord2 MCH 30.1 pg 08/20/2018 Cbc With Differential Ord2 MCHC 33.7 pg 08/20/2018 Cbc With Differential Ord2 Eos% 1.9 % 08/20/2018 Cbc With Differential Ord2 Baso% 0.4 % 08/20/2018 Cbc With Differential Ord2 PLT 159 K/ul 08/20/2018 Cbc With Differential Ord2 Neut ABS# 2.94 K/ul 08/20/2018 Cbc With Differential Ord2 RDW 13.0 % 08/20/2018 Cbc With Differential Ord2 Lymph ABS# 1.41 K/ul 08/20/2018 Cbc With Differential Ord2 Nicollet ABS# 0.4 K/ul 08/20/2018 Cbc With Differential Ord2 Eos ABS# 0.1 K/ul 08/20/2018 Cbc With Differential Ord2 Baso ABS# 0.0 K/ul 08/20/2018 Tsh Ord6 TSH (3rd IS) 2.07 uIU/mL 08/20/2018 %Hba1C Dcz421 % HbA1c 45976-0 6.0 % 08/20/2018 %Hba1C Dgi536 Gluc Ave 126 mg/dL 08/20/2018 Comp Metabolic Fir077 NA 142 mEq/L 08/20/2018 Comp Metabolic Fzk951 K 4.2 mEq/L 08/20/2018 Comp Metabolic Awh079 CL 105 mEq/L 08/20/2018 Comp Metabolic Caq472 CO2 30.0 mEq/L 08/20/2018 Comp Metabolic Dgu039 AN ION GAP 11 08/20/2018 Comp Metabolic Ebn091 GL UCOSE 132 mg/dL 08/20/2018 Comp Metabolic Wwo648 Cr eat 1.3 mg/dL 08/20/2018 Comp Metabolic Yap710 eG FR 58 ml/min/1.73m2 08/20 Comp Metabolic Dzj866 BUN 19 mg/dL 08/20/2018 Comp Metabolic Qfz151 B/ C Ratio 14.8 Ratio 08/20/2018 Comp Metabolic Usj303 CA LCIUM 9.2 mg/dL 08/20/2018 Comp Metabolic Tnp059 AL K PHOS 72 U/L 08/20/2018 Comp Metabolic Oij266 T(SGOT) 21 U/L 08/20/2018 Comp Metabolic Awt894 AL T(SGPT) 20 U/L 08/20/2018 Comp Metabolic Ayu921 BI LI T 1.1 mg/dL 08/20/2018 Comp Metabolic Vlf591 AL BUMIN 4.3 g/dL 08/20/2018 Comp Metabolic Zkh128 TP RO 6.6 g/dL 08/20/2018 Comp Metabolic Liu859 GL OB 2.3 g/dL 08/20/2018 Comp Metabolic Zzx795 A/ G Ratio 1.9 Ratio 08/20/2018 Comp Metabolic Iac972 Os mo 287 mOsmo 08/20/2018 %Hba1C Xti234 % HbA1c 32534-8 5.9 % 11/20/2017 %Hba1C Rcl139 Gluc Ave 123 mg/dL 11/20/2017 B12 Hec484 B12 1130.00 pg/ml 11/19/2017 Total Psa Ord10 [...] 62.3 % 11/19/2017 Cbc With Differential Ord2 Lymph% 27.9 % 11/19/2017 Cbc With Differential Ord2 MCV 86.8 fl 11/19/2017 Cbc With Differential Ord2 Nicollet% 8.6 % 11/19/2017 Cbc With Differential Ord2 MCH 29.2 pg 11/19/2017 Cbc With Differential Ord2 MCHC 33.6 pg 11/19/2017 Cbc With Differential Ord2 Eos% 0.8 % 11/19/2017 Cbc With Differential Ord2 Baso% 0.4 % 11/19/2017 Cbc With Differential Ord2 PLT 159 K/ul 11/19/2017 Cbc With Differential Ord2 RDW 13.3 % 11/19/2017 Cbc With Differential Ord2 Neut ABS# 3.06 K/ul 11/19/2017 Cbc With Differential Ord2 Lymph ABS# 1.37 K/ul 11/19/2017 Cbc With Differential Ord2 Nicollet ABS# 0.4 K/ul 11/19/2017 Cbc With Differential Ord2 Eos ABS# 0.0 K/ul 11/19/2017 Cbc With Differential Ord2 Baso ABS# 0.0 K/ul 11/19/2017 Comp Metabolic Vqn171 NA 142 mEq/L 11/19/2017 Comp Metabolic Eqw249 K 4.3 mEq/L 11/19/2017 Comp Metabolic Nik262 CL 104 mEq/L 11/19/2017 Comp Metabolic Hig126 CO2 29.0 mEq/L 11/19/2017 Comp Metabolic Kdc233 AN ION GAP 13 11/19/2017 Comp Metabolic Pql485 GL UCOSE 132 mg/dL 11/19/2017 Comp Metabolic Elp879 Cr eat 1.2 mg/dL 11/19/2017 Comp Metabolic Dlq517 eG FR 63 ml/min/1.73m2 11/19 Comp Metabolic Xmg190 BUN 20 mg/dL 11/19/2017 Comp Metabolic Ron160 B/ C Ratio 16.8 Ratio 11/19/2017 Comp Metabolic Pnc919 CA LCIUM 9.3 mg/dL 11/19/2017 Comp Metabolic Pkg078 AL K PHOS 74 U/L 11/19/2017 Comp Metabolic Ktf073 T(SGOT) 15 U/L 11/19/2017 Comp Metabolic Azj631 AL T(SGPT) 15 U/L 11/19/2017 Comp Metabolic Adu127 BI LI T 0.9 mg/dL 11/19/2017 Comp Metabolic Sll032 AL BUMIN 4.3 g/dL 11/19/2017 Comp Metabolic Wdi838 TP RO 6.6 g/dL 11/19/2017 Comp Metabolic Bvd387 GL OB 2.3 g/dL 11/19/2017 Comp Metabolic Bze740 A/ G Ratio 1.9 Ratio 11/19/2017 Comp Metabolic Zmv723 Os mo 288 mOsmo 11/19/2017 Tsh Ord6 [...] 30.2 pg 11/16/2016 Cbc With Differential Ord2 Nicollet% 10.2 % 11/16/2016 Cbc With Differential Ord2 MCHC 33.6 pg 11/16/2016 Cbc With Differential Ord2 Eos% 1.5 % 11/16/2016 Cbc With Differential Ord2 Baso% 0.4 % 11/16/2016 Cbc With Differential Ord2 PLT 150 K/ul 11/16/2016 Cbc With Differential Ord2 RDW 13.5 % 11/16/2016 Cbc With Differential Ord2 Neut ABS# 2.76 K/ul 11/16/2016 Cbc With Differential Ord2 Lymph ABS# 1.46 K/ul 11/16/2016 Cbc With Differential Ord2 Nicollet ABS# 0.5 K/ul 11/16/2016 Cbc With Differential Ord2 Eos ABS# 0.1 K/ul 11/16/2016 Cbc With Differential Ord2 Baso ABS# 0.0 K/ul 11/16/2016 Comp Metabolic Pvt965 NA 141 mEq/L 11/16/2016 Comp Metabolic Bly191 K 4.2 mEq/L 11/16/2016 Comp Metabolic Cvq521 CL 106 mEq/L 11/16/2016 Comp Metabolic Gyb586 CO2 30.0 mEq/L 11/16/2016 Comp Metabolic Ynq284 AN ION GAP 9 11/16/2016 Comp Metabolic Wrd508 GL UCOSE 118 mg/dL 11/16/2016 Comp Metabolic Gor942 Cr eat 1.2 mg/dL 11/16/2016 Comp Metabolic Xrl962 eG FR 61 ml/min/1.73m2 11/16 Comp Metabolic Upn776 BUN 22 mg/dL 11/16/2016 Comp Metabolic Jdd161 B/ C Ratio 17.7 Ratio 11/16/2016 Comp Metabolic Qtj668 CA LCIUM 9.2 mg/dL 11/16/2016 Comp Metabolic Cqu698 AL K PHOS 91 U/L 11/16/2016 Comp Metabolic Huu797 T(SGOT) 16 U/L 11/16/2016 Comp Metabolic Nvq472 AL T(SGPT) 16 U/L 11/16/2016 Comp Metabolic Nxa532 BI LI T 0.9 mg/dL 11/16/2016 Comp Metabolic Ygy677 AL BUMIN 4.1 g/dL 11/16/2016 Comp Metabolic Ovp423 TP RO 6.4 g/dL 11/16/2016 Comp Metabolic Viv383 GL OB 2.3 g/dL 11/16/2016 Comp Metabolic Sau587 A/ G Ratio 1.8 Ratio 11/16/2016 Comp Metabolic Xpq675 Os mo 286 mOsmo 11/16/2016 Lipid Ord30 [...] 1.8 mg/dL 08/01/2015 B Type Natriuretic Peptide Adi7405 B-BALANCER SCALE 13.10 pg/ml 08/01/2015 Lipid Ord30 CHOL 188 [...] Ord2 RDW 14.7 % 08/01/2015 Comp Metabolic Ptx725 NA 138 mEq/L 08/01/2015 Comp Metabolic Mhy355 K 4.2 mEq/L 08/01/2015 Comp Metabolic Jlu653 CL 104 mEq/L 08/01/2015 Comp Metabolic Dny424 CO2 27.0 mEq/L 08/01/2015 Comp Metabolic Oux317 AN ION GAP 11 08/01/2015 Comp Metabolic Etu388 GL UCOSE 118 mg/dL 08/01/2015 Comp Metabolic Rah442 Cr eat 1.2 mg/dL 08/01/2015 Comp Metabolic Jew451 eG FR 66 ml/min/1.73m2 08/01 Comp Metabolic Vab375 BUN 19 mg/dL 08/01/2015 Comp Metabolic Uzu620 B/ C Ratio 16.4 Ratio 08/01/2015 Comp Metabolic Lnl251 CA LCIUM 8.7 mg/dL 08/01/2015 Comp Metabolic Tmy599 AL K PHOS 85 U/L 08/01/2015 Comp Metabolic Syh760 T(SGOT) 16 U/L 08/01/2015 Comp Metabolic Deo078 AL T(SGPT) 20 U/L 08/01/2015 Comp Metabolic Wex941 BI LI T 0.7 mg/dL 08/01/2015 Comp Metabolic Fzx814 AL BUMIN 3.9 g/dL 08/01/2015 Comp Metabolic Jrs679 TP RO 6.2 g/dL 08/01/2015 Comp Metabolic Lqv756 GL OB 2.4 g/dL 08/01/2015 Comp Metabolic Rqy713 A/ G Ratio 1.6 Ratio 08/01/2015 Comp Metabolic Juz022 Os mo 279 mOsmo 08/01/2015 Tsh Ord6 hTSH II 1.79 uIU/mL 08/01/2015 Sed Rate Ord21 ESR 1 mm/hr 08/01/2015 Tsh Ord6 hTSH II 2.43 uIU/mL 07/07/2015 Folate Ord36 Folate 7.62 ng/mL 07/07/2015 B12 Unc635 B12 228.00 pg/ml 07/07/2015 Review of Systems [...] Location: face 08/25/2018 on 3 on left adventism, 2 on right adventism and 1 each on dorsum of hands [...] Location: face 11/04/2017 on 3 on left adventism, 2 on right adventism and 1 each on dorsum of hands [...] clear 11/14/2016 None Full Exam - General 1993 [...] CPT-4: J3301 08/25/2018 THER/PROPH/DIAG INJ SC/IM CPT-4: 35125 06/16/2018 TRIAMCINOLONE ACET I [place] NOS CPT-4: J3301 06/16/2018 PPPS, SUBSEQ VISIT CPT- 4: G0439 11/19/2017 DESTRUCT PREMALG LESION CPT-4: 08644 11/04/2017 DESTRUCT PREMALG LES 2-14 CPT-4: 18346 11/04/2017 PPPS, SUBSEQ VISIT CPT- 4: G0439 11/16/2016 THER/PROPH/DIAG INJ SC/IM CPT-4: 69000 07/25/2016 TRIAMCINOLONE ACET I [place] NOS CPT-4: J3301 07/25/2016 Vital Signs Date Vital 10/03/2018 Blood Pressure 1: 134/74 Code: 8480-6 BMI: 40.1 Code: 89329-7 Heart Rate 1: 55 bpm Height: 5'7" SpO2: 97% Temperature: 36.7 (C ) / 98.1 (F) Weight: 256 lbs 08/25/2018 Blood Pressure 1: 128/68 Code: 8480-6 BMI: 39.8 Code: 71171-8 Heart Rate 1: 55 bpm Height: 5'7" SpO2: 97% Weight: 254 lbs 06/16/2018 Blood Pressure 1: 120/67 Code: 8480-6 BMI: 40.1 Code: 59693-3 Heart Rate 1: 83 bpm Height: 5'7" SpO2: 95% Weight: 256 lbs 04/24/2018 Blood Pressure 1: 134/76 Code: 8480-6 BMI: 39.3 Code: 80251-0 Heart Rate 1: 55 bpm Height: 5'7" SpO2: 95% Weight: 251 lbs 11/19/2017 Blood Pressure 1: 130/62 Code: 8480-6 BMI: 38.1 Code: 35412-3 Heart Rate 1: 73 bpm Height: 5'7" SpO2: 93% Waist Measure (cm): 99 cm Weight: 243 lbs 11/04/2017 Blood Pressure 1: 136/68 Code: 8480-6 BMI: 38.2 Code: 37368-2 Heart Rate 1: 61 bpm Height: 5'7" SpO2: 98% Weight: 244 lbs 10/07/2017 Blood Pressure 1: 150/70 Code: 8480-6 BMI: 39.5 Code: 36049-8 Heart Rate 1: 65 bpm Height: 5'7" SpO2: 97% Weight: 252 lbs 06/03/2017 Blood Pressure 1: 140/70 Code: 8480-6 BMI: 37.9 Code: 44505-8 Heart Rate 1: 66 bpm Height: 5'7" SpO2: 96% Weight: 242 lbs 03/19/2017 Blood Pressure 1: 136/82 Code: 8480-6 BMI: 38.8 Code: 57383-1 Heart Rate 1: 58 bpm Height: 5'7" SpO2: 94% Weight: 247 lbs 8 oz 01/21/2017 Blood Pressure 1: 136/74 Code: 8480-6 BMI: 39.1 Code: 89341-7 Heart Rate 1: 58 bpm Height: 5'7" SpO2: 97% Weight: 249 lbs 8 oz 12/04/2016 Blood Pressure 1: 136/72 Code: 8480-6 Heart Rate 1: 55 bpm Height: 5'7" SpO2: 99% Weight: 11/16/2016 Blood Pressure 1: 124/76 Code: 8480-6 BMI: 39.2 Code: 48611-6 Heart Rate 1: 62 bpm Height: 5'7" SpO2: 96% Waist Measure (cm): 104 cm Weight: 250 lbs 11/14/2016 Blood Pressure 1: 152/60 Code: 8480-6 BMI: 39.8 Code: 06957-2 Heart Rate 1: 63 bpm Height: 5'7" SpO2: 94% Weight: 254 lbs 09/17/2016 Blood Pressure 1: 138/70 Code: 8480-6 BMI: 40.3 Code: 46941-6 Heart Rate 1: 60 bpm Height: 5'7" SpO2: 96% Weight: 257 lbs 08/03/2016 Blood Pressure 1: 148/78 Code: 8480-6 BMI: 39.9 Code: 92979-4 Heart Rate 1: 50 bpm Height: 5'7" SpO2: 97% Weight: 255 lbs 07/25/2016 Blood Pressure 1: 130/68 Code: 8480-6 BMI: 39.9 Code: 31492-3 Heart Rate 1: 61 bpm Height: 5'7" SpO2: 95% Weight: 255 lbs 03/22/2016 Blood Pressure 1: 136/76 Code: 8480-6 BMI: 39.0 Code: 24348-3 Heart Rate 1: 60 bpm Height: 5'7" SpO2: 98% Weight: 249 lbs 01/12/2016 Blood Pressure 1: 146/76 Code: 8480-6 BMI: 37.8 Code: 52985-1 Heart Rate 1: 59 bpm Height: 5'7" SpO2: 98% Weight: 241 lbs 8 oz 10/13/2015 Blood Pressure 1: 136/72 Code: 8480-6 BMI: 37.6 Code: 10945-7 Heart Rate 1: 70 bpm Height: 5'7" SpO2: 99% Weight: 240 lbs 09/13/2015 Blood Pressure 1: 140/80 Code: 8480-6 BMI: 37.2 Code: 44270-9 Heart Rate 1: 64 bpm Height: 5'7" SpO2: 97% Weight: 237 lbs 8 oz 07/05/2015 Blood Pressure 1: 130/70 Code: 8480-6 Blood Pressure 1: 170/84 Code: 8480-6 BMI: 35.9 Code: 07813-5 Heart Rate 1: 67 bpm Height: 5'7" [...] Pressure (self reported) borderline (120/80 - 139/89) 03/10/2 017 None Annual Medicare Wellness Exam [place]oles [...] Encounters Encounter Performer Loca tion Codes Date [id number] [id number] EST. P ATIENT, LEVEL III Diagnosis: Cough[ICD10: R05] Diagnosis: Acute upper respiratory infection, unspecified[ICD10: J06.9] [facility] CPT-4: 56468 10/03/2018 ([id number]) 69230 EST. P ATIENT, LEVEL IV Diagnosis: Essential (primary) hypertension[ICD10: I10] Diagnosis: Mixed hyperlipidemia[ICD10: E78.2] Diagnosis: Other allergic rhinitis[ICD10: J30.89] [facility] CPT-4: 17758 08/25/2018 [id number] EST. PATIENT, LEVEL III Diagnosis: Other pruritus[ICD10: L29.8] Diagnosis: Allergic contact dermatitis due to plants, except food[ICD10: L23.7] Alba Espinosa MD, [facility] CPT-4: 39175 06/16/2018 ([id number]) 53552 EST. P ATIENT, LEVEL IV Diagnosis: Essential (primary) hypertension[ICD10: I10] Diagnosis: Allergic dermatitis of left upper eyelid[ICD10: H01.114] Diagnosis: Allergic rhinitis due to pollen[ICD10: J30.1] [facility] CPT-4: 13616 04/24/2018 ([id number]) 63930 EST. P ATIENT, LEVEL IV Diagnosis: Essential (primary) hypertension[ICD10: I10] Diagnosis: Mixed hyperlipidemia[ICD10: E78.2] Diagnosis: Actinic keratosis[ICD10: L57.0] Kathy Espinosa MD, [facility] CPT-4: 20170 11/04/2017 ([id number]) 67910 EST. P ATIENT, LEVEL IV Diagnosis: Essential (primary) hypertension[ICD10: I10] Diagnosis: Cervicalgia[ICD10: M54.2] Diagnosis: Myalgia[ICD10: M79.1] Kathy Espinosa MD, [facility] CPT-4: 45304 10/07/2017 ([id number]) 96131 EST. P ATIENT, LEVEL IV Diagnosis: Essential (primary) hypertension[ICD10: I10] Diagnosis: Major depressive disorder, recurrent, mild[ICD10: F33.0] Diagnosis: Generalized anxiety disorder[ICD10: F41.1] [facility] CPT-4: 90207 06/03/2017 ([id number]) 81016 EST. P ATIENT, LEVEL IV Diagnosis: Essential (primary) hypertension[ICD10: I10] Diagnosis: Mixed hyperlipidemia[ICD10: E78.2] Diagnosis: Low back pain[ICD10: M54.5] Kathy Espinosa MD, [facility] CPT-4: 27505 03/19/2017 ([id number]) 22092 EST. P ATIENT, LEVEL III Diagnosis: Pain in right lower leg[ICD10: M79.661] Diagnosis: Localized edema[ICD10: R60.0] Diagnosis: Contusion of right lower leg, initial encounter[ICD10: S80.11XA] Amanda Espinosa MD, [facility] CPT-4: 35727 01/21/2017 ([id number]) 90996 EST. P ATIENT, LEVEL IV Diagnosis: Mixed hyperlipidemia[ICD10: E78.2] Diagnosis: Major depressive disorder, recurrent, moderate[ICD10: F33.1] Kathy Espinosa MD, [facility] CPT-4: 55128 12/04/2016 ([id number]) 65146 EST. P ATIENT, LEVEL IV Diagnosis: Mixed hyperlipidemia[ICD10: E78.2] Diagnosis: Major depressive disorder, recurrent, mild[ICD10: F33.0] Diagnosis: Generalized anxiety disorder[ICD10: F41.1] Diagnosis: Essential (primary) hypertension[ICD10: I10] Diagnosis: Chronic obstructive pulmonary disease with (acute) exacerbation[ICD10: J44.1] Kathy Espinosa MD, [facility] CPT-4: 65618 11/14/2016 80585 EST. PATIENT, LEVEL III Diagnosis: Acute laryngopharyngitis[ICD10: J06.0] Diagnosis: Other allergic rhinitis[ICD10: J30.89] Alba Espinosa MD, [facility] CPT-4: 14835 09/17/2016 55496 EST. PATIENT, LEVEL III Diagnosis: Contusion of right lower leg, initial encounter[ICD10: S80.11XA] Alba Espinosa MD, [facility] CPT-4: 15075 08/03/2016 ([id number]) 02322 EST. P ATIENT, LEVEL IV Diagnosis: Essential (primary) hypertension[ICD10: I10] Diagnosis: Mixed hyperlipidemia[ICD10: E78.2] Diagnosis: Acute recurrent maxillary sinusitis[ICD10: J01.01] Diagnosis: Chronic obstructive pulmonary disease with (acute) exacerbation[ICD10: J44.1] Kathy Espinosa MD, [facility] CPT-4: 40845 07/25/2016 ([id number]) 80701 EST. P ATIENT, LEVEL IV Diagnosis: Essential (primary) hypertension[ICD10: I10] Diagnosis: Gastro-esophageal reflux disease without esophagitis[ICD10: K21.9] Diagnosis: Generalized anxiety disorder[ICD10: F41.1] Diagnosis: Major depressive disorder, recurrent, mild[ICD10: F33.0] Kathy Espinosa MD, [facility] CPT-4: 00079 03/22/2016 ([id number]) 21449 EST. P ATIENT, LEVEL IV Diagnosis: Essential (primary) hypertension[ICD10: I10] Diagnosis: Coronary angioplasty status[ICD10: Z98.61] Diagnosis: Hyperlipidemia, unspecified[ICD10: E78.5] Diagnosis: Major depressive disorder, recurrent, moderate[ICD10: F33.1] Kathy Espinosa MD, [facility] CPT-4: 69947 01/12/2016 ([id number]) 76672 EST. P ATIENT, LEVEL IV Diagnosis: Essential (primary) hypertension[ICD10: I10] Diagnosis: Gastro-esophageal reflux disease without esophagitis[ICD10: K21.9] Kathy Espinosa MD, [facility] CPT-4: 56389 10/13/2015 ([id number]) 24884 EST. P ATIENT, LEVEL IV Diagnosis: Gastro-esophageal reflux disease without esophagitis[ICD10: K21.9] Diagnosis: Essential (primary) hypertension[ICD10: I10] Diagnosis: Coronary angioplasty status[ICD10: Z98.61] Kathy E[facility] CPT-4: 82646 09/13/2015 ([id number]) [facility] LEVEL 4 Diagnosis: Hyperlipidemia, unspecified[ICD10: E78.5] Diagnosis: Personal history of other diseases of the circulatory system[ICD10: Z86.79] Diagnosis: Unspecified osteoarthritis, unspecified site[ICD10: M19.90] Diagnosis: Polyneuropathy, unspecified[ICD10: G62.9] Kathy Espinosa MD, C CPT-4: [id number] 07/05/2015 Plan of Care Planned Activity Notes C odes Status Date Visit Plan: URI - Pt advised to inc rease fluids, vitamin C. Discussed natural and expected course of this diagnosis and need to alert me if symptoms do not follow expected course, or if any worse. RX sent to patient's pharmacy. 10/03/2018 Appointment: Amanda Romero WPtel: [phone] [phone] (30 min) Complex 10/03/2018 Patient Education: Patient Medication Summary Completed 10/03/2018 Visit Plan: Hypertension - well michelle akins [...] clinic 08/25/2018 Appointment: Kathy Espinosa WPtel: [phone] [phone] (15 min) Moderate 08/25/2018 Patient Education: [...] worsen. 06/16/2018 Appointment[phone] ([facility]) Moderate 06/16/2018 Patient Education: Patient Medication Summary Completed 06/16/2018 Patient Education: Poison Ashley Completed 06/16/2018 Appointment: Amanda Romero WPtel: [phone] [phone] [place] (15 min) Moderate 05/23/2018 Appointment: Kathy Espinosa WPtel: [phone] [phone] [place] (15 min) Moderate 05/15/2018 Visit [...] office 04/24/2018 Appointment: Kathy Espinosa WPtel: [address] [facility] [place] (15 min) Moderate 04/24/2018 Patient Education: Patient Medication Summary Completed 04/24/2018 Appointment: Kathy Espinosa WPtel: [phone] [facility] [place] (15 min) Moderate 02/25/2018 Appointment: Kathy Espinosa WPtel: [phone] [facility] [place] (15 min) Moderate 02/20/2018 Appointment: Kathy Espinosa WPtel: [facility]5 [facility] [place] (15 min) Moderate 02/13/2018 Patient [...] care surrogate. 11/19/2017 Appointment: Amanda Romero WPtel: [address] [place], [place] [id number] [facility] - Annual Wellness Visit 11/19/2017 [...] - one lesion each hand and on adventism x 3 lesions and 2 lesions right adventism 11/04/2017 Appointment: Kathy Espinosa WPtel: [facility]5 [facility] (15 min) Moderate 11/04/2017 Patient Education: [...] two weeks. 10/07/2017 Appointment: Kathy Espinosa WPtel: [facility]2 [facility] (15 min) Moderate 10/07/2017 Patient Education: [...] flu shots 06/03/2017 Appointment: Kathy Espinosa WPtel: [facility]9 [facility] (15 min) Moderate 06/03/2017 Patient Education: Patient Medication Summary Completed 06/03/2017 Patient Education: Obesity Completed 06/03/2017 App[facility]ment: [facility] [facility] Mod[facility] 05/22/2017 Visit Plan: [...] back 03/19/2017 Appointment: [phone] [place] (15 min) Moderate 03/19/2017 Patient Education: [...] doppler. 01/21/2017 [phone] [place] (15 min) Moderate 01/21/2017 Patient Education: [...] medications. 12/04/2016 Appointment: [phone] [place] (15 min) Moderate 12/04/2016 Patient [...] surrogate. 11/16/2016 Appointment: Alba Fajardo WPtel: [phone] [facility] [facility] - Annual Wellness Visit 11/16/2016 [...] App[facility]ment: [phone] [facility] (15 min) Moderate 11/14/2016 Patient Education: Patient Medication Summary Completed 11/14/2016 Patient Education: Obesity Completed 11/14/2016 App[facility]ment: [phone] (15 min) Moderate 10/24/2016 Visit Plan: [...] or pain. 08/03/2016 Appointment: [phone] (15 min) Moderate 08/03/2016 Patient Education: [...] symptoms do not show improvement. 07/25/2016 Appointment: Francisca Kathy WPtel[facility] (15 min) Moderate 07/25/2016 Patient Education: [...] medications. 01/12/2016 Appointment: Kathy Espinosa WPtel: [phone] [facility] (15 min) Moderate 01/12/2016 Patient Education: Patient Medication Summary Completed 01/12/2016 Patient Education: Obesity Completed 01/12/2016 Patient Education: Hypertension Completed 01/12/2016 Appointment: Kathy Espinosa WPtel: [phone] [facility] (15 min) Moderate 12/01/2015 Visit Plan: [...] not improving. 10/13/2015 Appointment: Kathy Espinosa WPtel: [facility]2 [facility] (15 min) Moderate 10/13/2015 Patient Education: [...] DAILY 09/13/2015 Appointment: Kathy Espinosa WPtel: [phone] [facility] [place] (15 min) Moderate 09/13/2015 Patient Education: Patient Medication Summary Completed 09/13/2015 Patient Education: Hypertension Completed 09/13/2015 Appointment: Kathy Espinosa WPtel: [facility] (15 min) Moderate 08/09/2015 Visit Plan: [...] and lipitor. 07/05/2015 Appointment: Kathy Espinosa WPtel: [phone] [facility]66[facility] New Patient 07/05/2015 Patient Education: Patient Medication [...] INCREASE THE PANTOPRAZOLE TO 40MG TWICE DAILY milagros 180mg daily x 2 weeks zatador [...] acutely worsens - call the office . Hematoma, right lo wer leg, anterior [...] we will send a refer ral to [facility] for physical therapy for your neck [...] cough Kenalog injection given today in clinic . Hypertension - wel l controlled - [...] - one lesion each hand and on adventism x 3 lesions and 2 lesions right adventism we will check a danielle min b12 [...]
--- OUTSIDE RECORDS SUMMARY | 2020-04-12 22:24 | XMS REPORT | CCD ---
Author Author Joaquín Espinosa Organization Kathy Espinosa MD, [facility] Address [address] [place] [address] Phone Care Team Providers Care Opera Singer Name Role Phone PP Unavailable CCM Unavailable Summary Purpose Interface Exchange Insurance Providers Payer name Policy type / Coverage type Covered libertarian ID Effective Begin Date Effective End Date WPS Medicare Part B Medicare Part B [id number] Unknown Cigna Medicare Part B 36 [id number] Unknown Family history Grandfather Diagnosis Age At Onset lung cancer Unknown Runs in the family Diagnosis Age At Onset Cancer Unknown Grandfather Diagnosis Age At Onset Cancer Unknown Social History Social History Element Codes Description Effective Dates Marital status Unknown M arried Nitza 07/05/2015 Number of children Unknown 3 07/05/2015 Employment Unknown Retir ed 07/05/[address]: 5883783 Quit over 10 years ago 07/05/[address]: 712809 Currently drinks alcohol beer 07/05/2015 Allergies, Adverse [...] Date Stop Date Sta tus Fill Instructions Zithromax Z-Ralph 250 mg tablet RxNorm: 482345 1 Tablet(s) PO UD 10/13/2018 10/17/2018 Active Zithromax Z-Ralph 250 mg tablet RxNorm: 817844 1 Tablet(s) PO UD 10/13/2018 10/12/2018 Inactive escitalopram 20 mg t ablet RxNorm: 198753 Tablet(s) TAKE ONE & ONE-HALF TABLETS BY MOUTH IN THE EVENING 10/07/2018 No Stop Date Active Keflex 500 mg capsule RxNorm: 264073 1 Capsule(s) PO TID 10/03/2018 10/09/2018 Inactive Kenalog 40 mg/mL jenni pension for injection RxNorm: 7695587 Milliliter(s) Inj 10/03/2018 10/03/2018 In active naproxen 500 mg tablet RxNorm: 084033 1 Tablet(s) BID as needed for pain 09/24/2018 03/22/2019 Ac tive pantoprazole 40 mg t ablet,delayed release RxNorm: 186565 1 Tablet(s) BID 09/24/2018 12/17/2019 Ac tive Kenalog 40 mg/mL jenni pension for injection RxNorm: 3586251 1 Milliliter(s) Inj 08/25/2018 08/25/2018 In active pantoprazole 40 mg t ablet,delayed release RxNorm: 451217 TAKE 1 TABLET BY MOUT H TWICE DAILY 06/24/2018 09/23/2018 Inactive betamethasone diprop ionate 0.05 % topical cream RxNorm: 785935 1 Application TOP BID as needed 06/16/2018 No Stop Date Active prednisone 20 mg tablet RxNorm: 266561 2 Tablet(s) PO daily 06/16/2018 06/20/2018 Inactive Kenalog 40 mg/mL jenni pension for injection RxNorm: 8526160 1 Milliliter(s) Inj 06/16/2018 06/16/2018 In active naproxen 500 mg tablet RxNorm: 095607 TAKE 1 TABLET BY MOUTH TWICE DAILY NE EDED FOR PAIN 05/13/2018 09/23/2018 Inactive naproxen 500 mg tablet RxNorm: 993941 TAKE ONE TABLET BY MOUTH TWICE DAILY NEEDED FOR PAIN 01/07/2018 05/12/2018 Inactive escitalopram 20 mg t ablet RxNorm: 568780 TAKE ONE & ONE-HALF T ABLETS BY MOUTH IN THE EVENING 12/16/2017 10/06/2018 Inactive pantoprazole 40 mg t ablet,delayed release RxNorm: 773360 1 Tablet(s) PO BID 11/21/2017 03/20/2018 In active Crestor 10 mg tablet RxNorm: 119301 1 Tablet(s) PO every other day 10/07/2017 06/28/2019 Ac tive naproxen 500 mg tablet RxNorm: 278476 TAKE ONE TABLET BY MOUTH TWICE DAILY NEEDED FOR PAIN 06/27/2017 12/23/2017 Inactive escitalopram 20 mg t ablet RxNorm: 298670 1 Tablet(s) PO QPM 06/03/2017 05/28/2018 Inactive pantoprazole 40 mg t ablet,delayed release RxNorm: 343705 1 Tablet(s) PO BID 03/19/2017 05/07/2017 In active naproxen 500 mg tablet RxNorm: 686572 TAKE ONE TABLET BY MOUTH TWICE DAILY NEEDED FOR PAIN 02/11/2017 06/10/2017 Inactive naproxen 500 mg tablet RxNorm: 101968 TAKE ONE TABLET BY MOUTH TWICE DAILY NEEDED FOR PAIN 12/14/2016 02/10/2017 Inactive escitalopram 20 mg t ablet RxNorm: 977447 1.5 Tablet(s) PO QPM 12/04/2016 06/02/2017 Inactive buspirone 5 mg tablet RxNorm: 784478 1 Tablet(s) PO BID 11/14/2016 12/03/2016 Inactive amoxicillin 500 mg c apsule RxNorm: 976323 1 Capsule(s) PO TID 09/17/2016 09/26/2016 Inactive prednisone 20 mg tablet RxNorm: 198787 2 Tablet(s) PO daily 09/17/2016 09/21/2016 Inactive escitalopram 20 mg t ablet RxNorm: 491182 1 Tablet(s) PO QPM 08/28/2016 12/03/2016 Inactive naproxen 500 mg tablet RxNorm: 725604 TAKE ONE TABLET BY MOUTH TWICE DAILY NEEDED FOR PAIN 08/01/2016 11/28/2016 Inactive sulfamethoxazole 800 mg-trimethoprim 160 mg tablet RxNorm: 484989 1 Tablet(s) PO BID 07/25/2016 07/31/2016 Inactive Kenalog 40 mg/mL jenni pension for injection RxNorm: 9994682 Milliliter(s) Inj 07/25/2016 07/25/2016 In active Symbicort 80 mcg-4.5 mcg/actuation HFA aerosol inhaler RxNorm: 5314485 2 INH QHS 07/25/2016 09/11/2016 In active escitalopram 20 mg t ablet RxNorm: 673591 1 Tablet(s) PO QPM 03/22/2016 08/27/2016 Inactive alprazolam 0.5 mg di sintegrating tablet RxNorm: 196812 1 Tablet(s) PO TID as needed anxiety 03/22/2016 11/13/2016 Inactive atorvastatin 20 mg t ablet RxNorm: 314469 1 Tablet(s) PO daily 01/12/2016 10/06/2017 Inactive Lexapro 10 mg tablet RxNorm: 534284 1 Tablet(s) PO QPM 01/12/2016 03/21/2016 Inactive pantoprazole 40 mg t ablet,delayed release RxNorm: 122474 1 Tablet(s) PO daily 10/13/2015 11/11/2015 In active pantoprazole 40 mg t ablet,delayed release RxNorm: 497217 1 Tablet(s) PO BID 09/13/2015 10/12/2015 In active naproxen 500 mg tablet RxNorm: 196752 Tablet(s) PO BID as needed for pain 07/05/2015 07/31/2016 In active folic acid 400 mcg t ablet RxNorm: 697851 1 Tablet(s) PO daily No Start Date Active Vitamin B12 500 mcg RxNorm: 2000 Microgram(s) PO daily No Start Date Active Toprol XL 50 mg tabl et,extended release RxNorm: 658823 1 Tablet(s) PO daily No Start Date Active Tudorza Pressair 400 mcg/actuation breath activated RxNorm: 2257300 1 INH QAM No Start Date Active aspirin 81 mg capsul e,delayed release RxNorm: 197140 1 Capsule(s) PO daily No Start Date Active Incruse Ellipta 62.5 mcg/actuation powder for inhalation RxNorm: 0344492 1 INH daily No Start Date Active clopidogrel 75 mg ta blet RxNorm: 858617 1 Tablet(s) PO daily No Start Date Active Symbicort 80 mcg-4.5 mcg/actuation HFA aerosol inhaler RxNorm: 4991182 2 INH QHS No Start Date 07/24/2016 Inactive pantoprazole 40 mg t ablet,delayed release RxNorm: 866207 1 Tablet(s) PO daily No Start Date 09/12/2015 Inactive atorvastatin 40 mg t ablet RxNorm: 016816 1 Tablet(s) PO daily No Start Date 01/11/2016 Inactive furosemide 20 mg tablet RxNorm: 515265 1 Tablet(s) PO daily No Start Date 09/11/2016 Inactive naproxen 500 mg tablet RxNorm: 503940 Tablet(s) PO TID No Start Date 07/04/2015 Inactive Medication Administered Medication Codes Instruc tions Start Date Status Kenalog 40 mg/mL suspension for injection RxNorm: 9358500 Milliliter 10/03/2018 No longer Active Kenalog 40 mg/mL suspension for injection RxNorm: 6906537 1Milliliter 08/25/2018 N o longer Active Kenalog 40 mg/mL suspension for injection RxNorm: 9404189 1Milliliter 06/16/2018 N o longer Active Kenalog 40 mg/mL suspension for injection RxNorm: 7807369 Milliliter 07/25/2016 No longer Active Immunizations Vaccine [...] 29.1 % 08/20/2018 Cbc With Differential Ord2 Atlantic% 8.0 % 08/20/2018 Cbc With Differential Ord2 [...] 1.41 K/ul 08/20/2018 Cbc With Differential Ord2 [place] ABS# 0.4 K/ul 08/20/2018 Cbc With Differential Ord2 Eos ABS# 0.1 K/ul 08/20/2018 Cbc With Differential Ord2 Baso ABS# 0.0 K/ul 08/20/2018 Tsh Ord6 TSH (3rd IS) 2.07 uIU/mL 08/20/2018 %Hba1C Zip888 % HbA1c 10071-3 6.0 % 08/20/2018 %Hba1C Uxg690 Gluc Ave 126 mg/dL 08/20/2018 Comp Metabolic Cyn065 NA 142 mEq/L 08/20/2018 Comp Metabolic Sap865 K 4.2 mEq/L 08/20/2018 Comp Metabolic Iuq308 CL 105 mEq/L 08/20/2018 Comp Metabolic Nkc350 CO2 30.0 mEq/L 08/20/2018 Comp Metabolic Qnv159 AN ION GAP 11 08/20/2018 Comp Metabolic Lum827 GL UCOSE 132 mg/dL 08/20/2018 Comp Metabolic Vfp368 Cr eat 1.3 mg/dL 08/20/2018 Comp Metabolic Xrn622 eG FR 58 ml/min/1.73m2 08/20 Comp Metabolic Jeh044 BUN 19 mg/dL 08/20/2018 Comp Metabolic Wdr029 B/ C Ratio 14.8 Ratio 08/20/2018 Comp Metabolic Xbh481 CA LCIUM 9.2 mg/dL 08/20/2018 Comp Metabolic Een648 AL K PHOS 72 U/L 08/20/2018 Comp Metabolic Efn455 T(SGOT) 21 U/L 08/20/2018 Comp Metabolic Gdp084 AL T(SGPT) 20 U/L 08/20/2018 Comp Metabolic Hyx802 BI LI T 1.1 mg/dL 08/20/2018 Comp Metabolic Cxf136 AL BUMIN 4.3 g/dL 08/20/2018 Comp Metabolic Ozi053 TP RO 6.6 g/dL 08/20/2018 Comp Metabolic Uzt065 GL OB 2.3 g/dL 08/20/2018 Comp Metabolic Jdo600 A/ G Ratio 1.9 Ratio 08/20/2018 Comp Metabolic Xgp533 Os mo 287 mOsmo 08/20/2018 %Hba1C Itg389 % HbA1c 56206-8 5.9 % 11/20/2017 %Hba1C Uiz663 Gluc Ave 123 mg/dL 11/20/2017 B12 Gvx320 B12 1130.00 pg/ml 11/19/2017 Total Psa Ord10 [...] 86.8 fl 11/19/2017 Cbc With Differential Ord2 Atlantic% 8.6 % 11/19/2017 Cbc With Differential Ord2 [...] 1.37 K/ul 11/19/2017 Cbc With Differential Ord2 [place] ABS# 0.4 K/ul 11/19/2017 Cbc With Differential Ord2 Eos ABS# 0.0 K/ul 11/19/2017 Cbc With Differential Ord2 Baso ABS# 0.0 K/ul 11/19/2017 Comp Metabolic Yxh726 NA 142 mEq/L 11/19/2017 Comp Metabolic Lxa638 K 4.3 mEq/L 11/19/2017 Comp Metabolic Buu623 CL 104 mEq/L 11/19/2017 Comp Metabolic Ldh021 CO2 29.0 mEq/L 11/19/2017 Comp Metabolic Qml128 AN ION GAP 13 11/19/2017 Comp Metabolic Jpl608 GL UCOSE 132 mg/dL 11/19/2017 Comp Metabolic Mbb696 Cr eat 1.2 mg/dL 11/19/2017 Comp Metabolic Xqb416 eG FR 63 ml/min/1.73m2 11/19 Comp Metabolic Oco433 BUN 20 mg/dL 11/19/2017 Comp Metabolic Dee972 B/ C Ratio 16.8 Ratio 11/19/2017 Comp Metabolic Mao995 CA LCIUM 9.3 mg/dL 11/19/2017 Comp Metabolic Mco745 AL K PHOS 74 U/L 11/19/2017 Comp Metabolic Npu174 T(SGOT) 15 U/L 11/19/2017 Comp Metabolic Zyi732 AL T(SGPT) 15 U/L 11/19/2017 Comp Metabolic Bws235 BI LI T 0.9 mg/dL 11/19/2017 Comp Metabolic Hdl541 AL BUMIN 4.3 g/dL 11/19/2017 Comp Metabolic Eqz842 TP RO 6.6 g/dL 11/19/2017 Comp Metabolic Zfm301 GL OB 2.3 g/dL 11/19/2017 Comp Metabolic Zll954 A/ G Ratio 1.9 Ratio 11/19/2017 Comp Metabolic Xrz351 Os mo 288 mOsmo 11/19/2017 Tsh Ord6 [...] 30.2 pg 11/16/2016 Cbc With Differential Ord2 Atlantic% 10.2 % 11/16/2016 Cbc With Differential Ord2 [...] 1.46 K/ul 11/16/2016 Cbc With Differential Ord2 [place] ABS# 0.5 K/ul 11/16/2016 Cbc With Differential Ord2 Eos ABS# 0.1 K/ul 11/16/2016 Cbc With Differential Ord2 Baso ABS# 0.0 K/ul 11/16/2016 Comp Metabolic Fsr399 NA 141 mEq/L 11/16/2016 Comp Metabolic Jrp515 K 4.2 mEq/L 11/16/2016 Comp Metabolic Hhf757 CL 106 mEq/L 11/16/2016 Comp Metabolic Qao622 CO2 30.0 mEq/L 11/16/2016 Comp Metabolic Hdf520 AN ION GAP 9 11/16/2016 Comp Metabolic Rds170 GL UCOSE 118 mg/dL 11/16/2016 Comp Metabolic Llu072 Cr eat 1.2 mg/dL 11/16/2016 Comp Metabolic Ecz399 eG FR 61 ml/min/1.73m2 11/16 Comp Metabolic Smv489 BUN 22 mg/dL 11/16/2016 Comp Metabolic Bpb351 B/ C Ratio 17.7 Ratio 11/16/2016 Comp Metabolic Wxp362 CA LCIUM 9.2 mg/dL 11/16/2016 Comp Metabolic Bab847 AL K PHOS 91 U/L 11/16/2016 Comp Metabolic Bfr233 T(SGOT) 16 U/L 11/16/2016 Comp Metabolic Wtn634 AL T(SGPT) 16 U/L 11/16/2016 Comp Metabolic Log308 BI LI T 0.9 mg/dL 11/16/2016 Comp Metabolic Tks580 AL BUMIN 4.1 g/dL 11/16/2016 Comp Metabolic Yki602 TP RO 6.4 g/dL 11/16/2016 Comp Metabolic Art434 GL OB 2.3 g/dL 11/16/2016 Comp Metabolic Dag479 A/ G Ratio 1.8 Ratio 11/16/2016 Comp Metabolic Vzv635 Os mo 286 mOsmo 11/16/2016 Lipid Ord30 [...] 1.8 mg/dL 08/01/2015 B Type Natriuretic Peptide Gur4729 B-CONFERENCE RESERVATIONIST 13.10 pg/ml 08/01/2015 Lipid Ord30 CHOL 188 [...] Ord2 RDW 14.7 % 08/01/2015 Comp Metabolic Asr478 NA 138 mEq/L 08/01/2015 Comp Metabolic Lst467 K 4.2 mEq/L 08/01/2015 Comp Metabolic Wcz386 CL 104 mEq/L 08/01/2015 Comp Metabolic Sik410 CO2 27.0 mEq/L 08/01/2015 Comp Metabolic Czm739 AN ION GAP 11 08/01/2015 Comp Metabolic Gny251 GL UCOSE 118 mg/dL 08/01/2015 Comp Metabolic Sho379 Cr eat 1.2 mg/dL 08/01/2015 Comp Metabolic Ike435 eG FR 66 ml/min/1.73m2 08/01 Comp Metabolic Dpv860 BUN 19 mg/dL 08/01/2015 Comp Metabolic Blw421 B/ C Ratio 16.4 Ratio 08/01/2015 Comp Metabolic Gyj170 CA LCIUM 8.7 mg/dL 08/01/2015 Comp Metabolic Mfg539 AL K PHOS 85 U/L 08/01/2015 Comp Metabolic Fhh753 T(SGOT) 16 U/L 08/01/2015 Comp Metabolic Mou212 AL T(SGPT) 20 U/L 08/01/2015 Comp Metabolic Moq543 BI LI T 0.7 mg/dL 08/01/2015 Comp Metabolic Bdy062 AL BUMIN 3.9 g/dL 08/01/2015 Comp Metabolic Rcc572 TP RO 6.2 g/dL 08/01/2015 Comp Metabolic Ygb567 GL OB 2.4 g/dL 08/01/2015 Comp Metabolic Yhm414 A/ G Ratio 1.6 Ratio 08/01/2015 Comp Metabolic Wfz064 Os mo 279 mOsmo 08/01/2015 Tsh Ord6 hTSH II 1.79 uIU/mL 08/01/2015 Sed Rate Ord21 ESR 1 mm/hr 08/01/2015 Tsh Ord6 hTSH II 2.43 uIU/mL 07/07/2015 Folate Ord36 Folate 7.62 ng/mL 07/07/2015 B12 Vzz676 B12 228.00 pg/ml 07/07/2015 Review of Systems [...] Location: face 08/25/2018 on 3 on left mandaeism, 2 on right mandaeism and 1 each on dorsum of hands [...] Location: face 11/04/2017 on 3 on left mandaeism, 2 on right mandaeism and 1 each on dorsum of hands [...] accomodation 11/14/2016 None Full Exam - General 1995 Ears/Nose/Throat otoscopic exam Overall: external auditory canals clear 11/14/2016 None Full Exam - General 1995 Ears/Nose/Throat otoscopic exam Overall: tympanic membranes clear 11/14/2016 None Full Exam - General 1995 Ears/Nose/Throat lips/teeth/gingiva Overall: benign lips 11/14/2016 None Full Exam - General 1995 Ears/Nose/Throat lips/teeth/gingiva Overall: normal dentition 11/14/2016 None Full Exam - General 1994 Ears/Nose/Throat oral cavity/pharynx/larynx Overall: oral mucosa clear 11/14/2016 None Full Exam - General 1994 Ears/Nose/Throat oral cavity/pharynx/larynx Overall: oropharyngeal mucosa clear 11/14/2016 None Full Exam - General 1995 Ears/Nose/Throat oral cavity/pharynx/larynx Overall: hypopharynx benign 11/14/2016 None Full Exam - General 1995 Ears/Nose/Throat oral cavity/pharynx/larynx Overall: no masses 11/14/2016 [...] CPT-4: J3301 08/25/2018 THER/PROPH/DIAG INJ SC/IM CPT-4: 08458 06/16/2018 TRIAMCINOLONE ACET I [place] NOS CPT-4: J3301 06/16/2018 PPPS, SUBSEQ VISIT CPT- 4: G0439 11/19/2017 DESTRUCT PREMALG LESION CPT-4: 25466 11/04/2017 DESTRUCT PREMALG LES 2-14 CPT-4: 20144 11/04/2017 PPPS, SUBSEQ VISIT CPT- 4: G0439 11/16/2016 THER/PROPH/DIAG INJ SC/IM CPT-4: 98841 07/25/2016 TRIAMCINOLONE ACET I [place] NOS CPT-4: J3301 07/25/2016 Vital Signs Date Vital 10/03/2018 Blood Pressure 1: 134/74 Code: 8480-6 BMI: 40.1 Code: 36151-3 Heart Rate 1: 55 bpm Height: 5'7" SpO2: 97% Temperature: 36.7 (C ) / 98.1 (F) Weight: 256 lbs 08/25/2018 Blood Pressure 1: 128/68 Code: 8480-6 BMI: 39.8 Code: 72349-2 Heart Rate 1: 55 bpm Height: 5'7" SpO2: 97% Weight: 254 lbs 06/16/2018 Blood Pressure 1: 120/67 Code: 8480-6 BMI: 40.1 Code: 95406-6 Heart Rate 1: 83 bpm Height: 5'7" SpO2: 95% Weight: 256 lbs 04/24/2018 Blood Pressure 1: 134/76 Code: 8480-6 BMI: 39.3 Code: 88880-8 Heart Rate 1: 55 bpm Height: 5'7" SpO2: 95% Weight: 251 lbs 11/19/2017 Blood Pressure 1: 130/62 Code: 8480-6 BMI: 38.1 Code: 85388-7 Heart Rate 1: 73 bpm Height: 5'7" SpO2: 93% Waist Measure (cm): 99 cm Weight: 243 lbs 11/04/2017 Blood Pressure 1: 136/68 Code: 8480-6 BMI: 38.2 Code: 33844-0 Heart Rate 1: 61 bpm Height: 5'7" SpO2: 98% Weight: 244 lbs 10/07/2017 Blood Pressure 1: 150/70 Code: 8480-6 BMI: 39.5 Code: 62608-5 Heart Rate 1: 65 bpm Height: 5'7" SpO2: 97% Weight: 252 lbs 06/03/2017 Blood Pressure 1: 140/70 Code: 8480-6 BMI: 37.9 Code: 97920-2 Heart Rate 1: 66 bpm Height: 5'7" SpO2: 96% Weight: 242 lbs 03/19/2017 Blood Pressure 1: 136/82 Code: 8480-6 BMI: 38.8 Code: 44238-0 Heart Rate 1: 58 bpm Height: 5'7" SpO2: 94% Weight: 247 lbs 8 oz 01/21/2017 Blood Pressure 1: 136/74 Code: 8480-6 BMI: 39.1 Code: 26101-1 Heart Rate 1: 58 bpm Height: 5'7" SpO2: 97% Weight: 249 lbs 8 oz 12/04/2016 Blood Pressure 1: 136/72 Code: 8480-6 Heart Rate 1: 55 bpm Height: 5'7" SpO2: 99% Weight: 11/16/2016 Blood Pressure 1: 124/76 Code: 8480-6 BMI: 39.2 Code: 86650-1 Heart Rate 1: 62 bpm Height: 5'7" SpO2: 96% Waist Measure (cm): 104 cm Weight: 250 lbs 11/14/2016 Blood Pressure 1: 152/60 Code: 8480-6 BMI: 39.8 Code: 73302-7 Heart Rate 1: 63 bpm Height: 5'7" SpO2: 94% Weight: 254 lbs 09/17/2016 Blood Pressure 1: 138/70 Code: 8480-6 BMI: 40.3 Code: 45696-7 Heart Rate 1: 60 bpm Height: 5'7" SpO2: 96% Weight: 257 lbs 08/03/2016 Blood Pressure 1: 148/78 Code: 8480-6 BMI: 39.9 Code: 43765-8 Heart Rate 1: 50 bpm Height: 5'7" SpO2: 97% Weight: 255 lbs 07/25/2016 Blood Pressure 1: 130/68 Code: 8480-6 BMI: 39.9 Code: 74607-2 Heart Rate 1: 61 bpm Height: 5'7" SpO2: 95% Weight: 255 lbs 03/22/2016 Blood Pressure 1: 136/76 Code: 8480-6 BMI: 39.0 Code: 98149-5 Heart Rate 1: 60 bpm Height: 5'7" SpO2: 98% Weight: 249 lbs 01/12/2016 Blood Pressure 1: 146/76 Code: 8480-6 BMI: 37.8 Code: 76431-1 Heart Rate 1: 59 bpm Height: 5'7" SpO2: 98% Weight: 241 lbs 8 oz 10/13/2015 Blood Pressure 1: 136/72 Code: 8480-6 BMI: 37.6 Code: 64465-4 Heart Rate 1: 70 bpm Height: 5'7" SpO2: 99% Weight: 240 lbs 09/13/2015 Blood Pressure 1: 140/80 Code: 8480-6 BMI: 37.2 Code: 54752-0 Heart Rate 1: 64 bpm Height: 5'7" SpO2: 97% Weight: 237 lbs 8 oz 07/05/2015 Blood Pressure 1: 130/70 Code: 8480-6 Blood Pressure 1: 170/84 Code: 8480-6 BMI: 35.9 Code: 89520-9 Heart Rate 1: 67 bpm Height: 5'7" [...] Encounters Encounter Performer Loca tion Codes Date [id number]) [id number] EST. P ATIENT, LEVEL III Diagnosis: Cough[ICD10: R05] Diagnosis: Acute upper respiratory infection, unspecified[ICD10: J06.9] Amanda Espinosa MD, [facility] CPT-4: 28216 10/03/[id number]) [id number] EST. P ATIENT, LEVEL IV Diagnosis: Essential (primary) hypertension[ICD10: I10] Diagnosis: Mixed hyperlipidemia[ICD10: E78.2] Diagnosis: Other allergic rhinitis[ICD10: J30.89] [facility] CPT-4: 21836 08/25/2018 74414 EST. PATIENT, LEVEL III Diagnosis: Other pruritus[ICD10: L29.8] Diagnosis: Allergic contact dermatitis due to plants, except food[ICD10: L23.7] Alba Espinosa MD, [facility] CPT-4: 72325 06/16/2018 ([id number]) 24157 EST. P ATIENT, LEVEL IV Diagnosis: Essential (primary) hypertension[ICD10: I10] Diagnosis: Allergic dermatitis of left upper eyelid[ICD10: H01.114] Diagnosis: Allergic rhinitis due to pollen[ICD10: J30.1] Kathy Espinosa MD, [facility] CPT-4: 61105 04/24/2018 ([id number]) 54209 EST. P ATIENT, LEVEL IV Diagnosis: Essential (primary) hypertension[ICD10: I10] Diagnosis: Mixed hyperlipidemia[ICD10: E78.2] Diagnosis: Actinic keratosis[ICD10: L57.0] Kathy Espinosa MD, [facility] CPT-4: 14151 11/04/2017 ([id number]) 22412 EST. P ATIENT, LEVEL IV Diagnosis: Essential (primary) hypertension[ICD10: I10] Diagnosis: Cervicalgia[ICD10: M54.2] Diagnosis: Myalgia[ICD10: M79.1] Kathy Espinosa MD, [facility] CPT-4: 25748 10/07/2017 ([id number]) 41934 EST. P ATIENT, LEVEL IV Diagnosis: Essential (primary) hypertension[ICD10: I10] Diagnosis: Major depressive disorder, recurrent, mild[ICD10: F33.0] Diagnosis: Generalized anxiety disorder[ICD10: F41.1] Kathy Espinosa MD, [facility] CPT-4: 37771 06/03/2017 ([id number]) 37452 EST. P ATIENT, LEVEL IV Diagnosis: Essential (primary) hypertension[ICD10: I10] Diagnosis: Mixed hyperlipidemia[ICD10: E78.2] Diagnosis: Low back pain[ICD10: M54.5] Kathy Espinosa MD, [facility] CPT-4: 51232 03/19/2017 ([id number]) 45028 EST. P ATIENT, LEVEL III Diagnosis: Pain in right lower leg[ICD10: M79.661] Diagnosis: Localized edema[ICD10: R60.0] Diagnosis: Contusion of right lower leg, initial encounter[ICD10: S80.11XA] Amanda Espinosa MD, [facility] CPT-4: 65102 01/21/2017 ([id number]) 94291 EST. P ATIENT, LEVEL IV Diagnosis: Mixed hyperlipidemia[ICD10: E78.2] Diagnosis: Major depressive disorder, recurrent, moderate[ICD10: F33.1] Kathy Espinosa MD, [facility] CPT-4: 78464 12/04/2016 ([id number]) 40267 EST. P ATIENT, LEVEL IV Diagnosis: Mixed hyperlipidemia[ICD10: E78.2] Diagnosis: Major depressive disorder, recurrent, mild[ICD10: F33.0] Diagnosis: Generalized anxiety disorder[ICD10: F41.1] Diagnosis: Essential (primary) hypertension[ICD10: I10] Diagnosis: Chronic obstructive pulmonary disease with (acute) exacerbation[ICD10: J44.1] Kathy Espinosa MD, [facility] CPT-4: 46598 11/14/2016 07706 EST. PATIENT, LEVEL III Diagnosis: Acute laryngopharyngitis[ICD10: J06.0] Diagnosis: Other allergic rhinitis[ICD10: J30.89] Alba Espinosa MD, [facility] CPT-4: 94115 09/17/2016 [id number] EST. PATIENT, LEVEL III Diagnosis: Contusion of right lower leg, initial encounter[ICD10: S80.11XA] Alba Espinosa MD, [facility] CPT-4: 99981 08/03/2016 ([id number]) 55553 EST. P ATIENT, LEVEL IV Diagnosis: Essential (primary) hypertension[ICD10: I10] Diagnosis: Mixed hyperlipidemia[ICD10: E78.2] Diagnosis: Acute recurrent maxillary sinusitis[ICD10: J01.01] Diagnosis: Chronic obstructive pulmonary disease with (acute) exacerbation[ICD10: J44.1] Kathy Espinosa MD, [facility] CPT-4: 75167 07/25/2016 ([id number]) 32023 EST. P ATIENT, LEVEL IV Diagnosis: Essential (primary) hypertension[ICD10: I10] Diagnosis: Gastro-esophageal reflux disease without esophagitis[ICD10: K21.9] Diagnosis: Generalized anxiety disorder[ICD10: F41.1] Diagnosis: Major depressive disorder, recurrent, mild[ICD10: F33.0] Katyh Espinosa MD, [facility] CPT-4: 71642 03/22/2016 ([id number]) 59247 EST. P ATIENT, LEVEL IV Diagnosis: Essential (primary) hypertension[ICD10: I10] Diagnosis: Coronary angioplasty status[ICD10: Z98.61] Diagnosis: Hyperlipidemia, unspecified[ICD10: E78.5] Diagnosis: Major depressive disorder, recurrent, moderate[ICD10: F33.1] Kathy Espinosa MD, [facility] CPT-4: 23521 01/12/2016 ([id number]) 69438 EST. P ATIENT, LEVEL IV Diagnosis: Essential (primary) hypertension[ICD10: I10] Diagnosis: Gastro-esophageal reflux disease without esophagitis[ICD10: K21.9] Kathy Espinosa MD, [facility] CPT-4: 75672 10/13/2015 ([id number]) 08886 EST. P ATIENT, LEVEL IV Diagnosis: Gastro-esophageal reflux disease without esophagitis[ICD10: K21.9] Diagnosis: Essential (primary) hypertension[ICD10: I10] Diagnosis: Coronary angioplasty status[ICD10: Z98.61] Kathy Espinosa MD, [facility] CPT-4: 37810 09/13/2015 ([id number]) [facility] LEVEL 4 Diagnosis: Hyperlipidemia, unspecified[ICD10: E78.5] Diagnosis: Personal history of other diseases of the circulatory system[ICD10: Z86.79] Diagnosis: Unspecified osteoarthritis, unspecified site[ICD10: M19.90] Diagnosis: Polyneuropathy, unspecified[ICD10: G62.9] Kathy Espinosa MD, [facility] CPT-4: 71683 07/05/2015 Plan of Care Planned Activity Notes C odes Status Date Visit Plan: URI - Pt advised to inc rease fluids, vitamin C. Discussed natural and expected course of this diagnosis and need to alert me if symptoms do not follow expected course, or if any worse. RX sent to patient's pharmacy. 10/03/2018 Appointment: Amanda Romero WPtel: [address] [place], [place] [phone] (30 min) Complex 10/03/2018 Patient Education: Patient [...] in clinic 08/25/2018 Appointment: Kathy Espinosa WPtel: [address] [place] [address] (15 min) Moderate 08/25/2018 Patient Education: Patient [...] they worsen. 06/16/2018 Appointment: Alba Fajardo WPtel: [address] [place], [place] [phone] (15 min) Moderate 06/16/2018 Patient Education: Patient Medication Summary Completed 06/16/2018 Patient Education: Poison Ashley Completed 06/16/2018 Appointment: Amanda Romero WPtel: [address] [place], [place] [phone] [place] (15 min) Moderate 05/23/2018 Appointment: Kathy Espinosa WPtel: [phone] (15 min) Moderate 05/15/2018 Visit Plan: Hypertension [...] office 04/24/2018 Appointment: Kathy Espinosa WPtel: [phone] (15 min) Moderate 04/24/2018 Patient Education: Patient Medication Summary Completed 04/24/2018 Appointment: Kathy Espinosa WPtel: [phone] [place] (15 min) Moderate 02/25/2018 Appointment: Kathy Espinosa WPtel: [phone] [place] (15 min) Moderate 02/20/2018 Appointment: Kathy Espinosa WPtel: [phone] (15 min) Moderate 02/13/2018 Patient Education: Patient [...] care surrogate. 11/19/2017 Appointment: Amanda Romero WPtel: [phone] [phone] [facility] - Annual Wellness Visit 11/19/2017 Patient [...] - one lesion each hand and on mandaeism x 3 lesions and 2 lesions right mandaeism 11/04/2017 Appointment: Kathy Espinosa WPtel: [phone] [facility] (15 min) Moderate 11/04/2017 Patient Education: Patient [...] weeks. 10/07/2017 Appointment: Kathy Espinosa WPtel: [phone] [facility] (15 min) Moderate 10/07/2017 Patient Education: Patient [...] flu shots 06/03/2017 Appointment: Kathy Espinosa WPtel: [facility]5 [facility] (15 min) Moderate 06/03/2017 Patient Education: Patient Medication Summary Completed 06/03/2017 Patient Education: Obesity Completed 06/03/2017 Appointment: Kathy Espinosa WPtel: [facility]5 [facility] (15 min) Moderate 05/22/2017 Visit Plan: [...] back 03/19/2017 Appointment: Kathy Espinosa WPtel: [phone] [facility] [place] (15 min) Moderate 03/19/2017 Patient [...] doppler. 01/21/2017 Appointment: Amanda Romero WPtel: [phone] [phone] [place] (15 min) Moderate 01/21/2017 Patient Education: [...] medications. 12/04/2016 Appointment: Kathy Espinosa WPtel: [phone] [facility] [place] (15 min) Moderate 12/04/2016 Patient Education: Patient Medication Summary Completed 12/04/2016 Visit Plan: Medicare Exam - today w bra discussed the patients past history, immunizations, preventative [...] surrogate. 11/16/2016 Appointment: Alba Fajardo WPtel: [phone] [phone] [place] [address] - Annual Wellness Visit 11/16/2016 Patient Education: [...] concerns. 11/14/2016 Appointment: Kathy Espinosa WPtel: [phone] [facility] (15 min) Moderate 11/14/2016 Patient Education: Patient Medication Summary Completed 11/14/2016 Patient Education: Obesity Completed 11/14/2016 [phone] ([facility]) Moderate 10/24/2016 Visit Plan: [...] pain. 08/03/2016 Appointment: Amanda Romero WPtel: [phone] [phone] (15 min) Moderate 08/03/2016 [...] show improvement. 07/25/2016 App[facility]ment: [phone] ([facility] min) Moderate 07/25/2016 Patient Education: [...] current medications. 01/12/2016 Appointment: Kathy Espinosa WPtel: [phone] [facility] (15 min) Moderate 01/12/2016 Patient Education: Patient Medication Summary Completed 01/12/2016 Patient Education: Obesity Completed 01/12/2016 Patient Education: Hypertension Completed 01/12/2016 Appointment: Kathy Espinosa WPtel: [facility]3 [facility] (15 min) Moderate 12/01/2015 Visit Plan: [...] improving. 10/13/2015 Appointment: Kathy Espinosa WPtel: [facility]1 [facility] (15 min) Moderate 10/13/2015 Patient Education: [...] TWICE DAILY 09/13/2015 Appointment: Kathy Espinosa WPtel: [phone] [facility] (15 min) Moderate 09/13/2015 Patient Education: Patient Medication Summary Completed 09/13/2015 Patient Education: Hypertension Completed 09/13/2015 [facility]ment: [phone] ([facility] min) Moderate 08/09/2015 Visit Plan: Hyperlipidemia [...] lipitor. 07/05/2015 App[facility]ment: [phone] [facility] 07/05/2015 Patient Education: Patient [...] [facility] . [...] - one lesion each hand and on mandaeism x 3 lesions and 2 lesions right mandaeism
[2020-04-12 22:25] VITALS: BP 145/72
--- OUTSIDE RECORDS SUMMARY | 2020-04-12 22:26 | XMS REPORT | CCD ---
Author Author Joaquín Espinosa Organization Kathy Espinosa MD, [facility] Address [address] [place] [address] Phone Care Team Providers Care Electron Gun Assembler Name Role Phone PP Unavailable CCM Unavailable Summary Purpose Interface Exchange Insurance Providers Payer name Policy type / Coverage type Covered libertarian ID Effective Begin Date Effective End Date WPS Medicare Part B Medicare Part B [id number] Unknown Cigna Medicare Part B 36 [id number] Unknown Family history Grandfather Diagnosis Age At Onset lung cancer Unknown Runs in the family Diagnosis Age At Onset Cancer Unknown Grandfather Diagnosis Age At Onset Cancer Unknown Social History Social History Element Codes Description Effective Dates Marital status Unknown M arried Nitza 07/05/2015 Number of children Unknown 3 07/05/2015 Employment Unknown Retir ed 07/05/[address]: 6617520 Quit over 10 years ago 07/05/[address]: 728696 Currently drinks alcohol beer 07/05/2015 Allergies, Adverse [...] Instructions escitalopram 20 mg t ablet RxNorm: 568574 Tablet(s) TAKE ONE & ONE-HALF TABLETS BY MOUTH IN THE EVENING 10/07/2018 No Stop Date Active Keflex 500 mg capsule RxNorm: 170930 1 Capsule(s) PO TID 10/03/2018 10/09/2018 Active Kenalog 40 mg/mL jenni pension for injection RxNorm: 3076881 Milliliter(s) Inj 10/03/2018 10/03/2018 In active naproxen 500 mg tablet RxNorm: 017081 1 Tablet(s) BID as needed for pain 09/24/2018 03/22/2019 Ac tive pantoprazole 40 mg t ablet,delayed release RxNorm: 829573 1 Tablet(s) BID 09/24/2018 12/17/2019 Ac tive Kenalog 40 mg/mL jenni pension for injection RxNorm: 0419193 1 Milliliter(s) Inj 08/25/2018 08/25/2018 In active pantoprazole 40 mg t ablet,delayed release RxNorm: 393309 TAKE 1 TABLET BY MOUT H TWICE DAILY 06/24/2018 09/23/2018 Inactive betamethasone diprop ionate 0.05 % topical cream RxNorm: 765914 1 Application TOP BID as needed 06/16/2018 No Stop Date Active prednisone 20 mg tablet RxNorm: 265339 2 Tablet(s) PO daily 06/16/2018 06/20/2018 Inactive Kenalog 40 mg/mL jenni pension for injection RxNorm: 1901186 1 Milliliter(s) Inj 06/16/2018 06/16/2018 In active naproxen 500 mg tablet RxNorm: 436052 TAKE 1 TABLET BY MOUTH TWICE DAILY NE EDED FOR PAIN 05/13/2018 09/23/2018 Inactive naproxen 500 mg tablet RxNorm: 344634 TAKE ONE TABLET BY MOUTH TWICE DAILY NEEDED FOR PAIN 01/07/2018 05/12/2018 Inactive escitalopram 20 mg t ablet RxNorm: 642572 TAKE ONE & ONE-HALF T ABLETS BY MOUTH IN THE EVENING 12/16/2017 10/06/2018 Inactive pantoprazole 40 mg t ablet,delayed release RxNorm: 385064 1 Tablet(s) PO BID 11/21/2017 03/20/2018 In active Crestor 10 mg tablet RxNorm: 805161 1 Tablet(s) PO every other day 10/07/2017 06/28/2019 Ac tive naproxen 500 mg tablet RxNorm: 607868 TAKE ONE TABLET BY MOUTH TWICE DAILY NEEDED FOR PAIN 06/27/2017 12/23/2017 Inactive escitalopram 20 mg t ablet RxNorm: 210958 1 Tablet(s) PO QPM 06/03/2017 05/28/2018 Inactive pantoprazole 40 mg t ablet,delayed release RxNorm: 216696 1 Tablet(s) PO BID 03/19/2017 05/07/2017 In active naproxen 500 mg tablet RxNorm: 361298 TAKE ONE TABLET BY MOUTH TWICE DAILY NEEDED FOR PAIN 02/11/2017 06/10/2017 Inactive naproxen 500 mg tablet RxNorm: 335878 TAKE ONE TABLET BY MOUTH TWICE DAILY NEEDED FOR PAIN 12/14/2016 02/10/2017 Inactive escitalopram 20 mg t ablet RxNorm: 533015 1.5 Tablet(s) PO QPM 12/04/2016 06/02/2017 Inactive buspirone 5 mg tablet RxNorm: 126634 1 Tablet(s) PO BID 11/14/2016 12/03/2016 Inactive amoxicillin 500 mg c apsule RxNorm: 947131 1 Capsule(s) PO TID 09/17/2016 09/26/2016 Inactive prednisone 20 mg tablet RxNorm: 187160 2 Tablet(s) PO daily 09/17/2016 09/21/2016 Inactive escitalopram 20 mg t ablet RxNorm: 241704 1 Tablet(s) PO QPM 08/28/2016 12/03/2016 Inactive naproxen 500 mg tablet RxNorm: 324473 TAKE ONE TABLET BY MOUTH TWICE DAILY NEEDED FOR PAIN 08/01/2016 11/28/2016 Inactive sulfamethoxazole 800 mg-trimethoprim 160 mg tablet RxNorm: 125579 1 Tablet(s) PO BID 07/25/2016 07/31/2016 Inactive Kenalog 40 mg/mL jenni pension for injection RxNorm: 1018934 Milliliter(s) Inj 07/25/2016 07/25/2016 In active Symbicort 80 mcg-4.5 mcg/actuation HFA aerosol inhaler RxNorm: 9892766 2 INH QHS 07/25/2016 09/11/2016 In active escitalopram 20 mg t ablet RxNorm: 955325 1 Tablet(s) PO QPM 03/22/2016 08/27/2016 Inactive alprazolam 0.5 mg di sintegrating tablet RxNorm: 122626 1 Tablet(s) PO TID as needed anxiety 03/22/2016 11/13/2016 Inactive atorvastatin 20 mg t ablet RxNorm: 928617 1 Tablet(s) PO daily 01/12/2016 10/06/2017 Inactive Lexapro 10 mg tablet RxNorm: 591726 1 Tablet(s) PO QPM 01/12/2016 03/21/2016 Inactive pantoprazole 40 mg t ablet,delayed release RxNorm: 767241 1 Tablet(s) PO daily 10/13/2015 11/11/2015 In active pantoprazole 40 mg t ablet,delayed release RxNorm: 548726 1 Tablet(s) PO BID 09/13/2015 10/12/2015 In active naproxen 500 mg tablet RxNorm: 619249 Tablet(s) PO BID as needed for pain 07/05/2015 07/31/2016 In active folic acid 400 mcg t ablet RxNorm: 249265 1 Tablet(s) PO daily No Start Date Active Vitamin B12 500 mcg RxNorm: 2000 Microgram(s) PO daily No Start Date Active Toprol XL 50 mg tabl et,extended release RxNorm: 620426 1 Tablet(s) PO daily No Start Date Active Tudorza Pressair 400 mcg/actuation breath activated RxNorm: 7200745 1 INH QAM No Start Date Active aspirin 81 mg capsul e,delayed release RxNorm: 389467 1 Capsule(s) PO daily No Start Date Active Incruse Ellipta 62.5 mcg/actuation powder for inhalation RxNorm: 7327629 1 INH daily No Start Date Active clopidogrel 75 mg ta blet RxNorm: 205331 1 Tablet(s) PO daily No Start Date Active Symbicort 80 mcg-4.5 mcg/actuation HFA aerosol inhaler RxNorm: 4544279 2 INH QHS No Start Date 07/24/2016 Inactive pantoprazole 40 mg t ablet,delayed release RxNorm: 737303 1 Tablet(s) PO daily No Start Date 09/12/2015 Inactive atorvastatin 40 mg t ablet RxNorm: 104286 1 Tablet(s) PO daily No Start Date 01/11/2016 Inactive furosemide 20 mg tablet RxNorm: 826374 1 Tablet(s) PO daily No Start Date 09/11/2016 Inactive naproxen 500 mg tablet RxNorm: 849232 Tablet(s) PO TID No Start Date 07/04/2015 Inactive Medication Administered Medication Codes Instruc tions Start Date Status Kenalog 40 mg/mL suspension for injection RxNorm: 8508840 Milliliter 10/03/2018 No longer Active Kenalog 40 mg/mL suspension for injection RxNorm: 3183568 1Milliliter 08/25/2018 N o longer Active Kenalog 40 mg/mL suspension for injection RxNorm: 8550373 1Milliliter 06/16/2018 N o longer Active Kenalog 40 mg/mL suspension for injection RxNorm: 8344588 Milliliter 07/25/2016 No longer Active Immunizations Vaccine [...] 29.1 % 08/20/2018 Cbc With Differential Ord2 [place]% 8.0 % 08/20/2018 Cbc With Differential Ord2 [...] 1.41 K/ul 08/20/2018 Cbc With Differential Ord2 [place] ABS# 0.4 K/ul 08/20/2018 Cbc With Differential Ord2 Eos ABS# 0.1 K/ul 08/20/2018 Cbc With Differential Ord2 Baso ABS# 0.0 K/ul 08/20/2018 Tsh Ord6 TSH (3rd IS) 2.07 uIU/mL 08/20/2018 %Hba1C Gpu178 % HbA1c 15970-2 6.0 % 08/20/2018 %Hba1C Ppz846 Gluc Ave 126 mg/dL 08/20/2018 Comp Metabolic Kuz636 NA 142 mEq/L 08/20/2018 Comp Metabolic Dtl197 K 4.2 mEq/L 08/20/2018 Comp Metabolic Yhi548 CL 105 mEq/L 08/20/2018 Comp Metabolic Kxe113 CO2 30.0 mEq/L 08/20/2018 Comp Metabolic Mjm913 AN ION GAP 11 08/20/2018 Comp Metabolic Ndz891 GL UCOSE 132 mg/dL 08/20/2018 Comp Metabolic Dxt947 Cr eat 1.3 mg/dL 08/20/2018 Comp Metabolic Nmu380 eG FR 58 ml/min/1.73m2 08/20 Comp Metabolic Ksb099 BUN 19 mg/dL 08/20/2018 Comp Metabolic Hyy176 B/ C Ratio 14.8 Ratio 08/20/2018 Comp Metabolic Dro184 CA LCIUM 9.2 mg/dL 08/20/2018 Comp Metabolic Bcf459 AL K PHOS 72 U/L 08/20/2018 Comp Metabolic Qky194 T(SGOT) 21 U/L 08/20/2018 Comp Metabolic Bea381 AL T(SGPT) 20 U/L 08/20/2018 Comp Metabolic Kqz552 BI LI T 1.1 mg/dL 08/20/2018 Comp Metabolic Tsk225 AL BUMIN 4.3 g/dL 08/20/2018 Comp Metabolic Dgr907 TP RO 6.6 g/dL 08/20/2018 Comp Metabolic Wry791 GL OB 2.3 g/dL 08/20/2018 Comp Metabolic Flj923 A/ G Ratio 1.9 Ratio 08/20/2018 Comp Metabolic Zip831 Os mo 287 mOsmo 08/20/2018 %Hba1C Vnk966 % HbA1c 66861-1 5.9 % 11/20/2017 %Hba1C Dws726 Gluc Ave 123 mg/dL 11/20/2017 B12 Blu380 B12 1130.00 pg/ml 11/19/2017 Total Psa Ord10 [...] 86.8 fl 11/19/2017 Cbc With Differential Ord2 [place]% 8.6 % 11/19/2017 Cbc With Differential Ord2 [...] 1.37 K/ul 11/19/2017 Cbc With Differential Ord2 [place] ABS# 0.4 K/ul 11/19/2017 Cbc With Differential Ord2 Eos ABS# 0.0 K/ul 11/19/2017 Cbc With Differential Ord2 Baso ABS# 0.0 K/ul 11/19/2017 Comp Metabolic Fap704 NA 142 mEq/L 11/19/2017 Comp Metabolic Ias812 K 4.3 mEq/L 11/19/2017 Comp Metabolic Egg117 CL 104 mEq/L 11/19/2017 Comp Metabolic Rrf616 CO2 29.0 mEq/L 11/19/2017 Comp Metabolic Mrp154 AN ION GAP 13 11/19/2017 Comp Metabolic Kkm642 GL UCOSE 132 mg/dL 11/19/2017 Comp Metabolic Wuj733 Cr eat 1.2 mg/dL 11/19/2017 Comp Metabolic Xig305 eG FR 63 ml/min/1.73m2 11/19 Comp Metabolic Fel787 BUN 20 mg/dL 11/19/2017 Comp Metabolic Cgv764 B/ C Ratio 16.8 Ratio 11/19/2017 Comp Metabolic Wzc971 CA LCIUM 9.3 mg/dL 11/19/2017 Comp Metabolic Uag942 AL K PHOS 74 U/L 11/19/2017 Comp Metabolic Hzv224 T(SGOT) 15 U/L 11/19/2017 Comp Metabolic Hkz038 AL T(SGPT) 15 U/L 11/19/2017 Comp Metabolic Tbx129 BI LI T 0.9 mg/dL 11/19/2017 Comp Metabolic Tps027 AL BUMIN 4.3 g/dL 11/19/2017 Comp Metabolic Wdo609 TP RO 6.6 g/dL 11/19/2017 Comp Metabolic Isv914 GL OB 2.3 g/dL 11/19/2017 Comp Metabolic Bkf068 A/ G Ratio 1.9 Ratio 11/19/2017 Comp Metabolic Wzy821 Os mo 288 mOsmo 11/19/2017 Tsh Ord6 [...] 30.2 pg 11/16/2016 Cbc With Differential Ord2 [place]% 10.2 % 11/16/2016 Cbc With Differential Ord2 [...] 1.46 K/ul 11/16/2016 Cbc With Differential Ord2 [place] ABS# 0.5 K/ul 11/16/2016 Cbc With Differential Ord2 Eos ABS# 0.1 K/ul 11/16/2016 Cbc With Differential Ord2 Baso ABS# 0.0 K/ul 11/16/2016 Comp Metabolic Yqc995 NA 141 mEq/L 11/16/2016 Comp Metabolic Von123 K 4.2 mEq/L 11/16/2016 Comp Metabolic Gmx529 CL 106 mEq/L 11/16/2016 Comp Metabolic Oqi699 CO2 30.0 mEq/L 11/16/2016 Comp Metabolic Qjf685 AN ION GAP 9 11/16/2016 Comp Metabolic Njt217 GL UCOSE 118 mg/dL 11/16/2016 Comp Metabolic Iqh876 Cr eat 1.2 mg/dL 11/16/2016 Comp Metabolic Igf293 eG FR 61 ml/min/1.73m2 11/16 Comp Metabolic Moq112 BUN 22 mg/dL 11/16/2016 Comp Metabolic Ppn400 B/ C Ratio 17.7 Ratio 11/16/2016 Comp Metabolic Mfn045 CA LCIUM 9.2 mg/dL 11/16/2016 Comp Metabolic Uzq267 AL K PHOS 91 U/L 11/16/2016 Comp Metabolic Zso701 T(SGOT) 16 U/L 11/16/2016 Comp Metabolic Fmw964 AL T(SGPT) 16 U/L 11/16/2016 Comp Metabolic Htq708 BI LI T 0.9 mg/dL 11/16/2016 Comp Metabolic Kjv158 AL BUMIN 4.1 g/dL 11/16/2016 Comp Metabolic Hyo253 TP RO 6.4 g/dL 11/16/2016 Comp Metabolic Npe800 GL OB 2.3 g/dL 11/16/2016 Comp Metabolic Gzp008 A/ G Ratio 1.8 Ratio 11/16/2016 Comp Metabolic Fph405 Os mo 286 mOsmo 11/16/2016 Lipid Ord30 [...] 1.8 mg/dL 08/01/2015 B Type Natriuretic Peptide Vgq2546 B-BUSINESS TRAINER 13.10 pg/ml 08/01/2015 Lipid Ord30 CHOL 188 [...] Ord2 RDW 14.7 % 08/01/2015 Comp Metabolic Vub616 NA 138 mEq/L 08/01/2015 Comp Metabolic Hvb689 K 4.2 mEq/L 08/01/2015 Comp Metabolic Ldb667 CL 104 mEq/L 08/01/2015 Comp Metabolic Vev293 CO2 27.0 mEq/L 08/01/2015 Comp Metabolic Xux236 AN ION GAP 11 08/01/2015 Comp Metabolic Llg924 GL UCOSE 118 mg/dL 08/01/2015 Comp Metabolic Twu183 Cr eat 1.2 mg/dL 08/01/2015 Comp Metabolic Oul271 eG FR 66 ml/min/1.73m2 08/01 Comp Metabolic Eho454 BUN 19 mg/dL 08/01/2015 Comp Metabolic Eqe287 B/ C Ratio 16.4 Ratio 08/01/2015 Comp Metabolic Hel719 CA LCIUM 8.7 mg/dL 08/01/2015 Comp Metabolic Etb121 AL K PHOS 85 U/L 08/01/2015 Comp Metabolic Yfa142 T(SGOT) 16 U/L 08/01/2015 Comp Metabolic Ohy043 AL T(SGPT) 20 U/L 08/01/2015 Comp Metabolic Ejm325 BI LI T 0.7 mg/dL 08/01/2015 Comp Metabolic Lfc486 AL BUMIN 3.9 g/dL 08/01/2015 Comp Metabolic Not705 TP RO 6.2 g/dL 08/01/2015 Comp Metabolic Tcq416 GL OB 2.4 g/dL 08/01/2015 Comp Metabolic Xfl820 A/ G Ratio 1.6 Ratio 08/01/2015 Comp Metabolic Mqk029 Os mo 279 mOsmo 08/01/2015 Tsh Ord6 hTSH II 1.79 uIU/mL 08/01/2015 Sed Rate Ord21 ESR 1 mm/hr 08/01/2015 Tsh Ord6 hTSH II 2.43 uIU/mL 07/07/2015 Folate Ord36 Folate 7.62 ng/mL 07/07/2015 B12 Rvu019 B12 228.00 pg/ml 07/07/2015 Review of Systems [...] lips 10/03/2018 None Full Exam - General 1995 Ears/Nose/Throat lips/teeth/gingiva Overall: normal dentition 10/03/2018 None Full Exam - General 1994 Ears/Nose/Throat oral cavity/pharynx/larynx Overall: oral mucosa clear 10/03/2018 None Full Exam - General 1994 Ears/Nose/Throat oral cavity/pharynx/larynx Overall: oropharyngeal mucosa clear 10/03/2018 None Full Exam - General 1995 Ears/Nose/Throat oral cavity/pharynx/larynx Overall: hypopharynx benign 10/03/2018 [...] Location: face 08/25/2018 on 3 on left confucianist, 2 on right confucianist and 1 each on dorsum of hands [...] Location: face 11/04/2017 on 3 on left confucianist, 2 on right confucianist and 1 each on dorsum of hands [...] dentition 11/14/2016 None Full Exam - General 1995 [...] CPT-4: J3301 08/25/2018 THER/PROPH/DIAG INJ SC/IM CPT-4: 55688 06/16/2018 TRIAMCINOLONE ACET I [place] NOS CPT-4: J3301 06/16/2018 PPPS, SUBSEQ VISIT CPT- 4: G0439 11/19/2017 DESTRUCT PREMALG LESION CPT-4: 27201 11/04/2017 DESTRUCT PREMALG LES 2-14 CPT-4: 99560 11/04/2017 PPPS, SUBSEQ VISIT CPT- 4: G0439 11/16/2016 THER/PROPH/DIAG INJ SC/IM CPT-4: 09707 07/25/2016 TRIAMCINOLONE ACET I [place] NOS CPT-4: J3301 07/25/2016 Vital Signs Date Vital 10/03/2018 Blood Pressure 1: 134/74 Code: 8480-6 BMI: 40.1 Code: 53561-5 Heart Rate 1: 55 bpm Height: 5'7" SpO2: 97% Temperature: 36.7 (C ) / 98.1 (F) Weight: 256 lbs 08/25/2018 Blood Pressure 1: 128/68 Code: 8480-6 BMI: 39.8 Code: 12292-9 Heart Rate 1: 55 bpm Height: 5'7" SpO2: 97% Weight: 254 lbs 06/16/2018 Blood Pressure 1: 120/67 Code: 8480-6 BMI: 40.1 Code: 48897-8 Heart Rate 1: 83 bpm Height: 5'7" SpO2: 95% Weight: 256 lbs 04/24/2018 Blood Pressure 1: 134/76 Code: 8480-6 BMI: 39.3 Code: 20838-2 Heart Rate 1: 55 bpm Height: 5'7" SpO2: 95% Weight: 251 lbs 11/19/2017 Blood Pressure 1: 130/62 Code: 8480-6 BMI: 38.1 Code: 89143-2 Heart Rate 1: 73 bpm Height: 5'7" SpO2: 93% Waist Measure (cm): 99 cm Weight: 243 lbs 11/04/2017 Blood Pressure 1: 136/68 Code: 8480-6 BMI: 38.2 Code: 27258-5 Heart Rate 1: 61 bpm Height: 5'7" SpO2: 98% Weight: 244 lbs 10/07/2017 Blood Pressure 1: 150/70 Code: 8480-6 BMI: 39.5 Code: 41741-7 Heart Rate 1: 65 bpm Height: 5'7" SpO2: 97% Weight: 252 lbs 06/03/2017 Blood Pressure 1: 140/70 Code: 8480-6 BMI: 37.9 Code: 93275-6 Heart Rate 1: 66 bpm Height: 5'7" SpO2: 96% Weight: 242 lbs 03/19/2017 Blood Pressure 1: 136/82 Code: 8480-6 BMI: 38.8 Code: 74394-3 Heart Rate 1: 58 bpm Height: 5'7" SpO2: 94% Weight: 247 lbs 8 oz 01/21/2017 Blood Pressure 1: 136/74 Code: 8480-6 BMI: 39.1 Code: 75905-2 Heart Rate 1: 58 bpm Height: 5'7" SpO2: 97% Weight: 249 lbs 8 oz 12/04/2016 Blood Pressure 1: 136/72 Code: 8480-6 Heart Rate 1: 55 bpm Height: 5'7" SpO2: 99% Weight: 11/16/2016 Blood Pressure 1: 124/76 Code: 8480-6 BMI: 39.2 Code: 29070-3 Heart Rate 1: 62 bpm Height: 5'7" SpO2: 96% Waist Measure (cm): 104 cm Weight: 250 lbs 11/14/2016 Blood Pressure 1: 152/60 Code: 8480-6 BMI: 39.8 Code: 24465-1 Heart Rate 1: 63 bpm Height: 5'7" SpO2: 94% Weight: 254 lbs 09/17/2016 Blood Pressure 1: 138/70 Code: 8480-6 BMI: 40.3 Code: 03014-2 Heart Rate 1: 60 bpm Height: 5'7" SpO2: 96% Weight: 257 lbs 08/03/2016 Blood Pressure 1: 148/78 Code: 8480-6 BMI: 39.9 Code: 34173-4 Heart Rate 1: 50 bpm Height: 5'7" SpO2: 97% Weight: 255 lbs 07/25/2016 Blood Pressure 1: 130/68 Code: 8480-6 BMI: 39.9 Code: 58297-3 Heart Rate 1: 61 bpm Height: 5'7" SpO2: 95% Weight: 255 lbs 03/22/2016 Blood Pressure 1: 136/76 Code: 8480-6 BMI: 39.0 Code: 19014-0 Heart Rate 1: 60 bpm Height: 5'7" SpO2: 98% Weight: 249 lbs 01/12/2016 Blood Pressure 1: 146/76 Code: 8480-6 BMI: 37.8 Code: 22771-8 Heart Rate 1: 59 bpm Height: 5'7" SpO2: 98% Weight: 241 lbs 8 oz 10/13/2015 Blood Pressure 1: 136/72 Code: 8480-6 BMI: 37.6 Code: 60063-4 Heart Rate 1: 70 bpm Height: 5'7" SpO2: 99% Weight: 240 lbs 09/13/2015 Blood Pressure 1: 140/80 Code: 8480-6 BMI: 37.2 Code: 50164-9 Heart Rate 1: 64 bpm Height: 5'7" SpO2: 97% Weight: 237 lbs 8 oz 07/05/2015 Blood Pressure 1: 130/70 Code: 8480-6 Blood Pressure 1: 170/84 Code: 8480-6 BMI: 35.9 Code: 87713-8 Heart Rate 1: 67 bpm Height: 5'7" [...] Encounters Encounter Performer Loca tion Codes Date [id number]) [id number] EST. P ATIENT, LEVEL III Diagnosis: Cough[ICD10: R05] Diagnosis: Acute upper respiratory infection, unspecified[ICD10: J06.9] Amanda Espinosa MD, [facility] CPT-4: 26300 10/03/2018 ([id number] 04629 EST. P ATIENT, LEVEL IV Diagnosis: Essential (primary) hypertension[ICD10: I10] Diagnosis: Mixed hyperlipidemia[ICD10: E78.2] Diagnosis: Other allergic rhinitis[ICD10: J30.89] Kathy Espinosa MD, [facility] CPT-4: 13430 08/25/2018 [id number] EST. PATIENT, LEVEL III Diagnosis: Other pruritus[ICD10: L29.8] Diagnosis: Allergic contact dermatitis due to plants, except food[ICD10: L23.7] Alba Espinosa MD, [facility] CPT-4: 51921 06/16/2018 ([id number] 73530 EST. P ATIENT, LEVEL IV Diagnosis: Essential (primary) hypertension[ICD10: I10] Diagnosis: Allergic dermatitis of left upper eyelid[ICD10: H01.114] Diagnosis: Allergic rhinitis due to pollen[ICD10: J30.1] Kathy Espinosa MD, C CPT-4: 65124 04/24/2018 ([id number]) 75672 EST. P ATIENT, LEVEL IV Diagnosis: Essential (primary) hypertension[ICD10: I10] Diagnosis: Mixed hyperlipidemia[ICD10: E78.2] Diagnosis: Actinic keratosis[ICD10: L57.0] Kathy Espinosa MD, [facility] CPT-4: 79494 11/04/2017 ([id number]) 30277 EST. P ATIENT, LEVEL IV Diagnosis: Essential (primary) hypertension[ICD10: I10] Diagnosis: Cervicalgia[ICD10: M54.2] Diagnosis: Myalgia[ICD10: M79.1] Kathy Espinosa MD, [facility] CPT-4: 92751 10/07/2017 ([id number]) 06118 EST. P ATIENT, LEVEL IV Diagnosis: Essential (primary) hypertension[ICD10: I10] Diagnosis: Major depressive disorder, recurrent, mild[ICD10: F33.0] Diagnosis: Generalized anxiety disorder[ICD10: F41.1] Kathy Espinosa MD, [facility] CPT-4: 19516 06/03/2017 ([id number]) 36769 EST. P ATIENT, LEVEL IV Diagnosis: Essential (primary) hypertension[ICD10: I10] Diagnosis: Mixed hyperlipidemia[ICD10: E78.2] Diagnosis: Low back pain[ICD10: M54.5] Kathy Espinosa MD, [facility] CPT-4: 49760 03/19/2017 ([id number]) 99620 EST. P ATIENT, LEVEL III Diagnosis: Pain in right lower leg[ICD10: M79.661] Diagnosis: Localized edema[ICD10: R60.0] Diagnosis: Contusion of right lower leg, initial encounter[ICD10: S80.11XA] Amanda Espinosa MD, [facility] CPT-4: 17608 01/21/2017 ([id number]) 75905 EST. P ATIENT, LEVEL IV Diagnosis: Mixed hyperlipidemia[ICD10: E78.2] Diagnosis: Major depressive disorder, recurrent, moderate[ICD10: F33.1] Kathy Espinosa MD, [facility] CPT-4: 63360 12/04/2016 ([id number]) 78873 EST. P ATIENT, LEVEL IV Diagnosis: Mixed hyperlipidemia[ICD10: E78.2] Diagnosis: Major depressive disorder, recurrent, mild[ICD10: F33.0] Diagnosis: Generalized anxiety disorder[ICD10: F41.1] Diagnosis: Essential (primary) hypertension[ICD10: I10] Diagnosis: Chronic obstructive pulmonary disease with (acute) exacerbation[ICD10: J44.1] Kathy Espinosa MD, [facility] CPT-4: 46238 11/14/2016 64599 EST. PATIENT, LEVEL III Diagnosis: Acute laryngopharyngitis[ICD10: J06.0] Diagnosis: Other allergic rhinitis[ICD10: J30.89] Alba Espinosa MD, [facility] CPT-4: 66284 09/17/2016 [id number] EST. PATIENT, LEVEL III Diagnosis: Contusion of right lower leg, initial encounter[ICD10: S80.11XA] Alba Espinosa MD, [facility] CPT-4: 76700 08/03/2016 ([id number]) 49534 EST. P ATIENT, LEVEL IV Diagnosis: Essential (primary) hypertension[ICD10: I10] Diagnosis: Mixed hyperlipidemia[ICD10: E78.2] Diagnosis: Acute recurrent maxillary sinusitis[ICD10: J01.01] Diagnosis: Chronic obstructive pulmonary disease with (acute) exacerbation[ICD10: J44.1] Kathy Espinosa MD, [facility] CPT-4: 31353 07/25/2016 ([id number]) 08839 EST. P ATIENT, LEVEL IV Diagnosis: Essential (primary) hypertension[ICD10: I10] Diagnosis: Gastro-esophageal reflux disease without esophagitis[ICD10: K21.9] Diagnosis: Generalized anxiety disorder[ICD10: F41.1] Diagnosis: Major depressive disorder, recurrent, mild[ICD10: F33.0] Kathy Espinosa MD, [facility] CPT-4: 15824 03/22/2016 ([id number]) 77401 EST. P ATIENT, LEVEL IV Diagnosis: Essential (primary) hypertension[ICD10: I10] Diagnosis: Coronary angioplasty status[ICD10: Z98.61] Diagnosis: Hyperlipidemia, unspecified[ICD10: E78.5] Diagnosis: Major depressive disorder, recurrent, moderate[ICD10: F33.1] Kathy Espinosa MD, [facility] CPT-4: 90999 01/12/2016 ([id number]) 10071 EST. P ATIENT, LEVEL IV Diagnosis: Essential (primary) hypertension[ICD10: I10] Diagnosis: Gastro-esophageal reflux disease without esophagitis[ICD10: K21.9] Kathy Espinosa MD, [facility] CPT-4: 07706 10/13/2015 ([id number]) 86273 EST. P ATIENT, LEVEL IV Diagnosis: Gastro-esophageal reflux disease without esophagitis[ICD10: K21.9] Diagnosis: Essential (primary) hypertension[ICD10: I10] Diagnosis: Coronary angioplasty status[ICD10: Z98.61] Kathy Espinosa MD, C CPT-4: 21798 09/13/2015 ([id number]) OFFICE VISI , [facility] - LEVEL 4 Diagnosis: Hyperlipidemia, unspecified[ICD10: E78.5] Diagnosis: Personal history of other diseases of the circulatory system[ICD10: Z86.79] Diagnosis: Unspecified osteoarthritis, unspecified site[ICD10: M19.90] Diagnosis: Polyneuropathy, unspecified[ICD10: G62.9] Kathy Espinosa MD, C CPT-4: 62840 07/05/2015 Plan of Care Planned Activity Notes C odes Status Date Visit Plan: URI - Pt advised to inc rease fluids, vitamin C. Discussed natural and expected course of this diagnosis and need to alert me if symptoms do not follow expected course, or if any worse. RX sent to patient's pharmacy. 10/03/2018 Appointment: Amanda Romero WPtel: [address] [place], [place] [phone] (30 min) [facility] 10/03/2018 Patient Education: Patient Medication Summary Completed [...] in clinic 08/25/2018 Appointment: Kathy Espinosa WPtel: [address] [place], [place] [phone] (15 min) Moderate 08/25/2018 Patient Education: Patient [...] they worsen. 06/16/2018 Appointment: Alba Fajardo WPtel: [address] [place], [place] [id number] (15 min) Moderate 06/16/2018 Patient Education: Patient Medication Summary Completed 06/16/2018 Patient Education: Poison Ashley Completed 06/16/2018 Appointment: Amanda Romero WPtel: [address] [place], [place] [phone] [place] (15 min) Moderate 05/23/2018 Appointment: Kathy Espinosa WPtel: [facility] (15 min) Moderate 05/15/2018 Visit Plan: [...] office 04/24/2018 App[facility]ment[facility] [phone] [facility] [place] (15 min) Moderate 04/24/2018 Patient Education: Patient Medication Summary Completed 04/24/2018 Appointment: [facility] [phone] [facility] [place] (15 min) Moderate 02/25/2018 Appointment: [phone] [place] (15 min) Moderate 02/20/2018 Appointment: [phone] [place] (15 min) Moderate 02/13/2018 Patient Education: [...] care surrogate. 11/19/2017 Appointment: [id number] [facility] - Annual Wellness Visit 11/19/2017 [...] - one lesion each hand and on confucianist x 3 lesions and 2 lesions right confucianist 11/04/2017 Appointment: [phone] (15 min) Moderate 11/04/2017 Patient Education: Patient [...] weeks. 10/07/2017 Appointment: Kathy Espinosa WPtel: [phone] [facility] (15 min) Moderate 10/07/2017 Patient Education: [...] shots 06/03/2017 Appointment: Kathy Espinosa WPtel: [phone] [facility] (15 min) Moderate 06/03/2017 Patient Education: Patient Medication Summary Completed 06/03/2017 Patient Education: Obesity Completed 06/03/2017 Appointment: Kathy Espinosa WPtel: [phone] [facility] [place] (15 min) Moderate 05/22/2017 Visit Plan: [...] back 03/19/2017 Appointment: Kathy Espinosa WPtel: [phone] [facility] [place] (15 min) Moderate 03/19/2017 Patient [...] doppler. 01/21/2017 App[facility]ment: [phone] [place] (15 min) Moderate 01/21/2017 Patient Education: [...] medications. 12/04/2016 [phone] [place] (15 min) Moderate 12/04/2016 Patient [...] care surrogate. 11/16/2016 Appointment: Alba Fajardo WPtel: [facility] [facility] - Annual Wellness Visit 11/16/2016 [...] acute concerns. 11/14/2016 Appointment: Kathy Espinosa WPtel: [facility] (15 min) Moderate 11/14/2016 Patient Education: Patient Medication Summary Completed 11/14/2016 Patient Education: Obesity Completed 11/14/2016 Appointment: Kathy Espinosa WPtel: [facility] (15 min) Moderate 10/24/2016 Visit Plan: [...] pain. 08/03/2016 Appointment: Amanda Romero WPtel: [phone] [phone] (15 min) Moderate 08/03/2016 Patient Education: Patient [...] improvement. 07/25/2016 Appointment: Kathy Espinosa WPtel: [phone] [facility] (15 min) Moderate 07/25/2016 Patient Education: Patient [...] medications. 01/12/2016 Appointment: [facility]el[phone] (15 min) Moderate 01/12/2016 Patient Education: Patient Medication Summary Completed 01/12/2016 Patient Education: Obesity Completed 01/12/2016 Patient Education: Hypertension Completed 01/12/2016 Appointment: Kathy Espinosa WPtel: [address] [place], [place] [phone] (15 min) Moderate 12/01/2015 Visit Plan: [...] not improving. 10/13/2015 Appointment: Kathy Espinosa WPtel: [address] [place], [place] [phone] (15 min) Moderate 10/13/2015 Patient Education: Patient [...] TWICE DAILY 09/13/2015 Appointment: Kathy Espinosa WPtel: [address] [place], [place] [phone] (15 min) Moderate 09/13/2015 Patient Education: Patient Medication Summary Completed 09/13/2015 Patient Education: Hypertension Completed 09/13/2015 Appointment: Kathy Espinosa WPtel: [address] [place], [place] [phone] (15 min) Moderate 08/09/2015 Visit Plan: [...] lipitor. 07/05/2015 Appointment: [facility]osa [facility]Ptel[phone] [facility] [place] New Patient 07/05/2015 Patient Education: Patient Medication Summary Completed 07/05/2015 Referral: Heber Almanza Referral Appointment Requested Referral: Heber Almanza Pt's informed that referral paperwork sent. If they do not hear anything back by next Mon/Tues to let me know. Completed Instructions Comment . Hematoma, right lo wer leg, anterior [...] we will send a refer ral to [facility] for physical therapy for your neck [...] spray in the nasal steroid allergy spray. cut the metoprolol x l (toprol xl) [...] - one lesion each hand and on confucianist x 3 lesions and 2 lesions right confucianist . Medicare Exam - to day we [...] her DOPA paperwork for health care surrogate. we will check a danielle min b12 [...] - continue with ASA, plavix and lipitor. - books about weigh t loss - [...]
--- OUTSIDE RECORDS SUMMARY | 2020-04-12 22:28 | XMS REPORT | CCD ---
Author Author Joaquín Espinosa Organization Kathy Espinosa MD, [facility] Address [address] [place] [address] Phone Care Team Providers Care Mathematics Professor Name Role Phone PP Unavailable CCM Unavailable Summary Purpose Interface Exchange Insurance Providers Payer name Policy type / Coverage type Covered green party ID Effective Begin Date Effective End Date WPS Medicare Part B Medicare Part B [id number] Unknown Cigna Medicare Part B 36 [id number] Unknown Family history Grandfather Diagnosis Age At Onset lung cancer Unknown Runs in the family Diagnosis Age At Onset Cancer Unknown Grandfather Diagnosis Age At Onset Cancer Unknown Social History Social History Element Codes Description Effective Dates Marital status Unknown M arried Nitza 07/05/2015 Number of children Unknown 3 07/05/2015 Employment Unknown Retir ed 07/05/[address]: 8524948 Quit over 10 years ago 07/05/[address]: 354991 Currently drinks alcohol beer 07/05/2015 Allergies, Adverse [...] Date Stop Date Sta tus Fill Instructions Keflex 500 mg capsule RxNorm: 827343 1 Capsule(s) PO TID 10/03/2018 10/09/2018 Active Kenalog 40 mg/mL jenni pension for injection RxNorm: 8900596 Milliliter(s) Inj 10/03/2018 10/03/2018 In active naproxen 500 mg tablet RxNorm: 172170 1 Tablet(s) BID as needed for pain 09/24/2018 03/22/2019 Ac tive pantoprazole 40 mg t ablet,delayed release RxNorm: 481142 1 Tablet(s) BID 09/24/2018 12/17/2019 Ac tive Kenalog 40 mg/mL jenni pension for injection RxNorm: 9433693 1 Milliliter(s) Inj 08/25/2018 08/25/2018 In active pantoprazole 40 mg t ablet,delayed release RxNorm: 223948 TAKE 1 TABLET BY MOUT H TWICE DAILY 06/24/2018 09/23/2018 Inactive betamethasone diprop ionate 0.05 % topical cream RxNorm: 567586 1 Application TOP BID as needed 06/16/2018 No Stop Date Active prednisone 20 mg tablet RxNorm: 831071 2 Tablet(s) PO daily 06/16/2018 06/20/2018 Inactive Kenalog 40 mg/mL jenni pension for injection RxNorm: 9250814 1 Milliliter(s) Inj 06/16/2018 06/16/2018 In active naproxen 500 mg tablet RxNorm: 800735 TAKE 1 TABLET BY MOUTH TWICE DAILY NE EDED FOR PAIN 05/13/2018 09/23/2018 Inactive naproxen 500 mg tablet RxNorm: 904654 TAKE ONE TABLET BY MOUTH TWICE DAILY NEEDED FOR PAIN 01/07/2018 05/12/2018 Inactive escitalopram 20 mg t ablet RxNorm: 073248 TAKE ONE & ONE-HALF T ABLETS BY MOUTH IN THE EVENING 12/16/2017 No Stop Date Active pantoprazole 40 mg t ablet,delayed release RxNorm: 507277 1 Tablet(s) PO BID 11/21/2017 03/20/2018 In active Crestor 10 mg tablet RxNorm: 611269 1 Tablet(s) PO every other day 10/07/2017 06/28/2019 Ac tive naproxen 500 mg tablet RxNorm: 261352 TAKE ONE TABLET BY MOUTH TWICE DAILY NEEDED FOR PAIN 06/27/2017 12/23/2017 Inactive escitalopram 20 mg t ablet RxNorm: 852944 1 Tablet(s) PO QPM 06/03/2017 05/28/2018 Inactive pantoprazole 40 mg t ablet,delayed release RxNorm: 834909 1 Tablet(s) PO BID 03/19/2017 05/07/2017 In active naproxen 500 mg tablet RxNorm: 541228 TAKE ONE TABLET BY MOUTH TWICE DAILY NEEDED FOR PAIN 02/11/2017 06/10/2017 Inactive naproxen 500 mg tablet RxNorm: 026692 TAKE ONE TABLET BY MOUTH TWICE DAILY NEEDED FOR PAIN 12/14/2016 02/10/2017 Inactive escitalopram 20 mg t ablet RxNorm: 448899 1.5 Tablet(s) PO QPM 12/04/2016 06/02/2017 Inactive buspirone 5 mg tablet RxNorm: 913354 1 Tablet(s) PO BID 11/14/2016 12/03/2016 Inactive amoxicillin 500 mg c apsule RxNorm: 321505 1 Capsule(s) PO TID 09/17/2016 09/26/2016 Inactive prednisone 20 mg tablet RxNorm: 309984 2 Tablet(s) PO daily 09/17/2016 09/21/2016 Inactive escitalopram 20 mg t ablet RxNorm: 441925 1 Tablet(s) PO QPM 08/28/2016 12/03/2016 Inactive naproxen 500 mg tablet RxNorm: 713162 TAKE ONE TABLET BY MOUTH TWICE DAILY NEEDED FOR PAIN 08/01/2016 11/28/2016 Inactive sulfamethoxazole 800 mg-trimethoprim 160 mg tablet RxNorm: 793533 1 Tablet(s) PO BID 07/25/2016 07/31/2016 Inactive Kenalog 40 mg/mL jenni pension for injection RxNorm: 1870196 Milliliter(s) Inj 07/25/2016 07/25/2016 In active Symbicort 80 mcg-4.5 mcg/actuation HFA aerosol inhaler RxNorm: 8984545 2 INH QHS 07/25/2016 09/11/2016 In active escitalopram 20 mg t ablet RxNorm: 468716 1 Tablet(s) PO QPM 03/22/2016 08/27/2016 Inactive alprazolam 0.5 mg di sintegrating tablet RxNorm: 278091 1 Tablet(s) PO TID as needed anxiety 03/22/2016 11/13/2016 Inactive atorvastatin 20 mg t ablet RxNorm: 936961 1 Tablet(s) PO daily 01/12/2016 10/06/2017 Inactive Lexapro 10 mg tablet RxNorm: 332861 1 Tablet(s) PO QPM 01/12/2016 03/21/2016 Inactive pantoprazole 40 mg t ablet,delayed release RxNorm: 345315 1 Tablet(s) PO daily 10/13/2015 11/11/2015 In active pantoprazole 40 mg t ablet,delayed release RxNorm: 525318 1 Tablet(s) PO BID 09/13/2015 10/12/2015 In active naproxen 500 mg tablet RxNorm: 334754 Tablet(s) PO BID as needed for pain 07/05/2015 07/31/2016 In active folic acid 400 mcg t ablet RxNorm: 800775 1 Tablet(s) PO daily No Start Date Active Vitamin B12 500 mcg RxNorm: 2000 Microgram(s) PO daily No Start Date Active Toprol XL 50 mg tabl et,extended release RxNorm: 834946 1 Tablet(s) PO daily No Start Date Active Tudorza Pressair 400 mcg/actuation breath activated RxNorm: 7442458 1 INH QAM No Start Date Active aspirin 81 mg capsul e,delayed release RxNorm: 849140 1 Capsule(s) PO daily No Start Date Active Incruse Ellipta 62.5 mcg/actuation powder for inhalation RxNorm: 1695815 1 INH daily No Start Date Active clopidogrel 75 mg ta blet RxNorm: 744622 1 Tablet(s) PO daily No Start Date Active Symbicort 80 mcg-4.5 mcg/actuation HFA aerosol inhaler RxNorm: 9804707 2 INH QHS No Start Date 07/24/2016 Inactive pantoprazole 40 mg t ablet,delayed release RxNorm: 196737 1 Tablet(s) PO daily No Start Date 09/12/2015 Inactive atorvastatin 40 mg t ablet RxNorm: 703862 1 Tablet(s) PO daily No Start Date 01/11/2016 Inactive furosemide 20 mg tablet RxNorm: 289270 1 Tablet(s) PO daily No Start Date 09/11/2016 Inactive naproxen 500 mg tablet RxNorm: 750587 Tablet(s) PO TID No Start Date 07/04/2015 Inactive Medication Administered Medication Codes Instruc tions Start Date Status Kenalog 40 mg/mL suspension for injection RxNorm: 0809834 Milliliter 10/03/2018 Ac tive Kenalog 40 mg/mL suspension for injection RxNorm: 8860642 1Milliliter 08/25/2018 N o longer Active Kenalog 40 mg/mL suspension for injection RxNorm: 5764581 1Milliliter 06/16/2018 N o longer Active Kenalog 40 mg/mL suspension for injection RxNorm: 6639832 Milliliter 07/25/2016 No longer Active Immunizations Vaccine [...] 30.1 pg 08/20/2018 Cbc With Differential Ord2 Hudspeth% 8.0 % 08/20/2018 Cbc With Differential Ord2 [...] 1.41 K/ul 08/20/2018 Cbc With Differential Ord2 Hud[place]eth ABS# 0.4 K/ul 08/20/2018 Cbc With Differential Ord2 Eos ABS# 0.1 K/ul 08/20/2018 Cbc With Differential Ord2 Baso ABS# 0.0 K/ul 08/20/2018 Tsh Ord6 TSH (3rd IS) 2.07 uIU/mL 08/20/2018 %Hba1C Muu893 % HbA1c 73435-1 6.0 % 08/20/2018 %Hba1C Ofe691 Gluc Ave 126 mg/dL 08/20/2018 Comp Metabolic Jwu709 NA 142 mEq/L 08/20/2018 Comp Metabolic Ntr257 K 4.2 mEq/L 08/20/2018 Comp Metabolic Sdi416 CL 105 mEq/L 08/20/2018 Comp Metabolic Zlu944 CO2 30.0 mEq/L 08/20/2018 Comp Metabolic Xhd385 AN ION GAP 11 08/20/2018 Comp Metabolic Ias574 GL UCOSE 132 mg/dL 08/20/2018 Comp Metabolic Uxg373 Cr eat 1.3 mg/dL 08/20/2018 Comp Metabolic Rxd648 eG FR 58 ml/min/1.73m2 08/20 Comp Metabolic Zhx644 BUN 19 mg/dL 08/20/2018 Comp Metabolic Gxy074 B/ C Ratio 14.8 Ratio 08/20/2018 Comp Metabolic Wux196 CA LCIUM 9.2 mg/dL 08/20/2018 Comp Metabolic Obd909 AL K PHOS 72 U/L 08/20/2018 Comp Metabolic Trj320 T(SGOT) 21 U/L 08/20/2018 Comp Metabolic Nyb870 AL T(SGPT) 20 U/L 08/20/2018 Comp Metabolic Gbo910 BI LI T 1.1 mg/dL 08/20/2018 Comp Metabolic Hxh865 AL BUMIN 4.3 g/dL 08/20/2018 Comp Metabolic Rlg149 TP RO 6.6 g/dL 08/20/2018 Comp Metabolic Gcu457 GL OB 2.3 g/dL 08/20/2018 Comp Metabolic Ucp361 A/ G Ratio 1.9 Ratio 08/20/2018 Comp Metabolic Smw001 Os mo 287 mOsmo 08/20/2018 %Hba1C Dtr027 % HbA1c 47277-5 5.9 % 11/20/2017 %Hba1C Xcs849 Gluc Ave 123 mg/dL 11/20/2017 B12 Vnq294 B12 1130.00 pg/ml 11/19/2017 Total Psa Ord10 [...] 29.2 pg 11/19/2017 Cbc With Differential Ord2 Hudspeth% 8.6 % 11/19/2017 Cbc With Differential Ord2 [...] 1.37 K/ul 11/19/2017 Cbc With Differential Ord2 [place]ud[place] ABS# 0.4 K/ul 11/19/2017 Cbc With Differential Ord2 Eos ABS# 0.0 K/ul 11/19/2017 Cbc With Differential Ord2 Baso ABS# 0.0 K/ul 11/19/2017 Comp Metabolic Srf804 NA 142 mEq/L 11/19/2017 Comp Metabolic Jca947 K 4.3 mEq/L 11/19/2017 Comp Metabolic Plh285 CL 104 mEq/L 11/19/2017 Comp Metabolic Lul870 CO2 29.0 mEq/L 11/19/2017 Comp Metabolic Oqz206 AN ION GAP 13 11/19/2017 Comp Metabolic Vof638 GL UCOSE 132 mg/dL 11/19/2017 Comp Metabolic Lej713 Cr eat 1.2 mg/dL 11/19/2017 Comp Metabolic Fwf454 eG FR 63 ml/min/1.73m2 11/19 Comp Metabolic Bvg342 BUN 20 mg/dL 11/19/2017 Comp Metabolic Wom863 B/ C Ratio 16.8 Ratio 11/19/2017 Comp Metabolic Twt699 CA LCIUM 9.3 mg/dL 11/19/2017 Comp Metabolic Vrx435 AL K PHOS 74 U/L 11/19/2017 Comp Metabolic Zhe603 T(SGOT) 15 U/L 11/19/2017 Comp Metabolic Oxu956 AL T(SGPT) 15 U/L 11/19/2017 Comp Metabolic Qch051 BI LI T 0.9 mg/dL 11/19/2017 Comp Metabolic Znw273 AL BUMIN 4.3 g/dL 11/19/2017 Comp Metabolic Lax595 TP RO 6.6 g/dL 11/19/2017 Comp Metabolic Fis477 GL OB 2.3 g/dL 11/19/2017 Comp Metabolic Qoy582 A/ G Ratio 1.9 Ratio 11/19/2017 Comp Metabolic Knq185 Os mo 288 mOsmo 11/19/2017 Tsh Ord6 [...] 30.2 pg 11/16/2016 Cbc With Differential Ord2 Hudspeth% 10.2 % 11/16/2016 Cbc With Differential Ord2 [...] 1.46 K/ul 11/16/2016 Cbc With Differential Ord2 [place] ABS# 0.5 K/ul 11/16/2016 Cbc With Differential Ord2 Eos ABS# 0.1 K/ul 11/16/2016 Cbc With Differential Ord2 Baso ABS# 0.0 K/ul 11/16/2016 Comp Metabolic Dep958 NA 141 mEq/L 11/16/2016 Comp Metabolic Zxz142 K 4.2 mEq/L 11/16/2016 Comp Metabolic Slw058 CL 106 mEq/L 11/16/2016 Comp Metabolic Pas581 CO2 30.0 mEq/L 11/16/2016 Comp Metabolic Bzc070 AN ION GAP 9 11/16/2016 Comp Metabolic Phy723 GL UCOSE 118 mg/dL 11/16/2016 Comp Metabolic Tao287 Cr eat 1.2 mg/dL 11/16/2016 Comp Metabolic Kqx190 eG FR 61 ml/min/1.73m2 11/16 Comp Metabolic Ehs874 BUN 22 mg/dL 11/16/2016 Comp Metabolic Nkx543 B/ C Ratio 17.7 Ratio 11/16/2016 Comp Metabolic Qth041 CA LCIUM 9.2 mg/dL 11/16/2016 Comp Metabolic Gce550 AL K PHOS 91 U/L 11/16/2016 Comp Metabolic Sjz741 T(SGOT) 16 U/L 11/16/2016 Comp Metabolic Voc796 AL T(SGPT) 16 U/L 11/16/2016 Comp Metabolic Jwr737 BI LI T 0.9 mg/dL 11/16/2016 Comp Metabolic Nvd208 AL BUMIN 4.1 g/dL 11/16/2016 Comp Metabolic Gbb100 TP RO 6.4 g/dL 11/16/2016 Comp Metabolic Pgw790 GL OB 2.3 g/dL 11/16/2016 Comp Metabolic Pnf955 A/ G Ratio 1.8 Ratio 11/16/2016 Comp Metabolic Nfb016 Os mo 286 mOsmo 11/16/2016 Lipid Ord30 [...] 1.8 mg/dL 08/01/2015 B Type Natriuretic Peptide Zpn5221 B-HYDROGRAPHER 13.10 pg/ml 08/01/2015 Lipid Ord30 CHOL 188 [...] Ord2 RDW 14.7 % 08/01/2015 Comp Metabolic Tqe845 NA 138 mEq/L 08/01/2015 Comp Metabolic Prh650 K 4.2 mEq/L 08/01/2015 Comp Metabolic Wrc899 CL 104 mEq/L 08/01/2015 Comp Metabolic Ury349 CO2 27.0 mEq/L 08/01/2015 Comp Metabolic Yze562 AN ION GAP 11 08/01/2015 Comp Metabolic Xpe677 GL UCOSE 118 mg/dL 08/01/2015 Comp Metabolic Poe500 Cr eat 1.2 mg/dL 08/01/2015 Comp Metabolic Sdb430 eG FR 66 ml/min/1.73m2 08/01 Comp Metabolic Den618 BUN 19 mg/dL 08/01/2015 Comp Metabolic Kjx023 B/ C Ratio 16.4 Ratio 08/01/2015 Comp Metabolic Qyy857 CA LCIUM 8.7 mg/dL 08/01/2015 Comp Metabolic Kzw864 AL K PHOS 85 U/L 08/01/2015 Comp Metabolic Qxa938 T(SGOT) 16 U/L 08/01/2015 Comp Metabolic Ywf413 AL T(SGPT) 20 U/L 08/01/2015 Comp Metabolic Lcz180 BI LI T 0.7 mg/dL 08/01/2015 Comp Metabolic Fsu310 AL BUMIN 3.9 g/dL 08/01/2015 Comp Metabolic Tpn253 TP RO 6.2 g/dL 08/01/2015 Comp Metabolic Wpa756 GL OB 2.4 g/dL 08/01/2015 Comp Metabolic Azz855 A/ G Ratio 1.6 Ratio 08/01/2015 Comp Metabolic Zan610 Os mo 279 mOsmo 08/01/2015 Tsh Ord6 hTSH II 1.79 uIU/mL 08/01/2015 Sed Rate Ord21 ESR 1 mm/hr 08/01/2015 Tsh Ord6 hTSH II 2.43 uIU/mL 07/07/2015 Folate Ord36 Folate 7.62 ng/mL 07/07/2015 B12 Vmg161 B12 228.00 pg/ml 07/07/2015 Review of Systems [...] pain 11/14/2016 Neurologic No syncope Psychiatric anxiety 0304/2017 Psychiatric depression 0 11/14/2016 Constitutional recent illness [...] Location: face 08/25/2018 on 3 on left worship, 2 on right worship and 1 each on dorsum of hands [...] Location: face 11/04/2017 on 3 on left worship, 2 on right worship and 1 each on dorsum of hands [...] CPT-4: J3301 08/25/2018 THER/PROPH/DIAG INJ SC/IM CPT-4: 17679 06/16/2018 TRIAMCINOLONE ACET I [place] NOS CPT-4: J3301 06/16/2018 PPPS, SUBSEQ VISIT CPT- 4: G0439 11/19/2017 DESTRUCT PREMALG LESION CPT-4: 33052 11/04/2017 DESTRUCT PREMALG LES 2-14 CPT-4: 93688 11/04/2017 PPPS, SUBSEQ VISIT CPT- 4: G0439 11/16/2016 THER/PROPH/DIAG INJ SC/IM CPT-4: 62300 07/25/2016 TRIAMCINOLONE ACET I [place] NOS CPT-4: J3301 07/25/2016 Vital Signs Date Vital 10/03/2018 Blood Pressure 1: 134/74 Code: 8480-6 BMI: 40.1 Code: 55286-0 Heart Rate 1: 55 bpm Height: 5'7" SpO2: 97% Temperature: 36.7 (C ) / 98.1 (F) Weight: 256 lbs 08/25/2018 Blood Pressure 1: 128/68 Code: 8480-6 BMI: 39.8 Code: 26799-6 Heart Rate 1: 55 bpm Height: 5'7" SpO2: 97% Weight: 254 lbs 06/16/2018 Blood Pressure 1: 120/67 Code: 8480-6 BMI: 40.1 Code: 59341-6 Heart Rate 1: 83 bpm Height: 5'7" SpO2: 95% Weight: 256 lbs 04/24/2018 Blood Pressure 1: 134/76 Code: 8480-6 BMI: 39.3 Code: 10836-6 Heart Rate 1: 55 bpm Height: 5'7" SpO2: 95% Weight: 251 lbs 11/19/2017 Blood Pressure 1: 130/62 Code: 8480-6 BMI: 38.1 Code: 53619-3 Heart Rate 1: 73 bpm Height: 5'7" SpO2: 93% Waist Measure (cm): 99 cm Weight: 243 lbs 11/04/2017 Blood Pressure 1: 136/68 Code: 8480-6 BMI: 38.2 Code: 10456-6 Heart Rate 1: 61 bpm Height: 5'7" SpO2: 98% Weight: 244 lbs 10/07/2017 Blood Pressure 1: 150/70 Code: 8480-6 BMI: 39.5 Code: 84152-9 Heart Rate 1: 65 bpm Height: 5'7" SpO2: 97% Weight: 252 lbs 06/03/2017 Blood Pressure 1: 140/70 Code: 8480-6 BMI: 37.9 Code: 13926-0 Heart Rate 1: 66 bpm Height: 5'7" SpO2: 96% Weight: 242 lbs 03/19/2017 Blood Pressure 1: 136/82 Code: 8480-6 BMI: 38.8 Code: 93783-7 Heart Rate 1: 58 bpm Height: 5'7" SpO2: 94% Weight: 247 lbs 8 oz 01/21/2017 Blood Pressure 1: 136/74 Code: 8480-6 BMI: 39.1 Code: 92691-3 Heart Rate 1: 58 bpm Height: 5'7" SpO2: 97% Weight: 249 lbs 8 oz 12/04/2016 Blood Pressure 1: 136/72 Code: 8480-6 Heart Rate 1: 55 bpm Height: 5'7" SpO2: 99% Weight: 11/16/2016 Blood Pressure 1: 124/76 Code: 8480-6 BMI: 39.2 Code: 00204-5 Heart Rate 1: 62 bpm Height: 5'7" SpO2: 96% Waist Measure (cm): 104 cm Weight: 250 lbs 11/14/2016 Blood Pressure 1: 152/60 Code: 8480-6 BMI: 39.8 Code: 46778-7 Heart Rate 1: 63 bpm Height: 5'7" SpO2: 94% Weight: 254 lbs 09/17/2016 Blood Pressure 1: 138/70 Code: 8480-6 BMI: 40.3 Code: 25149-1 Heart Rate 1: 60 bpm Height: 5'7" SpO2: 96% Weight: 257 lbs 08/03/2016 Blood Pressure 1: 148/78 Code: 8480-6 BMI: 39.9 Code: 85191-1 Heart Rate 1: 50 bpm Height: 5'7" SpO2: 97% Weight: 255 lbs 07/25/2016 Blood Pressure 1: 130/68 Code: 8480-6 BMI: 39.9 Code: 85352-5 Heart Rate 1: 61 bpm Height: 5'7" SpO2: 95% Weight: 255 lbs 03/22/2016 Blood Pressure 1: 136/76 Code: 8480-6 BMI: 39.0 Code: 35807-7 Heart Rate 1: 60 bpm Height: 5'7" SpO2: 98% Weight: 249 lbs 01/12/2016 Blood Pressure 1: 146/76 Code: 8480-6 BMI: 37.8 Code: 53398-9 Heart Rate 1: 59 bpm Height: 5'7" SpO2: 98% Weight: 241 lbs 8 oz 10/13/2015 Blood Pressure 1: 136/72 Code: 8480-6 BMI: 37.6 Code: 92460-6 Heart Rate 1: 70 bpm Height: 5'7" SpO2: 99% Weight: 240 lbs 09/13/2015 Blood Pressure 1: 140/80 Code: 8480-6 BMI: 37.2 Code: 60668-8 Heart Rate 1: 64 bpm Height: 5'7" SpO2: 97% Weight: 237 lbs 8 oz 07/05/2015 Blood Pressure 1: 170/84 Code: 8480-6 Blood Pressure 1: 130/70 Code: 8480-6 BMI: 35.9 Code: 69281-7 Heart Rate 1: 67 bpm Height: 5'7" [...] Pressure (self reported) borderline (120/80 - 139/89) 03/13/2 018 None Annual Medicare Wellness Exam [place] [...] Onset of Symptom months ago 07/25/2016 since April/May chest pain/pressure Pertinent Findings cough 07/25/2016 None [...] Encounters Encounter Performer Loca tion Codes Date ([id number]) 20524 EST. P ATIENT, LEVEL III Diagnosis: Cough[ICD10: R05] Diagnosis: Acute upper respiratory infection, unspecified[ICD10: J06.9] Amanda sEpinosa MD, [facility] CPT-4: 33790 10/03/2018 ([id number]) 40764 EST. P ATIENT, LEVEL IV Diagnosis: Essential (primary) hypertension[ICD10: I10] Diagnosis: Mixed hyperlipidemia[ICD10: E78.2] Diagnosis: Other allergic rhinitis[ICD10: J30.89] Kathy Espinosa MD, [facility] CPT-4: 43062 08/25/2018 [id number] EST. PATIENT, LEVEL III Diagnosis: Other pruritus[ICD10: L29.8] Diagnosis: Allergic contact dermatitis due to plants, except food[ICD10: L23.7] Alba Espinosa MD, [facility] CPT-4: 74527 06/16/[id number]) 42843 EST. P ATIENT, LEVEL IV Diagnosis: Essential (primary) hypertension[ICD10: I10] Diagnosis: Allergic dermatitis of left upper eyelid[ICD10: H01.114] Diagnosis: Allergic rhinitis due to pollen[ICD10: J30.1] Kathy Espinosa MD, [facility] CPT-4: 27429 04/24/2018 ([id number]) 01353 EST. P ATIENT, LEVEL IV Diagnosis: Essential (primary) hypertension[ICD10: I10] Diagnosis: Mixed hyperlipidemia[ICD10: E78.2] Diagnosis: Actinic keratosis[ICD10: L57.0] Kathy Espinosa MD, [facility] CPT-4: 37868 11/04/2017 ([id number]) 32702 EST. P ATIENT, LEVEL IV Diagnosis: Essential (primary) hypertension[ICD10: I10] Diagnosis: Cervicalgia[ICD10: M54.2] Diagnosis: Myalgia[ICD10: M79.1] Kathy Espinosa MD, [facility] CPT-4: 72076 10/07/2017 ([id number]) 86469 EST. P ATIENT, LEVEL IV Diagnosis: Essential (primary) hypertension[ICD10: I10] Diagnosis: Major depressive disorder, recurrent, mild[ICD10: F33.0] Diagnosis: Generalized anxiety disorder[ICD10: F41.1] Kathy Espinosa MD, [facility] CPT-4: 52690 06/03/2017 ([id number]) 47942 EST. P ATIENT, LEVEL IV Diagnosis: Essential (primary) hypertension[ICD10: I10] Diagnosis: Mixed hyperlipidemia[ICD10: E78.2] Diagnosis: Low back pain[ICD10: M54.5] Kathy Espinosa MD, [facility] CPT-4: 22278 03/19/2017 ([id number]) 37505 EST. P ATIENT, LEVEL III Diagnosis: Pain in right lower leg[ICD10: M79.661] Diagnosis: Localized edema[ICD10: R60.0] Diagnosis: Contusion of right lower leg, initial encounter[ICD10: S80.11XA] Amanda Espinosa MD, [facility] CPT-4: 19486 01/21/2017 ([id number]) 56911 EST. P ATIENT, LEVEL IV Diagnosis: Mixed hyperlipidemia[ICD10: E78.2] Diagnosis: Major depressive disorder, recurrent, moderate[ICD10: F33.1] Kathy Espinosa MD, [facility] CPT-4: 57414 12/04/2016 ([id number]) 10331 EST. P ATIENT, LEVEL IV Diagnosis: Mixed hyperlipidemia[ICD10: E78.2] Diagnosis: Major depressive disorder, recurrent, mild[ICD10: F33.0] Diagnosis: Generalized anxiety disorder[ICD10: F41.1] Diagnosis: Essential (primary) hypertension[ICD10: I10] Diagnosis: Chronic obstructive pulmonary disease with (acute) exacerbation[ICD10: J44.1] Kathy Espinosa MD, [facility] CPT-4: 25530 11/14/2016 70442 EST. PATIENT, LEVEL III Diagnosis: Acute laryngopharyngitis[ICD10: J06.0] Diagnosis: Other allergic rhinitis[ICD10: J30.89] Alba Espinosa MD, [facility] CPT-4: 83545 09/17/2016 53979 EST. PATIENT, LEVEL III Diagnosis: Contusion of right lower leg, initial encounter[ICD10: S80.11XA] Alba Espinosa MD, [facility] CPT-4: 37481 08/03/2016 ([id number]) 64970 EST. P ATIENT, LEVEL IV Diagnosis: Essential (primary) hypertension[ICD10: I10] Diagnosis: Mixed hyperlipidemia[ICD10: E78.2] Diagnosis: Acute recurrent maxillary sinusitis[ICD10: J01.01] Diagnosis: Chronic obstructive pulmonary disease with (acute) exacerbation[ICD10: J44.1] Kathy Espinosa MD, [facility] CPT-4: 97865 07/25/2016 ([id number]) 51931 EST. [facility]: Essential (primary) hypertension[ICD10: I10] Diagnosis: Gastro-esophageal reflux disease without esophagitis[ICD10: K21.9] Diagnosis: Generalized anxiety disorder[ICD10: F41.1] Diagnosis: Major depressive disorder, recurrent, mild[ICD10: F33.0] Kathy Espinosa MD, [facility] CPT-4: 20043 03/22/2016 ([id number]) 55137 EST. P ATIENT, LEVEL IV Diagnosis: Essential (primary) hypertension[ICD10: I10] Diagnosis: Coronary angioplasty status[ICD10: Z98.61] Diagnosis: Hyperlipidemia, unspecified[ICD10: E78.5] Diagnosis: Major depressive disorder, recurrent, moderate[ICD10: F33.1] Kathy Espinosa MD, [facility] CPT-4: 61672 01/12/2016 ([id number]) 02766 EST. P ATIENT, LEVEL IV Diagnosis: Essential (primary) hypertension[ICD10: I10] Diagnosis: Gastro-esophageal reflux disease without esophagitis[ICD10: K21.9] Kathy Espinosa MD, [facility] CPT-4: 64583 10/13/2015 ([id number]) 07550 EST. P ATIENT, LEVEL IV Diagnosis: Gastro-esophageal reflux disease without esophagitis[ICD10: K21.9] Diagnosis: Essential (primary) hypertension[ICD10: I10] Diagnosis: Coronary angioplasty status[ICD10: Z98.61] Kathy Espinosa MD, C CPT-4: 76954 09/13/2015 ([id number]) OFFICE VISI , [facility] - LEVEL 4 Diagnosis: Hyperlipidemia, unspecified[ICD10: E78.5] Diagnosis: Personal history of other diseases of the circulatory system[ICD10: Z86.79] Diagnosis: Unspecified osteoarthritis, unspecified site[ICD10: M19.90] Diagnosis: Polyneuropathy, unspecified[ICD10: G62.9] Kathy Espinosa MD, C CPT-4: 92995 07/05/2015 Plan of Care Planned Activity Notes C odes Status Date Visit Plan: URI - Pt advised to inc rease fluids, vitamin C. Discussed natural and expected course of this diagnosis and need to alert me if symptoms do not follow expected course, or if any worse. RX sent to patient's pharmacy. 10/03/2018 Patient Education: Patient Medication Summary Completed 10/03/2018 Visit Plan: Hypertension - well con emilied [...] in clinic 08/25/2018 Appointment: Kathy Espinosa WPtel: [facility] (15 min) Moderate 08/25/2018 Patient Education: Patient [...] they worsen. 06/16/2018 Appointment: Alba Fajardo WPtel: [facility] (15 min) Moderate 06/16/2018 Patient Education: Patient Medication Summary Completed 06/16/2018 Patient Education: Poison Ashley Completed 06/16/2018 Appointment: Amanda Romero WPtel: [phone] [place] (15 min) Moderate 05/23/2018 Appointment: Kathy Espinosa WPtel: [facility] ([facility] min) Moderate 05/15/2018 Visit Plan: Hypertension [...] 04/24/2018 Appointment: [facility] [phone] [facility] [place] (15 min) Moderate 04/24/2018 Patient Education: Patient Medication Summary Completed 04/24/2018 Appointment: [facility] [phone] [facility] [place] (15 min) Moderate 02/25/2018 Appointment: [facility] [phone] [facility] [place] (15 min) Moderate 02/20/2018 Appointment: [facility] [phone] [facility] [place] (15 min) Moderate 02/13/2018 Patient Education: [...] surrogate. 11/19/2017 [id number] [facility] - Annual Wellness Visit 11/19/2017 Patient Education: [...] - one lesion each hand and on worship x 3 lesions and 2 lesions right worship 11/04/2017 Appointment: [phone] [facility] (15 min) Moderate 11/04/2017 Patient Education: Patient [...] weeks. 10/07/2017 Appointment: [phone] (15 min) Moderate 10/07/2017 Patient Education: Patient [...] flu shots 06/03/2017 Appointment: Kathy Espinosa WPtel: [phone] [facility] [place] (15 min) Moderate 06/03/2017 Patient Education: Patient Medication Summary Completed 06/03/2017 Patient Education: Obesity Completed 06/03/2017 Appointment: Kathy Espinosa WPtel: [phone] [facility] [place] (15 min) Moderate 05/22/2017 Visit Plan: [...] of back 03/19/2017 Appointment: Kathy Espinosa [facility]el[phone] [facility] [place] (15 min) Moderate 03/19/2017 Patient Education: [...] doppler. 01/21/2017 Appointment: [id number] (15 min) Moderate 01/21/2017 Patient Education: Patient [...] medications. 12/04/2016 Appointment: Kathy Espinosa [facility]el[phone] (15 min) Moderate 12/04/2016 Patient Education: Patient [...] surrogate. 11/16/2016 Appointment: Alba Fajardo WPtel: [phone] [facility] [facility] - Annual Wellness Visit 11/16/2016 Patient Education: [...] acute concerns. 11/14/2016 Appointment: Kathy Espinosa WPtel: [facility] (15 min) Moderate 11/14/2016 Patient Education: Patient Medication Summary Completed 11/14/2016 Patient Education: Obesity Completed 11/14/2016 Appointment: Kathy Espinosa WPtel: [facility] (15 min) Moderate 10/24/2016 Visit Plan: [...] pain. 08/03/2016 Appointment: Amanda Romero WPtel: [phone] [phone] (15 min) Moderate 08/03/2016 Patient Education: [...] show improvement. 07/25/2016 Appointment: Kathy Espinosa WPtel: [phone] [facility] (15 min) Moderate 07/25/2016 Patient Education: Patient [...] current medications. 01/12/2016 Appointment: Kathy Espinosa WPtel: [address] [place], [place] [address] (15 min) Moderate 01/12/2016 Patient Education: Patient Medication Summary Completed 01/12/2016 Patient Education: Obesity Completed 01/12/2016 Patient Education: Hypertension Completed 01/12/2016 Appointment: Kathy Espinosa WPtel: [address] [place] [address] (15 min) Moderate 12/01/2015 Visit Plan: Hypertension [...] not improving. 10/13/2015 Appointment: Kathy Espinosa WPtel: [facility]5 [facility] (15 min) Moderate 10/13/2015 [...] TWICE DAILY 09/13/2015 Appointment: Kathy Espinosa WPtel: [address] [place], [place] [id number] (15 min) Moderate 09/13/2015 Patient Education: Patient Medication Summary Completed 09/13/2015 Patient Education: Hypertension Completed 09/13/2015 Appointment: Kathy Espinosa WPtel: [address] [place], [place] [id number] (15 min) Moderate 08/09/2015 Visit Plan: Hyperlipidemia [...] with ASA, plavix and lipitor. 07/05/2015 Appointment: FranciscaKathy WPtel: [facility] [place] New Patient 07/05/2015 Patient Education: Patient [...] we will send a refer ral to [facility] for physical therapy for your neck . [...] DOPA paperwork for health care surrogate. . Hematoma, right lo wer leg, anterior [...] - one lesion each hand and on worship x 3 lesions and 2 lesions right worship . Hypertension - wel l controlled - [...] No change in current medications. we will check a danielle min b12 [...] - continue with ASA, plavix and lipitor. milagros 180mg daily x 2 weeks zatador [...]
[2020-04-12] MEDS ORDERED: KETOROLAC 60 MG/2 ML VIAL IM ONE (22:30)
--- OUTSIDE RECORDS SUMMARY | 2020-04-12 22:30 | XMS REPORT | CCD ---
Author Author Joaquín Espinosa Organization [facility] Address [address] [place] [address] Phone Care Team Providers Care Room Service Food Service Attendant Name Role Phone PP Unavailable CCM Unavailable Summary Purpose Interface Exchange Insurance Providers Payer name Policy type / Coverage type Covered libertarian ID Effective Begin Date Effective End Date WPS Medicare Part B Medicare Part B [id number] Unknown Cigna Medicare Part B 36 [id number] Unknown Family history Grandfather Diagnosis Age At Onset lung cancer Unknown Runs in the family Diagnosis Age At Onset Cancer Unknown Grandfather Diagnosis Age At Onset Cancer Unknown Social History Social History Element Codes Description Effective Dates Marital status Unknown M arried Nitza 07/05/2015 Number of children Unknown 3 07/05/2015 Employment Unknown Retir ed 07/05/[address]: 2124940 Quit over 10 years ago 07/05/[address]: 905434 Currently drinks alcohol beer 07/05/2015 Allergies, Adverse Reactions, Alerts Substance Reaction Codes Entered Date Inactivated Date Status * NO KNOWN DRUG MEIR RGIES Unknown 07/05/2015 No Inactive Date Active Past Medical History Illness Codes Condition Status Onset Date Resolved Date Acute recurrent maxi llary sinusitis ICD-9: 461.0 [...] Codes Effectiv e Dates Condition Status Acute recurrent maxi llary sinusitis ICD-9: 461.0 [...] Fill Instructions naproxen 500 mg tablet RxNorm: 262693 1 Tablet(s) BID as needed for pain 09/24/2018 03/22/2019 Ac tive pantoprazole 40 mg t ablet,delayed release RxNorm: 932347 1 Tablet(s) BID 09/24/2018 12/17/2019 Ac tive Kenalog 40 mg/mL jenni pension for injection RxNorm: 9149430 1 Milliliter(s) Inj 08/25/2018 08/25/2018 In active pantoprazole 40 mg t ablet,delayed release RxNorm: 583578 TAKE 1 TABLET BY MOUT H TWICE DAILY 06/24/2018 09/23/2018 Inactive betamethasone diprop ionate 0.05 % topical cream RxNorm: 513831 1 Application TOP BID as needed 06/16/2018 No Stop Date Active prednisone 20 mg tablet RxNorm: 674474 2 Tablet(s) PO daily 06/16/2018 06/20/2018 Inactive Kenalog 40 mg/mL jenni pension for injection RxNorm: 1814844 1 Milliliter(s) Inj 06/16/2018 06/16/2018 In active naproxen 500 mg tablet RxNorm: 616249 TAKE 1 TABLET BY MOUTH TWICE DAILY NE EDED FOR PAIN 05/13/2018 09/23/2018 Inactive naproxen 500 mg tablet RxNorm: 155557 TAKE ONE TABLET BY MOUTH TWICE DAILY NEEDED FOR PAIN 01/07/2018 05/12/2018 Inactive escitalopram 20 mg t ablet RxNorm: 060253 TAKE ONE & ONE-HALF T ABLETS BY MOUTH IN THE EVENING 12/16/2017 No Stop Date Active pantoprazole 40 mg t ablet,delayed release RxNorm: 784355 1 Tablet(s) PO BID 11/21/2017 03/20/2018 In active Crestor 10 mg tablet RxNorm: 437624 1 Tablet(s) PO every other day 10/07/2017 06/28/2019 Ac tive naproxen 500 mg tablet RxNorm: 326477 TAKE ONE TABLET BY MOUTH TWICE DAILY NEEDED FOR PAIN 06/27/2017 12/23/2017 Inactive escitalopram 20 mg t ablet RxNorm: 037071 1 Tablet(s) PO QPM 06/03/2017 05/28/2018 Inactive pantoprazole 40 mg t ablet,delayed release RxNorm: 480271 1 Tablet(s) PO BID 03/19/2017 05/07/2017 In active naproxen 500 mg tablet RxNorm: 554329 TAKE ONE TABLET BY MOUTH TWICE DAILY NEEDED FOR PAIN 02/11/2017 06/10/2017 Inactive naproxen 500 mg tablet RxNorm: 238365 TAKE ONE TABLET BY MOUTH TWICE DAILY NEEDED FOR PAIN 12/14/2016 02/10/2017 Inactive escitalopram 20 mg t ablet RxNorm: 297169 1.5 Tablet(s) PO QPM 12/04/2016 06/02/2017 Inactive buspirone 5 mg tablet RxNorm: 453490 1 Tablet(s) PO BID 11/14/2016 12/03/2016 Inactive amoxicillin 500 mg c apsule RxNorm: 950927 1 Capsule(s) PO TID 09/17/2016 09/26/2016 Inactive prednisone 20 mg tablet RxNorm: 527000 2 Tablet(s) PO daily 09/17/2016 09/21/2016 Inactive escitalopram 20 mg t ablet RxNorm: 066529 1 Tablet(s) PO QPM 08/28/2016 12/03/2016 Inactive naproxen 500 mg tablet RxNorm: 348485 TAKE ONE TABLET BY MOUTH TWICE DAILY NEEDED FOR PAIN 08/01/2016 11/28/2016 Inactive sulfamethoxazole 800 mg-trimethoprim 160 mg tablet RxNorm: 812171 1 Tablet(s) PO BID 07/25/2016 07/31/2016 Inactive Kenalog 40 mg/mL jenni pension for injection RxNorm: 2254869 Milliliter(s) Inj 07/25/2016 07/25/2016 In active Symbicort 80 mcg-4.5 mcg/actuation HFA aerosol inhaler RxNorm: 8612195 2 INH QHS 07/25/2016 09/11/2016 In active escitalopram 20 mg t ablet RxNorm: 224988 1 Tablet(s) PO QPM 03/22/2016 08/27/2016 Inactive alprazolam 0.5 mg di sintegrating tablet RxNorm: 052695 1 Tablet(s) PO TID as needed anxiety 03/22/2016 11/13/2016 Inactive atorvastatin 20 mg t ablet RxNorm: 250826 1 Tablet(s) PO daily 01/12/2016 10/06/2017 Inactive Lexapro 10 mg tablet RxNorm: 066375 1 Tablet(s) PO QPM 01/12/2016 03/21/2016 Inactive pantoprazole 40 mg t ablet,delayed release RxNorm: 317541 1 Tablet(s) PO daily 10/13/2015 11/11/2015 In active pantoprazole 40 mg t ablet,delayed release RxNorm: 489459 1 Tablet(s) PO BID 09/13/2015 10/12/2015 In active naproxen 500 mg tablet RxNorm: 455958 Tablet(s) PO BID as needed for pain 07/05/2015 07/31/2016 In active folic acid 400 mcg t ablet RxNorm: 571260 1 Tablet(s) PO daily No Start Date Active Vitamin B12 500 mcg RxNorm: 2000 Microgram(s) PO daily No Start Date Active Toprol XL 50 mg tabl et,extended release RxNorm: 246272 1 Tablet(s) PO daily No Start Date Active Tudorza Pressair 400 mcg/actuation breath activated RxNorm: 5170185 1 INH QAM No Start Date Active aspirin 81 mg capsul e,delayed release RxNorm: 921777 1 Capsule(s) PO daily No Start Date Active Incruse Ellipta 62.5 mcg/actuation powder for inhalation RxNorm: 8937171 1 INH daily No Start Date Active clopidogrel 75 mg ta blet RxNorm: 996278 1 Tablet(s) PO daily No Start Date Active Symbicort 80 mcg-4.5 mcg/actuation HFA aerosol inhaler RxNorm: 1127744 2 INH QHS No Start Date 07/24/2016 Inactive pantoprazole 40 mg t ablet,delayed release RxNorm: 144732 1 Tablet(s) PO daily No Start Date 09/12/2015 Inactive atorvastatin 40 mg t ablet RxNorm: 244891 1 Tablet(s) PO daily No Start Date 01/11/2016 Inactive furosemide 20 mg tablet RxNorm: 111769 1 Tablet(s) PO daily No Start Date 09/11/2016 Inactive naproxen 500 mg tablet RxNorm: 694067 Tablet(s) PO TID No Start Date 07/04/2015 Inactive Medication Administered Medication Codes Instruc tions Start Date Status Kenalog 40 mg/mL suspension for injection RxNorm: 1457268 1Milliliter 08/25/2018 N o longer Active Kenalog 40 mg/mL suspension for injection RxNorm: 0343595 1Milliliter 06/16/2018 N o longer Active Kenalog 40 mg/mL suspension for injection RxNorm: 1119669 Milliliter 07/25/2016 No longer Active Immunizations Vaccine Codes Date Status Pneumococcal CVX: 33 09/2014 completed Assessments Condition Codes Effectiv e Dates Essential (primary) hypertension ICD -10: I10 ICD-9: [...] Reason For Visit Effective Dates Notes hypertension 08/25/2018 rash 06/16/2018 neck pain 04/24/2018 [...] 29.1 % 08/20/2018 Cbc With Differential Ord2 Isabela% 8.0 % 08/20/2018 Cbc With Differential Ord2 [...] 1.41 K/ul 08/20/2018 Cbc With Differential Ord2 Isabela ABS# 0.4 K/ul 08/20/2018 Cbc With Differential Ord2 Eos ABS# 0.1 K/ul 08/20/2018 Cbc With Differential Ord2 Baso ABS# 0.0 K/ul 08/20/2018 Tsh Ord6 TSH (3rd IS) 2.07 uIU/mL 08/20/2018 %Hba1C Ptg055 % HbA1c 28906-4 6.0 % 08/20/2018 %Hba1C Rsz043 Gluc Ave 126 mg/dL 08/20/2018 Comp Metabolic Lzb811 NA 142 mEq/L 08/20/2018 Comp Metabolic Shs662 K 4.2 mEq/L 08/20/2018 Comp Metabolic Pys345 CL 105 mEq/L 08/20/2018 Comp Metabolic Qqu302 CO2 30.0 mEq/L 08/20/2018 Comp Metabolic Tqu602 AN ION GAP 11 08/20/2018 Comp Metabolic Mth913 GL UCOSE 132 mg/dL 08/20/2018 Comp Metabolic Dyn197 Cr eat 1.3 mg/dL 08/20/2018 Comp Metabolic Hel275 eG FR 58 ml/min/1.73m2 08/20 Comp Metabolic Yax401 BUN 19 mg/dL 08/20/2018 Comp Metabolic Zjw100 B/ C Ratio 14.8 Ratio 08/20/2018 Comp Metabolic Wcr880 CA LCIUM 9.2 mg/dL 08/20/2018 Comp Metabolic Nvk160 AL K PHOS 72 U/L 08/20/2018 Comp Metabolic Luc332 T(SGOT) 21 U/L 08/20/2018 Comp Metabolic Fxw754 AL T(SGPT) 20 U/L 08/20/2018 Comp Metabolic Gpj579 BI LI T 1.1 mg/dL 08/20/2018 Comp Metabolic Wmy980 AL BUMIN 4.3 g/dL 08/20/2018 Comp Metabolic Fzo279 TP RO 6.6 g/dL 08/20/2018 Comp Metabolic Tij385 GL OB 2.3 g/dL 08/20/2018 Comp Metabolic Zwn493 A/ G Ratio 1.9 Ratio 08/20/2018 Comp Metabolic Mve225 Os mo 287 mOsmo 08/20/2018 %Hba1C Ncd177 % HbA1c 85949-7 5.9 % 11/20/2017 %Hba1C Pop334 Gluc Ave 123 mg/dL 11/20/2017 B12 Igo096 B12 1130.00 pg/ml 11/19/2017 Total Psa Ord10 [...] 86.8 fl 11/19/2017 Cbc With Differential Ord2 Isabela% 8.6 % 11/19/2017 Cbc With Differential Ord2 [...] 1.37 K/ul 11/19/2017 Cbc With Differential Ord2 Isabela ABS# 0.4 K/ul 11/19/2017 Cbc With Differential Ord2 Eos ABS# 0.0 K/ul 11/19/2017 Cbc With Differential Ord2 Baso ABS# 0.0 K/ul 11/19/2017 Comp Metabolic Bty533 NA 142 mEq/L 11/19/2017 Comp Metabolic Fwm066 K 4.3 mEq/L 11/19/2017 Comp Metabolic Ihb545 CL 104 mEq/L 11/19/2017 Comp Metabolic Vev266 CO2 29.0 mEq/L 11/19/2017 Comp Metabolic Tom587 AN ION GAP 13 11/19/2017 Comp Metabolic Rmc490 GL UCOSE 132 mg/dL 11/19/2017 Comp Metabolic Ttt614 Cr eat 1.2 mg/dL 11/19/2017 Comp Metabolic Cfq361 eG FR 63 ml/min/1.73m2 11/19 Comp Metabolic Xbn699 BUN 20 mg/dL 11/19/2017 Comp Metabolic Cyp733 B/ C Ratio 16.8 Ratio 11/19/2017 Comp Metabolic Doz676 CA LCIUM 9.3 mg/dL 11/19/2017 Comp Metabolic Swg129 AL K PHOS 74 U/L 11/19/2017 Comp Metabolic Iuc029 T(SGOT) 15 U/L 11/19/2017 Comp Metabolic Ejg085 AL T(SGPT) 15 U/L 11/19/2017 Comp Metabolic Lmu225 BI LI T 0.9 mg/dL 11/19/2017 Comp Metabolic Ber261 AL BUMIN 4.3 g/dL 11/19/2017 Comp Metabolic Opn842 TP RO 6.6 g/dL 11/19/2017 Comp Metabolic Uln089 GL OB 2.3 g/dL 11/19/2017 Comp Metabolic Dda943 A/ G Ratio 1.9 Ratio 11/19/2017 Comp Metabolic Uhf423 Os mo 288 mOsmo 11/19/2017 Tsh Ord6 [...] 30.2 pg 11/16/2016 Cbc With Differential Ord2 Isabela% 10.2 % 11/16/2016 Cbc With Differential Ord2 [...] 1.46 K/ul 11/16/2016 Cbc With Differential Ord2 Isabela ABS# 0.5 K/ul 11/16/2016 Cbc With Differential Ord2 Eos ABS# 0.1 K/ul 11/16/2016 Cbc With Differential Ord2 Baso ABS# 0.0 K/ul 11/16/2016 Comp Metabolic Goc546 NA 141 mEq/L 11/16/2016 Comp Metabolic Niy082 K 4.2 mEq/L 11/16/2016 Comp Metabolic Bsc688 CL 106 mEq/L 11/16/2016 Comp Metabolic Bgx076 CO2 30.0 mEq/L 11/16/2016 Comp Metabolic Wwj822 AN ION GAP 9 11/16/2016 Comp Metabolic Mjh957 GL UCOSE 118 mg/dL 11/16/2016 Comp Metabolic Eyo516 Cr eat 1.2 mg/dL 11/16/2016 Comp Metabolic Dil269 eG FR 61 ml/min/1.73m2 11/16 Comp Metabolic Quj305 BUN 22 mg/dL 11/16/2016 Comp Metabolic Kqs678 B/ C Ratio 17.7 Ratio 11/16/2016 Comp Metabolic Jct558 CA LCIUM 9.2 mg/dL 11/16/2016 Comp Metabolic Yby807 AL K PHOS 91 U/L 11/16/2016 Comp Metabolic Dem099 T(SGOT) 16 U/L 11/16/2016 Comp Metabolic Ucb768 AL T(SGPT) 16 U/L 11/16/2016 Comp Metabolic Gjl971 BI LI T 0.9 mg/dL 11/16/2016 Comp Metabolic Xuc365 AL BUMIN 4.1 g/dL 11/16/2016 Comp Metabolic Zia583 TP RO 6.4 g/dL 11/16/2016 Comp Metabolic Fsk380 GL OB 2.3 g/dL 11/16/2016 Comp Metabolic Utg017 A/ G Ratio 1.8 Ratio 11/16/2016 Comp Metabolic Ggo423 Os mo 286 mOsmo 11/16/2016 Lipid Ord30 [...] 1.8 mg/dL 08/01/2015 B Type Natriuretic Peptide Izb9152 B-TRIMMER OPERATOR 13.10 pg/ml 08/01/2015 Lipid Ord30 CHOL 188 [...] Ord2 RDW 14.7 % 08/01/2015 Comp Metabolic Rqw389 NA 138 mEq/L 08/01/2015 Comp Metabolic Zdp637 K 4.2 mEq/L 08/01/2015 Comp Metabolic Qwk867 CL 104 mEq/L 08/01/2015 Comp Metabolic Ezy493 CO2 27.0 mEq/L 08/01/2015 Comp Metabolic Wag695 AN ION GAP 11 08/01/2015 Comp Metabolic Mdx240 GL UCOSE 118 mg/dL 08/01/2015 Comp Metabolic Hnz210 Cr eat 1.2 mg/dL 08/01/2015 Comp Metabolic Vag614 eG FR 66 ml/min/1.73m2 08/01 Comp Metabolic Ffd376 BUN 19 mg/dL 08/01/2015 Comp Metabolic Qip451 B/ C Ratio 16.4 Ratio 08/01/2015 Comp Metabolic Azr893 CA LCIUM 8.7 mg/dL 08/01/2015 Comp Metabolic Chm282 AL K PHOS 85 U/L 08/01/2015 Comp Metabolic Otl516 T(SGOT) 16 U/L 08/01/2015 Comp Metabolic Qdx813 AL T(SGPT) 20 U/L 08/01/2015 Comp Metabolic Pwj172 BI LI T 0.7 mg/dL 08/01/2015 Comp Metabolic Fdz187 AL BUMIN 3.9 g/dL 08/01/2015 Comp Metabolic Jtg633 TP RO 6.2 g/dL 08/01/2015 Comp Metabolic Dad784 GL OB 2.4 g/dL 08/01/2015 Comp Metabolic Juk275 A/ G Ratio 1.6 Ratio 08/01/2015 Comp Metabolic Erv039 Os mo 279 mOsmo 08/01/2015 Tsh Ord6 hTSH II 1.79 uIU/mL 08/01/2015 Sed Rate Ord21 ESR 1 mm/hr 08/01/2015 Tsh Ord6 hTSH II 2.43 uIU/mL 07/07/2015 Folate Ord36 Folate 7.62 ng/mL 07/07/2015 B12 Rxu113 B12 228.00 pg/ml 07/07/2015 Review of Systems System Result Effective Dates Constitutional recent illness 08/25/2018 Constitutional No chills [...] Location: face 08/25/2018 on 3 on left latter day, 2 on right latter day and 1 each on dorsum of hands [...] Location: face 11/04/2017 on 3 on left latter day, 2 on right latter day and 1 each on dorsum of hands [...] accomodation 12/04/2016 None Full Exam - General 1995 [...] 1995 Ears/Nose/Throat oral cavity/pharynx/larynx Overall: hypopharynx benign 12/04/2016 [...] CPT-4: J3301 08/25/2018 THER/PROPH/DIAG INJ SC/IM CPT-4: 04582 06/16/2018 TRIAMCINOLONE ACET I [place] NOS CPT-4: J3301 06/16/2018 PPPS, SUBSEQ VISIT CPT- 4: G0439 11/19/2017 DESTRUCT PREMALG LESION CPT-4: 51667 11/04/2017 DESTRUCT PREMALG LES 2-14 CPT-4: 75011 11/04/2017 PPPS, SUBSEQ VISIT CPT- 4: G0439 11/16/2016 THER/PROPH/DIAG INJ SC/IM CPT-4: 16070 07/25/2016 TRIAMCINOLONE ACET I [place] NOS CPT-4: J3301 07/25/2016 Vital Signs Date Vital 08/25/2018 Blood Pressure 1: 128/68 Code: 8480-6 BMI: 39.8 Code: 76845-8 Heart Rate 1: 55 bpm Height: 5'7" SpO2: 97% Weight: 254 lbs 06/16/2018 Blood Pressure 1: 120/67 Code: 8480-6 BMI: 40.1 Code: 64753-4 Heart Rate 1: 83 bpm Height: 5'7" SpO2: 95% Weight: 256 lbs 04/24/2018 Blood Pressure 1: 134/76 Code: 8480-6 BMI: 39.3 Code: 45515-7 Heart Rate 1: 55 bpm Height: 5'7" SpO2: 95% Weight: 251 lbs 11/19/2017 Blood Pressure 1: 130/62 Code: 8480-6 BMI: 38.1 Code: 82184-8 Heart Rate 1: 73 bpm Height: 5'7" SpO2: 93% Waist Measure (cm): 99 cm Weight: 243 lbs 11/04/2017 Blood Pressure 1: 136/68 Code: 8480-6 BMI: 38.2 Code: 14867-1 Heart Rate 1: 61 bpm Height: 5'7" SpO2: 98% Weight: 244 lbs 10/07/2017 Blood Pressure 1: 150/70 Code: 8480-6 BMI: 39.5 Code: 13772-2 Heart Rate 1: 65 bpm Height: 5'7" SpO2: 97% Weight: 252 lbs 06/03/2017 Blood Pressure 1: 140/70 Code: 8480-6 BMI: 37.9 Code: 33119-6 Heart Rate 1: 66 bpm Height: 5'7" SpO2: 96% Weight: 242 lbs 03/19/2017 Blood Pressure 1: 136/82 Code: 8480-6 BMI: 38.8 Code: 98516-7 Heart Rate 1: 58 bpm Height: 5'7" SpO2: 94% Weight: 247 lbs 8 oz 01/21/2017 Blood Pressure 1: 136/74 Code: 8480-6 BMI: 39.1 Code: 08759-2 Heart Rate 1: 58 bpm Height: 5'7" SpO2: 97% Weight: 249 lbs 8 oz 12/04/2016 Blood Pressure 1: 136/72 Code: 8480-6 Heart Rate 1: 55 bpm Height: 5'7" SpO2: 99% Weight: 11/16/2016 Blood Pressure 1: 124/76 Code: 8480-6 BMI: 39.2 Code: 92482-2 Heart Rate 1: 62 bpm Height: 5'7" SpO2: 96% Waist Measure (cm): 104 cm Weight: 250 lbs 11/14/2016 Blood Pressure 1: 152/60 Code: 8480-6 BMI: 39.8 Code: 27331-1 Heart Rate 1: 63 bpm Height: 5'7" SpO2: 94% Weight: 254 lbs 09/17/2016 Blood Pressure 1: 138/70 Code: 8480-6 BMI: 40.3 Code: 88538-8 Heart Rate 1: 60 bpm Height: 5'7" SpO2: 96% Weight: 257 lbs 08/03/2016 Blood Pressure 1: 148/78 Code: 8480-6 BMI: 39.9 Code: 21150-5 Heart Rate 1: 50 bpm Height: 5'7" SpO2: 97% Weight: 255 lbs 07/25/2016 Blood Pressure 1: 130/68 Code: 8480-6 BMI: 39.9 Code: 07815-3 Heart Rate 1: 61 bpm Height: 5'7" SpO2: 95% Weight: 255 lbs 03/22/2016 Blood Pressure 1: 136/76 Code: 8480-6 BMI: 39.0 Code: 28492-0 Heart Rate 1: 60 bpm Height: 5'7" SpO2: 98% Weight: 249 lbs 01/12/2016 Blood Pressure 1: 146/76 Code: 8480-6 BMI: 37.8 Code: 47450-4 Heart Rate 1: 59 bpm Height: 5'7" SpO2: 98% Weight: 241 lbs 8 oz 10/13/2015 Blood Pressure 1: 136/72 Code: 8480-6 BMI: 37.6 Code: 73390-1 Heart Rate 1: 70 bpm Height: 5'7" SpO2: 99% Weight: 240 lbs 09/13/2015 Blood Pressure 1: 140/80 Code: 8480-6 BMI: 37.2 Code: 82890-4 Heart Rate 1: 64 bpm Height: 5'7" SpO2: 97% Weight: 237 lbs 8 oz 07/05/2015 Blood Pressure 1: 130/70 Code: 8480-6 Blood Pressure 1: 170/84 Code: 8480-6 BMI: 35.9 Code: 41129-0 Heart Rate 1: 67 bpm Height: 5'7" SpO2: 95% Weight: 229 lbs Functional Status No Functional Status data History of Present Illness Symptom Name Status Resu lt Effective Date Notes Quality primary hypert ension 08/25/2018 None Onset [...] Encounters Encounter Performer Loca tion Codes Date ([id number]) 26635 EST. P ATIENT, LEVEL IV Diagnosis: Essential (primary) hypertension[ICD10: I10] Diagnosis: Mixed hyperlipidemia[ICD10: E78.2] Diagnosis: Other allergic rhinitis[ICD10: J30.89] Kathy Espinosa MD, [facility] CPT-4: 82431 08/25/2018 07617 EST. PATIENT, LEVEL III Diagnosis: Other pruritus[ICD10: L29.8] Diagnosis: Allergic contact dermatitis due to plants, except food[ICD10: L23.7] Alba Espinosa MD, [facility] CPT-4: 16567 06/16/2018 ([id number]) 06337 EST. P ATIENT, LEVEL IV Diagnosis: Essential (primary) hypertension[ICD10: I10] Diagnosis: Allergic dermatitis of left upper eyelid[ICD10: H01.114] Diagnosis: Allergic rhinitis due to pollen[ICD10: J30.1] Kathy Espinosa MD, [facility] CPT-4: 31712 04/24/2018 ([id number]) 24756 EST. P ATIENT, LEVEL IV Diagnosis: Essential (primary) hypertension[ICD10: I10] Diagnosis: Mixed hyperlipidemia[ICD10: E78.2] Diagnosis: Actinic keratosis[ICD10: L57.0] Kathy Espinosa MD, [facility] CPT-4: 96915 11/04/2017 ([id number]) 69483 EST. P ATIENT, LEVEL IV Diagnosis: Essential (primary) hypertension[ICD10: I10] Diagnosis: Cervicalgia[ICD10: M54.2] Diagnosis: Myalgia[ICD10: M79.1] Kathy Espinosa MD, [facility] CPT-4: 77859 10/07/2017 ([id number]) 90715 EST. P ATIENT, LEVEL IV Diagnosis: Essential (primary) hypertension[ICD10: I10] Diagnosis: Major depressive disorder, recurrent, mild[ICD10: F33.0] Diagnosis: Generalized anxiety disorder[ICD10: F41.1] Kathy Espinosa MD, [facility] CPT-4: 28139 06/03/2017 ([id number]) 84653 EST. P ATIENT, LEVEL IV Diagnosis: Essential (primary) hypertension[ICD10: I10] Diagnosis: Mixed hyperlipidemia[ICD10: E78.2] Diagnosis: Low back pain[ICD10: M54.5] Kathy Espinosa MD, [facility] CPT-4: 09554 03/19/2017 ([id number]) 22138 EST. P ATIENT, LEVEL III Diagnosis: Pain in right lower leg[ICD10: M79.661] Diagnosis: Localized edema[ICD10: R60.0] Diagnosis: Contusion of right lower leg, initial encounter[ICD10: S80.11XA] Amanda Espinosa MD, [facility] CPT-4: 38091 01/21/2017 ([id number]) 71195 EST. P ATIENT, LEVEL IV Diagnosis: Mixed hyperlipidemia[ICD10: E78.2] Diagnosis: Major depressive disorder, recurrent, moderate[ICD10: F33.1] Kathy Espinosa MD, [facility] CPT-4: 46871 12/04/2016 ([id number]) 67402 EST. P ATIENT, LEVEL IV Diagnosis: Mixed hyperlipidemia[ICD10: E78.2] Diagnosis: Major depressive disorder, recurrent, mild[ICD10: F33.0] Diagnosis: Generalized anxiety disorder[ICD10: F41.1] Diagnosis: Essential (primary) hypertension[ICD10: I10] Diagnosis: Chronic obstructive pulmonary disease with (acute) exacerbation[ICD10: J44.1] Kathy Espinosa MD, [facility] CPT-4: 47698 11/14/2016 97572 EST. PATIENT, LEVEL III Diagnosis: Acute laryngopharyngitis[ICD10: J06.0] Diagnosis: Other allergic rhinitis[ICD10: J30.89] Alba Espinosa MD, [facility] CPT-4: 45643 09/17/2016 39471 EST. PATIENT, LEVEL III Diagnosis: Contusion of right lower leg, initial encounter[ICD10: S80.11XA] Alba Espinosa MD, [facility] CPT-4: 76491 08/03/2016 ([id number]) 79521 EST. P ATIENT, LEVEL IV Diagnosis: Essential (primary) hypertension[ICD10: I10] Diagnosis: Mixed hyperlipidemia[ICD10: E78.2] Diagnosis: Acute recurrent maxillary sinusitis[ICD10: J01.01] Diagnosis: Chronic obstructive pulmonary disease with (acute) exacerbation[ICD10: J44.1] Kathy Espinosa MD, [facility] CPT-4: 97921 07/25/2016 ([id number]) 85123 EST. P ATIENT, LEVEL IV Diagnosis: Essential (primary) hypertension[ICD10: I10] Diagnosis: Gastro-esophageal reflux disease without esophagitis[ICD10: K21.9] Diagnosis: Generalized anxiety disorder[ICD10: F41.1] Diagnosis: Major depressive disorder, recurrent, mild[ICD10: F33.0] Kathy Espinosa MD, [facility] CPT-4: 52436 03/22/2016 ([id number]) 93431 EST. P ATIENT, LEVEL IV Diagnosis: Essential (primary) hypertension[ICD10: I10] Diagnosis: Coronary angioplasty status[ICD10: Z98.61] Diagnosis: Hyperlipidemia, unspecified[ICD10: E78.5] Diagnosis: Major depressive disorder, recurrent, moderate[ICD10: F33.1] Kathy Espinosa MD, [facility] CPT-4: 45853 01/12/2016 ([id number]) 22911 EST. P ATIENT, LEVEL IV Diagnosis: Essential (primary) hypertension[ICD10: I10] Diagnosis: Gastro-esophageal reflux disease without esophagitis[ICD10: K21.9] Kathy Espinosa MD, [facility] CPT-4: 26765 10/13/2015 ([id number]) 71662 EST. P ATIENT, LEVEL IV Diagnosis: Gastro-esophageal reflux disease without esophagitis[ICD10: K21.9] Diagnosis: Essential (primary) hypertension[ICD10: I10] Diagnosis: Coronary angioplasty status[ICD10: Z98.61] Kathy Espinosa MD, [facility] CPT-4: 71491 09/13/2015 ([id number]) [facility] - LEVEL 4 Diagnosis: Hyperlipidemia, unspecified[ICD10: E78.5] Diagnosis: Personal history of other diseases of the circulatory system[ICD10: Z86.79] Diagnosis: Unspecified osteoarthritis, unspecified site[ICD10: M19.90] Diagnosis: Polyneuropathy, unspecified[ICD10: G62.9] Kathy Espinosa MD, [facility] CPT-4: 82173 07/05/2015 Plan of Care Planned Activity Notes [...] in clinic 08/25/2018 Appointment: Kathy Espinosa WPtel: [address] [place], [place] [phone] (15 min) Moderate 08/25/2018 Patient Education: Patient [...] worsen. 06/16/2018 Appointment: [facility] [phone] [facility] [place] (15 min) Moderate 06/16/2018 Patient Education: Patient Medication Summary Completed 06/16/2018 Patient Education: Poison Ashley Completed 06/16/2018 Appointment: Amanda Romero WPtel: [phone] [phone] [place] (15 min) Moderate 05/23/2018 [phone] [facility] [place] (15 min) Moderate 05/15/2018 Visit Plan: [...] office 04/24/2018 Appointment[facility] [phone] [facility] [place] (15 min) Moderate 04/24/2018 Patient Education: Patient Medication Summary Completed 04/24/2018 App[facility]ment: [facility] [phone] [facility] [place] (15 min) Moderate 02/25/2018 Appointment: Kathy Espinosa WPtel: [phone] [facility] [place] (15 min) Moderate 02/20/2018 Appointment: [facility] [phone] [facility] [place] (15 min) Moderate 02/13/2018 [...] care surrogate. 11/19/2017 Appointment: Amanda Romero WPtel: [address] [place], [place] [phone] [facility] - Annual Wellness Visit [...] - one lesion each hand and on latter day x 3 lesions and 2 lesions right latter day 11/04/2017 Appointment: Kathy Espinosa WPtel: [facility] (15 min) Moderate 11/04/2017 Patient Education: Patient [...] two weeks. 10/07/2017 Appointment: Kathy Espinosa WPtel: [facility] (15 min) Moderate 10/07/2017 Patient Education: Patient [...] flu shots 06/03/2017 Appointment: Kathy Espinosa WPtel: [facility] (15 min) Moderate 06/03/2017 Patient Education: Patient Medication Summary Completed 06/03/2017 Patient Education: Obesity Completed 06/03/2017 App[facility]ment: [facility] [phone] [facility] (15 min) Moderate 05/22/2017 Visit Plan: Hypertension - well con tashi - continue with current medications, continue with [...] back 03/19/2017 Appointment: Kathy Espinosa WPtel: [phone] [id number] (15 min) Moderate 03/19/2017 Patient Education: Patient [...] doppler. 01/21/2017 Appointment: Amanda Romero WPtel: [phone] [phone] [place] (15 min) Moderate 01/21/2017 Patient Education: [...] medications. 12/04/2016 Appointment: Kathy Espinosa WPtel: [phone] [facility] [id number] (15 min) Moderate 12/04/2016 Patient Education: Patient [...] surrogate. 11/16/2016 Appointment: [phone] [facility] - Annual Wellness [facility] [...] concerns. 11/14/2016 Appointment: Kathy Espinosa WPtel: [phone] [facility] [place] (15 min) Moderate 11/14/2016 Patient Education: Patient Medication Summary Completed 11/14/2016 Patient Education: Obesity Completed 11/14/2016 Appointment: Kathy Espinosa WPtel: [phone] [facility] (15 min) Moderate 10/24/2016 Visit Plan: URI [...] Romero WPtel: [address] [id number] [place] (15 min) Moderate 08/03/2016 Patient Education: [...] show improvement. 07/25/2016 Appointment: Kathy Espinosa WPtel: [address] [place], [place] [id number] (15 min) Moderate 07/25/2016 Patient Education: Patient [...] current medications. 01/12/2016 Appointment: Kathy Espinosa WPtel: [facility] [address] (15 min) Moderate 01/12/2016 Patient Education: Patient Medication Summary Completed 01/12/2016 Patient Education: Obesity Completed 01/12/2016 Patient Education: Hypertension Completed 01/12/2016 Appointment: Kathy Espinosa WPtel: [facility] [address] (15 min) Moderate 12/01/2015 Visit Plan: [...] not improving. 10/13/2015 Appointment: Kathy Espinosa WPtel: [facility] [address] (15 min) Moderate 10/13/2015 Patient Education: [...] TWICE DAILY 09/13/2015 Appointment: Kathy Espinosa WPtel: [facility] (15 min) Moderate 09/13/2015 Patient Education: Patient Medication Summary Completed 09/13/2015 Patient Education: Hypertension Completed 09/13/2015 Appointment: Kathy Espinosa WPtel: [facility] (15 min) Moderate 08/09/2015 Visit Plan: Hyperlipidemia [...] and lipitor. 07/05/2015 Appointment: Kathy Espinosa WPtel: [facility] New Patient 07/05/2015 Patient Education: Patient Medication Summary Completed 07/05/2015 Referral: Heber Almanza Referral Appointment Requested Referral: Heber Almanza Pt's informed that referral paperwork sent. If they do not hear anything back by next Mon/Tues to let me know. Completed Instructions Comment milagros 180mg daily x 2 weeks zatador [...] her DOPA paperwork for health care surrogate. steroid shot today steroid pills that you [...] - one lesion each hand and on latter day x 3 lesions and 2 lesions right latter day . Hypertension - wel l controlled - [...] if symptoms do not show improvement. . Hyperlipidemia - pt has been counseled [...] we will send a refer ral to [facility] for physical therapy for your neck . [...] Pt does not take the flu shots - books about weigh t loss - "the wild diet" - author - makyala marks - and "grain brain" - author [...]
--- OUTSIDE RECORDS SUMMARY | 2020-04-12 22:31 | XMS REPORT | CCD ---
Author Author Joaquín Espinosa Organization [facility] Address [address] [place] [address] Phone Care Team Providers Care Sanitor Name Role Phone PP Unavailable CCM Unavailable Summary Purpose Interface Exchange Insurance Providers Payer name Policy type / Coverage type Covered constitution party ID Effective Begin Date Effective End Date WPS Medicare Part B Medicare Part B [id number] Unknown Cigna Medicare Part B 36 [id number] Unknown Family history Grandfather Diagnosis Age At Onset lung cancer Unknown Runs in the family Diagnosis Age At Onset Cancer Unknown Grandfather Diagnosis Age At Onset Cancer Unknown Social History Social History Element Codes Description Effective Dates Marital status Unknown M arried Nitza 07/05/2015 Number of children Unknown 3 07/05/2015 Employment Unknown Retir ed 07/05/[address]: 8795535 Quit over 10 years ago 07/05/[address]: 400003 Currently drinks alcohol beer 07/05/2015 Allergies, Adverse [...] ICD-10: J30.1 Active 04/24/2018 Unknown Encounter for [facility] adult medical examination without abnormal findings [...] Date Stop Date Sta tus Fill Instructions Kenalog 40 mg/mL jenni pension for injection RxNorm: 4530011 1 Milliliter(s) Inj 08/25/2018 08/25/2018 In active pantoprazole 40 mg t ablet,delayed release RxNorm: 035433 TAKE 1 TABLET BY MOUT H TWICE DAILY 06/24/2018 No Stop Date Active betamethasone diprop ionate 0.05 % topical cream RxNorm: 555254 1 Application TOP BID as needed 06/16/2018 No Stop Date Active prednisone 20 mg tablet RxNorm: 687894 2 Tablet(s) PO daily 06/16/2018 06/20/2018 Inactive Kenalog 40 mg/mL jenni pension for injection RxNorm: 3134082 1 Milliliter(s) Inj 06/16/2018 06/16/2018 In active naproxen 500 mg tablet RxNorm: 272230 TAKE 1 TABLET BY MOUTH TWICE DAILY NE EDED FOR PAIN 05/13/2018 No Stop Date Active naproxen 500 mg tablet RxNorm: 920501 TAKE ONE TABLET BY MOUTH TWICE DAILY NEEDED FOR PAIN 01/07/2018 05/12/2018 Inactive escitalopram 20 mg t ablet RxNorm: 260450 TAKE ONE & ONE-HALF T ABLETS BY MOUTH IN THE EVENING 12/16/2017 No Stop Date Active pantoprazole 40 mg t ablet,delayed release RxNorm: 288793 1 Tablet(s) PO BID 11/21/2017 03/20/2018 In active Crestor 10 mg tablet RxNorm: 552534 1 Tablet(s) PO every other day 10/07/2017 06/28/2019 Ac tive naproxen 500 mg tablet RxNorm: 908099 TAKE ONE TABLET BY MOUTH TWICE DAILY NEEDED FOR PAIN 06/27/2017 12/23/2017 Inactive escitalopram 20 mg t ablet RxNorm: 329695 1 Tablet(s) PO QPM 06/03/2017 05/28/2018 Inactive pantoprazole 40 mg t ablet,delayed release RxNorm: 249962 1 Tablet(s) PO BID 03/19/2017 05/07/2017 In active naproxen 500 mg tablet RxNorm: 666325 TAKE ONE TABLET BY MOUTH TWICE DAILY NEEDED FOR PAIN 02/11/2017 06/10/2017 Inactive naproxen 500 mg tablet RxNorm: 450537 TAKE ONE TABLET BY MOUTH TWICE DAILY NEEDED FOR PAIN 12/14/2016 02/10/2017 Inactive escitalopram 20 mg t ablet RxNorm: 793497 1.5 Tablet(s) PO QPM 12/04/2016 06/02/2017 Inactive buspirone 5 mg tablet RxNorm: 705918 1 Tablet(s) PO BID 11/14/2016 12/03/2016 Inactive amoxicillin 500 mg c apsule RxNorm: 454837 1 Capsule(s) PO TID 09/17/2016 09/26/2016 Inactive prednisone 20 mg tablet RxNorm: 698217 2 Tablet(s) PO daily 09/17/2016 09/21/2016 Inactive escitalopram 20 mg t ablet RxNorm: 026151 1 Tablet(s) PO QPM 08/28/2016 12/03/2016 Inactive naproxen 500 mg tablet RxNorm: 638139 TAKE ONE TABLET BY MOUTH TWICE DAILY NEEDED FOR PAIN 08/01/2016 11/28/2016 Inactive sulfamethoxazole 800 mg-trimethoprim 160 mg tablet RxNorm: 392941 1 Tablet(s) PO BID 07/25/2016 07/31/2016 Inactive Kenalog 40 mg/mL jenni pension for injection RxNorm: 7876120 Milliliter(s) Inj 07/25/2016 07/25/2016 In active Symbicort 80 mcg-4.5 mcg/actuation HFA aerosol inhaler RxNorm: 4781865 2 INH QHS 07/25/2016 09/11/2016 In active escitalopram 20 mg t ablet RxNorm: 735009 1 Tablet(s) PO QPM 03/22/2016 08/27/2016 Inactive alprazolam 0.5 mg di sintegrating tablet RxNorm: 147564 1 Tablet(s) PO TID as needed anxiety 03/22/2016 11/13/2016 Inactive atorvastatin 20 mg t ablet RxNorm: 304571 1 Tablet(s) PO daily 01/12/2016 10/06/2017 Inactive Lexapro 10 mg tablet RxNorm: 994278 1 Tablet(s) PO QPM 01/12/2016 03/21/2016 Inactive pantoprazole 40 mg t ablet,delayed release RxNorm: 621539 1 Tablet(s) PO daily 10/13/2015 11/11/2015 In active pantoprazole 40 mg t ablet,delayed release RxNorm: 010966 1 Tablet(s) PO BID 09/13/2015 10/12/2015 In active naproxen 500 mg tablet RxNorm: 718105 Tablet(s) PO BID as needed for pain 07/05/2015 07/31/2016 In active folic acid 400 mcg t ablet RxNorm: 366145 1 Tablet(s) PO daily No Start Date Active Vitamin B12 500 mcg RxNorm: 2000 Microgram(s) PO daily No Start Date Active Toprol XL 50 mg tabl et,extended release RxNorm: 849736 1 Tablet(s) PO daily No Start Date Active Tudorza Pressair 400 mcg/actuation breath activated RxNorm: 9625704 1 INH QAM No Start Date Active aspirin 81 mg capsul e,delayed release RxNorm: 317014 1 Capsule(s) PO daily No Start Date Active Incruse Ellipta 62.5 mcg/actuation powder for inhalation RxNorm: 7688534 1 INH daily No Start Date Active clopidogrel 75 mg ta blet RxNorm: 821591 1 Tablet(s) PO daily No Start Date Active Symbicort 80 mcg-4.5 mcg/actuation HFA aerosol inhaler RxNorm: 4728712 2 INH QHS No Start Date 07/24/2016 Inactive pantoprazole 40 mg t ablet,delayed release RxNorm: 070656 1 Tablet(s) PO daily No Start Date 09/12/2015 Inactive atorvastatin 40 mg t ablet RxNorm: 244338 1 Tablet(s) PO daily No Start Date 01/11/2016 Inactive furosemide 20 mg tablet RxNorm: 514438 1 Tablet(s) PO daily No Start Date 09/11/2016 Inactive naproxen 500 mg tablet RxNorm: 797115 Tablet(s) PO TID No Start Date 07/04/2015 Inactive Medication Administered Medication Codes Instruc tions Start Date Status Kenalog 40 mg/mL suspension for injection RxNorm: 9066192 1Milliliter 08/25/2018 A ctive Kenalog 40 mg/mL suspension for injection RxNorm: 7309840 1Milliliter 06/16/2018 N o longer Active Kenalog 40 mg/mL suspension for injection RxNorm: 8194707 Milliliter 07/25/2016 No longer Active Immunizations Vaccine [...] 29.1 % 08/20/2018 Cbc With Differential Ord2 Baxter% 8.0 % 08/20/2018 Cbc With Differential Ord2 [...] 1.41 K/ul 08/20/2018 Cbc With Differential Ord2 Baxter ABS# 0.4 K/ul 08/20/2018 Cbc With Differential Ord2 Eos ABS# 0.1 K/ul 08/20/2018 Cbc With Differential Ord2 Baso ABS# 0.0 K/ul 08/20/2018 Tsh Ord6 TSH (3rd IS) 2.07 uIU/mL 08/20/2018 %Hba1C Lnt101 % HbA1c 55688-2 6.0 % 08/20/2018 %Hba1C Wfz502 Gluc Ave 126 mg/dL 08/20/2018 Comp Metabolic Zeu730 NA 142 mEq/L 08/20/2018 Comp Metabolic Tau909 K 4.2 mEq/L 08/20/2018 Comp Metabolic Aoz277 CL 105 mEq/L 08/20/2018 Comp Metabolic Uax320 CO2 30.0 mEq/L 08/20/2018 Comp Metabolic Rah905 AN ION GAP 11 08/20/2018 Comp Metabolic Psp336 GL UCOSE 132 mg/dL 08/20/2018 Comp Metabolic Hof470 Cr eat 1.3 mg/dL 08/20/2018 Comp Metabolic Htk703 eG FR 58 ml/min/1.73m2 08/20 Comp Metabolic Fze711 BUN 19 mg/dL 08/20/2018 Comp Metabolic Tss948 B/ C Ratio 14.8 Ratio 08/20/2018 Comp Metabolic Ipg415 CA LCIUM 9.2 mg/dL 08/20/2018 Comp Metabolic Viz877 AL K PHOS 72 U/L 08/20/2018 Comp Metabolic Gpf660 T(SGOT) 21 U/L 08/20/2018 Comp Metabolic Tan564 AL T(SGPT) 20 U/L 08/20/2018 Comp Metabolic Lkb573 BI LI T 1.1 mg/dL 08/20/2018 Comp Metabolic Tuj812 AL BUMIN 4.3 g/dL 08/20/2018 Comp Metabolic Gev595 TP RO 6.6 g/dL 08/20/2018 Comp Metabolic Xon552 GL OB 2.3 g/dL 08/20/2018 Comp Metabolic Eei954 A/ G Ratio 1.9 Ratio 08/20/2018 Comp Metabolic Emt039 Os mo 287 mOsmo 08/20/2018 %Hba1C Mxz085 % HbA1c 80462-9 5.9 % 11/20/2017 %Hba1C Odm492 Gluc Ave 123 mg/dL 11/20/2017 B12 Xas653 B12 1130.00 pg/ml 11/19/2017 Total Psa Ord10 [...] 86.8 fl 11/19/2017 Cbc With Differential Ord2 Baxter% 8.6 % 11/19/2017 Cbc With Differential Ord2 [...] 1.37 K/ul 11/19/2017 Cbc With Differential Ord2 Baxter ABS# 0.4 K/ul 11/19/2017 Cbc With Differential Ord2 Eos ABS# 0.0 K/ul 11/19/2017 Cbc With Differential Ord2 Baso ABS# 0.0 K/ul 11/19/2017 Comp Metabolic Jbf955 NA 142 mEq/L 11/19/2017 Comp Metabolic Jde568 K 4.3 mEq/L 11/19/2017 Comp Metabolic Zhq190 CL 104 mEq/L 11/19/2017 Comp Metabolic Cgw903 CO2 29.0 mEq/L 11/19/2017 Comp Metabolic Svy246 AN ION GAP 13 11/19/2017 Comp Metabolic Ram545 GL UCOSE 132 mg/dL 11/19/2017 Comp Metabolic Edf845 Cr eat 1.2 mg/dL 11/19/2017 Comp Metabolic Kmr894 eG FR 63 ml/min/1.73m2 11/19 Comp Metabolic Nat940 BUN 20 mg/dL 11/19/2017 Comp Metabolic Nwh548 B/ C Ratio 16.8 Ratio 11/19/2017 Comp Metabolic Cxa723 CA LCIUM 9.3 mg/dL 11/19/2017 Comp Metabolic Eme956 AL K PHOS 74 U/L 11/19/2017 Comp Metabolic Mkh193 T(SGOT) 15 U/L 11/19/2017 Comp Metabolic Dvi046 AL T(SGPT) 15 U/L 11/19/2017 Comp Metabolic Iie288 BI LI T 0.9 mg/dL 11/19/2017 Comp Metabolic Cub190 AL BUMIN 4.3 g/dL 11/19/2017 Comp Metabolic Jot373 TP RO 6.6 g/dL 11/19/2017 Comp Metabolic Rlk570 GL OB 2.3 g/dL 11/19/2017 Comp Metabolic Bns008 A/ G Ratio 1.9 Ratio 11/19/2017 Comp Metabolic Kqe000 Os mo 288 mOsmo 11/19/2017 Tsh Ord6 [...] 30.2 pg 11/16/2016 Cbc With Differential Ord2 Baxter% 10.2 % 11/16/2016 Cbc With Differential Ord2 [...] 1.46 K/ul 11/16/2016 Cbc With Differential Ord2 Baxter ABS# 0.5 K/ul 11/16/2016 Cbc With Differential Ord2 Eos ABS# 0.1 K/ul 11/16/2016 Cbc With Differential Ord2 Baso ABS# 0.0 K/ul 11/16/2016 Comp Metabolic Azv813 NA 141 mEq/L 11/16/2016 Comp Metabolic Hll322 K 4.2 mEq/L 11/16/2016 Comp Metabolic Bqf700 CL 106 mEq/L 11/16/2016 Comp Metabolic Qms217 CO2 30.0 mEq/L 11/16/2016 Comp Metabolic Cnm918 AN ION GAP 9 11/16/2016 Comp Metabolic Bnk303 GL UCOSE 118 mg/dL 11/16/2016 Comp Metabolic Gqg808 Cr eat 1.2 mg/dL 11/16/2016 Comp Metabolic Mkh869 eG FR 61 ml/min/1.73m2 11/16 Comp Metabolic Pfv316 BUN 22 mg/dL 11/16/2016 Comp Metabolic Ask594 B/ C Ratio 17.7 Ratio 11/16/2016 Comp Metabolic Kug600 CA LCIUM 9.2 mg/dL 11/16/2016 Comp Metabolic Zwu679 AL K PHOS 91 U/L 11/16/2016 Comp Metabolic Mjh541 T(SGOT) 16 U/L 11/16/2016 Comp Metabolic Zvt100 AL T(SGPT) 16 U/L 11/16/2016 Comp Metabolic Nfe577 BI LI T 0.9 mg/dL 11/16/2016 Comp Metabolic Bhr527 AL BUMIN 4.1 g/dL 11/16/2016 Comp Metabolic Euu457 TP RO 6.4 g/dL 11/16/2016 Comp Metabolic Dor882 GL OB 2.3 g/dL 11/16/2016 Comp Metabolic Qpp952 A/ G Ratio 1.8 Ratio 11/16/2016 Comp Metabolic Grv772 Os mo 286 mOsmo 11/16/2016 Lipid Ord30 [...] 1.8 mg/dL 08/01/2015 B Type Natriuretic Peptide Saj2660 B-UPHOLSTERER APPRENTICE 13.10 pg/ml 08/01/2015 Lipid Ord30 CHOL 188 [...] Ord2 RDW 14.7 % 08/01/2015 Comp Metabolic Gho326 NA 138 mEq/L 08/01/2015 Comp Metabolic Cjr100 K 4.2 mEq/L 08/01/2015 Comp Metabolic Vxi248 CL 104 mEq/L 08/01/2015 Comp Metabolic Zgk947 CO2 27.0 mEq/L 08/01/2015 Comp Metabolic Eba702 AN ION GAP 11 08/01/2015 Comp Metabolic Sog488 GL UCOSE 118 mg/dL 08/01/2015 Comp Metabolic Jki647 Cr eat 1.2 mg/dL 08/01/2015 Comp Metabolic Sgm970 eG FR 66 ml/min/1.73m2 08/01 Comp Metabolic Nuw100 BUN 19 mg/dL 08/01/2015 Comp Metabolic Wty477 B/ C Ratio 16.4 Ratio 08/01/2015 Comp Metabolic Esk422 CA LCIUM 8.7 mg/dL 08/01/2015 Comp Metabolic Xyy289 AL K PHOS 85 U/L 08/01/2015 Comp Metabolic Ulb692 T(SGOT) 16 U/L 08/01/2015 Comp Metabolic Udb779 AL T(SGPT) 20 U/L 08/01/2015 Comp Metabolic Bfu086 BI LI T 0.7 mg/dL 08/01/2015 Comp Metabolic Yux416 AL BUMIN 3.9 g/dL 08/01/2015 Comp Metabolic Rcf290 TP RO 6.2 g/dL 08/01/2015 Comp Metabolic Jmg516 GL OB 2.4 g/dL 08/01/2015 Comp Metabolic Kgm870 A/ G Ratio 1.6 Ratio 08/01/2015 Comp Metabolic Zvd902 Os mo 279 mOsmo 08/01/2015 Tsh Ord6 hTSH II 1.79 uIU/mL 08/01/2015 Sed Rate Ord21 ESR 1 mm/hr 08/01/2015 Tsh Ord6 hTSH II 2.43 uIU/mL 07/07/2015 Folate Ord36 Folate 7.62 ng/mL 07/07/2015 B12 Jzo857 B12 228.00 pg/ml 07/07/2015 Review of Systems [...] Location: face 08/25/2018 on 3 on left baptism, 2 on right baptism and 1 each on dorsum of hands [...] clear 04/24/2018 None Full Exam - General 1995 Ears/Nose/Throat oral cavity/pharynx/larynx Overall: hypopharynx benign 04/24/2018 [...] Location: face 11/04/2017 on 3 on left baptism, 2 on right baptism and 1 each on dorsum of hands [...] CPT-4: J3301 08/25/2018 THER/PROPH/DIAG INJ SC/IM CPT-4: 91004 06/16/2018 TRIAMCINOLONE ACET I [place] NOS CPT-4: J3301 06/16/2018 PPPS, SUBSEQ VISIT CPT- 4: G0439 11/19/2017 DESTRUCT PREMALG LESION CPT-4: 82615 11/04/2017 DESTRUCT PREMALG LES 2-14 CPT-4: 21688 11/04/2017 PPPS, SUBSEQ VISIT CPT- 4: G0439 11/16/2016 THER/PROPH/DIAG INJ SC/IM CPT-4: 74126 07/25/2016 TRIAMCINOLONE ACET I [place] NOS CPT-4: J3301 07/25/2016 Vital Signs Date Vital 08/25/2018 Blood Pressure 1: 128/68 Code: 8480-6 BMI: 39.8 Code: 60005-4 Heart Rate 1: 55 bpm Height: 5'7" SpO2: 97% Weight: 254 lbs 06/16/2018 Blood Pressure 1: 120/67 Code: 8480-6 BMI: 40.1 Code: 96486-9 Heart Rate 1: 83 bpm Height: 5'7" SpO2: 95% Weight: 256 lbs 04/24/2018 Blood Pressure 1: 134/76 Code: 8480-6 BMI: 39.3 Code: 46032-9 Heart Rate 1: 55 bpm Height: 5'7" SpO2: 95% Weight: 251 lbs 11/19/2017 Blood Pressure 1: 130/62 Code: 8480-6 BMI: 38.1 Code: 23134-4 Heart Rate 1: 73 bpm Height: 5'7" SpO2: 93% Waist Measure (cm): 99 cm Weight: 243 lbs 11/04/2017 Blood Pressure 1: 136/68 Code: 8480-6 BMI: 38.2 Code: 80028-4 Heart Rate 1: 61 bpm Height: 5'7" SpO2: 98% Weight: 244 lbs 10/07/2017 Blood Pressure 1: 150/70 Code: 8480-6 BMI: 39.5 Code: 05635-0 Heart Rate 1: 65 bpm Height: 5'7" SpO2: 97% Weight: 252 lbs 06/03/2017 Blood Pressure 1: 140/70 Code: 8480-6 BMI: 37.9 Code: 19266-0 Heart Rate 1: 66 bpm Height: 5'7" SpO2: 96% Weight: 242 lbs 03/19/2017 Blood Pressure 1: 136/82 Code: 8480-6 BMI: 38.8 Code: 56336-6 Heart Rate 1: 58 bpm Height: 5'7" SpO2: 94% Weight: 247 lbs 8 oz 01/21/2017 Blood Pressure 1: 136/74 Code: 8480-6 BMI: 39.1 Code: 59193-1 Heart Rate 1: 58 bpm Height: 5'7" SpO2: 97% Weight: 249 lbs 8 oz 12/04/2016 Blood Pressure 1: 136/72 Code: 8480-6 Heart Rate 1: 55 bpm Height: 5'7" SpO2: 99% Weight: 11/16/2016 Blood Pressure 1: 124/76 Code: 8480-6 BMI: 39.2 Code: 67646-8 Heart Rate 1: 62 bpm Height: 5'7" SpO2: 96% Waist Measure (cm): 104 cm Weight: 250 lbs 11/14/2016 Blood Pressure 1: 152/60 Code: 8480-6 BMI: 39.8 Code: 95204-6 Heart Rate 1: 63 bpm Height: 5'7" SpO2: 94% Weight: 254 lbs 09/17/2016 Blood Pressure 1: 138/70 Code: 8480-6 BMI: 40.3 Code: 88068-1 Heart Rate 1: 60 bpm Height: 5'7" SpO2: 96% Weight: 257 lbs 08/03/2016 Blood Pressure 1: 148/78 Code: 8480-6 BMI: 39.9 Code: 89273-8 Heart Rate 1: 50 bpm Height: 5'7" SpO2: 97% Weight: 255 lbs 07/25/2016 Blood Pressure 1: 130/68 Code: 8480-6 BMI: 39.9 Code: 81681-8 Heart Rate 1: 61 bpm Height: 5'7" SpO2: 95% Weight: 255 lbs 03/22/2016 Blood Pressure 1: 136/76 Code: 8480-6 BMI: 39.0 Code: 09589-4 Heart Rate 1: 60 bpm Height: 5'7" SpO2: 98% Weight: 249 lbs 01/12/2016 Blood Pressure 1: 146/76 Code: 8480-6 BMI: 37.8 Code: 93167-7 Heart Rate 1: 59 bpm Height: 5'7" SpO2: 98% Weight: 241 lbs 8 oz 10/13/2015 Blood Pressure 1: 136/72 Code: 8480-6 BMI: 37.6 Code: 59319-8 Heart Rate 1: 70 bpm Height: 5'7" SpO2: 99% Weight: 240 lbs 09/13/2015 Blood Pressure 1: 140/80 Code: 8480-6 BMI: 37.2 Code: 79388-6 Heart Rate 1: 64 bpm Height: 5'7" SpO2: 97% Weight: 237 lbs 8 oz 07/05/2015 Blood Pressure 1: 130/70 Code: 8480-6 Blood Pressure 1: 170/84 Code: 8480-6 BMI: 35.9 Code: 97312-2 Heart Rate 1: 67 bpm Height: 5'7" [...] in readings 08/25/2018 -Checks occasionally Pertinent Findings kesha becker 08/25/2018 "minimal if any" Pertinent Findings dys [...] Encounters Encounter Performer Loca tion Codes Date ([id number]) 47022 EST. P ATIENT, LEVEL IV Diagnosis: Essential (primary) hypertension[ICD10: I10] Diagnosis: Mixed hyperlipidemia[ICD10: E78.2] Diagnosis: Other allergic rhinitis[ICD10: J30.89] Kathy Espinosa MD, [facility] CPT-4: 06193 08/25/2018 70957 EST. PATIENT, LEVEL III Diagnosis: Other pruritus[ICD10: L29.8] Diagnosis: Allergic contact dermatitis due to plants, except food[ICD10: L23.7] Alba Espinosa MD, [facility] CPT-4: 14598 06/16/2018 ([id number]) 70673 EST. P ATIENT, LEVEL IV Diagnosis: Essential (primary) hypertension[ICD10: I10] Diagnosis: Allergic dermatitis of left upper eyelid[ICD10: H01.114] Diagnosis: Allergic rhinitis due to pollen[ICD10: J30.1] Kathy E[facility]osa MD, [facility] CPT-4: 02758 04/24/2018 ([id number]) 01892 EST. P ATIENT, LEVEL IV Diagnosis: Essential (primary) hypertension[ICD10: I10] Diagnosis: Mixed hyperlipidemia[ICD10: E78.2] Diagnosis: Actinic keratosis[ICD10: L57.0] Kathy Espinosa MD, [facility] CPT-4: 46493 11/04/2017 ([id number]) 34174 EST. P ATIENT, LEVEL IV Diagnosis: Essential (primary) hypertension[ICD10: I10] Diagnosis: Cervicalgia[ICD10: M54.2] Diagnosis: Myalgia[ICD10: M79.1] Kathy Espinosa MD, [facility] CPT-4: 87365 10/07/2017 ([id number]) 34325 EST. P ATIENT, LEVEL IV Diagnosis: Essential (primary) hypertension[ICD10: I10] Diagnosis: Major depressive disorder, recurrent, mild[ICD10: F33.0] Diagnosis: Generalized anxiety disorder[ICD10: F41.1] Kathy Espinosa MD, [facility] CPT-4: 56789 06/03/2017 ([id number]) 65248 EST. P ATIENT, LEVEL IV Diagnosis: Essential (primary) hypertension[ICD10: I10] Diagnosis: Mixed hyperlipidemia[ICD10: E78.2] Diagnosis: Low back pain[ICD10: M54.5] Kathy Espinosa MD, [facility] CPT-4: 23262 03/19/2017 ([id number]) 58033 EST. P ATIENT, LEVEL III Diagnosis: Pain in right lower leg[ICD10: M79.661] Diagnosis: Localized edema[ICD10: R60.0] Diagnosis: Contusion of right lower leg, initial encounter[ICD10: S80.11XA] mAanda Espinosa MD, [facility] CPT-4: 83714 01/21/2017 ([id number]) 00758 EST. P ATIENT, LEVEL IV Diagnosis: Mixed hyperlipidemia[ICD10: E78.2] Diagnosis: Major depressive disorder, recurrent, moderate[ICD10: F33.1] Kathy Espinosa MD, [facility] CPT-4: 80674 12/04/2016 ([id number]) 09182 EST. P ATIENT, LEVEL IV Diagnosis: Mixed hyperlipidemia[ICD10: E78.2] Diagnosis: Major depressive disorder, recurrent, mild[ICD10: F33.0] Diagnosis: Generalized anxiety disorder[ICD10: F41.1] Diagnosis: Essential (primary) hypertension[ICD10: I10] Diagnosis: Chronic obstructive pulmonary disease with (acute) exacerbation[ICD10: J44.1] Kathy Espinosa MD, [facility] CPT-4: 28316 11/14/2016 48123 EST. PATIENT, LEVEL III Diagnosis: Acute laryngopharyngitis[ICD10: J06.0] Diagnosis: Other allergic rhinitis[ICD10: J30.89] Alba Espinosa MD, [facility] CPT-4: 36257 09/17/2016 28432 EST. PATIENT, LEVEL III Diagnosis: Contusion of right lower leg, initial encounter[ICD10: S80.11XA] Alba Espinosa MD, [facility] CPT-4: 78418 08/03/2016 ([id number]) 46853 EST. P ATIENT, LEVEL IV Diagnosis: Essential (primary) hypertension[ICD10: I10] Diagnosis: Mixed hyperlipidemia[ICD10: E78.2] Diagnosis: Acute recurrent maxillary sinusitis[ICD10: J01.01] Diagnosis: Chronic obstructive pulmonary disease with (acute) exacerbation[ICD10: J44.1] Kathy Espinosa MD, [facility] CPT-4: 45464 07/25/2016 ([id number]) 39511 EST. P ATIENT, LEVEL IV Diagnosis: Essential (primary) hypertension[ICD10: I10] Diagnosis: Gastro-esophageal reflux disease without esophagitis[ICD10: K21.9] Diagnosis: Generalized anxiety disorder[ICD10: F41.1] Diagnosis: Major depressive disorder, recurrent, mild[ICD10: F33.0] Kathy [facility], [facility] CPT-4: 69805 03/22/2016 ([id number]) 58000 EST. P ATIENT, LEVEL IV Diagnosis: Essential (primary) hypertension[ICD10: I10] Diagnosis: Coronary angioplasty status[ICD10: Z98.61] Diagnosis: Hyperlipidemia, unspecified[ICD10: E78.5] Diagnosis: Major depressive disorder, recurrent, moderate[ICD10: F33.1] Kathy Espinosa MD, [facility] CPT-4: 88276 01/12/2016 ([id number]) 40411 EST. P ATIENT, LEVEL IV Diagnosis: Essential (primary) hypertension[ICD10: I10] Diagnosis: Gastro-esophageal reflux disease without esophagitis[ICD10: K21.9] Kathy Espinosa MD, [facility] CPT-4: 13913 10/13/2015 ([id number]) 39977 EST. P ATIENT, LEVEL IV Diagnosis: Gastro-esophageal reflux disease without esophagitis[ICD10: K21.9] Diagnosis: Essential (primary) hypertension[ICD10: I10] Diagnosis: Coronary angioplasty status[ICD10: Z98.61] Kathy Espinosa MD, [facility] CPT-4: 71995 09/13/2015 ([id number]) OFFICE VISI T, NEW - LEVEL 4 Diagnosis: Hyperlipidemia, unspecified[ICD10: E78.5] Diagnosis: Personal history of other diseases of the circulatory system[ICD10: Z86.79] Diagnosis: Unspecified osteoarthritis, unspecified site[ICD10: M19.90] Diagnosis: Polyneuropathy, unspecified[ICD10: G62.9] Kathy Espinosa MD, [facility] CPT-4: 59032 07/05/2015 Plan of Care Planned Activity Notes [...] Kenalog injection given today in clinic 08/25/2018 Patient Education: Patient Medication Summary Completed 08/25/2018 Patient Education: Cholesterol Management Completed 08/25/2018 Patient Education: Patient Medication Summary Completed 08/19/2018 Visit Plan: Rash vs Poison Ashley - pt is to use topical treatments as directed. Pt is cleanse clothing in hot water with soap, and call if symptoms do not improve or if they worsen. 06/16/2018 Appointment: Alba Fajardo WPtel: [address] [place], [place] [phone] (15 min) Moderate 06/16/2018 Patient Education: Patient Medication Summary Completed 06/16/2018 Patient Education: Poison Ashley Completed 06/16/2018 Appointment: Amanda Romero WPtel: [phone] [place] (15 min) Moderate 05/23/2018 Appointment: Kathy Espinosa WPtel: [facility]5 [facility] (15 min) Moderate 05/15/2018 Visit Plan: [...] the office 04/24/2018 Appointment: Kathy Espinosa WPtel: [facility] (15 min) Moderate 04/24/2018 Patient Education: Patient Medication Summary Completed 04/24/2018 Appointment: Kathy Espinosa WPtel: [facility] [place] (15 min) Moderate 02/25/2018 Appointment: Kathy Espinosa WPtel: [facility] (15 min) Moderate 02/20/2018 Appointment: Kathy Espinosa WPtel: [address] [place], [place] [phone] [place] (15 min) Moderate 02/13/2018 Patient Education: [...] care surrogate. 11/19/2017 Appointment: Amanda Romero WPtel: [phone] [facility] - Annual Wellness Visit 11/19/2017 [...] - one lesion each hand and on baptism x 3 lesions and 2 lesions right baptism 11/04/2017 Appointment: Kathy Espinosa WPtel: [facility] (15 min) Moderate 11/04/2017 Patient Education: [...] crestor after two weeks. 10/07/2017 Appointment: Kathy Espniosa WPtel: [facility] (15 min) Moderate 10/07/2017 Patient Education: [...] flu shots 06/03/2017 Appointment: Kathy Espinosa WPtel: [facility] (15 min) Moderate 06/03/2017 Patient Education: Patient Medication Summary Completed 06/03/2017 Patient Education: Obesity Completed 06/03/2017 Appointment: Kathy Espinosa WPtel: [facility] (15 min) Moderate 05/22/2017 Visit Plan: [...] back 03/19/2017 Appointment: Kathy Espinosa WPtel: [phone] [facility] [place] (15 min) Moderate 03/19/2017 Patient [...] doppler. 01/21/2017 Appointment: Amanda Romero WPtel[facility] [phone] [id number] [place] (15 min) Moderate 01/21/2017 Patient Education: [...] medications. 12/04/2016 Appointment: Kathy Espinosa WPtel: [phone] [facility] [place] (15 min) Moderate 12/04/2016 Patient [...] care surrogate. 11/16/2016 Appointment: Alba Fajardo WPtel: [phone] [facility] [facility] - Annual Wellness Visit 11/16/2016 [...] concerns. 11/14/2016 Appointment: [id number] (15 min) Moderate 11/14/2016 Patient Education: Patient Medication Summary Completed 11/14/2016 Patient Education: Obesity Completed 11/14/2016 Appointment: Kathy Espinosa WPtel: [phone] [facility] (15 min) Moderate 10/24/2016 Visit Plan: URI [...] pain. 08/03/2016 Appointment: Amanda Romero WPtel: [phone] [phone] (15 min) Moderate 08/03/2016 Patient Education: Patient [...] show improvement. 07/25/2016 Appointment: Francisca Kathy WPtel: [id number] (15 min) Moderate 07/25/2016 Patient Education: Patient [...] No change in current medications. 01/12/2016 Appointment: Francisca Kathy WPtel: [phone] [facility] (15 min) Moderate 01/12/2016 Patient Education: Patient Medication Summary Completed 01/12/2016 Patient Education: Obesity Completed 01/12/2016 Patient Education: Hypertension Completed 01/12/2016 Appointment: Kathy Espinosa WPtel: [phone] [facility] [place] (15 min) Moderate 12/01/2015 Visit Plan: [...] not improving. 10/13/2015 Appointment: Kathy Espinosa WPtel: [facility]9 [facility] (15 min) Moderate 10/13/2015 Patient Education: [...] DAILY 09/13/2015 Appointment: Kathy Espinosa WPtel: [phone] [facility] (15 min) Moderate 09/13/2015 Patient Education: Patient Medication Summary Completed 09/13/2015 Patient Education: Hypertension Completed 09/13/2015 Appointment: Kathy Espinosa WPtel: [phone] [id number] (15 min) Moderate 08/09/2015 Visit Plan: [...] lipitor. 07/05/2015 Appointment: Kathy Espinosa WPtel: [phone] New Patient 07/05/2015 Patient Education: Patient Medication [...] we will send a refer ral to [facility] for physical therapy for your [...] - one lesion each hand and on baptism x 3 lesions and 2 lesions right baptism
--- OUTSIDE RECORDS SUMMARY | 2020-04-12 22:33 | XMS REPORT | CCD ---
Author Author Joaquín Espinosa Organization [facility] Address [address] [place] [address] Phone Care Team Providers Care Director Physical Therapy Name Role Phone PP Unavailable CCM Unavailable Summary Purpose Interface Exchange Insurance Providers Payer name Policy type / Coverage type Covered alliance party ID Effective Begin Date Effective End Date WPS Medicare Part B Medicare Part B [id number] Unknown Cigna Medicare Part B 36 [id number] Unknown Family history Grandfather Diagnosis Age At Onset lung cancer Unknown Runs in the family Diagnosis Age At Onset Cancer Unknown Grandfather Diagnosis Age At Onset Cancer Unknown Social History Social History Element Codes Description Effective Dates Marital status Unknown M arried Nitza 07/05/2015 Number of children Unknown 3 07/05/2015 Employment Unknown Retir ed 07/05/[address]: 3476327 Quit over 10 years ago 07/05/[address]: 835708 Currently drinks alcohol beer 07/05/2015 Allergies, Adverse Reactions, Alerts Substance Reaction Codes Entered Date Inactivated Date Status * NO KNOWN DRUG MEIR RGIES Unknown 07/05/2015 No Inactive Date Active Past Medical History Illness Codes Condition Status Onset Date Resolved Date Essential (primary) hypertension ICD-9: 401.1 ICD-10: I10 Active 07/24/2016 Unknown Impaired fasting glu cose ICD-9: 790.21 ICD-10: R73.01 Active 11/20/2017 Unknown Mixed hyperlipidemia ICD-9: 272.2 ICD-10: E78.2 Active 07/24/2016 Unknown Allergic contact silvia matitis due to [...] hypertension ICD-9: 401.1 ICD-10: I10 07/24/2016 Active Impaired fasting glu cose ICD-9: 790.21 ICD-10: R73.01 11/20/2017 Active Mixed hyperlipidemia ICD-9: 272.2 ICD-10: E78.2 07/24/2016 Active Allergic contact silvia matitis due to [...] pantoprazole 40 mg t ablet,delayed release RxNorm: 293198 TAKE 1 TABLET BY MOUT H TWICE DAILY 06/24/2018 No Stop Date Active betamethasone diprop ionate 0.05 % topical cream RxNorm: 427300 1 Application TOP BID as needed 06/16/2018 No Stop Date Active prednisone 20 mg tablet RxNorm: 866009 2 Tablet(s) PO daily 06/16/2018 06/20/2018 Inactive Kenalog 40 mg/mL jenni pension for injection RxNorm: 2261918 1 Milliliter(s) Inj 06/16/2018 06/16/2018 In active naproxen 500 mg tablet RxNorm: 079991 TAKE 1 TABLET BY MOUTH TWICE DAILY NE EDED FOR PAIN 05/13/2018 No Stop Date Active naproxen 500 mg tablet RxNorm: 988255 TAKE ONE TABLET BY MOUTH TWICE DAILY NEEDED FOR PAIN 01/07/2018 05/12/2018 Inactive escitalopram 20 mg t ablet RxNorm: 428234 TAKE ONE & ONE-HALF T ABLETS BY MOUTH IN THE EVENING 12/16/2017 No Stop Date Active pantoprazole 40 mg t ablet,delayed release RxNorm: 236201 1 Tablet(s) PO BID 11/21/2017 03/20/2018 In active Crestor 10 mg tablet RxNorm: 416313 1 Tablet(s) PO every other day 10/07/2017 06/28/2019 Ac tive naproxen 500 mg tablet RxNorm: 515105 TAKE ONE TABLET BY MOUTH TWICE DAILY NEEDED FOR PAIN 06/27/2017 12/23/2017 Inactive escitalopram 20 mg t ablet RxNorm: 862358 1 Tablet(s) PO QPM 06/03/2017 05/28/2018 Inactive pantoprazole 40 mg t ablet,delayed release RxNorm: 487540 1 Tablet(s) PO BID 03/19/2017 05/07/2017 In active naproxen 500 mg tablet RxNorm: 292365 TAKE ONE TABLET BY MOUTH TWICE DAILY NEEDED FOR PAIN 02/11/2017 06/10/2017 Inactive naproxen 500 mg tablet RxNorm: 231308 TAKE ONE TABLET BY MOUTH TWICE DAILY NEEDED FOR PAIN 12/14/2016 02/10/2017 Inactive escitalopram 20 mg t ablet RxNorm: 501728 1.5 Tablet(s) PO QPM 12/04/2016 06/02/2017 Inactive buspirone 5 mg tablet RxNorm: 680044 1 Tablet(s) PO BID 11/14/2016 12/03/2016 Inactive amoxicillin 500 mg c apsule RxNorm: 031230 1 Capsule(s) PO TID 09/17/2016 09/26/2016 Inactive prednisone 20 mg tablet RxNorm: 180250 2 Tablet(s) PO daily 09/17/2016 09/21/2016 Inactive escitalopram 20 mg t ablet RxNorm: 261563 1 Tablet(s) PO QPM 08/28/2016 12/03/2016 Inactive naproxen 500 mg tablet RxNorm: 061414 TAKE ONE TABLET BY MOUTH TWICE DAILY NEEDED FOR PAIN 08/01/2016 11/28/2016 Inactive sulfamethoxazole 800 mg-trimethoprim 160 mg tablet RxNorm: 781198 1 Tablet(s) PO BID 07/25/2016 07/31/2016 Inactive Kenalog 40 mg/mL jenni pension for injection RxNorm: 0777221 Milliliter(s) Inj 07/25/2016 07/25/2016 In active Symbicort 80 mcg-4.5 mcg/actuation HFA aerosol inhaler RxNorm: 4754184 2 INH QHS 07/25/2016 09/11/2016 In active escitalopram 20 mg t ablet RxNorm: 587384 1 Tablet(s) PO QPM 03/22/2016 08/27/2016 Inactive alprazolam 0.5 mg di sintegrating tablet RxNorm: 016701 1 Tablet(s) PO TID as needed anxiety 03/22/2016 11/13/2016 Inactive atorvastatin 20 mg t ablet RxNorm: 089625 1 Tablet(s) PO daily 01/12/2016 10/06/2017 Inactive Lexapro 10 mg tablet RxNorm: 811624 1 Tablet(s) PO QPM 01/12/2016 03/21/2016 Inactive pantoprazole 40 mg t ablet,delayed release RxNorm: 337564 1 Tablet(s) PO daily 10/13/2015 11/11/2015 In active pantoprazole 40 mg t ablet,delayed release RxNorm: 117117 1 Tablet(s) PO BID 09/13/2015 10/12/2015 In active naproxen 500 mg tablet RxNorm: 347530 Tablet(s) PO BID as needed for pain 07/05/2015 07/31/2016 In active folic acid 400 mcg t ablet RxNorm: 345355 1 Tablet(s) PO daily No Start Date Active Vitamin B12 500 mcg RxNorm: 2000 Microgram(s) PO daily No Start Date Active Toprol XL 50 mg tabl et,extended release RxNorm: 277247 1 Tablet(s) PO daily No Start Date Active Tudorza Pressair 400 mcg/actuation breath activated RxNorm: 3398135 1 INH QAM No Start Date Active aspirin 81 mg capsul e,delayed release RxNorm: 726309 1 Capsule(s) PO daily No Start Date Active Incruse Ellipta 62.5 mcg/actuation powder for inhalation RxNorm: 7260390 1 INH daily No Start Date Active clopidogrel 75 mg ta blet RxNorm: 928949 1 Tablet(s) PO daily No Start Date Active Symbicort 80 mcg-4.5 mcg/actuation HFA aerosol inhaler RxNorm: 7442169 2 INH QHS No Start Date 07/24/2016 Inactive pantoprazole 40 mg t ablet,delayed release RxNorm: 407617 1 Tablet(s) PO daily No Start Date 09/12/2015 Inactive atorvastatin 40 mg t ablet RxNorm: 931574 1 Tablet(s) PO daily No Start Date 01/11/2016 Inactive furosemide 20 mg tablet RxNorm: 685176 1 Tablet(s) PO daily No Start Date 09/11/2016 Inactive naproxen 500 mg tablet RxNorm: 667958 Tablet(s) PO TID No Start Date 07/04/2015 Inactive Medication Administered Medication Codes Instruc tions Start Date Status Kenalog 40 mg/mL suspension for injection RxNorm: 8446015 1Milliliter 06/16/2018 N o longer Active Kenalog 40 mg/mL suspension for injection RxNorm: 5039325 Milliliter 07/25/2016 No longer Active Immunizations Vaccine Codes Date Status Pneumococcal CVX: 33 09/2014 completed Assessments Condition Codes Effectiv e Dates Impaired fasting glucose ICD-10: R73 .01 ICD-9: 790.21 08/19/2018 Essential (primary) hypertension ICD -10: I10 ICD-9: 401.1 08/19/2018 Mixed hyperlipidemia ICD-10: E78.2 ICD-9: 272.2 08/19/2018 Other pruritus ICD-10: L29.8 ICD-9: 698.8 [...] ICD-9: 491.21 11/14/2016 Other allergic rhinitis ICD-10: J30. 89 [...] Visit Reason For Visit Effective Dates Notes rash 06/16/2018 neck pain 04/24/2018 Annual Medicare Wellness Exam 11/19/2017 hypertension 11/04/2017 hypertension 10/07/2017 hypertension 06/03/2017 hypertension 03/19/2017 improved lower leg pain 01/21/2017 hypertension 12/04/2016 Annual Medicare Wellness Exam 11/16/2016 hypertension 11/14/2016 cough 09/17/2016 new lesion 08/03/2016 gastroesophageal reflux 07/25/2016 gastroesophageal reflux 03/22/2016 gastroesophageal reflux 01/12/2016 gastroesophageal reflux 10/13/2015 hyperlipidemia 09/13/2015 hyperlipidemia 07/05/2015 Results Observation Observation Code Item Item Code Result Date %Hba1C Mpw024 % HbA1c 97609-7 5.9 % 11/20/2017 %Hba1C Xtm745 Gluc Ave 123 mg/dL 11/20/2017 B12 Jxd103 B12 1130.00 pg/ml 11/19/2017 Total Psa Ord10 [...] 86.8 fl 11/19/2017 Cbc With Differential Ord2 Dupage% 8.6 % 11/19/2017 Cbc With Differential Ord2 [...] 1.37 K/ul 11/19/2017 Cbc With Differential Ord2 Dupage ABS# 0.4 K/ul 11/19/2017 Cbc With Differential Ord2 Eos ABS# 0.0 K/ul 11/19/2017 Cbc With Differential Ord2 Baso ABS# 0.0 K/ul 11/19/2017 Comp Metabolic Vvz538 NA 142 mEq/L 11/19/2017 Comp Metabolic Qin633 K 4.3 mEq/L 11/19/2017 Comp Metabolic Eso988 CL 104 mEq/L 11/19/2017 Comp Metabolic Uni108 CO2 29.0 mEq/L 11/19/2017 Comp Metabolic Sof321 AN ION GAP 13 11/19/2017 Comp Metabolic Lrb238 GL UCOSE 132 mg/dL 11/19/2017 Comp Metabolic Qln677 Cr eat 1.2 mg/dL 11/19/2017 Comp Metabolic Jox479 eG FR 63 ml/min/1.73m2 11/19 Comp Metabolic Lpp003 BUN 20 mg/dL 11/19/2017 Comp Metabolic Hpu310 B/ C Ratio 16.8 Ratio 11/19/2017 Comp Metabolic Wiw735 CA LCIUM 9.3 mg/dL 11/19/2017 Comp Metabolic Ldo582 AL K PHOS 74 U/L 11/19/2017 Comp Metabolic Rri093 T(SGOT) 15 U/L 11/19/2017 Comp Metabolic Fua729 AL T(SGPT) 15 U/L 11/19/2017 Comp Metabolic Ybe347 BI LI T 0.9 mg/dL 11/19/2017 Comp Metabolic Lev070 AL BUMIN 4.3 g/dL 11/19/2017 Comp Metabolic Jxi097 TP RO 6.6 g/dL 11/19/2017 Comp Metabolic Wdc181 GL OB 2.3 g/dL 11/19/2017 Comp Metabolic Jct740 A/ G Ratio 1.9 Ratio 11/19/2017 Comp Metabolic Vxf928 Os mo 288 mOsmo 11/19/2017 Tsh Ord6 [...] 30.2 pg 11/16/2016 Cbc With Differential Ord2 Dupage% 10.2 % 11/16/2016 Cbc With Differential Ord2 [...] 1.46 K/ul 11/16/2016 Cbc With Differential Ord2 Dupage ABS# 0.5 K/ul 11/16/2016 Cbc With Differential Ord2 Eos ABS# 0.1 K/ul 11/16/2016 Cbc With Differential Ord2 Baso ABS# 0.0 K/ul 11/16/2016 Comp Metabolic Lpc819 NA 141 mEq/L 11/16/2016 Comp Metabolic Kau179 K 4.2 mEq/L 11/16/2016 Comp Metabolic Dlp762 CL 106 mEq/L 11/16/2016 Comp Metabolic Knz348 CO2 30.0 mEq/L 11/16/2016 Comp Metabolic Xjo332 AN ION GAP 9 11/16/2016 Comp Metabolic Exo534 GL UCOSE 118 mg/dL 11/16/2016 Comp Metabolic Alm308 Cr eat 1.2 mg/dL 11/16/2016 Comp Metabolic Miv488 eG FR 61 ml/min/1.73m2 11/16 Comp Metabolic Ytg505 BUN 22 mg/dL 11/16/2016 Comp Metabolic Vod637 B/ C Ratio 17.7 Ratio 11/16/2016 Comp Metabolic Gyq203 CA LCIUM 9.2 mg/dL 11/16/2016 Comp Metabolic Kww292 AL K PHOS 91 U/L 11/16/2016 Comp Metabolic Pie973 T(SGOT) 16 U/L 11/16/2016 Comp Metabolic Pqr494 AL T(SGPT) 16 U/L 11/16/2016 Comp Metabolic Bhs356 BI LI T 0.9 mg/dL 11/16/2016 Comp Metabolic Pnr029 AL BUMIN 4.1 g/dL 11/16/2016 Comp Metabolic Kcd896 TP RO 6.4 g/dL 11/16/2016 Comp Metabolic Vuh560 GL OB 2.3 g/dL 11/16/2016 Comp Metabolic Syt416 A/ G Ratio 1.8 Ratio 11/16/2016 Comp Metabolic Pnu329 Os mo 286 mOsmo 11/16/2016 Lipid Ord30 [...] 1.8 mg/dL 08/01/2015 B Type Natriuretic Peptide Yke0527 B-MACHINE ERECTOR 13.10 pg/ml 08/01/2015 Lipid Ord30 CHOL 188 [...] Ord2 RDW 14.7 % 08/01/2015 Comp Metabolic Pcf969 NA 138 mEq/L 08/01/2015 Comp Metabolic Fpo529 K 4.2 mEq/L 08/01/2015 Comp Metabolic Muf647 CL 104 mEq/L 08/01/2015 Comp Metabolic Gfl666 CO2 27.0 mEq/L 08/01/2015 Comp Metabolic Mut212 AN ION GAP 11 08/01/2015 Comp Metabolic Lsm767 GL UCOSE 118 mg/dL 08/01/2015 Comp Metabolic Djw023 Cr eat 1.2 mg/dL 08/01/2015 Comp Metabolic Fdr814 eG FR 66 ml/min/1.73m2 08/01 Comp Metabolic Svl668 BUN 19 mg/dL 08/01/2015 Comp Metabolic Npj166 B/ C Ratio 16.4 Ratio 08/01/2015 Comp Metabolic Ale135 CA LCIUM 8.7 mg/dL 08/01/2015 Comp Metabolic Pgu467 AL K PHOS 85 U/L 08/01/2015 Comp Metabolic Lqd318 T(SGOT) 16 U/L 08/01/2015 Comp Metabolic Suw164 AL T(SGPT) 20 U/L 08/01/2015 Comp Metabolic Cec754 BI LI T 0.7 mg/dL 08/01/2015 Comp Metabolic Byb880 AL BUMIN 3.9 g/dL 08/01/2015 Comp Metabolic Mqi657 TP RO 6.2 g/dL 08/01/2015 Comp Metabolic Jvh951 GL OB 2.4 g/dL 08/01/2015 Comp Metabolic Kjj344 A/ G Ratio 1.6 Ratio 08/01/2015 Comp Metabolic Ohy825 Os mo 279 mOsmo 08/01/2015 Tsh Ord6 hTSH II 1.79 uIU/mL 08/01/2015 Sed Rate Ord21 ESR 1 mm/hr 08/01/2015 Tsh Ord6 hTSH II 2.43 uIU/mL 07/07/2015 Folate Ord36 Folate 7.62 ng/mL 07/07/2015 B12 Uus187 B12 228.00 pg/ml 07/07/2015 Review of Systems System Result Effective Dates Constitutional No recent illness 06/16/2018 Constitutional No [...] Result Effective Dates Notes Full Exam - Dermatology Constitutional general appearance [...] Location: face 11/04/2017 on 3 on left roman catholic, 2 on right roman catholic and 1 each on dorsum of hands [...] affect 07/05/2015 None Procedures Procedure Codes Date THER/PROPH/DIAG INJ SC/IM CPT-4: 86818 06/16/2018 TRIAMCINOLONE ACET I [place] NOS CPT-4: J3301 06/16/2018 PPPS, SUBSEQ VISIT CPT- 4: G0439 11/19/2017 DESTRUCT PREMALG LESION CPT-4: 40231 11/04/2017 DESTRUCT PREMALG LES 2-14 CPT-4: 72846 11/04/2017 PPPS, SUBSEQ VISIT CPT- 4: G0439 11/16/2016 THER/PROPH/DIAG INJ SC/IM CPT-4: 90628 07/25/2016 TRIAMCINOLONE ACET I [place] NOS CPT-4: J3301 07/25/2016 Vital Signs Date Vital 06/16/2018 Blood Pressure 1: 120/67 Code: 8480-6 BMI: 40.1 Code: 98806-1 Heart Rate 1: 83 bpm Height: 5'7" SpO2: 95% Weight: 256 lbs 04/24/2018 Blood Pressure 1: 134/76 Code: 8480-6 BMI: 39.3 Code: 02701-4 Heart Rate 1: 55 bpm Height: 5'7" SpO2: 95% Weight: 251 lbs 11/19/2017 Blood Pressure 1: 130/62 Code: 8480-6 BMI: 38.1 Code: 18146-3 Heart Rate 1: 73 bpm Height: 5'7" SpO2: 93% Waist Measure (cm): 99 cm Weight: 243 lbs 11/04/2017 Blood Pressure 1: 136/68 Code: 8480-6 BMI: 38.2 Code: 36959-0 Heart Rate 1: 61 bpm Height: 5'7" SpO2: 98% Weight: 244 lbs 10/07/2017 Blood Pressure 1: 150/70 Code: 8480-6 BMI: 39.5 Code: 19194-4 Heart Rate 1: 65 bpm Height: 5'7" SpO2: 97% Weight: 252 lbs 06/03/2017 Blood Pressure 1: 140/70 Code: 8480-6 BMI: 37.9 Code: 45376-5 Heart Rate 1: 66 bpm Height: 5'7" SpO2: 96% Weight: 242 lbs 03/19/2017 Blood Pressure 1: 136/82 Code: 8480-6 BMI: 38.8 Code: 49808-5 Heart Rate 1: 58 bpm Height: 5'7" SpO2: 94% Weight: 247 lbs 8 oz 01/21/2017 Blood Pressure 1: 136/74 Code: 8480-6 BMI: 39.1 Code: 16549-8 Heart Rate 1: 58 bpm Height: 5'7" SpO2: 97% Weight: 249 lbs 8 oz 12/04/2016 Blood Pressure 1: 136/72 Code: 8480-6 Heart Rate 1: 55 bpm Height: 5'7" SpO2: 99% Weight: 11/16/2016 Blood Pressure 1: 124/76 Code: 8480-6 BMI: 39.2 Code: 40039-0 Heart Rate 1: 62 bpm Height: 5'7" SpO2: 96% Waist Measure (cm): 104 cm Weight: 250 lbs 11/14/2016 Blood Pressure 1: 152/60 Code: 8480-6 BMI: 39.8 Code: 61060-4 Heart Rate 1: 63 bpm Height: 5'7" SpO2: 94% Weight: 254 lbs 09/17/2016 Blood Pressure 1: 138/70 Code: 8480-6 BMI: 40.3 Code: 44961-4 Heart Rate 1: 60 bpm Height: 5'7" SpO2: 96% Weight: 257 lbs 08/03/2016 Blood Pressure 1: 148/78 Code: 8480-6 BMI: 39.9 Code: 34666-5 Heart Rate 1: 50 bpm Height: 5'7" SpO2: 97% Weight: 255 lbs 07/25/2016 Blood Pressure 1: 130/68 Code: 8480-6 BMI: 39.9 Code: 22820-1 Heart Rate 1: 61 bpm Height: 5'7" SpO2: 95% Weight: 255 lbs 03/22/2016 Blood Pressure 1: 136/76 Code: 8480-6 BMI: 39.0 Code: 69496-5 Heart Rate 1: 60 bpm Height: 5'7" SpO2: 98% Weight: 249 lbs 01/12/2016 Blood Pressure 1: 146/76 Code: 8480-6 BMI: 37.8 Code: 47602-7 Heart Rate 1: 59 bpm Height: 5'7" SpO2: 98% Weight: 241 lbs 8 oz 10/13/2015 Blood Pressure 1: 136/72 Code: 8480-6 BMI: 37.6 Code: 26316-3 Heart Rate 1: 70 bpm Height: 5'7" SpO2: 99% Weight: 240 lbs 09/13/2015 Blood Pressure 1: 140/80 Code: 8480-6 BMI: 37.2 Code: 01546-7 Heart Rate 1: 64 bpm Height: 5'7" SpO2: 97% Weight: 237 lbs 8 oz 07/05/2015 Blood Pressure 1: 130/70 Code: 8480-6 Blood Pressure 1: 170/84 Code: 8480-6 BMI: 35.9 Code: 46940-8 Heart Rate 1: 67 bpm Height: 5'7" SpO2: 95% Weight: 229 lbs Functional Status No Functional Status data History of Present Illness Symptom Name Status Resu lt Effective Date Notes rash Location-Major on t he upper body [...] 11/16/2016 None Annual Medicare Wellness Exam Jamie velasquze Stress has problems coping 11/16/2016 None Annual [...] Encounters Encounter Performer Loca tion Codes Date EST. PATIENT, LEVEL III Diagnosis: Other pruritus[ICD10: L29.8] Diagnosis: Allergic contact dermatitis due to plants, except food[ICD10: L23.7] Alba Espinosa MD, [facility] CPT-4: 26934 06/16/2018 [id number] EST. P ATIENT, LEVEL IV Diagnosis: Essential (primary) hypertension[ICD10: I10] Diagnosis: Allergic dermatitis of left upper eyelid[ICD10: H01.114] Diagnosis: Allergic rhinitis due to pollen[ICD10: J30.1] Kathy Espinosa MD, [facility] CPT-4: 10835 04/24/2018 [id number] 40452 EST. P ATIENT, LEVEL IV Diagnosis: Essential (primary) hypertension[ICD10: I10] Diagnosis: Mixed hyperlipidemia[ICD10: E78.2] Diagnosis: Actinic keratosis[ICD10: L57.0] [facility] MD, [facility] CPT-4: 01144 11/04/2017 ([id number]) [id number] EST. P ATIENT, LEVEL IV Diagnosis: Essential (primary) hypertension[ICD10: I10] Diagnosis: Cervicalgia[ICD10: M54.2] Diagnosis: Myalgia[ICD10: M79.1] Kathy [facility] MD, [facility] CPT-4: 34279 10/07/2017 ([id number]) 18295 EST. P ATIENT, LEVEL IV Diagnosis: Essential (primary) hypertension[ICD10: I10] Diagnosis: Major depressive disorder, recurrent, mild[ICD10: F33.0] Diagnosis: Generalized anxiety disorder[ICD10: F41.1] Kathy Espinosa MD, [facility] CPT-4: 87381 06/03/2017 ([id number]) 33352 EST. P ATIENT, LEVEL IV Diagnosis: Essential (primary) hypertension[ICD10: I10] Diagnosis: Mixed hyperlipidemia[ICD10: E78.2] Diagnosis: Low back pain[ICD10: M54.5] Kathy E[facility]osa MD, [facility] CPT-4: 22133 03/19/2017 ([id number]) 95878 EST. P ATIENT, LEVEL III Diagnosis: Pain in right lower leg[ICD10: M79.661] Diagnosis: Localized edema[ICD10: R60.0] Diagnosis: Contusion of right lower leg, initial encounter[ICD10: S80.11XA] Amanda Espinosa MD, [facility] CPT-4: 29495 01/21/2017 ([id number]) 53072 EST. P ATIENT, LEVEL IV Diagnosis: Mixed hyperlipidemia[ICD10: E78.2] Diagnosis: Major depressive disorder, recurrent, moderate[ICD10: F33.1] Kathy Espinosa MD, [facility] CPT-4: 83830 12/04/2016 ([id number]) 06085 EST. P ATIENT, LEVEL IV Diagnosis: Mixed hyperlipidemia[ICD10: E78.2] Diagnosis: Major depressive disorder, recurrent, mild[ICD10: F33.0] Diagnosis: Generalized anxiety disorder[ICD10: F41.1] Diagnosis: Essential (primary) hypertension[ICD10: I10] Diagnosis: Chronic obstructive pulmonary disease with (acute) exacerbation[ICD10: J44.1] Kathy Espinosa MD, [facility] CPT-4: 92368 11/14/2016 [id number] EST. PATIENT, LEVEL III Diagnosis: Acute laryngopharyngitis[ICD10: J06.0] Diagnosis: Other allergic rhinitis[ICD10: J30.89] Alba Espinosa MD, [facility] CPT-4: 27598 09/17/2016 [id number] EST. PATIENT, LEVEL III Diagnosis: Contusion of right lower leg, initial encounter[ICD10: S80.11XA] Alba Espinosa MD, [facility] CPT-4: 58581 08/03/2016 ([id number]) 31363 EST. P ATIENT, LEVEL IV Diagnosis: Essential (primary) hypertension[ICD10: I10] Diagnosis: Mixed hyperlipidemia[ICD10: E78.2] Diagnosis: Acute recurrent maxillary sinusitis[ICD10: J01.01] Diagnosis: Chronic obstructive pulmonary disease with (acute) exacerbation[ICD10: J44.1] Kathy Espinosa MD, [facility] CPT-4: 81847 07/25/2016 ([id number]) 70846 EST. P ATIENT, LEVEL IV Diagnosis: Essential (primary) hypertension[ICD10: I10] Diagnosis: Gastro-esophageal reflux disease without esophagitis[ICD10: K21.9] Diagnosis: Generalized anxiety disorder[ICD10: F41.1] Diagnosis: Major depressive disorder, recurrent, mild[ICD10: F33.0] Kathy Espinosa MD, [facility] CPT-4: 15057 03/22/2016 ([id number]) 67615 EST. P ATIENT, LEVEL IV Diagnosis: Essential (primary) hypertension[ICD10: I10] Diagnosis: Coronary angioplasty status[ICD10: Z98.61] Diagnosis: Hyperlipidemia, unspecified[ICD10: E78.5] Diagnosis: Major depressive disorder, recurrent, moderate[ICD10: F33.1] Kathy Espinosa MD, [facility] CPT-4: 65508 01/12/2016 ([id number]) 57452 EST. P ATIENT, LEVEL IV Diagnosis: Essential (primary) hypertension[ICD10: I10] Diagnosis: Gastro-esophageal reflux disease without esophagitis[ICD10: K21.9] Kathy Espinosa MD, [facility] CPT-4: 34595 10/13/2015 ([id number]) 34731 EST. [facility] Diagnosis: Gastro-esophageal reflux disease without esophagitis[ICD10: K21.9] Diagnosis: Essential (primary) hypertension[ICD10: I10] Diagnosis: Coronary angioplasty status[ICD10: Z98.61] Kathy Espinosa MD, [facility] CPT-4: 80604 09/13/2015 ([id number]) OFFICE VISI T, [facility] - LEVEL 4 Diagnosis: Hyperlipidemia, unspecified[ICD10: E78.5] Diagnosis: Personal history of other diseases of the circulatory system[ICD10: Z86.79] Diagnosis: Unspecified osteoarthritis, unspecified site[ICD10: M19.90] Diagnosis: Polyneuropathy, unspecified[ICD10: G62.9] Kathy Espinosa MD, [facility] CPT-4: 63394 07/05/2015 Plan of Care Planned Activity Notes C odes Status Date Patient Education: Patient Medication Summary Completed 08/19/2018 Care Plan: Cbc With Differential Pending 08/19/2018 Care Plan: Comp Metabolic Pending 08/19/2018 Care Plan: Tsh Pending 08/19/2018 Care Plan: Lipid Pending 08/19/2018 Care Plan: %Hba1C LOKARYN C : 86049-9 Pending 08/19/2018 Visit Plan: Rash vs Poison Ashley - pt is to use topical treatments as directed. Pt is cleanse clothing in hot water with soap, and call if symptoms do not improve or if they worsen. 06/16/2018 Appointment: [facility] Fajardo [facility] [phone] [facility] [place] (15 min) Moderate 06/16/2018 Patient Education: Patient Medication Summary Completed 06/16/2018 Patient Education: Poison Ashley Completed 06/16/2018 Appointment: Amanda Romero WPtel: [phone] [place] (15 min) Moderate 05/23/2018 Appointment: Kathy Espinosa WPtel: [facility] (15 min) Moderate 05/15/2018 Visit Plan: Hypertension [...] the office 04/24/2018 Appointment: Kathy Espinosa WPtel: [facility] (15 min) Moderate 04/24/2018 Patient Education: Patient Medication Summary Completed 04/24/2018 Appointment: Kathy Espinosa WPtel: [facility] (15 min) Moderate 02/25/2018 Appointment: Kathy Espinosa WPtel: [facility] [place] (15 min) Moderate 02/20/2018 Appointment: Kathy Espinosa WPtel: [facility] [place] (15 min) Moderate 02/13/2018 Patient [...] surrogate. 11/19/2017 Appointment: Amanda Romero WPtel: [phone] [phone] [facility] - Annual Wellness Visit 11/19/2017 Patient [...] - one lesion each hand and on roman catholic x 3 lesions and 2 lesions right roman catholic 11/04/2017 Appointment: Kathy Espinosa WPtel[facility] [phone] [facility] (15 min) Moderate 11/04/2017 Patient Education: Patient [...] weeks. 10/07/2017 Appointment: Kathy Espinosa WPtel: [phone] [facility] (15 min) Moderate 10/07/2017 Patient Education: [...] shots 06/03/2017 Appointment: Kathy Espinosa WPtel: [phone] [facility] [place] (15 min) Moderate 06/03/2017 Patient Education: Patient Medication Summary Completed 06/03/2017 Patient Education: Obesity Completed 06/03/2017 Appointment: Kathy Espinosa WPtel: [facility] [place] (15 min) Moderate 05/22/2017 Visit Plan: [...] back 03/19/2017 Appointment: Kathy Espinosa WPtel: [phone] [facility] (15 min) Moderate 03/19/2017 Patient Education: Patient [...] venous doppler. 01/21/2017 Appointment: [facility] Romero [facility] [phone] [phone] [place] (15 min) Moderate 01/21/2017 Patient Education: [...] current medications. 12/04/2016 Appointment: Kathy Espinosa WPtel: [phone] [facility] [place] [place] (15 min) Moderate 12/04/2016 Patient Education: [...] care surrogate. 11/16/2016 Appointment: Alba Fajardo WPtel: [facility] [facility] - Annual Wellness Visit 11/16/2016 Patient [...] acute concerns. 11/14/2016 Appointment: Kathy Espinosa WPtel: [facility] [place] (15 min) Moderate 11/14/2016 Patient Education: Patient Medication Summary Completed 11/14/2016 Patient Education: Obesity Completed 11/14/2016 Appointment: Kathy Espinosa WPtel: [phone] [facility] (15 min) Moderate 10/24/2016 Visit Plan: URI [...] or pain. 08/03/2016 Appointment: Amanda Romero WPtel: [phone] (15 min) Moderate 08/03/2016 Patient Education: Patient [...] symptoms do not show improvement. 07/25/2016 Appointment: Luisa Espinosay [facility]Ptel[phone] (15 min) Moderate 07/25/2016 Patient Education: Patient [...] current medications. 01/12/2016 Appointment: Kathy Espinosa WPtel: [phone] (15 min) Moderate 01/12/2016 Patient Education: Patient Medication Summary Completed 01/12/2016 Patient Education: Obesity Completed 01/12/2016 Patient Education: Hypertension Completed 01/12/2016 Appointment: Kathy Espinosa WPtel: [facility] (15 min) Moderate 12/01/2015 Visit [...] not improving. 10/13/2015 Appointment: Kathy Espinosa WPtel: [address] [place], [place] [id number] (15 min) Moderate 10/13/2015 Patient Education: Patient [...] TWICE DAILY 09/13/2015 Appointment: Kathy Espinosa WPtel: [facility] [place] (15 min) Moderate 09/13/2015 Patient Education: Patient Medication Summary Completed 09/13/2015 Patient Education: Hypertension Completed 09/13/2015 Appointment: Kathy Espinosa WPtel: [facility] (15 min) Moderate 08/09/2015 Visit [...] and lipitor. 07/05/2015 Appointment: Kathy Espinosa WPtel: [facility] New Patient 07/05/2015 Patient Education: Patient Medication [...] we will send a refer ral to [facility] for physical therapy for your neck . [...] . Hypertension - well controlled - alexander oneal with current medications, continue with no added [...] - one lesion each hand and on roman catholic x 3 lesions and 2 lesions right roman catholic
--- OUTSIDE RECORDS SUMMARY | 2020-04-12 22:34 | XMS REPORT | CCD ---
Author Author Joaquín Espinosa Organization [facility] Address [address] [place] [address] Phone Care Team Providers Care Banana Carrier Name Role Phone PP Unavailable CCM Unavailable Summary Purpose Interface Exchange Insurance Providers Payer name Policy type / Coverage type Covered green party ID Effective Begin Date Effective End Date WPS Medicare Part B Medicare Part B [id number] Unknown Cigna Medicare Part B 36 [id number] Unknown Family history Grandfather Diagnosis Age At Onset lung cancer Unknown Runs in the family Diagnosis Age At Onset Cancer Unknown Grandfather Diagnosis Age At Onset Cancer Unknown Social History Social History Element Codes Description Effective Dates Marital status Unknown M arried Nitza 07/05/2015 Number of children Unknown 3 07/05/2015 Employment Unknown Retir ed 07/05/[address]: 3295243 Quit over 10 years ago 07/05/[address]: 101750 Currently drinks alcohol beer 07/05/2015 Allergies, Adverse Reactions, Alerts Substance Reaction Codes Entered Date Inactivated Date Status * NO KNOWN DRUG MEIR RGIES Unknown 07/05/2015 No Inactive Date Active Past Medical History Illness Codes Condition Status Onset Date Resolved Date Allergic dermatitis of left upper eyelid ICD-9: 373.32 ICD-10: H01.114 Active 04/24/2018 Unknown Allergic rhinitis du e to pollen ICD-9: 477.9 ICD-10: J30.1 Active 04/24/2018 Unknown Essential (primary) hypertension ICD-9: 401.1 ICD-10: I10 Active 07/24/2016 Unknown Impaired fasting glu cose ICD-9: 790.21 ICD-10: R73.01 Active 11/20/2017 Unknown Encounter for genera l adult medical examination without abnormal findings ICD-9: V70.9 ICD-10: Z00.00 Active 11/16/2016 Unknown Mixed hyperlipidemia ICD-9: 272.2 ICD-10: E78.2 Active 07/24/2016 Unknown Actinic keratosis ICD-9: 702.0 ICD-10: L57.0 [...] Condition Codes Effectiv e Dates Condition Status Allergic dermatitis of left upper eyelid ICD-9: 373.32 ICD-10: H01.114 04/24/2018 Active Allergic rhinitis du e to pollen ICD-9: 477.9 ICD-10: J30.1 04/24/2018 Active Essential (primary) hypertension ICD-9: 401.1 ICD-10: I10 07/24/2016 Active Impaired fasting glu cose ICD-9: 790.21 ICD-10: R73.01 11/20/2017 Active Encounter for genera l adult medical examination without abnormal findings ICD-9: V70.9 ICD-10: Z00.00 11/16/2016 Active Mixed hyperlipidemia ICD-9: 272.2 ICD-10: E78.2 07/24/2016 Active Actinic keratosis ICD-9: 702.0 ICD-10: L57.0 [...] Fill Instructions naproxen 500 mg tablet RxNorm: 024121 TAKE ONE TABLET BY MOUTH TWICE DAILY NEEDED FOR PAIN 01/07/2018 No Stop Date Active escitalopram 20 mg t ablet RxNorm: 872055 TAKE ONE & ONE-HALF T ABLETS BY MOUTH IN THE EVENING 12/16/2017 No Stop Date Active pantoprazole 40 mg t ablet,delayed release RxNorm: 126501 1 Tablet(s) PO BID 11/21/2017 03/20/2018 In active Crestor 10 mg tablet RxNorm: 760468 1 Tablet(s) PO every other day 10/07/2017 06/28/2019 Ac tive naproxen 500 mg tablet RxNorm: 003194 TAKE ONE TABLET BY MOUTH TWICE DAILY NEEDED FOR PAIN 06/27/2017 12/23/2017 Inactive escitalopram 20 mg t ablet RxNorm: 340990 1 Tablet(s) PO QPM 06/03/2017 05/28/2018 Active pantoprazole 40 mg t ablet,delayed release RxNorm: 417739 1 Tablet(s) PO BID 03/19/2017 05/07/2017 In active naproxen 500 mg tablet RxNorm: 940891 TAKE ONE TABLET BY MOUTH TWICE DAILY NEEDED FOR PAIN 02/11/2017 06/10/2017 Inactive naproxen 500 mg tablet RxNorm: 498308 TAKE ONE TABLET BY MOUTH TWICE DAILY NEEDED FOR PAIN 12/14/2016 02/10/2017 Inactive escitalopram 20 mg t ablet RxNorm: 177245 1.5 Tablet(s) PO QPM 12/04/2016 06/02/2017 Inactive buspirone 5 mg tablet RxNorm: 875318 1 Tablet(s) PO BID 11/14/2016 12/03/2016 Inactive amoxicillin 500 mg c apsule RxNorm: 122996 1 Capsule(s) PO TID 09/17/2016 09/26/2016 Inactive prednisone 20 mg tablet RxNorm: 735560 2 Tablet(s) PO daily 09/17/2016 09/21/2016 Inactive escitalopram 20 mg t ablet RxNorm: 151488 1 Tablet(s) PO QPM 08/28/2016 12/03/2016 Inactive naproxen 500 mg tablet RxNorm: 964885 TAKE ONE TABLET BY MOUTH TWICE DAILY NEEDED FOR PAIN 08/01/2016 11/28/2016 Inactive sulfamethoxazole 800 mg-trimethoprim 160 mg tablet RxNorm: 380451 1 Tablet(s) PO BID 07/25/2016 07/31/2016 Inactive Kenalog 40 mg/mL jenni pension for injection RxNorm: 1691690 Milliliter(s) Inj 07/25/2016 07/25/2016 In active Symbicort 80 mcg-4.5 mcg/actuation HFA aerosol inhaler RxNorm: 1208081 2 INH QHS 07/25/2016 09/11/2016 In active escitalopram 20 mg t ablet RxNorm: 003409 1 Tablet(s) PO QPM 03/22/2016 08/27/2016 Inactive alprazolam 0.5 mg di sintegrating tablet RxNorm: 707653 1 Tablet(s) PO TID as needed anxiety 03/22/2016 11/13/2016 Inactive atorvastatin 20 mg t ablet RxNorm: 164731 1 Tablet(s) PO daily 01/12/2016 10/06/2017 Inactive Lexapro 10 mg tablet RxNorm: 864428 1 Tablet(s) PO QPM 01/12/2016 03/21/2016 Inactive pantoprazole 40 mg t ablet,delayed release RxNorm: 379550 1 Tablet(s) PO daily 10/13/2015 11/11/2015 In active pantoprazole 40 mg t ablet,delayed release RxNorm: 394335 1 Tablet(s) PO BID 09/13/2015 10/12/2015 In active naproxen 500 mg tablet RxNorm: 935971 Tablet(s) PO BID as needed for pain 07/05/2015 07/31/2016 In active folic acid 400 mcg t ablet RxNorm: 505717 1 Tablet(s) PO daily No Start Date Active Vitamin B12 500 mcg RxNorm: 2000 Microgram(s) PO daily No Start Date Active Tudorza Pressair 400 mcg/actuation breath activated RxNorm: 8416760 1 INH QAM No Start Date Active aspirin 81 mg capsul e,delayed release RxNorm: 646484 1 Capsule(s) PO daily No Start Date Active Incruse Ellipta 62.5 mcg/actuation powder for inhalation RxNorm: 1533773 1 INH daily No Start Date Active clopidogrel 75 mg ta blet RxNorm: 627508 1 Tablet(s) PO daily No Start Date Active Symbicort 80 mcg-4.5 mcg/actuation HFA aerosol inhaler RxNorm: 7859171 2 INH QHS No Start Date 07/24/2016 Inactive pantoprazole 40 mg t ablet,delayed release RxNorm: 284257 1 Tablet(s) PO daily No Start Date 09/12/2015 Inactive atorvastatin 40 mg t ablet RxNorm: 661036 1 Tablet(s) PO daily No Start Date 01/11/2016 Inactive furosemide 20 mg tablet RxNorm: 752450 1 Tablet(s) PO daily No Start Date 09/11/2016 Inactive naproxen 500 mg tablet RxNorm: 222898 Tablet(s) PO TID No Start Date 07/04/2015 Inactive Medication Administered Medication Codes Instruc tions Start Date Status Kenalog 40 mg/mL suspension for injection RxNorm: 6189124 Milliliter 07/25/2016 No longer Active Immunizations Vaccine Codes Date Status Pneumococcal CVX: 33 09/2014 completed Assessments Condition Codes Effectiv e Dates Allergic rhinitis due to pollen ICD- 10: J30.1 ICD-9: 477.9 04/24/2018 Essential (primary) hypertension ICD -10: I10 ICD-9: 401.1 04/24/2018 Allergic dermatitis of left upper eyelid ICD-10: H01.114 ICD-9: 373.32 04/24/2018 Impaired fasting glucose ICD-10: R73 .01 ICD-9: 790.21 11/20/2017 Encounter for general adult medical exam ination without abnormal findings ICD-10: Z00.00 ICD-9: V70.9 11/19/2017 Mixed hyperlipidemia ICD-10: E78.2 ICD-9: 272.2 11/04/2017 Actinic keratosis ICD-10: L57.0 ICD-9: 702.0 11/04/2017 [...] Visit Reason For Visit Effective Dates Notes neck pain 04/24/2018 Annual Medicare Wellness Exam 11/19/2017 hypertension 11/04/2017 hypertension 10/07/2017 hypertension 06/03/2017 hypertension 03/19/2017 improved lower leg pain 01/21/2017 hypertension 12/04/2016 Annual Medicare Wellness Exam 11/16/2016 hypertension 11/14/2016 cough 09/17/2016 new lesion 08/03/2016 gastroesophageal reflux 07/25/2016 gastroesophageal reflux 03/22/2016 gastroesophageal reflux 01/12/2016 gastroesophageal reflux 10/13/2015 hyperlipidemia 09/13/2015 hyperlipidemia 07/05/2015 Results Observation Observation Code Item Item Code Result Date %Hba1C Wpo738 % HbA1c 26348-3 5.9 % 11/20/2017 %Hba1C Qvl243 Gluc Ave 123 mg/dL 11/20/2017 B12 Vzj761 B12 1130.00 pg/ml 11/19/2017 Total Psa Ord10 [...] 86.8 fl 11/19/2017 Cbc With Differential Ord2 [place]% 8.6 % 11/19/2017 Cbc With Differential Ord2 MCH 29.2 pg 11/19/2017 Cbc With Differential Ord2 Eos% 0.8 % 11/19/2017 Cbc With Differential Ord2 MCHC 33.6 pg 11/19/2017 Cbc With Differential Ord2 Baso% 0.4 % 11/19/2017 Cbc With Differential Ord2 PLT 159 K/ul 11/19/2017 Cbc With Differential Ord2 Neut ABS# 3.06 K/ul 11/19/2017 Cbc With Differential Ord2 RDW 13.3 % 11/19/2017 Cbc With Differential Ord2 Lymph ABS# 1.37 K/ul 11/19/2017 Cbc With Differential Ord2 [place] ABS# 0.4 K/ul 11/19/2017 Cbc With Differential Ord2 Eos ABS# 0.0 K/ul 11/19/2017 Cbc With Differential Ord2 Baso ABS# 0.0 K/ul 11/19/2017 Comp Metabolic Pzj688 NA 142 mEq/L 11/19/2017 Comp Metabolic Twq300 K 4.3 mEq/L 11/19/2017 Comp Metabolic Kqd078 CL 104 mEq/L 11/19/2017 Comp Metabolic Aua258 CO2 29.0 mEq/L 11/19/2017 Comp Metabolic Ehk954 AN ION GAP 13 11/19/2017 Comp Metabolic Uep125 GL UCOSE 132 mg/dL 11/19/2017 Comp Metabolic Ymb515 Cr eat 1.2 mg/dL 11/19/2017 Comp Metabolic Vxt299 eG FR 63 ml/min/1.73m2 11/19 Comp Metabolic Ysh092 BUN 20 mg/dL 11/19/2017 Comp Metabolic Its522 B/ C Ratio 16.8 Ratio 11/19/2017 Comp Metabolic Egc081 CA LCIUM 9.3 mg/dL 11/19/2017 Comp Metabolic Wdw821 AL K PHOS 74 U/L 11/19/2017 Comp Metabolic Bam477 T(SGOT) 15 U/L 11/19/2017 Comp Metabolic Kgg496 AL T(SGPT) 15 U/L 11/19/2017 Comp Metabolic Hkf811 BI LI T 0.9 mg/dL 11/19/2017 Comp Metabolic Cqt216 AL BUMIN 4.3 g/dL 11/19/2017 Comp Metabolic Xif997 TP RO 6.6 g/dL 11/19/2017 Comp Metabolic Kav840 GL OB 2.3 g/dL 11/19/2017 Comp Metabolic Zov177 A/ G Ratio 1.9 Ratio 11/19/2017 Comp Metabolic Flj955 Os mo 288 mOsmo 11/19/2017 Tsh Ord6 [...] 89.9 fl 11/16/2016 Cbc With Differential Ord2 [place]% 10.2 % 11/16/2016 Cbc With Differential Ord2 [...] 1.46 K/ul 11/16/2016 Cbc With Differential Ord2 [place] ABS# 0.5 K/ul 11/16/2016 Cbc With Differential Ord2 Eos ABS# 0.1 K/ul 11/16/2016 Cbc With Differential Ord2 Baso ABS# 0.0 K/ul 11/16/2016 Comp Metabolic Coz121 NA 141 mEq/L 11/16/2016 Comp Metabolic Xii267 K 4.2 mEq/L 11/16/2016 Comp Metabolic Pkg948 CL 106 mEq/L 11/16/2016 Comp Metabolic Lqv666 CO2 30.0 mEq/L 11/16/2016 Comp Metabolic Ekc858 AN ION GAP 9 11/16/2016 Comp Metabolic Psy473 GL UCOSE 118 mg/dL 11/16/2016 Comp Metabolic Ult010 Cr eat 1.2 mg/dL 11/16/2016 Comp Metabolic Eew407 eG FR 61 ml/min/1.73m2 11/16 Comp Metabolic Hay890 BUN 22 mg/dL 11/16/2016 Comp Metabolic Zlq683 B/ C Ratio 17.7 Ratio 11/16/2016 Comp Metabolic Pga537 CA LCIUM 9.2 mg/dL 11/16/2016 Comp Metabolic Nhn237 AL K PHOS 91 U/L 11/16/2016 Comp Metabolic Yyr027 T(SGOT) 16 U/L 11/16/2016 Comp Metabolic Sid245 AL T(SGPT) 16 U/L 11/16/2016 Comp Metabolic Fjq406 BI LI T 0.9 mg/dL 11/16/2016 Comp Metabolic Jyx040 AL BUMIN 4.1 g/dL 11/16/2016 Comp Metabolic Gvl860 TP RO 6.4 g/dL 11/16/2016 Comp Metabolic Obm536 GL OB 2.3 g/dL 11/16/2016 Comp Metabolic Qsg672 A/ G Ratio 1.8 Ratio 11/16/2016 Comp Metabolic Wup659 Os mo 286 mOsmo 11/16/2016 Lipid Ord30 [...] Ord90 Mag 1.8 mg/dL 08/01/2015 Comp Metabolic Aqv633 NA 138 mEq/L 08/01/2015 Comp Metabolic Yuv606 K 4.2 mEq/L 08/01/2015 Comp Metabolic She896 CL 104 mEq/L 08/01/2015 Comp Metabolic Hhd511 CO2 27.0 mEq/L 08/01/2015 Comp Metabolic Amq093 AN ION GAP 11 08/01/2015 Comp Metabolic Avr648 GL UCOSE 118 mg/dL 08/01/2015 Comp Metabolic Dxz394 Cr eat 1.2 mg/dL 08/01/2015 Comp Metabolic Voe991 eG FR 66 ml/min/1.73m2 08/01 Comp Metabolic Cnh485 BUN 19 mg/dL 08/01/2015 Comp Metabolic Kkb732 B/ C Ratio 16.4 Ratio 08/01/2015 Comp Metabolic Trf477 CA LCIUM 8.7 mg/dL 08/01/2015 Comp Metabolic Vjn266 AL K PHOS 85 U/L 08/01/2015 Comp Metabolic Kyg472 T(SGOT) 16 U/L 08/01/2015 Comp Metabolic Col056 AL T(SGPT) 20 U/L 08/01/2015 Comp Metabolic Chf913 BI LI T 0.7 mg/dL 08/01/2015 Comp Metabolic Nbr608 AL BUMIN 3.9 g/dL 08/01/2015 Comp Metabolic Wfc377 TP RO 6.2 g/dL 08/01/2015 Comp Metabolic Zoi266 GL OB 2.4 g/dL 08/01/2015 Comp Metabolic Vao739 A/ G Ratio 1.6 Ratio 08/01/2015 Comp Metabolic Rqn890 Os mo 279 mOsmo 08/01/2015 Cbc With [...] 4.8 Ratio 08/01/2015 B Type Natriuretic Peptide Jvc8478 B-SHIPPING PACKER 13.10 pg/ml 08/01/2015 Tsh Ord6 hTSH II 1.79 uIU/mL 08/01/2015 Sed Rate Ord21 ESR 1 mm/hr 08/01/2015 Tsh Ord6 hTSH II 2.43 uIU/mL 07/07/2015 Folate Ord36 Folate 7.62 ng/mL 07/07/2015 B12 Gtd810 B12 228.00 pg/ml 07/07/2015 Review of Systems System Result Effective Dates Constitutional No recent illness 04/24/2018 Constitutional No [...] Location: face 11/04/2017 on 3 on left caodaism, 2 on right caodaism and 1 each on dorsum of hands [...] Procedures Procedure Codes Date PPPS, SUBSEQ VISIT CPT- 4: G0439 11/19/2017 DESTRUCT PREMALG LESION CPT-4: 71317 11/04/2017 DESTRUCT PREMALG LES 2-14 CPT-4: 62571 11/04/2017 PPPS, SUBSEQ VISIT CPT- 4: G0439 11/16/2016 THER/PROPH/DIAG INJ SC/IM CPT-4: 76135 07/25/2016 TRIAMCINOLONE ACET I [place] NOS CPT-4: J3301 07/25/2016 Vital Signs Date Vital 04/24/2018 Blood Pressure 1: 134/76 Code: 8480-6 BMI: 39.3 Code: 69114-2 Heart Rate 1: 55 bpm Height: 5'7" SpO2: 95% Weight: 251 lbs 11/19/2017 Blood Pressure 1: 130/62 Code: 8480-6 BMI: 38.1 Code: 22395-6 Heart Rate 1: 73 bpm Height: 5'7" SpO2: 93% Waist Measure (cm): 99 cm Weight: 243 lbs 11/04/2017 Blood Pressure 1: 136/68 Code: 8480-6 BMI: 38.2 Code: 04527-6 Heart Rate 1: 61 bpm Height: 5'7" SpO2: 98% Weight: 244 lbs 10/07/2017 Blood Pressure 1: 150/70 Code: 8480-6 BMI: 39.5 Code: 93936-7 Heart Rate 1: 65 bpm Height: 5'7" SpO2: 97% Weight: 252 lbs 06/03/2017 Blood Pressure 1: 140/70 Code: 8480-6 BMI: 37.9 Code: 52183-8 Heart Rate 1: 66 bpm Height: 5'7" SpO2: 96% Weight: 242 lbs 03/19/2017 Blood Pressure 1: 136/82 Code: 8480-6 BMI: 38.8 Code: 86674-1 Heart Rate 1: 58 bpm Height: 5'7" SpO2: 94% Weight: 247 lbs 8 oz 01/21/2017 Blood Pressure 1: 136/74 Code: 8480-6 BMI: 39.1 Code: 45495-8 Heart Rate 1: 58 bpm Height: 5'7" SpO2: 97% Weight: 249 lbs 8 oz 12/04/2016 Blood Pressure 1: 136/72 Code: 8480-6 Heart Rate 1: 55 bpm Height: 5'7" SpO2: 99% Weight: 11/16/2016 Blood Pressure 1: 124/76 Code: 8480-6 BMI: 39.2 Code: 66496-0 Heart Rate 1: 62 bpm Height: 5'7" SpO2: 96% Waist Measure (cm): 104 cm Weight: 250 lbs 11/14/2016 Blood Pressure 1: 152/60 Code: 8480-6 BMI: 39.8 Code: 16979-3 Heart Rate 1: 63 bpm Height: 5'7" SpO2: 94% Weight: 254 lbs 09/17/2016 Blood Pressure 1: 138/70 Code: 8480-6 BMI: 40.3 Code: 76903-9 Heart Rate 1: 60 bpm Height: 5'7" SpO2: 96% Weight: 257 lbs 08/03/2016 Blood Pressure 1: 148/78 Code: 8480-6 BMI: 39.9 Code: 69293-6 Heart Rate 1: 50 bpm Height: 5'7" SpO2: 97% Weight: 255 lbs 07/25/2016 Blood Pressure 1: 130/68 Code: 8480-6 BMI: 39.9 Code: 78605-9 Heart Rate 1: 61 bpm Height: 5'7" SpO2: 95% Weight: 255 lbs 03/22/2016 Blood Pressure 1: 136/76 Code: 8480-6 BMI: 39.0 Code: 45648-9 Heart Rate 1: 60 bpm Height: 5'7" SpO2: 98% Weight: 249 lbs 01/12/2016 Blood Pressure 1: 146/76 Code: 8480-6 BMI: 37.8 Code: 12574-5 Heart Rate 1: 59 bpm Height: 5'7" SpO2: 98% Weight: 241 lbs 8 oz 10/13/2015 Blood Pressure 1: 136/72 Code: 8480-6 BMI: 37.6 Code: 23353-7 Heart Rate 1: 70 bpm Height: 5'7" SpO2: 99% Weight: 240 lbs 09/13/2015 Blood Pressure 1: 140/80 Code: 8480-6 BMI: 37.2 Code: 18929-9 Heart Rate 1: 64 bpm Height: 5'7" SpO2: 97% Weight: 237 lbs 8 oz 07/05/2015 Blood Pressure 1: 130/70 Code: 8480-6 Blood Pressure 1: 170/84 Code: 8480-6 BMI: 35.9 Code: 73101-0 Heart Rate 1: 67 bpm Height: 5'7" SpO2: 95% Weight: 229 lbs Functional Status No Functional Status data History of Present Illness Symptom Name Status Resu lt Effective Date Notes neck pain Location in th e cervical [...] Encounters Encounter Performer Loca tion Codes Date ([id number]) 22094 EST. P ATIENT, LEVEL IV Diagnosis: Essential (primary) hypertension[ICD10: I10] Diagnosis: Allergic dermatitis of left upper eyelid[ICD10: H01.114] Diagnosis: Allergic rhinitis due to pollen[ICD10: J30.1] [facility] MD, [facility] CPT-4: 13394 04/24/2018 ([id number]) 75379 EST. P ATIENT, LEVEL IV Diagnosis: Essential (primary) hypertension[ICD10: I10] Diagnosis: Mixed hyperlipidemia[ICD10: E78.2] Diagnosis: Actinic keratosis[ICD10: L57.0] Kathy [facility]spinosa MD, [facility] CPT-4: 08807 11/04/2017 ([id number]) 61152 EST. P ATIENT, LEVEL IV Diagnosis: Essential (primary) hypertension[ICD10: I10] Diagnosis: Cervicalgia[ICD10: M54.2] Diagnosis: Myalgia[ICD10: M79.1] Kathy [facility] MD, [facility] CPT-4: 00178 10/07/2017 ([id number]) 88190 EST. P ATIENT, LEVEL IV Diagnosis: Essential (primary) hypertension[ICD10: I10] Diagnosis: Major depressive disorder, recurrent, mild[ICD10: F33.0] Diagnosis: Generalized anxiety disorder[ICD10: F41.1] [facility] CPT-4: 66478 06/03/2017 ([id number]) 00455 EST. P ATIENT, LEVEL IV Diagnosis: Essential (primary) hypertension[ICD10: I10] Diagnosis: Mixed hyperlipidemia[ICD10: E78.2] Diagnosis: Low back pain[ICD10: M54.5] Kathy E[facility]osa MD, [facility] CPT-4: 66148 03/19/2017 ([id number]) 26931 EST. P ATIENT, LEVEL III Diagnosis: Pain in right lower leg[ICD10: M79.661] Diagnosis: Localized edema[ICD10: R60.0] Diagnosis: Contusion of right lower leg, initial encounter[ICD10: S80.11XA] Amanda Espinosa MD, [facility] CPT-4: 44206 01/21/2017 ([id number]) 63534 EST. P ATIENT, LEVEL IV Diagnosis: Mixed hyperlipidemia[ICD10: E78.2] Diagnosis: Major depressive disorder, recurrent, moderate[ICD10: F33.1] Kathy E[facility]osa MD, [facility] CPT-4: 68625 12/04/2016 ([id number]) 58126 EST. P ATIENT, LEVEL IV Diagnosis: Mixed hyperlipidemia[ICD10: E78.2] Diagnosis: Major depressive disorder, recurrent, mild[ICD10: F33.0] Diagnosis: Generalized anxiety disorder[ICD10: F41.1] Diagnosis: Essential (primary) hypertension[ICD10: I10] Diagnosis: Chronic obstructive pulmonary disease with (acute) exacerbation[ICD10: J44.1] Kathy Espinosa MD, [facility] CPT-4: 15516 11/14/2016 44784 EST. PATIENT, LEVEL III Diagnosis: Acute laryngopharyngitis[ICD10: J06.0] Diagnosis: Other allergic rhinitis[ICD10: J30.89] Alba Espinosa MD, [facility] CPT-4: 52640 09/17/2016 [id number] EST. PATIENT, LEVEL III Diagnosis: Contusion of right lower leg, initial encounter[ICD10: S80.11XA] Alba Espinosa MD, [facility] CPT-4: 89122 08/03/2016 ([id number]) 59615 EST. P ATIENT, LEVEL IV Diagnosis: Essential (primary) hypertension[ICD10: I10] Diagnosis: Mixed hyperlipidemia[ICD10: E78.2] Diagnosis: Acute recurrent maxillary sinusitis[ICD10: J01.01] Diagnosis: Chronic obstructive pulmonary disease with (acute) exacerbation[ICD10: J44.1] Kathy E[facility]osa MD, [facility] CPT-4: 36592 07/25/2016 ([id number]) 32911 EST. P ATIENT, LEVEL IV Diagnosis: Essential (primary) hypertension[ICD10: I10] Diagnosis: Gastro-esophageal reflux disease without esophagitis[ICD10: K21.9] Diagnosis: Generalized anxiety disorder[ICD10: F41.1] Diagnosis: Major depressive disorder, recurrent, mild[ICD10: F33.0] [facility] CPT-4: 98761 03/22/2016 ([id number]) 98698 EST. P ATIENT, LEVEL IV Diagnosis: Essential (primary) hypertension[ICD10: I10] Diagnosis: Coronary angioplasty status[ICD10: Z98.61] Diagnosis: Hyperlipidemia, unspecified[ICD10: E78.5] Diagnosis: Major depressive disorder, recurrent, moderate[ICD10: F33.1] Kathy Espinosa MD, [facility] CPT-4: 55865 01/12/2016 ([id number]) 94892 EST. P ATIENT, LEVEL IV Diagnosis: Essential (primary) hypertension[ICD10: I10] Diagnosis: Gastro-esophageal reflux disease without esophagitis[ICD10: K21.9] Kathy Espinosa MD, [facility] CPT-4: 77017 10/13/2015 ([id number]) 40161 EST. P ATIENT, LEVEL IV Diagnosis: Gastro-esophageal reflux disease without esophagitis[ICD10: K21.9] Diagnosis: Essential (primary) hypertension[ICD10: I10] Diagnosis: Coronary angioplasty status[ICD10: Z98.61] Kathy Espinosa MD, C CPT-4: 48482 09/13/2015 ([id number]) OFFICE VISI T, [facility] - LEVEL 4 Diagnosis: Hyperlipidemia, unspecified[ICD10: E78.5] Diagnosis: Personal history of other diseases of the circulatory system[ICD10: Z86.79] Diagnosis: Unspecified osteoarthritis, unspecified site[ICD10: M19.90] Diagnosis: Polyneuropathy, unspecified[ICD10: G62.9] [facility], [facility] CPT-4: 67047 07/05/2015 Plan of Care Planned Activity Notes C odes Status Date Visit Plan: Hypertension - well michelle akins [...] acutely worsens - call the office 04/24/2018 Patient Education: Patient Medication Summary Completed 04/24/2018 Appointment: [facility] [phone] [facility] (15 min) Moderate 02/25/2018 Appointment: [facility] [phone] [facility] (15 min) Moderate 02/20/2018 Appointment: [facility] [phone] [facility] (15 min) Moderate 02/13/2018 Patient Education: Patient [...] care surrogate. 11/19/2017 [phone] [phone] [facility] - Annual Wellness Visit 11/19/2017 Patient [...] - one lesion each hand and on caodaism x 3 lesions and 2 lesions right caodaism 11/04/2017 Appointment: [facility] [phone] [facility] (15 min) Moderate 11/04/2017 Patient Education: Patient [...] weeks. 10/07/2017 Appointment: Kathy Espinosa WPtel: [phone] [facility] (15 min) Moderate 10/07/2017 Patient Education: [...] shots 06/03/2017 Appointment: Kathy Espinosa WPtel: [phone] [facility] (15 min) Moderate 06/03/2017 Patient Education: Patient Medication Summary Completed 06/03/2017 Patient Education: Obesity Completed 06/03/2017 Appointment: Kathy Espinosa WPtel: [phone] [facility] (15 min) Moderate 05/22/2017 Visit Plan: Hypertension [...] back 03/19/2017 Appointment: Kathy Espinosa WPtel: [phone] [facility] [place] (15 min) Moderate 03/19/2017 Patient Education: [...] doppler. 01/21/2017 Appointment: [phone] [phone] [place] (15 min) Moderate 01/21/2017 [...] current medications. 12/04/2016 Appointment: [facility] [phone] [facility] [place] (15 min) Moderate 12/04/2016 Patient Education: [...] care surrogate. 11/16/2016 Appointment: Alba Fajardo WPtel: [facility] [facility] - Annual Wellness Visit 11/16/2016 Patient [...] acute concerns. 11/14/2016 Appointment: Kathy Espinosa WPtel: [facility] (15 min) Moderate 11/14/2016 Patient Education: Patient Medication Summary Completed 11/14/2016 Patient Education: Obesity Completed 11/14/2016 Appointment: Kathy Espinosa WPtel: [facility] (15 min) Moderate 10/24/2016 Visit Plan: URI [...] pain. 08/03/2016 Appointment: Amanda Romero WPtel: [phone] [phone] (15 min) Moderate 08/03/2016 Patient Education: [...] improvement. 07/25/2016 Appointment: Kathy E[facility]osa [facility] [phone] [facility] (15 min) Moderate 07/25/2016 Patient Education: Patient [...] medications. 01/12/2016 Appointment: [facility] [phone] [facility] (15 min) Moderate 01/12/2016 Patient Education: Patient Medication Summary Completed 01/12/2016 Patient Education: Obesity Completed 01/12/2016 Patient Education: Hypertension Completed 01/12/2016 Appointment: Kathy Espinosa WPtel: [address] [place], [place] [id number] (15 min) Moderate 12/01/2015 Visit Plan: Hypertension [...] the symptoms are not improving. 10/13/2015 Appointment: Ktahy Espinosa WPtel: [address] [place], [place] [address] (15 min) Moderate 10/13/2015 Patient Education: [...] TWICE DAILY 09/13/2015 Appointment: Kathy Espinosa WPtel: [address] [place], [place] [phone] (15 min) Moderate 09/13/2015 Patient Education: Patient Medication Summary Completed 09/13/2015 Patient Education: Hypertension Completed 09/13/2015 Appointment: Kathy Espinosa WPtel: [address] [place], [place] [phone] (15 min) Moderate 08/09/2015 Visit Plan: Hyperlipidemia [...] lipitor. 07/05/2015 Appointment: [facility] [phone] [facility] [place] New Patient 07/05/2015 Patient Education: Patient [...] of back probiotics - Culture sheba, errol meyer, or generic . URI - Pt advised [...] steroid allergy spray. we will send a refer ral to [facility] for physical therapy for your neck [...] - . Hypertension - well controlled - aleaxnder nue with current medications, continue with no [...] - one lesion each hand and on caodaism x 3 lesions and 2 lesions right caodaism
--- OUTSIDE RECORDS SUMMARY | 2020-04-12 22:36 | XMS REPORT | Continuity of Care Document ---
Author Organization Unknown Address Unknown Phone Unavailable Allergies Active Description Code Type Severity Reaction Onset Reported/Identified Relationship to Patient Clinical Status Yes No Known Drug Allergies [id number] Drug Allergy Unknown N/A 09/24/2011 Yes atorvastatin [id number] Drug Allergy Unknown N/A 02/25/2018 Medications There is no data. 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 09/24/2011 Ot V76.51 SCR EEN MAL NEOP- COLON 10/26/2011 Ot 079.99 VIR AL INFECTION NOS 10/26/2011 Ot 780.60 FEV ER, UNSPECIFIED 03/21/2015 SAMIR CONNOLLY MD, FACC FACP CCDS Ot 272.4 HYPERLIPIDEMIA NEC/NOS 03/21/2015 SAMIR CONNOLLY MD, FACC FACP CCDS Ot 278.00 OBESITY, NOS 03/21/2015 SAMIR CONNOLLY MD, FACC FACP CCDS Ot 338.29 OTHER CHRONIC PAIN 03/21/2015 SAMIR CONNOLLY MD, FACC FACP CCDS Ot 414.01 CORONARY ATHEROSCLEROSIS OF [place] CORON 03/21/2015 SAMIR CONNOLLY MD, FACC FACP [...] FACP CCDS Ot 719.41 JOINT PAIN-SHLDER 03/21/2015 CATHLEEN ARAMBULAC, SAMIR FACP CCDS Ot 724.5 BACKACHE NOS 03/21/2015 CATHLEEN WHITE FACC, SAMIR FACP CCDS Ot E944.4 ADV EFF DIURETICS NEC 03/21/2015 CATHLEEN WHITE FACC, SAMIR FACP CCDS Ot E947.8 ADV EFF MEDICINAL NEC 03/21/2015 CATHLEEN WHITE FACC, ALI FACP CCDS Ot V85.36 BODY MASS INDEX 36.0-36.9, ADULT 04/06/2015 TU CLAYTON MD Ot 786.05 04/06/2015 TU CLAYTON MD Ot 786.59 04/28/2015 TU CLAYTON MD Ot 786.05 04/28/2015 TU CLAYTON MD Ot 786.59 05/11/2015 DIMITRI WHITE, JOSE CARLOS [place] Ot 414.00 CORON ATHEROSCLER NOS TYPE VESSEL, NATIV 05/11/2015 DIMITRI WHITE, JOSE CARLOS [place] Ot 724.5 BACKACHE NOS 05/11/2015 DIMITRI WHITE, JOSE CARLOS [place] Ot 782.0 SKIN SENSATION DISTURB 05/11/2015 JOSE CARLOS MOSLEY MD T Ot V45.81 AORTOCORONARY BYPASS 05/11/2015 JOSE CARLOS MOSLEY MD Ot V45.82 PERCUTANEOUS TRANSLUM CORON ANGIOPLASTY 05/17/2015 TU CLAYTON MD Ot 786.05 05/17/2015 TU CLAYTON MD Ot 786.59 05/17/2015 CATHLEEN WHITE FACC, SAMIR FACP CCDS Ot V45.81 05/17/2015 CATHLEEN WHITE FACC, SAMIR FACP CCDS Ot V57.89 06/01/2015 CATHLEEN WHITE FACC, ALI FACP CCDS Ot V45.81 06/01/2015 CATHLEEN WHITE FACC, ALI FACP CCDS Ot V57.89 06/03/2015 CATHLEEN WHITE FACC, ALI FACP CCDS Ot V45.81 06/03/2015 CATHLEEN WHITE FACC, ALI FACP CCDS Ot V57.89 06/08/2015 CATHLEEN WHITE FACC, ALI FACP CCDS Ot V45.81 AORTOCORONARY BYPASS 06/08/2015 CATHLENE WHITE FACC, ALI FACP CCDS Ot V57.89 REHABILITATION PROC NEC 06/11/2015 CATHLEEN WHITE FACC, ALI FACP CCDS Ot V45.81 06/11/2015 [...] TU CLAYTON MD Ot 786.59 08/01/2015 KASEY ESPINOSA MD Ot M50.32 08/09/2015 TU CLAYTON MD Ot 786.05 08/09/2015 TU CLAYTON MD Ot 786.59 08/09/2015 CATHLEEN WHITE FACC, ALI FACP CCDS Ot 272.4 08/09/2015 CATHLEEN ARAMBULAC, ALI FACP CCDS Ot 278.00 08/09/2015 CATHLEEN ARAMBULAC, ALI FACP CCDS Ot 414.00 08/09/2015 CATHLEEN ARAMBULAC, ALI FACP CCDS Ot 414.8 08/09/2015 CATHLEEN WHITE FACC, ALI FACP CCDS Ot V45.81 08/09/2015 CATHLEEN WHITE FACC, ALI FACP CCDS Ot V57.89 08/09/2015 KASEY ESPINOSA MD Ot M50.32 08/09/2015 CATHLEEN WHITE FACC, ALI FACP CCDS Ot E66.9 OBESITY, UNSPECIFIED 08/09/2015 CATHLEEN WHITE FACC, ALI FACP CCDS Ot I25.10 ATHSCL HEART DISEASE OF [place] CORONARY 08/09/2015 CATHLEEN WHITE FACC, ALI FACP CCDS Ot I70.0 ATHEROSCLEROSIS OF [place] 08/09/2015 CATHLEEN WHITE FACC, SAMIR FACP CCDS Ot R07.89 OTHER CHEST PAIN 08/09/2015 CATHLEEN WHITE FACC, SAMIR FACP CCDS Ot R53.83 OTHER FATIGUE 08/09/2015 CATHLEEN WHITE FACC, ALI FACP CCDS Ot Z68.34 BODY MASS INDEX (BMI) 34.0-34.9, ADULT 08/09/2015 SAMIR CONNOLLY MD, FACC FACP CCDS Ot Z79.02 MANAGER ONLINE (CURRENT) USE OF ANTITHROMBOTI 08/09/2015 SAMIR CONNOLLY MD, FACC FACP CCDS Ot Z79.899 OTHER ASSISTED (CURRENT) DRUG THERAPY 08/09/2015 SAMIR CONNOLLY MD, FACC FACP CCDS Ot Z87.891 PERSONAL HISTORY OF NICOTINE DEPENDENCE 08/09/2015 SAMIR CONNOLLY MD, FACC FACP CCDS Ot Z95.1 PRESENCE OF AORTOCORONARY BYPASS GRAFT 08/09/2015 SAMIR CONNOLLY MD, FACC FACP CCDS Ot Z98.61 CORONARY ANGIOPLASTY STATUS 08/23/2015 SAMIR CONNOLLY MD, FACC FACP CCDS Ot V45.81 08/23/2015 SAMIR CONNOLLY MD, FACC FACP CCDS Ot V57.89 09/11/2015 SAMIR CONNOLLY MD, FACC FACP CCDS Ot Z48.812 ENCNTR FOR SURGICAL AFTCR FOLLOWING SURG 09/11/2015 SAMIR CONNOLLY MD, FACC FACP CCDS Ot Z95.1 PRESENCE OF AORTOCORONARY BYPASS GRAFT 09/14/2015 SAMIR CONNOLLY MD, FACC FACP CCDS Ot Z48.812 09/14/2015 SAMIR CONNOLLY MD, FACC FACP CCDS Ot Z95.1 09/14/2015 SAMIR CONNOLLY MD, FACC FACP CCDS Ot Z48.812 09/14/2015 ASMIR CONNOLLY MD, FACC FACP CCDS Ot Z95.1 09/14/2015 SAMIR CONNOLLY MD, FACC FACP CCDS Ot Z48.812 09/14/2015 CATHLEEN WHITE FACC, ALI FACP CCDS Ot Z95.1 09/14/2015 SAMIR CONNOLLY MD, FACC FACP CCDS Ot Z48.812 09/14/2015 SAMIR CONNOLLY MD, FACC FACP CCDS Ot Z95.1 10/26/2015 CATHLEEN WHITE [facility] CCDS Ot Z48.812 ENCNTR FOR SURGICAL AFTCR FOLLOWING SURG 10/26/2015 CATHLEEN WHITE [facility] CCDS Ot Z95.1 PRESENCE OF AORTOCORONARY BYPASS GRAFT 12/28/2015 YAHIR WHITE, RAMOS S Ot K21.9 GASTRO-ESOPHAGEAL REFLUX DISEASE WITHOUT 12/28/2015 YAHIR WHITE, RAMOS S Ot R06.0 2 SHORTNESS OF BREATH 12/29/2015 YAHIR WHITE, RAMOS S Ot K21.9 GASTRO-ESOPHAGEAL REFLUX DISEASE WITHOUT 12/29/2015 YAHIR MD RAMOS S Ot R06.0 2 SHORTNESS OF BREATH 01/02/2016 YAHIR WHITE, RAMOS S Ot K21.9 GASTRO-ESOPHAGEAL REFLUX DISEASE WITHOUT 01/02/2016 YAHIR , RAMOS S Ot R06.0 2 SHORTNESS OF BREATH 01/17/2016 YAHIR WHITE RAMOS S Ot K21.9 GASTRO-ESOPHAGEAL REFLUX DISEASE WITHOUT 01/17/2016 YAHIR WHITE, RAMOS S Ot R06.0 2 SHORTNESS OF BREATH 01/17/2016 YAHIR WHITE, RAMOS S Ot K21.9 GASTRO-ESOPHAGEAL REFLUX DISEASE WITHOUT 01/17/2016 YAHIR WHITE, RAMOS S Ot R06.0 2 SHORTNESS OF BREATH 04/03/2016 NABEEL WHITE, ROSITA M Ot K21.9 GASTRO-ESOPHAGEAL REFLUX DISEASE WITHOUT 04/03/2016 NABEEL WHITE, ROSITA M Ot Z01.818 ENCOUNTER FOR OTHER PREPROCEDURAL EXAMIN 04/04/2016 ROSITA LEES MD M Ot K21.9 GASTRO-ESOPHAGEAL REFLUX DISEASE WITHOUT 04/04/2016 NABEEL WHITE, ROSITA M Ot Z01.818 ENCOUNTER FOR OTHER PREPROCEDURAL EXAMIN 04/09/2016 NABEEL WHITE, ROSITA Ferris Ot K22.2 ESOPHAGEAL OBSTRUCTION 04/10/2016 NABEEL WHITE, ROSITA Ferris Ot K22.2 ESOPHAGEAL OBSTRUCTION 04/10/2016 ROSITA LEES MD Ot K22.2 ESOPHAGEAL OBSTRUCTION 08/13/2016 TU CLAYTON MD Ot 786.05 SHORTNESS OF BREATH 08/13/2016 TU CLAYTON MD Ot 786.59 CHEST PAIN NEC 08/13/2016 CATHLEENCATHERINE WHITE FACC, ALI FACP CCDS Ot 272.4 HYPERLIPIDEMIA NEC/NOS 08/13/2016 CATHLEEN WHITE FACC, ALI FACP CCDS Ot 278.00 OBESITY, NOS 08/13/2016 CATHLEEN WHITE FACC, ALI FACP CCDS Ot 414.00 CORON ATHEROSCLER NOS TYPE VESSEL, NATIV 08/13/2016 CATHLEEN WHITE FACC, ALI FACP CCDS Ot 414.8 CHR ISCHEMIC HRT DIS NEC 08/13/2016 FRANCISCA WHITE, KASEY Gonsalez Ot M50.32 OTHER CERVICAL DISC DEGENERATION, MID-CE 08/13/2016 RAMOS SINCLAIR MD S Ot K21.9 GASTRO-ESOPHAGEAL REFLUX DISEASE WITHOUT 08/13/2016 RAMOS SINCLAIR MD S Ot R06.0 2 SHORTNESS OF BREATH 08/13/2016 RAMOS SINCLAIR MD S Ot K21.9 GASTRO-ESOPHAGEAL REFLUX DISEASE WITHOUT 08/13/2016 RAMOS SINCLAIR MD S Ot R06.0 2 SHORTNESS OF BREATH 08/14/2016 CATHLEEN WHITE FACC, SAMIR FACP CCDS Ot E66.09 OTHER OBESITY DUE TO EXCESS CALORIES 08/14/2016 CATHLEEN WHITE FACC, ALI FACP CCDS Ot G47.33 OBSTRUCTIVE SLEEP APNEA (ADULT) (PEDIATR 08/14/2016 CATHLEEN WHITE FACC, ALI FACP CCDS Ot I25.10 ATHSCL HEART DISEASE OF [place] CORONARY 08/14/2016 CATHLEEN WHITE FACC, ALI FACP [...] CCDS Ot I25.10 ATHSCL HEART DISEASE OF [place] CORONARY 08/14/2016 CATHLEEN WHITE FACC, ALI FACP CCDS Ot I65.23 OCCLUSION AND STENOSIS OF [place] 08/14/2016 CATHLEEN WHITE FACC, ALI FACP CCDS Ot R06.02 SHORTNESS OF BREATH 09/06/2016 CATHLEEN WHITE FACC, ALI FACP CCDS Ot E66.09 OTHER OBESITY DUE TO EXCESS CALORIES 09/06/2016 CATHLEEN WHITE FACC, SAMIR FACP CCDS Ot G47.33 OBSTRUCTIVE SLEEP APNEA (ADULT) (PEDIATR 09/06/2016 CATHLEEN WHITE FACC, SAMIR FACP CCDS Ot I25.10 ATHSCL HEART DISEASE OF [place] CORONARY 09/06/2016 CATHLEEN WHITE FACC, SAMIR FACP CCDS Ot I65.23 OCCLUSION AND STENOSIS OF [place] 09/06/2016 CATHLEEN WHITE FACC, SAMIR FACP CCDS Ot R06.02 SHORTNESS OF BREATH 01/21/2017 SHEKHAR DAMICO ENROLLMENT ELIGIBILITY REPRESENTATIVE Ot M79.604 PAIN IN RIGHT LEG 01/21/2017 SHEKHAR DAMICO ENROLLMENT ELIGIBILITY REPRESENTATIVE Ot M79.604 PAIN IN RIGHT LEG 01/27/2017 SHEKHAR DAMICO ENROLLMENT ELIGIBILITY REPRESENTATIVE Ot M79.604 PAIN IN RIGHT LEG 01/27/2017 SHEKHAR DAMICO ENROLLMENT ELIGIBILITY REPRESENTATIVE Ot R22.41 LOCALIZED SWELLING, MASS AND LUMP, RIGHT 02/18/2017 SHEKHAR DAMICO ENROLLMENT ELIGIBILITY REPRESENTATIVE Ot M79.604 PAIN IN RIGHT LEG 02/18/2017 SHEKHAR DAMICO ENROLLMENT ELIGIBILITY REPRESENTATIVE Ot R22.41 LOCALIZED SWELLING, MASS AND LUMP, RIGHT 03/26/2017 FRANCISCA WHITE, KASEY Gonsalez Ot M47.816 SPONDYLOSIS W/O MYELOPATHY OR RADICULOPA 04/17/2017 KASEY ESPINOSA MD Ot M47.816 SPONDYLOSIS W/O MYELOPATHY OR RADICULOPA 05/08/2017 LUIS M DEE MD Ot E78. 00 PURE HYPERCHOLESTEROLEMIA, UNSPECIFIED 05/08/2017 LUIS M DEE MD Ot G89. 29 OTHER CHRONIC PAIN 05/08/2017 LUIS M DEE MD Ot I25. 10 ATHSCL HEART DISEASE OF [place] CORONARY 05/08/2017 LUIS M DEE MD Ot K21. 9 GASTRO-ESOPHAGEAL REFLUX DISEASE WITHOUT 05/08/2017 LUIS M DEE MD Ot M54. 5 LOW BACK PAIN 05/08/2017 LUIS M DEE MD Ot M54. 9 DORSALGIA, UNSPECIFIED 05/08/2017 LUIS M DEE MD Ot N20. 0 CALCULUS OF KIDNEY 05/08/2017 LUIS M DEE MD Ot Z79. 82 MANAGER ONLINE (CURRENT) USE OF ASPIRIN 05/08/2017 LUIS M DEE MD Ot Z95. 1 PRESENCE OF AORTOCORONARY BYPASS GRAFT 05/08/2017 LUIS M DEE MD Ot Z95. 5 PRESENCE OF CORONARY ANGIOPLASTY IMPLANT 05/10/2017 LUIS M DEE MD Ot E78. 00 PURE HYPERCHOLESTEROLEMIA, UNSPECIFIED 05/10/2017 LUIS M DEE MD Ot G89. 29 OTHER CHRONIC PAIN 05/10/2017 LUIS M DEE MD Ot I25. 10 ATHSCL HEART DISEASE OF [place] CORONARY 05/10/2017 LUIS M DEE MD Ot K21. 9 GASTRO-ESOPHAGEAL REFLUX DISEASE WITHOUT 05/10/2017 LUIS M DEE MD Ot M54. 5 LOW BACK PAIN 05/10/2017 LUIS M DEE MD Ot M54. 9 DORSALGIA, UNSPECIFIED 05/10/2017 LUISM DEE MD Ot N20. 0 CALCULUS OF KIDNEY 05/10/2017 LUIS M DEE MD Ot Z79. 82 MANAGER ONLINE (CURRENT) USE OF ASPIRIN 05/10/2017 LUIS M DEE MD Ot Z95. 1 PRESENCE OF AORTOCORONARY BYPASS GRAFT 05/10/2017 LUIS M DEE MD Ot Z95. 5 PRESENCE OF CORONARY ANGIOPLASTY IMPLANT 02/13/2018 TU [...] 414.8 CHR ISCHEMIC HRT DIS NEC 02/13/2018 FRANCISCA WHITE, KASEY Gonsalez Ot M50.32 OTHER CERVICAL DISC DEGENERATION, MID-CE 02/13/2018 RAMOS SINCLAIR MD Ot K21.9 GASTRO-ESOPHAGEAL REFLUX DISEASE WITHOUT 02/13/2018 RAMOS SINCLAIR MD Ot R06.0 2 SHORTNESS OF BREATH 02/13/2018 RAMOS SINCLAIR MD Ot K21.9 GASTRO-ESOPHAGEAL REFLUX DISEASE WITHOUT 02/13/2018 YAHIR WHITE, RAMOS S Ot R06.0 2 SHORTNESS OF BREATH 02/13/2018 CATHLEEN WHITE FACC, ALI FACP CCDS Ot E66.09 OTHER OBESITY DUE TO EXCESS CALORIES 02/13/2018 CATHLEEN WHITE FACC, ALI FACP CCDS Ot G47.33 OBSTRUCTIVE SLEEP APNEA (ADULT) (PEDIATR 02/13/2018 CATHLEEN WHITE FACC, ALI FACP CCDS Ot I25.10 ATHSCL HEART DISEASE OF [place] CORONARY 02/13/2018 CATHLEEN WHITE FACC, ALI FACP CCDS Ot I65.23 OCCLUSION AND STENOSIS OF [place] 02/13/2018 CATHLEEN WHITE FACC, ALI FACP CCDS Ot R06.02 SHORTNESS OF BREATH 02/13/2018 SHEKHAR DAMICO ENROLLMENT ELIGIBILITY REPRESENTATIVE Ot M79.604 PAIN IN RIGHT LEG 02/13/2018 SHEKHAR DAMICO ENROLLMENT ELIGIBILITY REPRESENTATIVE Ot R22.41 LOCALIZED SWELLING, MASS AND LUMP, RIGHT 02/13/2018 FRANCISCA WHITE, KASEY Gonsalez Ot M47.816 SPONDYLOSIS W/O MYELOPATHY OR RADICULOPA 02/19/2018 JOI PALACIOS ENROLLMENT ELIGIBILITY REPRESENTATIVE Ot I25.10 ATHSCL HEART DISEASE OF [place] CORONARY 02/19/2018 JOI PALACIOS ENROLLMENT ELIGIBILITY REPRESENTATIVE Ot I25.5 ISCHEMIC CARDIOMYOPATHY 02/25/2018 CATHLEEN WHITE FACC, ALI FACP CCDS Ot E66.9 OBESITY, UNSPECIFIED 02/25/2018 CATHLEEN WHITE FACC, ALI FACP CCDS Ot E78.5 HYPERLIPIDEMIA, UNSPECIFIED 02/25/2018 CATHLEEN WHITE FACC, ALI FACP CCDS Ot G47.33 OBSTRUCTIVE SLEEP APNEA (ADULT) (PEDIATR 02/25/2018 CATHLEEN WHITE FACC, ALI FACP CCDS Ot I25.10 ATHSCL HEART DISEASE OF [place] CORONARY 02/25/2018 CATHLEEN WHITE FACC, ALI FACP CCDS Ot I25.5 ISCHEMIC CARDIOMYOPATHY 02/25/2018 CATHLEEN WHITE FACC, ALI FACP CCDS Ot K21.9 GASTRO-ESOPHAGEAL REFLUX DISEASE WITHOUT 02/25/2018 CATHLEEN WHITE FACC, ALI FACP CCDS Ot R73.01 IMPAIRED FASTING GLUCOSE 02/25/2018 CATHLEEN WHITE FACC, ALI FACP CCDS Ot Z68.36 BODY MASS INDEX (BMI) 36.0-36.9, ADULT 02/25/2018 CATHLEEN WHITE FACC, ALI FACP CCDS Ot Z79.02 ASSISTED (CURRENT) USE OF ANTITHROMBOTI 02/25/2018 CATHLEEN WHITE FACC, ALI FACP CCDS Ot Z79.82 ASSISTED (CURRENT) USE OF ASPIRIN 02/25/2018 CATHLEEN WHITE FACC, ALI FACP CCDS Ot Z79.899 OTHER MANAGER ONLINE (CURRENT) DRUG THERAPY 02/25/2018 CATHLEEN WHITE FACC, ALI FACP CCDS Ot Z87.891 PERSONAL HISTORY OF NICOTINE DEPENDENCE 02/25/2018 CATHLEEN WHITE FACC, ALI FACP CCDS Ot Z95.1 PRESENCE OF AORTOCORONARY BYPASS GRAFT 02/25/2018 CATHLEEN WHITE FACC, ALI FACP CCDS Ot Z95.5 PRESENCE OF CORONARY ANGIOPLASTY IMPLANT 03/13/2018 JOI PALACIOS ENROLLMENT ELIGIBILITY REPRESENTATIVE Ot I25.10 ATHSCL HEART DISEASE OF [place] CORONARY 03/13/2018 JOI PALACIOS ENROLLMENT ELIGIBILITY REPRESENTATIVE Ot I25.5 ISCHEMIC CARDIOMYOPATHY 09/19/2018 TU CLAYTON MD Ot 786.05 SHORTNESS OF BREATH 09/19/2018 TU CLAYTON MD Ot 786.59 CHEST PAIN NEC 09/19/2018 CATHLEEN WHITE FACC, SAMIR FACP CCDS Ot 272.4 HYPERLIPIDEMIA NEC/NOS 09/19/2018 CATHLEEN WHITE FACC, ALI FACP CCDS Ot 278.00 OBESITY, NOS 09/19/2018 CATHLEEN WHITE FACC, ALI FACP CCDS Ot 414.00 CORON ATHEROSCLER NOS TYPE VESSEL, NATIV 09/19/2018 CATHLEEN WHITE FACC, ALI FACP CCDS Ot 414.8 CHR ISCHEMIC HRT DIS NEC 09/19/2018 KASEY ESPINOSA MD Ot M50.32 OTHER CERVICAL DISC DEGENERATION, MID-CE 09/19/2018 RAMOS SINCLAIR MD S Ot K21.9 GASTRO-ESOPHAGEAL REFLUX DISEASE WITHOUT 09/19/2018 RAMOS SINCLAIR MD S Ot R06.0 2 SHORTNESS OF BREATH 09/19/2018 RAMOS SINCLAIR MD S Ot K21.9 GASTRO-ESOPHAGEAL REFLUX DISEASE WITHOUT 09/19/2018 RAMOS SINCLAIR MD S Ot R06.0 2 SHORTNESS OF BREATH 09/19/2018 CATHLEEN WHITE FACC, ALI FACP CCDS Ot E66.09 OTHER OBESITY DUE TO EXCESS CALORIES 09/19/2018 CATHLEEN WHITE FACC, ALI FACP CCDS Ot G47.33 OBSTRUCTIVE SLEEP APNEA (ADULT) (PEDIATR 09/19/2018 CATHLEEN WHITE FACC, ALI FACP CCDS Ot I25.10 ATHSCL HEART DISEASE OF [place] CORONARY 09/19/2018 CATHLEEN WHITE FACC, ALI FACP CCDS Ot I65.23 OCCLUSION AND STENOSIS OF [place] 09/19/2018 CATHLEEN WHITE FACC, ALI FACP CCDS Ot R06.02 SHORTNESS OF BREATH 09/19/2018 SHEKHAR DAMICO ENROLLMENT ELIGIBILITY REPRESENTATIVE Ot M79.604 PAIN IN RIGHT LEG 09/19/2018 SHEKHAR DAMICO ENROLLMENT ELIGIBILITY REPRESENTATIVE Ot R22.41 LOCALIZED SWELLING, MASS AND LUMP, RIGHT 09/19/2018 FRANCISCA WHITE, KASEY Gonsalez Ot M47.816 SPONDYLOSIS W/O MYELOPATHY OR RADICULOPA 09/19/2018 JOI PALACIOS ENROLLMENT ELIGIBILITY REPRESENTATIVE Ot I25.10 ATHSCL HEART DISEASE OF [place] CORONARY 09/19/2018 JOI PALACIOS ENROLLMENT ELIGIBILITY REPRESENTATIVE Ot I25.5 ISCHEMIC CARDIOMYOPATHY 10/09/2018 TITUS NICHOLSON MD Ot M43.1 2 SPONDYLOLISTHESIS, CERVICAL REGION 10/09/2018 TITUS NICHOLSON MD Ot M46.8 2 OTH INFLAMMATORY SPONDYLOPATHIES, CERVIC 10/09/2018 TITUS NICHOLSON MD Ot M48.0 2 SPINAL STENOSIS, CERVICAL REGION 10/09/2018 TITUS NICHOLSON MD Ot M54.1 2 RADICULOPATHY, CERVICAL REGION 10/09/2018 TITUS NICHOLSON MD Ot Z98.1 ARTHRODESIS STATUS 04/29/2019 TU CLAYTON MD Ot 786.05 SHORTNESS OF BREATH 04/29/2019 TU CLAYTON MD Ot 786.59 CHEST PAIN NEC 04/29/2019 CATHLEEN WHITE FACC, SAMIR FACP CCDS Ot 272.4 HYPERLIPIDEMIA NEC/NOS 04/29/2019 CATHLEEN WHITE FACC, SAMIR FACP CCDS Ot 278.00 OBESITY, NOS 04/29/2019 CATHLEEN WHITE FACC, ALI FACP CCDS Ot 414.00 CORON ATHEROSCLER NOS TYPE VESSEL, NATIV 04/29/2019 CATHLEEN WHITE FACC, ALI FACP CCDS Ot 414.8 CHR ISCHEMIC HRT DIS NEC 04/29/2019 FRANCISCA WHITE, KASEY Gonsalez Ot M50.32 OTHER CERVICAL DISC DEGENERATION, MID-CE 04/29/2019 YAHIR WHITE, RAMOS S Ot K21.9 GASTRO-ESOPHAGEAL REFLUX DISEASE WITHOUT 04/29/2019 YAHIR WHITE, RAMOS S Ot R06.0 2 SHORTNESS OF BREATH 04/29/2019 YAHIR WHITE, RAMOS S Ot K21.9 GASTRO-ESOPHAGEAL REFLUX DISEASE WITHOUT 04/29/2019 YAHIR WHITE, RAMOS S Ot R06.0 2 SHORTNESS OF BREATH 04/29/2019 CATHLEEN WHITE FACC, ALI FACP CCDS Ot E66.09 OTHER OBESITY DUE TO EXCESS CALORIES 04/29/2019 CATHLEEN WHITE FACC, ALI FACP CCDS Ot G47.33 OBSTRUCTIVE SLEEP APNEA (ADULT) (PEDIATR 04/29/2019 CATHLEEN WHITE FACC, ALI FACP CCDS Ot I25.10 ATHSCL HEART DISEASE OF [place] CORONARY 04/29/2019 CATHLEEN WHITE FACC, ALI FACP CCDS Ot I65.23 OCCLUSION AND STENOSIS OF BILATERAL [place] 04/29/2019 CATHLEEN WHITE FACC, ALI FACP CCDS Ot R06.02 SHORTNESS OF BREATH 04/29/2019 SHEKHAR DAMICO ENROLLMENT ELIGIBILITY REPRESENTATIVE Ot M79.604 PAIN IN RIGHT LEG 04/29/2019 SHEKHAR DAMICO ENROLLMENT ELIGIBILITY REPRESENTATIVE Ot R22.41 LOCALIZED SWELLING, MASS AND LUMP, RIGHT 04/29/2019 FRANCISCA WHITE, KASEY Gonsalez Ot M47.816 SPONDYLOSIS W/O MYELOPATHY OR RADICULOPA 04/29/2019 JOI PALACIOS ENROLLMENT ELIGIBILITY REPRESENTATIVE Ot I25.10 ATHSCL HEART DISEASE OF [place] CORONARY 04/29/2019 JOI PALACIOS ENROLLMENT ELIGIBILITY REPRESENTATIVE Ot I25.5 ISCHEMIC CARDIOMYOPATHY 04/29/2019 LYN WHITE, TITUS Crenshaw Ot M43.1 2 SPONDYLOLISTHESIS, CERVICAL REGION 04/29/2019 LYN WHITE, TITUS Crenshaw Ot M46.8 2 OTH INFLAMMATORY SPONDYLOPATHIES, CERVIC 04/29/2019 LYN WHITE, TITUS Crenshaw Ot M48.0 2 SPINAL STENOSIS, CERVICAL REGION 04/29/2019 TITUS NICHOLSON MD Ot M54.1 2 RADICULOPATHY, CERVICAL REGION 04/29/2019 LYN WHITE, TITUS Crenshaw Ot Z98.1 ARTHRODESIS STATUS 08/26/2019 NICK ORELLANA FUND DEVELOPMENT MANAGER Ot R0 5 COUGH 08/26/2019 NICK ORELLANA FUND DEVELOPMENT MANAGER Ot R06.00 DYSPNEA, UNSPECIFIED 08/26/2019 NICK ORELLANA FUND DEVELOPMENT MANAGER Ot Z98.890 OTHER SPECIFIED POSTPROCEDURAL STATES 09/15/2019 NICK ORELLANA FUND DEVELOPMENT MANAGER Ot R0 5 COUGH 09/15/2019 NICK ORELLANA FUND DEVELOPMENT MANAGER Ot R06.00 DYSPNEA, UNSPECIFIED 09/15/2019 NICK ORELLANA FUND DEVELOPMENT MANAGER Ot Z98.890 OTHER SPECIFIED POSTPROCEDURAL STATES 11/06/2019 W E78.2 Mixe d hyperlipidemia [place], [place] 11/06/2019 W F33.0 Radha r depressive disorder, recurrent, mild [place], [place] 11/06/2019 W I10 Essent ial (primary) hypertension [place], [place] 11/06/2019 W K21.9 Ladan ro-esophageal reflux disease without esophagitis [place], [place] 11/06/2019 W R05 Cough [place], [place] 11/06/2019 W R73.01 Imp aired fasting glucose [place], [place] 11/06/2019 W I10 Essent ial (primary) hypertension [place], [place] 11/06/2019 W I12.9 Stag e 3 chronic kidney disease due to benign hypertension [place], [place] 11/06/2019 W M17.0 Prim tiara osteoarthritis of both knees [place], [place] 11/06/2019 W N18.3 Brand Representative soco kidney disease, stage 3 (moderate) [place], [place] 11/06/2019 W R05 Cough [place], [place] 02/11/2020 W I10 Essent ial (primary) hypertension [place], [place] 02/11/2020 W I12.9 Stag e 3 chronic kidney disease due to benign hypertension [place], [place] 02/11/2020 W M17.0 Prim tiara osteoarthritis of both knees [place], [place] 02/11/2020 W N18.3 Brand Representative soco kidney disease, stage 3 (moderate) [place], [place] 02/11/2020 W R05 Cough [place], [place] 03/21/2020 W C44.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 [place], [place] 03/21/2020 W I10 Essent ial (primary) hypertension Kasey Espinosa 03/21/2020 W L57.0 Acti soco keratosis [place] Kasey 03/31/2020 W D04.9 Basa l cell carcinoma (BCC) in situ of skin Kasey Espinosa 04/11/2020 W S40.022A C ontusion of left upper extremity, initial encounter Kasey Espinosa 04/11/2020 W S40.812A A brasion of arm, left Kasey Espinosa Procedures Code Description Performed By Per formed On 00.41 PROC EDURE ON TWO VESSELS 03/19/2015 00.48 INSE RTION OF FOUR OR MORE VASCULAR STENT 03/19/2015 00.66 PERC UTANEOUS TRANSLUMINAL CORONARY ANGIO 03/19/2015 36.06 EMERY NARY ARTERY STENT INSERTION NON-DRUG 03/19/2015 88.42 CONT RAST AORTOGRAM 03/19/[address]/INFUSE PLATELET INHIBITOR 03/19/2015 Results Test Result Range Whole blood basic metabolic panel - 120 01/22 07:51 Serum or plasma sodium measurement (moles/volume) 142 mmol/L 135-145 Serum or plasma potassium measurement (moles/volume) 4.6 mmol/L 3.6-5.0 Serum or plasma chloride measurement (moles/volume) 106 mmol/L 98-107 Carbon dioxide 27 mmol/L 21-32 Serum or plasma anion gap determination (moles/volume) 9 mmol/L 5-14 Serum or plasma urea nitrogen measurement (mass/volume ) 19 mg/dL 7-18 Serum or plasma creatinine measurement (mass/volume) 1.39 mg/dL 0.60-1.30 Serum or plasma urea nitrogen/creatinine mass ratio 14 NRG Serum or plasma creatinine measurement w ith calculation of estimated glomerular filtration rate 50 NRG Serum or plasma glucose measurement (mass/volume) 120 mg/dL 70-105 Serum or plasma calcium measurement (mass/volume) 9.0 mg/dL 8.5-10.1 Complete urinalysis with reflex to cultu re - 05/08/17 08:23 Urine color determination YELLOW NRG Urine clarity determination VERY CLOUDY NRG Urine pH measurement by test strip 5 5-9 Specific gravity of urine by test strip 1.020 1.016-1.022 Urine protein assay by test strip, semi-quantitative 2+ NEGATIVE Urine glucose detection by automated test strip NE GATIVE NEGATIVE Erythrocytes detection in urine sediment by light micr oscopy 5+ NEGATIVE Urine ketones detection by automated test strip NE GATIVE NEGATIVE Urine nitrite detection by test strip NEGATIVE NEGATIVE Urine total bilirubin detection by test strip NEGA TIVE NEGATIVE Urine urobilinogen measurement by automated test strip (mass/volume) NORMAL NORMAL Urine leukocyte esterase detection by dipstick 2+ NEGATIVE Automated urine sediment erythrocyte cou nt by microscopy (number/high power field) > [HPF] NRG Automated urine sediment leukocyte count by microscopy (number/high power field) [HPF] NRG Bacteria detection in urine sediment by light microsco py FEW NRG Crystals detection in urine sediment by light microsco py PRESENT NRG Casts detection in urine sediment by light microscopy NONE NRG Mucus detection in urine sediment by light microscopy NEGATIVE NRG Complete urinalysis with reflex to culture YES NRG Amorphous sediment detection in urine sediment by ligh t microscopy FEW KEVIN URATES NRG Bacterial urine culture - 05/08/17 08:23 URINE CULTURE RESULTS LOW COLONY COUNT NRG Complete blood count (CBC) with automate d white blood cell (WBC) differential - 05/08/17 08:45 Blood leukocytes automated count (number/volume) 8.9 10*3/uL 4.3-11.0 Blood erythrocytes automated count (number/volume) 5.10 10*6/uL 4.35-5.85 Venous blood hemoglobin measurement (mass/volume) 14.8 g/dL 13.3-17.7 Blood hematocrit (volume fraction) 44 % 40-54 Automated erythrocyte mean corpuscular volume 86 [ foz_us] 80-99 Automated erythrocyte mean corpuscular h emoglobin (mass per erythrocyte) 29 pg 25-34 Automated erythrocyte mean corpuscular h emoglobin concentration measurement (mass/volume) 34 g/dL 32-36 Automated erythrocyte distribution width ratio 12. 9 % 10.0- 14.5 Automated blood platelet count (count/volume) 168 10*3/uL [...] 10*3 1.0-4.0 Blood monocytes automated count (number/volume) 0. 7 10*3 0.0-1.0 Automated eosinophil count 0.0 10*3/uL 0 .0-0.3 Automated blood basophil count (count/volume) 0.0 10*3/uL 0.0-0.1 Comprehensive metabolic panel - 05/08/17 08:45 Serum or plasma sodium measurement (moles/volume) 140 mmol/L 135-145 Serum or plasma potassium measurement (moles/volume) 3.9 mmol/L 3.6-5.0 Serum or plasma chloride measurement (moles/volume) 107 mmol/L 98-107 Carbon dioxide 23 mmol/L 21-32 Serum or plasma anion gap determination (moles/volume) 10 mmol/L 5-14 Serum or plasma urea nitrogen measurement (mass/volume ) 30 mg/dL 7-18 Serum or plasma creatinine measurement (mass/volume) 1.48 mg/dL 0.60-1.30 Serum or plasma urea nitrogen/creatinine mass ratio 20 NRG Serum or plasma creatinine measurement w ith calculation of estimated glomerular filtration rate 46 NRG Serum or plasma glucose measurement (mass/volume) 126 mg/dL 70-105 Serum or plasma calcium measurement (mass/volume) 9.2 mg/dL 8.5-10.1 Serum or plasma total bilirubin measurement (mass/volu me) 1.7 mg/dL 0.1-1.0 Serum or plasma alkaline phosphatase drew surement (enzymatic activity/volume) 97 U/L 40-136 Serum or plasma aspartate aminotransfera se measurement (enzymatic activity/volume) 19 U/L 5-34 Serum or plasma alanine aminotransferase measurement (enzymatic activity/volume) 20 U/L 0-55 Serum or plasma protein measurement (mass/volume) 7.1 g/dL 6.4-8.2 Serum or plasma albumin measurement (mass/volume) 4.1 g/dL 3.2-4.5 Magnesium - 05/08/17 08:45 Magnesium 2.0 mg/dL 1.8-2.4 Automated blood complete blood count (he mogram) panel - 02/25/18 09:20 Blood leukocytes automated count (number/volume) 4.9 10*3/uL 4.3-11.0 Blood erythrocytes automated count (number/volume) 4.95 10*6/uL 4.35-5.85 Venous blood hemoglobin measurement (mass/volume) 14.6 g/dL 13.3-17.7 Blood hematocrit (volume fraction) 43 % 40-54 Automated erythrocyte mean corpuscular volume 88 [ foz_us] 80-99 Automated erythrocyte mean corpuscular h emoglobin (mass per erythrocyte) 30 pg 25-34 Automated erythrocyte mean corpuscular h emoglobin concentration measurement (mass/volume) 34 g/dL 32-36 Automated erythrocyte distribution width ratio 13. 3 % 10.0- 14.5 Automated blood platelet count (count/volume) 169 10*3/uL 130-400 Automated blood platelet mean volume measurement 10.7 [foz_us] 7.4-10.4 PT panel in platelet poor plasma by coag ulation assay - 02/25/18 09:20 Prothrombin time (PT) in platelet poor plasma by coagu lation assay 13.3 s 12.2-14.7 INR in platelet poor plasma or blood by coagulation as say 1.0 0.8-1.4 Activated partial thromboplastin time (a PTT) in platelet poor plasma bycoagulation assay - 02/25/18 09:20 Activated partial thromboplastin time (a PTT) in platelet poor plasma bycoagulation assay 26 s 24-35 Comprehensive metabolic panel - 02/25/18 09:20 Serum or plasma sodium measurement (moles/volume) 142 mmol/L 135-145 Serum or plasma potassium measurement (moles/volume) 4.3 mmol/L 3.6-5.0 Serum or plasma chloride measurement (moles/volume) 109 mmol/L 98-107 Carbon dioxide 25 mmol/L 21-32 Serum or plasma anion gap determination (moles/volume) 8 mmol/L 5-14 Serum or plasma urea nitrogen measurement (mass/volume ) 23 mg/dL 7-18 Serum or plasma creatinine measurement (mass/volume) 1.11 mg/dL 0.60-1.30 Serum or plasma urea nitrogen/creatinine mass ratio 21 NRG Serum or plasma creatinine measurement w ith calculation of estimated glomerular filtration rate > NRG Serum or plasma glucose measurement (mass/volume) 124 mg/dL 70-105 Serum or plasma calcium measurement (mass/volume) 9.2 mg/dL 8.5-10.1 Serum or plasma total bilirubin measurement (mass/volu me) 0.8 mg/dL 0.1-1.0 Serum or plasma alkaline phosphatase drew surement (enzymatic activity/volume) 80 U/L 40-136 Serum or plasma aspartate aminotransfera se measurement (enzymatic activity/volume) 21 U/L 5-34 Serum or plasma alanine aminotransferase measurement (enzymatic activity/volume) 21 U/L 0-55 Serum or plasma protein measurement (mass/volume) 6.9 g/dL 6.4-8.2 Serum or plasma albumin measurement (mass/volume) 4.1 g/dL 3.2-4.5 Lipid 1996 panel - 02/25/18 09:20 Serum or plasma triglyceride measurement (mass/volume) 131 mg/dL <150 Serum or plasma cholesterol measurement (mass/volume) 158 mg/dL < 200 Serum or plasma cholesterol in HDL measurement (mass/v olume) 40 mg/dL 40-60 Cholesterol in LDL [mass/volume] in serum or plasma by direct assay 100 mg/dL 1-129 Serum or plasma cholesterol in VLDL measurement (mass/ volume) 26 mg/dL 5-40 Methicillin resistant Staphylococcus aur eus (MRSA) screening culture - 02/25/18 09:20 Methicillin resistant Staphylococcus aureus (MRSA) scr eening culture NEG NRG Encounters ACCT No. Visit Date/Time Discharge Status Pt. Type Provider Facility Loc./Unit Complaint [id number] 06/03/2017 18:26:08 06/03/2017 23:59:5 9 CLS Outpatient [id number] 08/25/2019 14:07:00 23:59:59 CLS Outpatient NICK ORELLANA APRN [facility] RAD COUGH [id number] 04/29/2019 09:30:00 09:30:00 CAN Preadmit ELIDA AMIN [facility] RAD CERVICALGIA, LOW BACK P AIN [id number] 09/22/2018 11:36:00 23:59:59 CLS Outpatient TITUS NICHOLSON MD [facility] RAD CERVICAL SPINAL STENOSI S [id number] 02/25/2018 08:47:00 018 17:50:00 DIS Outpatient CATHLEEN WHITE FACC, SAMIR STARKS CC DS [facility] CATH CAD,HL,BENJAMIN [id number] 02/18/2018 07:27:00 018 23:59:59 CLS Outpatient JOI PALACIOS [facility] CARD CAD,CARDIOMYOPATHY,ISCHEMIC [id number] 05/08/2017 07:26:00 017 11:43:00 DIS Emergency LUIZ WHITE, LUIS M Crenshaw [facility] ER PAIN RIGHT SIDE LOWER B ACK [id number] 03/25/2017 11:02:00 017 23:59:59 CLS Outpatient KASEY ESPINOSA MD [facility] RAD BACK PAIN [id number] 01/21/2017 09:53:00 017 23:59:59 CLS Outpatient SHEKHAR DAMICO [facility] RAD R LEG PAIN, SWE LLING [id number] 08/13/2016 07:43:00 016 23:59:59 CLS Outpatient CATHLEEN WHITE FACKenzie, SAMIR STARKS CC DS [facility] RAD OBESITY,BENJAMIN ,CAD,SOB [id number] 04/09/2016 08:34:00 016 11:45:00 DIS Outpatient ROSITA LEES MD [facility] SDC REFLEX [id number] 04/03/2016 05:38:00 016 09:54:00 DIS Outpatient ROSITA LEES MD [facility] PREOP REFLEX [id number] 12/28/2015 16:23:00 016 23:59:59 CLS Outpatient RAMOS SINCLAIR MD [facility] RT SOA [id number] 12/27/2015 08:34:00 016 23:59:59 CLS Outpatient RAMOS SINCLAIR MD [facility] RAD GERD [id number] 10/24/2015 12:01:00 13:19:00 DIS Outpatient CATHLEEN WHITE FACC, SAMIR FACP CC DS [facility] CR STATUS POST ACB [id number] 08/31/2015 08:33:00 00:01:00 DIS Outpatient CATHLEEN WHITE FACC, SAMIR FACP CC DS [facility] CR STATUS POST ACB [id number] 08/09/2015 07:30:00 17:20:00 DIS Outpatient CATHLEEN WHITE FACC, ALI FACP CC DS [facility] CATH CAD,CHEST PAIN,HLP,CARDIO MYOPATHY [id number] 07/07/2015 07:26:00 23:59:59 CLS Outpatient KASEY ESPINOSA MD [facility] RAD NECK PAIN [id number] 06/08/2015 11:41:00 00:01:00 DIS Outpatient CATHLEEN WHITE FACC, SAMIR FACP CC DS [facility] CR STATUS POST ACB [id number] 05/18/2015 10:01:00 23:59:59 CLS Outpatient CATHLEEN WHITE FACC, SAMIR FACP CC DS [facility] CARD CAD,ISCHEMI C CARDIOMOPATHY [id number] 05/11/2015 16:31:00 18:38:00 DIS Emergency JOSE CARLOS MOSLEY MD [facility] ER L ARM PAIN [id number] 03/18/2015 12:00:00 15:04:00 DIS Inpatient CATHLEEN WHITE FACC, SAMIR FACP CCD S [facility] CSD ANGINA,CHF [id number] 03/16/2015 11:08:00 23:59:59 CLS Outpatient TU CLAYTON MD [facility] RAD SOB,CHEST PRESSURE [id number] 04/12/2020 20:12:[address] Emergency MODESTO BENDER DO [facility] ER CHEST PAIN [id number] 10/26/2011 10:45:00 Document Registration [id number] 09/24/2011 07:53:00 Document Registration
== END 2020-04-12 22:34 | disposition home or self-care (01) ==
LOC: EDUNIT# 20:11 → ER 20:12
DX: S20.219A Contusion of unspecified front wall of thorax, initial encounter (principal); I25.10 Atherosclerotic heart disease of native coronary artery without angina pectoris; E78.00 Pure hypercholesterolemia, unspecified; K21.9 Gastro-esophageal reflux disease without esophagitis; Z88.8 Allergy status to other drugs, medicaments and biological substances; Z79.82 Long term (current) use of aspirin; Z95.1 Presence of aortocoronary bypass graft; Z87.891 Personal history of nicotine dependence; Z79.02 Long term (current) use of antithrombotics/antiplatelets; X50.1XXA Overexertion from prolonged static or awkward postures, initial encounter
CPT/HCPCS: 36415; 71045; 71260; 74177; 80053; 82150; 82550; 82553; 83690; 83735; 83874; 83880; 84484; 85025; 85610; 85730; 93005; 93041; 96372

== ENCOUNTER → 2022-04-25 | Outpatient (CLI) | payer MEDICARE, OTHER ==
[~2022-04-25] MED LIST changes: +ASPI-1238 PO; -ASPI-983 PO; -B CO1TAB4 PO; +B-CO1TAB5 PO; +ESCI-2 PO; -ESCI10TA55 PO; +ESCI20TA39 PO; -ESCI20TA45 PO; -FOLI0.4T2 PO; +FOLI0.4T6 PO; +MELO15TA14 PO; -PANT40TA3 PO; +PANT40TA52 PO; +RT-ALBUTEROL SULF 2.5 MG/3 ML PRE-MIX VIAL INH ONE; +TRAM-42 PO
--- NOTE | 2022-04-25 17:15 | Diagnostic Imaging Report ---
INDICATION: COPD, GERD, BENJAMIN, asthma, hiatal hernia, postnasal drip COMPARISON: 04/12/2020. FINDINGS: Frontal and lateral views of the chest demonstrate normal heart size and pulmonary vascularity. The lungs are clear. There is no sign of infiltrate, pleural effusion or pneumothorax. The visualized osseous structures show no acute abnormality. Sternotomy wires and calcified aortic atherosclerosis are noted. IMPRESSION: No acute process. No sign of infiltrate, effusion or pneumothorax. Dictated by: Dictated on workstation # [id number]
== END ==
LOC: RT 12:30
PROVIDERS: ATTEND Internal Medicine Critical Care Medicine
DX: J44.9 Chronic obstructive pulmonary disease, unspecified (principal); K21.9 Gastro-esophageal reflux disease without esophagitis; G47.33 Obstructive sleep apnea (adult) (pediatric); K44.9 Diaphragmatic hernia without obstruction or gangrene; R09.82 Postnasal drip
CPT/HCPCS: 71046; 94060; 94621